=== PATIENT | male | born 1940 | race Caucasian/White ===

== ENCOUNTER → 2016-09-25 | Outpatient (CLI) | payer OTHER ==
[~2016-09-25] MED LIST: ACET-1256 PO; ACET-1325 PO; APR25 PO; ASPEC81 PO; ASPI325T39 PO; ASPI81TA28 PO; BISA1SUP4 PR; CALC-20 PO; CITA20TA4 PO; CLOP1TAB15 PO; DMX250 PO; DOCU100C31 PO; FURO80TA63 PO; GABA-112 PO; IPRASOL4 INH; LIDO2SOL19 PO; LIDOCAINE HCL 2% 2 ML VIAL (20MG/ML) ONE; LISI-461 PO; LISI5TAB3 PO; LRT5 PO; LSN10 PO; LSX80 PO; MCTP EXT; METO25TA56 PO; METO50TA16 PO; METO50TA17 PO; MOME220A INH; MOML PO; MULT-506 PO; NITR0.4D TD; NTRGSL/4 UT; NTRTP TD; OXYB5TAB74 PO; PANT1TAB48 PO; POLY335019 PO; POTA10CA28 PO; PRED10TA PO; PRLSR20 PO; PROPOFOL IV EMULSION 10 MG/ML 20 ML VIAL IV ONE; SENN-65 PO; SIMV40TA2 PO; SIMV80TA2 PO; SODI1ENE PR; TERA5CAP PO; TIOTCAP INH; VENL75CA PO
--- NOTE | 2016-09-25 10:41 | DIAGNOSTIC IMAGING REPORT ---
CHEST 2 VIEWS ROUTINE CLINICAL HISTORY: SHORTNESS OF BREATH dyspnea COMPARISON STUDY: 11/02/2013 FINDINGS: Mild cardia megaly. Multiple old right-sided rib fractures. Chronic pleural reactive change. Chronic left basilar atelectasis. Moderate increase in prominence of pulmonary vasculature. IMPRESSION: Chronic change. Pulmonary vascular congestion. Electronically signed by: Ward Proctor M.D. 09/25/2016 10:40 AM Dictated Date/Time: 09/25/2016 10:36 AM
[2016-09-25 12:09] LABS: BASO % 0.4 %; BASO ABS # 0.03 K/uL (0-0.2); COMPLETE YES; HEMATOCRIT 39.3 % (42-52); IG% 0.3 %; LYMPH % 16.9 %; LYMPH ABS # 1.16 K/uL (1.2-3.4); MEAN CELL VOLUME 102.1 fL (80-100); MEAN CORPUSCULAR HEMOGLOBIN 31.2 pg (25-34); MEAN CORPUSCULAR HGB CONC 30.5 g/dl (32-36); MEAN PLATELET VOLUME 11.6 fL (7.4-10.4); NEUT % 71.4 %; PLATELET COUNT 239 K/uL (130-400); RED BLOOD COUNT 3.85 M/uL (4.7-6.1); WHITE BLOOD COUNT 6.88 K/uL (4.8-10.8)
[2016-09-25 12:43] LABS: ALKALINE PHOSPHATASE 84 U/L (45-117); ALT/SGPT 26 U/L (12-78); AST/SGOT 9 U/L (15-37); BLOOD UREA NITROGEN 23 mg/dl (7-18); BUN/CREATININE RATIO 31.1 (10-20); CALCIUM 8.4 mg/dl (8.5-10.1); CARBON DIOXIDE 36 mmol/L (21-32); CHLORIDE 103 mmol/L (98-107); CREATININE 0.75 mg/dl (0.60-1.40); GLUCOSE 86 mg/dl (70-99); MAGNESIUM 2.4 mg/dl (1.8-2.4); POTASSIUM 3.7 mmol/L (3.5-5.1); SODIUM 146 mmol/L (136-145)
== END | disposition home or self-care (01) ==
LOC: C.RADPV 10:14
PROVIDERS: ATTEND Nurse Practitioner
DX: I10 Essential (primary) hypertension (principal); R60.9 Edema, unspecified; R06.02 Shortness of breath; R29.898 Other symptoms and signs involving the musculoskeletal system; J44.9 Chronic obstructive pulmonary disease, unspecified; R09.89 Other specified symptoms and signs involving the circulatory and respiratory systems

== ENCOUNTER 2016-10-28 10:26 | Inpatient (IN) | payer OTHER ==
[~2016-10-28] VITALS: Ht 172.7 cm; Wt 134.6 kg
[~2016-10-28 10:26] MED LIST changes: -ACET-1256 PO; -ACET-1325 PO; -ASPEC81 PO; -ASPI325T39 PO; -ASPI81TA28 PO; -BISA1SUP4 PR; -DMX250 PO; -LIDO2SOL19 PO; -LIDOCAINE HCL 2% 2 ML VIAL (20MG/ML) ONE; -LISI-461 PO; -LSN10 PO; -LSX80 PO; -MCTP EXT; -METO50TA16 PO; -METO50TA17 PO; -MOML PO; -NTRTP TD; -PANT1TAB48 PO; -POLY335019 PO; -POTA10CA28 PO; -PROPOFOL IV EMULSION 10 MG/ML 20 ML VIAL IV ONE; -SENN-65 PO; -SIMV80TA2 PO; -SODI1ENE PR; -VENL75CA PO
[2016-10-28] MEDS ORDERED: SIMV80TA2 PO (10:43)
[2016-10-28] MEDS ORDERED: ASPI325T39 PO (10:50)
--- NOTE | 2016-10-28 11:12 | EMERGENCY ROOM VISIT NOTE ---
History Report prepared by Jordana: Isaac Walker Under the Supervision of: Dr. Yamileth Olson M.D. First contact with patient: 10:41 Chief Complaint: RESPIRATORY PROBLEMS Stated Complaint: SHORTNESS OF BREATH Nursing Triage Summary: pt has hx copd, chf and mi pt more sob for past week resolved chest pain yesterday pt noticed increased swelling in bilateral lower legs pt on 2 litters oxygen at all the time pt given 2 ntg [facility] pt takes lasix daily did not increase dose this am unproductive cough History of Present Illness The patient is a 76 year old male who presents to the Emergency Room with complaints of intermittent chest pain since yesterday. The patient describes a pressure sensation rated 6/10 in severity. He also complains of a nonproductive cough and worsening shortness of breath over the past several weeks. He has swelling of the legs at baseline but notes that he has gained 74 pounds over the past several months. He denies fevers, vomiting, abdominal pain, or leg pain. The patient has a history of COPD, CHF, OR, DVT, and TIA. He wears 2 L oxygen at home. His stopped Coumadin 2-3 years ago He is a former smoker. The patient takes daily Aspirin. The patient has been compliant with his medications including this morning. Source of History: patient Onset: yesterday Position: chest Symptom Intensity: 6/10 Quality: pressure Timing: intermittent Associated Symptoms: + SOB, + cough, No abdominal pain, No fevers, No vomiting Review of Systems See HPI for pertinent positives & negatives. A total of 10 systems reviewed and were otherwise negative. Past Medical & Surgical Medical Problems: (1) Cancer of prostate (2) CHF (congestive heart failure) (3) COPD (chronic obstructive pulmonary disease) (4) DVT (deep venous thrombosis) (5) Heart disease (6) HTN (hypertension) (7) Hypercholesteremia (8) Myocardial infarct (9) TIA (transient ischemic attack) Surgical Problems: (1) History of appendectomy (2) Hx of tonsillectomy (3) Hx of vasectomy Family History Patient reports no known family medical history. Social History Smoking Status: Former Smoker Alcohol Use: none Drug Use: none Marital Status: Housing Status: lives with family Occupation Status: retired Current/Historical Medications Scheduled Aspirin (Aspirin Ec), 325 MG PO DAILY Calcium Carbonate-Vitamin D (Calcium 600 + D), 1 TABLET PO DAILY Clopidogrel (Plavix), 75 MG PO DAILY Docusate Sodium (Docusate Sodium), 100 MG PO BID Furosemide (Lasix), 80 MG PO BID Hydralazine Hcl (Apresoline), 25 MG PO BID Ipratropium-Albuterol (Duoneb), 1 TREATMENT INH UD Lisinopril (Zestril), 2.5 MG PO DAILY Metoprolol Tartrate (Lopressor) (Lopressor), 12.5 MG PO BID Mometasone Furoate (Asmanex 120 Metered Doses), 1 PUFF INH QPM Multivitamin (Multivitamin), 1 TABLET PO DAILY Nitroglycerin (Nitro-Dur 0.4 Mg/Hr), 1 PATCH TD DAILY Omeprazole (Prilosec), 20 MG PO DAILY Simvastatin (Zocor), 40 MG PO QPM Terazosin (Hytrin), 5 MG PO HS Scheduled PRN Nitroglycerin (Nitrostat), 0.4 MG UT UD PRN for Chest Pain Allergies Coded Allergies: No Known Allergies (Verified , 10/28/16) Physical Exam Vital Signs Date Time Temp Pulse Resp B/P Pulse Ox O2 Delivery O2 Flow Rate FiO2 10/28/16 14:24 70 20 174/68 94 Room Air 10/28/16 13:15 69 162/62 94 Nasal Cannula 3.0 10/28/16 12:01 64 10/28/16 10:51 75 24 215/98 94 Nasal Cannula 2.0 10/28/16 10:51 94 Nasal Cannula 2.0 10/28/16 10:39 37.0 70 16 203/87 93 Nasal Cannula 2.0 10/28/16 10:39 93 Nasal Cannula 2.0 Physical Exam Vital signs reviewed. General: Morbidly obese and chronically ill-appearing female, on nasal cannula oxygen. HEENT: No scleral icterus, PERRLA, neck supple. Atraumatic. Cardiovascular: Regular rate and rhythm, no extra sounds. Pulmonary: Clear to auscultation bilaterally, normal work of breathing. Abdomen: Soft, nontender, nondistended, positive bowel sounds. Musculoskeletal: Atraumatic, no peripheral edema. Neurologic: Patient awake alert and oriented x 3, full strength in all 4 extremities. Cranial nerves 2 through 12 grossly intact. Skin: Warm, dry, no rash Medical Decision & Procedures ER Provider Diagnostic Interpretation: X-ray results as stated below per my interpretation and radiologist interpretation. Other radiology results as stated below per my review and radiologist interpretation: CHEST ONE VIEW PORTABLE CLINICAL HISTORY: CHF dyspnea COMPARISON STUDY: 09/25/2016 FINDINGS: Congestive heart failure. Moderate cardiac enlargement. Mild left basilar atelectatic change. IMPRESSION: Congestive heart failure Electronically signed by: Ward Proctor M.D. 10/28/2016 12:46 PM Dictated Date/Time: 10/28/2016 12:43 PM BILATERAL LOWER EXTREMITY VENOUS DOPPLER HISTORY: Pain. Edema. BLE swelling COMPARISON STUDY: 08/19/2013 FINDINGS: There is normal compressibility, flow, and augmentation within the bilateral lower extremity deep venous systems. IMPRESSION: No DVT within the right or left lower extremity. Electronically signed by: Ward Proctor M.D. 10/28/2016 12:37 PM Dictated Date/Time: 10/28/2016 12:36 PM Laboratory Results Test 10/28/16 11:15 10/28/16 11:32 Immature Granulocyte % (Auto) 0.0 % White Blood Count 6.73 K/uL (4.8-10.8) Red Blood Count 4.17 M/uL (4.7-6.1) Hemoglobin 13.2 g/dL (14.0-18.0) Hematocrit 43.1 % (42-52) Mean Corpuscular Volume 103.4 fL (80-100) Mean Corpuscular Hemoglobin 31.7 pg (25-34) Mean Corpuscular Hemoglobin Concent 30.6 g/dl (32-36) Platelet Count 226 K/uL (130-400) Mean Platelet Volume 11.2 fL (7.4-10.4) Neutrophils (%) (Auto) 68.7 % Lymphocytes (%) (Auto) 19.5 % Monocytes (%) (Auto) 8.8 % Eosinophils (%) (Auto) 2.7 % Basophils (%) (Auto) 0.3 % Neutrophils # (Auto) 4.63 K/uL (1.4-6.5) Lymphocytes # (Auto) 1.31 K/uL (1.2-3.4) Monocytes # (Auto) 0.59 K/uL (0.11-0.59) Eosinophils # (Auto) 0.18 K/uL (0-0.5) Basophils # (Auto) 0.02 K/uL (0-0.2) Immature Granulocyte # (Auto) 0.00 K/uL (0.00-0.02) Prothrombin Time 10.5 SECONDS (9.0-12.0) Prothromb Time International Ratio 1.0 (0.9-1.1) Activated Partial Thromboplast Time 28.2 SECONDS (21.0-31.0) Partial Thromboplastin Ratio 1.1 Direct Bilirubin 0.1 mg/dl (0-0.2) Total Creatine Kinase 34 U/L (39-308) Creatine Kinase MB 0.8 ng/ml (0.5-3.6) Creatine Kinase MB Ratio 2.4 (0-3.0) Bedside Troponin I 0.010 ng/ml (0-0.045) OY-Cxz-U-Type Natriuretic Peptide 412 pg/ml (0-900) Laboratory results per my review. Medications Administered Medications (Trade) Dose Ordered Sig/Abhijeet Route Start Time Stop Time Status Last Admin Dose Admin Furosemide (Lasix Inj) 40 mg NOW STAT IV 10/28/16 13:12 10/28/16 13:13 DC 10/28/16 13:22 40 MG Nitroglycerin (Nitroglycerin 2% Oint) 1 inch NOW ONCE EXT 10/28/16 13:15 10/28/16 13:16 DC 10/28/16 13:22 1 INCH ECG Indication: SOB/dyspnea Rate (beats per minute): 72 Findings: PAC, no acute ischemic change, other (LVH) ED Course 1050: The patient was evaluated by the [facility]. 1110: Past medical records reviewed. The patient was evaluated in room C3. A complete history and physical examination was performed. 1312: Lasix 40 mg IV. 1315: Nitroglycerin 1 inch EXT. 1330: [facility] The patient will be evaluated. Medical Decision Differential diagnosis: Etiologies such as infections, reactive airway disease, pneumonia, pneumothorax , COPD, CHF, cardiac ischemia, pulmonary embolism, musculoskeletal, gastrointestinal, as well as others were entertained. This patient was evaluated and appeared to be in some respiratory discomfort. IV access was obtained and laboratory work was drawn. Chest x-ray was performed and reveals congestive changes. The patient was medicated with 1 inch of nitroglycerin glycerin paste due to the hypertension and congestive.. He was given Lasix 40 mg IV. Patient seems to be doing well with supplemental oxygen. EKG reveals no evidence of acute ischemia. Patient will be evaluated by the hospitalist service for further evaluation and management. Consults Time Called: 1320 Consulting Physician: Dr. [facility] Returned Call: 1330 1330: Case [facility]ke[facility] The patient will be evaluated. Impression Primary Impression: CHF (congestive heart failure) Scribe Attestation The scribe's documentation has been prepared under my direction and personally reviewed by me in its entirety. I confirm that the note above accurately reflects all work, treatment, procedures, and medical decision making performed by me. Departure Information Dispostion Being Evaluated By Hospitalist Referrals Andie Peace C.R.N.P (PCP) Patient Instructions My [facility] Health Problem Qualifiers Primary Impression: CHF (congestive heart failure) Congestive heart failure type: unspecified congestive heart failure type Congestive heart failure chronicity: acute Qualified Codes: I50.9 - Heart failure, unspecified
[2016-10-28 11:41] LABS: BASO % 0.3 %; BASO ABS # 0.02 K/uL (0-0.2); COMPLETE YES; EOS % 2.7 %; HEMATOCRIT 43.1 % (42-52); LYMPH % 19.5 %; LYMPH ABS # 1.31 K/uL (1.2-3.4); MEAN CELL VOLUME 103.4 fL (80-100); MEAN CORPUSCULAR HEMOGLOBIN 31.7 pg (25-34); MEAN CORPUSCULAR HGB CONC 30.6 g/dl (32-36); MEAN PLATELET VOLUME 11.2 fL (7.4-10.4); MONO % 8.8 %; NEUT % 68.7 %; PLATELET COUNT 226 K/uL (130-400); RED BLOOD COUNT 4.17 M/uL (4.7-6.1); WHITE BLOOD COUNT 6.73 K/uL (4.8-10.8)
[2016-10-28 11:50] LABS: PARTIAL THROMBOPLASTIN RATIO 1.1; PROTHROMBIN TIME (PATIENT) 10.5 SECONDS (9.0-12.0)
[2016-10-28 12:07] LABS: BUN/CREATININE RATIO 27.5 (10-20); CALCIUM 8.6 mg/dl (8.5-10.1); CKMB/CK RATIO 2.4 (0-3.0); CREATININE 0.77 mg/dl (0.60-1.40); MAGNESIUM 2.5 mg/dl (1.8-2.4); POTASSIUM 3.7 mmol/L (3.5-5.1)
--- NOTE | 2016-10-28 12:38 | DIAGNOSTIC IMAGING REPORT ---
BILATERAL LOWER EXTREMITY VENOUS DOPPLER HISTORY: Pain. Edema. BLE swelling COMPARISON STUDY: 08/19/2013 FINDINGS: There is normal compressibility, flow, and augmentation within the bilateral lower extremity deep venous systems. IMPRESSION: No DVT within the right or left lower extremity. Electronically signed by: Ward Proctor M.D. 10/28/2016 12:37 PM Dictated Date/Time: 10/28/2016 12:36 PM
--- NOTE | 2016-10-28 12:48 | DIAGNOSTIC IMAGING REPORT ---
CHEST ONE VIEW PORTABLE CLINICAL HISTORY: CHF dyspnea COMPARISON STUDY: 09/25/2016 FINDINGS: Congestive heart failure. Moderate cardiac enlargement. Mild left basilar atelectatic change. IMPRESSION: Congestive heart failure Electronically signed by: Ward Proctor M.D. 10/28/2016 12:46 PM Dictated Date/Time: 10/28/2016 12:43 PM
[2016-10-28] MEDS ORDERED: FUROSEMIDE 40 MG/4 ML VIAL IV STA (13:12)
[2016-10-28] MEDS ORDERED: NITROGLYCERIN OINT 2% 1GM PACKET EXT ONE (13:15)
[2016-10-28] MEDS ORDERED: ACETAMINOPHEN 325 MG TAB PO PRN (14:45)
[2016-10-28] MEDS ORDERED: NITROGLYCERIN 0.4 MG SL PER TAB CHARGE SL PRN (14:45)
[2016-10-28] MEDS ORDERED: ONDANSETRON INJ 2 MG/ML 2 ML VIAL IV PRN (14:45)
[2016-10-28 15:35] VITALS: O2SAT 95; Ht 172.7 cm; Wt 134.6 kg
[2016-10-28 16:15] VITALS: BP 154/65; PULSE 82; TEMP 36.4; O2SAT 94
--- NOTE | 2016-10-28 16:27 | History and Physical ---
History & Physical Date & Time of Service: Oct 28, 2016 at 16:14 Chief Complaint: Chf (Congestive Heart Failure) Primary Care Physician: Andie Peace C.R.N.P History of Present Illness Source: patient Pt is a 76 yo male with hx of COPD, diastolic CHF, HTN, IN, DVT who presents to the ER with complaints of worsening shortness of breath for past few weeks. Pt notes associated chest pain yesterday with sob, but has since resolved. Pt states also 14lb weight gain in past 2 weeks despite compliance with his lasix medication. Pt denies any fevers, chills, productive cough, abd pain, palpitations. He does states worsening bilateral leg pain and swelling as well. He has had hx of DVT in the past in which he was on coumadin for. Pt sees Dr Sawant for his CHF. He chronically wears 2L O2 at home. The patient takes daily Aspirin. The patient has been compliant with his medications including this morning. Past Medical/Surgical History Medical Problems: (1) Cancer of prostate Status: Resolved (2) CHF (congestive heart failure) Status: Chronic (3) COPD (chronic obstructive pulmonary disease) Status: Chronic (4) DVT (deep venous thrombosis) Status: Resolved (5) Heart disease Status: Chronic (6) HTN (hypertension) Status: Chronic (7) Hypercholesteremia Status: Chronic (8) Myocardial infarct Status: Resolved (9) TIA (transient ischemic attack) Status: Resolved Surgical Problems: (1) History of appendectomy Status: Resolved (2) Hx of tonsillectomy Status: Resolved (3) Hx of vasectomy Status: Resolved Family History Patient reports no known family medical history. Social History Smoking Status: Former Smoker Drug Use: none Marital Status: Housing status: lives with family Occupational Status: retired Immunizations History of Influenza Vaccine: Unknown Influenza Vaccine Date: Apr 20, 2013 History of Tetanus Vaccine?: Unknown Tetanus Immunization Date: Aug 22, 2010 History of Pneumococcal: Unknown Pneumococcal Date: Jun 22, 2011 History of Hepatitis B Vaccine: Unknown Multi-Drug Resistant Organisms History of MDRO: No Allergies Coded Allergies: No Known Allergies (Verified , 10/28/16) Home Medications Scheduled Aspirin (Aspirin Ec), 325 MG PO DAILY Calcium Carbonate-Vitamin D (Calcium 600 + D), 1 TABLET PO DAILY Clopidogrel (Plavix), 75 MG PO DAILY Docusate Sodium (Docusate Sodium), 100 MG PO BID Furosemide (Lasix), 80 MG PO BID Hydralazine Hcl (Apresoline), 25 MG PO BID Ipratropium-Albuterol (Duoneb), 1 TREATMENT INH UD Lisinopril (Zestril), 2.5 MG PO DAILY Metoprolol Tartrate (Lopressor) (Lopressor), 12.5 MG PO BID Mometasone Furoate (Asmanex 120 Metered Doses), 1 PUFF INH QPM Multivitamin (Multivitamin), 1 TABLET PO DAILY Nitroglycerin (Nitro-Dur 0.4 Mg/Hr), 1 PATCH TD DAILY Omeprazole (Prilosec), 20 MG PO DAILY Simvastatin (Zocor), 40 MG PO QPM Terazosin (Hytrin), 5 MG PO HS Scheduled PRN Nitroglycerin (Nitrostat), 0.4 MG UT UD PRN for Chest Pain Review of Systems Constitutional: No chills, No fever Respiratory: + dyspnea at rest, + shortness of breath, No cough, No sputum, No wheezing Cardiovascular: + edema, No chest pain, No orthopnea Abdomen: No diarrhea, No nausea, No pain, No vomiting Musculoskeletal: + calf pain, + muscle pain, + swelling, No joint pain Genitourinary - Male: No dysuria, No hematuria Neurologic: No numbness/tingling, No paralysis, No weakness Physical Exam Vital Signs Date Time Temp Pulse Resp B/P Pulse Ox O2 Delivery O2 Flow Rate FiO2 10/28/16 15:36 79 20 169/65 95 Nasal Cannula 10/28/16 15:35 95 Nasal Cannula 3.0 10/28/16 14:24 70 20 174/68 94 Room Air 10/28/16 13:15 69 162/62 94 Nasal Cannula 3.0 10/28/16 12:01 64 10/28/16 10:51 75 24 215/98 94 Nasal Cannula 2.0 10/28/16 10:51 94 Nasal Cannula 2.0 10/28/16 10:39 37.0 70 16 203/87 93 Nasal Cannula 2.0 10/28/16 10:39 93 Nasal Cannula 2.0 General Appearance: WD/WN, no apparent distress, + obese Neck: supple, no adenopathy Respiratory/Chest: chest non-tender, + decreased breath sounds Cardiovascular: no gallop, no JVD Abdomen/GI: non tender, soft Back: normal inspection, no CVA tenderness Neurologic/Psych: alert, normal mood/affect, oriented x 3 Skin: normal color, warm/dry Diagnostics Laboratory Results Results Past 24 Hours Test 10/28/16 11:15 Range/Units White Blood Count 6.73 4.8-10.8 K/uL Red Blood Count 4.17 4.7-6.1 M/uL Hemoglobin 13.2 14.0-18.0 g/dL Hematocrit 43.1 42-52 % Mean Corpuscular Volume 103.4 80-100 fL Mean Corpuscular Hemoglobin 31.7 25-34 pg Mean Corpuscular Hemoglobin Concent 30.6 32-36 g/dl Platelet Count 226 130-400 K/uL Mean Platelet Volume 11.2 7.4-10.4 fL Neutrophils (%) (Auto) 68.7 % Lymphocytes (%) (Auto) 19.5 % Monocytes (%) (Auto) 8.8 % Eosinophils (%) (Auto) 2.7 % Basophils (%) (Auto) 0.3 % Neutrophils # (Auto) 4.63 1.4-6.5 K/uL Lymphocytes # (Auto) 1.31 1.2-3.4 K/uL Monocytes # (Auto) 0.59 0.11-0.59 K/uL Eosinophils # (Auto) 0.18 0-0.5 K/uL Basophils # (Auto) 0.02 0-0.2 K/uL RDW Standard Deviation 53.3 36.4-46.3 fL RDW Coefficient of Variation 14.1 11.5-14.5 % Immature Granulocyte % (Auto) 0.0 % Immature Granulocyte # (Auto) 0.00 0.00-0.02 K/uL Prothrombin Time 10.5 9.0-12.0 SECONDS Prothromb Time International Ratio 1.0 0.9-1.1 Activated Partial Thromboplast Time 28.2 21.0-31.0 SECONDS Partial Thromboplastin Ratio 1.1 Sodium Level 146 136-145 mmol/L Potassium Level 3.7 3.5-5.1 mmol/L Chloride Level 100 98-107 mmol/L Carbon Dioxide Level 41 21-32 mmol/L Anion Gap 5.0 3-11 mmol/L Blood Urea Nitrogen 21 7-18 mg/dl Creatinine 0.77 0.60-1.40 mg/dl Est Creatinine Clear Calc Drug Dose 114.1 ml/min Estimated GFR () 102.9 Estimated GFR (Non- 88.8 BUN/Creatinine Ratio 27.5 10-20 Random Glucose 91 70-99 mg/dl Calcium Level 8.6 8.5-10.1 mg/dl Magnesium Level 2.5 1.8-2.4 mg/dl Total Bilirubin 0.4 0.2-1 mg/dl Direct Bilirubin 0.1 0-0.2 mg/dl Aspartate Amino Transf (AST/SGOT) 15 15-37 U/L Alanine Aminotransferase (ALT/SGPT) 39 12-78 U/L Alkaline Phosphatase 93 45-117 U/L Total Creatine Kinase 34 39-308 U/L Creatine Kinase MB 0.8 0.5-3.6 ng/ml Creatine Kinase MB Ratio 2.4 0-3.0 Total Protein 7.2 6.4-8.2 gm/dl Albumin 3.6 3.4-5.0 gm/dl Impression Assessment and Plan 73 y/o male with hx CAD, diastolic heart failure, HTN, COPD, MAX, h/o TIA and h/ o DVT admitted with worsening SOB Shortness of breath likely secondary to acute diastolic HF exacerbation - CXR notes cardiomegaly with congestive changes - Start on lasix 80 mg IV bid, cardiology consulted, pt reports ECHO completed yesterday at Dr. Gee office, will obtain records - Monitor creatinine, electrolytes - Daily weights, strict I/O - Cont lisinopril, metoprolol, statin COPD - Cont home O2 and inhalers CAD - No acute cardiac complaints, cont plavix, BB, statin, nitrate, no EKG changes on EKG HTN - Cont hydralazine and lisinopril BPH - Cont terazosin DVT ppx with heparin Pt is FULL CODE Advanced Directives Existing Living Will: No Existing Power of Tie Sawyer: No VTE Prophylaxis VTE Risk Assessment Done? Y/N: Yes Risk Level: Moderate
[2016-10-28 16:30] VITALS: O2SAT 94
[2016-10-28] MEDS: FUROSEMIDE INJ 80 MG in SYRINGE 0 ML IV SCH (16:49)
[2016-10-28] MEDS ORDERED: ALBUT/IPRATROP 3MG/0.5MG NEB 3 ML VIAL INH PRN (17:30)
[2016-10-28 19:13] VITALS: BP 172/52; PULSE 85; TEMP 36.6; O2SAT 92
--- NOTE | 2016-10-28 19:21 | CARDIOLOGY CONSULTATION ---
DATE OF CONSULTATION: 10/28/2016 REFERRING PHYSICIAN: Dr. Mckeon. HISTORY OF PRESENT ILLNESS: Mr. Brice Osei is a 76-year-old gentleman with a complex medical history including diastolic heart failure, history of cor pulmonale, severe sleep apnea and obstructive pulmonary disease who has been experiencing worsening dyspnea over several weeks' time. The patient generally is dyspneic but not at rest. He uses oxygen all of the time at home and is able to ambulate around his house without limiting dyspnea. Seems to be limited more by lassitude, weakness, fatigue and an inability to move his oxygen tanks around his house, rather than dyspnea itself. More recently however, he has been experiencing dyspnea even at rest and has been unable to perform his usual activities due to breathing difficulties. The patient also feels that during this period of time, he has gained approximately 14 pounds. He has chronic lower extremity edema which may be worse. He also feels that perhaps his abdomen has been swelling over that period of time. The patient generally sleeps on his right side. He is not compliant with CPAP. He does use oxygen at nighttime. Additional symptoms recently included the development of a sternal pain that appears to be well localized near the xiphoid process. This occurred yesterday, was fairly mild in nature and reproducible on palpation. The patient did take 2 nitroglycerins with some relief. He does not currently have these symptoms and claims to be compliant with his medical regimen and takes 160 mg of Lasix daily. He has not changed his diet recently, although likely eats a fairly high sodium diet as he does use added salt on occasion. He has not been experiencing any sense of palpitations or racing heartbeats recently. He is not able to keep track of his blood pressures at home. PAST MEDICAL HISTORY: Significant for: 1. COPD, currently using oxygen continuously at 2 liters per minute. The patient did suffer hypercapnic respiratory arrest in 2013, requiring intubation. 2. Obstructive sleep apnea, noncompliant with CPAP therapy. 3. Nonobstructive coronary disease. The patient underwent coronary angiography most recently in 2001. 4. Aortic insufficiency, previously characterized as mild or moderate. 5. Diastolic dysfunction, classified as stage I in 2014 with preserved left ventricular systolic function. 6. Prostate cancer. 7. Hypertension. 8. History of deep venous thrombosis. 9. Hyperlipidemia. 10. Gastroesophageal reflux disease. 11. Morbid obesity. 12. Lower leg cellulitis. 13. History of alcohol abuse. PAST SURGICAL HISTORY: Includes an appendectomy and a tonsillectomy. CURRENT OUTPATIENT MEDICATIONS: Include Asmanex, clopidogrel, Colace, furosemide, hydralazine, ipratropium and albuterol nebulizer, lisinopril, metoprolol, nitro patch, omeprazole, oxybutynin, simvastatin, terazosin. MEDICAL ALLERGIES: No known medical allergies. 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 He has an extensive history of tobacco abuse but claims to have quit 5 years ago. He currently drinks approximately 3 beers per week but reportedly has a history of alcohol abuse. Currently lives with his . FAMILY HISTORY: The patient's son in June of unclear causes. He has a brother and sister who appear to be relatively healthy. There does not appear to be premature coronary disease in his family. REVIEW OF SYSTEMS: Complete 10-system review of systems was performed and the pertinent positives are noted in the history of present illness. Does not report any constitutional symptoms such as fevers or chills or upper respiratory infections. He has not had any nausea or vomiting recently. He has had some mild anorexia, possibly due to his breathing difficulty. He has noticed some lower extremity edema which is chronic. He denies any change in his bowel or bladder habits. PHYSICAL EXAMINATION: GENERAL: The patient did not appear to be in acute distress. He is a pleasant individual who is alert and oriented. His mood and affect were normal and he answered all questions appropriately. CURRENT VITAL SIGNS: Include blood pressure 154/65 with pulse of 82. HEENT: His sclerae anicteric. Pupils equal, reactive to light and accommodation. Extraocular movements were intact. NECK: Palpation of submandibular region did not reveal any significant lymphadenopathy. The carotids were palpable bilaterally. I do not appreciate any bruits on auscultation. There was no evidence of thyromegaly. He has difficult to alum operator jugular venous distention due to redundancy of the neck tissues. LUNGS: Auscultation of his lungs revealed overall distant breath sounds with poor excursion and only occasional crackle at the bases bilaterally. There is no expiratory wheezing. CARDIAC: Revealed him to be in a regular rhythm. There was a soft systolic ejection murmur. S1, S2 otherwise appeared normal. The PMI did not appear to be markedly displaced. ABDOMEN: Very obese but nontender and is soft to palpation. EXTREMITIES: Evaluation of both wrists revealed radial pulses that were equal in intensity. There was no evidence of cyanosis or clubbing. Evaluation of lower extremities reveals marked edema in both legs. I do not appreciate any rashes on examination today. LABORATORY STUDIES: Obtained currently include a sodium 146, potassium of 3.7, BUN was 21, creatinine was 0.77. Liver function tests were normal. White cell count was 6.7, hemoglobin was 13.2, platelet count was 226. Single view chest x-ray was obtained at the time of admission which suggested evidence of pulmonary vascular congestion and cardiomegaly. I reviewed the patient's outpatient records including laboratory studies performed on 09/25/2016. At that time, the patient had N-terminal proBNP which was in the normal range. In 2013, the patient underwent dobutamine stress echocardiography at [facility], which did not reveal any evidence of inducible ischemia and preserved left ventricular systolic function at that time. There was mild to moderate aortic regurgitation and stage I diastolic dysfunction. Right ventricle was felt to be normal in size and function on that study. ASSESSMENT AND PLAN: Dyspnea. This is undoubtedly multifactorial, given the patient's underlying pulmonary disease. However, the gradual exacerbation of his breathing symptoms associated with the weight gain suggests an element of pulmonary vascular congestion. This is also suggested by his chest x-ray. Examination is difficult due to his body habitus and underlying lung disease. It would be reasonable to obtain an N-terminal proBNP currently as a baseline. It could be easily compared to the one obtained as an outpatient and may guide therapy. He was administered intravenous diuretic and is currently diuresing nicely, although he has not noticed any subjective improvement in his dyspnea. In the past, the patient has had preserved left ventricular systolic function and only stage I diastolic dysfunction in the setting of marked hypertension which was noted at the time of his presentation and certainly could have had an exacerbation of diastolic heart failure and efforts to control his blood pressure should be made in conjunction with diuresis. The patient also has a history of valvular heart disease which may have worsened. We will order an echocardiogram in order to reevaluate his cardiac parameters and this will also help to guide therapy. There does not appear to be another inciting event which could have caused cardiac decompensation. There is no history of medical noncompliance or change in his diet. He did not develop a documented arrhythmia. Certainly higher blood pressures may have caused some decompensation in his case. He has marked edema which also likely suggests an element of right-sided failure secondary to his primary pulmonary disease and this is simply consistent with cor pulmonale. There is no evidence that he had a recent ischemic event. The chest pain that he described is atypical in nature and reproducible. In the past, he has had nonobstructive coronary artery disease, although an evaluation has not been done in over 2 years. FINAL RECOMMENDATIONS: 1. Continue diuresis with intravenous Lasix, monitoring his response and adjusting doses accordingly. Net loss daily of 1 to 1-1/2 liters would seem reasonable, monitoring his renal function closely. 2. Aggressive blood pressure control with up titration of his oral regimen or in the acute setting, we will consider switch to intravenous nitrates versus topical nitrates, should his blood pressure continue to be high. 3. Echocardiogram. 4. N-terminal proBNP measurement. Additional recommendations pending results of his echocardiogram.
[2016-10-28 19:57] VITALS: PULSE 103; O2SAT 94
[2016-10-28] MEDS: ALBUT/IPRATROP 3MG/0.5MG NEB 3 ML VIAL INH SCH (19:57)
[2016-10-28] MEDS: MOMETASONE FUROATE 14 PUFF/1 INHALER INH SCH (21:00)
[2016-10-28] MEDS: METOPROLOL TARTRATE 25 MG TAB PO SCH (21:03)
[2016-10-28] MEDS: SIMVASTATIN 80 MG TAB PO SCH (21:03)
[2016-10-28] MEDS: HEPARIN SOD 5000 UNIT/0.5 ML CARP SQ SCH (21:04)
[2016-10-28] MEDS: DOCUSATE SODIUM 100 MG CAP PO SCH (21:04)
[2016-10-28 23:49] VITALS: BP 145/54; PULSE 88; TEMP 36.8; O2SAT 95
[2016-10-29] VITALS (13 sets, daily range): BP systolic 118–155; BP diastolic 49–75; PULSE 72–100; TEMP 36.8–36.9; O2SAT 88–96
[2016-10-29] MEDS: HEPARIN SOD 5000 UNIT/0.5 ML CARP SQ SCH ×3 (06:20→22:02)
[2016-10-29] MEDS: ALBUT/IPRATROP 3MG/0.5MG NEB 3 ML VIAL INH SCH ×4 (07:06→19:48)
[2016-10-29] MEDS: FUROSEMIDE INJ 80 MG in SYRINGE 0 ML IV SCH ×2 (07:57→17:18)
[2016-10-29] MEDS: DOCUSATE SODIUM 100 MG CAP PO SCH ×2 (07:58→20:52)
[2016-10-29] MEDS: ASPIRIN 325 MG ECTAB PO SCH (07:58)
[2016-10-29] MEDS: PANTOprazole SOD 40 MG TAB PO SCH (07:59)
[2016-10-29] MEDS: METOPROLOL TARTRATE 25 MG TAB PO SCH ×2 (07:59→20:53)
[2016-10-29] MEDS ORDERED: PANTOprazole SOD 40 MG TAB PO SCH (09:00)
[2016-10-29] MEDS ORDERED: LISINOPRIL 5 MG TAB PO SCH (09:00)
[2016-10-29 09:20] LABS: BUN/CREATININE RATIO 29.5 (10-20); CALCIUM 8.4 mg/dl (8.5-10.1); CREATININE 0.73 mg/dl (0.60-1.40); POTASSIUM 3.6 mmol/L (3.5-5.1)
--- NOTE | 2016-10-29 09:20 | DIAGNOSTIC IMAGING REPORT ---
CHEST ONE VIEW PORTABLE HISTORY: Hypoxia COMPARISON: Chest 10/28/2016. FINDINGS: No pneumothorax. Old, healed right-sided rib fractures. The heart is stable in size. Small bilateral pleural effusions have progressed. There are bibasilar linear densities. Mild central pulmonary vascular congestion without overt edema. IMPRESSION: 1. Progression of the small bilateral pleural effusions. 2. Bibasilar linear densities. This may represent subsegmental atelectasis. 3. Mild pulmonary vascular congestion without overt edema. Electronically signed by: Juno Rivera M.D. 10/29/2016 9:19 AM Dictated Date/Time: 10/29/2016 9:18 AM
--- NOTE | 2016-10-29 09:25 | Clinical Documentation Query ---
Jhony JAYNELEATHA : CLINICAL DOCUMENTATION QUERY Patient is a 76 year old male admitted for the evaluation and treatment of acute diastolic CHF. PMH includes COPD and H&P notes (patient) " chronically wears 2L O2 at home". As appropriate, consider clarification as suggested below as this directly impacts DRG assignment. Thank you. In your clinical opinion is this patient being managed for: ( x ) Chronic hypoxic respiratory failure ( ) Other explanation of clinical findings (Please Explain) ( ) Unable to determine (Please Define) ( ) Need to Discuss ( ) Not Agree The medical record reflects the following clinical findings, treatment, and risk factors. Clinical Indicators: As above Treatment: Ongoing supplemental oxygen Risk Factors: COPD Please clarify and document your clinical opinion in the progress notes and discharge summary. Terms such as "probable", "suspected", "likely", "questionable", "possible", or "still to be ruled out" are acceptable. IF IN AGREEMENT, YOU MUST DOCUMENT ABOVE DIAGNOSTIC STATEMENT IN DAILY PROGRESS NOTES AND DISCHARGE SUMMARY. This document is not part of the patient's record. Thank You, Santino Munson, RN [phone]
[2016-10-29 09:29] LABS: ALLEN TEST POS (POS); ARTERIAL BLOOD GAS BASE EXCESS 17.6 mEq/L (-9-1.8); ARTERIAL BLOOD GAS HCO3 47 mmol/L (19-24); ARTERIAL BLOOD GAS PO2 63 mm/Hg (80-95); ARTERIAL BLOOD GAS pH 7.35 (7.35-7.45); O2 ADMINISTRATION 5L
[2016-10-29] MEDS ORDERED: PERFLUTREN LIPID MICROSPHERE (DEFINITY) IV ONE (09:46)
[2016-10-29 10:41] LABS: POINT OF CARE TROPONIN I 0.01 ng/ml (0-0.045)
--- NOTE | 2016-10-29 11:53 | CARDIOLOGY PROGRESS NOTE ---
DATE: 10/29/2016 SUBJECTIVE: Mr. Osei claims to continue to have significant breathing difficulty. He has not noticed any improvement in his breathing. He has a nonproductive cough on occasion. He is not describing any symptoms of chest discomfort, but does have some mild right leg discomfort. PHYSICAL EXAMINATION: GENERAL: He was alert and oriented. His mood and affect appear normal. He answers all questions appropriately. VITAL SIGNS: Include a blood pressure of 135/59 with a pulse of 89. HEENT: Sclera are anicteric. LUNGS: Auscultation of his lung ponce revealed only occasional crackles on the bases bilaterally with generally poor air movement and some mild expiratory wheezing. CARDIAC EXAMINATION: Revealed him to be in a regular rhythm. I did not appreciate any murmurs on his exam. LOWER EXTREMITIES: Evaluation of his lower extremities revealed improvement in the edema with some trophic changes as well. LABORATORY STUDIES: Creatinine was 0.73. N-terminal proBNP was 507. ASSESSMENT AND PLAN: 1. Dyspnea: The patient has had diastolic heart failure in the past and likely has an element of diastolic dysfunction. Initially, this represented some acute decompensation, probably related to higher blood pressures; however, the patient has diuresed significantly over the course of the evening without notable improvement in his symptoms or oxygenation. N-terminal proBNP is also in the normal range. We are awaiting the results of the echocardiogram, but I suspect that the systolic function will be preserved and in the past he only had stage 1 diastolic dysfunction. Currently, I think pursuing alternative etiologies for his dyspnea would be merritt given both his lack of response, normal BNP, and previously preserved LV systolic function. There is a possibility that he has an element of cor pulmonale based on his lower extremity edema and general edema, this should be more evident on the echocardiogram obtained today. 2. Hypertension: His blood pressure is still not ideally controlled. He definitely is not feeling well and this may contribute. At this point, it would be reasonable to consider increasing his dose of lisinopril for improved blood pressure control as his renal function is normal. SATINDERD
[2016-10-29] MEDS: CLOPIDOGREL BISULFATE 75 MG TAB PO SCH (12:21)
--- NOTE | 2016-10-29 12:54 | Hospitalist Progress Note ---
Hospitalist Progress Note Date of Service Oct 29, 2016. Subjective Pt evaluation today including: conversation w/ patient, physical exam, chart review, lab review, review of studies, review of inpatient medication list Patient is feeling unwell. +SOB. Patient denies any fever, chills, sweats, lightheadedness, dizziness, vision changes, CP, palpitations, edema, wheezing, cough, abdominal pain, nausea, vomiting, diarrhea, urinary symptoms, melena, numbness/tingling, weakness, muscle/joint pain, anxiety/depression, active bleeding, or new skin discoloration/changes. Medications Current Inpatient Medications Medications (Trade) Dose Ordered Sig/Abhijeet Route Start Time Stop Time Status Last Admin Dose Admin Heparin Sodium (Porcine) (Heparin Sq 5000 Unit/0.5ml) 5,000 unit Q8 SQ 10/28/16 22:00 11/27/16 21:59 10/29/16 06:20 5,000 UNIT Acetaminophen (Tylenol Tab) 650 mg Q4H PRN PO 10/28/16 14:45 11/27/16 14:44 10/29/16 04:13 650 MG Ondansetron HCl (Zofran Inj) 4 mg Q6H PRN IV 10/28/16 14:45 11/27/16 14:44 Nitroglycerin 0.4 mg 0.4 mg UD PRN SL 10/28/16 14:45 11/27/16 14:44 Furosemide/Syringe (Lasix Inj/ Syringe) 8 ml @ 4 mls/min BID17 IV 10/28/16 17:00 11/27/16 16:59 10/29/16 07:57 4 MLS/MIN Aspirin (Ecotrin Tab) 325 mg DAILY PO 10/29/16 09:00 11/28/16 08:59 10/29/16 07:58 325 MG Clopidogrel Bisulfate (plAVix TAB) 75 mg DAILY PO 10/29/16 09:00 11/28/16 08:59 10/29/16 12:21 75 MG Docusate Sodium (coLACE CAP) 100 mg BID PO 10/28/16 21:00 11/27/16 20:59 10/29/16 07:58 100 MG Hydralazine HCl (Apresoline Tab) 25 mg BID PO 10/28/16 21:00 11/27/16 20:59 10/29/16 07:58 25 MG Lisinopril (Zestril Tab) 2.5 mg DAILY PO 10/29/16 09:00 11/28/16 08:59 10/29/16 07:59 2.5 MG Metoprolol Tartrate (Lopressor Tab) 12.5 mg BID PO 10/28/16 21:00 11/27/16 20:59 10/29/16 07:59 12.5 MG Mometasone Furoate (Asmanex 220MCG Inh) 1 puff QPM INH 10/28/16 21:00 11/27/16 20:59 Simvastatin (Zocor Tab) 40 mg QPM PO 10/28/16 21:00 11/27/16 20:59 10/28/16 21:03 40 MG Terazosin HCl (Hytrin Cap) 5 mg HS PO 10/28/16 21:00 11/27/16 20:59 10/28/16 21:03 5 MG Pantoprazole Sodium (Protonix Tab) 40 mg DAILY PO 10/29/16 09:00 11/28/16 08:59 10/29/16 07:59 40 MG Albuterol/ Ipratropium (Duoneb) 3 ml QIDR INH 10/28/16 20:00 11/27/16 19:59 10/29/16 07:06 3 ML Albuterol/ Ipratropium (Duoneb) 3 ml Q2R PRN INH 10/28/16 17:30 11/27/16 17:29 Objective Vital Signs Date Time Temp Pulse Resp B/P Pulse Ox O2 Delivery O2 Flow Rate FiO2 10/29/16 08:14 36.9 89 20 155/59 88 Nasal Cannula 4.0 10/29/16 08:00 95 Nasal Cannula 4.0 10/29/16 07:06 100 14 95 Nasal Cannula 3.0 10/29/16 04:00 Nasal Cannula 3.0 10/29/16 03:29 36.9 91 26 145/64 94 Nasal Cannula 3.0 10/29/16 00:02 Nasal Cannula 3.0 10/28/16 23:49 36.8 88 24 145/54 95 Nasal Cannula 3.0 10/28/16 20:00 Nasal Cannula 3.0 10/28/16 19:57 103 14 94 Nasal Cannula 3.0 10/28/16 19:13 36.6 85 18 172/52 92 Nasal Cannula 3.0 10/28/16 16:30 94 Nasal Cannula 3.0 10/28/16 16:15 36.4 82 17 154/65 94 Nasal Cannula 3.0 10/28/16 15:36 79 20 169/65 95 Nasal Cannula 10/28/16 15:35 95 Nasal Cannula 3.0 10/28/16 14:24 70 20 174/68 94 Room Air 10/28/16 13:15 69 162/62 94 Nasal Cannula 3.0 Physical Exam General Appearance: + mild distress (appears anxious secondary to SOB), + obese Eyes: normal inspection, PERRL ENT: hearing grossly normal Neck: supple Respiratory/Chest: + decreased breath sounds (throughout), + crackles ( bilateral lung bases ) Cardiovascular: regular rate, rhythm Abdomen: normal bowel sounds, non tender, soft Extremities: no pedal edema, no calf tenderness Neurologic/Psychiatric: alert, normal mood/affect, oriented x 3 Skin: normal color, warm/dry, no rash Laboratory Results Last 24 Hours Test 10/29/16 08:00 10/29/16 09:18 Sodium Level 142 mmol/L Potassium Level 3.6 mmol/L Chloride Level 95 mmol/L Carbon Dioxide Level 42 mmol/L Anion Gap 4.0 mmol/L Blood Urea Nitrogen 22 mg/dl Creatinine 0.73 mg/dl Est Creatinine Clear Calc Drug Dose 120.3 ml/min Estimated GFR () 105.2 Estimated GFR (Non- 90.7 BUN/Creatinine Ratio 29.5 Random Glucose 119 mg/dl Calcium Level 8.4 mg/dl Pro-B-Type Natriuretic Peptide 507 pg/ml Arterial Blood pH 7.35 Arterial Blood Partial Pressure CO2 88 mmHg Arterial Blood Partial Pressure O2 63 mm/Hg Arterial Blood HCO3 47 mmol/L Arterial Blood Oxygen Saturation 91.0 % Arterial Blood Base Excess 17.6 mEq/L Arterial Blood Gas Delivery 5L Arun Test POS Assessment and Plan 73 y/o male with hx CAD, diastolic heart failure, HTN, COPD, MAX, h/o TIA and h/ o DVT admitted with worsening SOB Shortness of breath likely secondary to acute on chronic diastolic HF exacerbation: - Admit to tele for cardiac monitoring--> reviewed- run of SVT at 0952 - CXR on 10/28- Cardiomegaly with congestive changes -- Repeat CXR on 10/29- Progression of the small bilateral pleural effusions. Bibasilar linear densities. This may represent subsegmental atelectasis. Mild pulmonary vascular congestion without overt edema. - Lasix 80 mg IV BID - Monitor daily weights and I&Os- good UO, -6.5L - ECHO pending - Cardiology consulted, appreciate recommendations Compensated respiratory acidosis, likely chronic secondary to COPD/MAX Weakness: Will consult PT/OT once patient's status improves COPD: - DuoNebs PRN - Continue home inhalers - Continue O2--> Wears 2L O2 24/ at home CAD: Continue Plavix 75 mg PO daily, Metoprolol 12.5 mg PO BID HTN: Continue Hydralazine 25 mg PO BID, Lisinopril 2.5 mg PO daily -- Continue to monitor BPs--> consider increasing Lisinopril HDL: Continue Zocor 40 mg PO QPM BPH: Continue Terazosin 5 mg PO HS MAX: - CPAP--> noncompliant - Pulse ox overnight study DVT prophylaxis: Heparin 5000 units SQ q8 hrs Code Status: LEVEL I, FULL Dispo: From home. PT/OT evaluations
--- NOTE | 2016-10-29 18:35 | ECHOCARDIOGRAM REPORT ---
*NOTICE TO RECEIVING LIBERTARIAN AGENCY This information is strictly Confidential and protected under [place] law. [place] law prohibits you from making any further disclosure of this information unless further disclosure is expressly permitted by the written consent of the person to whom it pertains or is authorized by law. A general authorization for the release of medical or other information is not sufficient for this purpose. Hospital accepts no responsibility if the information is made available to any other person, INCLUDING THE PATIENT. Interpretation Summary * Name: MELANY HERZOG Study Date: 10/29/2016 09:15 AM BP: 155/59 mmHg * Patient Location: .2E\S\E207\S\1 HR: 89 * : 1940 (M/d/yyyy) Gender: Male Height: 68 in * Age: 76 yrs Ethnicity: CA Weight: 310 lb * Ordering Physician: Edilia Rasheed * Performed By: Lucero Quintero RDCS * * Reason For Study: Congestive heart failure * BSA: 2.5 m2 * Normal biventricular systolic function. * Mild left ventricular hypertrophy. * Normal chamber dimensions. * Probable mild aortic stenosis. * Trace aortic regurgitation. * The study was technically difficult. Procedure Details * A complete two-dimensional transthoracic echocardiogram was performed (2D, M-mode, Doppler and color flow Doppler). * A contrast injection of Definity was performed to improve assessment of LV function. * Contrast was injected into an intravenous site in the left arm. * One vial of Definity ultrasound contrast was diluted in normal saline to a total volume of 10 ml. A total of '2' ml of solution was administered during imaging. * Lot # [id number] of Definity utilized for procedure. * Expiration date OCT 27. * The attending nurse who injected the contrast agent was Aiden Rojas RN. Left Ventricle * The left ventricle is normal in size. * There is mild concentric left ventricular hypertrophy. * Ejection Fraction = 65-70%. * Left ventricular systolic function is normal. * The left ventricular wall motion is normal. Right Ventricle * The right ventricular systolic function is normal as assessed by tricuspid annular plane systolic excursion (TAPSE) (normal >1.5 cm). Atria * The left atrial size is normal. * Right atrial size is normal. Mitral Valve * The mitral valve is grossly normal. * There is moderate mitral annular calcification. * There is no mitral valve stenosis. * Significant mitral regurgitation is absent. Tricuspid Valve * The tricuspid valve is not well visualized. * Significant tricuspid regurgitation is absent. * Right ventricular systolic pressure is normal. Aortic Valve * The aortic valve is not well visualized. * Mean gradient across aortic valve is consistent with mild aortic stenosis. * Trace aortic regurgitation. Pulmonic Valve * The pulmonic valve is not well visualized. * There is no significant pulmonary regurgitation. Great Vessels * Aortic root not well visualized. Appear's normal dimension. Pericardium/Pleural * There is no pericardial effusion. Great Vessels * Normal inferior vena cava diameter and respiratory variation suggests normal central venous pressure. MMode 2D Measurements and Calculations IVSd 1.2 cm LVIDd 5.4 cm LVIDs 3.4 cm LVPWd 1.3 cm IVS/LVPW 0.91 FS 37.0 % EDV(Teich) 142.3 ml ESV(Teich) 47.8 ml EF(Teich) 66.4 % EDV(cubed) 159.0 ml ESV(cubed) 39.7 ml EF(cubed) 75.0 % LV mass(C)d 275.3 grams LV mass(C)dI 111.8 grams/m\S\2 SV(Teich) 94.6 ml SI(Teich) 38.4 ml/m\S\2 SV(cubed) 119.3 ml SI(cubed) 48.4 ml/m\S\2 Ao root diam 2.8 cm Ao root area 6.2 cm\S\2 asc Aorta Diam 2.7 cm LVAd ap4 27.2 cm\S\2 LVLd ap4 7.9 cm EDV(MOD-sp4) 77.4 ml EDV(sp4-el) 80.1 ml LVAs ap4 14.6 cm\S\2 LVLs ap4 6.4 cm ESV(MOD-sp4) 27.0 ml ESV(sp4-el) 28.3 ml EF(MOD-sp4) 65.1 % EF(sp4-el) 64.7 % LVAd ap2 27.2 cm\S\2 LVLd ap2 7.5 cm EDV(MOD-sp2) 80.1 ml EDV(sp2-el) 84.0 ml LVAs ap2 14.3 cm\S\2 LVLs ap2 6.6 cm ESV(MOD-sp2) 27.4 ml ESV(sp2-el) 26.2 ml EF(MOD-sp2) 65.8 % EF(sp2-el) 68.8 % LVLd %diff -5.07 % EDV(MOD-bp) 78.3 ml LVLs %diff 3.6 % ESV(MOD-bp) 27.0 ml EF(MOD-bp) 65.5 % SV(MOD-sp4) 50.4 ml SI(MOD-sp4) 20.5 ml/m\S\2 SV(MOD-sp2) 52.6 ml SI(MOD-sp2) 21.4 ml/m\S\2 SV(MOD-bp) 51.3 ml SI(MOD-bp) 20.8 ml/m\S\2 SV(sp4-el) 51.8 ml SI(sp4-el) 21.0 ml/m\S\2 SV(sp2-el) 57.8 ml SI(sp2-el) 23.5 ml/m\S\2 Doppler Measurements and Calculations MV E max bere 83.3 cm/sec MV A max bere 72.8 cm/sec MV E/A 1.1 MV dec time 0.30 sec Ao V2 max 226.7 cm/sec Ao max PG 20.6 mmHg Ao max PG (full) 10.5 mmHg Ao V2 mean 138.3 cm/sec Ao mean PG 9.3 mmHg Ao V2 VTI 36.0 cm AI max bere 333.9 cm/sec AI max PG 44.6 mmHg AI dec slope 207.3 cm/sec\S\2 AI P1/2t 471.7 msec LV V1 max PG 10.1 mmHg LV V1 max 158.6 cm/sec SV(Ao) 223.3 ml SI(Ao) 90.7 ml/m\S\2 PA V2 max 103.2 cm/sec PA max PG 4.3 mmHg PA acc slope 387.6 cm/sec\S\2 PA acc time 0.18 sec TR max bere 148.0 cm/sec PA pr(Accel) -1.81 mmHg
[2016-10-29] MEDS: MOMETASONE FUROATE 14 PUFF/1 INHALER INH SCH (20:51)
[2016-10-29] MEDS: SIMVASTATIN 80 MG TAB PO SCH (20:54)
[2016-10-30] VITALS (16 sets, daily range): BP systolic 130–142; BP diastolic 42–69; PULSE 69–98; TEMP 36.5–36.9; O2SAT 87–96
[2016-10-30 01:36] LABS: HEMATOCRIT 38.6 % (42-52); MEAN CORPUSCULAR HEMOGLOBIN 31.1 pg (25-34); MEAN CORPUSCULAR HGB CONC 31.1 g/dl (32-36); MEAN PLATELET VOLUME 10.5 fL (7.4-10.4); PLATELET COUNT 206 K/uL (130-400); RED BLOOD COUNT 3.86 M/uL (4.7-6.1); WHITE BLOOD COUNT 8.62 K/uL (4.8-10.8)
[2016-10-30 01:56] LABS: BUN/CREATININE RATIO 32.4 (10-20); CALCIUM 7.9 mg/dl (8.5-10.1); CREATININE 0.8 mg/dl (0.60-1.40); MAGNESIUM 2.5 mg/dl (1.8-2.4); POTASSIUM 3.6 mmol/L (3.5-5.1)
[2016-10-30 01:59] LABS: ALB/GLOB RATIO 0.9 (0.9-2); PHOSPHORUS 3.1 mg/dl (2.5-4.9)
[2016-10-30] MEDS: HEPARIN SOD 5000 UNIT/0.5 ML CARP SQ SCH ×3 (05:57→22:16)
[2016-10-30] MEDS: ALBUT/IPRATROP 3MG/0.5MG NEB 3 ML VIAL INH SCH ×4 (07:17→19:24)
[2016-10-30 07:38] LABS: BUN/CREATININE RATIO 42.6 (10-20); CALCIUM 8.1 mg/dl (8.5-10.1); CREATININE 0.62 mg/dl (0.60-1.40); MAGNESIUM 2.6 mg/dl (1.8-2.4); POTASSIUM 3.5 mmol/L (3.5-5.1)
[2016-10-30] MEDS: CLOPIDOGREL BISULFATE 75 MG TAB PO SCH (07:42)
[2016-10-30] MEDS: METOPROLOL TARTRATE 25 MG TAB PO SCH ×2 (07:42→21:12)
[2016-10-30] MEDS: DOCUSATE SODIUM 100 MG CAP PO SCH ×2 (07:42→21:11)
[2016-10-30] MEDS: ASPIRIN 325 MG ECTAB PO SCH (07:42)
[2016-10-30] MEDS: PANTOprazole SOD 40 MG TAB PO SCH (07:43)
[2016-10-30] MEDS: FUROSEMIDE INJ 80 MG in SYRINGE 0 ML IV SCH (07:43)
[2016-10-30] MEDS: LISINOPRIL 10 MG TAB PO SCH (07:44)
--- NOTE | 2016-10-30 08:20 | Hospitalist Progress Note ---
Hospitalist Progress Note Date of Service Oct 30, 2016. Subjective Pt evaluation today including: conversation w/ patient, conversation w/ family , physical exam, chart review, lab review, review of studies Voiding: pearson catheter in place (draining concentrated urine ) Patient states he is feeling improved from yesterday, but still feels lousy. + SOB. +urinary symptoms. Patient denies any fever, chills, sweats, lightheadedness, dizziness, vision changes, CP, palpitations, edema, wheezing, cough, abdominal pain, nausea, vomiting, diarrhea, melena, numbness/tingling, weakness, muscle/joint pain, anxiety/depression, active bleeding, or new skin discoloration/changes. mentioned that patient is having burning with urination. Patient admits this has been ongoing for sometime now. He also is having difficulty w/ urination, stating he only dribbles when he goes to the bathroom- he does not feel he is voiding completely. also mentioned last PSA was 13. Patient does have a hx of prostate cancer. Medications Current Inpatient Medications Medications (Trade) Dose Ordered Sig/Abhijeet Route Start Time Stop Time Status Last Admin Dose Admin Heparin Sodium (Porcine) (Heparin Sq 5000 Unit/0.5ml) 5,000 unit Q8 SQ 10/28/16 22:00 11/27/16 21:59 10/30/16 05:57 5,000 UNIT Acetaminophen (Tylenol Tab) 650 mg Q4H PRN PO 10/28/16 14:45 11/27/16 14:44 10/29/16 04:13 650 MG Ondansetron HCl (Zofran Inj) 4 mg Q6H PRN IV 10/28/16 14:45 11/27/16 14:44 Nitroglycerin (Nitrostat Tab) 0.4 mg UD PRN SL 10/28/16 14:45 11/27/16 14:44 Aspirin (Ecotrin Tab) 325 mg DAILY PO 10/29/16 09:00 11/28/16 08:59 10/30/16 07:42 325 MG Clopidogrel Bisulfate (plAVix TAB) 75 mg DAILY PO 10/29/16 09:00 11/28/16 08:59 10/30/16 07:42 75 MG Docusate Sodium (coLACE CAP) 100 mg BID PO 10/28/16 21:00 11/27/16 20:59 10/30/16 07:42 100 MG Hydralazine HCl (Apresoline Tab) 25 mg BID PO 10/28/16 21:00 11/27/16 20:59 10/30/16 07:45 25 MG Mometasone Furoate (Asmanex 220MCG Inh) 1 puff QPM INH 10/28/16 21:00 11/27/16 20:59 10/29/16 20:51 1 PUFF Simvastatin (Zocor Tab) 40 mg QPM PO 10/28/16 21:00 11/27/16 20:59 10/29/16 20:54 40 MG Terazosin HCl (Hytrin Cap) 5 mg HS PO 10/28/16 21:00 11/27/16 20:59 10/29/16 20:52 5 MG Pantoprazole Sodium (Protonix Tab) 40 mg DAILY PO 10/29/16 09:00 11/28/16 08:59 10/30/16 07:43 40 MG Albuterol/ Ipratropium (Duoneb) 3 ml QIDR INH 10/28/16 20:00 11/27/16 19:59 10/30/16 11:01 3 ML Albuterol/ Ipratropium (Duoneb) 3 ml Q2R PRN INH 10/28/16 17:30 11/27/16 17:29 Lisinopril (Zestril Tab) 10 mg DAILY PO 10/30/16 09:00 11/29/16 08:59 10/30/16 07:44 10 MG Metoprolol Tartrate (Lopressor Tab) 25 mg BID PO 10/29/16 21:00 11/28/16 20:59 10/30/16 07:42 25 MG Furosemide (Lasix Tab) 80 mg BID PO 10/30/16 21:00 11/29/16 20:59 UNV Objective Vital Signs Date Time Temp Pulse Resp B/P Pulse Ox O2 Delivery O2 Flow Rate FiO2 10/30/16 07:26 36.5 73 28 142/54 92 Nasal Cannula 2.0 10/30/16 04:00 93 Nasal Cannula 2.0 10/30/16 02:35 36.5 71 32 130/47 93 Nasal Cannula 2.0 10/30/16 00:01 93 Nasal Cannula 2.0 3/20/17 23:31 36.8 72 22 118/75 93 Nasal Cannula 2.0 10/29/16 20:00 92 Nasal Cannula 2.0 10/29/16 19:52 81 16 92 Nasal Cannula 2.0 10/29/16 19:51 36.8 84 28 148/50 92 Nasal Cannula 2.0 10/29/16 16:00 95 Nasal Cannula 4.0 10/29/16 15:38 36.8 80 20 148/59 94 2.0 10/29/16 14:14 99 14 95 Nasal Cannula 3.0 10/29/16 12:28 36.8 81 20 127/49 95 Nasal Cannula 2.0 10/29/16 12:00 96 Nasal Cannula 4.0 10/29/16 08:14 36.9 89 20 155/59 88 Nasal Cannula 4.0 Physical Exam General Appearance: no apparent distress, + obese Eyes: normal inspection, PERRL ENT: hearing grossly normal Neck: supple Respiratory/Chest: no respiratory distress, no accessory muscle use, + decreased breath sounds (throughout ) Cardiovascular: regular rate, rhythm Abdomen: normal bowel sounds, non tender, soft Extremities: non-tender, no pedal edema Neurologic/Psychiatric: alert, normal mood/affect, oriented x 3 Skin: normal color, warm/dry, no rash Laboratory Results Last 24 Hours Test 10/29/16 09:18 10/30/16 01:29 10/30/16 06:47 Arterial Blood pH 7.35 Arterial Blood Partial Pressure CO2 88 mmHg Arterial Blood Partial Pressure O2 63 mm/Hg Arterial Blood HCO3 47 mmol/L Arterial Blood Oxygen Saturation 91.0 % Arterial Blood Base Excess 17.6 mEq/L Arterial Blood Gas Delivery 5L Arun Test POS White Blood Count 8.62 K/uL Red Blood Count 3.86 M/uL Hemoglobin 12.0 g/dL Hematocrit 38.6 % Mean Corpuscular Volume 100.0 fL Mean Corpuscular Hemoglobin 31.1 pg Mean Corpuscular Hemoglobin Concent 31.1 g/dl RDW Standard Deviation 51.2 fL RDW Coefficient of Variation 14.0 % Platelet Count 206 K/uL Mean Platelet Volume 10.5 fL Sodium Level 144 mmol/L 142 mmol/L Potassium Level 3.6 mmol/L 3.5 mmol/L Chloride Level 95 mmol/L 94 mmol/L Carbon Dioxide Level 50 mmol/L 44 mmol/L Anion Gap -1.0 mmol/L 4.0 mmol/L Blood Urea Nitrogen 26 mg/dl 26 mg/dl Creatinine 0.80 mg/dl 0.62 mg/dl Est Creatinine Clear Calc Drug Dose 109.8 ml/min 139.1 ml/min Estimated GFR () 101.3 112.5 Estimated GFR (Non- 87.4 97.0 BUN/Creatinine Ratio 32.4 42.6 Random Glucose 108 mg/dl 104 mg/dl Calcium Level 7.9 mg/dl 8.1 mg/dl Phosphorus Level 3.1 mg/dl Magnesium Level 2.5 mg/dl 2.6 mg/dl Total Bilirubin 0.4 mg/dl Aspartate Amino Transf (AST/SGOT) 11 U/L Alanine Aminotransferase (ALT/SGPT) 31 U/L Alkaline Phosphatase 80 U/L Total Protein 6.3 gm/dl Albumin 2.9 gm/dl Globulin 3.4 gm/dl Albumin/Globulin Ratio 0.9 Assessment and Plan 73 y/o male with hx CAD, diastolic heart failure, HTN, COPD, MAX, h/o TIA and h/ o DVT admitted with worsening SOB Shortness of breath likely secondary to acute on chronic diastolic HF exacerbation: - Admit to tele for cardiac monitoring--> reviewed- runs of SVT at 0952 and 1846 on 10/29, and at midnight on 10/30, multiple pauses (up to 3.5s) throughout night, rate otherwise 70-90s. - CXR on 10/28- Cardiomegaly with congestive changes -- Repeat CXR on 10/29- Progression of the small bilateral pleural effusions. Bibasilar linear densities. This may represent subsegmental atelectasis. Mild pulmonary vascular congestion without overt edema. - Treated w/ Lasix 80 mg IV BID x4 doses--> Resume Lasix 80 mg PO BID - Monitor daily weights and I&Os- good UO, -7.9L - ECHO- Normal biventricular systolic function. Mild left ventricular hypertrophy. Normal chamber dimensions. Probable mild aortic stenosis. Trace aortic regurgitation. - Cardiology consulted, appreciate recommendations Chronic hypoxic and hypercapnic respiratory failure, secondary to COPD/MAX: Continue O2 supplement Weakness: Consult PT/OT hx of adenocarcinoma of prostate s/p seed treatment: - Per records- PSA of 13.9 in May 2016--> recheck PSA level - Check U/A - d/c Pearson and assess how patient does w/ urination - Patient did follow w/ Dr. Mcleod- refuses to see him again COPD: - DuoNebs PRN - Continue home inhalers - Continue O2--> Wears 2L O2, 24/7 at home CAD: Continue Plavix 75 mg PO daily, Metoprolol 12.5 mg PO BID increased to 25 mg PO BID HTN: Continue Hydralazine 25 mg PO BID, Lisinopril 2.5 mg PO daily increased to 10 mg PO daily HDL: Continue Zocor 40 mg PO QPM BPH: Continue Terazosin 5 mg PO HS MAX: - CPAP--> noncompliant- discussed w/ patient and family about importance of CPAP use, patient/family both agree that patient will NOT being using CPAP as he cannot tolerate it - Pulse ox overnight study DVT prophylaxis: Heparin 5000 units SQ q8 hrs Code Status: LEVEL I, FULL Dispo: From home. PT/OT evaluations
--- NOTE | 2016-10-30 09:39 | CARDIOLOGY PROGRESS NOTE ---
DATE: 10/30/2016 This morning Mr. Osei claims he is feeling slightly better. He continues to have some breathing difficulty and complains primarily of right leg pain that occurs intermittently, sometimes with urination. It is described as a burning sensation and has been fairly chronic in nature and not exclusively related to this hospitalization. On physical examination he was alert and oriented. Mood and affect appeared normal. He answered all questions appropriately. He did not appear to be overtly dyspneic. His current vital signs included a blood pressure of 142/54 with a pulse of 73. Auscultation of his lung ponce revealed overall distant breath sounds, but no expiratory wheezing and only occasional crackles in the bases bilaterally. Cardiac examination revealed him to be in a regular rhythm. I did not appreciate any murmurs on exam. Evaluation of his lower extremities revealed continued peripheral edema. Laboratory studies obtained today included a white cell count of 8.6, hemoglobin of 12, a platelet count of 206. Sodium was 142, potassium was 3.5, BUN was 26, creatinine was 0.6. ASSESSMENT AND PLAN: 1. Acute decompensated diastolic heart failure. I think overall the patient is euvolemic currently. He does have evidence of swelling in his lower extremities which may be related to more chronic venous issues rather than intravascular volume overload. He diuresed quite aggressively at the time of admission and his end terminal proBNP is in the normal range. I think it would be reasonable to reinstitute his outpatient diuretic regimen of 80 mg of Lasix twice daily. He can be continued on his current medical regimen otherwise which includes aspirin, Plavix, metoprolol and Lisinopril. 2. Hypertension. I agree with the increased doses of metoprolol and Lisinopril. Good control of blood pressure likely diminished the chance that he has recurrent diastolic failure. 3. Acute decompensated hypercapnic respiratory failure. The patient had an ABG yesterday which demonstrates marked hypercapnia although well compensated metabolically. At this point efforts are being concentrated on improving his overall pulmonary status as this will likely have some effect on his chronic dyspnea.
[2016-10-30] MEDS: MOMETASONE FUROATE 14 PUFF/1 INHALER INH SCH (21:10)
[2016-10-30] MEDS: SIMVASTATIN 80 MG TAB PO SCH (21:12)
[2016-10-30] MEDS: FUROSEMIDE 80 MG TAB PO SCH (21:12)
[2016-10-31] VITALS (15 sets, daily range): BP systolic 92–159; BP diastolic 50–84; PULSE 69–95; TEMP 36.3–37; O2SAT 90–96
[2016-10-31 05:01] LABS: URINE APPEARANCE CLEAR (CLEAR); URINE BILIRUBIN NEG (NEG); URINE COLOR DK YELLOW; URINE NITRITE NEG (NEG); URINE PH 5.5 (4.5-7.5); URINE SPECIFIC GRAVITY 1.018 (1.000-1.030); UROBILINOGEN NEG (NEG); ZZURINE CULT IF INDIC CATH NO
[2016-10-31 05:03] LABS: MANUAL MICROSCOPIC REQUIRED? NO; REVIEW REQ? NO
[2016-10-31] MEDS: HEPARIN SOD 5000 UNIT/0.5 ML CARP SQ SCH ×3 (06:09→21:34)
[2016-10-31 06:48] LABS: BUN/CREATININE RATIO 38.1 (10-20); CREATININE 0.79 mg/dl (0.60-1.40); MAGNESIUM 2.7 mg/dl (1.8-2.4); POTASSIUM 3.6 mmol/L (3.5-5.1)
[2016-10-31 06:52] LABS: PROSTATE SPECIFIC ANTIGEN 12.3 ng/ml (0.000-4.000)
[2016-10-31] MEDS: ALBUT/IPRATROP 3MG/0.5MG NEB 3 ML VIAL INH SCH ×4 (06:59→19:20)
--- NOTE | 2016-10-31 07:44 | Hospitalist Progress Note ---
Hospitalist Progress Note Date of Service Oct 31, 2016. Subjective Pt evaluation today including: conversation w/ patient, physical exam, chart review, lab review, review of studies, review of inpatient medication list Pain: none PO Intake: good Voiding: no voiding problems The patient was seen and examined this morning. Patient reports feeling extremely tired today. Patient reports he only got 2 hours of sleep overnight, he underwent nocturnal oximetry testing last night and failed. Patient refuses to wear CPAP and understands that this is the main reason why he is feeling so tired. He has not gotten up to ambulate within the room yet today, but was encouraged to do so. He is also complaining of some bilateral lower leg pain today. The patient lives in a mobile home with 5 steps to get up into his house. He denies any chest pain, shortness of breath, palpitation, flutter. Additional Comments: ROS: Constitutional: No fever, chills, sweats, + fatigue Eyes: No diplopia, no changes in vision ENT: No sore throat, tinnitus, or trouble swallowing Respiratory: No shortness of breath, No dyspnea at rest, + SOB on exertion, no cough or sputum, wearing supplemental O2 at 2 L via NC chronically Cardiovascular: No chest pain, palpitations, or flutter Abdomen: No pain, No constipation, No diarrhea, No nausea, No vomiting Musculoskeletal: + Bilateral calf pain, No joint pain, No swelling Genitourinary : No dysuria or urinary frequency, No hematuria Neurologic: No numbness/tingling, no difficulty with ambulation, no sensory or motor deficits Psychiatric: No depression or anxiety symptoms Endocrine: No weight changes Integumentary: No itch, No rash Objective Vital Signs Date Time Temp Pulse Resp B/P Pulse Ox O2 Delivery O2 Flow Rate FiO2 10/31/16 07:02 95 16 91 Nasal Cannula 3.0 10/31/16 04:00 93 Nasal Cannula 3.0 10/31/16 03:41 36.7 78 32 147/62 93 Nasal Cannula 3.0 10/31/16 00:01 90 Nasal Cannula 3.0 10/30/16 23:50 36.9 85 30 134/50 90 Nasal Cannula 3.0 10/30/16 20:00 93 Nasal Cannula 2.0 10/30/16 19:25 36.7 98 20 142/69 93 10/30/16 19:24 86 16 93 Nasal Cannula 3.0 10/30/16 16:00 92 Nasal Cannula 2.0 10/30/16 15:39 36.9 73 18 131/42 95 10/30/16 15:25 75 16 90 Nasal Cannula 3.0 10/30/16 12:03 36.6 69 39 133/48 96 Nasal Cannula 2.0 10/30/16 12:00 92 Nasal Cannula 2.0 10/30/16 11:01 72 16 87 Nasal Cannula 2.0 10/30/16 08:00 92 Nasal Cannula 2.0 Physical Exam Notes: General: awake, alert, no apparent distress + morbidly obese Head: Normocephalic, atraumatic ENT: PERRL, EOMI, no pharyngeal exudate, mucous membranes moist Chest: + Wearing 2 L O2 via NC, breath sounds are difficult to auscultate due to body habitus, + expiratory wheezing, no other adventitious breath sounds Cardiac: Regular rate and rhythm, no murmur, no JVD, normal peripheral pulses, good capillary refill Extremities: Normal inspection, no peripheral edema or erythema, calfs tender to palpation bilaterally Psych: Normal mood and affect Neuro: AAO x 3, strength intact bilaterally and related 5/5, no motor deficits, speech is clear, no peripheral sensory deficits Laboratory Results Last 24 Hours Test 10/31/16 04:10 10/31/16 06:04 Urine Color DK YELLOW Urine Appearance CLEAR Urine pH 5.5 Urine Specific [place] 1.018 Urine Protein NEG Urine Glucose (UA) NEG Urine Ketones NEG Urine Occult Blood 3+ Urine Nitrite NEG Urine Bilirubin NEG Urine Urobilinogen NEG Urine Leukocyte Esterase SMALL Urine WBC (Auto) 5-10 /hpf Urine RBC (Auto) >30 /hpf Urine Hyaline Casts (Auto) 1-5 /lpf Urine Epithelial Cells (Auto) 10-20 /lpf Urine Bacteria (Auto) NEG Sodium Level 143 mmol/L Potassium Level 3.6 mmol/L Chloride Level 96 mmol/L Carbon Dioxide Level 46 mmol/L Anion Gap 1.0 mmol/L Blood Urea Nitrogen 30 mg/dl Creatinine 0.79 mg/dl Est Creatinine Clear Calc Drug Dose 108.4 ml/min Estimated GFR () 101.8 Estimated GFR (Non- 87.8 BUN/Creatinine Ratio 38.1 Random Glucose 112 mg/dl Calcium Level 8.0 mg/dl Magnesium Level 2.7 mg/dl Prostate Specific Antigen 12.300 ng/ml Assessment and Plan 73 y/o male with hx CAD, diastolic heart failure, HTN, COPD, MAX, h/o TIA and h/ o DVT admitted with worsening SOB Shortness of breath likely secondary to acute on chronic diastolic HF exacerbation: - CXR on 10/29- Progression of the small bilateral pleural effusions. Bibasilar linear densities. This may represent subsegmental atelectasis. Mild pulmonary vascular congestion without overt edema. - Diuresed well, appears euvolemic at this time, Resume Lasix 80 mg PO BID - ECHO- Normal biventricular systolic function. Mild left ventricular hypertrophy. Normal chamber dimensions. Probable mild aortic stenosis. Trace aortic regurgitation. - Does not appear to have signs of pulmonary hypertension per echocardiogram. - Cardiology consulted, appreciate recs - BP in the 130s and 140s, cards would like to see this better controlled, continue beta blockade- metoprolol increased to 50 mg BID, to new lisinopril 10 mg daily, continue hydralazine 25 mg daily, - Patient was encouraged to ambulate, PT OT on board, encouraged incentive spirometry. Chronic hypoxic and hypercapnic respiratory failure, secondary to COPD/MAX: COPD MAX on chronic O2 - Continue O2 supplement - Noc ox test completed overnight= failed so he does qualify for CPAP, although pt states he wont wear this, states he has history of claustrophobia and therefor the mask is intolerable - DuoNebs PRN - Continue home inhalers - Continue O2--> Wears 2L O2, / at home Hx of adenocarcinoma of prostate s/p seed treatment: - Per records- PSA of 13.9 in May 2016--> recheck PSA level - Check U/A - d/c Vega - patient denies any issues with urination, dysuria, hematuria, incontinence, increased frequency - Patient did follow w/ Dr. Mcleod- refuses to see him again CAD: - Continue Plavix 75 mg PO daily, Metoprolol 12.5 mg PO BID increased to 25 mg PO BID HTN: - Continue Hydralazine 25 mg PO BID, Lisinopril 2.5 mg PO daily increased to 10 mg PO daily HDL: - Continue Zocor 40 mg PO QPM BPH: - Continue Terazosin 5 mg PO HS DVT ppx: Heparin 5000 units SQ q8 hrs CODE STATUS: FULL CODE Dispo: From home. PT/OT evaluations, move out of telemetry today, likely discharge within 1 day
[2016-10-31] MEDS: METOPROLOL TARTRATE 50 MG TAB PO SCH ×2 (09:01→19:56)
[2016-10-31] MEDS: LISINOPRIL 10 MG TAB PO SCH (09:01)
[2016-10-31] MEDS: PANTOprazole SOD 40 MG TAB PO SCH (09:01)
[2016-10-31] MEDS: FUROSEMIDE 80 MG TAB PO SCH ×2 (09:01→16:30)
[2016-10-31] MEDS: ASPIRIN 325 MG ECTAB PO SCH (09:02)
[2016-10-31] MEDS: CLOPIDOGREL BISULFATE 75 MG TAB PO SCH (09:02)
[2016-10-31] MEDS: DOCUSATE SODIUM 100 MG CAP PO SCH ×2 (09:02→19:56)
--- NOTE | 2016-10-31 09:38 | CARDIOLOGY PROGRESS NOTE ---
DATE: 10/31/2016 DATE: 10/31/2016. SUBJECTIVE: This morning Mr. Osei claims he is feeling slightly tired. Leg pain which bothered him most of yesterday is not so prominent this morning. He cannot report a marked improvement in his breathing at this point. He does report significant dyspnea even after transporting form the bed to the commode and back. PHYSICAL EXAMINATION: GENERAL: On physical examination he was alert and oriented. His mood and affect appeared normal. CURRENT VITAL SIGNS: Included a blood pressure of 142/69 with a pulse of 98. LUNGS: Auscultation of both lung ponce reveal overall poor air movement with distant breath sounds. He has crackles in the right base. The remainder of the lung ponce appear to be clear. CARDIAC EXAMINATION: Revealed him to be in a regular rhythm. I did not appreciate any murmurs on exam. LOWER EXTREMITIES: Evaluation of his lower extremities revealed some improvement in his peripheral edema. The legs actually are soft this morning. LABORATORY STUDIES obtained today included a sodium of 143, potassium was 3.5, BUN was 30, creatinine was 0.79. ASSESSMENT AND PLAN: 1. Diastolic heart failure. The patient has preserved left ventricular systolic function. He diuresed pretty aggressively at the initial portion of his hospitalization. Overall his volume status is probably good at this point. I doubt that most of his breathing trouble is related to pulmonary vascular congestion. He has been returned to his usual outpatient regimen of diuretics and this seems to be effective in his case. 2. Hypertension. The patient's blood pressure is still not ideal. His antihypertensives were increased yesterday and we are likely not seeing the full effect at this time. I think it is reasonable to continue on his current doses and monitor this longitudinally. Good control of his blood pressure will likely reduce the additional risk of decompensated diastolic heart failure. 3. Dyspnea. The patient also has severe lung disease which is being managed by the primary service. At this point cardiology will sign off. Please have Mr. Brice Osei follow up routinely as an outpatient. If there are additional concerns regarding his cardiac condition at the time of this hospitalization please do not hesitate to call or notify our service.
[2016-10-31] MEDS: MOMETASONE FUROATE 14 PUFF/1 INHALER INH SCH (19:56)
[2016-10-31] MEDS: SIMVASTATIN 80 MG TAB PO SCH (19:56)
[2016-11-01] MEDS: HEPARIN SOD 5000 UNIT/0.5 ML CARP SQ SCH ×2 (05:31→13:24)
[2016-11-01 06:47] LABS: BLOOD UREA NITROGEN 36 mg/dl (7-18); BUN/CREATININE RATIO 44.9 (10-20); CALCIUM 8.1 mg/dl (8.5-10.1); CHLORIDE 96 mmol/L (98-107); CREATININE 0.79 mg/dl (0.60-1.40); GLUCOSE 107 mg/dl (70-99); MAGNESIUM 2.6 mg/dl (1.8-2.4); POTASSIUM 3.7 mmol/L (3.5-5.1); SODIUM 143 mmol/L (136-145)
[2016-11-01 06:59] LABS: CARBON DIOXIDE 45 mmol/L (21-32)
[2016-11-01 07:46] VITALS: BP 174/77; PULSE 79; TEMP 36.3; O2SAT 90
[2016-11-01 07:50] VITALS: PULSE 82; O2SAT 93
[2016-11-01] MEDS: ALBUT/IPRATROP 3MG/0.5MG NEB 3 ML VIAL INH SCH ×2 (07:50→11:18)
[2016-11-01] MEDS ORDERED: ASPIRIN 81 MG ECTAB PO SCH (08:00)
[2016-11-01] MEDS: LISINOPRIL 10 MG TAB PO SCH (08:15)
[2016-11-01] MEDS: METOPROLOL TARTRATE 50 MG TAB PO SCH (08:15)
[2016-11-01] MEDS: DOCUSATE SODIUM 100 MG CAP PO SCH (08:15)
[2016-11-01] MEDS: CLOPIDOGREL BISULFATE 75 MG TAB PO SCH (08:15)
[2016-11-01] MEDS: FUROSEMIDE 80 MG TAB PO SCH (08:15)
[2016-11-01] MEDS: PANTOprazole SOD 40 MG TAB PO SCH (08:16)
[2016-11-01 11:18] VITALS: PULSE 64; O2SAT 96
[2016-11-01 11:48] VITALS: BP 101/51; PULSE 65; TEMP 36.3; O2SAT 92
[2016-11-01] MEDS ORDERED: DMX250 PO (12:16)
[2016-11-01] MEDS ORDERED: LSN10 PO (12:16)
[2016-11-01] MEDS ORDERED: METO50TA17 PO (12:16)
[2016-11-01] MEDS ORDERED: ASPEC81 PO (12:16)
--- NOTE | 2016-11-01 12:24 | Discharge Summary ---
Discharge Summary Date of Service Nov 01, 2016. Discharge Summary Admission Date: Oct 28, 2016 at 14:42 Discharge Date: Nov 01, 2016 Discharge Disposition: Home Principal Diagnosis: Acute on chronic CHF exacerbation Immunizations: Have You Had Influenza Vaccine: Unknown Influenza Vaccine Date: Apr 20, 2013 History of Tetanus Vaccine?: Unknown Tetanus Immunization Date: Aug 22, 2010 History of Pneumococcal: Unknown Pneumococcal Date: Jun 22, 2011 History of Hepatitis B Vaccine: Unknown Procedures: Bilateral lower extremity venous Doppler 10/28/16 IMPRESSION: No DVT within the right or left lower extremity. Chest x-ray 10/28/16 IMPRESSION: Congestive heart failure Chest x-ray 10/29/16 IMPRESSION: 1. Progression of the small bilateral pleural effusions. 2. Bibasilar linear densities. This may represent subsegmental atelectasis. 3. Mild pulmonary vascular congestion without overt edema. Consultations: Cardiology Discharge Exam The patient was seen and examined this morning. Patient reports feeling about 80% back to normal, he is still reporting he feels a little weak on his feet. Patient is refusing home health services with physical therapy, his is also refusing although it was recommended by care management and the primary team. The patient has diuresed well, urine outs= 7 L. He is also adamant that he refuses to wear CPAP, despite numerous providers recommending that he wear it for his overall heart health. He wears 2 L oxygen via nasal cannula continuously Review of Systems: Constitutional: No chills, No fatigue, No fever Eyes: No diplopia, No worsening of vision ENT: No hearing loss, No trouble swallowing Respiratory: + dyspnea on exertion (mild, and improved), + problem reported (wears 2 L O2 via nasal cannula continuously), No cough, No dyspnea at rest, No shortness of breath, No sputum, No wheezing Cardiovascular: No chest pain, No orthopnea, No palpitations Abdomen: No constipation, No diarrhea, No nausea, No pain, No vomiting Musculoskeletal: No calf pain, No joint pain Genitourinary - Male: No dysuria, No hematuria Integumentary: No itch, No rash Physical Exam: General Appearance: WD/WN, no apparent distress, + obese, + pertinent finding (wearing 2 L O2 via nasal cannula) Eyes: PERRL, EOMI ENT: hearing grossly normal, pharynx normal Neck: supple, no JVD Respiratory/Chest: chest non-tender, lungs clear, no respiratory distress, no accessory muscle use Cardiovascular: regular rate, rhythm, no murmur, normal peripheral pulses Abdomen / GI: normal bowel sounds, non tender, soft, no organomegaly Extremities: no calf tenderness, no pedal edema Neurologic/Psychiatric: alert, normal mood/affect, oriented x 3 Skin: normal color, warm/dry Hospital Course H&P per Cole Mckeon History of Present Illness Source: patient Pt is a 76 yo male with hx of COPD, diastolic CHF, HTN, TN, DVT who presents to the ER with complaints of worsening shortness of breath for past few weeks. Pt notes associated chest pain yesterday with sob, but has since resolved. Pt states also 14lb weight gain in past 2 weeks despite compliance with his lasix medication. Pt denies any fevers, chills, productive cough, abd pain, palpitations. He does states worsening bilateral leg pain and swelling as well. He has had hx of DVT in the past in which he was on coumadin for. Pt sees Dr Sawant for his CHF. He chronically wears 2L O2 at home. The patient takes daily Aspirin. The patient has been compliant with his medications including this morning. Physical Exam Vital Signs Date Time Temp Pulse Resp B/P Pulse Ox O2 Delivery O2 Flow Rate FiO2 10/28/16 15:36 79 20 169/65 95 Nasal Cannula 10/28/16 15:35 95 Nasal Cannula 3.0 10/28/16 14:24 70 20 174/68 94 Room Air 10/28/16 13:15 69 162/62 94 Nasal Cannula 3.0 10/28/16 12:01 64 10/28/16 10:51 75 24 215/98 94 Nasal Cannula 2.0 10/28/16 10:51 94 Nasal Cannula 2.0 10/28/16 10:39 37.0 70 16 203/87 93 Nasal Cannula 2.0 10/28/16 10:39 93 Nasal Cannula 2.0 General Appearance: WD/WN, no apparent distress, + obese Neck: supple, no adenopathy Respiratory/Chest: chest non-tender, + decreased breath sounds Cardiovascular: no gallop, no JVD Abdomen/GI: non tender, soft Back: normal inspection, no CVA tenderness Neurologic/Psych: alert, normal mood/affect, oriented x 3 Skin: normal color, warm/dry Hospital course 73 y/o male with hx CAD, diastolic heart failure, HTN, COPD, MAX, h/o TIA and h/ o DVT admitted with worsening SOB. The patient was found to have acute on chronic CHF exacerbation. Patient was treated with IV diuresis, and had urine outs=7 L. He had an echocardiogram evaluation during admission, which showed biventricular systolic dysfunction, mild left ventricular hypertrophy, normal chamber dimensions, probable mild aortic stenosis, trace aortic regurg. During admission, the patients metoprolol was increased to 50 mg BID, and he was started on Diamox 250 mg. He was also found to have chronic hypoxemia, hypercapnic respiratory failure and was evaluated with a nocturnal oximetry test. He failed this study, although is adamant about refusing to wear CPAP at night he is agreeable to wearing his normal supplemental oxygen at 2 L chronically. The patient was also evaluated by care management who suggested that he have home health PT OT services at the time of discharge, he and his are refusing these services. The patient was stable for discharge to home today. Follow-up has been requested with his PCP within one week. Shortness of breath likely secondary to acute on chronic diastolic HF exacerbation: - CXR on 10/29- Progression of the small bilateral pleural effusions. Bibasilar linear densities. This may represent subsegmental atelectasis. Mild pulmonary vascular congestion without overt edema. - Diuresed well, appears euvolemic at this time, Resume Lasix 80 mg PO BID - ECHO- Normal biventricular systolic function. Mild left ventricular hypertrophy. Normal chamber dimensions. Probable mild aortic stenosis. Trace aortic regurgitation. - Does not appear to have signs of pulmonary hypertension per echocardiogram. - Cardiology consulted, appreciate recs - BP in the 130s and 140s, cards would like to see this better controlled, continue beta blockade- metoprolol increased to 50 mg BID, to new lisinopril 10 mg daily, continue hydralazine 25 mg daily, - Add Diamox 250mg daily at time of discharge. - Patient was encouraged to ambulate, PT OT on board, encouraged incentive spirometry. Chronic hypoxic and hypercapnic respiratory failure, secondary to COPD/MAX: COPD MAX on chronic O2 - Continue O2 supplement - Noc ox test completed overnight= failed so he does qualify for CPAP, although pt states he wont wear this, states he has history of claustrophobia and therefor the mask is intolerable - DuoNebs PRN - Continue home inhalers - Continue O2--> Wears 2L O2, 04/03 at home Hx of adenocarcinoma of prostate s/p seed treatment: - Per records- PSA of 13.9 in May 2016--> recheck PSA level - Check U/A - d/c Vega - patient denies any issues with urination, dysuria, hematuria, incontinence, increased frequency - Patient did follow w/ Dr. Mcleod- refuses to see him again CAD: - Continue Plavix 75 mg PO daily, Metoprolol 12.5 mg PO BID increased to 25 mg PO BID HTN: - Continue Hydralazine 25 mg PO BID, Lisinopril 2.5 mg PO daily increased to 10 mg PO daily HDL: - Continue Zocor 40 mg PO QPM BPH: - Continue Terazosin 5 mg PO HS DVT ppx: Heparin 5000 units SQ q8 hrs CODE STATUS: FULL CODE Dispo: discharged to home today Total Time Spent: Greater than 30 minutes This includes examination of the patient, discharge planning, medication reconciliation, and communication with other providers. Discharge Instructions Please refer to the electronic Patient Visit Report (Discharge Instructions) for additional information. Follow-Up Follow up with your Primary Care Provider within 1 week.
[2016-11-01 12:25] VITALS: BP 115/66
--- NOTE | 2016-11-01 12:28 | Discharge Instructions ---
Discharge Instructions Date of Service Nov 01, 2016. Admission Reason for Admission: Acute diastolic heart failure Discharge Discharge Diagnosis / Problem: Acute diastolic heart failure, chronic hypoxia and hypercapnia, sleep apnea Discharge Goals Goal(s): Improve function, Improve disease control Activity Recommendations Activity Limitations: resume your previous activity Lifting Limitations: none Exercise/Sports Limitations: as tolerated May Resume Sexual Activity: when tolerated Shower/Bathe: no limitations Driving or Machine Use: no limitations . Instructions / Follow-Up Instructions / Follow-Up Medications: please note new, changed or discontinued medications on your list - LISINOPRIL: increased to 10mg daily from 2.5mg, new script sent to pharmacy - LOPRESSOR: increased from 12.5mg twice a day to 50mg twice a day, new script sent to pharmacy - DIAMOX: new diuretic medication to keep bicarbonate lower, take once a day - OXYGEN: previously using 2L at all times, continue to use 2L at rest, increase to 3L when sleeping and 3L on exertion, script provided for these changes - NITRO PATCH: stopped As we discussed, you had a nocturnal desaturation study that demonstrated that your oxygen drops frequently during the night. It is my recommendation that you reconsider using CPAP at home for sleep apnea. Over time, if left untreated , the sleep apnea will make your lung and heart function worse and will ultimately lead to pulmonary hypertension that is irreversible and difficult to treat Also, you need to weigh yourself tomorrow AM and record this weight, this is your "dry weight." Every morning weigh yourself after you urinate but before you eat breakfast. If at any time you are 2-3 pounds more than your dry weight then you need to contact [facility] for instructions on increasing diuretics. FOLLOW UP - call for appointment with Andie Peace next week for hospital follow up - please get repeat lab work on Monday 11/06 with results to [facility] Call your Primary Care doctor if any of the following symptoms or problems start or get worse: * Shortness of breath or difficulty breathing * Wake up at night short of breath * Chest pain * Cough * Swelling of your hands, feet, or legs * More fatigued or tired with your normal activity * Palpitations - sudden fast heart beats WEIGHT * Weigh yourself every morning after using the bathroom. * Use the same scale. * Wear the same amount of clothing. * Write your weight down on a chart. * Call your Primary Care doctor if you gain more than 2-3 pounds in 1-2 days. MEDICATIONS * Use this discharge instruction sheet for medication instructions. * Take your medications at the time your doctor ordered. * Do not skip a dose of your medicines. * If you miss a dose of medicine, take it as soon as possible, but DO NOT DOUBLE A DOSE. * Read your medicine information when you get home. * Know all of the side effects of your medicine. If in doubt, ask your pharmacist * Call your Primary Care doctor's office if you have any side effects. * Be sure all of your doctors know what medicine and herbs you take (including cold, flu, and herbal medicine). Take the following with you to your follow-up doctor appointments: * Weight Chart * Medication List * List of questions Do not drink excessive alcohol, beer or wine. Current Hospital Diet Patient's current hospital diet: AHA Diet (Heart Healthy) Discharge Diet Recommended Diet: AHA Diet (Heart Healthy) Fluid Restriction: 2000 ml (8 cups) Procedures Procedures Performed: Echocardiogram: normal LV function, + diastolic dysfunction Nocturnal desaturation: over 6 minutes with saturations < 89%, frequent desaturations, suggests you need CPAP Pending Studies Studies pending at discharge: no Laboratory Results Last Resulted CBC 10/30/16 01:29 Last Resulted BMP 11/01/16 05:27 Medical Emergencies . Who to Call and When: Call 911 or go to the Emergency Room if: * If at any time you feel your situation is an emergency * You have tightness or pain in your chest that does not go away with rest or Nitroglycerin * You are very short of breath even with rest . Non-Emergent Contact Non-Emergency issues call your: Primary Care Provider Call Non-Emergent contact if: you have any medication questions . . "Provider Documentation" section prepared by Jeevan Bain. VTE Core Measure Inpt VTE Proph given/why not?: Unfractionated heparin SQ [place] Drug Monitoring Program Search Results: no issues identified
[2016-11-01 12:32] VITALS: BP 115/66; PULSE 65; TEMP 36.3; O2SAT 92
[2017-01-02] MEDS ORDERED: MCTP EXT (13:07)
[2017-01-02] MEDS ORDERED: POTA10CA28 PO (13:07)
[2017-01-02] MEDS ORDERED: IPRASOL4 INH (13:07)
[2017-01-02] MEDS ORDERED: LSX80 PO (13:07)
[2017-01-02] MEDS ORDERED: VENL75CA PO (13:07)
[2017-01-02] MEDS ORDERED: NTRTP TD (13:15)
== END 2016-11-01 13:37 | disposition home or self-care (01) | DRG 292 ==
LOC: ENRESERVDT → ENRESERVTM → EDBD 10:26 → C.EDC 10:27 → C.2E 14:42 → C.4E 10-31 10:25
PROVIDERS: ADMIT Hospitalist; ATTEND Internal Medicine
DX: I50.33 Acute on chronic diastolic (congestive) heart failure (principal); I47.1 Supraventricular tachycardia; J96.12 Chronic respiratory failure with hypercapnia; I10 Essential (primary) hypertension; J44.9 Chronic obstructive pulmonary disease, unspecified; I25.10 Atherosclerotic heart disease of native coronary artery without angina pectoris; G47.33 Obstructive sleep apnea (adult) (pediatric); I25.2 Old myocardial infarction; N40.0 Benign prostatic hyperplasia without lower urinary tract symptoms; Z91.19 Patient's noncompliance with other medical treatment and regimen; Z86.718 Personal history of other venous thrombosis and embolism; Z85.46 Personal history of malignant neoplasm of prostate; K21.9 Gastro-esophageal reflux disease without esophagitis; Z87.891 Personal history of nicotine dependence; Z86.73 Personal history of transient ischemic attack (TIA), and cerebral infarction without residual deficits; E78.00 Pure hypercholesterolemia, unspecified; I35.2 Nonrheumatic aortic (valve) stenosis with insufficiency; Z99.81 Dependence on supplemental oxygen

== ENCOUNTER → 2016-11-05 | Outpatient (CLI) | payer OTHER ==
[~2016-11-05] MED LIST changes: +ACET-1256 PO; +ACET-1325 PO; +ASPEC81 PO; +ASPI81TA28 PO; +BISA1SUP4 PR; -CITA20TA4 PO; +DMX250 PO; -GABA-112 PO; +LIDO2SOL19 PO; +LISI-461 PO; -LISI5TAB3 PO; -LRT5 PO; +LSN10 PO; +LSX80 PO; +MCTP EXT; -METO25TA56 PO; +METO50TA16 PO; +METO50TA17 PO; +MOML PO; -NITR0.4D TD; +NTRTP TD; -OXYB5TAB74 PO; +PANT1TAB48 PO; +POLY335019 PO; +POTA10CA28 PO; -PRED10TA PO; +SENN-65 PO; -SIMV40TA2 PO; +SIMV80TA2 PO; +SODI1ENE PR; -TIOTCAP INH; +VENL75CA PO
[2016-11-05 17:29] LABS: BLOOD UREA NITROGEN 29 mg/dl (7-18); BUN/CREATININE RATIO 29.7 (10-20); CALCIUM 8.5 mg/dl (8.5-10.1); CARBON DIOXIDE 40 mmol/L (21-32); CHLORIDE 101 mmol/L (98-107); CREATININE 0.96 mg/dl (0.60-1.40); GLUCOSE 96 mg/dl (70-99); POTASSIUM 4.1 mmol/L (3.5-5.1); SODIUM 142 mmol/L (136-145)
== END | disposition home or self-care (01) ==
LOC: C.LABPVFM 11:07
PROVIDERS: ATTEND Nurse Practitioner
DX: I10 Essential (primary) hypertension (principal)

== ENCOUNTER 2016-11-07 09:17 | Emergency (ER) | payer OTHER ==
[~2016-11-07] VITALS: Ht 172.7 cm; Wt 134.5 kg
[~2016-11-07 09:17] MED LIST changes: -ACET-1256 PO; -ACET-1325 PO; -ASPI81TA28 PO; -BISA1SUP4 PR; -LIDO2SOL19 PO; -LISI-461 PO; -LSX80 PO; -MCTP EXT; -METO50TA16 PO; -MOML PO; -NTRTP TD; -PANT1TAB48 PO; -POLY335019 PO; -POTA10CA28 PO; -SENN-65 PO; -SODI1ENE PR; -VENL75CA PO
[2016-11-07 09:24] VITALS: TEMP 36.3; O2SAT 95; Ht 172.7 cm; Wt 134.5 kg
--- NOTE | 2016-11-07 09:45 | DIAGNOSTIC IMAGING REPORT ---
SINGLE VIEW CHEST CLINICAL HISTORY: Dyspnea. FINDINGS: An AP, portable, upright chest radiograph is compared to study dated 10/29/2016. Correlation is made with chest CT dated 10/25/2013. The examination is degraded by portable technique and patient rotation. The heart is mildly enlarged and there is atherosclerotic calcification of the thoracic aorta. The pulmonary vasculature is noncongested. There is bibasilar atelectasis. Subpleural fat deposition is noted peripherally at the right lung base. There is no airspace consolidation typical for pneumonia or large pleural effusion. No pneumothorax is seen. The skeletal structures are osteopenic. There are numerous healed bilateral rib fractures. IMPRESSION: Cardiomegaly, bibasilar atelectasis, and chronic changes as above. There is no acute cardiopulmonary abnormality. Electronically signed by: Humberto Lynch M.D. 11/07/2016 9:44 AM Dictated Date/Time: 11/07/2016 9:41 AM
[2016-11-07 09:53] LABS: BASO % 0.3 %; BASO ABS # 0.03 K/uL (0-0.2); COMPLETE YES; EOS % 0.7 %; HEMATOCRIT 43.9 % (42-52); IG% 0.4 %; LYMPH % 9.9 %; LYMPH ABS # 1.05 K/uL (1.2-3.4); MEAN CELL VOLUME 105.5 fL (80-100); MEAN CORPUSCULAR HEMOGLOBIN 31.5 pg (25-34); MEAN CORPUSCULAR HGB CONC 29.8 g/dl (32-36); MEAN PLATELET VOLUME 10.8 fL (7.4-10.4); NEUT % 80.7 %; PLATELET COUNT 252 K/uL (130-400); RED BLOOD COUNT 4.16 M/uL (4.7-6.1); WHITE BLOOD COUNT 10.56 K/uL (4.8-10.8)
[2016-11-07] MEDS ORDERED: METO50TA16 PO (10:01)
[2016-11-07] MEDS ORDERED: ASPI81TA28 PO (10:01)
[2016-11-07] MEDS ORDERED: ACET-1325 PO (10:01)
[2016-11-07] MEDS ORDERED: LISI-461 PO (10:01)
[2016-11-07] MEDS ORDERED: MOME220A INH (10:03)
[2016-11-07 10:10] LABS: ALT/SGPT 36 U/L (12-78); BLOOD UREA NITROGEN 25 mg/dl (7-18); BUN/CREATININE RATIO 31.4 (10-20); CALCIUM 9.2 mg/dl (8.5-10.1); CARBON DIOXIDE 40 mmol/L (21-32); CHLORIDE 101 mmol/L (98-107); CREATININE 0.81 mg/dl (0.60-1.40); GLUCOSE 104 mg/dl (70-99); SODIUM 143 mmol/L (136-145)
[2016-11-07 10:15] LABS: ALB/GLOB RATIO 0.9 (0.9-2); ALKALINE PHOSPHATASE 94 U/L (45-117); AST/SGOT 20 U/L (15-37); CKMB/CK RATIO 2.3 (0-3.0)
[2016-11-07 11:10] LABS: URINE APPEARANCE CLOUDY (CLEAR); URINE BILIRUBIN NEG (NEG); URINE COLOR DK YELLOW; URINE NITRITE NEG (NEG); URINE SPECIFIC GRAVITY 1.021 (1.000-1.030); UROBILINOGEN NEG (NEG)
[2016-11-07 11:16] LABS: MANUAL MICROSCOPIC REQUIRED? NO; REVIEW REQ? NO
--- NOTE | 2016-11-07 12:33 | EMERGENCY ROOM VISIT NOTE ---
History Report prepared by Jordana: Isaac Walker Under the Supervision of: Dr. Petr Crooks M.D. First contact with patient: 09:23 Chief Complaint: BILATERAL LEG WEAKNESS Stated Complaint: GENERALIZED WEAKNESS History of Present Illness The patient is a 76 year old male with a history of CHF who presents to the Emergency Room with complaints of persistent generalized weakness that started this morning. The patient was unable to get up and go to the bathroom this morning secondary to weakness. The weakness is especially pronounced in the patient's legs. His told him that his legs are more swollen than baseline. The patient also complains of problems urinating during the day since being discharged from the hospital. He is short of breath at baseline. The patient was not this weak when he was discharged from the hospital. The patient was discharged on the for CHF. The patient was supposed to stop taking Metoprolol 25 mg and Lisinopril 2.5 mg and start taking Metoprolol 25 mg and Lisinopril 10 mg. The patient unintentionally has been taking his old and new medications. Patient denies LOC, headache, fevers, chills, diaphoresis, visual changes, neck pain, chest pain, nausea, vomiting, abdominal pain, back pain, melena, hematochezia, numbness, lymphadenopathy, rash, or other complaints. Source of History: patient Onset: this morning Position: other (generalized) Quality: other (weakness) Timing: other (persistent) Associated Symptoms: + urinary symptoms Review of Systems See HPI for pertinent positives and negatives. A total of ten systems were reviewed and were otherwise negative. Past Medical & Surgical Medical Problems: (1) Cancer of prostate (2) CHF (congestive heart failure) (3) COPD (chronic obstructive pulmonary disease) (4) DVT (deep venous thrombosis) (5) Heart disease (6) HTN (hypertension) (7) Hypercholesteremia (8) Myocardial infarct (9) TIA (transient ischemic attack) Surgical Problems: (1) History of appendectomy (2) Hx of tonsillectomy (3) Hx of vasectomy Family History Patient reports no known family medical history. Social History Smoking Status: Former Smoker Alcohol Use: none Drug Use: none Marital Status: Housing Status: lives with family Occupation Status: retired Current/Historical Medications Scheduled Acetazolamide (Acetazolamide), 250 MG PO DAILY Aspirin (Aspirin Ec), 81 MG PO DAILY Calcium Carbonate-Vitamin D (Calcium 600 + D), 1 TABLET PO DAILY Clopidogrel (Plavix), 75 MG PO DAILY Docusate Sodium (Docusate Sodium), 100 MG PO BID Furosemide (Lasix), 80 MG PO BID Hydralazine Hcl (Apresoline), 25 MG PO BID Ipratropium-Albuterol (Duoneb), 1 TREATMENT INH UD Lisinopril (Zestril), 10 MG PO DAILY Metoprolol Tartrate (Lopressor) (Lopressor), 50 MG PO BID Mometasone Furoate (Inhalation (Asmanex Twisthaler 120 Me), 1 PUFFS INH QPM Multivitamin (Multivitamin), 1 TABLET PO DAILY Omeprazole (Prilosec), 20 MG PO DAILY Simvastatin (Zocor), 40 MG PO QPM Terazosin (Hytrin), 5 MG PO HS Scheduled PRN Nitroglycerin (Nitrostat), 0.4 MG UT UD PRN for Chest Pain Allergies Coded Allergies: No Known Allergies (Verified , 11/07/16) Physical Exam Vital Signs Date Time Temp Pulse Resp B/P Pulse Ox O2 Delivery O2 Flow Rate FiO2 11/07/16 15:00 78 30 159/53 95 Nasal Cannula 3.0 11/07/16 13:40 85 11/07/16 12:51 82 32 169/64 94 11/07/16 12:27 74 36 194/85 97 Nasal Cannula 2.0 11/07/16 10:36 79 32 184/95 95 Nasal Cannula 2.0 11/07/16 09:54 75 32 170/60 96 11/07/16 09:30 81 11/07/16 09:24 36.3 80 28 161/61 95 2.0 11/07/16 09:24 95 Nasal Cannula 2.0 Physical Exam GENERAL: Awake, alert, tired-appearing, in no distress HENT: Normocephalic, atraumatic. Oropharynx unremarkable. EYES: Normal conjunctiva. Sclera non-icteric. NECK: Supple. No nuchal rigidity. FROM. No JVD. RESPIRATORY: Clear to auscultation. Mildly tachypneic. CARDIAC: Regular rate, normal rhythm. Extremities warm and well perfused. Pulses equal. ABDOMEN: Soft, non-distended. No tenderness to palpation. No rebound or guarding. No masses. RECTAL: Deferred. MUSCULOSKELETAL: Chest examination reveals no tenderness. The back is symmetrical on inspection without obvious abnormality. There is no CVA tenderness to palpation. No joint edema. LOWER EXTREMITIES: Calves are equal size bilaterally and non-tender. 1+ pedal edema bilaterally, chronic venous discoloration. NEURO: Normal sensorium. No sensory or motor deficits noted. SKIN: No rash or jaundice noted. Medical Decision & Procedures ER Provider Diagnostic Interpretation: X-ray: Per my interpretation, radiologist review. SINGLE VIEW CHEST CLINICAL HISTORY: Dyspnea. FINDINGS: An AP, portable, upright chest radiograph is compared to study dated 10/29/2016. Correlation is made with chest CT dated 10/25/2013. The examination is degraded by portable technique and patient rotation. The heart is mildly enlarged and there is atherosclerotic calcification of the thoracic aorta. The pulmonary vasculature is noncongested. There is bibasilar atelectasis. Subpleural fat deposition is noted peripherally at the right lung base. There is no airspace consolidation typical for pneumonia or large pleural effusion. No pneumothorax is seen. The skeletal structures are osteopenic. There are numerous healed bilateral rib fractures. IMPRESSION: Cardiomegaly, bibasilar atelectasis, and chronic changes as above. There is no acute cardiopulmonary abnormality. Electronically signed by: Humberto Lynch M.D. 11/07/2016 9:44 AM Dictated Date/Time: 11/07/2016 9:41 AM Laboratory Results 11/07/16 09:33 Red Blood Count 4.16, Mean Corpuscular Volume 105.5, Mean Corpuscular Hemoglobin 31.5, Mean Corpuscular Hemoglobin Concent 29.8, Mean Platelet Volume 10.8, Neutrophils (%) (Auto) 80.7, Lymphocytes (%) (Auto) 9.9, Monocytes (%) ( Auto) 8.0, Eosinophils (%) (Auto) 0.7, Basophils (%) (Auto) 0.3, Neutrophils # ( Auto) 8.53, Lymphocytes # (Auto) 1.05, Monocytes # (Auto) 0.84, Eosinophils # ( Auto) 0.07, Basophils # (Auto) 0.03 11/07/16 09:33 Test 11/07/16 09:33 11/07/16 09:38 11/07/16 10:50 White Blood Count 10.56 K/uL (4.8-10.8) Red Blood Count 4.16 M/uL (4.7-6.1) Hemoglobin 13.1 g/dL (14.0-18.0) Hematocrit 43.9 % (42-52) Mean Corpuscular Volume 105.5 fL (80-100) Mean Corpuscular Hemoglobin 31.5 pg (25-34) Mean Corpuscular Hemoglobin Concent 29.8 g/dl (32-36) Platelet Count 252 K/uL (130-400) Mean Platelet Volume 10.8 fL (7.4-10.4) Neutrophils (%) (Auto) 80.7 % Lymphocytes (%) (Auto) 9.9 % Monocytes (%) (Auto) 8.0 % Eosinophils (%) (Auto) 0.7 % Basophils (%) (Auto) 0.3 % Neutrophils # (Auto) 8.53 K/uL (1.4-6.5) Lymphocytes # (Auto) 1.05 K/uL (1.2-3.4) Monocytes # (Auto) 0.84 K/uL (0.11-0.59) Eosinophils # (Auto) 0.07 K/uL (0-0.5) Basophils # (Auto) 0.03 K/uL (0-0.2) RDW Standard Deviation 54.7 fL (36.4-46.3) RDW Coefficient of Variation 14.1 % (11.5-14.5) Immature Granulocyte % (Auto) 0.4 % Immature Granulocyte # (Auto) 0.04 K/uL (0.00-0.02) Anion Gap 2.0 mmol/L (3-11) Est Creatinine Clear Calc Drug Dose 105.7 ml/min Estimated GFR () 100.8 Estimated GFR (Non- 86.9 BUN/Creatinine Ratio 31.4 (10-20) Calcium Level 9.2 mg/dl (8.5-10.1) Total Bilirubin 0.5 mg/dl (0.2-1) Aspartate Amino Transf (AST/SGOT) 20 U/L (15-37) Alanine Aminotransferase (ALT/SGPT) 36 U/L (12-78) Alkaline Phosphatase 94 U/L (45-117) Total Creatine Kinase 128 U/L (39-308) Creatine Kinase MB 2.9 ng/ml (0.5-3.6) Creatine Kinase MB Ratio 2.3 (0-3.0) Troponin I < 0.015 ng/ml (0-0.045) Pro-B-Type Natriuretic Peptide 405 pg/ml (0-900) Total Protein 7.3 gm/dl (6.4-8.2) Albumin 3.4 gm/dl (3.4-5.0) Globulin 3.9 gm/dl (2.5-4.0) Albumin/Globulin Ratio 0.9 (0.9-2) Bedside Lactic Acid Venous 1.17 mmol/L (0.90-1.70) Urine Color DK YELLOW Urine Appearance CLOUDY (CLEAR) Urine pH 8.0 (4.5-7.5) Urine Specific [place] 1.021 (1.000-1.030) Urine Protein NEG (NEG) Urine Glucose (UA) NEG (NEG) Urine Ketones TRACE (NEG) Urine Occult Blood NEG (NEG) Urine Nitrite NEG (NEG) Urine Bilirubin NEG (NEG) Urine Urobilinogen NEG (NEG) Urine Leukocyte Esterase TRACE (NEG) Urine WBC (Auto) 1-5 /hpf (0-5) Urine RBC (Auto) 0-4 /hpf (0-4) Urine Hyaline Casts (Auto) 1-5 /lpf (0-5) Urine Epithelial Cells (Auto) 5-10 /lpf (0-5) Urine Bacteria (Auto) NEG (NEG) Laboratory results reviewed by ia ECG Indication: weakness Rate (beats per minute): 77 Rhythm: sinus rhythm Findings: nonspecific-ST abn (Lateral), PVC ED Course 0957: The patient was evaluated in room B2. A complete history and physical exam was performed. 1325: The patient is doing well. A [facility] evaluation is pending. 1445: The patient was accepted by [facility]. Medical Decision Triage Nursing notes reviewed. The patient's presentation and history were concerning for generalized weakness.. Etiologies such as metabolic, infection, hypo/hyperglycemia, electrolyte abnormalities, cardiac sources, intracerebral event, toxicologic, neurologic, as well as others were entertained. The patient was evaluated. He was generally weak. He had no focal weakness. He had no drift. The patient was recently in the hospital for CHF. He does note inadvertently taking extra metoprolol and lisinopril. The patient was not hypotensive. He was not bradycardic. Chest x-ray revealed no acute findings. ECG did not reveal any acute findings. His CBC, chemistry panel, lactate, cardiac markers and BNP were unremarkable except for mild anemia. Urinalysis did not show any signs of infection. The patient states that he was getting weaker by the day since discharge. Because of this inpatient care was felt to be appropriate. A consultation was made to rehabilitation medicine. The patient was reviewed by [facility]. He was accepted. The patient was given his medications that he missed today, Diamox 250 mg, Lasix 80 mg, hydralazine 25 mg, Lopressor 50 mg, and lisinopril 10 mg. The chart was completed utilizing [employer] Speech voice recognition software. Grammatical errors, random word insertions, pronoun errors, and incomplete sentences are an occasional consequence of this system due to software limitations, ambient noise, and hardware issues. Any formal questions or concerns about the content, text, or information contained within the body of this dictation should be directly addressed to the physician for clarification. Impression Primary Impression: Generalized weakness Scribe Attestation The scribe's documentation has been prepared under my direction and personally reviewed by me in its entirety. I confirm that the note above accurately reflects all work, treatment, procedures, and medical decision making performed by me. Departure Information Dispostion Other (Transfer To [facility]) Referrals Andie Peace C.R.N.P (PCP) Patient Instructions My [facility]
[2016-11-07] MEDS ORDERED: AcetaZOLAMIDE 250 MG TAB PO STA (15:24)
[2016-11-07] MEDS ORDERED: METOPROLOL TARTRATE 50 MG TAB PO STA (15:24)
[2016-11-07] MEDS ORDERED: LISINOPRIL 5 MG TAB PO ONE (15:30)
[2016-11-07] MEDS ORDERED: FUROSEMIDE 40 MG TAB PO ONE (15:30)
[2016-11-07 16:29] VITALS: BP 184/84; PULSE 68; O2SAT 94
[2016-11-08] MEDS ORDERED: PANT1TAB48 PO (11:09)
[2016-11-08] MEDS ORDERED: SENN-65 PO (11:09)
[2016-11-08] MEDS ORDERED: BISA1SUP4 PR (11:12)
[2016-11-08] MEDS ORDERED: POLY335019 PO (11:12)
[2016-11-08] MEDS ORDERED: LIDO2SOL19 PO (11:12)
[2016-11-08] MEDS ORDERED: MOML PO (11:12)
[2016-11-08] MEDS ORDERED: ACET-1256 PO (11:12)
[2016-11-08] MEDS ORDERED: SODI1ENE PR (11:12)
[2017-01-02] MEDS ORDERED: VENL75CA PO (13:07)
[2017-01-02] MEDS ORDERED: LSX80 PO (13:07)
[2017-01-02] MEDS ORDERED: POTA10CA28 PO (13:07)
[2017-01-02] MEDS ORDERED: IPRASOL4 INH (13:07)
[2017-01-02] MEDS ORDERED: MCTP EXT (13:07)
[2017-01-02] MEDS ORDERED: NTRTP TD (13:15)
== END 2016-11-07 16:40 ==
LOC: EDBD 09:17 → C.EDB 09:20
DX: R53.1 Weakness (principal); I50.9 Heart failure, unspecified; Z85.46 Personal history of malignant neoplasm of prostate; J44.9 Chronic obstructive pulmonary disease, unspecified; Z86.718 Personal history of other venous thrombosis and embolism; I10 Essential (primary) hypertension; E78.00 Pure hypercholesterolemia, unspecified; I25.2 Old myocardial infarction; Z86.73 Personal history of transient ischemic attack (TIA), and cerebral infarction without residual deficits; Z98.52 Vasectomy status; Z87.891 Personal history of nicotine dependence; Z79.82 Long term (current) use of aspirin; Z79.899 Other long term (current) drug therapy

== ENCOUNTER 2016-11-08 08:27 | Inpatient (IN) | payer OTHER ==
[~2016-11-08] VITALS: Ht 172.7 cm; Wt 133.8 kg
[2016-11-08] VITALS (8 sets, daily range): BP systolic 132–160; BP diastolic 73–83; PULSE 63–85; TEMP 36.4–37.1; O2SAT 92–98; Ht 172.7 cm; Wt 133.8 kg
[~2016-11-08 08:27] MED LIST changes: +ACET-1325 PO; -ASPEC81 PO; +ASPI81TA28 PO; -DMX250 PO; +LISI-461 PO; -LSN10 PO; +METO50TA16 PO; -METO50TA17 PO
[2016-11-08] MEDS ORDERED: METHYLPREDNISOLONE 125 MG VIAL IV STA (08:42)
[2016-11-08] MEDS ORDERED: ALBUT/IPRATROP 3MG/0.5MG NEB 3 ML VIAL INH ONE (08:45)
[2016-11-08 08:51] LABS: BASO % 0.1 %; BASO ABS # 0.01 K/uL (0-0.2); COMPLETE YES; EOS % 0.7 %; HEMATOCRIT 42.5 % (42-52); IG% 0.3 %; LYMPH % 10.9 %; LYMPH ABS # 1.11 K/uL (1.2-3.4); MEAN CORPUSCULAR HEMOGLOBIN 31.2 pg (25-34); MEAN CORPUSCULAR HGB CONC 29.4 g/dl (32-36); MEAN PLATELET VOLUME 10.6 fL (7.4-10.4); MONO % 7.1 %; NEUT % 80.9 %; PLATELET COUNT 258 K/uL (130-400); RED BLOOD COUNT 4.01 M/uL (4.7-6.1); WHITE BLOOD COUNT 10.22 K/uL (4.8-10.8)
--- NOTE | 2016-11-08 09:08 | DIAGNOSTIC IMAGING REPORT ---
CHEST ONE VIEW PORTABLE CLINICAL HISTORY: EVALUATE RESPIRATORY DISTRESS. DYSPNEA dyspnea COMPARISON STUDY: 11/07/2016 FINDINGS: Mild increase in prominence of pulmonary vasculature. Mild increase in cardiac size. Diaphragms are smooth. Costophrenic angles are sharp. IMPRESSION: Developing congestive failure Electronically signed by: Ward Proctor M.D. 11/08/2016 9:07 AM Dictated Date/Time: 11/08/2016 9:06 AM
[2016-11-08 09:13] LABS: ISTAT ARTERIAL BLOOD GAS HCO3 38 meq/L (19-24); ISTAT ARTERIAL BLOOD GAS PCO2 110 mmHg (35-46); ISTAT ARTERIAL BLOOD GAS PO2 72 mmHg (80-95); ISTAT ARTERIAL BLOOD GAS pH 7.15 (7.35-7.45); ISTAT CARBON DIOXIDE > 40 mEq/l (24-31)
[2016-11-08 09:15] LABS: BLOOD UREA NITROGEN 33 mg/dl (7-18); GLUCOSE 116 mg/dl (70-99)
[2016-11-08 09:16] LABS: ALT/SGPT 38 U/L (12-78); BUN/CREATININE RATIO 29.7 (10-20); CALCIUM 8.7 mg/dl (8.5-10.1); CARBON DIOXIDE 40 mmol/L (21-32); CHLORIDE 100 mmol/L (98-107); POTASSIUM 4.1 mmol/L (3.5-5.1); SODIUM 144 mmol/L (136-145)
[2016-11-08 09:20] LABS: ALKALINE PHOSPHATASE 91 U/L (45-117); AST/SGOT 21 U/L (15-37); CKMB/CK RATIO 2.2 (0-3.0)
[2016-11-08 10:30] LABS: ARTERIAL BLD GAS O2 SATURATION 93.9 % (90-95); ARTERIAL BLOOD GAS BASE EXCESS 9.2 mEq/L (-9-1.8); ARTERIAL BLOOD GAS HCO3 39 mmol/L (19-24); ARTERIAL BLOOD GAS PO2 77 mm/Hg (80-95); ARTERIAL BLOOD GAS pH 7.27 (7.35-7.45)
[2016-11-08 10:33] LABS: ALLEN TEST POS (POS); O2 ADMINISTRATION 40%
--- NOTE | 2016-11-08 11:01 | DIAGNOSTIC IMAGING REPORT ---
HEAD CT NONCONTRAST CT DOSE: 884.08 mGy.cm HISTORY: Mental status change Altered mental status TECHNIQUE: Multiaxial CT images of the head were performed without the use of intravenous contrast. Comparison: 08/18/2013 Findings: The paranasal sinuses and mastoid air cells are clear. The calvarium and skull base are intact. There is no mass, hematoma, midline shift, acute infarct. White matter hypodensity is nonspecific but suggestive of microvascular ischemic change. The ventricles and sulci demonstrate mild age-related involutional changes. Small right basal ganglia infarct unchanged from the prior study. No evidence for new or interval process. Impression: Chronic and age-related change. No acute intracranial abnormality. No change from the prior study. Electronically signed by: Ward Proctor M.D. 11/08/2016 11:00 AM Dictated Date/Time: 11/08/2016 10:56 AM
[2016-11-08] MEDS ORDERED: SENN-65 PO (11:09)
[2016-11-08] MEDS ORDERED: PANT1TAB48 PO (11:09)
[2016-11-08] MEDS ORDERED: ACET-1256 PO (11:12)
[2016-11-08] MEDS ORDERED: MOML PO (11:12)
[2016-11-08] MEDS ORDERED: SODI1ENE PR (11:12)
[2016-11-08] MEDS ORDERED: LIDO2SOL19 PO (11:12)
[2016-11-08] MEDS ORDERED: POLY335019 PO (11:12)
[2016-11-08] MEDS ORDERED: BISA1SUP4 PR (11:12)
[2016-11-08 11:41] LABS: ALLEN TEST POS (POS); ARTERIAL BLD GAS O2 SATURATION 91.4 % (90-95); ARTERIAL BLOOD GAS BASE EXCESS 9.5 mEq/L (-9-1.8); ARTERIAL BLOOD GAS HCO3 38 mmol/L (19-24); ARTERIAL BLOOD GAS PO2 60 mm/Hg (80-95); ARTERIAL BLOOD GAS pH 7.34 (7.35-7.45); O2 ADMINISTRATION 40%
[2016-11-08] MEDS ORDERED: ONDANSETRON INJ 2 MG/ML 2 ML VIAL IV PRN (12:00)
[2016-11-08] MEDS ORDERED: ALUMINUM/MAGNESIUM/SIMETH (MAALOX MAX) 30 ML UDC PO PRN (12:00)
[2016-11-08] MEDS ORDERED: ALBUT/IPRATROP 3MG/0.5MG NEB 3 ML VIAL INH PRN (12:00)
[2016-11-08] MEDS ORDERED: MAGNESIUM HYDROXIDE SUSP 30 ML UDC PO PRN (12:00)
[2016-11-08] MEDS ORDERED: ACETAMINOPHEN 325 MG TAB PO PRN (12:00)
--- NOTE | 2016-11-08 12:30 | History and Physical ---
History & Physical Date & Time of Service: Nov 08, 2016 at 12:09 Chief Complaint: AMS Primary Care Physician: Andie Peace C.R.N.P History of Present Illness Source: hospital records, other (ER physician) This patient is a 76-year-old male with a history of obstructive sleep apnea noncompliant with his CPAP machine that presents to the emergency department from [facility] with complaints of altered mental status. No history is obtainable from the patient. He reportedly was difficult to arouse today. The patient was admitted to the hospital and just discharged on 11/01 with acute diastolic heart failure. During that admission, the patient had nocturnal oximetry performed. He failed. It was recommended that he wear a CPAP at night. The patient has refused. The patient returned to the emergency department on 11/07, yesterday. The main complaint was weakness. He had come from home. The ER physician was able to get the patient to [facility] yesterday for rehabilitation. He obviously declined overnight. It is unknown whether he was compliant with his CPAP machine last night. Workup in the emergency department is significant for acidosis with a pH of 7.15. CO2 elevated at 110. Bicarbonates 38. The patient was put on BiPAP. Another ABG was performed and improved. CT the head was negative for acute changes. Chest x-ray was consistent with mild congestive change. Past Medical/Surgical History Medical Problems: (1) Cancer of prostate Status: Resolved (2) CHF (congestive heart failure) Status: Chronic (3) COPD (chronic obstructive pulmonary disease) Status: Chronic (4) DVT (deep venous thrombosis) Status: Resolved (5) Heart disease Status: Chronic (6) HTN (hypertension) Status: Chronic (7) Hypercholesteremia Status: Chronic (8) Myocardial infarct Status: Resolved (9) TIA (transient ischemic attack) Status: Resolved Obstructive sleep apnea Noncompliance Surgical Problems: (1) History of appendectomy Status: Resolved (2) Hx of tonsillectomy Status: Resolved (3) Hx of vasectomy Status: Resolved Family History Patient reports no known family medical history. Unable to obtain due to mental status Social History Smoking Status: Unknown if Ever Smoked Drug Use: none Marital Status: Housing status: other ([facility]) Occupational Status: retired Immunizations History of Influenza Vaccine: Unknown Influenza Vaccine Date: Apr 20, 2013 History of Tetanus Vaccine?: Unknown Tetanus Immunization Date: Aug 22, 2010 History of Pneumococcal: Unknown Pneumococcal Date: Jun 22, 2011 History of Hepatitis B Vaccine: Unknown Multi-Drug Resistant Organisms History of MDRO: No Allergies Coded Allergies: No Known Allergies (Verified , 11/07/16) Home Medications Scheduled Acetazolamide (Acetazolamide), 250 MG PO DAILY Calcium Carbonate-Vitamin D (Calcium 600 + D), 1 TABLET PO DAILY Clopidogrel (Plavix), 75 MG PO DAILY Docusate Sodium (Docusate Sodium), 100 MG PO BID Furosemide (Lasix), 80 MG PO BID Hydralazine Hcl (Apresoline), 25 MG PO BID Lidocaine Hcl (Mouth-Throat) (Lidocaine Viscous), 15 ML PO UD Lisinopril (Zestril), 10 MG PO DAILY Metoprolol Tartrate (Lopressor) (Lopressor), 50 MG PO BID Multivitamin (Multivitamin), 1 TABLET PO DAILY Pantoprazole (Protonix), 40 MG PO DAILY Senna/Docusate Sod (Senokot S), 1 TAB PO DAILY@1200 Simvastatin (Zocor), 40 MG PO QPM Terazosin (Hytrin), 5 MG PO HS Scheduled PRN Acetaminophen (Tylenol), 500 MG PO Q4H PRN for Fever Bisacodyl (Bisacodyl Laxative), 1 EA MI DAILY PRN for Constipation Ipratropium-Albuterol (Duoneb), 1 TREATMENT INH QID PRN for SOB/Wheezing Magnesium Hydroxide (Milk Of Magnesia), 30 ML PO DAILY PRN for Constipation Nitroglycerin (Nitrostat), 0.4 MG UT UD PRN for Chest Pain Polyethylene Glycol 3350 (Miralax), 17 GM PO DAILY PRN for Constipation Sodium Phosphates (Fleet Enema Six Pack), 1 EA MI DAILY PRN for Constipation Review of Systems Unable to obtain review of systems Physical Exam Vital Signs Date Time Temp Pulse Resp B/P Pulse Ox O2 Delivery O2 Flow Rate FiO2 11/08/16 11:45 62 26 130/41 93 BiPAP 11/08/16 11:01 73 24 134/78 94 BiPAP 40 11/08/16 10:27 65 24 110/42 94 BiPAP 40 11/08/16 09:48 85 24 96 BiPAP/CPAP 40 11/08/16 09:48 71 26 101/49 96 BiPAP 21 11/08/16 09:46 85 96 40 11/08/16 09:28 72 28 106/46 95 BiPAP 11/08/16 08:56 73 28 125/61 96 BiPAP 11/08/16 08:40 97 Nasal Cannula 4.0 11/08/16 08:40 11/08/16 08:33 79 11/08/16 08:31 97 Nasal Cannula 4.0 11/08/16 08:30 36.4 82 32 140/51 88 Room Air General Appearance: + mild distress, + pertinent finding (arousable to loud verbal stimuli. Answers some questions.) Head: normocephalic Eyes: PERRL Neck: + pertinent finding (morbid obesity noted. No JVD noted.) Respiratory/Chest: lungs clear, + pertinent finding (on BiPAP settings 18/8 with an FiO2 of 40%) Cardiovascular: regular rate, rhythm Abdomen/GI: normal bowel sounds, non tender, soft Extremities/Musculoskelatal: no calf tenderness, no pedal edema Neurologic/Psych: + pertinent finding (arousable to loud verbal stimuli. Answers some questions appropriately. Does not follow commands.) Skin: warm/dry Diagnostics Laboratory Results Results Past 24 Hours Test 11/08/16 08:00 11/08/16 08:51 11/08/16 08:58 11/08/16 10:10 Range/Units White Blood Count 10.22 4.8-10.8 K/uL Red Blood Count 4.01 4.7-6.1 M/uL Hemoglobin 12.5 14.0-18.0 g/dL Hematocrit 42.5 42-52 % Mean Corpuscular Volume 106.0 80-100 fL Mean Corpuscular Hemoglobin 31.2 25-34 pg Mean Corpuscular Hemoglobin Concent 29.4 32-36 g/dl Platelet Count 258 130-400 K/uL Mean Platelet Volume 10.6 7.4-10.4 fL Neutrophils (%) (Auto) 80.9 % Lymphocytes (%) (Auto) 10.9 % Monocytes (%) (Auto) 7.1 % Eosinophils (%) (Auto) 0.7 % Basophils (%) (Auto) 0.1 % Neutrophils # (Auto) 8.27 1.4-6.5 K/uL Lymphocytes # (Auto) 1.11 1.2-3.4 K/uL Monocytes # (Auto) 0.73 0.11-0.59 K/uL Eosinophils # (Auto) 0.07 0-0.5 K/uL Basophils # (Auto) 0.01 0-0.2 K/uL RDW Standard Deviation 55.8 36.4-46.3 fL RDW Coefficient of Variation 14.3 11.5-14.5 % Immature Granulocyte % (Auto) 0.3 % Immature Granulocyte # (Auto) 0.03 0.00-0.02 K/uL Sodium Level 144 136-145 mmol/L Potassium Level 4.1 3.5-5.1 mmol/L Chloride Level 100 98-107 mmol/L Carbon Dioxide Level 40 21-32 mmol/L Anion Gap 4.0 3-11 mmol/L Blood Urea Nitrogen 33 7-18 mg/dl Creatinine 1.10 0.60-1.40 mg/dl Estimated GFR () 75.7 Estimated GFR (Non- 65.3 BUN/Creatinine Ratio 29.7 10-20 Random Glucose 116 70-99 mg/dl Calcium Level 8.7 8.5-10.1 mg/dl Total Bilirubin 0.3 0.2-1 mg/dl Aspartate Amino Transf (AST/SGOT) 21 15-37 U/L Alanine Aminotransferase (ALT/SGPT) 38 12-78 U/L Alkaline Phosphatase 91 45-117 U/L Total Creatine Kinase 102 39-308 U/L Creatine Kinase MB 2.2 0.5-3.6 ng/ml Creatine Kinase MB Ratio 2.2 0-3.0 Troponin I < 0.015 0-0.045 ng/ml Pro-B-Type Natriuretic Peptide 561 0-900 pg/ml Total Protein 6.7 6.4-8.2 gm/dl Albumin 3.3 3.4-5.0 gm/dl Globulin 3.4 2.5-4.0 gm/dl Albumin/Globulin Ratio 1.0 0.9-2 Bedside Lactic Acid Arterial < 0.30 0.36-1.25 mmol/L Bedside Blood Gas pH (LAB) 7.15 7.35-7.45 Bedside Blood Gas pCO2 (LAB) 110 35-46 mmHg Bedside Blood Gas pO2 (LAB) 72 80-95 mmHg Bedside Blood Gas HCO3 (LAB) 38 19-24 meq/L Bedside Blood Gas Total CO2 > 40 24-31 mEq/l Bedside Blood Gas Base Excess (LAB) 9.0 -9-1.8 meq/L Bedside Blood Gas O2 Saturation 86.0 90-95 % Arterial Blood pH 7.27 7.35-7.45 Arterial Blood Partial Pressure CO2 87 35-46 mmHg Arterial Blood Partial Pressure O2 77 80-95 mm/Hg Arterial Blood HCO3 39 19-24 mmol/L Arterial Blood Oxygen Saturation 93.9 90-95 % Arterial Blood Base Excess 9.2 -9-1.8 mEq/L Arterial Blood Gas Delivery 40% Arun Test POS POS Test 11/08/16 11:20 Range/Units Arterial Blood pH 7.34 7.35-7.45 Arterial Blood Partial Pressure CO2 72 35-46 mmHg Arterial Blood Partial Pressure O2 60 80-95 mm/Hg Arterial Blood HCO3 38 19-24 mmol/L Arterial Blood Oxygen Saturation 91.4 90-95 % Arterial Blood Base Excess 9.5 -9-1.8 mEq/L Arterial Blood Gas Delivery 40% Arun Test POS POS Diagnostic Radiology Patient: MELANY HERZOG Address1: [address] [place] [address] Rec: [id number] [facility]: [id number] [facility] Zip: [place] [address] Date: 1940 Sex: M Room/Bed: Ref Phy: Andie Peace C.RJhonyN.P SC: GRAY Zapata Phy: Report #: [id number] Bee Phy: Andie Peace C.RJhonyN.Kita Test: HWO Admit Phy: General Store Manager: MARCELLUS Interpreting Phy: Ward Proctor M.D. Diagnosis: AMS Ordering Phy: Petr Crooks MD Service Date: 11/08/16 Admit Date: 11/08/16 MNE: [id number] CONF: DICTATED BY: Ward Proctor M.D.]] CC: ePtr Crooks MD Maurer, Candace, C.RJhonyNJames Endcc: [~ rep ct add3]] HEAD CT NONCONTRAST CT DOSE: 884.08 mGy.cm HISTORY: Mental status change Altered mental status TECHNIQUE: Multiaxial CT images of the head were performed without the use of intravenous contrast. Comparison: 08/18/2013 Findings: The paranasal sinuses and mastoid air cells are clear. The calvarium and skull base are intact. There is no mass, hematoma, midline shift, acute infarct. White matter hypodensity is nonspecific but suggestive of microvascular ischemic change. The ventricles and sulci demonstrate mild age-related involutional changes. Small right basal ganglia infarct unchanged from the prior study. No evidence for new or interval process. Impression: Chronic and age-related change. No acute intracranial abnormality. No change from the prior study. Electronically signed by: Ward Proctor M.D. Patient: MELANY HERZOG Address1: [address] [place] [address] Rec: [id number] Address2: Acct ID: [id number] [facility] Zip: [place] [address] Date: 1940 Sex: M Room/Bed: Ref Phy: Andie Peace C.R.N.P SC: GRAY Att Phy: Report #: [id number] Bee Phy: Andie Peace C.R.N.P Test: [id number] Admit Phy: General Store Manager: JAZMYN Interpreting Phy: Ward Proctor M.D. Diagnosis: AMS Ordering Phy: Petr Crooks MD Service Date: 11/08/16 Admit Date: 11/08/16 MNE: [id number] CONF: DICTATED BY: Ward Proctor M.D.]] CC: Petr Crooks MD Maurer, Candace CJhonyR.N.P Endcc: [~ rep ct add3]] CHEST ONE VIEW PORTABLE CLINICAL HISTORY: EVALUATE RESPIRATORY DISTRESS. DYSPNEA dyspnea COMPARISON STUDY: 11/07/2016 FINDINGS: Mild increase in prominence of pulmonary vasculature. Mild increase in cardiac size. Diaphragms are smooth. Costophrenic angles are sharp. IMPRESSION: Developing congestive failure Electronically signed by: Ward Proctor M.D. 11/08/2016 9:07 AM Dictated Date/Time: 11/08/2016 9:06 AM The status of this report is Signed. Draft = Not yet reviewed or approved by Radiologist. Signed = Reviewed and approved by Radiologist. <AttendingPhy></AttendingPhy> <FamilyPhy>Andie Peace C.R.N.P</FamilyPhy> < PrimaryPhy>Andie Peace C.R.N.P</PrimaryPhy> <UnitNumber>[id number]</ UnitNumber> <VisitNumber>[id number]</VisitNumber> <PatientName>MELANY HERZOG</PatientName> <DateOfBirth>1940</DateOfBirth> <Location>[facility]</ Location> <ServiceDate>11/08/16</ServiceDate> <MNE>ESINDI</MNE> <OrderingPhy> Petr Crooks MD</OrderingPhy> <OrderingPhyMNE>f rep ord dr navas</ OrderingPhyMNE> <DictatingPhyMNE>f rep dict dr navas</DictatingPhyMNE> <CCListMNE> f rep ct eunicee</CCListMNE> <AdmittingPhyMNE>f pt admit dr navas</AdmittingPhyMNE> < AttendingPhyMNE>f pt attend dr navas</AttendingPhyMNE> <ConsultingPhyMNE>f pt consult dr navas</ConsultingPhyMNE> <FamilyPhyMNE>f pt fam dr navas</FamilyPhyMNE> <OtherPhyMNE>f pt other dr navas</OtherPhyMNE> < PrimaryPhyMNE>f pt prim care dr navas</PrimaryPhyMNE> <ReferringPhyMNE>f pt referring dr navsa</ReferringPhyMNE> EKG Normal sinus rhythm with PACs T-wave flattening noted in the inferior leads 76 bpm Impression Assessment and Plan 76-year-old male sent emergency department from [facility] with complaints of altered mental status. Found to be acidotic and hypercapnic in the emergency department. History of obstructive sleep apnea with noncompliance to CPAP Metabolic encephalopathy secondary to acute on chronic hypercapnic respiratory failure and likely morbid obesity hypoventilation syndrome. Rule out other causes of metabolic encephalopathy -Admit to telemetry -Continue BiPAP -Repeat ABG at 1800 hrs. -Check ABG at 0500 hrs. in the morning while the patient is on BiPAP -Check vitamin B12, TSH -CT head negative -Urinalysis from yesterday is clean Chronic diastolic heart failure -Continue Diamox 250 mg daily, Lasix 80 mg twice daily Coronary artery disease -Continue Plavix 75 mg daily, lisinopril 10 mg daily, metoprolol 50 mg twice daily (this was increased on last admission), simvastatin 80 mg daily GERD -Continue pantoprazole 40 mg daily History of DVT-not currently on anticoagulation History of prostate cancer-stable Obstructive sleep apnea with noncompliance COPD -Duo nebs every 4 hours as needed for wheezing DVT prophylaxis -Lovenox 30 mg subQ daily -TEDS, SCDs CODE STATUS -LEVEL I FULL CODE Level of Care Telemetry Resuscitation Status FULL RESUSCITATION VTE Prophylaxis VTE Risk Assessment Done? Y/N: Yes Risk Level: Moderate Given or contraindicated: Enoxaparin (Lovenox)SQ, T.E.D. Stockings, SCD's Comments I have personally seen and examined the patient, I discussed and formulated the assessment and plan with Mrs Allan 76 years old man presented with lethargy physical exam: lying in bed and in not acute distress. HEENT--PERRL, EOMI, mucous membranes and oropharynx dry. Neck--supple, no JVD or bruits, thyroid normal, trachea midline, no adenopathy. Heart--normal S1 and S2, no extra beats, no murmurs, rubs or gallops. Lungs--clear bilaterally, no respiratory distress, no accessory muscle use. Abdomen--no tenderness, nondistended, no hernias or masses, no organomegaly. Extremities--no cyanosis, clubbing or edema. There are good distal pulses b/l. Dermatologic--normal skin turgor, normal color, warm and dry, no abnormal lymph nodes, no rash. Neurologic--lethargic, responds only to painful stimuli Rheumatologic--normal range of motion, nontender, muscles and joints. Psychiatric--normal affect. ABG was done in ED and he was found to have severe hypercapnic respiratory failure will R/O other causes of change in mental status; check TSH, LFTs check UDS continue BIPAP keep O2 sat betweein 90-93% follow up labs
--- NOTE | 2016-11-08 15:16 | EMERGENCY ROOM VISIT NOTE ---
History Report prepared by Jordana: Patience Tomlin Under the Supervision of: Dr. Petr Crooks M.D. First contact with patient: 08:32 Stated Complaint: AMS History of Present Illness The patient is a 76 year old male who presents to the Emergency Room with complaints of a sudden altered mental status that occurred prior to arrival. Per nursing staff, the patient was evaluated in the hospital yesterday for leg weakness. EMS reports that the patient was discharged to [facility] for further treatment. EMS states that the patient is noncompliant with his c-pap machine at night. EMS reports that the patient was woken up this morning with a room air saturation of 91%. They state that a change in mental status was also noted. Nursing staff notes that the patient has had multiple recent falls. This history is limited secondary to altered mental status. Source of History: EMS, nursing staff History Limited By: AMS Onset: prior to arrival Position: other (global) Quality: other (change in mental status) Timing: other (sudden) Review of Systems The history and ROS are limited secondary to AMS. Past Medical & Surgical Medical Problems: (1) Acute hypercapnic respiratory failure due to obstructive sleep apnea (2) Cancer of prostate (3) CHF (congestive heart failure) (4) COPD (chronic obstructive pulmonary disease) (5) DVT (deep venous thrombosis) (6) Heart disease (7) HTN (hypertension) (8) Hypercholesteremia (9) Myocardial infarct (10) TIA (transient ischemic attack) Surgical Problems: (1) History of appendectomy (2) Hx of tonsillectomy (3) Hx of vasectomy Family History Patient reports no known family medical history. Social History Smoking Status: Former Smoker Alcohol Use: none Drug Use: none Marital Status: Housing Status: lives with family Occupation Status: retired Current/Historical Medications Scheduled Acetazolamide (Acetazolamide), 250 MG PO DAILY Calcium Carbonate-Vitamin D (Calcium 600 + D), 1 TABLET PO DAILY Clopidogrel (Plavix), 75 MG PO DAILY Docusate Sodium (Docusate Sodium), 100 MG PO BID Furosemide (Lasix), 80 MG PO BID Hydralazine Hcl (Apresoline), 25 MG PO BID Lidocaine Hcl (Mouth-Throat) (Lidocaine Viscous), 15 ML PO UD Lisinopril (Zestril), 10 MG PO DAILY Metoprolol Tartrate (Lopressor) (Lopressor), 50 MG PO BID Multivitamin (Multivitamin), 1 TABLET PO DAILY Pantoprazole (Protonix), 40 MG PO DAILY Senna/Docusate Sod (Senokot S), 1 TAB PO DAILY@1200 Simvastatin (Zocor), 40 MG PO QPM Terazosin (Hytrin), 5 MG PO HS Scheduled PRN Acetaminophen (Tylenol), 500 MG PO Q4H PRN for Fever Bisacodyl (Bisacodyl Laxative), 1 EA [place] DAILY PRN for Constipation Ipratropium-Albuterol (Duoneb), 1 TREATMENT INH QID PRN for SOB/Wheezing Magnesium Hydroxide (Milk Of Magnesia), 30 ML PO DAILY PRN for Constipation Nitroglycerin (Nitrostat), 0.4 MG UT UD PRN for Chest Pain Polyethylene Glycol 3350 (Miralax), 17 GM PO DAILY PRN for Constipation Sodium Phosphates (Fleet Enema Six Pack), 1 EA [place] DAILY PRN for Constipation Allergies Coded Allergies: No Known Allergies (Verified , 11/07/16) Physical Exam Vital Signs Date Time Temp Pulse Resp B/P Pulse Ox O2 Delivery O2 Flow Rate FiO2 11/08/16 11:45 62 26 130/41 93 BiPAP 11/08/16 11:01 73 24 134/78 94 BiPAP 40 11/08/16 10:27 65 24 110/42 94 BiPAP 40 11/08/16 09:48 85 24 96 BiPAP/CPAP 40 11/08/16 09:48 71 26 101/49 96 BiPAP 21 11/08/16 09:46 85 96 40 11/08/16 09:28 72 28 106/46 95 BiPAP 11/08/16 08:56 73 28 125/61 96 BiPAP 11/08/16 08:40 97 Nasal Cannula 4.0 11/08/16 08:40 11/08/16 08:33 79 11/08/16 08:31 97 Nasal Cannula 4.0 11/08/16 08:30 36.4 82 32 140/51 88 Room Air Physical Exam GENERAL: Lethargic, arousable to verbal stimuli. Tachypneic. HENT: Normocephalic, atraumatic. Oropharynx unremarkable. EYES: Normal conjunctiva. Sclera non-icteric. NECK: Supple. No nuchal rigidity. FROM. No JVD. RESPIRATORY: Clear to auscultation. CARDIAC: Regular rate, normal rhythm. Extremities warm and well perfused. Pulses equal. ABDOMEN: Soft, non-distended. No tenderness to palpation. No rebound or guarding. No masses. RECTAL: Deferred. MUSCULOSKELETAL: Chest examination reveals no tenderness. No joint edema. LOWER EXTREMITIES: Calves are equal size bilaterally and non-tender. No edema. No discoloration. NEURO: Altered sensorium. No sensory or motor deficits noted. SKIN: No rash or jaundice noted. Medical Decision & Procedures ER Provider Diagnostic Interpretation: X ray results as stated below per my interpretation and radiologist interpretation. Other radiology results as stated below per my review and radiologist interpretation HEAD CT NONCONTRAST CT DOSE: 884.08 mGy.cm HISTORY: Mental status change Altered mental status TECHNIQUE: Multiaxial CT images of the head were performed without the use of intravenous contrast. Comparison: 08/18/2013 Findings: The paranasal sinuses and mastoid air cells are clear. The calvarium and skull base are intact. There is no mass, hematoma, midline shift, acute infarct. White matter hypodensity is nonspecific but suggestive of microvascular ischemic change. The ventricles and sulci demonstrate mild age-related involutional changes. Small right basal ganglia infarct unchanged from the prior study. No evidence for new or interval process. Impression: Chronic and age-related change. No acute intracranial abnormality. No change from the prior study. Electronically signed by: Ward Proctor M.D. 11/08/2016 11:00 AM Dictated Date/Time: 11/08/2016 10:56 AM CHEST ONE VIEW PORTABLE CLINICAL HISTORY: EVALUATE RESPIRATORY DISTRESS. DYSPNEA dyspnea COMPARISON STUDY: 11/07/2016 FINDINGS: Mild increase in prominence of pulmonary vasculature. Mild increase in cardiac size. Diaphragms are smooth. Costophrenic angles are sharp. IMPRESSION: Developing congestive failure Electronically signed by: Ward Proctor M.D. 11/08/2016 9:07 AM Dictated Date/Time: 11/08/2016 9:06 AM Laboratory Results 11/08/16 08:00 Red Blood Count 4.01, Mean Corpuscular Volume 106.0, Mean Corpuscular Hemoglobin 31.2, Mean Corpuscular Hemoglobin Concent 29.4, Mean Platelet Volume 10.6, Neutrophils (%) (Auto) 80.9, Lymphocytes (%) (Auto) 10.9, Monocytes (%) ( Auto) 7.1, Eosinophils (%) (Auto) 0.7, Basophils (%) (Auto) 0.1, Neutrophils # ( Auto) 8.27, Lymphocytes # (Auto) 1.11, Monocytes # (Auto) 0.73, Eosinophils # ( Auto) 0.07, Basophils # (Auto) 0.01 11/08/16 08:00 Test 11/08/16 08:00 11/08/16 08:51 11/08/16 08:58 11/08/16 11:20 White Blood Count 10.22 K/uL (4.8-10.8) Red Blood Count 4.01 M/uL (4.7-6.1) Hemoglobin 12.5 g/dL (14.0-18.0) Hematocrit 42.5 % (42-52) Mean Corpuscular Volume 106.0 fL (80-100) Mean Corpuscular Hemoglobin 31.2 pg (25-34) Mean Corpuscular Hemoglobin Concent 29.4 g/dl (32-36) Platelet Count 258 K/uL (130-400) Mean Platelet Volume 10.6 fL (7.4-10.4) Neutrophils (%) (Auto) 80.9 % Lymphocytes (%) (Auto) 10.9 % Monocytes (%) (Auto) 7.1 % Eosinophils (%) (Auto) 0.7 % Basophils (%) (Auto) 0.1 % Neutrophils # (Auto) 8.27 K/uL (1.4-6.5) Lymphocytes # (Auto) 1.11 K/uL (1.2-3.4) Monocytes # (Auto) 0.73 K/uL (0.11-0.59) Eosinophils # (Auto) 0.07 K/uL (0-0.5) Basophils # (Auto) 0.01 K/uL (0-0.2) RDW Standard Deviation 55.8 fL (36.4-46.3) RDW Coefficient of Variation 14.3 % (11.5-14.5) Immature Granulocyte % (Auto) 0.3 % Immature Granulocyte # (Auto) 0.03 K/uL (0.00-0.02) Anion Gap 4.0 mmol/L (3-11) Estimated GFR () 75.7 Estimated GFR (Non- 65.3 BUN/Creatinine Ratio 29.7 (10-20) Calcium Level 8.7 mg/dl (8.5-10.1) Total Bilirubin 0.3 mg/dl (0.2-1) Aspartate Amino Transf (AST/SGOT) 21 U/L (15-37) Alanine Aminotransferase (ALT/SGPT) 38 U/L (12-78) Alkaline Phosphatase 91 U/L (45-117) Total Creatine Kinase 102 U/L (39-308) Creatine Kinase MB 2.2 ng/ml (0.5-3.6) Creatine Kinase MB Ratio 2.2 (0-3.0) Troponin I < 0.015 ng/ml (0-0.045) Pro-B-Type Natriuretic Peptide 561 pg/ml (0-900) Total Protein 6.7 gm/dl (6.4-8.2) Albumin 3.3 gm/dl (3.4-5.0) Globulin 3.4 gm/dl (2.5-4.0) Albumin/Globulin Ratio 1.0 (0.9-2) Thyroid Stimulating Hormone (TSH) 0.480 uIu/ml (0.300-4.500) Bedside Lactic Acid Arterial < 0.30 mmol/L (0.36-1.25) Bedside Blood Gas pH (LAB) 7.15 (7.35-7.45) Bedside Blood Gas pCO2 (LAB) 110 mmHg (35-46) Bedside Blood Gas pO2 (LAB) 72 mmHg (80-95) Bedside Blood Gas HCO3 (LAB) 38 meq/L (19-24) Bedside Blood Gas Total CO2 > 40 mEq/l (24-31) Bedside Blood Gas Base Excess (LAB) 9.0 meq/L (-9-1.8) Bedside Blood Gas O2 Saturation 86.0 % (90-95) Arterial Blood pH 7.34 (7.35-7.45) Arterial Blood Partial Pressure CO2 72 mmHg (35-46) Arterial Blood Partial Pressure O2 60 mm/Hg (80-95) Arterial Blood HCO3 38 mmol/L (19-24) Arterial Blood Oxygen Saturation 91.4 % (90-95) Arterial Blood Base Excess 9.5 mEq/L (-9-1.8) Arterial Blood Gas Delivery 40% Arun Test POS (POS) Laboratory results reviewed by me Medications Administered Medications (Trade) Dose Ordered Sig/Abhijeet Route Start Time Stop Time Status Last Admin Dose Admin Albuterol/ Ipratropium (Duoneb) 12 ml ONE ONCE INH 11/08/16 08:45 11/08/16 08:46 DC 11/08/16 08:45 12 ML Methylprednisolone Sodium Succinate (Solu-Medrol IV) 125 mg NOW STAT IV 11/08/16 08:42 11/08/16 08:46 DC 11/08/16 09:13 125 MG ECG Indication: altered mental status Rate (beats per minute): 76 Rhythm: sinus rhythm Findings: nonspecific-ST abn, PAC, no acute ischemic change ED Course 0834: The patient was evaluated in room A11B. A complete history and physical exam was performed. I called for respiratory to place the patient on BiPAP. 0840: Respiratory arrived to place the patient on BiPAP. 0842: Ordered Solu-Medrol IV 125 mg IV. 0845: Ordered DuoNeb 12 ml INH. 0900: The patient's lab work revealed severe hypercarbia. 1000: I reevaluated the patient and he is now more awake. 1036: I reevaluated the patient and he is resting comfortably. 1055: I discussed the patients case with Dr. Ramos, [facility]. He will evaluate the patient for further treatment, but would like ICU consulted as well. 1100: I discussed the patients case with Dr. Mosquera, Intensive Care. He is going to come down to see the patient. 1102: I reevaluated the patient and he denies any pain. He is breathing much better with the mask. I discussed the exam findings with him and I discussed the treatment plan. He verbalized complete understanding and agreement. He will be evaluated for further treatment. 1130: The patient's case with discussed with Aida Allan PA-C from the [facility] and Dr. Mosquera who were both down to evaluate the patient. Everyone is in agreement with the treatment plan. 1206: I reevaluated the patient and his CO2 is decreasing. Medical Decision Prior records/ancillary studies reviewed and summarized above. Nursing notes reviewed and agree them. Additional history obtained from EMS. The patient's history was concerning for altered mental status. Differential diagnosis: Etiologies such as hypercarbia, infection, hypoglycemia, electrolyte abnormalities, cardiac sources, intracerebral event, toxicologic, neurologic, as well as others were entertained. Physical examination: As above. The patient was lethargic but arousable. ER treatment provided: IV Lock DuoNeb 1 hour Solu-Medrol BiPAP On reassessment the patient felt better. Diagnostics interpretation by me: ECG: No ischemia The labs revealed an unremarkable CBC and chemistry panel. The patient had normal cardiac markers. ABG was grossly abnormal for a respiratory acidosis and hypercarbia. Repeat ABG revealed improvement of the hypercarbia and acidosis. A third ABG was performed and it shows improvement. He did have some mild hypoxemia Imaging studies: Head CT and Chest x-ray as above Consultation: A consultation was placed with the hospitalist and combustion analyst. The case was discussed and diagnostics were reviewed. The patient was evaluated in the ER for further treatment by both teams. The chart was completed utilizing [employer] Speech voice recognition software. Grammatical errors, random word insertions, pronoun errors, and incomplete sentences are an occasional consequence of this system due to software limitations, ambient noise, and hardware issues. Any formal questions or concerns about the content, text, or information contained within the body of this dictation should be directly addressed to the physician for clarification. Consults Time Called: 1043 Consulting Physician: SUSIE Reyes Returned Call: 1055 I discussed the patients case with SUSIE Reyes. He will evaluate the patient for further treatment, but would like ICU consulted as well. Additional Consults: Time Called: 1057 Consulted Physician: Dr. Mosquera, Intensive Care Returned Call: 1100 Additional Comments: I discussed the patients case with Dr. Mosquera, Intensive Care. He is going to come down to see the patient. Impression Primary Impression: Hypercarbia Additional Impression: Altered mental status Critical Care I have personally spent greater than 30 minutes of critical care time in the direct management of this patient. This includes bedside care, interpretation of diagnostic studies, and testing, discussion with consultants, patient, and other required patient management activities. This 30 minutes is in excess of all separately billable procedures. Scribe Attestation The scribe's documentation has been prepared under my direction and personally reviewed by me in its entirety. I confirm that the note above accurately reflects all work, treatment, procedures, and medical decision making performed by me. Departure Information Dispostion Being Evaluated By Hospitalist Referrals Andie Peace C.R.N.P (PCP) Problem Qualifiers
[2016-11-08] MEDS: FUROSEMIDE 80 MG TAB PO SCH (16:18)
[2016-11-08 16:23] LABS: URINE APPEARANCE CLEAR (CLEAR); URINE BILIRUBIN NEG (NEG); URINE COLOR YELLOW; URINE NITRITE NEG (NEG); URINE SPECIFIC GRAVITY 1.016 (1.000-1.030); UROBILINOGEN NEG (NEG)
[2016-11-08 16:25] LABS: MANUAL MICROSCOPIC REQUIRED? NO; REVIEW REQ? NO
[2016-11-08 16:48] LABS: BENZODIAZEPINE, URINE NEG (NEG); COCAINE,URINE NEG (NEG); PHENCYCLIDINE, URINE NEG (NEG)
[2016-11-08 18:52] LABS: ARTERIAL BLD GAS O2 SATURATION 92.6 % (90-95); ARTERIAL BLOOD GAS BASE EXCESS 10.4 mEq/L (-9-1.8); ARTERIAL BLOOD GAS HCO3 38 mmol/L (19-24); ARTERIAL BLOOD GAS PO2 63 mm/Hg (80-95); ARTERIAL BLOOD GAS pH 7.39 (7.35-7.45)
[2016-11-08 18:53] LABS: ALLEN TEST POS (POS); O2 ADMINISTRATION 40%
[2016-11-08] MEDS: DOCUSATE SODIUM 100 MG CAP PO SCH (20:19)
[2016-11-08] MEDS: METOPROLOL TARTRATE 50 MG TAB PO SCH (20:20)
[2016-11-08] MEDS: SIMVASTATIN 40 MG TAB PO SCH (20:23)
[2016-11-08] MEDS: ENOXAPARIN 30 MG/0.3 ML SYR SC SCH (20:48)
[2016-11-09] VITALS (8 sets, daily range): BP systolic 133–158; BP diastolic 61–67; PULSE 62–86; TEMP 36.4–37.1; O2SAT 90–98
[2016-11-09 07:31] LABS: BASO % 0.1 %; BASO ABS # 0.01 K/uL (0-0.2); COMPLETE YES; EOS % 0.6 %; HEMATOCRIT 39.7 % (42-52); IG% 0.2 %; LYMPH % 8.9 %; LYMPH ABS # 0.87 K/uL (1.2-3.4); MEAN CELL VOLUME 101.5 fL (80-100); MEAN CORPUSCULAR HEMOGLOBIN 29.9 pg (25-34); MEAN CORPUSCULAR HGB CONC 29.5 g/dl (32-36); MEAN PLATELET VOLUME 10.7 fL (7.4-10.4); MONO % 8.8 %; NEUT % 81.4 %; PLATELET COUNT 233 K/uL (130-400); RED BLOOD COUNT 3.91 M/uL (4.7-6.1); WHITE BLOOD COUNT 9.76 K/uL (4.8-10.8)
[2016-11-09 07:36] LABS: ARTERIAL BLD GAS O2 SATURATION 79.7 % (90-95); ARTERIAL BLOOD GAS BASE EXCESS 12.1 mEq/L (-9-1.8); ARTERIAL BLOOD GAS HCO3 41 mmol/L (19-24); ARTERIAL BLOOD GAS PO2 46 mm/Hg (80-95); ARTERIAL BLOOD GAS pH 7.35 (7.35-7.45)
[2016-11-09 07:39] LABS: ALLEN TEST POS (POS); O2 ADMINISTRATION 40%
[2016-11-09] MEDS: METOPROLOL TARTRATE 50 MG TAB PO SCH ×2 (08:04→21:01)
[2016-11-09] MEDS: DOCUSATE SODIUM 100 MG CAP PO SCH ×2 (08:04→21:00)
[2016-11-09] MEDS: FUROSEMIDE 80 MG TAB PO SCH ×2 (08:04→08:34)
[2016-11-09] MEDS: AcetaZOLAMIDE 250 MG TAB PO SCH ×2 (08:04→08:36)
[2016-11-09] MEDS: PANTOprazole SOD 40 MG TAB PO SCH ×2 (08:05→08:37)
[2016-11-09] MEDS: LISINOPRIL 10 MG TAB PO SCH ×2 (08:05→08:36)
[2016-11-09] MEDS: CLOPIDOGREL BISULFATE 75 MG TAB PO SCH ×2 (08:05→08:37)
[2016-11-09 08:21] LABS: BUN/CREATININE RATIO 46.1 (10-20); CALCIUM 8.3 mg/dl (8.5-10.1); CREATININE 0.75 mg/dl (0.60-1.40); MAGNESIUM 2.7 mg/dl (1.8-2.4)
[2016-11-09] MEDS: SIMVASTATIN 40 MG TAB PO SCH (08:33)
--- NOTE | 2016-11-09 16:00 | Progress Note ---
Subjective Date of Service: Nov 09, 2016. Subjective Pt evaluation today including: conversation w/ patient, physical exam, chart review, lab review, review of inpatient medication list Problem List Medical Problems: (1) Altered mental status Status: Acute (2) Generalized weakness Status: Acute (3) Hypercarbia Status: Acute Review of Systems Constitutional: No chills, No fatigue, No fever, No problem reported, No see HPI, No sweats, No weakness, No weight loss Eyes: No diplopia, No discharge, No eye pain, No problem reported, No redness, No see HPI, No worsening of vision ENT: No dental problems, No hearing loss, No nasal symptoms, No problem reported, No see HPI, No sore throat, No tinnitus, No trouble swallowing, No unusual epistaxis Respiratory: No cough, No dyspnea at rest, No dyspnea on exertion, No hemoptysis, No problem reported, No see HPI, No shortness of breath, No sputum, No wheezing Cardiac: No PND, No chest pain, No claudication, No edema, No orthopnea, No palpitations, No problem reported, No see HPI Abdomen: No GI bleeding, No constipation, No diarrhea, No nausea, No pain, No problem reported, No see HPI, No vomiting Musculoskeletal: No calf pain, No joint pain, No muscle pain, No problem reported, No see HPI, No swelling Male : No dysuria, No hematuria, No incontinence, No nocturia more than once/ night, No problem reported, No see HPI, No sexual dysfunction, No slowing stream , No urinary frequency Neurologic: No balance problems, No memory loss, No numbness/tingling, No paralysis, No problem reported, No see HPI, No vertigo, No weakness Psychiatric: No anhedonism, No anxiety, No depression symptoms, No insomnia, No problem reported, No see HPI, No substance abuse Heme: No abnormal bleeding/bruising, No clotting problems, No night sweats, No problem reported, No see HPI, No swollen lymph nodes Endo: No excessive thirst, No excessive urination, No fatigue, No problem reported, No see HPI Skin: No bleeding, No color change, No itch, No new/changing skin lesions, No problem reported, No rash, No see HPI Medications Current Inpatient Medications Medications (Trade) Dose Ordered Sig/Abhijeet Route Start Time Stop Time Status Last Admin Dose Admin Enoxaparin Sodium (Lovenox Inj) 30 mg Q24H SC 11/08/16 21:00 12/08/16 20:59 11/08/16 20:48 30 MG Acetaminophen (Tylenol Tab) 650 mg Q4H PRN PO 11/08/16 12:00 12/08/16 11:59 Al Hydrox/Mg Hydrox/Simethicone (Maalox Max Susp) 15 ml Q4H PRN PO 11/08/16 12:00 12/08/16 11:59 Ondansetron HCl (Zofran Inj) 4 mg Q6H PRN IV 11/08/16 12:00 12/08/16 11:59 Acetazolamide (Diamox Tab) 250 mg DAILY PO 11/09/16 09:00 12/09/16 08:59 11/09/16 08:36 250 MG Clopidogrel Bisulfate (plAVix TAB) 75 mg DAILY PO 11/09/16 09:00 12/09/16 08:59 11/09/16 08:37 75 MG Docusate Sodium (coLACE CAP) 100 mg BID PO 11/08/16 21:00 12/08/16 20:59 Furosemide (Lasix Tab) 80 mg BID17 PO 11/08/16 17:00 12/08/16 16:59 11/09/16 08:34 80 MG Hydralazine HCl (Apresoline Tab) 25 mg BID PO 11/08/16 21:00 12/08/16 20:59 11/09/16 08:32 25 MG Lisinopril (Zestril Tab) 10 mg DAILY PO 11/09/16 09:00 12/09/16 08:59 11/09/16 08:36 10 MG Magnesium Hydroxide (Milk Of Magnesia Susp) 30 ml DAILY PRN PO 11/08/16 12:00 12/08/16 11:59 Metoprolol Tartrate (Lopressor Tab) 50 mg BID PO 11/08/16 21:00 12/08/16 20:59 Pantoprazole Sodium (Protonix Tab) 40 mg DAILY PO 11/09/16 09:00 12/09/16 08:59 11/09/16 08:37 40 MG Simvastatin (Zocor Tab) 40 mg PM PO 11/08/16 21:00 12/08/16 20:59 11/09/16 08:33 40 MG Terazosin HCl (Hytrin Cap) 5 mg HS PO 11/08/16 21:00 12/08/16 20:59 Albuterol/ Ipratropium (Duoneb) 3 ml Q4 PRN INH 11/08/16 12:00 12/08/16 11:59 Objective Vital Signs Date Time Temp Pulse Resp B/P Pulse Ox O2 Delivery O2 Flow Rate FiO2 11/09/16 15:38 Nasal Cannula 11/09/16 15:34 36.4 77 22 158/62 95 Nasal Cannula 3.0 11/09/16 12:39 Nasal Cannula 11/09/16 12:14 36.7 77 19 143/61 94 Nasal Cannula 3.0 11/09/16 08:00 BiPAP 11/09/16 07:48 36.4 75 22 133/67 98 BiPAP 11/09/16 04:18 36.8 66 18 149/65 98 11/09/16 04:00 BiPAP 11/09/16 02:00 62 94 40 11/09/16 00:05 37.0 63 18 156/65 91 11/09/16 00:01 BiPAP 11/08/16 20:00 94 BiPAP 11/08/16 19:46 79 97 40 11/08/16 19:29 37.1 84 20 132/75 97 BiPAP 11/08/16 16:00 96 BiPAP Physical Exam General Appearance: WD/WN, no apparent distress Eyes: normal inspection, EOMI ENT: normal ENT inspection, hearing grossly normal, pharynx normal Neck: supple Respiratory/Chest: chest non-tender, lungs clear, normal breath sounds, no respiratory distress, no accessory muscle use Cardiovascular: regular rate, rhythm, no edema, no gallop, no JVD, no murmur Abdomen: normal bowel sounds, non tender, soft, no organomegaly Extremities: normal range of motion, non-tender, normal inspection, no pedal edema Neurologic/Psychiatric: telephone services sales representative II-XII nml as tested, no motor/sensory deficits, alert, normal mood/affect, oriented x 3 Skin: normal color, warm/dry, no rash Laboratory Results Last 24 Hours Test 11/08/16 16:10 11/08/16 18:27 11/09/16 07:22 Urine Color YELLOW Urine Appearance CLEAR Urine pH 5.0 Urine Specific [place] 1.016 Urine Protein NEG Urine Glucose (UA) NEG Urine Ketones TRACE Urine Occult Blood NEG Urine Nitrite NEG Urine Bilirubin NEG Urine Urobilinogen NEG Urine Leukocyte Esterase NEG Urine Opiates Screen NEG Urine Methadone, Qualitative NEG Urine Barbiturates NEG Urine Phencyclidine (PCP) Level NEG Ur Amphetamine/Methamphetamine NEG MDMA (Ecstasy) Screen NEG Urine Benzodiazepines Screen NEG Urine Cocaine Metabolite NEG Urine Marijuana (THC) NEG Arterial Blood pH 7.39 7.35 Arterial Blood Partial Pressure CO2 64 mmHg 75 mmHg Arterial Blood Partial Pressure O2 63 mm/Hg 46 mm/Hg Arterial Blood HCO3 38 mmol/L 41 mmol/L Arterial Blood Oxygen Saturation 92.6 % 79.7 % Arterial Blood Base Excess 10.4 mEq/L 12.1 mEq/L Arterial Blood Gas Delivery 40% 40% Arun Test POS POS White Blood Count 9.76 K/uL Red Blood Count 3.91 M/uL Hemoglobin 11.7 g/dL Hematocrit 39.7 % Mean Corpuscular Volume 101.5 fL Mean Corpuscular Hemoglobin 29.9 pg Mean Corpuscular Hemoglobin Concent 29.5 g/dl Platelet Count 233 K/uL Mean Platelet Volume 10.7 fL Neutrophils (%) (Auto) 81.4 % Lymphocytes (%) (Auto) 8.9 % Monocytes (%) (Auto) 8.8 % Eosinophils (%) (Auto) 0.6 % Basophils (%) (Auto) 0.1 % Neutrophils # (Auto) 7.94 K/uL Lymphocytes # (Auto) 0.87 K/uL Monocytes # (Auto) 0.86 K/uL Eosinophils # (Auto) 0.06 K/uL Basophils # (Auto) 0.01 K/uL RDW Standard Deviation 53.3 fL RDW Coefficient of Variation 14.4 % Immature Granulocyte % (Auto) 0.2 % Immature Granulocyte # (Auto) 0.02 K/uL Sodium Level 146 mmol/L Potassium Level 4.0 mmol/L Chloride Level 104 mmol/L Carbon Dioxide Level 39 mmol/L Anion Gap 3.0 mmol/L Blood Urea Nitrogen 35 mg/dl Creatinine 0.75 mg/dl Est Creatinine Clear Calc Drug Dose 115.3 ml/min Estimated GFR () 104.0 Estimated GFR (Non- 89.7 BUN/Creatinine Ratio 46.1 Random Glucose 95 mg/dl Calcium Level 8.3 mg/dl Magnesium Level 2.7 mg/dl Assessment and Plan 76-year-old male sent emergency department from [facility] with complaints of altered mental status. Found to be acidotic and hypercapnic in the emergency department. History of obstructive sleep apnea with noncompliance to CPAP Metabolic encephalopathy secondary to acute on chronic hypercapnic respiratory failure and likely obesity hypoventilation syndrome. patient is a chronic retainer PCO2 on admission is 110 after being on BIPAP over night his PCO2 improved to 75 which appears to be his baseline as PH returned to normal Continue BiPAP mental status improved normal vitamin B12, TSH normal CT head negative Urinalysis from yesterday is clean UDS is negative Chronic diastolic heart failure -Continue Diamox 250 mg daily, Lasix 80 mg twice daily -monitor renal function and electrolytes Coronary artery disease -Continue Plavix 75 mg daily, lisinopril 10 mg daily, metoprolol 50 mg twice daily (this was increased on last admission), simvastatin 80 mg daily GERD -Continue pantoprazole 40 mg daily History of DVT-not currently on anticoagulation History of prostate cancer-stable Obstructive sleep apnea with noncompliance instructed to use his CPAP COPD -Duo nebs every 4 hours as needed for wheezing
[2016-11-09] MEDS: ENOXAPARIN 30 MG/0.3 ML SYR SC SCH (21:01)
[2016-11-10] VITALS (8 sets, daily range): BP systolic 104–137; BP diastolic 57–83; PULSE 64–87; TEMP 36.3–37; O2SAT 91–96
[2016-11-10 06:13] LABS: BASO % 0.4 %; BASO ABS # 0.03 K/uL (0-0.2); COMPLETE YES; EOS % 2.7 %; HEMATOCRIT 39.4 % (42-52); IG% 0.1 %; LYMPH % 16.8 %; LYMPH ABS # 1.25 K/uL (1.2-3.4); MEAN CELL VOLUME 104.8 fL (80-100); MEAN CORPUSCULAR HEMOGLOBIN 31.1 pg (25-34); MEAN CORPUSCULAR HGB CONC 29.7 g/dl (32-36); MEAN PLATELET VOLUME 10.8 fL (7.4-10.4); MONO % 10.2 %; NEUT % 69.8 %; PLATELET COUNT 211 K/uL (130-400); RED BLOOD COUNT 3.76 M/uL (4.7-6.1); WHITE BLOOD COUNT 7.42 K/uL (4.8-10.8)
[2016-11-10 06:44] LABS: BUN/CREATININE RATIO 39.4 (10-20); CALCIUM 8.1 mg/dl (8.5-10.1); CREATININE 0.91 mg/dl (0.60-1.40); MAGNESIUM 2.8 mg/dl (1.8-2.4); POTASSIUM 3.9 mmol/L (3.5-5.1)
[2016-11-10 06:48] LABS: ALB/GLOB RATIO 0.8 (0.9-2); PHOSPHORUS 2.9 mg/dl (2.5-4.9)
[2016-11-10] MEDS: FUROSEMIDE 80 MG TAB PO SCH ×2 (07:57→16:11)
[2016-11-10] MEDS: DOCUSATE SODIUM 100 MG CAP PO SCH (07:57)
[2016-11-10] MEDS: CLOPIDOGREL BISULFATE 75 MG TAB PO SCH (07:57)
[2016-11-10] MEDS: PANTOprazole SOD 40 MG TAB PO SCH (07:58)
[2016-11-10] MEDS: METOPROLOL TARTRATE 50 MG TAB PO SCH ×2 (07:58→20:25)
[2016-11-10] MEDS: LISINOPRIL 10 MG TAB PO SCH (07:58)
[2016-11-10] MEDS: AcetaZOLAMIDE 250 MG TAB PO SCH (07:58)
--- NOTE | 2016-11-10 10:44 | DIAGNOSTIC IMAGING REPORT ---
CHEST ONE VIEW PORTABLE CLINICAL HISTORY: Shortness of breath. COMPARISON STUDY: Chest radiograph November 08, 2016. FINDINGS: This study is compromised by portable technique with suboptimal penetration. Multiple old right rib fractures are present. There is no pneumothorax. There are small bilateral pleural effusions. There is probably vascular congestion. Bibasilar opacities are present. IMPRESSION: 1. Persistent bibasilar opacities which could reflect pneumonia or atelectasis. 2. Pulmonary vascular congestion. 3. Small bilateral pleural effusions. Electronically signed by: Rafy Flowers M.D. 11/10/2016 10:43 AM Dictated Date/Time: 11/10/2016 10:41 AM
[2016-11-10] MEDS: METHYLPREDNISOLONE IV 40 MG in SYRINGE 0 ML IV SCH ×2 (14:02→20:25)
--- NOTE | 2016-11-10 15:30 | Progress Note ---
Subjective Date of Service: Nov 10, 2016. Subjective Pt evaluation today including: conversation w/ patient, physical exam, chart review, lab review, review of inpatient medication list Problem List Medical Problems: (1) Altered mental status Status: Acute (2) Generalized weakness Status: Acute (3) Hypercarbia Status: Acute Review of Systems Constitutional: No chills, No fatigue, No fever, No problem reported, No see HPI, No sweats, No weakness, No weight loss Eyes: + discharge, No diplopia, No eye pain, No problem reported, No redness, No see HPI, No worsening of vision ENT: No dental problems, No hearing loss, No nasal symptoms, No problem reported, No see HPI, No sore throat, No tinnitus, No trouble swallowing, No unusual epistaxis Respiratory: + dyspnea at rest, + shortness of breath, No cough, No dyspnea on exertion, No hemoptysis, No problem reported, No see HPI, No sputum, No wheezing Cardiac: No PND, No chest pain, No claudication, No edema, No orthopnea, No palpitations, No problem reported, No see HPI Abdomen: No GI bleeding, No constipation, No diarrhea, No nausea, No pain, No problem reported, No see HPI, No vomiting Musculoskeletal: No calf pain, No joint pain, No muscle pain, No problem reported, No see HPI, No swelling Male : No dysuria, No hematuria, No incontinence, No nocturia more than once/ night, No problem reported, No see HPI, No sexual dysfunction, No slowing stream , No urinary frequency Neurologic: No balance problems, No memory loss, No numbness/tingling, No paralysis, No problem reported, No see HPI, No vertigo, No weakness Psychiatric: No anhedonism, No anxiety, No depression symptoms, No insomnia, No problem reported, No see HPI, No substance abuse Heme: No abnormal bleeding/bruising, No clotting problems, No night sweats, No problem reported, No see HPI, No swollen lymph nodes Endo: No excessive thirst, No excessive urination, No fatigue, No problem reported, No see HPI Skin: No bleeding, No color change, No itch, No new/changing skin lesions, No problem reported, No rash, No see HPI Medications Current Inpatient Medications Medications (Trade) Dose Ordered Sig/Abhijeet Route Start Time Stop Time Status Last Admin Dose Admin Enoxaparin Sodium (Lovenox Inj) 30 mg Q24H SC 11/08/16 21:00 12/08/16 20:59 11/09/16 21:01 30 MG Acetaminophen (Tylenol Tab) 650 mg Q4H PRN PO 11/08/16 12:00 12/08/16 11:59 Al Hydrox/Mg Hydrox/Simethicone (Maalox Max Susp) 15 ml Q4H PRN PO 11/08/16 12:00 12/08/16 11:59 Ondansetron HCl (Zofran Inj) 4 mg Q6H PRN IV 11/08/16 12:00 12/08/16 11:59 Acetazolamide (Diamox Tab) 250 mg DAILY PO 11/09/16 09:00 12/09/16 08:59 11/10/16 07:58 250 MG Clopidogrel Bisulfate (plAVix TAB) 75 mg DAILY PO 11/09/16 09:00 12/09/16 08:59 11/10/16 07:57 75 MG Docusate Sodium (coLACE CAP) 100 mg BID PO 11/08/16 21:00 12/08/16 20:59 11/10/16 07:57 100 MG Furosemide (Lasix Tab) 80 mg BID17 PO 11/08/16 17:00 12/08/16 16:59 11/10/16 07:57 80 MG Hydralazine HCl (Apresoline Tab) 25 mg BID PO 11/08/16 21:00 12/08/16 20:59 11/10/16 07:57 25 MG Lisinopril (Zestril Tab) 10 mg DAILY PO 11/09/16 09:00 12/09/16 08:59 11/10/16 07:58 10 MG Magnesium Hydroxide (Milk Of Magnesia Susp) 30 ml DAILY PRN PO 11/08/16 12:00 12/08/16 11:59 Metoprolol Tartrate (Lopressor Tab) 50 mg BID PO 11/08/16 21:00 12/08/16 20:59 11/10/16 07:58 50 MG Pantoprazole Sodium (Protonix Tab) 40 mg DAILY PO 11/09/16 09:00 12/09/16 08:59 11/10/16 07:58 40 MG Simvastatin (Zocor Tab) 40 mg PM PO 11/08/16 21:00 12/08/16 20:59 11/09/16 08:33 40 MG Terazosin HCl (Hytrin Cap) 5 mg HS PO 11/08/16 21:00 12/08/16 20:59 11/09/16 21:01 5 MG Albuterol/ Ipratropium 3 ml 3 ml Q4 PRN INH 11/08/16 12:00 12/08/16 11:59 Methylprednisolone Sodium Succinate/ Syringe (Solu-Medrol IV/ Syringe) 0.64 ml @ 1.5 mls/min Q8 IV 11/10/16 14:00 12/10/16 13:59 11/10/16 14:02 1.5 MLS/MIN Objective Vital Signs Date Time Temp Pulse Resp B/P Pulse Ox O2 Delivery O2 Flow Rate FiO2 11/10/16 12:00 Nasal Cannula 3.0 BiPAP 11/10/16 11:57 36.5 64 20 104/57 11/10/16 08:03 36.7 65 16 121/64 96 11/10/16 08:00 Nasal Cannula 3.0 BiPAP 11/10/16 04:20 36.8 67 18 113/65 94 11/10/16 04:00 BiPAP 11/10/16 03:00 85 94 40 11/10/16 00:34 37.0 75 18 134/83 95 6.0 11/10/16 00:01 BiPAP 11/09/16 21:58 83 92 40 11/09/16 20:00 Nasal Cannula 11/09/16 19:28 37.1 86 20 153/65 90 Nasal Cannula 3.0 11/09/16 15:38 Nasal Cannula 11/09/16 15:34 36.4 77 22 158/62 95 Nasal Cannula 3.0 Physical Exam General Appearance: no apparent distress Eyes: normal inspection, EOMI ENT: normal ENT inspection, hearing grossly normal, pharynx normal Neck: supple, no adenopathy, thyroid normal Respiratory/Chest: chest non-tender, lungs clear, normal breath sounds, no respiratory distress Cardiovascular: regular rate, rhythm, no edema, no gallop, no JVD, no murmur Abdomen: normal bowel sounds, non tender, soft, no organomegaly Extremities: normal range of motion, non-tender, normal inspection 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, no motor/sensory deficits, alert, normal mood/affect, oriented x 3 Skin: normal color, warm/dry, no rash Laboratory Results Last 24 Hours Test 11/10/16 05:55 White Blood Count 7.42 K/uL Red Blood Count 3.76 M/uL Hemoglobin 11.7 g/dL Hematocrit 39.4 % Mean Corpuscular Volume 104.8 fL Mean Corpuscular Hemoglobin 31.1 pg Mean Corpuscular Hemoglobin Concent 29.7 g/dl Platelet Count 211 K/uL Mean Platelet Volume 10.8 fL Neutrophils (%) (Auto) 69.8 % Lymphocytes (%) (Auto) 16.8 % Monocytes (%) (Auto) 10.2 % Eosinophils (%) (Auto) 2.7 % Basophils (%) (Auto) 0.4 % Neutrophils # (Auto) 5.17 K/uL Lymphocytes # (Auto) 1.25 K/uL Monocytes # (Auto) 0.76 K/uL Eosinophils # (Auto) 0.20 K/uL Basophils # (Auto) 0.03 K/uL RDW Standard Deviation 55.3 fL RDW Coefficient of Variation 14.5 % Immature Granulocyte % (Auto) 0.1 % Immature Granulocyte # (Auto) 0.01 K/uL Sodium Level 147 mmol/L Potassium Level 3.9 mmol/L Chloride Level 106 mmol/L Carbon Dioxide Level 39 mmol/L Anion Gap 2.0 mmol/L Blood Urea Nitrogen 36 mg/dl Creatinine 0.91 mg/dl Est Creatinine Clear Calc Drug Dose 93.6 ml/min Estimated GFR () 95.2 Estimated GFR (Non- 82.2 BUN/Creatinine Ratio 39.4 Random Glucose 96 mg/dl Calcium Level 8.1 mg/dl Phosphorus Level 2.9 mg/dl Magnesium Level 2.8 mg/dl Total Bilirubin 0.3 mg/dl Aspartate Amino Transf (AST/SGOT) 12 U/L Alanine Aminotransferase (ALT/SGPT) 31 U/L Alkaline Phosphatase 75 U/L Pro-B-Type Natriuretic Peptide 294 pg/ml Total Protein 5.9 gm/dl Albumin 2.7 gm/dl Globulin 3.2 gm/dl Albumin/Globulin Ratio 0.8 Assessment and Plan 76-year-old male sent emergency department from [facility] with complaints of altered mental status. Found to be acidotic and hypercapnic in the emergency department. History of obstructive sleep apnea with noncompliance to CPAP Metabolic encephalopathy secondary to acute on chronic hypercapnic respiratory failure and likely obesity hypoventilation syndrome. patient is a chronic retainer PCO2 on admission is 110 Continue BiPAP, currently at night time stable on 2 LO2 sat of 91% (keep sat between 90-93%) mental status improved normal vitamin B12, TSH normal CT head negative Urinalysis from yesterday is clean UDS is negative Chronic diastolic heart failure -Continue Diamox 250 mg daily, Lasix 80 mg twice daily -monitor renal function and electrolytes Severe depression after his son , possibly contributing to not using the BIPAP consult psychiatrist Coronary artery disease -Continue Plavix 75 mg daily, lisinopril 10 mg daily, metoprolol 50 mg twice daily (this was increased on last admission), simvastatin 80 mg daily GERD -Continue pantoprazole 40 mg daily History of DVT-not currently on anticoagulation History of prostate cancer-stable Obstructive sleep apnea with noncompliance instructed to use his CPAP COPD -Duo nebs every 4 hours as needed for wheezing
[2016-11-10] MEDS: CIPROFLOXACIN HCL 3.5 GM TUBE OP SCH ×2 (16:10→20:25)
[2016-11-10] MEDS: SIMVASTATIN 40 MG TAB PO SCH (20:24)
[2016-11-10] MEDS: ENOXAPARIN 30 MG/0.3 ML SYR SC SCH (20:26)
[2016-11-11] VITALS (7 sets, daily range): BP systolic 103–150; BP diastolic 49–72; PULSE 70–94; TEMP 36.4–37; O2SAT 91–96
[2016-11-11] MEDS: METHYLPREDNISOLONE IV 40 MG in SYRINGE 0 ML IV SCH ×2 (05:20→13:27)
[2016-11-11 06:21] LABS: COMPLETE YES; EOS % 0.1 %; HEMATOCRIT 41.2 % (42-52); IG% 0.2 %; LYMPH % 6.4 %; LYMPH ABS # 0.59 K/uL (1.2-3.4); MEAN CELL VOLUME 104.6 fL (80-100); MEAN CORPUSCULAR HGB CONC 29.6 g/dl (32-36); MEAN PLATELET VOLUME 11.2 fL (7.4-10.4); MONO % 4.2 %; NEUT % 89.1 %; PLATELET COUNT 236 K/uL (130-400); RED BLOOD COUNT 3.94 M/uL (4.7-6.1); WHITE BLOOD COUNT 9.19 K/uL (4.8-10.8)
[2016-11-11 06:54] LABS: BUN/CREATININE RATIO 40.6 (10-20); CALCIUM 8.6 mg/dl (8.5-10.1); CREATININE 0.78 mg/dl (0.60-1.40); MAGNESIUM 2.6 mg/dl (1.8-2.4); POTASSIUM 4.1 mmol/L (3.5-5.1)
[2016-11-11 07:02] LABS: ALB/GLOB RATIO 0.8 (0.9-2); PHOSPHORUS 3.5 mg/dl (2.5-4.9)
[2016-11-11] MEDS: CIPROFLOXACIN HCL 3.5 GM TUBE OP SCH ×4 (09:51→20:55)
[2016-11-11] MEDS: FUROSEMIDE 80 MG TAB PO SCH ×2 (09:51→16:48)
[2016-11-11] MEDS: METOPROLOL TARTRATE 50 MG TAB PO SCH ×2 (09:51→20:54)
[2016-11-11] MEDS: CLOPIDOGREL BISULFATE 75 MG TAB PO SCH (09:51)
[2016-11-11] MEDS: PANTOprazole SOD 40 MG TAB PO SCH (09:51)
[2016-11-11] MEDS: LISINOPRIL 10 MG TAB PO SCH (09:52)
[2016-11-11] MEDS: SENNA 8.6 MG TAB PO SCH (09:52)
[2016-11-11] MEDS: AcetaZOLAMIDE 250 MG TAB PO SCH (10:15)
--- NOTE | 2016-11-11 16:20 | Progress Note ---
Subjective Date of Service: Nov 11, 2016. Subjective Pt evaluation today including: conversation w/ patient, physical exam, chart review, lab review, review of inpatient medication list Problem List Medical Problems: (1) Altered mental status Status: Acute (2) Generalized weakness Status: Acute (3) Hypercarbia Status: Acute Review of Systems Constitutional: No chills, No fatigue, No fever, No problem reported, No see HPI, No sweats, No weakness, No weight loss Eyes: No diplopia, No discharge, No eye pain, No problem reported, No redness, No see HPI, No worsening of vision ENT: No dental problems, No hearing loss, No nasal symptoms, No problem reported, No see HPI, No sore throat, No tinnitus, No trouble swallowing, No unusual epistaxis Respiratory: No cough, No dyspnea at rest, No dyspnea on exertion, No hemoptysis, No problem reported, No see HPI, No shortness of breath, No sputum, No wheezing Cardiac: No PND, No chest pain, No claudication, No edema, No orthopnea, No palpitations, No problem reported, No see HPI Abdomen: No GI bleeding, No constipation, No diarrhea, No nausea, No pain, No problem reported, No see HPI, No vomiting Musculoskeletal: No calf pain, No joint pain, No muscle pain, No problem reported, No see HPI, No swelling Male : No dysuria, No hematuria, No incontinence, No nocturia more than once/ night, No problem reported, No see HPI, No sexual dysfunction, No slowing stream , No urinary frequency Neurologic: No balance problems, No memory loss, No numbness/tingling, No paralysis, No problem reported, No see HPI, No vertigo, No weakness Psychiatric: No anhedonism, No anxiety, No depression symptoms, No insomnia, No problem reported, No see HPI, No substance abuse Heme: No abnormal bleeding/bruising, No clotting problems, No night sweats, No problem reported, No see HPI, No swollen lymph nodes Endo: No excessive thirst, No excessive urination, No fatigue, No problem reported, No see HPI Skin: No bleeding, No color change, No itch, No new/changing skin lesions, No problem reported, No rash, No see HPI Medications Current Inpatient Medications Medications (Trade) Dose Ordered Sig/Abhijeet Route Start Time Stop Time Status Last Admin Dose Admin Enoxaparin Sodium (Lovenox Inj) 30 mg Q24H SC 11/08/16 21:00 12/08/16 20:59 11/10/16 20:26 30 MG Acetaminophen (Tylenol Tab) 650 mg Q4H PRN PO 11/08/16 12:00 12/08/16 11:59 Al Hydrox/Mg Hydrox/Simethicone (Maalox Max Susp) 15 ml Q4H PRN PO 11/08/16 12:00 12/08/16 11:59 Ondansetron HCl (Zofran Inj) 4 mg Q6H PRN IV 11/08/16 12:00 12/08/16 11:59 Acetazolamide (Diamox Tab) 250 mg DAILY PO 11/09/16 09:00 12/09/16 08:59 11/11/16 10:15 250 MG Clopidogrel Bisulfate (plAVix TAB) 75 mg DAILY PO 11/09/16 09:00 12/09/16 08:59 11/11/16 09:51 75 MG Furosemide (Lasix Tab) 80 mg BID17 PO 11/08/16 17:00 12/08/16 16:59 11/11/16 09:51 80 MG Hydralazine HCl (Apresoline Tab) 25 mg BID PO 11/08/16 21:00 12/08/16 20:59 11/11/16 09:51 25 MG Lisinopril (Zestril Tab) 10 mg DAILY PO 11/09/16 09:00 12/09/16 08:59 11/11/16 09:52 10 MG Magnesium Hydroxide (Milk Of Magnesia Susp) 30 ml DAILY PRN PO 11/08/16 12:00 12/08/16 11:59 Metoprolol Tartrate (Lopressor Tab) 50 mg BID PO 11/08/16 21:00 12/08/16 20:59 11/11/16 09:51 50 MG Pantoprazole Sodium (Protonix Tab) 40 mg DAILY PO 11/09/16 09:00 12/09/16 08:59 11/11/16 09:51 40 MG Simvastatin (Zocor Tab) 40 mg PM PO 11/08/16 21:00 12/08/16 20:59 11/10/16 20:24 40 MG Terazosin HCl (Hytrin Cap) 5 mg HS PO 11/08/16 21:00 12/08/16 20:59 11/10/16 20:23 5 MG Albuterol/ Ipratropium 3 ml 3 ml Q4 PRN INH 11/08/16 12:00 12/08/16 11:59 Methylprednisolone Sodium Succinate/ Syringe (Solu-Medrol IV/ Syringe) 0.64 ml @ 1.5 mls/min Q8 IV 11/10/16 14:00 12/10/16 13:59 11/11/16 13:27 1.5 MLS/MIN Ciprofloxacin HCl (Ciloxan 0.3% Op Oint) 1 appln QID OP 11/10/16 17:00 11/20/16 16:59 11/11/16 13:27 1 APPLN Senna (Senokot Tab) 17.2 mg QAM PO 11/11/16 09:00 12/11/16 08:59 11/11/16 09:52 17.2 MG Objective Vital Signs Date Time Temp Pulse Resp B/P Pulse Ox O2 Delivery O2 Flow Rate FiO2 11/11/16 15:20 36.6 81 20 150/72 96 Nasal Cannula 2.0 11/11/16 12:00 Nasal Cannula 2.0 11/11/16 11:37 36.8 79 16 109/62 95 2.0 11/11/16 08:00 Nasal Cannula 2.0 11/11/16 07:41 36.4 73 18 133/65 96 BiPAP 11/11/16 04:35 37.0 70 18 138/67 91 11/11/16 04:00 BiPAP 11/11/16 00:02 36.5 83 18 129/49 91 11/11/16 00:01 BiPAP 11/10/16 22:44 83 93 40 11/10/16 20:13 36.7 87 20 137/65 91 Nasal Cannula 2.0 11/10/16 20:00 BiPAP Physical Exam General Appearance: no apparent distress Eyes: normal inspection, EOMI ENT: normal ENT inspection, hearing grossly normal Neck: supple Respiratory/Chest: chest non-tender, no respiratory distress, no accessory muscle use, + crackles Cardiovascular: regular rate, rhythm, no edema, no gallop, no JVD, no murmur Abdomen: normal bowel sounds, non tender, soft, no organomegaly Extremities: normal range of motion, non-tender, normal inspection, no pedal edema 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, no motor/sensory deficits, alert, normal mood/affect, oriented x 3 Skin: normal color, warm/dry, no rash Laboratory Results Last 24 Hours Test 11/11/16 05:47 White Blood Count 9.19 K/uL Red Blood Count 3.94 M/uL Hemoglobin 12.2 g/dL Hematocrit 41.2 % Mean Corpuscular Volume 104.6 fL Mean Corpuscular Hemoglobin 31.0 pg Mean Corpuscular Hemoglobin Concent 29.6 g/dl Platelet Count 236 K/uL Mean Platelet Volume 11.2 fL Neutrophils (%) (Auto) 89.1 % Lymphocytes (%) (Auto) 6.4 % Monocytes (%) (Auto) 4.2 % Eosinophils (%) (Auto) 0.1 % Basophils (%) (Auto) 0.0 % Neutrophils # (Auto) 8.18 K/uL Lymphocytes # (Auto) 0.59 K/uL Monocytes # (Auto) 0.39 K/uL Eosinophils # (Auto) 0.01 K/uL Basophils # (Auto) 0.00 K/uL RDW Standard Deviation 54.3 fL RDW Coefficient of Variation 14.0 % Immature Granulocyte % (Auto) 0.2 % Immature Granulocyte # (Auto) 0.02 K/uL Sodium Level 145 mmol/L Potassium Level 4.1 mmol/L Chloride Level 103 mmol/L Carbon Dioxide Level 39 mmol/L Anion Gap 3.0 mmol/L Blood Urea Nitrogen 32 mg/dl Creatinine 0.78 mg/dl Est Creatinine Clear Calc Drug Dose 110.0 ml/min Estimated GFR () 102.3 Estimated GFR (Non- 88.3 BUN/Creatinine Ratio 40.6 Random Glucose 115 mg/dl Calcium Level 8.6 mg/dl Phosphorus Level 3.5 mg/dl Magnesium Level 2.6 mg/dl Total Bilirubin 0.3 mg/dl Aspartate Amino Transf (AST/SGOT) 9 U/L Alanine Aminotransferase (ALT/SGPT) 29 U/L Alkaline Phosphatase 82 U/L Total Protein 6.4 gm/dl Albumin 2.8 gm/dl Globulin 3.6 gm/dl Albumin/Globulin Ratio 0.8 Assessment and Plan 76-year-old male sent emergency department from [facility] with complaints of altered mental status. Found to be acidotic and hypercapnic in the emergency department. History of obstructive sleep apnea with noncompliance to CPAP Metabolic encephalopathy secondary to acute on chronic hypercapnic respiratory failure and likely obesity hypoventilation syndrome. patient is a chronic retainer PCO2 on admission is 110 Continue BiPAP, currently at night time stable on 2 LO2 sat of 91% (keep sat between 90-93%) mental status improved normal vitamin B12, TSH normal CT head negative Urinalysis from yesterday is clean UDS is negative agreed to use his CPAP machine unfortunately medicare took it back because he wasn't using it, as per patient, needs CPAP/BIPAP machine prior to discharge other merritt will be re admitted again with hypercapnic respiratory failure Chronic diastolic heart failure -Continue Diamox 250 mg daily, Lasix 80 mg twice daily -monitor renal function and electrolytes Severe depression after his son , possibly contributing to not using the BIPAP consult psychiatrist Coronary artery disease -Continue Plavix 75 mg daily, lisinopril 10 mg daily, metoprolol 50 mg twice daily (this was increased on last admission), simvastatin 80 mg daily GERD -Continue pantoprazole 40 mg daily History of DVT-not currently on anticoagulation History of prostate cancer-stable Obstructive sleep apnea with noncompliance instructed to use his CPAP, needs help to re obtain it HTN restarted metoprolol and lisinopril COPD -Duo nebs every 4 hours as needed for wheezing
--- NOTE | 2016-11-11 16:43 | CONSULTATION REPORT ---
DATE OF CONSULTATION: 11/11/2016 IDENTIFYING DATA: Brice Osei is a 76-year-old gentleman from [place], who is admitted to the medical floor from [facility], where he developed altered mental status. We are consulted to evaluate depression. Information is gathered from the patient, the electronic medical record, and considered to be reliable. CHIEF COMPLAINT: "I had breathing problems." HISTORY OF PRESENT ILLNESS: Brice Osei is a 76-year-old gentleman who was here in our hospital for congestive heart failure from October 28 to November 01. He was evidently discharged to home and represented on November 07 for generalized weakness. He was sent from the Emergency Room to [facility] for ongoing rehab but deteriorated over the night, had altered mental status and represented to the Emergency Room on November 08. The patient has obstructive sleep apnea and is supposed to wear CPAP, however does not because he finds it too claustrophobic, precipitating panic. He also has congestive heart failure, COPD, hypertension, dyslipidemia, history of an SD and TIA. Along with his many medical problems, he has experienced losses in his life. He had a 54-year-old son who on July 08 from heart failure. He also lost his beloved cat 3 months later. He admits that his mood has been depressed since his son in June. He has a history of being on Celexa at some point in the past; however, his family reported that he was more irritable and so he stopped. He says the irritability continued even after being off of the Celexa and he wanted to try another antidepressant but his family did not want him to. He notes that his is adamantly opposed to depression medicines. He reports today that his mood is rated a 5 or 6 on a 0-10 scale with 10 being the best mood ever. He reports poor sleep, with significant difficulty staying asleep, waking every 2 hours and worrying about his problems. He then naps off and on during the day. He reports good appetite. He denies being a chronic worrier however, does worry currently about the financial aspect of being in the hospital, feeling unable to pay the 20% copay with his Medicare. He denies clear auditory or visual hallucinations but did say that several times after his cat , he thought he saw the cat in the room when he woke at night. The patient reports getting panic attacks that are generally triggered by the use of his CPAP. He says he will wake up and if the CPAP is on his face, will immediately feel panicky, which results in him feeling irritable, "like I want to bust something." He denies that he chronically has problems with anger and specifically denies that he is someone who has gotten into fights or whose family says that he yells. In evaluating any bipolar distribution to his moods, he initially says that he has had periods of elevated mood but as it turns out, he misunderstood the question and then denies that he has ever had any euphoric mood, sleeplessness or pleasure seeking behaviors. He denies suicidal thinking. CURRENT MEDICATIONS: 1. Senokot 17.2 mg q.a.m. 2. Ciprofloxacin ophthalmic ointment 1 application 4 times daily. 3. Methylprednisolone IV. 4. Diamox 250 mg daily. 5. Plavix 75 mg daily. 6. Zestril 10 mg daily. 7. Protonix 40 mg daily. 8. Lovenox 30 mg q. 24 hours. 9. Hydralazine 25 mg b.i.d. 10. Lopressor 50 mg b.i.d. 11. Zocor 40 mg q.p.m. 12. Hytrin 5 mg at bedtime. 13. Lasix 80 mg b.i.d. PAST PSYCHIATRIC HISTORY: The patient has never seen a mental health professional. He has never been hospitalized for mental health reasons. He has had suicidal thinking in the past, but has never made a suicide attempt. PRIOR MEDICATION TRIALS: Celexa -- made irritable. ACCESS TO GUNS: Denies. ALLERGIES: NKDA. PAST MEDICAL HISTORY: 1. Congestive heart failure. 2. Prostate cancer. 3. COPD. 4. History of a DVT. 5. Heart disease. 6. Hypertension. 7. Dyslipidemia. 8. History of a TIA. 9. Denies history for head injury or seizure. FAMILY HISTORY: Denies for psychiatric history, substance use or suicide. There is heart disease and COPD in the family. SUBSTANCE USE HISTORY: The patient never had any problems with alcohol and his last drink was years ago. He denies the use of street drugs ever in his life. PERSONAL HISTORY: The patient grew up in [place] and currently resides in [place]. He has been twice, his first marriage ended in divorce and his after that. He has been remarried since around 2002 and describes a good relationship with her. He had 1 son who last fall and has a daughter who currently resides in [place]. He is not a spiritual individual. He denies legal concerns. Psychological trauma history is denied. MENTAL STATUS EXAMINATION: This is an obese gentleman dressed in hospital gowns, wearing oxygen by cannula, seated at the bedside chair. He is alert and cooperative with the interview. Eye contact is minimal, but appropriate. Motor behavior is unremarkable. Speech is of normal rate, volume, and tone. Affect is flat. Mood is depressed. Thought process is organized and goal directed. He denies thought disorder in the form of hallucinations or delusions. He denies thoughts, plans, or intent to harm himself or anybody else. Today, he is oriented to person and place. He did think that the date was 01/10/2017 but was easily reoriented. He was able to spell the word world forward and backward fluently and identify 5 cities in the [place] He is aware of our current president, but that the last president was Pineda. His intelligence is estimated to be average. Insight and judgment are fair. VITAL SIGNS: Temperature 36.4, pulse 73, respirations 18, blood pressure 133/65, pulse ox 96% on BiPAP. LABORATORIES: 1. CBC with diff -- RBC 3.94, hemoglobin and hematocrit low at 12.2 and 41.2, MCV 104.6, MPV elevated at 11.2. 2. Chem profile -- notable for carbon dioxide 39, BUN 32, glucose 115, magnesium high at 2.6, albumin low at 2.8. 3. TSH -- within normal limits at 0.480. 4. Drug screen -- negative. Urinalysis -- trace ketones. REVIEW OF SYSTEMS: Positive for complaints of shortness of breath, wearing O2 by cannula, depression, panic with CPAP. PHYSICAL EXAMINATION: As per Dr. Layne Hardy. IMPRESSION: A 76-year-old gentleman with multiple medical problems, hospitalized from [facility] due to altered mental status. The patient's altered mental status appears to be resolving with only some mild disorientation as to date. He readily admits that he is depressed after the loss of his son and his cat. I do think that his depression would respond to being on antidepressants and would like to see him on a trial of Effexor XR starting at 37.5 mg. We have discussed this but the patient is not ready to say yes, it appears, mostly because his is not in favor of antidepressants. I have told him that I will put my recommendations in writing and that if he changes his mind, he need but ask his attending to have us come back to restart that here in the hospital, as I would like to see if it has any impact to his blood pressure. 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 DIAGNOSES: 1. Major depressive disorder, recurrent, moderate. 2. Medical conditions as above. PLAN: Has been reviewed with Dr. Andie Wright. 1. Depression. -- Recommended trial of Effexor XR 37.5 mg daily, titrating as tolerated, and with caution to elevating his blood pressure. We would recommend starting here in the hospital, so as to observe any effect to his hypertension, although the patient is concerned about going on medicines that his does not want. If he changes his mind, we would be happy to return to get them started. -- We would recommend therapy; however, the patient does not want to talk with anybody outside of his family. -- Does not meet any criteria for inpatient mental health treatment. We thank you for allowing us to participate in this man's care.
[2016-11-11] MEDS: SIMVASTATIN 40 MG TAB PO SCH (20:53)
[2016-11-11] MEDS: METHYLPREDNISOLONE IV 20 MG in SYRINGE 0 ML IV SCH (20:53)
[2016-11-11] MEDS: ENOXAPARIN 30 MG/0.3 ML SYR SC SCH (20:55)
[2016-11-12 03:40] VITALS: BP 108/57; PULSE 72; TEMP 36.5; O2SAT 95
[2016-11-12] MEDS: METHYLPREDNISOLONE IV 20 MG in SYRINGE 0 ML IV SCH ×2 (05:36→13:45)
[2016-11-12 07:33] LABS: BASO % 0.1 %; BASO ABS # 0.01 K/uL (0-0.2); COMPLETE YES; EOS % 0.7 %; HEMATOCRIT 40.8 % (42-52); IG% 0.2 %; LYMPH % 11.3 %; LYMPH ABS # 0.99 K/uL (1.2-3.4); MEAN CORPUSCULAR HEMOGLOBIN 30.3 pg (25-34); MEAN CORPUSCULAR HGB CONC 29.4 g/dl (32-36); MEAN PLATELET VOLUME 10.8 fL (7.4-10.4); MONO % 7.9 %; NEUT % 79.8 %; PLATELET COUNT 228 K/uL (130-400); RED BLOOD COUNT 3.96 M/uL (4.7-6.1); WHITE BLOOD COUNT 8.75 K/uL (4.8-10.8)
[2016-11-12 07:56] VITALS: BP 97/58; PULSE 71; TEMP 36.7; O2SAT 95
[2016-11-12 08:10] LABS: BUN/CREATININE RATIO 42.6 (10-20); CALCIUM 8.3 mg/dl (8.5-10.1); CREATININE 0.86 mg/dl (0.60-1.40); MAGNESIUM 2.7 mg/dl (1.8-2.4); PHOSPHORUS 2.1 mg/dl (2.5-4.9); POTASSIUM 3.9 mmol/L (3.5-5.1)
[2016-11-12] MEDS: AcetaZOLAMIDE 250 MG TAB PO SCH (09:36)
[2016-11-12] MEDS: FUROSEMIDE 80 MG TAB PO SCH (09:36)
[2016-11-12] MEDS: CIPROFLOXACIN HCL 3.5 GM TUBE OP SCH ×2 (09:36→12:51)
[2016-11-12] MEDS: CLOPIDOGREL BISULFATE 75 MG TAB PO SCH (09:37)
[2016-11-12] MEDS: METOPROLOL TARTRATE 50 MG TAB PO SCH (09:37)
[2016-11-12] MEDS: SENNA 8.6 MG TAB PO SCH (09:37)
[2016-11-12] MEDS: LISINOPRIL 10 MG TAB PO SCH (09:37)
[2016-11-12] MEDS: PANTOprazole SOD 40 MG TAB PO SCH ×2 (09:37→11:18)
[2016-11-12 09:38] VITALS: BP 108/57; PULSE 83
[2016-11-12 12:16] VITALS: BP 98/48; PULSE 61; TEMP 36.6; O2SAT 94
--- NOTE | 2016-11-12 12:20 | Discharge Instructions ---
Discharge Instructions Date of Service Nov 12, 2016. Admission Reason for Admission: Acute Hypercapnic Respiratory Failure Due To Discharge Discharge Diagnosis / Problem: Acute Hypercapnic Respiratory Failure due to obesity hypoventilation Discharge Goals Goal(s): Decrease discomfort, Improve function, Increase independence, Improve disease control Activity Recommendations Activity Limitations: per Instructions/Follow-up section Lifting Limitations: gradually increase as tolerated Exercise/Sports Limitations: gradually increase as tolerated Shower/Bathe: no limitations Driving or Machine Use: no limitations . Instructions / Follow-Up Instructions / Follow-Up You were admitted to [facility] with shortness of breath and diagnosed with Acute Hypercapnic Respiratory Failure due to obesity hypoventilation. - During your stay here you were treated with breathing treatments. It is imperative that you wear CPAP at night, or you will develop decreased oxygen in your body, build up of carbon dioxide and can become fatigued and confused. During your stay at [facility] you will have a nocturnal oximetry test to qualify you for home CPAP machine. Please make sure this test is completed while you are there. Continue physical therapy as instructed at [facility] Diet and exercise to help to loose weight, if you loose enough weight, ie. more than 20 lbs, you may not even need to wear cpap anymore. Continue taking all other medications as prescribed. Follow up with your Primary Care Provider within 1 week. Current Hospital Diet Patient's current hospital diet: Regular Diet Discharge Diet Recommended Diet: AHA Diet (Heart Healthy), Diabetes Type 2 Diet Pending Studies Studies pending at discharge: no Medical Emergencies . Who to Call and When: Medical Emergencies: If at any time you feel your situation is an emergency, please call 911 immediately. . Non-Emergent Contact Non-Emergency issues call your: Primary Care Provider . Past History Medical & Surgical History: (1) Acute hypercapnic respiratory failure due to obstructive sleep apnea (2) Hypercarbia (3) SOB (shortness of breath) (4) COPD (chronic obstructive pulmonary disease) (5) CHF (congestive heart failure) (6) Cancer of prostate (7) Hypercholesteremia (8) HTN (hypertension) . "Provider Documentation" section prepared by Naomie Ni. VTE Core Measure Inpt VTE Proph given/why not?: Other Anticoagulation, T.E.D. Stockings, SCD's
--- NOTE | 2016-11-12 12:50 | Discharge Summary ---
Discharge Summary Date of Service Nov 12, 2016. Discharge Summary Admission Date: Nov 08, 2016 at 12:08 Discharge Date: Nov 12, 2016 Discharge Disposition: Rehab Principal Diagnosis: Acute hypercarbic respiratory failure d/t obesity hypoventilation syndrome Immunizations: Have You Had Influenza Vaccine: Unknown Influenza Vaccine Date: Apr 20, 2013 History of Tetanus Vaccine?: Unknown Tetanus Immunization Date: Aug 22, 2010 History of Pneumococcal: Unknown Pneumococcal Date: Jun 22, 2011 History of Hepatitis B Vaccine: Unknown Procedures: HTN, hyperlipidemia, CHF, morbid obesity, COPD, hx stroke, hypercarbia, acute hypercarbic respiratory failure d/t obesity hypoventilation syndrome Consultations: None Discharge Exam The patient was seen and examined this morning. Pt reports feeling at his baseline, he's doing well. He has no complaints of shortness of breath. He is very adamant that he doesn't like CPAP. Cornell discussion was held with him about needing to wear it while he sleeps. I also suggested that if he can't wear it he sleep upright in a recliner. We discussed weight loss and dieting. If he were to loose more than 20 lbs he would significantly benefit from a respiratory and cardiac standpoint. Pt is in agreement with attempt to loose weight. Review of Systems: Constitutional: No chills, No fever, No sweats Eyes: No diplopia, No redness ENT: No sore throat, No trouble swallowing Respiratory: No cough, No dyspnea on exertion, No shortness of breath Cardiovascular: No chest pain, No orthopnea, No palpitations Abdomen: No constipation, No diarrhea, No nausea, No pain, No vomiting Musculoskeletal: + calf pain (bilateral and chronic), No joint pain, No swelling Genitourinary - Male: + problem reported (pearson catheter in place), No dysuria, No hematuria Neurologic: No balance problems, No numbness/tingling Psychiatric: + depression symptoms Endocrine: No fatigue Integumentary: No itch, No rash Physical Exam: General Appearance: WD/WN, no apparent distress, + obese Eyes: PERRL, EOMI ENT: hearing grossly normal, pharynx normal Neck: supple, no JVD Respiratory/Chest: no respiratory distress, no accessory muscle use, + pertinent finding (slightly diminished breath sounds at bases but likely due to body habitus, no adventitious breath sounds, on 2 L O2 via NC) Cardiovascular: regular rate, rhythm, no murmur, normal peripheral pulses Abdomen / GI: normal bowel sounds, non tender, soft, + pertinent finding ( obese) Extremities: normal inspection, no calf tenderness, no pedal edema Neurologic/Psychiatric: no motor/sensory deficits, alert, normal mood/affect , oriented x 3 Skin: normal color, warm/dry Hospital Course H&P per Aida Allan PA-C Source: hospital records, other (ER physician) This patient is a 76-year-old male with a history of obstructive sleep apnea noncompliant with his CPAP machine that presents to the emergency department from [facility] with complaints of altered mental status. No history is obtainable from the patient. He reportedly was difficult to arouse today. The patient was admitted to the hospital and just discharged on 11/01 with acute diastolic heart failure. During that admission, the patient had nocturnal oximetry performed. He failed. It was recommended that he wear a CPAP at night. The patient has refused. The patient returned to the emergency department on 11/07, yesterday. The main complaint was weakness. He had come from home. The ER physician was able to get the patient to [facility] yesterday for rehabilitation. He obviously declined overnight. It is unknown whether he was compliant with his CPAP machine last night. Workup in the emergency department is significant for acidosis with a pH of 7.15. CO2 elevated at 110. Bicarbonates 38. The patient was put on BiPAP. Another ABG was performed and improved. CT the head was negative for acute changes. Chest x-ray was consistent with mild congestive change. Physical Exam Vital Signs Date Time Temp Pulse Resp B/P Pulse Ox O2 Delivery O2 Flow Rate FiO2 11/08/16 11:45 62 26 130/41 93 BiPAP 11/08/16 11:01 73 24 134/78 94 BiPAP 40 11/08/16 10:27 65 24 110/42 94 BiPAP 40 11/08/16 09:48 85 24 96 BiPAP/CPAP 40 11/08/16 09:48 71 26 101/49 96 BiPAP 21 11/08/16 09:46 85 96 40 11/08/16 09:28 72 28 106/46 95 BiPAP 11/08/16 08:56 73 28 125/61 96 BiPAP 11/08/16 08:40 97 Nasal Cannula 4.0 11/08/16 08:40 3/30/17 08:33 79 11/08/16 08:31 97 Nasal Cannula 4.0 11/08/16 08:30 36.4 82 32 140/51 88 Room Air General Appearance: + mild distress, + pertinent finding (arousable to loud verbal stimuli. Answers some questions.) Head: normocephalic Eyes: PERRL Neck: + pertinent finding (morbid obesity noted. No JVD noted.) Respiratory/Chest: lungs clear, + pertinent finding (on BiPAP settings 18/8 with an FiO2 of 40%) Cardiovascular: regular rate, rhythm Abdomen/GI: normal bowel sounds, non tender, soft Extremities/Musculoskelatal: no calf tenderness, no pedal edema Neurologic/Psych: + pertinent finding (arousable to loud verbal stimuli. Answers some questions appropriately. Does not follow commands.) Skin: warm/dry Hospital Course 76-year-old male sent emergency department from [facility] with complaints of altered mental status. Found to be acidotic and hypercapnic in the emergency department. History of obstructive sleep apnea with noncompliance to CPAP. He developed metabolic encephalopathy secondary to acute on chronic hypercapnic respiratory failure and obesity hypoventilation syndrome. Metabolic encephalopathy secondary to acute on chronic hypercapnic respiratory failure and obesity hypoventilation syndrome. - patient is a chronic retainer - PCO2 on admission is 110, repeat and best PCO2 was low 60s. - Continue BiPAP, currently at night time- pt is claustrophobic and reports trying several types of masks in the past. He is agreeable to trying to wear it again at time of discharge. Discussion regarding weight loss was held with the patient, he is agreeable to trying to loose weight and eat healthier as well. - stable on 2 LO2 sat of 91% (keep sat between 90-93%) - normal vitamin B12, TSH - normal CT head - UA is clean so no infectious source from urine - UDS is negative - agreed to use his CPAP machine unfortunately medicare took it back because he wasn't using it, as per patient - Pt will need noctural oximetry testing while at [facility] so that he can qualify for a home CPAP machine. This was discussed with the patient and the CM who provided information to Anabelle from [facility]. He will need CPAP so that he doesn't become hypercapnic again. 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 Consider this in the future. Pt was encouraged to follow up with depression sx with his PCP. Coronary artery disease -Continue Plavix 75 mg daily, lisinopril 10 mg daily, metoprolol 50 mg twice daily (this was increased on last admission), simvastatin 80 mg daily GERD -Continue pantoprazole 40 mg daily History of DVT-not currently on anticoagulation History of prostate cancer-stable Obstructive sleep apnea with noncompliance - instructed to use his CPAP,plans for nocturnal oximetry test at [facility] prior to discharge to home, once he qualifies he can then get home CPAP. - Also instructed to diet, exercise, and ultimately loose weight. HTN restarted metoprolol and lisinopril COPD -Duo nebs every 4 hours as needed for wheezing DVT ppx: teds, scds, oob Disposition: Discharge to [facility] Total Time Spent: Greater than 30 minutes This includes examination of the patient, discharge planning, medication reconciliation, and communication with other providers. Discharge Instructions Please refer to the electronic Patient Visit Report (Discharge Instructions) for additional information. Follow-Up Follow up with your Primary Care Provider within 1 week.
[2016-11-12 13:55] VITALS: BP 98/48; PULSE 61; TEMP 36.6; O2SAT 94
[2016-11-12 15:49] VITALS: BP 110/65; PULSE 73; TEMP 36.3; O2SAT 94
[2017-01-02] MEDS ORDERED: POTA10CA28 PO (13:07)
[2017-01-02] MEDS ORDERED: VENL75CA PO (13:07)
[2017-01-02] MEDS ORDERED: LSX80 PO (13:07)
[2017-01-02] MEDS ORDERED: IPRASOL4 INH (13:07)
[2017-01-02] MEDS ORDERED: MCTP EXT (13:07)
[2017-01-02] MEDS ORDERED: NTRTP TD (13:15)
== END 2016-11-12 16:45 | DRG 189 ==
LOC: ENRESERVDT → ENRESERVTM → EDBD 08:27 → C.EDA 08:28 → C.2T 12:08
PROVIDERS: ADMIT Internal Medicine; ATTEND Internal Medicine
DX: J96.22 Acute and chronic respiratory failure with hypercapnia (principal); G93.41 Metabolic encephalopathy; E66.2 Morbid (severe) obesity with alveolar hypoventilation; E87.2 Acidosis; I50.32 Chronic diastolic (congestive) heart failure; Z68.41 Body mass index [BMI] 40.0-44.9, adult; F33.1 Major depressive disorder, recurrent, moderate; J44.9 Chronic obstructive pulmonary disease, unspecified; Z85.46 Personal history of malignant neoplasm of prostate; I25.10 Atherosclerotic heart disease of native coronary artery without angina pectoris; I25.2 Old myocardial infarction; I10 Essential (primary) hypertension; E78.00 Pure hypercholesterolemia, unspecified; Z86.73 Personal history of transient ischemic attack (TIA), and cerebral infarction without residual deficits; K21.9 Gastro-esophageal reflux disease without esophagitis; Z86.718 Personal history of other venous thrombosis and embolism; R53.1 Weakness; Z98.52 Vasectomy status; Z87.891 Personal history of nicotine dependence; Z79.82 Long term (current) use of aspirin; Z79.899 Other long term (current) drug therapy

== ENCOUNTER 2016-12-26 10:15 | Inpatient (IN) | payer OTHER ==
[2016-12-26] VITALS (14 sets, daily range): BP systolic 130–189; BP diastolic 46–80; PULSE 59–91; TEMP 36.4–37.4; O2SAT 92–99; Ht 170.2 cm; Wt 131.3 kg
[~2016-12-26] VITALS: Ht 170.2 cm; Wt 131.3 kg
[~2016-12-26 10:15] MED LIST changes: +ACET-1256 PO; -ASPI81TA28 PO; +BISA1SUP4 PR; +LIDO2SOL19 PO; -MOME220A INH; +MOML PO; +PANT1TAB48 PO; +POLY335019 PO; -PRLSR20 PO; +SENN-65 PO; +SODI1ENE PR
[2016-12-26] MEDS ORDERED: FUROSEMIDE INJ 80 MG in SYRINGE 0 ML IV STA (11:54)
--- NOTE | 2016-12-26 12:13 | DIAGNOSTIC IMAGING REPORT ---
CHEST ONE VIEW PORTABLE CLINICAL HISTORY: EVALUATE RESPIRATORY DISTRESS. DYSPNEA dyspnea COMPARISON STUDY: 11/10/2016 FINDINGS: Moderate cardiomegaly. Prominent pulmonary vasculature. Atelectatic change left base. Trace pleural fluid both lung bases. Multiple old right-sided rib fractures. IMPRESSION: Congestive failure. Electronically signed by: Ward Proctor M.D. 12/26/2016 12:12 PM Dictated Date/Time: 12/26/2016 12:12 PM
[2016-12-26 12:33] LABS: ISTAT ARTERIAL BLOOD GAS HCO3 39 meq/L (19-24); ISTAT ARTERIAL BLOOD GAS PCO2 96 mmHg (35-46); ISTAT ARTERIAL BLOOD GAS PO2 72 mmHg (80-95); ISTAT ARTERIAL BLOOD GAS pH 7.21 (7.35-7.45); ISTAT CARBON DIOXIDE > 40 mEq/l (24-31)
--- NOTE | 2016-12-26 12:43 | EMERGENCY ROOM VISIT NOTE ---
History First contact with patient: 11:45 Chief Complaint: SHORTNESS OF BREATH Stated Complaint: EDEMA/ RESPIRATORY Nursing Triage Summary: pt has been admitted to hospital then to [facility] and back to hospital then back to [facility]. pt c/o sob and spouse told ems pt is noncomplaint at home drinks plenty of fluid and does not wear cpap as ordered. medic reports pt has not been maintaining sat while on nc drops back to 90-91% on 4l. medic report tachypnenia .pt has bilat lower ext edema +3 ,pt lungs diminished and rales in bases. pt has nonproductive wet cough. pt received 8 nitro sprays prehospital. History of Present Illness The patient is a 76 year old male who presents to the Emergency Room via EMS with complaints of shortness of breath, hypoxia, bilateral lower extremity edema , and cough. Patient has been admitted to this hospital and to [facility] rehabilitation multiple times over the past few months. He most recently was discharged home from [facility], and according to EMS report, patient's spouse states he has not been compliant with his therapies or his fluid restrictions. He has known congestive heart failure, is on 80 mg oral Lasix daily, unclear whether he has been taking this or not. Patient is unable to provide any pertinent history due to clinical condition. Review of Systems Limited due to patient's clinical condition and altered mental status. No family members available at time of evaluation. Past Medical/Surgical History Medical Problems: (1) Acute hypercapnic respiratory failure due to obstructive sleep apnea (2) Cancer of prostate (3) CHF (congestive heart failure) (4) COPD (chronic obstructive pulmonary disease) (5) DVT (deep venous thrombosis) (6) Heart disease (7) HTN (hypertension) (8) Hypercapnic respiratory failure (9) Hypercholesteremia (10) Myocardial infarct (11) TIA (transient ischemic attack) Surgical Problems: (1) History of appendectomy (2) Hx of tonsillectomy (3) Hx of vasectomy Family History Patient reports no known family medical history. Social History Smoking Status: Former Smoker Alcohol Use: none Drug Use: none Marital Status: Housing Status: lives with family Occupation Status: retired Current/Historical Medications Scheduled Calcium Carbonate-Vitamin D (Calcium 600 + D), 1 TABLET PO DAILY Clopidogrel (Plavix), 75 MG PO DAILY Docusate Sodium (Docusate Sodium), 100 MG PO BID Lisinopril (Zestril), 10 MG PO DAILY Metoprolol Tartrate (Lopressor) (Lopressor), 50 MG PO BID Multivitamin (Multivitamin), 1 TABLET PO DAILY Pantoprazole (Protonix), 40 MG PO DAILY Senna/Docusate Sod (Senokot S), 1 TAB PO DAILY@1200 Simvastatin (Zocor), 40 MG PO QPM Terazosin (Hytrin), 5 MG PO HS Scheduled PRN Acetaminophen (Tylenol), 500 MG PO Q4H PRN for Fever Ipratropium-Albuterol (Duoneb), 1 TREATMENT INH QID PRN for SOB/Wheezing Magnesium Hydroxide (Milk Of Magnesia), 30 ML PO DAILY PRN for Constipation Nitroglycerin (Nitrostat), 0.4 MG UT UD PRN for Chest Pain Polyethylene Glycol 3350 (Miralax), 17 GM PO DAILY PRN for Constipation Allergies Coded Allergies: No Known Allergies (Verified , 11/07/16) Physical Exam Vital Signs Date Time Temp Pulse Resp B/P Pulse Ox O2 Delivery O2 Flow Rate FiO2 12/26/16 13:35 69 24 143/59 96 BiPAP 6.0 12/26/16 13:14 78 12/26/16 12:11 75 34 155/65 92 BiPAP 12/26/16 11:18 88 94 12/26/16 11:02 66 24 127/59 90 CPAP 6.0 12/26/16 10:47 89 CPAP 12/26/16 10:35 37.2 88 24 164/68 91 Nasal Cannula 4.0 12/26/16 10:35 91 Room Air 3.0 12/26/16 10:30 91 Physical Exam CONSTITUTIONAL: Somnolent, arousable with tactile stimulation, but quickly falls back to sleep. Denies pain. HEENT: Normocephalic, atraumatic. Pupils equal, round and reactive to light, EOMI. dry mucous membranes. NECK: Supple, full active range of motion without discomfort. RESPIRATORY: Severely diminished lung sounds bilaterally, Rales and rhonchi heard in both lung ponce. Tachypnea With respiratory rate in the mid 40s. Use of suprasternal accessory muscles noted. CARDIOVASCULAR: Regular rate and rhythm with no rubs or gallops. 3/6 systolic murmur heard most at the right sternal border. Normal peripheral perfusion. No edema. Normal sinus rhythm on monitor with frequent PVCs noted. GASTROINTESTINAL: Soft, nontender, nondistended. Obese abdomen. Bowel sounds present but diminished in all quadrants. MUSCULOSKELETAL: Full range of motion of all joints without discomfort. INTEGUMENTARY: No rash or other significant dermatologic conditions noted. NEUROLOGIC: Patient is somnolent, arousable only to tactile stimulation. Follows basic commands. Oriented to person and place. No focal weakness noted. Medical Decision & Procedures ER Provider Diagnostic Interpretation: CHEST ONE VIEW PORTABLE CLINICAL HISTORY: EVALUATE RESPIRATORY DISTRESS. DYSPNEA dyspnea COMPARISON STUDY: 11/10/2016 FINDINGS: Moderate cardiomegaly. Prominent pulmonary vasculature. Atelectatic change left base. Trace pleural fluid both lung bases. Multiple old right-sided rib fractures. IMPRESSION: Congestive failure. Laboratory Results 12/26/16 12:25 Red Blood Count 3.78, Mean Corpuscular Volume 104.2, Mean Corpuscular Hemoglobin 31.0, Mean Corpuscular Hemoglobin Concent 29.7, Mean Platelet Volume 11.2, Neutrophils (%) (Auto) 76.2, Lymphocytes (%) (Auto) 14.2, Monocytes (%) ( Auto) 8.1, Eosinophils (%) (Auto) 1.2, Basophils (%) (Auto) 0.2, Neutrophils # ( Auto) 6.18, Lymphocytes # (Auto) 1.15, Monocytes # (Auto) 0.66, Eosinophils # ( Auto) 0.10, Basophils # (Auto) 0.02 12/26/16 12:25 Test 12/26/16 12:25 12/26/16 12:29 12/26/16 12:40 White Blood Count 8.12 K/uL (4.8-10.8) Red Blood Count 3.78 M/uL (4.7-6.1) Hemoglobin 11.7 g/dL (14.0-18.0) Hematocrit 39.4 % (42-52) Mean Corpuscular Volume 104.2 fL (80-100) Mean Corpuscular Hemoglobin 31.0 pg (25-34) Mean Corpuscular Hemoglobin Concent 29.7 g/dl (32-36) Platelet Count 269 K/uL (130-400) Mean Platelet Volume 11.2 fL (7.4-10.4) Neutrophils (%) (Auto) 76.2 % Lymphocytes (%) (Auto) 14.2 % Monocytes (%) (Auto) 8.1 % Eosinophils (%) (Auto) 1.2 % Basophils (%) (Auto) 0.2 % Neutrophils # (Auto) 6.18 K/uL (1.4-6.5) Lymphocytes # (Auto) 1.15 K/uL (1.2-3.4) Monocytes # (Auto) 0.66 K/uL (0.11-0.59) Eosinophils # (Auto) 0.10 K/uL (0-0.5) Basophils # (Auto) 0.02 K/uL (0-0.2) RDW Standard Deviation 55.9 fL (36.4-46.3) RDW Coefficient of Variation 14.6 % (11.5-14.5) Immature Granulocyte % (Auto) 0.1 % Immature Granulocyte # (Auto) 0.01 K/uL (0.00-0.02) Prothrombin Time 10.5 SECONDS (9.0-12.0) Prothromb Time International Ratio 1.0 (0.9-1.1) Activated Partial Thromboplast Time 25.4 SECONDS (21.0-31.0) Partial Thromboplastin Ratio 1.0 Est Creatinine Clear Calc Drug Dose 133.3 ml/min Estimated GFR () 109.6 Estimated GFR (Non- 94.6 BUN/Creatinine Ratio 29.9 (10-20) Calcium Level 8.1 mg/dl (8.5-10.1) Phosphorus Level 4.1 mg/dl (2.5-4.9) Total Bilirubin 0.3 mg/dl (0.2-1) Aspartate Amino Transf (AST/SGOT) 18 U/L (15-37) Alanine Aminotransferase (ALT/SGPT) 27 U/L (12-78) Alkaline Phosphatase 91 U/L (45-117) Troponin I 0.020 ng/ml (0-0.045) Pro-B-Type Natriuretic Peptide 1318 pg/ml (0-900) Total Protein 6.5 gm/dl (6.4-8.2) Albumin 3.0 gm/dl (3.4-5.0) Globulin 3.5 gm/dl (2.5-4.0) Albumin/Globulin Ratio 0.9 (0.9-2) Bedside Hemoglobin 12.6 g/dl (14.0-18.0) Bedside Hematocrit 37 % (42-52) Bedside Sodium 144 mEq/L (135-144) Bedside Potassium 4.0 mEq/L (3.3-5.0) Bedside Chloride 98 mEq/L (101-112) Bedside Total CO2 35 mEq/l (24-31) Anion Gap 16.0 mmol/L (16-25) Bedside Blood Urea Nitrogen 21 mg/dl (7-18) Bedside Creatinine 0.8 mg/dl (0.6-1.3) Bedside Glucose (other) 109 mg/dl (70-99) Bedside Lactic Acid Venous 0.64 mmol/L (0.90-1.70) Bedside Ionized Calcium (Gladys) 1.08 mmol/l (1.12-1.32) Urine Color DK YELLOW Urine Appearance CLEAR (CLEAR) Urine pH 5.0 (4.5-7.5) Urine Specific Taylor 1.025 (1.000-1.030) Urine Protein NEG (NEG) Urine Glucose (UA) NEG (NEG) Urine Ketones NEG (NEG) Urine Occult Blood NEG (NEG) Urine Nitrite NEG (NEG) Urine Bilirubin NEG (NEG) Urine Urobilinogen NEG (NEG) Urine Leukocyte Esterase NEG (NEG) Date/Time Source Procedure Growth Status 12/26/16 00:00 Nasal MRSA DNA Surveillance Screen - Final Specimen Negative for MRSA by DNA Probe Complete Medications Administered Medications (Trade) Dose Ordered Sig/Abhijeet Route Start Time Stop Time Status Last Admin Dose Admin Furosemide/Syringe (Lasix Inj/ Syringe) 8 ml @ 4 mls/min NOW STAT IV 12/26/16 11:54 12/26/16 11:57 DC 12/26/16 12:25 4 MLS/MIN ECG Indication: SOB/dyspnea Rhythm: normal sinus Findings: nonspecific-ST abn (Anterior), no acute ischemic change, no ectopy Change: no significant change Medical Decision CC: Patient presenting with complaint of shortness of breath Interpretation of Labs: Mild anemia. I-STAT ABG concerning for acidosis, hypercapnia, hypoxemia. Elevated pro--BNP consistent with congestive heart failure Differential Diagnosis: Includes, but not limited to congestive heart failure exacerbation, COPD exacerbation, acute PA, pulmonary edema, pneumonia, pleural effusion, PE. Summary: Patient was evaluated at bedside, limited history due to patient's decreased mental status. Physical exam findings concerning for altered mental status, tachypnea, hypoxia , diminished lung sounds with rales, 3+ pitting edema in the bilateral lower extremities. Patient had been placed on BiPAP by respiratory therapy prior to my evaluation of the patient. Orders were placed and care was directed at bedside for labs, ABG, BiPAP changes to evaluate and treat for respiratory distress and possible impending failure. IV Lasix ordered for diuresis. 1215 - Point of care ABG done at bedside, concerning for hypercapnia with acidosis. BiPAP adjustments made by respiratory therapy with plan for repeat ABG in 1 hour. EKG evaluated and shows normal sinus rhythm with nonspecific T-wave abnormalities, no ischemic changes are noted and no changes from previous. Chest x-ray noted at bedside, moderate bilateral pulmonary congestion consistent with CHF exacerbation Repeat ABG shows improvement, however patient continues to be somnolent. Patient also appears clinically improved with sats 95-96%, tachypnea improving with respiratory rate in the mid 20s and no longer using accessory muscles. Patient appears to be diuresing nicely with the IV Lasix. Patient discussed with Dr. Olson, who agrees with my assessment and plan. Patient reassessed multiple times throughout ED stay, appears to be improving but remains critically ill. Patient discussed with Dr. Banegas, hospitalist service, who agrees with plan for admission to ICU. Impression Primary Impression: CHF (congestive heart failure) Additional Impression: Respiratory failure Critical Care I have personally spent greater than 30 minutes of critical care time in the direct management of this patient. This includes bedside care, interpretation of diagnostic studies, and testing, discussion with consultants, patient, and family members, and other required patient management activities. This 30 minutes is in excess of all separately billable procedures. Departure Information Dispostion Admitted as an inpatient (ICU) Condition POOR Referrals Miquel Banegas MD Patient Instructions [facility] Problem Qualifiers Primary Impression: CHF (congestive heart failure) Congestive heart failure type: unspecified congestive heart failure type Congestive heart failure chronicity: acute Qualified Codes: I50.9 - Heart failure, unspecified Additional Impression: Respiratory failure Chronicity: acute Respiratory failure complication: hypoxia and hypercapnia Qualified Codes: J96.01 - Acute respiratory failure with hypoxia; J96.02 - Acute respiratory failure with hypercapnia
[2016-12-26 12:49] LABS: ISTAT CREATININE 0.8 mg/dl (0.6-1.3); ISTAT HEMOGLOBIN 12.6 g/dl (14.0-18.0); ISTAT IONIZED CALCIUM 1.08 mmol/l (1.12-1.32)
[2016-12-26 12:57] LABS: URINE APPEARANCE CLEAR (CLEAR); URINE COLOR DK YELLOW; URINE NITRITE NEG (NEG); URINE SPECIFIC GRAVITY 1.025 (1.000-1.030); UROBILINOGEN NEG (NEG)
[2016-12-26 13:12] LABS: MANUAL MICROSCOPIC REQUIRED? NO; REVIEW REQ? NO; URINE BILIRUBIN NEG (NEG)
[2016-12-26 13:12] LABS: BASO % 0.2 %; BASO ABS # 0.02 K/uL (0-0.2); COMPLETE YES; EOS % 1.2 %; HEMATOCRIT 39.4 % (42-52); IG% 0.1 %; LYMPH % 14.2 %; LYMPH ABS # 1.15 K/uL (1.2-3.4); MEAN CELL VOLUME 104.2 fL (80-100); MEAN CORPUSCULAR HGB CONC 29.7 g/dl (32-36); MEAN PLATELET VOLUME 11.2 fL (7.4-10.4); MONO % 8.1 %; NEUT % 76.2 %; PLATELET COUNT 269 K/uL (130-400); RED BLOOD COUNT 3.78 M/uL (4.7-6.1); WHITE BLOOD COUNT 8.12 K/uL (4.8-10.8)
[2016-12-26 13:20] LABS: BUN/CREATININE RATIO 29.9 (10-20); CALCIUM 8.1 mg/dl (8.5-10.1); CREATININE 0.66 mg/dl (0.60-1.40); POTASSIUM 4.2 mmol/L (3.5-5.1)
[2016-12-26 13:26] LABS: ALB/GLOB RATIO 0.9 (0.9-2)
[2016-12-26 13:51] LABS: PROTHROMBIN TIME (PATIENT) 10.5 SECONDS (9.0-12.0)
[2016-12-26] MEDS ORDERED: ONDANSETRON INJ 2 MG/ML 2 ML VIAL IV PRN (14:00)
[2016-12-26] MEDS ORDERED: ALBUT/IPRATROP 3MG/0.5MG NEB 3 ML VIAL INH PRN (14:00)
[2016-12-26] MEDS ORDERED: ACETAMINOPHEN 325 MG TAB PO PRN (14:00)
[2016-12-26] MEDS ORDERED: MoRPHine SULFATE 2 MG/ML CARP IV PRN (14:00)
[2016-12-26 14:04] LABS: ISTAT ARTERIAL BLOOD GAS HCO3 39 meq/L (19-24); ISTAT ARTERIAL BLOOD GAS PCO2 79 mmHg (35-46); ISTAT ARTERIAL BLOOD GAS PO2 59 mmHg (80-95); ISTAT CARBON DIOXIDE > 40 mEq/l (24-31)
--- NOTE | 2016-12-26 14:38 | EMERGENCY ROOM VISIT NOTE ---
ED Visit Note First contact with patient: 12:16 I have personally seen and evaluated the patient with the PA. I agree with the diagnosis and management decisions and have been personally involved in the case. Please see JONATHAN Cordoba's notes for further details of the history, physical and visit.
[2016-12-26] MEDS ORDERED: NITROGLYCERIN 0.4 MG SL PER TAB CHARGE UT PRN (14:45)
[2016-12-26] MEDS ORDERED: MAGNESIUM HYDROXIDE SUSP 30 ML UDC PO PRN (14:45)
--- NOTE | 2016-12-26 15:47 | History and Physical ---
History & Physical Date & Time of Service: December 26, 2016 at 15:18 Chief Complaint: Edema/ Respiratory Primary Care Physician: Andie Pecae C.R.N.P History of Present Illness Source: hospital records, other 76 y/o M Hx COPD, diastolic CHF, Obesity hypoventilation, MAX - noncompliant w/ CPAP. Pt presents poorly responsive - reportedly since waking this AM - via EMS. He was hypoxic on route and required Bipap to maintain oxygenation. Initial workup in the ER is consistent with both acute on chronic CHF and hypercarbic respiratory failure. The pt was admitted with a near-identical presentation 10/26. An initial ABG revealed a PH of 7.15 and a CO2 of 95. Following administration of Lasix and Bipap use, he is able to maintain an adequate oxygenation, however , his mentation remains poor and he will be transferred to the ICU for further management. He is unable to provide any information at the time of admission. Attempts were made to contact his spouse, thus far without success. Past Medical/Surgical History Medical Problems: (1) Cancer of prostate Status: Resolved (2) CHF (congestive heart failure) Status: Chronic (3) COPD (chronic obstructive pulmonary disease) Status: Chronic (4) DVT (deep venous thrombosis) Status: Resolved (5) Heart disease Status: Chronic (6) HTN (hypertension) Status: Chronic (7) Hypercholesteremia Status: Chronic (8) Myocardial infarct Status: Resolved (9) TIA (transient ischemic attack) Status: Resolved 10) MAX - noncompliant with Bipap 11) Morbid Obesity 12) Hypercapnic respiratory failure Surgical Problems: (1) History of appendectomy Status: Resolved (2) Hx of tonsillectomy Status: Resolved (3) Hx of vasectomy Status: Resolved Family History Patient reports no known family medical history. could not obtain Social History Smoking Status: Former Smoker Drug Use: none Marital Status: Housing status: other Occupational Status: retired Immunizations History of Influenza Vaccine: Unknown Influenza Vaccine Date: Apr 20, 2013 History of Tetanus Vaccine?: Unknown Tetanus Immunization Date: Aug 22, 2010 History of Pneumococcal: Unknown Pneumococcal Date: Jun 22, 2011 History of Hepatitis B Vaccine: Unknown Multi-Drug Resistant Organisms History of MDRO: No Allergies Coded Allergies: No Known Allergies (Verified , 11/07/16) Home Medications Scheduled Calcium Carbonate-Vitamin D (Calcium 600 + D), 1 TABLET PO DAILY Clopidogrel (Plavix), 75 MG PO DAILY Docusate Sodium (Docusate Sodium), 100 MG PO BID Lisinopril (Zestril), 10 MG PO DAILY Metoprolol Tartrate (Lopressor) (Lopressor), 50 MG PO BID Multivitamin (Multivitamin), 1 TABLET PO DAILY Pantoprazole (Protonix), 40 MG PO DAILY Senna/Docusate Sod (Senokot S), 1 TAB PO DAILY@1200 Simvastatin (Zocor), 40 MG PO QPM Terazosin (Hytrin), 5 MG PO HS Scheduled PRN Acetaminophen (Tylenol), 500 MG PO Q4H PRN for Fever Ipratropium-Albuterol (Duoneb), 1 TREATMENT INH QID PRN for SOB/Wheezing Magnesium Hydroxide (Milk Of Magnesia), 30 ML PO DAILY PRN for Constipation Nitroglycerin (Nitrostat), 0.4 MG UT UD PRN for Chest Pain Polyethylene Glycol 3350 (Miralax), 17 GM PO DAILY PRN for Constipation Review of Systems Cannot obtain from pt who was brought in poorly responsive Physical Exam Vital Signs Date Time Temp Pulse Resp B/P Pulse Ox O2 Delivery O2 Flow Rate FiO2 12/26/16 14:41 67 28 141/56 97 12/26/16 13:35 69 24 143/59 96 BiPAP 6.0 12/26/16 13:14 78 12/26/16 12:11 75 34 155/65 92 BiPAP 12/26/16 11:18 88 94 12/26/16 11:02 66 24 127/59 90 CPAP 6.0 12/26/16 10:47 89 CPAP 12/26/16 10:35 37.2 88 24 164/68 91 Nasal Cannula 4.0 12/26/16 10:35 91 Room Air 3.0 12/26/16 10:30 91 General Appearance: + pertinent finding (Somnolent, obese, elderly male - waks up to tactile stimulus - does not exhibit distress) Head: normocephalic, atraumatic Eyes: normal inspection, PERRL, EOMI ENT: normal ENT inspection, pharynx normal Neck: supple Respiratory/Chest: + pertinent finding (poor b/l air entry - limited exam - no clear crackles or wheezing) Cardiovascular: regular rate, rhythm, + pertinent finding (Pedal edema is present - exam is limited by habitus - heart sounds are faint) Back: normal inspection Extremities/Musculoskelatal: normal capillary refill, + pedal edema Neurologic/Psych: + pertinent finding (Cannot comply with neuro exam - - does not exhibit any overy motor defecits) Skin: normal color, + pertinent finding (Stasis changes in LEs ) Diagnostics Laboratory Results Results Past 24 Hours Test 12/26/16 12:15 12/26/16 12:25 12/26/16 12:29 12/26/16 12:40 Range/Units Bedside Blood Gas pH (LAB) 7.21 7.35-7.45 Bedside Blood Gas pCO2 (LAB) 96 35-46 mmHg Bedside Blood Gas pO2 (LAB) 72 80-95 mmHg Bedside Blood Gas HCO3 (LAB) 39 19-24 meq/L Bedside Blood Gas Total CO2 > 40 24-31 mEq/l Bedside Blood Gas Base Excess (LAB) 11.0 -9-1.8 meq/L Bedside Blood Gas O2 Saturation 89.0 90-95 % White Blood Count 8.12 4.8-10.8 K/uL Red Blood Count 3.78 4.7-6.1 M/uL Hemoglobin 11.7 14.0-18.0 g/dL Hematocrit 39.4 42-52 % Mean Corpuscular Volume 104.2 80-100 fL Mean Corpuscular Hemoglobin 31.0 25-34 pg Mean Corpuscular Hemoglobin Concent 29.7 32-36 g/dl Platelet Count 269 130-400 K/uL Mean Platelet Volume 11.2 7.4-10.4 fL Neutrophils (%) (Auto) 76.2 % Lymphocytes (%) (Auto) 14.2 % Monocytes (%) (Auto) 8.1 % Eosinophils (%) (Auto) 1.2 % Basophils (%) (Auto) 0.2 % Neutrophils # (Auto) 6.18 1.4-6.5 K/uL Lymphocytes # (Auto) 1.15 1.2-3.4 K/uL Monocytes # (Auto) 0.66 0.11-0.59 K/uL Eosinophils # (Auto) 0.10 0-0.5 K/uL Basophils # (Auto) 0.02 0-0.2 K/uL RDW Standard Deviation 55.9 36.4-46.3 fL RDW Coefficient of Variation 14.6 11.5-14.5 % Immature Granulocyte % (Auto) 0.1 % Immature Granulocyte # (Auto) 0.01 0.00-0.02 K/uL Prothrombin Time 10.5 9.0-12.0 SECONDS Prothromb Time International Ratio 1.0 0.9-1.1 Activated Partial Thromboplast Time 25.4 21.0-31.0 SECONDS Partial Thromboplastin Ratio 1.0 Sodium Level 145 136-145 mmol/L Potassium Level 4.2 3.5-5.1 mmol/L Chloride Level 105 98-107 mmol/L Carbon Dioxide Level 39 21-32 mmol/L Anion Gap 1.0 16.0 16-25 mmol/L Blood Urea Nitrogen 20 7-18 mg/dl Creatinine 0.66 0.60-1.40 mg/dl Est Creatinine Clear Calc Drug Dose 133.3 ml/min Estimated GFR () 109.6 Estimated GFR (Non- 94.6 BUN/Creatinine Ratio 29.9 10-20 Random Glucose 106 70-99 mg/dl Calcium Level 8.1 8.5-10.1 mg/dl Total Bilirubin 0.3 0.2-1 mg/dl Aspartate Amino Transf (AST/SGOT) 18 15-37 U/L Alanine Aminotransferase (ALT/SGPT) 27 12-78 U/L Alkaline Phosphatase 91 45-117 U/L Troponin I 0.020 0-0.045 ng/ml Pro-B-Type Natriuretic Peptide 1318 0-900 pg/ml Total Protein 6.5 6.4-8.2 gm/dl Albumin 3.0 3.4-5.0 gm/dl Globulin 3.5 2.5-4.0 gm/dl Albumin/Globulin Ratio 0.9 0.9-2 Bedside Hemoglobin 12.6 14.0-18.0 g/dl Bedside Hematocrit 37 42-52 % Bedside Sodium 144 135-144 mEq/L Bedside Potassium 4.0 3.3-5.0 mEq/L Bedside Chloride 98 101-112 mEq/L Bedside Total CO2 35 24-31 mEq/l Bedside Blood Urea Nitrogen 21 7-18 mg/dl Bedside Creatinine 0.8 0.6-1.3 mg/dl Bedside Glucose (other) 109 70-99 mg/dl Bedside Lactic Acid Venous 0.64 0.90-1.70 mmol/L Bedside Ionized Calcium (Gladys) 1.08 1.12-1.32 mmol/l Urine Color DK YELLOW Urine Appearance CLEAR CLEAR Urine pH 5.0 4.5-7.5 Urine Specific [place] 1.025 1.000-1.030 Urine Protein NEG NEG Urine Glucose (UA) NEG NEG Urine Ketones NEG NEG Urine Occult Blood NEG NEG Urine Nitrite NEG NEG Urine Bilirubin NEG NEG Urine Urobilinogen NEG NEG Urine Leukocyte Esterase NEG NEG Test 12/26/16 13:50 Range/Units Bedside Blood Gas pH (LAB) 7.30 7.35-7.45 Bedside Blood Gas pCO2 (LAB) 79 35-46 mmHg Bedside Blood Gas pO2 (LAB) 59 80-95 mmHg Bedside Blood Gas HCO3 (LAB) 39 19-24 meq/L Bedside Blood Gas Total CO2 > 40 24-31 mEq/l Bedside Blood Gas Base Excess (LAB) 12.0 -9-1.8 meq/L Bedside Blood Gas O2 Saturation 86.0 90-95 % Diagnostic Radiology CT: Moderate cardiomegaly. Prominent pulmonary vasculature. Atelectatic change left base. Trace pleural fluid both lung bases. Multiple old right-sided rib fractures. Normal EKG Impression Assessment and Plan 76 y/o M Hx COPD, diastolic CHF, Obesity hypoventilation, MAX - noncompliant w/ CPAP. Pt presents poorly responsive via EMS. He was hypoxic on route and required Bipap to maintain oxygenation. Initial workup in the ER is consistent with both acute on chronic CHF and hypercarbic respiratory failure. The pt was admitted with a near-identical presentation 10/26. An initial ABG revealed a PH of 7.15 and a CO2 of 95. Following administration of Lasix and Bipap use, he is able to maintain an adequate oxygenation, however , his mentation remains poor and he will be transferred to the ICU for further management. 1) Hypercapnic respiratory failure - Pt placed on Bipap - 02 sat and TV appear adequate however mentation has not recovered - discussed with operating room specialist and pt may require intubation. Remains on Bipap pending repeat EKG eval. Going forward he will need to comply with CPAP to deter future hospitalizations 2) CHF - acute on chronic diastolic - received 80mg Lasix in ER - started on 40mg IV TID - Is/Os, daily weight - clinical volume assessment is difficult due to habitus so that we may need to rely on imaging and oxygenation. Cont ESCOBAR, Bblocker. 3) COPD - Duonebs provided - O2 sat is maintained and no wheezing is audible so that steroids are not merited at present. 4) CAD - no EKG changes or evidence of ACS - cont Statin, Plavix, Bblocker. Full code - Heparin prophylaxis Total time for this admit including critical care time, review of meds, labs, EKG, imaging, records - discussion with operating room specialist and ER attending - 48 min Level of Care Critical Care Resuscitation Status FULL RESUSCITATION VTE Prophylaxis VTE Risk Assessment Done? Y/N: Yes Risk Level: High Given or contraindicated: Unfractionated heparin SQ
[2016-12-26 16:28] LABS: IPAP 18; ISTAT ALLEN TEST Pass; ISTAT ARTERIAL BLOOD GAS HCO3 38 meq/L (19-24); ISTAT ARTERIAL BLOOD GAS PCO2 74 mmHg (35-46); ISTAT ARTERIAL BLOOD GAS PO2 66 mmHg (80-95); ISTAT ARTERIAL BLOOD GAS pH 7.32 (7.35-7.45); ISTAT CARBON DIOXIDE > 40 mEq/l (24-31); ISTAT DELIVERY SYSTEM BIPAP; ISTAT FIO2 0 %; ISTAT RATE 12; ISTAT SITE R Radial
--- NOTE | 2016-12-26 17:13 | Critical Care Consultation ---
Critical Care Consultation Date of Consultation: December 26, 2016. Attending Physician: Miquel Banegas MD Reason for Consultation: lethargy, decreased resp effort History of Present Illness 76-year-old male with past medical history of obstructive sleep apnea noncompliant with CPAP, CHF, CAD ,GERD, history of DVT, history of prostate cancer, hypertension, COPD presented to ER from home via EMS due to poor respiratory effort and lethargy. He was hypoxic on route and required BiPAP to maintain oxygenation His initial ABG revealed a pH of 7.15 and CO2 of 95. Chest x-ray in the ER revealed vascular congestion and he was found to be in hypercarbic respiratory failure. He was placed on BiPAP and received Lasix. He is in an in He was recently admitted to [facility] for a similar presentation and discharged to [facility] and has been refusing to use his CPAP . Per his , he we have been refusing to use his CPAP and canceling his doctor's appointments. She denied any coughing, fevers with chills . Past Medical/Surgical History Obstructive sleep apnea noncompliant with CPAP, congestive heart failure, coronary artery disease, GERD, DVT, history of prostate cancer, hypertension, COPD Family History Patient reports no known family medical history. Social History Smoking Status: Former Smoker Drug Use: none Marital Status: Housing Status: lives with family Occupation Status: retired Allergies Coded Allergies: No Known Allergies (Verified , 11/07/16) Home Medications Scheduled Calcium Carbonate-Vitamin D (Calcium 600 + D), 1 TABLET PO DAILY Clopidogrel (Plavix), 75 MG PO DAILY Docusate Sodium (Docusate Sodium), 100 MG PO BID Lisinopril (Zestril), 10 MG PO DAILY Metoprolol Tartrate (Lopressor) (Lopressor), 50 MG PO BID Multivitamin (Multivitamin), 1 TABLET PO DAILY Pantoprazole (Protonix), 40 MG PO DAILY Senna/Docusate Sod (Senokot S), 1 TAB PO DAILY@1200 Simvastatin (Zocor), 40 MG PO QPM Terazosin (Hytrin), 5 MG PO HS Scheduled PRN Acetaminophen (Tylenol), 500 MG PO Q4H PRN for Fever Ipratropium-Albuterol (Duoneb), 1 TREATMENT INH QID PRN for SOB/Wheezing Magnesium Hydroxide (Milk Of Magnesia), 30 ML PO DAILY PRN for Constipation Nitroglycerin (Nitrostat), 0.4 MG UT UD PRN for Chest Pain Polyethylene Glycol 3350 (Miralax), 17 GM PO DAILY PRN for Constipation Current Inpatient Medications Current Inpatient Medications Medications (Trade) Dose Ordered Sig/Abhijeet Route Start Time Stop Time Status Last Admin Dose Admin Heparin Sodium (Porcine) (Heparin Sq 5000 Unit/0.5ml) 5,000 unit Q8 SQ 12/26/16 22:00 01/25/17 21:59 Acetaminophen (Tylenol Tab) 650 mg Q4H PRN PO 12/26/16 14:00 01/25/17 13:59 Nitroglycerin (Nitroglycerin 2% Oint) 1 inch Q6 EXT 12/26/16 18:00 01/25/17 17:59 Ondansetron HCl (Zofran Inj) 4 mg Q6H PRN IV 12/26/16 14:00 01/25/17 13:59 Morphine Sulfate (MoRPHine SULFATE INJ) 2 mg Q2H PRN IV 12/26/16 14:00 01/09/17 13:59 Albuterol/ Ipratropium (Duoneb) 3 ml Q6R PRN INH 12/26/16 14:00 01/25/17 13:59 Clopidogrel Bisulfate (plAVix TAB) 75 mg DAILY PO 12/27/16 09:00 01/26/17 08:59 Docusate Sodium (coLACE CAP) 100 mg BID PO 12/26/16 21:00 01/25/17 20:59 Lisinopril (Zestril Tab) 10 mg DAILY PO 12/27/16 09:00 01/26/17 08:59 Magnesium Hydroxide (Milk Of Magnesia Susp) 30 ml DAILY PRN PO 12/26/16 14:45 01/25/17 14:44 Metoprolol Tartrate (Lopressor Tab) 50 mg BID PO 12/26/16 21:00 01/25/17 20:59 Nitroglycerin (Nitrostat Tab) 0.4 mg UD PRN UT 12/26/16 14:45 01/25/17 14:44 Pantoprazole Sodium (Protonix Tab) 40 mg DAILY PO 12/27/16 09:00 01/26/17 08:59 Senna/Docusate Sodium (Senokot S Tab) 1 tab DAILY@1200 PO 12/27/16 12:00 01/26/17 11:59 Simvastatin (Zocor Tab) 40 mg QPM PO 12/26/16 21:00 01/25/17 20:59 Terazosin HCl 5 mg 5 mg HS PO 12/26/16 21:00 01/25/17 20:59 Furosemide/Syringe (Lasix Inj/ Syringe) 4 ml @ 4 mls/min BID17 IV 12/26/16 21:00 01/25/17 20:59 Potassium Chloride (Klor-Con M10) 20 meq BID PO 12/26/16 21:00 01/25/17 20:59 Review of Systems Unable to obtain as patient is very lethargic. Physical Exam Date Time Temp Pulse Resp B/P Pulse Ox O2 Delivery O2 Flow Rate FiO2 12/26/16 14:41 67 28 141/56 97 12/26/16 13:35 69 24 143/59 96 BiPAP 6.0 12/26/16 13:14 78 12/26/16 12:11 75 34 155/65 92 BiPAP 12/26/16 11:18 88 94 12/26/16 11:02 66 24 127/59 90 CPAP 6.0 12/26/16 10:47 89 CPAP 12/26/16 10:35 37.2 88 24 164/68 91 Nasal Cannula 4.0 12/26/16 10:35 91 Room Air 3.0 12/26/16 10:30 91 General Appearance: mild distress, obese Head: normocephalic Eyes: EOMI Respiratory: clear to auscultation, other (diminished breath sounds) Cardiovasular: regular rate/rhythm, normal S1S2, no murmur, normal peripheral pulses Abdomen: non tender, normal bowel sounds Lower Extremities: edema Neuro: lethargic Laboratory Results Last 24 Hours Test 12/26/16 12:15 12/26/16 12:25 12/26/16 12:29 12/26/16 12:40 Bedside Blood Gas pH (LAB) 7.21 Bedside Blood Gas pCO2 (LAB) 96 mmHg Bedside Blood Gas pO2 (LAB) 72 mmHg Bedside Blood Gas HCO3 (LAB) 39 meq/L Bedside Blood Gas Total CO2 > 40 mEq/l Bedside Blood Gas Base Excess (LAB) 11.0 meq/L Bedside Blood Gas O2 Saturation 89.0 % White Blood Count 8.12 K/uL Red Blood Count 3.78 M/uL Hemoglobin 11.7 g/dL Hematocrit 39.4 % Mean Corpuscular Volume 104.2 fL Mean Corpuscular Hemoglobin 31.0 pg Mean Corpuscular Hemoglobin Concent 29.7 g/dl Platelet Count 269 K/uL Mean Platelet Volume 11.2 fL Neutrophils (%) (Auto) 76.2 % Lymphocytes (%) (Auto) 14.2 % Monocytes (%) (Auto) 8.1 % Eosinophils (%) (Auto) 1.2 % Basophils (%) (Auto) 0.2 % Neutrophils # (Auto) 6.18 K/uL Lymphocytes # (Auto) 1.15 K/uL Monocytes # (Auto) 0.66 K/uL Eosinophils # (Auto) 0.10 K/uL Basophils # (Auto) 0.02 K/uL RDW Standard Deviation 55.9 fL RDW Coefficient of Variation 14.6 % Immature Granulocyte % (Auto) 0.1 % Immature Granulocyte # (Auto) 0.01 K/uL Prothrombin Time 10.5 SECONDS Prothromb Time International Ratio 1.0 Activated Partial Thromboplast Time 25.4 SECONDS Partial Thromboplastin Ratio 1.0 Sodium Level 145 mmol/L Potassium Level 4.2 mmol/L Chloride Level 105 mmol/L Carbon Dioxide Level 39 mmol/L Anion Gap 1.0 mmol/L 16.0 mmol/L Blood Urea Nitrogen 20 mg/dl Creatinine 0.66 mg/dl Est Creatinine Clear Calc Drug Dose 133.3 ml/min Estimated GFR () 109.6 Estimated GFR (Non- 94.6 BUN/Creatinine Ratio 29.9 Random Glucose 106 mg/dl Calcium Level 8.1 mg/dl Total Bilirubin 0.3 mg/dl Aspartate Amino Transf (AST/SGOT) 18 U/L Alanine Aminotransferase (ALT/SGPT) 27 U/L Alkaline Phosphatase 91 U/L Troponin I 0.020 ng/ml Pro-B-Type Natriuretic Peptide 1318 pg/ml Total Protein 6.5 gm/dl Albumin 3.0 gm/dl Globulin 3.5 gm/dl Albumin/Globulin Ratio 0.9 Bedside Hemoglobin 12.6 g/dl Bedside Hematocrit 37 % Bedside Sodium 144 mEq/L Bedside Potassium 4.0 mEq/L Bedside Chloride 98 mEq/L Bedside Total CO2 35 mEq/l Bedside Blood Urea Nitrogen 21 mg/dl Bedside Creatinine 0.8 mg/dl Bedside Glucose (other) 109 mg/dl Bedside Lactic Acid Venous 0.64 mmol/L Bedside Ionized Calcium (Gladys) 1.08 mmol/l Urine Color DK YELLOW Urine Appearance CLEAR Urine pH 5.0 Urine Specific [place] 1.025 Urine Protein NEG Urine Glucose (UA) NEG Urine Ketones NEG Urine Occult Blood NEG Urine Nitrite NEG Urine Bilirubin NEG Urine Urobilinogen NEG Urine Leukocyte Esterase NEG Test 12/26/16 13:50 12/26/16 16:16 Bedside Blood Gas pH (LAB) 7.30 7.32 Bedside Blood Gas pCO2 (LAB) 79 mmHg 74 mmHg Bedside Blood Gas pO2 (LAB) 59 mmHg 66 mmHg Bedside Blood Gas HCO3 (LAB) 39 meq/L 38 meq/L Bedside Blood Gas Total CO2 > 40 mEq/l > 40 mEq/l Bedside Blood Gas Base Excess (LAB) 12.0 meq/L 11.0 meq/L Bedside Blood Gas O2 Saturation 86.0 % 90.0 % Blood Gas Sample Site R Radial Arun Test Pass Oxygen Delivery Device BIPAP Bedside Oxygen Rate (breaths/min) 12 Bedside FiO2 0 % Blood Gas IPAP 18 Diagnostic Results CHEST ONE VIEW PORTABLE CLINICAL HISTORY: EVALUATE RESPIRATORY DISTRESS. DYSPNEA dyspnea COMPARISON STUDY: 11/10/2016 FINDINGS: Moderate cardiomegaly. Prominent pulmonary vasculature. Atelectatic change left base. Trace pleural fluid both lung bases. Multiple old right-sided rib fractures. IMPRESSION: Congestive failure. Assessment & Plan 76-year-old male with past medical history of obstructive sleep apnea noncompliant with CPAP, CHF, CAD ,GERD, history of DVT, history of prostate cancer, hypertension, COPD presented to ER from home via EMS due to poor respiratory effort and lethargy. He had received 80 mg of Lasix in the ER and placed on BiPAP. He was transferred to the ICU for further management Neuro: - Lethargic but is oriented 3 - sedation:none - pain control with morphine as needed Resp: Acute hypoxic hypercapnic respiratory failure: Likely secondary to noncompliance with CPAP/obesity hypoventilation CXR: Congestive failure. Initial ABG pH of 7.25 and CO2 95 - Placed on BiPAP 18/5 - Repeat ABG: PH 7.315 ,PCO2 73.6, PO2 66 - Duonebs as needed - Repeat ABG COPD: - DuoNeb's as needed CVS: Acute on chronic heart failure: - CXR: Congestive failure. - Echo 10/29: * Normal biventricular systolic function. EF 65-70% * Mild left ventricular hypertrophy. * Normal chamber dimensions. * Probable mild aortic stenosis. * Trace aortic regurgitation. - Continue Lasix - Strict I's and O's with daily weights Coronary artery disease: - EKG: Normal sinus rhythm Nonspecific T wave abnormality - Initial troponin negative, troponins trended - Continue Plavix, metoprolol, lisinopril, simvastatin Hypertension: - Continue metoprolol and lisinopril GI/FEN: GERD: Continue Protonix Renal/: -UA unremarkable - Monitor I's and O's - History of prostate cancer- stable Heme: - History of DVT DVT prophylaxis: Heparin subcutaneous Full code Disposition: Admitted to ICU, monitor mental status and respiration Resident Physician Supervision Note/Calender Wind Up Tender Attending I interviewed and examined the patient. Discussed with Dr. Pizarro and agree with findings and plan as documented in the note. ABG is improving with bipap and lasix but he is still unable to stay awake for long. He has a gag reflex presently. He may require NGT for meds. Agree with lasix and bipap - inspiratory pressures increased to 18 - will exchange bipap devices in order to better evaluate TV's - discussed with RT regarding this. Would repeat ABG if clinical status changes. Per Dr. Pizarro, did not think he would want intubation or CPR but seemed reluctant to make him DNR. If he looks like he needs to be intubated, I will call his to discuss again if time allows. Otherwise, I will discuss with her tomorrow. Documented By: Charlotte Griggs Resident Tracking Resident Involvement: Resident Care Provided Care Provided: Adult Hospital Medicine
[2016-12-26] MEDS: NITROGLYCERIN 2% OINTMENT 30GM TUBE EXT SCH ×2 (18:15→23:47)
[2016-12-26] MEDS ORDERED: METOPROLOL TARTRATE 1 MG/ML VIAL IV PRN (19:45)
--- NOTE | 2016-12-26 20:49 | DIAGNOSTIC IMAGING REPORT ---
CT SCAN OF THE BRAIN WITHOUT IV CONTRAST CLINICAL HISTORY: Change in mental status. COMPARISON STUDY: CT of the brain dated 11/08/2016. TECHNIQUE: Unenhanced axial CT scan of the brain is performed from the vertex to the skull base. CT DOSE: 751.47 mGy.cm FINDINGS: Brain parenchyma: There are age-related involutional changes noting mild to moderate patchy subcortical and periventricular microangiopathic change. A small focus of right frontal encephalomalacia is unchanged and consistent with a remote infarct. There is no hemorrhage, mass effect, or evidence of acute territorial ischemia by CT criteria. Noonan-white matter is preserved. No extra-axial fluid collection is seen. Ventricles, sulci, cisterns: Prominent secondary to involutional change. Intracranial vasculature: There is atherosclerotic calcification of the cavernous carotid and vertebral arteries. Calvarium: Unremarkable. Sinuses and mastoids: The visualized paranasal sinuses are clear. The mastoid air cells are well pneumatized. Orbits: The bony orbits are grossly intact. IMPRESSION: There is no hemorrhage, mass effect, or evidence of acute territorial ischemia by CT criteria. Electronically signed by: Humberto Lynch M.D. 12/26/2016 8:48 PM Dictated Date/Time: 12/26/2016 8:45 PM
[2016-12-26] MEDS: METOPROLOL TARTRATE 50 MG TAB PO SCH (21:00)
[2016-12-26] MEDS: POTASSIUM CHLORIDE 10 MEQ TABCR PO SCH (21:00)
[2016-12-26] MEDS: SIMVASTATIN 40 MG TAB PO SCH (21:00)
[2016-12-26] MEDS: DOCUSATE SODIUM 100 MG CAP PO SCH (21:00)
[2016-12-26] MEDS: FUROSEMIDE INJ 40 MG in SYRINGE 0 ML IV SCH (21:56)
[2016-12-26] MEDS: HEPARIN SOD 5000 UNIT/0.5 ML CARP SQ SCH (21:58)
[2016-12-26 23:37] LABS: IPAP 18; ISTAT ALLEN TEST Pass; ISTAT ARTERIAL BLOOD GAS HCO3 43 meq/L (19-24); ISTAT ARTERIAL BLOOD GAS PCO2 66 mmHg (35-46); ISTAT ARTERIAL BLOOD GAS PO2 66 mmHg (80-95); ISTAT ARTERIAL BLOOD GAS pH 7.42 (7.35-7.45); ISTAT CARBON DIOXIDE > 40 mEq/l (24-31); ISTAT DELIVERY SYSTEM BIPAP; ISTAT FIO2 35 %; ISTAT RATE 20; ISTAT SITE R Radial
[2016-12-27] VITALS (17 sets, daily range): BP systolic 125–164; BP diastolic 48–71; PULSE 58–86; TEMP 36.7–37.6; O2SAT 91–96
[2016-12-27] MEDS: NITROGLYCERIN 2% OINTMENT 30GM TUBE EXT SCH ×4 (05:44→23:51)
[2016-12-27] MEDS: HEPARIN SOD 5000 UNIT/0.5 ML CARP SQ SCH ×3 (05:48→22:31)
[2016-12-27 06:31] LABS: BASO % 0.2 %; BASO ABS # 0.02 K/uL (0-0.2); COMPLETE YES; EOS % 1.4 %; HEMATOCRIT 39.7 % (42-52); IG% 0.1 %; LYMPH % 14.3 %; MEAN CELL VOLUME 104.5 fL (80-100); MEAN CORPUSCULAR HEMOGLOBIN 31.3 pg (25-34); MONO % 10.4 %; NEUT % 73.6 %; PLATELET COUNT 241 K/uL (130-400)
--- NOTE | 2016-12-27 07:14 | DIAGNOSTIC IMAGING REPORT ---
CHEST ONE VIEW PORTABLE CLINICAL HISTORY: Pulmonary edema COMPARISON STUDY: 12/26/2016 FINDINGS: The heart remains enlarged. There is mild central pulmonary vascular congestion. There is slight improvement of aeration the lung bases. There are old right-sided rib fractures. No significant pleural effusions are evident on this AP portable study.[ IMPRESSION: Cardiomegaly with mild central pulmonary vascular congestion. Slight interval improvement in the aeration of the lung bases Electronically signed by: Marcelino Kim M.D. 12/27/2016 7:13 AM Dictated Date/Time: 12/27/2016 7:12 AM
[2016-12-27 07:25] LABS: BUN/CREATININE RATIO 27.5 (10-20); CALCIUM 8.1 mg/dl (8.5-10.1); CREATININE 0.76 mg/dl (0.60-1.40); MAGNESIUM 2.5 mg/dl (1.8-2.4); PHOSPHORUS 3.3 mg/dl (2.5-4.9); POTASSIUM 3.6 mmol/L (3.5-5.1)
--- NOTE | 2016-12-27 07:45 | Hospitalist Progress Note ---
Hospitalist Progress Note Date of Service December 27, 2016. Subjective Pt evaluation today including: conversation w/ patient, physical exam, chart review, lab review, review of studies Pain: none PO Intake: NPO Voiding: pearson catheter in place The patient was seen and examined this morning. Pt reports he feels much better today than yesterday, he feels he slept well with the mask overnight. His legs seem less swollen today. He has no other acute complaints. He denies dizziness , lightheadedness, chest pain, palpitations, shortness of breath, cough, abd pain, n/v/d/c. Reports he hasn't eaten since yesterday morning and that he hasn' t had a bm since admission. He notes some pain in his right ankle, lower calf, but this is chronic. ROS: 10 point ROS was reviewed and otherwise negative. Objective Vital Signs Date Time Temp Pulse Resp B/P Pulse Ox O2 Delivery O2 Flow Rate FiO2 12/27/16 06:10 74 94 35 12/27/16 06:00 86 16 137/67 92 BiPAP 35 12/27/16 04:00 92 BiPAP 35 12/27/16 04:00 37.3 71 20 136/57 92 BiPAP 35 12/27/16 02:35 67 93 35 12/27/16 02:00 58 22 125/51 94 BiPAP 12/27/16 00:01 37.6 72 31 141/48 94 BiPAP 12/26/16 23:59 94 BiPAP 35 12/26/16 23:43 74 98 35 12/26/16 22:00 67 20 138/55 92 BiPAP 12/26/16 20:00 93 BiPAP 35 12/26/16 20:00 37.4 60 24 149/73 92 BiPAP 12/26/16 19:36 36.7 80 33 152/73 95 BiPAP 4.0 12/26/16 19:30 72 98 35 12/26/16 18:02 59 13 145/55 95 BiPAP 12/26/16 17:31 60 15 153/59 94 BiPAP 12/26/16 17:01 64 11 130/46 94 BiPAP 12/26/16 16:44 64 18 155/57 93 BiPAP 12/26/16 16:30 65 94 4.0 12/26/16 15:52 81 25 158/68 95 BiPAP 12/26/16 15:36 36.4 91 33 189/80 99 BiPAP 12/26/16 14:41 67 28 141/56 97 12/26/16 13:35 69 24 143/59 96 BiPAP 6.0 12/26/16 13:14 78 12/26/16 12:11 75 34 155/65 92 BiPAP 12/26/16 11:18 88 94 12/26/16 11:02 66 24 127/59 90 CPAP 6.0 12/26/16 10:47 89 CPAP 12/26/16 10:35 37.2 88 24 164/68 91 Nasal Cannula 4.0 12/26/16 10:35 91 Room Air 3.0 12/26/16 10:30 91 Physical Exam General Appearance: WD/WN, no apparent distress, + obese Eyes: PERRL, EOMI ENT: hearing grossly normal, pharynx normal Neck: supple, no JVD Respiratory/Chest: chest non-tender, no respiratory distress, no accessory muscle use, + pertinent finding (On 2 L via NC, faint crackles bibasilarly, otherwise clear breath sounds.) Cardiovascular: regular rate, rhythm, no murmur Abdomen: normal bowel sounds, non tender, soft, + pertinent finding (+tympanic but nondistended) Extremities: non-tender, + pertinent finding (+ chronic venous stasis changes on LLE, + pain with palpation of R posterior ankle ) Neurologic/Psychiatric: alert, normal mood/affect, oriented x 3 Skin: normal color, warm/dry Laboratory Results Last 24 Hours Test 12/26/16 12:15 12/26/16 12:25 12/26/16 12:29 12/26/16 12:40 Bedside Blood Gas pH (LAB) 7.21 Bedside Blood Gas pCO2 (LAB) 96 mmHg Bedside Blood Gas pO2 (LAB) 72 mmHg Bedside Blood Gas HCO3 (LAB) 39 meq/L Bedside Blood Gas Total CO2 > 40 mEq/l Bedside Blood Gas Base Excess (LAB) 11.0 meq/L Bedside Blood Gas O2 Saturation 89.0 % White Blood Count 8.12 K/uL Red Blood Count 3.78 M/uL Hemoglobin 11.7 g/dL Hematocrit 39.4 % Mean Corpuscular Volume 104.2 fL Mean Corpuscular Hemoglobin 31.0 pg Mean Corpuscular Hemoglobin Concent 29.7 g/dl Platelet Count 269 K/uL Mean Platelet Volume 11.2 fL Neutrophils (%) (Auto) 76.2 % Lymphocytes (%) (Auto) 14.2 % Monocytes (%) (Auto) 8.1 % Eosinophils (%) (Auto) 1.2 % Basophils (%) (Auto) 0.2 % Neutrophils # (Auto) 6.18 K/uL Lymphocytes # (Auto) 1.15 K/uL Monocytes # (Auto) 0.66 K/uL Eosinophils # (Auto) 0.10 K/uL Basophils # (Auto) 0.02 K/uL RDW Standard Deviation 55.9 fL RDW Coefficient of Variation 14.6 % Immature Granulocyte % (Auto) 0.1 % Immature Granulocyte # (Auto) 0.01 K/uL Prothrombin Time 10.5 SECONDS Prothromb Time International Ratio 1.0 Activated Partial Thromboplast Time 25.4 SECONDS Partial Thromboplastin Ratio 1.0 Sodium Level 145 mmol/L Potassium Level 4.2 mmol/L Chloride Level 105 mmol/L Carbon Dioxide Level 39 mmol/L Anion Gap 1.0 mmol/L 16.0 mmol/L Blood Urea Nitrogen 20 mg/dl Creatinine 0.66 mg/dl Est Creatinine Clear Calc Drug Dose 133.3 ml/min Estimated GFR () 109.6 Estimated GFR (Non- 94.6 BUN/Creatinine Ratio 29.9 Random Glucose 106 mg/dl Calcium Level 8.1 mg/dl Phosphorus Level 4.1 mg/dl Total Bilirubin 0.3 mg/dl Aspartate Amino Transf (AST/SGOT) 18 U/L Alanine Aminotransferase (ALT/SGPT) 27 U/L Alkaline Phosphatase 91 U/L Troponin I 0.020 ng/ml Pro-B-Type Natriuretic Peptide 1318 pg/ml Total Protein 6.5 gm/dl Albumin 3.0 gm/dl Globulin 3.5 gm/dl Albumin/Globulin Ratio 0.9 Bedside Hemoglobin 12.6 g/dl Bedside Hematocrit 37 % Bedside Sodium 144 mEq/L Bedside Potassium 4.0 mEq/L Bedside Chloride 98 mEq/L Bedside Total CO2 35 mEq/l Bedside Blood Urea Nitrogen 21 mg/dl Bedside Creatinine 0.8 mg/dl Bedside Glucose (other) 109 mg/dl Bedside Lactic Acid Venous 0.64 mmol/L Bedside Ionized Calcium (Gladys) 1.08 mmol/l Urine Color DK YELLOW Urine Appearance CLEAR Urine pH 5.0 Urine Specific [place] 1.025 Urine Protein NEG Urine Glucose (UA) NEG Urine Ketones NEG Urine Occult Blood NEG Urine Nitrite NEG Urine Bilirubin NEG Urine Urobilinogen NEG Urine Leukocyte Esterase NEG Test 12/26/16 13:50 12/26/16 16:16 12/26/16 22:23 12/26/16 22:28 Bedside Blood Gas pH (LAB) 7.30 7.32 7.42 Bedside Blood Gas pCO2 (LAB) 79 mmHg 74 mmHg 66 mmHg Bedside Blood Gas pO2 (LAB) 59 mmHg 66 mmHg 66 mmHg Bedside Blood Gas HCO3 (LAB) 39 meq/L 38 meq/L 43 meq/L Bedside Blood Gas Total CO2 > 40 mEq/l > 40 mEq/l > 40 mEq/l Bedside Blood Gas Base Excess (LAB) 12.0 meq/L 11.0 meq/L 19.0 meq/L Bedside Blood Gas O2 Saturation 86.0 % 90.0 % 92.0 % Blood Gas Sample Site R Radial R Radial Arun Test Pass Pass Oxygen Delivery Device BIPAP BIPAP Bedside Oxygen Rate (breaths/min) 12 20 Bedside FiO2 0 % 35 % Blood Gas IPAP 18 18 Troponin I 0.028 ng/ml Test 12/27/16 06:13 12/27/16 06:17 White Blood Count 8.40 K/uL Red Blood Count 3.80 M/uL Hemoglobin 11.9 g/dL Hematocrit 39.7 % Mean Corpuscular Volume 104.5 fL Mean Corpuscular Hemoglobin 31.3 pg Mean Corpuscular Hemoglobin Concent 30.0 g/dl Platelet Count 241 K/uL Mean Platelet Volume 11.0 fL Neutrophils (%) (Auto) 73.6 % Lymphocytes (%) (Auto) 14.3 % Monocytes (%) (Auto) 10.4 % Eosinophils (%) (Auto) 1.4 % Basophils (%) (Auto) 0.2 % Neutrophils # (Auto) 6.18 K/uL Lymphocytes # (Auto) 1.20 K/uL Monocytes # (Auto) 0.87 K/uL Eosinophils # (Auto) 0.12 K/uL Basophils # (Auto) 0.02 K/uL RDW Standard Deviation 56.8 fL RDW Coefficient of Variation 14.8 % Immature Granulocyte % (Auto) 0.1 % Immature Granulocyte # (Auto) 0.01 K/uL Sodium Level 147 mmol/L Potassium Level 3.6 mmol/L Chloride Level 103 mmol/L Carbon Dioxide Level 41 mmol/L Anion Gap 3.0 mmol/L Blood Urea Nitrogen 21 mg/dl Creatinine 0.76 mg/dl Est Creatinine Clear Calc Drug Dose 109.0 ml/min Estimated GFR () 103.4 Estimated GFR (Non- 89.2 BUN/Creatinine Ratio 27.5 Random Glucose 76 mg/dl Calcium Level 8.1 mg/dl Phosphorus Level 3.3 mg/dl Magnesium Level 2.5 mg/dl Troponin I 0.019 ng/ml Bedside Glucose 73 mg/dl Assessment and Plan 76 yo M with PMHX of COPD, Acute on chronic diastolic heart failure, MAX noncompliance with Bipap, CAD, HTN, hx of DVT, GERD and prostate cancer Metabolic encephalopathy secondary to acute on chronic hypercapnic respiratory failure and obesity hypoventilation syndrome. MAX with CPAP noncompliance - Transfer out of ICU to med/surg - patient is a chronic retainer: Initial ABG pH of 7.25 and CO2 95 - Recently discharged by myself and Dr. Bain in early November for very similar presentation , and was discharged to [facility] for noc ox and CPAP. Pt is not aware of having noc ox there, so will order for tonight. - Repeat ABG: pH has improved to 7.42, CO2 >40 - pt is claustrophobic and reports trying several types of masks in the past. ? If the patient needs medicated with something to help him sleep at night and for calming effect w hx of claustrophobia. Benzos are certainly not an option, could try herbal supplement with melatonin. - Discussion regarding weight loss was held with the patient COPD- -Duo nebs every 4 hours as needed for wheezing Acute on Chronic diastolic heart failure - Continue Diamox 250 mg daily - Lasix 40 mg IV BID, continue, per pt report legs are less swollen - monitor renal function and electrolytes Severe depressive episode - occured after his son - He was evaluated by Psychiatry during last admission; suggested a trial of effexor 37.5 mg, not started at present Coronary artery disease -Continue Plavix 75 mg daily, lisinopril 10 mg daily, metoprolol 50 mg twice daily, simvastatin 80 mg daily GERD -Continue pantoprazole 40 mg daily History of DVT-cont Plavix History of prostate cancer-stable HTN - Continue metoprolol 50 mg PO daily and lisinopril 10 mg daily DVT ppx: teds, scds, plavix CODE STATUS: FULL CODE Disposition: From home, will ask CM to assist with discharge planning
[2016-12-27] MEDS: DOCUSATE SODIUM 100 MG CAP PO SCH ×2 (10:21→22:12)
[2016-12-27] MEDS: CLOPIDOGREL BISULFATE 75 MG TAB PO SCH (10:21)
[2016-12-27] MEDS: PANTOprazole SOD 40 MG TAB PO SCH (10:21)
[2016-12-27] MEDS: FUROSEMIDE INJ 40 MG in SYRINGE 0 ML IV SCH ×2 (10:21→17:41)
[2016-12-27] MEDS: METOPROLOL TARTRATE 50 MG TAB PO SCH ×2 (10:22→22:13)
[2016-12-27] MEDS: POTASSIUM CHLORIDE 10 MEQ TABCR PO SCH ×2 (10:22→22:11)
[2016-12-27] MEDS: DOCUSATE SODIUM/SENNA 50/8.6MG TAB PO SCH (10:22)
[2016-12-27] MEDS: LISINOPRIL 10 MG TAB PO SCH (10:22)
--- NOTE | 2016-12-27 11:26 | Critical Care Progress Note ---
Critical Care Progress Note Date of Service December 27, 2016. ICU Day ICU Day Number: [address] Anson Dougherty 76-year-old male with past medical history of obstructive sleep apnea noncompliant with CPAP, CHF, CAD ,GERD, history of DVT, history of prostate cancer, hypertension, COPD presented to ER from home via EMS due to poor respiratory effort and lethargy. He was hypoxic on route and required BiPAP to maintain oxygenation . He was transferred to ICU as he seemed to be lethargic and had minimal resp effort. He was mainatined on BIPAP overnight and he tolerated it well . alert , oriented today. feels lot better and states that he understands that his hospitalization is mainly due to non compliance. States that he would try to use CPAP when discharged but zambrano shad difficulty with the masks Objective General Appearance: Obese, no distress, BIPAP Head: normocephalic, non traumatic Eyes: EOMI, Respiratory: BIPAP in place . clear to auscultation, other (diminished breath sounds) Cardiovasular: regular rate/rhythm, normal S1S2, no murmur, normal peripheral pulses Abdomen: non tender, normal bowel sounds Lower Extremities: bilateral lower extremity edema Neuro: awake, alert and oriented X3 Assessment & Plan 76-year-old male with past medical history of obstructive sleep apnea noncompliant with CPAP, CHF, CAD ,GERD, history of DVT, history of prostate cancer, hypertension, COPD presented to ER from home via EMS due to poor respiratory effort and lethargy. He had received 80 mg of Lasix in the ER and placed on BiPAP. He was transferred to the ICU for further management Neuro: - alert and oriented X3 - sedation:none - Head CT yesterday negative Resp: Acute hypoxic hypercapnic respiratory failure: Likely secondary to noncompliance with CPAP/obesity hypoventilation CXR: Congestive failure. Initial ABG pH of 7.25 and CO2 95 - Duonebs as needed - Continue BIPAP several admissions in the past with similar presentation due to noncompliance to CPAP. Reiterated about CPAP use. Verbalizes understanding. COPD: - DuoNeb's as needed CVS: Acute on chronic heart failure: - CXR: Congestive failure. - Echo 10/29: * Normal biventricular systolic function. EF 65-70% * Mild left ventricular hypertrophy. * Normal chamber dimensions. * Probable mild aortic stenosis. * Trace aortic regurgitation. - Continue Lasix - Strict I's and O's with daily weights Coronary artery disease: - EKG: Normal sinus rhythm Nonspecific T wave abnormality - Initial troponin negative, troponins trended - Continue Plavix, metoprolol, lisinopril, simvastatin Hypertension: - Continue metoprolol and lisinopril GI/FEN: GERD: Continue Protonix Renal/: -UA unremarkable - Monitor I's and O's - History of prostate cancer- stable Heme: - History of DVT - stable DVT prophylaxis: Heparin subcutaneous DNR Disposition: transfer to tele Resident Physician Supervision Note/Human Performance Technologist I interviewed and examined the patient. Discussed with Dr. Pizarro and agree with findings and plan as documented in the note. Any exceptions or clarifications are listed here: The patient's care was discussed in detail on multidisciplinary rounds today. I have reviewed the VS, I/O, notes, meds, labs, micro, imaging and other reports. He was awake reading the newspaper while wearing the bipap when I saw him this morning and was not able to tell me what let up to the events of yesterday. His mental status is definitely improved. Lungs with decreased BS throughout. Still with significant bilateral LE edema. ABG improved and he has been diuresing well. He may benefit from acetazolamide but should compensate for his metabolic alkalosis with time. CT brain without acute process. He has already been transferred to PCU - discussed with Dr. Bain. Terazosin resumed. DNR confirmed. Documented By: Charlotte Griggs Consults & Procedures Consultants: Human Performance Technologist Procedures: None Data Medications: Current Inpatient Medications Medications (Trade) Dose Ordered Sig/Abhijeet Route Start Time Stop Time Status Last Admin Dose Admin Heparin Sodium (Porcine) (Heparin Sq 5000 Unit/0.5ml) 5,000 unit Q8 SQ 12/26/16 22:00 01/25/17 21:59 12/27/16 05:48 5,000 UNIT Acetaminophen (Tylenol Tab) 650 mg Q4H PRN PO 12/26/16 14:00 01/25/17 13:59 Nitroglycerin (Nitroglycerin 2% Oint) 1 inch Q6 EXT 12/26/16 18:00 01/25/17 17:59 12/27/16 10:53 1 INCH Ondansetron HCl (Zofran Inj) 4 mg Q6H PRN IV 5/17/17 14:00 01/25/17 13:59 Albuterol/ Ipratropium (Duoneb) 3 ml Q6R PRN INH 12/26/16 14:00 01/25/17 13:59 Clopidogrel Bisulfate (plAVix TAB) 75 mg DAILY PO 12/27/16 09:00 01/26/17 08:59 12/27/16 10:21 75 MG Docusate Sodium (coLACE CAP) 100 mg BID PO 12/26/16 21:00 01/25/17 20:59 12/27/16 10:21 100 MG Lisinopril (Zestril Tab) 10 mg DAILY PO 12/27/16 09:00 01/26/17 08:59 12/27/16 10:22 10 MG Magnesium Hydroxide (Milk Of Magnesia Susp) 30 ml DAILY PRN PO 12/26/16 14:45 01/25/17 14:44 Metoprolol Tartrate (Lopressor Tab) 50 mg BID PO 12/26/16 21:00 01/25/17 20:59 12/27/16 10:22 50 MG Nitroglycerin (Nitrostat Tab) 0.4 mg UD PRN UT 12/26/16 14:45 01/25/17 14:44 Pantoprazole Sodium (Protonix Tab) 40 mg DAILY PO 12/27/16 09:00 01/26/17 08:59 12/27/16 10:21 40 MG Senna/Docusate Sodium (Senokot S Tab) 1 tab DAILY@1200 PO 12/27/16 12:00 01/26/17 11:59 12/27/16 10:22 1 TAB Simvastatin 40 mg 40 mg QPM PO 12/26/16 21:00 01/25/17 20:59 Furosemide/Syringe (Lasix Inj/ Syringe) 4 ml @ 4 mls/min BID17 IV 12/26/16 21:00 01/25/17 20:59 12/27/16 10:21 4 MLS/MIN Potassium Chloride (Klor-Con M10) 20 meq BID PO 12/26/16 21:00 01/25/17 20:59 12/27/16 10:22 20 MEQ Metoprolol Tartrate (Lopressor Iv) 5 mg Q6 PRN IV 12/26/16 19:45 01/25/17 19:44 I & O: 24-Hour Column 12/27/16 07:59 Output Total 2400 ml Balance -2400 ml Vital Signs: Date Time Temp Pulse Resp B/P Pulse Ox O2 Delivery O2 Flow Rate FiO2 12/27/16 10:56 36.9 12/27/16 10:01 72 22 164/63 93 BiPAP 35 12/27/16 09:01 75 20 145/63 95 BiPAP 35 12/27/16 08:01 37.6 75 16 158/63 91 BiPAP 35 12/27/16 08:00 BiPAP 35 12/27/16 07:56 64 93 35 12/27/16 07:01 73 18 154/61 92 BiPAP 35 12/27/16 06:10 74 94 35 12/27/16 06:00 86 16 137/67 92 BiPAP 35 12/27/16 04:00 92 BiPAP 35 12/27/16 04:00 37.3 71 20 136/57 92 BiPAP 35 12/27/16 02:35 67 93 35 12/27/16 02:00 58 22 125/51 94 BiPAP 12/27/16 00:01 37.6 72 31 141/48 94 BiPAP 12/26/16 23:59 94 BiPAP 35 12/26/16 23:43 74 98 35 12/26/16 22:00 67 20 138/55 92 BiPAP 12/26/16 20:00 93 BiPAP 35 12/26/16 20:00 37.4 60 24 149/73 92 BiPAP 12/26/16 19:36 36.7 80 33 152/73 95 BiPAP 4.0 12/26/16 19:30 72 98 35 12/26/16 18:02 59 13 145/55 95 BiPAP 12/26/16 17:31 60 15 153/59 94 BiPAP 12/26/16 17:01 64 11 130/46 94 BiPAP 12/26/16 16:44 64 18 155/57 93 BiPAP 12/26/16 16:30 65 94 4.0 12/26/16 15:52 81 25 158/68 95 BiPAP 12/26/16 15:36 36.4 91 33 189/80 99 BiPAP 12/26/16 14:41 67 28 141/56 97 12/26/16 13:35 69 24 143/59 96 BiPAP 6.0 12/26/16 13:14 78 12/26/16 12:11 75 34 155/65 92 BiPAP 12/26/16 11:18 88 94 Laboratory Results: Last 24 Hours Test 12/26/16 12:15 12/26/16 12:25 12/26/16 12:29 12/26/16 12:40 Bedside Blood Gas pH (LAB) 7.21 Bedside Blood Gas pCO2 (LAB) 96 mmHg Bedside Blood Gas pO2 (LAB) 72 mmHg Bedside Blood Gas HCO3 (LAB) 39 meq/L Bedside Blood Gas Total CO2 > 40 mEq/l Bedside Blood Gas Base Excess (LAB) 11.0 meq/L Bedside Blood Gas O2 Saturation 89.0 % White Blood Count 8.12 K/uL Red Blood Count 3.78 M/uL Hemoglobin 11.7 g/dL Hematocrit 39.4 % Mean Corpuscular Volume 104.2 fL Mean Corpuscular Hemoglobin 31.0 pg Mean Corpuscular Hemoglobin Concent 29.7 g/dl Platelet Count 269 K/uL Mean Platelet Volume 11.2 fL Neutrophils (%) (Auto) 76.2 % Lymphocytes (%) (Auto) 14.2 % Monocytes (%) (Auto) 8.1 % Eosinophils (%) (Auto) 1.2 % Basophils (%) (Auto) 0.2 % Neutrophils # (Auto) 6.18 K/uL Lymphocytes # (Auto) 1.15 K/uL Monocytes # (Auto) 0.66 K/uL Eosinophils # (Auto) 0.10 K/uL Basophils # (Auto) 0.02 K/uL RDW Standard Deviation 55.9 fL RDW Coefficient of Variation 14.6 % Immature Granulocyte % (Auto) 0.1 % Immature Granulocyte # (Auto) 0.01 K/uL Prothrombin Time 10.5 SECONDS Prothromb Time International Ratio 1.0 Activated Partial Thromboplast Time 25.4 SECONDS Partial Thromboplastin Ratio 1.0 Sodium Level 145 mmol/L Potassium Level 4.2 mmol/L Chloride Level 105 mmol/L Carbon Dioxide Level 39 mmol/L Anion Gap 1.0 mmol/L 16.0 mmol/L Blood Urea Nitrogen 20 mg/dl Creatinine 0.66 mg/dl Est Creatinine Clear Calc Drug Dose 133.3 ml/min Estimated GFR () 109.6 Estimated GFR (Non- 94.6 BUN/Creatinine Ratio 29.9 Random Glucose 106 mg/dl Calcium Level 8.1 mg/dl Phosphorus Level 4.1 mg/dl Total Bilirubin 0.3 mg/dl Aspartate Amino Transf (AST/SGOT) 18 U/L Alanine Aminotransferase (ALT/SGPT) 27 U/L Alkaline Phosphatase 91 U/L Troponin I 0.020 ng/ml Pro-B-Type Natriuretic Peptide 1318 pg/ml Total Protein 6.5 gm/dl Albumin 3.0 gm/dl Globulin 3.5 gm/dl Albumin/Globulin Ratio 0.9 Bedside Hemoglobin 12.6 g/dl Bedside Hematocrit 37 % Bedside Sodium 144 mEq/L Bedside Potassium 4.0 mEq/L Bedside Chloride 98 mEq/L Bedside Total CO2 35 mEq/l Bedside Blood Urea Nitrogen 21 mg/dl Bedside Creatinine 0.8 mg/dl Bedside Glucose (other) 109 mg/dl Bedside Lactic Acid Venous 0.64 mmol/L Bedside Ionized Calcium (Gladys) 1.08 mmol/l Urine Color DK YELLOW Urine Appearance CLEAR Urine pH 5.0 Urine Specific [place] 1.025 Urine Protein NEG Urine Glucose (UA) NEG Urine Ketones NEG Urine Occult Blood NEG Urine Nitrite NEG Urine Bilirubin NEG Urine Urobilinogen NEG Urine Leukocyte Esterase NEG Test 12/26/16 13:50 12/26/16 16:16 12/26/16 22:23 12/26/16 22:28 Bedside Blood Gas pH (LAB) 7.30 7.32 7.42 Bedside Blood Gas pCO2 (LAB) 79 mmHg 74 mmHg 66 mmHg Bedside Blood Gas pO2 (LAB) 59 mmHg 66 mmHg 66 mmHg Bedside Blood Gas HCO3 (LAB) 39 meq/L 38 meq/L 43 meq/L Bedside Blood Gas Total CO2 > 40 mEq/l > 40 mEq/l > 40 mEq/l Bedside Blood Gas Base Excess (LAB) 12.0 meq/L 11.0 meq/L 19.0 meq/L Bedside Blood Gas O2 Saturation 86.0 % 90.0 % 92.0 % Blood Gas Sample Site R Radial R Radial Arun Test Pass Pass Oxygen Delivery Device BIPAP BIPAP Bedside Oxygen Rate (breaths/min) 12 20 Bedside FiO2 0 % 35 % Blood Gas IPAP 18 18 Troponin I 0.028 ng/ml Test 12/27/16 06:13 12/27/16 06:17 White Blood Count 8.40 K/uL Red Blood Count 3.80 M/uL Hemoglobin 11.9 g/dL Hematocrit 39.7 % Mean Corpuscular Volume 104.5 fL Mean Corpuscular Hemoglobin 31.3 pg Mean Corpuscular Hemoglobin Concent 30.0 g/dl Platelet Count 241 K/uL Mean Platelet Volume 11.0 fL Neutrophils (%) (Auto) 73.6 % Lymphocytes (%) (Auto) 14.3 % Monocytes (%) (Auto) 10.4 % Eosinophils (%) (Auto) 1.4 % Basophils (%) (Auto) 0.2 % Neutrophils # (Auto) 6.18 K/uL Lymphocytes # (Auto) 1.20 K/uL Monocytes # (Auto) 0.87 K/uL Eosinophils # (Auto) 0.12 K/uL Basophils # (Auto) 0.02 K/uL RDW Standard Deviation 56.8 fL RDW Coefficient of Variation 14.8 % Immature Granulocyte % (Auto) 0.1 % Immature Granulocyte # (Auto) 0.01 K/uL Sodium Level 147 mmol/L Potassium Level 3.6 mmol/L Chloride Level 103 mmol/L Carbon Dioxide Level 41 mmol/L Anion Gap 3.0 mmol/L Blood Urea Nitrogen 21 mg/dl Creatinine 0.76 mg/dl Est Creatinine Clear Calc Drug Dose 109.0 ml/min Estimated GFR () 103.4 Estimated GFR (Non- 89.2 BUN/Creatinine Ratio 27.5 Random Glucose 76 mg/dl Calcium Level 8.1 mg/dl Phosphorus Level 3.3 mg/dl Magnesium Level 2.5 mg/dl Troponin I 0.019 ng/ml Bedside Glucose 73 mg/dl Resident Tracking Resident Involvement: Resident Care Provided Care Provided: Adult Hospital Medicine
[2016-12-27] MEDS: SIMVASTATIN 40 MG TAB PO SCH (22:13)
[2016-12-28] VITALS (11 sets, daily range): BP systolic 109–137; BP diastolic 46–72; PULSE 65–89; TEMP 36.5–37; O2SAT 91–97
[2016-12-28] MEDS: NITROGLYCERIN 2% OINTMENT 30GM TUBE EXT SCH ×3 (05:36→18:00)
[2016-12-28] MEDS: HEPARIN SOD 5000 UNIT/0.5 ML CARP SQ SCH ×3 (05:42→21:15)
[2016-12-28 06:59] LABS: BASO % 0.1 %; BASO ABS # 0.01 K/uL (0-0.2); COMPLETE YES; EOS % 2.4 %; HEMATOCRIT 37.5 % (42-52); IG% 0.1 %; LYMPH % 14.6 %; LYMPH ABS # 1.08 K/uL (1.2-3.4); MEAN CELL VOLUME 102.7 fL (80-100); MEAN CORPUSCULAR HEMOGLOBIN 30.7 pg (25-34); MEAN CORPUSCULAR HGB CONC 29.9 g/dl (32-36); MEAN PLATELET VOLUME 11.1 fL (7.4-10.4); MONO % 10.4 %; NEUT % 72.4 %; PLATELET COUNT 246 K/uL (130-400); RED BLOOD COUNT 3.65 M/uL (4.7-6.1)
[2016-12-28 07:36] LABS: BUN/CREATININE RATIO 32.7 (10-20); CALCIUM 7.9 mg/dl (8.5-10.1); CREATININE 0.82 mg/dl (0.60-1.40); MAGNESIUM 2.3 mg/dl (1.8-2.4); POTASSIUM 3.7 mmol/L (3.5-5.1)
[2016-12-28] MEDS: POTASSIUM CHLORIDE 10 MEQ TABCR PO SCH ×2 (08:14→21:12)
[2016-12-28] MEDS: PANTOprazole SOD 40 MG TAB PO SCH (08:15)
[2016-12-28] MEDS: CLOPIDOGREL BISULFATE 75 MG TAB PO SCH (08:15)
[2016-12-28] MEDS: LISINOPRIL 10 MG TAB PO SCH (08:15)
[2016-12-28] MEDS: DOCUSATE SODIUM 100 MG CAP PO SCH ×2 (08:15→21:10)
[2016-12-28] MEDS: FUROSEMIDE INJ 40 MG in SYRINGE 0 ML IV SCH ×2 (08:16→17:11)
[2016-12-28] MEDS: METOPROLOL TARTRATE 50 MG TAB PO SCH ×2 (08:17→21:11)
--- NOTE | 2016-12-28 11:07 | Hospitalist Progress Note ---
Hospitalist Progress Note Date of Service December 28, 2016. Subjective Pt evaluation today including: conversation w/ patient, physical exam, chart review, lab review, review of studies, review of inpatient medication list Pain: None PO Intake: Good Voiding: pearsno catheter in place The patient was seen and examined this morning. Pt reports doing well this morning. He feels his breathing is improved slightly, he has actually tolerated wearing CPAP without difficulty the past two nights. He's tolerating this because his attention has been more focused on urinary incontinence which is new in the past few days prior to admission. He has been wetting the bed even at night. Today his urine in pearson catheter bag has a red tint, and there is a clot in the line. Pt reports last time he had blood in urine was with prostate cancer. He admits to dysuria when he urinates prior to this admission. ROS: 10 point ROS was reviewed and is otherwise negative. Objective Vital Signs Date Time Temp Pulse Resp B/P Pulse Ox O2 Delivery O2 Flow Rate FiO2 12/28/16 08:12 37.0 72 18 126/56 91 Room Air 2.0 12/28/16 08:00 95 Nasal Cannula 2.0 30 BiPAP 12/28/16 04:58 74 95 30 12/28/16 02:34 67 97 35 12/28/16 00:00 94 BiPAP 12/28/16 00:00 36.7 66 20 109/52 94 BiPAP 12/27/16 22:43 69 94 35 12/27/16 16:25 36.8 67 22 131/67 96 Nasal Cannula 2.0 12/27/16 16:10 93 Nasal Cannula 2.0 12/27/16 12:25 36.7 72 18 138/71 93 Nasal Cannula 2.0 12/27/16 11:55 36.9 72 22 93 2.0 Physical Exam Notes: General Appearance: WD/WN, no apparent distress, + obese Eyes: PERRL, EOMI ENT: hearing grossly normal, pharynx normal Neck: supple, no JVD Respiratory/Chest: chest non-tender, no respiratory distress, no accessory muscle use, + pertinent finding (On 2 L via NC, clear breath sounds, no wheezing , rales or rhonchi.) Cardiovascular: regular rate, rhythm, no murmur Abdomen: normal bowel sounds, non tender, soft, nondistended Extremities: non-tender, + pertinent finding (+ chronic venous stasis changes on LLE, + pain with palpation of R posterior ankle ) Neurologic/Psychiatric: alert, normal mood/affect, oriented x 3 Skin: normal color, warm/dry Laboratory Results Last 24 Hours Test 12/27/16 17:01 12/27/16 21:24 12/28/16 06:21 12/28/16 07:41 Bedside Glucose 92 mg/dl 148 mg/dl 92 mg/dl White Blood Count 7.40 K/uL Red Blood Count 3.65 M/uL Hemoglobin 11.2 g/dL Hematocrit 37.5 % Mean Corpuscular Volume 102.7 fL Mean Corpuscular Hemoglobin 30.7 pg Mean Corpuscular Hemoglobin Concent 29.9 g/dl Platelet Count 246 K/uL Mean Platelet Volume 11.1 fL Neutrophils (%) (Auto) 72.4 % Lymphocytes (%) (Auto) 14.6 % Monocytes (%) (Auto) 10.4 % Eosinophils (%) (Auto) 2.4 % Basophils (%) (Auto) 0.1 % Neutrophils # (Auto) 5.35 K/uL Lymphocytes # (Auto) 1.08 K/uL Monocytes # (Auto) 0.77 K/uL Eosinophils # (Auto) 0.18 K/uL Basophils # (Auto) 0.01 K/uL RDW Standard Deviation 55.4 fL RDW Coefficient of Variation 14.5 % Immature Granulocyte % (Auto) 0.1 % Immature Granulocyte # (Auto) 0.01 K/uL Sodium Level 146 mmol/L Potassium Level 3.7 mmol/L Chloride Level 100 mmol/L Carbon Dioxide Level 44 mmol/L Anion Gap 3.0 mmol/L Blood Urea Nitrogen 27 mg/dl Creatinine 0.82 mg/dl Est Creatinine Clear Calc Drug Dose 101.5 ml/min Estimated GFR () 100.3 Estimated GFR (Non- 86.5 BUN/Creatinine Ratio 32.7 Random Glucose 94 mg/dl Calcium Level 7.9 mg/dl Magnesium Level 2.3 mg/dl Assessment and Plan 76 yo M with PMHX of COPD, Acute on chronic diastolic heart failure, MAX noncompliance with Bipap, CAD, HTN, hx of DVT, GERD and prostate cancer Metabolic encephalopathy secondary to acute on chronic hypercapnic respiratory failure and obesity hypoventilation syndrome. MAX with CPAP noncompliance - Transfer out of ICU to med/surg - patient is a chronic retainer: Initial ABG pH of 7.25 and CO2 95 - Recently discharged by myself and Dr. Bain in early November for very similar presentation , and was discharged to [facility] for noc ox and CPAP. - Pt is agreeable at this time to following up with pulmonology as an outpatient , in the past he has refused all of this. I spoke with jaquelin Dominguez, who would be willing to see him in the next available appointment, I have already requested this. - Discussion was held with the patient regarding respiratory support called Trilogy, would help to remove CO2 during the day if in fact he does not wear CPAP at night (due to claustrophobia) Will ask James Castillo to discuss this with the pt - Pt may also benefit from a sleep study? - Encourage weight loss COPD- -Duo nebs every 4 hours as needed for wheezing Acute on Chronic diastolic heart failure - Continue Diamox 250 mg daily - Lasix 40 mg IV BID, continue as pt with good outs so far, no elevation of Cr. - monitor renal function and electrolytes Severe depressive episode - occurred after his son - He was evaluated by Psychiatry during last admission; suggested a trial of effexor 37.5 mg, not started at present Coronary artery disease -Continue Plavix 75 mg daily, lisinopril 10 mg daily, metoprolol 50 mg twice daily, simvastatin 80 mg daily GERD -Continue pantoprazole 40 mg daily History of DVT-cont Plavix History of prostate cancer-stable HTN - Continue metoprolol 50 mg PO daily and lisinopril 10 mg daily DVT ppx: teds, scds, plavix CODE STATUS: FULL CODE Disposition: From home, likely tomorrow after further diuresis
[2016-12-28] MEDS: DOCUSATE SODIUM/SENNA 50/8.6MG TAB PO SCH (12:24)
[2016-12-28 14:38] LABS: MANUAL MICROSCOPIC REQUIRED? YES; URINE APPEARANCE CLOUDY (CLEAR); URINE BILIRUBIN NEG (NEG); URINE COLOR RED; URINE NITRITE NEG (NEG); UROBILINOGEN NEG (NEG)
[2016-12-28 14:41] LABS: REVIEW REQ? NO
[2016-12-28 14:43] LABS: URINE MUCUS PRESENT (NONE PRSENT)
[2016-12-28 14:44] LABS: URINE BACTERIA NEG (NEG); URINE RBC >30 /hpf (0-4)
[2016-12-28] MEDS: SIMVASTATIN 40 MG TAB PO SCH (21:10)
[2016-12-29] VITALS (9 sets, daily range): BP systolic 112–137; BP diastolic 52–73; PULSE 67–93; TEMP 36.3–36.5; O2SAT 92–96
[2016-12-29] MEDS: NITROGLYCERIN 2% OINTMENT 30GM TUBE EXT SCH ×5 (05:29→23:31)
[2016-12-29] MEDS: HEPARIN SOD 5000 UNIT/0.5 ML CARP SQ SCH ×3 (05:34→20:57)
[2016-12-29 07:37] LABS: BASO % 0.3 %; BASO ABS # 0.02 K/uL (0-0.2); COMPLETE YES; EOS % 4.2 %; HEMATOCRIT 39.1 % (42-52); IG% 0.1 %; LYMPH % 16.3 %; LYMPH ABS # 1.13 K/uL (1.2-3.4); MEAN CELL VOLUME 103.7 fL (80-100); MEAN CORPUSCULAR HEMOGLOBIN 31.6 pg (25-34); MEAN CORPUSCULAR HGB CONC 30.4 g/dl (32-36); MEAN PLATELET VOLUME 11.4 fL (7.4-10.4); MONO % 9.1 %; PLATELET COUNT 256 K/uL (130-400); RED BLOOD COUNT 3.77 M/uL (4.7-6.1); WHITE BLOOD COUNT 6.92 K/uL (4.8-10.8)
[2016-12-29] MEDS: LISINOPRIL 10 MG TAB PO SCH (08:27)
[2016-12-29] MEDS: METOPROLOL TARTRATE 50 MG TAB PO SCH ×2 (08:27→20:59)
[2016-12-29] MEDS: CLOPIDOGREL BISULFATE 75 MG TAB PO SCH (08:27)
[2016-12-29] MEDS: PANTOprazole SOD 40 MG TAB PO SCH (08:27)
[2016-12-29] MEDS: DOCUSATE SODIUM 100 MG CAP PO SCH ×2 (08:27→20:58)
[2016-12-29] MEDS: POTASSIUM CHLORIDE 10 MEQ TABCR PO SCH ×2 (08:27→20:58)
[2016-12-29] MEDS: FUROSEMIDE INJ 40 MG in SYRINGE 0 ML IV SCH ×2 (08:29→17:39)
[2016-12-29 08:47] LABS: BUN/CREATININE RATIO 37.4 (10-20); CALCIUM 8.5 mg/dl (8.5-10.1); CREATININE 0.81 mg/dl (0.60-1.40); MAGNESIUM 2.3 mg/dl (1.8-2.4); POTASSIUM 3.7 mmol/L (3.5-5.1)
[2016-12-29] MEDS: DOCUSATE SODIUM/SENNA 50/8.6MG TAB PO SCH (11:23)
--- NOTE | 2016-12-29 14:45 | Progress Note ---
Subjective Date of Service: December 29, 2016. Subjective Pt evaluation today including: conversation w/ patient, physical exam, lab review, review of inpatient medication list Pain: denies pain PO Intake: adequate Voiding: no voiding problems patient feeling well this AM, sitting in chair, no distress, just finished eating breakfast breathing stable, still with edema in legs slept well with CPAP, 3 nights in a row, says he will use at home discussed that his had called and said that she did not want him back home discussed that PT/OT thought he was strong enough to go home once medically clear he knows that he and his not getting along, feels she is frustrated with his poor health and deconditioning he is not interested in going to a SNF for rehab told him that he was not medically ready for going home, still with edema Problem List Medical Problems: (1) Altered mental status Status: Acute (2) CHF (congestive heart failure) Status: Acute (3) Generalized weakness Status: Acute (4) Hypercarbia Status: Acute (5) Respiratory failure Status: Acute Review of Systems Constitutional: + fatigue, + weakness Respiratory: + dyspnea on exertion Cardiac: + edema All Other Systems: Reviewed and Negative Medications Current Inpatient Medications Medications (Trade) Dose Ordered Sig/Abhijeet Route Start Time Stop Time Status Last Admin Dose Admin Heparin Sodium (Porcine) (Heparin Sq 5000 Unit/0.5ml) 5,000 unit Q8 SQ 12/26/16 22:00 01/25/17 21:59 12/29/16 13:48 5,000 UNIT Acetaminophen (Tylenol Tab) 650 mg Q4H PRN PO 12/26/16 14:00 01/25/17 13:59 Nitroglycerin (Nitroglycerin 2% Oint) 1 inch Q6 EXT 12/26/16 18:00 01/25/17 17:59 12/29/16 11:22 1 INCH Ondansetron HCl (Zofran Inj) 4 mg Q6H PRN IV 12/26/16 14:00 01/25/17 13:59 Albuterol/ Ipratropium (Duoneb) 3 ml Q6R PRN INH 12/26/16 14:00 01/25/17 13:59 Clopidogrel Bisulfate (plAVix TAB) 75 mg DAILY PO 12/27/16 09:00 01/26/17 08:59 12/29/16 08:27 75 MG Docusate Sodium (coLACE CAP) 100 mg BID PO 12/26/16 21:00 01/25/17 20:59 12/29/16 08:27 100 MG Lisinopril (Zestril Tab) 10 mg DAILY PO 12/27/16 09:00 01/26/17 08:59 12/29/16 08:27 10 MG Magnesium Hydroxide (Milk Of Magnesia Susp) 30 ml DAILY PRN PO 12/26/16 14:45 01/25/17 14:44 Metoprolol Tartrate (Lopressor Tab) 50 mg BID PO 12/26/16 21:00 01/25/17 20:59 12/29/16 08:27 50 MG Nitroglycerin (Nitrostat Tab) 0.4 mg UD PRN UT 12/26/16 14:45 01/25/17 14:44 Pantoprazole Sodium (Protonix Tab) 40 mg DAILY PO 12/27/16 09:00 01/26/17 08:59 12/29/16 08:27 40 MG Senna/Docusate Sodium (Senokot S Tab) 1 tab DAILY@1200 PO 12/27/16 12:00 01/26/17 11:59 12/29/16 11:23 1 TAB Simvastatin 40 mg 40 mg QPM PO 12/26/16 21:00 01/25/17 20:59 12/28/16 21:10 40 MG Furosemide/Syringe (Lasix Inj/ Syringe) 4 ml @ 4 mls/min BID17 IV 12/26/16 21:00 01/25/17 20:59 12/29/16 08:29 4 MLS/MIN Potassium Chloride (Klor-Con M10) 20 meq BID PO 12/26/16 21:00 01/25/17 20:59 12/29/16 08:27 20 MEQ Metoprolol Tartrate (Lopressor Iv) 5 mg Q6 PRN IV 12/26/16 19:45 01/25/17 19:44 Terazosin HCl (Hytrin Cap) 5 mg HS PO 12/27/16 22:00 01/26/17 21:59 12/28/16 21:12 5 MG Objective Vital Signs Date Time Temp Pulse Resp B/P Pulse Ox O2 Delivery O2 Flow Rate FiO2 5/20/17 11:21 71 129/73 5/20/17 08:00 Nasal Cannula 2.0 12/29/16 07:54 36.3 73 20 124/59 94 Nasal Cannula 3.0 12/29/16 05:22 68 93 30 12/29/16 02:19 67 92 30 12/29/16 01:20 95 Nasal Cannula 2.0 BiPAP 12/28/16 23:49 36.5 89 18 137/61 93 Nasal Cannula 2.0 12/28/16 22:10 82 96 30 12/28/16 19:44 95 Nasal Cannula 2.0 BiPAP 12/28/16 17:24 65 125/72 12/28/16 16:00 95 Nasal Cannula 2.0 BiPAP 12/28/16 15:55 36.5 76 18 119/46 96 2.0 Physical Exam General Appearance: no apparent distress, + obese Eyes: normal inspection, EOMI, sclerae normal Neck: supple, no adenopathy, no JVD, trachea midline Respiratory/Chest: chest non-tender, lungs clear, normal breath sounds, no respiratory distress, no accessory muscle use Cardiovascular: regular rate, rhythm, no gallop, no JVD, no murmur Abdomen: normal bowel sounds, non tender, soft, no organomegaly Extremities: normal range of motion, non-tender, normal inspection, no calf tenderness, + pedal edema (bilaterally, pitting, to the mid reyes) Neurologic/Psychiatric: 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 II-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 nml as tested, alert, normal mood/affect, oriented x 3, + motor weakness (generalized) Skin: normal color, warm/dry, no rash Laboratory Results Last 24 Hours Test 12/28/16 16:28 12/28/16 19:50 12/29/16 06:50 12/29/16 07:49 Bedside Glucose 127 mg/dl 134 mg/dl 103 mg/dl White Blood Count 6.92 K/uL Red Blood Count 3.77 M/uL Hemoglobin 11.9 g/dL Hematocrit 39.1 % Mean Corpuscular Volume 103.7 fL Mean Corpuscular Hemoglobin 31.6 pg Mean Corpuscular Hemoglobin Concent 30.4 g/dl Platelet Count 256 K/uL Mean Platelet Volume 11.4 fL Neutrophils (%) (Auto) 70.0 % Lymphocytes (%) (Auto) 16.3 % Monocytes (%) (Auto) 9.1 % Eosinophils (%) (Auto) 4.2 % Basophils (%) (Auto) 0.3 % Neutrophils # (Auto) 4.84 K/uL Lymphocytes # (Auto) 1.13 K/uL Monocytes # (Auto) 0.63 K/uL Eosinophils # (Auto) 0.29 K/uL Basophils # (Auto) 0.02 K/uL RDW Standard Deviation 55.5 fL RDW Coefficient of Variation 14.5 % Immature Granulocyte % (Auto) 0.1 % Immature Granulocyte # (Auto) 0.01 K/uL Sodium Level 143 mmol/L Potassium Level 3.7 mmol/L Chloride Level 98 mmol/L Carbon Dioxide Level 43 mmol/L Anion Gap 2.0 mmol/L Blood Urea Nitrogen 30 mg/dl Creatinine 0.81 mg/dl Est Creatinine Clear Calc Drug Dose 102.7 ml/min Estimated GFR () 100.8 Estimated GFR (Non- 86.9 BUN/Creatinine Ratio 37.4 Random Glucose 103 mg/dl Calcium Level 8.5 mg/dl Magnesium Level 2.3 mg/dl Assessment and Plan 76 yo M with PMHX of COPD, Acute on chronic diastolic heart failure, MAX noncompliance with Bipap, CAD, HTN, hx of DVT, GERD and prostate cancer Metabolic encephalopathy secondary to acute on chronic hypercapnic respiratory failure and obesity hypoventilation syndrome. MAX with CPAP noncompliance - encephalopathy resolved completely - will follow up with James TELLEZ to evaluate MAX and hypercapnia, possible Trilogy use outpatient? COPD- -Duo nebs every 4 hours as needed for wheezing, no signs of acute exacerbation Acute on Chronic diastolic heart failure - continues to diurese but slowing down, lungs are clear but still with edema in legs - once more day of Lasix 40mg IV BID, will add metolazone tomorrow Severe depressive episode - occurred after his son - He was evaluated by Psychiatry during last admission; suggested a trial of effexor 37.5 mg, not started at present Coronary artery disease -Continue Plavix 75 mg daily, lisinopril 10 mg daily, metoprolol 50 mg twice daily, simvastatin 80 mg daily GERD -Continue pantoprazole 40 mg daily History of DVT-cont Plavix History of prostate cancer-stable, follows with Urology HTN - Continue metoprolol 50 mg PO daily and lisinopril 10 mg daily DVT ppx: teds, scds, plavix CODE STATUS: FULL CODE Disposition: plan to d/c home with home health once stable
[2016-12-29] MEDS: SIMVASTATIN 40 MG TAB PO SCH (20:59)
[2016-12-30] VITALS (7 sets, daily range): BP systolic 113–134; BP diastolic 53–72; PULSE 69–84; TEMP 36.5–36.8; O2SAT 92–96
[2016-12-30] MEDS: NITROGLYCERIN 2% OINTMENT 30GM TUBE EXT SCH ×3 (05:55→17:17)
[2016-12-30] MEDS: HEPARIN SOD 5000 UNIT/0.5 ML CARP SQ SCH ×3 (05:56→22:26)
[2016-12-30 06:14] LABS: BASO % 0.2 %; BASO ABS # 0.01 K/uL (0-0.2); COMPLETE YES; EOS % 4.2 %; HEMATOCRIT 37.7 % (42-52); IG% 0.2 %; LYMPH % 22.4 %; LYMPH ABS # 1.43 K/uL (1.2-3.4); MEAN CELL VOLUME 102.7 fL (80-100); MEAN CORPUSCULAR HEMOGLOBIN 31.1 pg (25-34); MEAN CORPUSCULAR HGB CONC 30.2 g/dl (32-36); MEAN PLATELET VOLUME 11.1 fL (7.4-10.4); MONO % 8.8 %; NEUT % 64.2 %; PLATELET COUNT 230 K/uL (130-400); RED BLOOD COUNT 3.67 M/uL (4.7-6.1); WHITE BLOOD COUNT 6.37 K/uL (4.8-10.8)
[2016-12-30 07:08] LABS: BUN/CREATININE RATIO 36.5 (10-20); CALCIUM 8.5 mg/dl (8.5-10.1); CREATININE 0.72 mg/dl (0.60-1.40); MAGNESIUM 2.6 mg/dl (1.8-2.4); POTASSIUM 4.1 mmol/L (3.5-5.1)
[2016-12-30] MEDS: POTASSIUM CHLORIDE 10 MEQ TABCR PO SCH ×2 (07:40→22:28)
[2016-12-30] MEDS: DOCUSATE SODIUM 100 MG CAP PO SCH ×2 (07:40→22:27)
[2016-12-30] MEDS: CLOPIDOGREL BISULFATE 75 MG TAB PO SCH (07:40)
[2016-12-30] MEDS: METOPROLOL TARTRATE 50 MG TAB PO SCH ×2 (07:40→22:28)
[2016-12-30] MEDS: PANTOprazole SOD 40 MG TAB PO SCH (07:40)
[2016-12-30] MEDS: LISINOPRIL 10 MG TAB PO SCH (07:41)
[2016-12-30] MEDS: FUROSEMIDE INJ 40 MG in SYRINGE 0 ML IV SCH (08:20)
[2016-12-30] MEDS ORDERED: METOLAZONE 5 MG TAB PO SCH (08:30)
[2016-12-30] MEDS: DOCUSATE SODIUM/SENNA 50/8.6MG TAB PO SCH (11:21)
--- NOTE | 2016-12-30 12:50 | Progress Note ---
Subjective Date of Service: December 30, 2016. Subjective Pt evaluation today including: conversation w/ patient, physical exam, lab review, review of inpatient medication list Pain: denies pain PO Intake: adequate Voiding: no voiding problems sitting up in chair this AM, no distress, breathing well feels like he is urinating more with the Zaroxolyn this AM discussed discharge plans, still not talking much with his and she doesn't want him home discussed going to [facility], he would like to try to go there again but would not consider a SNF if [facility] not an option discussed using BIPAP, he has used EVERY night, no issues, wants to set up as outpatient ordered nocturnal desaturation on room air and morning ABG to try to qualify him for home BIPAP this would do wonders for both COPD and heart failure, would prevent future readmissions Problem List Medical Problems: (1) Altered mental status Status: Acute (2) CHF (congestive heart failure) Status: Acute (3) Generalized weakness Status: Acute (4) Hypercarbia Status: Acute (5) Respiratory failure Status: Acute Review of Systems Constitutional: + fatigue, + weakness, No chills, No fever, No problem reported , No see HPI, No sweats, No weight loss Respiratory: + dyspnea on exertion, No cough, No dyspnea at rest, No hemoptysis , No problem reported, No see HPI, No shortness of breath, No sputum, No wheezing Cardiac: + edema, No PND, No chest pain, No claudication, No orthopnea, No palpitations, No problem reported, No see HPI Psychiatric: + depression symptoms (very depressed since sonleisa suddenly in June) All Other Systems: Reviewed and Negative Medications Current Inpatient Medications Medications (Trade) Dose Ordered Sig/Abhijeet Route Start Time Stop Time Status Last Admin Dose Admin Heparin Sodium (Porcine) (Heparin Sq 5000 Unit/0.5ml) 5,000 unit Q8 SQ 12/26/16 22:00 01/25/17 21:59 12/30/16 05:56 5,000 UNIT Acetaminophen (Tylenol Tab) 650 mg Q4H PRN PO 12/26/16 14:00 01/25/17 13:59 Nitroglycerin (Nitroglycerin 2% Oint) 1 inch Q6 EXT 12/26/16 18:00 01/25/17 17:59 5/21/17 11:21 1 INCH Ondansetron HCl (Zofran Inj) 4 mg Q6H PRN IV 12/26/16 14:00 01/25/17 13:59 Albuterol/ Ipratropium (Duoneb) 3 ml Q6R PRN INH 12/26/16 14:00 01/25/17 13:59 Clopidogrel Bisulfate (plAVix TAB) 75 mg DAILY PO 12/27/16 09:00 01/26/17 08:59 12/30/16 07:40 75 MG Docusate Sodium (coLACE CAP) 100 mg BID PO 12/26/16 21:00 01/25/17 20:59 12/30/16 07:40 100 MG Lisinopril (Zestril Tab) 10 mg DAILY PO 12/27/16 09:00 01/26/17 08:59 12/30/16 07:41 10 MG Magnesium Hydroxide (Milk Of Magnesia Susp) 30 ml DAILY PRN PO 12/26/16 14:45 01/25/17 14:44 Metoprolol Tartrate (Lopressor Tab) 50 mg BID PO 12/26/16 21:00 01/25/17 20:59 12/30/16 07:40 50 MG Nitroglycerin (Nitrostat Tab) 0.4 mg UD PRN UT 12/26/16 14:45 01/25/17 14:44 Pantoprazole Sodium (Protonix Tab) 40 mg DAILY PO 12/27/16 09:00 01/26/17 08:59 12/30/16 07:40 40 MG Senna/Docusate Sodium (Senokot S Tab) 1 tab DAILY@1200 PO 12/27/16 12:00 01/26/17 11:59 12/30/16 11:21 1 TAB Simvastatin 40 mg 40 mg QPM PO 12/26/16 21:00 01/25/17 20:59 12/29/16 20:59 40 MG Furosemide/Syringe (Lasix Inj/ Syringe) 4 ml @ 4 mls/min BID17 IV 12/26/16 21:00 01/25/17 20:59 12/30/16 08:20 4 MLS/MIN Potassium Chloride (Klor-Con M10) 20 meq BID PO 12/26/16 21:00 01/25/17 20:59 12/30/16 07:40 20 MEQ Metoprolol Tartrate (Lopressor Iv) 5 mg Q6 PRN IV 12/26/16 19:45 01/25/17 19:44 Terazosin HCl (Hytrin Cap) 5 mg HS PO 12/27/16 22:00 01/26/17 21:59 12/29/16 20:59 5 MG Metolazone (Zaroxolyn Tab) 5 mg DAILY@0830 PO 12/30/16 08:30 01/29/17 08:29 12/30/16 07:41 5 MG Objective Vital Signs Date Time Temp Pulse Resp B/P Pulse Ox O2 Delivery O2 Flow Rate FiO2 12/30/16 11:20 73 116/66 12/30/16 08:00 Nasal Cannula 2.0 12/30/16 07:22 36.5 69 18 125/72 94 Nasal Cannula 2.0 12/30/16 05:41 73 20 113/53 95 BiPAP 12/30/16 00:00 94 BiPAP 2.0 30 12/29/16 23:38 71 20 112/52 94 BiPAP 12/29/16 20:35 93 96 30 12/29/16 20:35 93 19 96 BiPAP 30 12/29/16 17:43 137/61 12/29/16 16:00 Nasal Cannula 2.0 12/29/16 14:56 36.5 71 20 128/71 94 Nasal Cannula 2.0 Physical Exam General Appearance: no apparent distress, + obese Eyes: normal inspection, EOMI, sclerae normal ENT: normal ENT inspection, hearing grossly normal, pharynx normal Neck: supple, no adenopathy, no JVD, trachea midline Respiratory/Chest: chest non-tender, lungs clear, normal breath sounds, no respiratory distress, no accessory muscle use Cardiovascular: regular rate, rhythm, no gallop, no JVD, no murmur Abdomen: normal bowel sounds, non tender, soft, no organomegaly Extremities: normal range of motion, non-tender, normal inspection, no calf tenderness, pelvis stable, + pedal edema (non-pitting, nearly back to baseline) Neurologic/Psychiatric: municipal [employer] II-XII nml as tested, no motor/sensory deficits, alert, normal mood/affect, oriented x 3 Skin: normal color, warm/dry, no rash Lymphatic: no adenopathy Laboratory Results Last 24 Hours Test 12/30/16 05:51 12/30/16 07:58 White Blood Count 6.37 K/uL Red Blood Count 3.67 M/uL Hemoglobin 11.4 g/dL Hematocrit 37.7 % Mean Corpuscular Volume 102.7 fL Mean Corpuscular Hemoglobin 31.1 pg Mean Corpuscular Hemoglobin Concent 30.2 g/dl Platelet Count 230 K/uL Mean Platelet Volume 11.1 fL Neutrophils (%) (Auto) 64.2 % Lymphocytes (%) (Auto) 22.4 % Monocytes (%) (Auto) 8.8 % Eosinophils (%) (Auto) 4.2 % Basophils (%) (Auto) 0.2 % Neutrophils # (Auto) 4.09 K/uL Lymphocytes # (Auto) 1.43 K/uL Monocytes # (Auto) 0.56 K/uL Eosinophils # (Auto) 0.27 K/uL Basophils # (Auto) 0.01 K/uL RDW Standard Deviation 54.9 fL RDW Coefficient of Variation 14.4 % Immature Granulocyte % (Auto) 0.2 % Immature Granulocyte # (Auto) 0.01 K/uL Sodium Level 145 mmol/L Potassium Level 4.1 mmol/L Chloride Level 101 mmol/L Carbon Dioxide Level 44 mmol/L Anion Gap 0.0 mmol/L Blood Urea Nitrogen 26 mg/dl Creatinine 0.72 mg/dl Est Creatinine Clear Calc Drug Dose 115.6 ml/min Estimated GFR () 105.8 Estimated GFR (Non- 91.3 BUN/Creatinine Ratio 36.5 Random Glucose 103 mg/dl Calcium Level 8.5 mg/dl Magnesium Level 2.6 mg/dl Bedside Glucose 103 mg/dl Assessment and Plan 76 yo M with PMHX of COPD, Acute on chronic diastolic heart failure, MAX noncompliance with Bipap, CAD, HTN, hx of DVT, GERD and prostate cancer Metabolic encephalopathy secondary to acute on chronic hypercapnic respiratory failure and obesity hypoventilation syndrome. MAX with CPAP noncompliance - encephalopathy resolved completely - will follow up with James TELLEZ, hopefully this week - trying to set up BIPAP at home with nocturnal desaturation tonight and morning ABG COPD- -Duo nebs every 4 hours as needed for wheezing, no signs of acute exacerbation Acute on Chronic diastolic heart failure - continues to diurese but slowing down, lungs are clear but still with edema in legs - gave Zaroxolyn this AM prior to Lasix, already urinating more will resume Lasix 80mg BID at tonight's dose Severe depressive episode - occurred after his son - He was evaluated by Psychiatry during last admission; suggested a trial of effexor 37.5 mg, not started at present - will start Effexor 37.5mg today and continue on discharge Coronary artery disease -Continue Plavix 75 mg daily, lisinopril 10 mg daily, metoprolol 50 mg twice daily, simvastatin 80 mg daily GERD -Continue pantoprazole 40 mg daily History of DVT-cont Plavix History of prostate cancer-stable, follows with Urology HTN - Continue metoprolol 50 mg PO daily and lisinopril 10 mg daily DVT ppx: teds, scds, plavix CODE STATUS: FULL CODE Disposition: referral to [facility] placed by CM today, try to qualify for home BIPAP with nocturnal desaturation on room air and morning ABG if patient cannot get into [facility] he will not consider a SNF for rehab, he will want to go home he refuses to consider home services as well
[2016-12-30] MEDS: FUROSEMIDE 80 MG TAB PO SCH (17:12)
[2016-12-30] MEDS: VENLAFAXINE HCL 37.5 MG TAB PO SCH (22:27)
[2016-12-30] MEDS: SIMVASTATIN 40 MG TAB PO SCH (22:28)
[2016-12-31] VITALS (7 sets, daily range): BP systolic 95–134; BP diastolic 47–68; PULSE 60–84; TEMP 36.3–36.7; O2SAT 90–97
[2016-12-31] MEDS: NITROGLYCERIN 2% OINTMENT 30GM TUBE EXT SCH ×5 (01:18→23:51)
[2016-12-31] MEDS: HEPARIN SOD 5000 UNIT/0.5 ML CARP SQ SCH ×3 (06:32→21:26)
[2016-12-31 07:22] LABS: ARTERIAL BLOOD GAS BASE EXCESS 20.5 mEq/L (-9-1.8); ARTERIAL BLOOD GAS HCO3 49 mmol/L (19-24); ARTERIAL BLOOD GAS PO2 88 mm/Hg (80-95); ARTERIAL BLOOD GAS pH 7.43 (7.35-7.45)
[2016-12-31 07:23] LABS: ALLEN TEST POS (POS); O2 ADMINISTRATION 2 LITERS
[2016-12-31 07:25] LABS: BASO % 0.3 %; BASO ABS # 0.02 K/uL (0-0.2); COMPLETE YES; HEMATOCRIT 39.8 % (42-52); IG% 0.2 %; LYMPH ABS # 1.18 K/uL (1.2-3.4); MEAN CELL VOLUME 101.5 fL (80-100); MEAN CORPUSCULAR HEMOGLOBIN 29.8 pg (25-34); MEAN CORPUSCULAR HGB CONC 29.4 g/dl (32-36); MEAN PLATELET VOLUME 10.9 fL (7.4-10.4); MONO % 10.1 %; NEUT % 68.4 %; PLATELET COUNT 258 K/uL (130-400); RED BLOOD COUNT 3.92 M/uL (4.7-6.1); WHITE BLOOD COUNT 6.56 K/uL (4.8-10.8)
[2016-12-31] MEDS: DOCUSATE SODIUM 100 MG CAP PO SCH ×2 (07:55→21:20)
[2016-12-31] MEDS: VENLAFAXINE HCL 37.5 MG TAB PO SCH ×2 (07:55→21:20)
[2016-12-31] MEDS: CLOPIDOGREL BISULFATE 75 MG TAB PO SCH (07:56)
[2016-12-31] MEDS: PANTOprazole SOD 40 MG TAB PO SCH (07:56)
[2016-12-31] MEDS: METOPROLOL TARTRATE 50 MG TAB PO SCH ×2 (07:56→21:21)
[2016-12-31] MEDS: LISINOPRIL 10 MG TAB PO SCH (07:56)
[2016-12-31] MEDS: POTASSIUM CHLORIDE 10 MEQ TABCR PO SCH ×2 (07:56→21:20)
[2016-12-31] MEDS: FUROSEMIDE 80 MG TAB PO SCH ×2 (07:56→17:21)
[2016-12-31 08:05] LABS: BUN/CREATININE RATIO 31.8 (10-20); CALCIUM 8.5 mg/dl (8.5-10.1); CREATININE 0.63 mg/dl (0.60-1.40); MAGNESIUM 2.5 mg/dl (1.8-2.4)
[2016-12-31] MEDS: DOCUSATE SODIUM/SENNA 50/8.6MG TAB PO SCH (11:49)
[2016-12-31] MEDS ORDERED: AcetaZOLAMIDE 500 MG CAPCR PO ONE (16:15)
[2016-12-31] MEDS: SIMVASTATIN 40 MG TAB PO SCH (21:21)
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
[2017-01-01] VITALS (7 sets, daily range): BP systolic 115–132; BP diastolic 48–72; PULSE 64–88; TEMP 36.3–36.8; O2SAT 91–96
[2017-01-01] MEDS: NITROGLYCERIN 2% OINTMENT 30GM TUBE EXT SCH ×2 (05:57→12:00)
[2017-01-01] MEDS: HEPARIN SOD 5000 UNIT/0.5 ML CARP SQ SCH ×3 (05:58→20:52)
[2017-01-01] MEDS: DOCUSATE SODIUM 100 MG CAP PO SCH ×2 (07:48→20:44)
[2017-01-01] MEDS: POTASSIUM CHLORIDE 10 MEQ TABCR PO SCH ×2 (07:48→20:45)
[2017-01-01] MEDS: CLOPIDOGREL BISULFATE 75 MG TAB PO SCH (07:48)
[2017-01-01] MEDS: METOPROLOL TARTRATE 50 MG TAB PO SCH ×2 (07:49→20:46)
[2017-01-01] MEDS: PANTOprazole SOD 40 MG TAB PO SCH (07:49)
[2017-01-01] MEDS: LISINOPRIL 10 MG TAB PO SCH (07:49)
[2017-01-01] MEDS: FUROSEMIDE 80 MG TAB PO SCH ×2 (07:49→16:58)
[2017-01-01] MEDS: VENLAFAXINE HCL 37.5 MG TAB PO SCH ×2 (07:49→20:46)
[2017-01-01] MEDS ORDERED: AcetaZOLAMIDE 500 MG CAPCR PO SCH (08:00)
[2017-01-01 09:48] LABS: BUN/CREATININE RATIO 26.6 (10-20); CREATININE 0.91 mg/dl (0.60-1.40); POTASSIUM 3.9 mmol/L (3.5-5.1)
[2017-01-01 10:09] LABS: CALCIUM 8.9 mg/dl (8.5-10.1)
[2017-01-01] MEDS: DOCUSATE SODIUM/SENNA 50/8.6MG TAB PO SCH (12:22)
[2017-01-01] MEDS ORDERED: NURSING VERBAL MED ORDER ONE (13:45)
[2017-01-01] MEDS: SIMVASTATIN 40 MG TAB PO SCH (20:44)
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
[2017-01-02] MEDS: HEPARIN SOD 5000 UNIT/0.5 ML CARP SQ SCH ×2 (06:40→13:27)
[2017-01-02 07:14] VITALS: BP 100/54; PULSE 66; TEMP 36.5; O2SAT 92
[2017-01-02] MEDS: PANTOprazole SOD 40 MG TAB PO SCH (07:37)
[2017-01-02] MEDS: METOPROLOL TARTRATE 50 MG TAB PO SCH (07:38)
[2017-01-02] MEDS: FUROSEMIDE 80 MG TAB PO SCH (07:38)
[2017-01-02] MEDS: DOCUSATE SODIUM 100 MG CAP PO SCH (07:38)
[2017-01-02] MEDS: VENLAFAXINE HCL 37.5 MG TAB PO SCH (07:38)
[2017-01-02] MEDS: LISINOPRIL 10 MG TAB PO SCH (07:38)
[2017-01-02] MEDS: POTASSIUM CHLORIDE 10 MEQ TABCR PO SCH (07:38)
[2017-01-02] MEDS: CLOPIDOGREL BISULFATE 75 MG TAB PO SCH (07:38)
[2017-01-02] MEDS: DOCUSATE SODIUM/SENNA 50/8.6MG TAB PO SCH (11:26)
[2017-01-02] MEDS ORDERED: MICONAZOLE NITRATE POWDER 43 GM EXT PRN (11:45)
[2017-01-02 13:07] VITALS: PULSE 88; O2SAT 93
[2017-01-02] MEDS ORDERED: MCTP EXT (13:07)
[2017-01-02] MEDS ORDERED: VENL75CA PO (13:07)
[2017-01-02] MEDS ORDERED: POTA10CA28 PO (13:07)
[2017-01-02] MEDS ORDERED: IPRASOL4 INH (13:07)
[2017-01-02] MEDS ORDERED: LSX80 PO (13:07)
[2017-01-02] MEDS ORDERED: NTRTP TD (13:15)
[2017-01-02] MEDS ORDERED: NITROGLYCERIN 0.3 MG/HR PATCH TD ONE (13:30)
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
[2017-01-02 13:58] VITALS: BP 100/54; PULSE 66; TEMP 36.5; O2SAT 92
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
[2017-01-03] MEDS ORDERED: NITROGLYCERIN 0.3 MG/HR PATCH TD SCH (08:00)
--- NOTE | 2017-01-24 14:28 | Discharge Summary ---
Discharge Summary Date of Service January 02, 2017. Discharge Summary Admission Date: December 26, 2016 at 14:08 Discharge Date: January 02, 2017 Discharge Disposition: Rehab Principal Diagnosis: Metabolic encephalopathy,acute on chronic hypercapnic respiratory failure Problems/Secondary Diagnoses: COPD Acute on chronic diastolic heart failure, right sided MAX noncompliance with CPAP at home CAD HTN History of DVT GERD History of prostate cancer Obesity hypoventilation syndrome Abnormal chest xray Severe major depressive disorder Coronary artery disease Macrocytic anemia Immunizations: Have You Had Influenza Vaccine: Unknown Influenza Vaccine Date: Apr 20, 2013 History of Tetanus Vaccine?: Unknown Tetanus Immunization Date: Aug 22, 2010 History of Pneumococcal: Unknown Pneumococcal Date: Jun 22, 2011 History of Hepatitis B Vaccine: Unknown Procedures: Chest xray Head CT Overnight oximetry test Consultations: Pulmonology Critical Care Medication Reconciliation New Medications: Nitroglycerin (Nitro-Dur) 1 Ea Tdsy 0.3 MG TD DAILY for 30 Days Venlafaxine Hcl (Effexor Xr) 75 Mg Cap 1 CAP PO DAILY for 30 Days, #30 CAP Furosemide (Furosemide) 80 Mg Tab 80 MG PO BID17 for 30 Days, TAB Miconazole Nitrate (Desenex Shake Powder) 43 Appln/43 Gm Powd 1 APPLN EXT PRN PRN for Affected Skin Folds for 30 Days Potassium Chloride (Micro-K Ext Rel) 10 Meq Capcr 20 MEQ PO BID for 30 Days Continued Medications: Acetaminophen (Tylenol) 500 Mg Tab 500 MG PO Q4H PRN for Fever, TAB Calcium Carbonate-Vitamin D (Calcium 600 + D) 1 Tab Tab 1 TABLET PO DAILY Clopidogrel (Plavix) 75 Mg Tab 75 MG PO DAILY, TAB Docusate Sodium (Docusate Sodium) 100 Mg Cap 100 MG PO BID Ipratropium-Albuterol (Duoneb) 3 Ml Nebu 1 TREATMENT INH QID for 30 Days, INHA (This prescription has been renewed) Lisinopril (Zestril) 10 Mg Tab 10 MG PO DAILY, TAB Magnesium Hydroxide (Milk Of Magnesia) 30 Ml Susp 30 ML PO DAILY PRN for Constipation, ML Metoprolol Tartrate (Lopressor) (Lopressor) 50 Mg Tab 50 MG PO BID, TAB Multivitamin (Multivitamin) Tab 1 TABLET PO DAILY, 0 Refills Nitroglycerin (Nitrostat) 0.4 Mg Tab 0.4 MG UT UD PRN for Chest Pain, [address] ONE TABLET UNDER THE TONGUE EVERY 5 MINUTES FOR UP TO 3 DOSES NEEDED FOR CHEST PAIN. IF PAIN PERSIST CALL 911. Pantoprazole (Protonix) 40 Mg Tab 40 MG PO DAILY, #30 TAB Polyethylene Glycol 3350 (Miralax) 1 Pow Pow 17 GM PO DAILY PRN for Constipation, #527 GM Senna/Docusate Sod (Senokot S) 1 Tab Tab 1 TAB PO DAILY@1200, TAB Simvastatin (Zocor) 80 Mg Tab 40 MG PO QPM, TAB Terazosin (Hytrin) 5 Mg Cap 5 MG PO HS, 0 Refills Discharge Exam Physical Exam General Appearance: WD/WN, no apparent distress, + obese Eyes: normal inspection, sclerae normal ENT: hearing grossly normal Neck: trachea midline Respiratory/Chest: no respiratory distress, no accessory muscle use, + decreased breath sounds (throughout) Cardiovascular: regular rate, rhythm, no murmur, + pertinent finding (trace pitting edema to the knees bilaterally) Abdomen: normal bowel sounds, non tender, soft (morbidly obese) Extremities: no calf tenderness Neurologic/Psychiatric: alert Skin: no rash Review of Systems: Constitutional: No fever Eyes: No problem reported ENT: No problem reported Respiratory: No shortness of breath Cardiovascular: No chest pain Abdomen: No pain Musculoskeletal: No problem reported Genitourinary - Male: No problem reported Neurologic: No problem reported Psychiatric: + depression symptoms Endocrine: No problem reported Hematologic / Lymphatic: No problem reported Integumentary: No problem reported Hospital Course 76 yo M with PMHX of COPD, Acute on chronic diastolic heart failure, MAX noncompliance with CPAP at home, CAD, HTN, hx of DVT, GERD and prostate cancer, here with acute on chronic hypercapnic respiratory failure. This is his 3rd admission for the same diagnosis in 2 months. Metabolic encephalopathy secondary to acute on chronic hypercapnic respiratory failure and obesity hypoventilation syndrome. ABG on admission 7.96/72, required ICU stay as was obtunded and requiring NIPPV. MAX with CPAP noncompliance in the past, had BiPAP arranged upon dc from [facility] previously and then declined delivery of BiPAP to his home. Overnight oximetry completed which shows 10 min desaturation < 89%, repeat ABG the AM after overnight oximetry 7.43//88 Abnormal appearing CXR with volume loss on right side with tracheal shift, seems improved on repeat CXR--> mucus plugging? Pt reports h/o chest tube placement after traumatic accident on that side years ago, no previous surgeries - encephalopathy resolved completely - Needs to get established with Pulmonology-consult appreciated--> will need f/u with Dr. Artuor Reece 31-90 days after discharge from [facility] for f/u on BiPAP/ MAX -Pt reports possible adverse rxn to Diamox so will not use in the future for elevated HCO3 COPD- -Duo nebs Pulm recommends around the clock qid, no signs of acute exacerbation Acute on Chronic diastolic heart failure, Cor pulmonale. ECHO 10/2016 with preserved EF - continues to diurese but slowing down, lungs are clear but still with edema in legs much improved, has diuresed 5.7 L net negative this admission - received one dose Zaroxolyn -continue Lasix 80mg BID, KCl replacement -Watch creatinine Severe depressive episode - occurred after his son 06/2016 - He was evaluated by Psychiatry during last admission; suggested a trial of effexor 37.5 mg - started Effexor 37.5mg this admission and continue on discharge and increase dose to 75 mg XR once daily Coronary artery disease-no current issues but after removed Nitropaste, he started having low level tightness at Xiphoid process which he has had in the past relieved with nitro-seen by Cardiology for this in 10/2016 and no further testing deemed necessary as cardiac markers were negative. This is the same pain as he usually gets. -restart NitroDur now and continue on discharge -Continue Plavix 75 mg daily, lisinopril 10 mg daily, metoprolol 50 mg twice daily, simvastatin 40 mg daily GERD-no current issues -Continue pantoprazole 40 mg daily History of DVT-no evidence of current DVT Macrocytic anemia-mild and stable for years at 11.7 hgb, B12 and TSH recently normal, folate not checked, does have h/o drinking EtOH several times weekly. -follow CBC as outpatient -abstain from EtOH History of prostate cancer-stable, follows with Urology HTN - Continue metoprolol 50 mg PO bid and lisinopril 10 mg daily DVT ppx: teds, scds, heparin SQ CODE STATUS: DNR Disposition: to [facility] today Total Time Spent: Greater than 30 minutes This includes examination of the patient, discharge planning, medication reconciliation, and communication with other providers. Discharge Instructions Please refer to the electronic Patient Visit Report (Discharge Instructions) for additional information. Follow-Up PCP within 1 week after dc from [facility] Pulmonology with in 4-6 weeks Additional Copies To Arturo Reece DO; Andie Peace C.R.N.P
== END 2017-01-02 14:21 | DRG 291 ==
LOC: ENRESERVTM → ENRESERVDT → EDBD 10:15 → C.EDB 10:16 → C.MSICU 14:08 → C.MS4W 12-27 12:25
PROVIDERS: ADMIT Internal Medicine; ATTEND Family Medicine
DX: I11.0 Hypertensive heart disease with heart failure (principal); J96.21 Acute and chronic respiratory failure with hypoxia; J96.22 Acute and chronic respiratory failure with hypercapnia; Z68.42 Body mass index [BMI] 45.0-49.9, adult; E66.2 Morbid (severe) obesity with alveolar hypoventilation; I50.33 Acute on chronic diastolic (congestive) heart failure; Z99.89 Dependence on other enabling machines and devices; R91.8 Other nonspecific abnormal finding of lung field; I27.81 Cor pulmonale (chronic); F32.9 Major depressive disorder, single episode, unspecified; D53.9 Nutritional anemia, unspecified; J44.9 Chronic obstructive pulmonary disease, unspecified; I25.10 Atherosclerotic heart disease of native coronary artery without angina pectoris; K21.9 Gastro-esophageal reflux disease without esophagitis; I25.2 Old myocardial infarction; Z86.718 Personal history of other venous thrombosis and embolism; Z85.46 Personal history of malignant neoplasm of prostate; Z79.02 Long term (current) use of antithrombotics/antiplatelets; Z66 Do not resuscitate; Z79.899 Other long term (current) drug therapy; Z87.891 Personal history of nicotine dependence; Z91.19 Patient's noncompliance with other medical treatment and regimen

== ENCOUNTER → 2017-02-04 | Outpatient (CLI) | payer OTHER ==
[~2017-02-04] MED LIST changes: -ACET-1325 PO; -APR25 PO; -BISA1SUP4 PR; -FURO80TA63 PO; -LIDO2SOL19 PO; +LSX80 PO; +MCTP EXT; +NTRTP TD; +POTA10CA28 PO; -SODI1ENE PR; +VENL75CA PO
--- NOTE | 2017-02-04 10:35 | DIAGNOSTIC IMAGING REPORT ---
TWO VIEW CHEST CLINICAL HISTORY: COPD. Dyspnea. FINDINGS: PA and lateral chest radiographs are compared to study dated 12/27/2016. Correlation is made with chest CT dated 10/25/2013. The PA view is degraded by patient rotation. The heart is enlarged and there is atherosclerotic calcification of the thoracic aorta. The pulmonary vasculature is noncongested. There is bibasilar scarring/atelectasis. Subpleural fat deposition is again seen peripherally at the right lung base. There is evidence of superimposed airspace consolidation to indicate pneumonia. No pleural effusion or pneumothorax is seen. The skeletal structures are osteopenic. There are numerous healed bilateral rib fractures. IMPRESSION: Cardiomegaly and chronic parenchymal changes as above. No acute cardiopulmonary abnormality is identified. Electronically signed by: Humberto Lynch M.D. 02/04/2017 10:34 AM Dictated Date/Time: 02/04/2017 10:32 AM
== END | disposition home or self-care (01) ==
LOC: C.RAD1850 10:16
PROVIDERS: ATTEND Physician Assistant Medical
DX: J44.9 Chronic obstructive pulmonary disease, unspecified (principal); J96.10 Chronic respiratory failure, unspecified whether with hypoxia or hypercapnia; I51.7 Cardiomegaly

== ENCOUNTER → 2017-03-21 | Outpatient (CLI) | payer OTHER ==
[2017-03-21 12:32] LABS: BASO % 0.3 %; BASO ABS # 0.02 K/uL (0-0.2); COMPLETE YES; EOS % 2.5 %; HEMATOCRIT 39.4 % (42-52); IG% 0.1 %; LYMPH % 25.7 %; LYMPH ABS # 1.75 K/uL (1.2-3.4); MEAN CELL VOLUME 100.5 fL (80-100); MEAN CORPUSCULAR HEMOGLOBIN 31.6 pg (25-34); MEAN CORPUSCULAR HGB CONC 31.5 g/dl (32-36); MEAN PLATELET VOLUME 11.5 fL (7.4-10.4); MONO % 8.8 %; NEUT % 62.6 %; PLATELET COUNT 273 K/uL (130-400); RED BLOOD COUNT 3.92 M/uL (4.7-6.1)
[2017-03-21 13:13] LABS: BLOOD UREA NITROGEN 18 mg/dl (7-18); BUN/CREATININE RATIO 19.8 (10-20); CALCIUM 9.2 mg/dl (8.5-10.1); CARBON DIOXIDE 36 mmol/L (21-32); CHLORIDE 102 mmol/L (98-107); CREATININE 0.91 mg/dl (0.60-1.40); GLUCOSE 96 mg/dl (70-99); POTASSIUM 4.6 mmol/L (3.5-5.1); SODIUM 140 mmol/L (136-145)
== END | disposition home or self-care (01) ==
LOC: C.LABPVFM 10:26
PROVIDERS: ATTEND Nurse Practitioner
DX: I10 Essential (primary) hypertension (principal); I50.32 Chronic diastolic (congestive) heart failure

== ENCOUNTER → 2017-12-03 | Outpatient (CLI) | payer OTHER ==
[~2017-12-03] MED LIST changes: +PANT1TAB3 PO; -PANT1TAB48 PO
[2017-12-03 13:56] LABS: ALBUMIN 3.5 gm/dl (3.4-5.0); ALT/SGPT 24 U/L (12-78); AST/SGOT 14 U/L (15-37); BLOOD UREA NITROGEN 22 mg/dl (7-18); CALCIUM 9.4 mg/dl (8.5-10.1); CARBON DIOXIDE 31 mmol/L (21-32); CHOLESTEROL 143 mg/dl (0-200); CREATININE 1.08 mg/dl (0.60-1.40); GLUCOSE 95 mg/dl (70-99); POTASSIUM 4.8 mmol/L (3.5-5.1); SODIUM 138 mmol/L (136-145)
[2017-12-03 14:00] LABS: ALKALINE PHOSPHATASE 90 U/L (45-117); LDL CHOLESTEROL CALCULATED 49 mg/dl; TOTAL PROTEIN 7.1 gm/dl (6.4-8.2)
== END | disposition home or self-care (01) ==
LOC: C.LABPVFM 09:21
PROVIDERS: ATTEND Nurse Practitioner
DX: E78.5 Hyperlipidemia, unspecified (principal); I10 Essential (primary) hypertension; R10.9 Unspecified abdominal pain; R11.0 Nausea

== ENCOUNTER → 2017-12-10 | Outpatient (CLI) | payer OTHER ==
--- NOTE | 2017-12-10 09:29 | DIAGNOSTIC IMAGING REPORT ---
ULTRASOUND ABDOMEN COMPLETE CLINICAL HISTORY: Upper abdominal pain. Nausea and bloating. COMPARISON STUDY: Abdominal CT dated 08/17/2013. TECHNIQUE: Real-time, grayscale, and color flow sonography of the abdomen was performed. Images are reviewed in the transverse and longitudinal planes. The examination is degraded by large body habitus. FINDINGS: Liver: The liver is normal in size and heterogeneous in echotexture. There is no intrahepatic biliary ductal dilatation. A 1.5 cm cyst is incidentally noted in the right lobe. The main portal vein is patent. Gallbladder: The gallbladder is normal in appearance. No gallstones are identified. There is no gallbladder wall thickening or pericholecystic fluid. A sonographic Salinas's sign is reportedly absent. The common bile duct measures up to 0.3 cm in diameter. Pancreas: Not well visualized due to overlying bowel gas. Spleen: The spleen is normal in size and echotexture, measuring 10.3 cm in length. Kidneys: The kidneys demonstrate cortical atrophy. There is no hydronephrosis. The right kidney measures 11.9 cm in length and the left kidney measures 11.3 cm in length. No shadowing calculi are identified. Abdominal vasculature: The abdominal aorta is not well visualized due to overlying bowel gas. The IVC is normal as imaged. Ascites: None. IMPRESSION: 1. No acute sonographic abnormality is identified. 2. No gallstones are seen. 3. The kidneys demonstrate cortical atrophy and are without hydronephrosis. 4. The pancreas and abdominal aorta were not well visualized due to overlying bowel gas. Electronically signed by: Humberto Lynch M.D. 12/10/2017 9:28 AM Dictated Date/Time: 12/10/2017 9:24 AM
== END | disposition home or self-care (01) ==
LOC: C.ULTR 08:13
PROVIDERS: ATTEND Nurse Practitioner
DX: R10.9 Unspecified abdominal pain (principal); R11.0 Nausea

== ENCOUNTER 2018-08-28 14:33 | Inpatient (IN) ==
[2018-08-28] MEDS ORDERED: FUROSEMIDE 40 MG/4 ML VIAL IV STA (15:04)
--- NOTE | 2018-08-28 15:23 | XRay Report ---
XR chest 1V portable HISTORY: Dyspnea COMPARISON: Chest 12/27/2016. FINDINGS: There are low lung volumes. No pneumothorax. No pleural effusions. The heart remains mildly enlarged. There is mild central pulmonary vascular congestion without overt edema. Mild elevation of the left hemidiaphragm. Left basilar linear densities favor subsegmental atelectasis. Old, healed ri ght-sided rib fractures. IMPRESSION: No significant change in the cardiomegaly and mild pulmonary congestion congestion. Electronically signed by: Juno Rivera M.D. 08/28/2018 3:21 PM
[2018-08-28 15:27] LABS: Basophils # (auto) 0.02 K/uL (0-0.2); Basophils % (auto) 0.2 %; Eosinophils # (auto) 0.21 K/uL (0-0.5); Eosinophils % (auto) 2.5 %; Hematocrit (blood only) 38.1 % (42-52); Immature Granulocytes # (auto) 0.02 K/uL (0.00-0.02); Immature Granulocytes % (auto) 0.2 %; Lymphocytes # (auto) 1.99 K/uL (1.2-3.4); Lymphocytes % (auto) 23.3 %; Mean Corpuscular Hgb Conc 31.5 g/dL (32-36); Mean Platelet Volume 10.9 fL (7.4-10.4); Monocytes # (auto) 0.62 K/uL (0.11-0.59); Monocytes % (auto) 7.3 %; Neutrophils # (auto) 5.67 K/uL (1.4-6.5); Neutrophils % (auto) 66.5 %; Platelet Count 231 K/uL (130-400); RDW Coefficient of Variation 13.2 % (11.5-14.5); RDW Standard Deviation 49.3 fL (36.4-46.3); White Blood Count 8.53 K/uL (4.8-10.8)
[2018-08-28 15:34] LABS: Alanine Aminotransferase 22 U/L (12-78); Albumin Level 3.4 gm/dl (3.4-5.0); Aspartate Aminotransferase 11 U/L (15-37); BUN Creatinine Ratio 18.5 (10-20); Blood Urea Nitrogen 18 mg/dl (7-18); Calcium 8.5 mg/dl (8.5-10.1); Carbon Dioxide 33 mmol/L (21-32); Chloride 102 mmol/L (98-107); Creatinine Clr Calc Pharmacy 85.8 ml/min; Est GFR (African American) 84.8; Est GFR (Non-African American) 73.2; Glucose 115 mg/dl (70-99); Magnesium 2.4 mg/dl (1.8-2.4); Potassium 3.9 mmol/L (3.5-5.1); Sodium 138 mmol/L (136-145)
[2018-08-28 15:35] LABS: Partial Thromboplastin Time 24.8 Seconds (21.0-31.0); Prothrombin Time 9.7 Seconds (9.0-12.0)
[2018-08-28 15:39] LABS: Albumin Globulin Ratio 0.9 (0.9-2); Alkaline Phosphatase 89 U/L (45-117); Bilirubin,Total 0.3 mg/dl (0.2-1); Globulin 3.6 gm/dl (2.5-4.0); Troponin I < 0.015 ng/ml (0-0.045)
--- NOTE | 2018-08-28 20:03 | Emergency Department Note ---
Entered by Joni Hewitt acting as a scribe for Yamileth Olson MD History of Present Illness General Chief complaint: Shortness of Breath/Dyspnea Source: patient History of Present Illness Onset (ago): day(s) (past couple) Location: chest (lungs) Pain Consistency: + other (persistent) Quality: + other (shortness of breath) Exacerbated By: + other (lying down) Associated symptoms: + chest pain (yesterday and this morning), + cough and + other (swelling) The patient is a 78 year old male who presents to the Emergency Room with complaints of persistent shortness of breath for the past couple of days. He states that his symptoms are exacerbated by lying down. The patient reports that he also feels generally swollen. He states that his ankles are more swollen than baseline and are currently sore. He reports that the last time his weight was checked one month ago, he was 285 pounds but is now around 300 pounds. He reports a history of CHF and COPD. He states that he chronically wears two liters of supplemental oxygen at home. He reports a cough. He denies current chest pain but states that he had some this morning and yesterday. He notes that he has recently been urinating �quite a bit.� He reports that he regularly takes 80 mg Lasix twice daily and has not missed any doses. He states that he does not use blood thinners. His PCP is JONATHAN [facility] Home Medications Home Medications Medication Instructions Recorded Confirmed Type calcium carbonate-vitamin D3 1 tab PO QAM 08/28/18 08/28/18 History [Caltrate 600 + D] clopidogrel 75 mg PO QAM 08/28/18 08/28/18 History docusate sodium [Colace] 100 mg PO BIDM 08/28/18 08/28/18 History furosemide 80 mg PO QAM 08/28/18 08/28/18 History ipratropium-albuterol 3 ml INHALATION QID 08/28/18 08/28/18 History lisinopril 10 mg PO QAM 08/28/18 08/28/18 History metoprolol tartrate 50 mg PO BID 08/28/18 08/28/18 History multivitamin 1 tab PO QAM 08/28/18 08/28/18 History nitroglycerin 1 patch TRANSDERMAL QAM 08/28/18 08/28/18 History nitroglycerin [Nitrostat] 0.4 mg SUBLINGUAL UD 08/28/18 08/28/18 History omeprazole 20 mg PO PM 08/28/18 08/28/18 History potassium chloride 20 meq PO BIDM 08/28/18 08/28/18 History simvastatin 40 mg PO PM 08/28/18 08/28/18 History terazosin 5 mg PO HS 08/28/18 08/28/18 History aspirin [Ecotrin Low Strength] 81 mg PO QAM #30 tab 08/29/18 Rx Allergies Allergy/AdvReac Type Severity Reaction Status Date / Time No Known Allergies Allergy Unknown Verified 08/28/18 17:05 Past Med/Surg History Medical History Myocardial infarct (Resolved) TIA (transient ischemic attack) (Resolved) Heart disease (Chronic) Cancer of prostate (Resolved) CHF (congestive heart failure) (Chronic) COPD (chronic obstructive pulmonary disease) (Chronic) DVT (deep venous thrombosis) (Resolved) Hypercholesteremia (Chronic) HTN (hypertension) (Chronic) Social History Current Living Situation: Spouse Other Information That Helps Us Care for You: No Feels Safe at Home: Yes Safety Concerns: Feels Safe At This Time Smoking Status: Former smoker Do You Dip or Chew Tobacco: No Smoking End Date: 1998 Hx Alcohol Use: Yes Alcohol type: beer Alcohol Intake Frequency: holidays/ special occasions only Hx Substance Use: No Beliefs That Will Affect Care: None Preferred Language: Tamazight Review of Systems See HPI for pertinent positives & negatives. and A total of 10 systems reviewed and were otherwise negative Physical Exam Vital Signs Vital Signs - 24 hr 08/28/18 14:45 08/28/18 15:19 08/28/18 15:24 Temperature 36.6 C Temperature Source Oral Sepsis Recent Fever Within 48 Hours No Sepsis New/Unexplained Change in Mental Status No Sepsis Action Taken by Nursing No Action Required Pulse Rate 67 Pulse Rate [Apical] 67 Respiratory Rate 36 H 20 Respiratory Effort / Characteristics Labored Respiratory Pattern Tachypnea Blood Pressure 136/88 Blood Pressure [Right Arm] 151/50 H Blood Pressure Mean 104 Blood Pressure Mean [Right Arm] 83 Pulse Oximetry 94 95 95 Oxygen Delivery Method Nasal Cannula Nasal Cannula Nasal Cannula Oxygen Flow Rate 2 2 2 08/28/18 18:48 Temperature Temperature Source Sepsis Recent Fever Within 48 Hours Sepsis New/Unexplained Change in Mental Status Sepsis Action Taken by Nursing Pulse Rate Pulse Rate [Apical] 70 Respiratory Rate 20 Respiratory Effort / Characteristics Respiratory Pattern Blood Pressure Blood Pressure [Right Arm] 137/63 Blood Pressure Mean Blood Pressure Mean [Right Arm] 87 Pulse Oximetry 94 Oxygen Delivery Method Nasal Cannula Oxygen Flow Rate 2 Vital signs reviewed. General: Morbidly obese male on nasal cannula, in no significant distress. HEENT: No scleral icterus, PERRLA, neck supple. Atraumatic. Cardiovascular: Regular rate and rhythm, no extra sounds. Pulmonary: Diminished breath sounds bilaterally, slightly increased work of breathing. Abdomen: Soft, nontender, nondistended, positive bowel sounds. Musculoskeletal: Atraumatic. 3+ lower extremity pitting edema bilaterally. Venous stasis changes distally. Neurologic: Patient awake alert and oriented x 3 Skin: Warm, dry, no rash. Changes to BLE as above. Course 1502: Past medical records reviewed. The patient was evaluated in room C6, and a complete history and physical examination were performed. 1655: I consulted Dr. Banegas [facility] Hospitalist. He will reevaluate the patient for hospitalization. 1735: I updated the patient on his results and the plan. Consultations Consultation #1: I consulted Dr. Banegas [facility] Hospitalist. He will reevaluate the patient for hospitalization. Time: 16:55 Administered Medications Discontinued Medications Albuterol (Duoneb) 3 ml INH QIDR [facility] Stop: 09/28/18 00:00 Last Admin: 08/29/18 19:02 Dose: Not Given Admin: 08/29/18 15:39 Dose: 3 ml Admin: 08/29/18 11:15 Dose: 3 ml Admin: 08/29/18 07:06 Dose: 3 ml Admin: 08/29/18 03:36 Dose: Not Given Aspir[facility] ([facility]rin [facility]) [facility] Stop: 09/28/18 08:59 Last Admin: 08/29/18 07:50 Dose: 81 mg Clopidogrel Bisulfate (Plavix) 75 mg PO QAM [facility] Stop: 09/28/18 08:59 Last Admin: 08/29/18 07:46 Dose: 75 mg Docusate Sodium (Colace) 100 mg PO BIDM [facility] Stop: 09/28/18 07:59 Last Admin: 08/29/18 17:31 Dose: 100 mg Admin: 08/29/18 07:45 Dose: 100 mg Furosemide (Lasix) 80 mg IV NOW STA Stop: 08/28/18 15:05 Last Admin: 08/28/18 15:20 Dose: 80 mg Heparin Sodium (Porcine) (Heparin Sodium (Porcine)) 5,000 units SQ Q8 [facility] Stop: 09/28/18 00:00 Last Admin: 08/29/18 14:24 Dose: Not Given Admin: 08/29/18 07:47 Dose: 5,000 units Admin: 08/29/18 00:34 Dose: 5,000 units Furosemide 80 mg/ Syringe 8 mls @ 4 mls/min IV BID [facility] AL[facility]ERTO Stop: 09/28/18 08:59 Last Admin: 08/29/18 07:46 Dose: 4 mls/min Lisinopril (Zestril) 10 mg PO QAM [facility] Stop: 09/28/18 08:59 Last Admin: 08/29/18 07:46 Dose: 10 mg Metoprolol Tartrate (Lopressor) 50 mg PO BID [facility] AL[facility] Stop: 09/27/18 23:32 Last Admin: 08/29/18 07:45 Dose: 50 mg Admin: 08/29/18 00:34 Dose: 50 mg Miscellaneous (Remove Nitro-Dur Patch) 1 ea N/A DAILY@2100 [facility] Stop: 09/28/18 00:00 Last Admin: 08/29/18 00:35 Dose: 1 ea Nitroglycerin (Nitro-Dur 0.4mg/Hr) 1 patch TD QAM [facility] Stop: 09/28/18 08:59 Last Admin: 08/29/18 07:46 Dose: 1 patch Pantoprazole Sodium (Protonix) 40 mg PO HS [facility] Stop: 09/28/18 00:00 Last Admin: 08/29/18 00:34 Dose: 40 mg Simvastatin (Zocor) 40 mg PO PM [facility] Stop: 09/27/18 23:32 Last Admin: 08/29/18 01:10 Dose: 40 mg Terazosin HCl (Hytrin) 5 mg PO HS [facility] Stop: 09/27/18 23:32 Last Admin: 08/29/18 00:34 Dose: 5 mg Medical Decision Making Differential Diagnosis Differential diagnosis: Etiologies such as infections, reactive airway disease, pneumonia, pneumothorax , COPD, CHF, cardiac ischemia, pulmonary embolism, musculoskeletal, gastrointestinal, as well as others were entertained. Medical Records Attestation: I reviewed the patient's medical records. Home Medications Current Medication List: was personally reviewed by me Laboratory Data Attestation: I reviewed the patient's lab results. Result diagrams: 08/29/18 06:12 08/29/18 06:12 Lab Results 08/28/18 08/28/18 08/28/18 Range/Units 14:23 14:23 14:23 WBC 8.53 (4.8-10.8) K/uL RBC 3.70 L (4.7-6.1) M/uL Hgb 12.0 L (14.0-18.0) g/dL Hct 38.1 L (42-52) % MCV 103.0 H (80-100) fL MCH 32.4 (25-34) pg MCHC 31.5 L (32-36) g/dL RDW Std Deviation 49.3 H (36.4-46.3) fL RDW Coeff of Luciano 13.2 (11.5-14.5) % Plt Count 231 (130-400) K/uL MPV 10.9 H (7.4-10.4) fL Immature Gran % (Auto) 0.2 % Neut % (Auto) 66.5 % Lymph % (Auto) 23.3 % [place] % (Auto) 7.3 % Eos % (Auto) 2.5 % Baso % (Auto) 0.2 % Immature Gran # (Auto) 0.02 (0.00-0.02) K/uL Neut # (Auto) 5.67 (1.4-6.5) K/uL Lymph # (Auto) 1.99 (1.2-3.4) K/uL [place] # (Auto) 0.62 H (0.11-0.59) K/uL Eos # (Auto) 0.21 (0-0.5) K/uL Baso # (Auto) 0.02 (0-0.2) K/uL PT 9.7 (9.0-12.0) Seconds INR 1.0 (0.9-1.1) APTT 24.8 (21.0-31.0) Seconds PTT Ratio 1.0 Sodium 138 (136-145) mmol/L Potassium 3.9 (3.5-5.1) mmol/L Chloride 102 (98-107) mmol/L Carbon Dioxide 33 H (21-32) mmol/L Anion Gap 3.0 (3-11) BUN 18 (7-18) mg/dl Creatinine 0.99 (0.6-1.4) mg/dl Est Cr Clr Drug Dosing 85.8 ml/min Est GFR ( Amer) 84.8 Est GFR (Non-Af Amer) 73.2 BUN/Creatinine Ratio 18.5 (10-20) Glucose 115 H (70-99) mg/dl Calcium 8.5 (8.5-10.1) mg/dl Phosphorus Magnesium 2.4 (1.8-2.4) mg/dl Total Bilirubin 0.3 (0.2-1) mg/dl AST 11 L (15-37) U/L ALT 22 (12-78) U/L Alkaline Phosphatase 89 (45-117) U/L Troponin I < 0.015 (0-0.045) ng/ml Total Protein 7.0 (6.4-8.2) gm/dl Albumin 3.4 (3.4-5.0) gm/dl Globulin 3.6 (2.5-4.0) gm/dl Albumin/Globulin Ratio 0.9 (0.9-2) Urine Color Urine Appearance (Clear) Urine pH (4.5-7.5) Ur Specific [place] (1.000-1.030) Urine Protein (Negative) Urine Glucose (UA) (Negative) Urine Ketones (Negative) Urine Blood (Negative) Urine Nitrite (Negative) Urine Bilirubin (Negative) Urine Urobilinogen (Negative) Ur Leukocyte Esterase (Negative) 08/28/18 08/29/18 08/29/18 Range/Units 23:43 01:35 06:12 WBC (4.8-10.8) K/uL RBC (4.7-6.1) M/uL Hgb (14.0-18.0) g/dL Hct (42-52) % MCV (80-100) fL MCH (25-34) pg MCHC (32-36) g/dL RDW Std Deviation (36.4-46.3) fL RDW Coeff of Luciano (11.5-14.5) % Plt Count (130-400) K/uL MPV (7.4-10.4) fL Immature Gran % (Auto) % Neut % (Auto) % Lymph % (Auto) % [place] % (Auto) % Eos % (Auto) % Baso % (Auto) % Immature Gran # (Auto) (0.00-0.02) K/uL Neut # (Auto) (1.4-6.5) K/uL Lymph # (Auto) (1.2-3.4) K/uL [place] # (Auto) (0.11-0.59) K/uL Eos # (Auto) (0-0.5) K/uL Baso # (Auto) (0-0.2) K/uL PT (9.0-12.0) Seconds INR (0.9-1.1) APTT (21.0-31.0) Seconds PTT Ratio Sodium 140 (136-145) mmol/L Potassium 3.7 (3.5-5.1) mmol/L Chloride 102 (98-107) mmol/L Carbon Dioxide 35 H (21-32) mmol/L Anion Gap 3.0 (3-11) BUN 20 H (7-18) mg/dl Creatinine 1.11 (0.6-1.4) mg/dl Est Cr Clr Drug Dosing 76.5 ml/min Est GFR ( Amer) 73.8 Est GFR (Non-Af Amer) 63.7 BUN/Creatinine Ratio 17.7 (10-20) Glucose 98 (70-99) mg/dl Calcium 8.5 (8.5-10.1) mg/dl Phosphorus Cancelled Magnesium Cancelled (1.8-2.4) mg/dl Total Bilirubin (0.2-1) mg/dl AST (15-37) U/L ALT (12-78) U/L Alkaline Phosphatase (45-117) U/L Troponin I < 0.015 (0-0.045) ng/ml Total Protein (6.4-8.2) gm/dl Albumin (3.4-5.0) gm/dl Globulin (2.5-4.0) gm/dl Albumin/Globulin Ratio (0.9-2) Urine Color Dark Yellow Urine Appearance Clear (Clear) Urine pH 7.0 (4.5-7.5) Ur Specific [place] 1.017 (1.000-1.030) Urine Protein Negative (Negative) Urine Glucose (UA) Negative (Negative) Urine Ketones Negative (Negative) Urine Blood Negative (Negative) Urine Nitrite Negative (Negative) Urine Bilirubin Negative (Negative) Urine Urobilinogen Negative (Negative) Ur Leukocyte Esterase Negative (Negative) 08/29/18 08/29/18 08/29/18 Range/Units 06:12 06:12 06:12 WBC 6.13 (4.8-10.8) K/uL RBC 3.49 L (4.7-6.1) M/uL Hgb 11.2 L (14.0-18.0) g/dL Hct 35.6 L (42-52) % MCV 102.0 H (80-100) fL MCH 32.1 (25-34) pg MCHC 31.5 L (32-36) g/dL RDW Std Deviation 50.4 H (36.4-46.3) fL RDW Coeff of Luciano 13.5 (11.5-14.5) % Plt Count 208 (130-400) K/uL MPV 10.6 H (7.4-10.4) fL Immature Gran % (Auto) 0.0 % Neut % (Auto) 67.8 % Lymph % (Auto) 19.9 % [place] % (Auto) 9.6 % Eos % (Auto) 2.4 % Baso % (Auto) 0.3 % Immature Gran # (Auto) 0.00 (0.00-0.02) K/uL Neut # (Auto) 4.15 (1.4-6.5) K/uL Lymph # (Auto) 1.22 (1.2-3.4) K/uL [place] # (Auto) 0.59 (0.11-0.59) K/uL Eos # (Auto) 0.15 (0-0.5) K/uL Baso # (Auto) 0.02 (0-0.2) K/uL PT (9.0-12.0) Seconds INR (0.9-1.1) APTT (21.0-31.0) Seconds PTT Ratio Sodium 140 (136-145) mmol/L Potassium 3.7 (3.5-5.1) mmol/L Chloride 103 (98-107) mmol/L Carbon Dioxide 36 H (21-32) mmol/L Anion Gap 1.0 L (3-11) BUN 20 H (7-18) mg/dl Creatinine 0.97 (0.6-1.4) mg/dl Est Cr Clr Drug Dosing 84.7 ml/min Est GFR ( Amer) 86.9 Est GFR (Non-Af Amer) 75.0 BUN/Creatinine Ratio 20.6 H (10-20) Glucose 93 (70-99) mg/dl Calcium 8.3 L (8.5-10.1) mg/dl Phosphorus 3.3 Magnesium 2.5 H (1.8-2.4) mg/dl Total Bilirubin (0.2-1) mg/dl AST (15-37) U/L ALT (12-78) U/L Alkaline Phosphatase (45-117) U/L Troponin I Cancelled < 0.015 (0-0.045) ng/ml Total Protein (6.4-8.2) gm/dl Albumin (3.4-5.0) gm/dl Globulin (2.5-4.0) gm/dl Albumin/Globulin Ratio (0.9-2) Urine Color Urine Appearance (Clear) Urine pH (4.5-7.5) Ur Specific [place] (1.000-1.030) Urine Protein (Negative) Urine Glucose (UA) (Negative) Urine Ketones (Negative) Urine Blood (Negative) Urine Nitrite (Negative) Urine Bilirubin (Negative) Urine Urobilinogen (Negative) Ur Leukocyte Esterase (Negative) Imaging Data Radiologist's Impression: Radiology results as stated below per my review and the radiologist's interpretation: XR chest 1V portable HISTORY: Dyspnea COMPARISON: Chest 12/27/2016. FINDINGS: There are low lung volumes. No pneumothorax. No pleural effusions. The heart remains mildly enlarged. There is mild central pulmonary vascular congestion without overt edema. Mild elevation of the left hemidiaphragm. Left basilar linear densities favor subsegmental atelectasis. Old, healed right- sided rib fractures. IMPRESSION: No significant change in the cardiomegaly and mild pulmonary congestion. Electronically signed by: Juno Rivera M.D. 08/28/2018 3:21 PM ECG Data Attestation: I personally reviewed and interpreted this ECG as follows: Indication: SOB/dyspnea Rate (beats per minute): 70 Rhythm: normal sinus Findings: + other (nonspecific T-wave abnormalities; QTc 434); no PAC, no PVC, no ST depression and no ST elevation Additional Comments: Repeat ECG shows a normal sinus rhythm of 72. There are no acute ischemic changes and no ectopy. There is T-wave flattening noted diffusely. Blood Pressure Blood Pressure Findings: Elevated blood pressure Blood Pressure Disposition: further management by hospitalist MDM Narrative This pt was evaluated and appeared to be in no distress. IV access was obtained and lab work was drawn. CXR confirms cardiomegaly and vascular congestion. Pt has significant BLE edema. Pt was given Lasix 80 mg IV. Pt did begin to diurese. He was on his home O2 at 2 L maintaining at rest. Pt c/ o intermittent CP. Trop is negative but given history CHF, CAD and WI, he will be evaluted for further management by the hospitalist service for further management. Pt is aware of the plan and agrees. Impression & Plan Substernal chest pain, Fluid overload, Mild congestive heart failure Discharge Plan Visit Data *Final* Discharge Date/Time: 08/28/18 22:44 Chief Complaint: Shortness of Breath/Dyspnea ED Provider: Yamileth Olson Discharge Problem: Substernal chest pain, Fluid overload, Mild congestive heart failure Patient Disposition: Admitted As Inpatient Condition: Fair Discharge Instructions Interventions: ED Discharge Assessment Last Done: 08/28/18 22:44 The scribe's documentation has been prepared under my direction and personally reviewed by me in its entirety. I confirm that the note above accurately reflects all work, treatment, procedures, and medical decision making performed by me.
--- NOTE | 2018-08-28 21:30 | History & Physical Report ---
Date of Service August 28, 2018 Assessment & Plan (1) Substernal chest pain: Brice Osei is a 78 y.o male with history of heart failure, COPD, CAD, HTN, HLD, TIA, admitted with acute onset sob/chest pain found to have acute heart failure exacerbation. 1. Heart failure Exacerbation - May be secondary to non-compliance of medications, pt is taking Lasix 80mg Daily and per records he should be taking 80mg PO BID -Is currently requiring 3L O2 per NC when baseline is 2L O2 per NC -EKG findings: normal sinus rhythm with HR in 70s, repeat EKG in AM -Troponin negative x 2 (< 0.015) -CXR portable: no effusion, low lung volume, mild cardiomegaly -CXR A/P ordered for AM -Unclear of when last EcHO was completed, ECHO pending -Has improved after lasix 80mg IV x 1 given in ED -Monitor I/O with fluid restriction of 1500cc/day -Will plan to admit to tele and continue Lasix 80mg IV BID until has reached euvolemic state. 2. Chest Pain -Resolved since admission -Trops negative -Will continue to monitor on tele -Nitro per home regimen 3. COPD -No current exacerbation -Continue home regimen (duoneb QID) -Goal to return to baseline O2 requirement of 2L 4. HTN -Continue Lisinopril and Metoprolol 5. CAD -Continue Plavix per home regimen, ASA added 6. BPH -Continue home Terazosin 7. MAX -Bipap ordered FEN/GI Fluids: None Electrolytes: Monitor and Replace Nutrition: Heart Healthy Activity: up with assist GI PPx: Protonix DVT PPx: Heparin Code: Full Code Dispo: Inpt admission for heart failure exacerbation. Dispo to home when at baseline. (2) Fluid overload: (3) Mild congestive heart failure: (4) CHF (congestive heart failure): (5) COPD (chronic obstructive pulmonary disease): (6) HTN (hypertension): History of Present Illness Chief Complaint: shortness of breath Primary Care Provider: JONATHAN Russo Brice Osei is a 78 y.o male with history of heart failure and COPD seen in ED for shortness of breath that is acute in onset and started 2 days ago. History per patient. Has been having to sit upright to sleep and has dyspnea at rest and on exertion. Came to ED because he started to have chest pain during the morning and evening. Reports that he has been compliant with medications and is taking 80mg Lasix daily. Has not noticed weight gain and is voiding frequently. Is on home O2 2L continuously. He is currently feeling much better after lasix given in the ED. SOB has improved. Was admitted one year ago with similar complaint. Weight has increased by 15 pounds in one month but states that he doesn't feel like he's gained that much weight. Denies current chest pain. Denies zambrano, n/v/diarrhea. Denies lightheadedness. ED Course: Given Lasix 80 per IV PMHx: 1. Heart Failure 2. COPD 3. HTN 4. CAD 5. BPH 6. DVT 7. HLD Social: Lives with in [place]. Remote hx of tobacco use 3-4 yrs with cessation in 1998. Beer on occassion. Denies history of drug use. Allergies Allergy/AdvReac Type Severity Reaction Status Date / Time No Known Allergies Allergy Unknown Verified 08/28/18 17:05 Home Medications Home Medications Medication Instructions Recorded Confirmed Type calcium carbonate-vitamin D3 1 tab PO QAM 08/28/18 08/28/18 History [Caltrate 600 + D] clopidogrel 75 mg PO QAM 08/28/18 08/28/18 History docusate sodium [Colace] 100 mg PO BIDM 08/28/18 08/28/18 History furosemide 80 mg PO QAM 08/28/18 08/28/18 History ipratropium-albuterol 3 ml INHALATION QID 08/28/18 08/28/18 History lisinopril 10 mg PO QAM 08/28/18 08/28/18 History metoprolol tartrate 50 mg PO BID 08/28/18 08/28/18 History multivitamin 1 tab PO QAM 08/28/18 08/28/18 History nitroglycerin 1 patch TRANSDERMAL QA 08/28/18 08/28/18 History nitroglycerin [Nitrostat] 0.4 mg SUBLINGUAL UD 08/28/18 08/28/18 History omeprazole 20 mg PO PM 08/28/18 08/28/18 History potassium chloride 20 meq PO BIDM 08/28/18 08/28/18 History simvastatin 40 mg PO PM 08/28/18 08/28/18 History terazosin 5 mg PO HS 08/28/18 08/28/18 History Past Med/Surg History Medical History Myocardial infarct (Resolved) TIA (transient ischemic attack) (Resolved) Heart disease (Chronic) Cancer of prostate (Resolved) CHF (congestive heart failure) (Chronic) COPD (chronic obstructive pulmonary disease) (Chronic) DVT (deep venous thrombosis) (Resolved) Hypercholesteremia (Chronic) HTN (hypertension) (Chronic) Social History Current Living Situation: Spouse Other Information That Helps Us Care for You: No Feels Safe at Home: Yes Safety Concerns: Feels Safe At This Time Smoking Status: Former smoker Do You Dip or Chew Tobacco: No Smoking End Date: 1998 Hx Alcohol Use: Yes Alcohol type: beer Alcohol Intake Frequency: holidays/ special occasions only Hx Substance Use: No Beliefs That Will Affect Care: None Preferred Language: Pashto Communication Ability: Effective Hospital Superintendent Required: No Review of Systems Constitutional: no fever, no chills and no sweats Eyes: no worsening vision Ear, Nose, Mouth, Throat: no ear pain and no nasal congestion Respiratory: + cough and + sputum production (at baseline); no wheezing Cardiovascular: + chest pain and + dyspnea; no radiating jaw, neck or arm pain Gastrointestinal: no abdominal pain, no nausea and no vomiting Genitourinary (Male): no dysuria and no urinary hesitancy Musculoskeletal: no back pain, no neck pain and no joint pain Integumentary: no rash and no lesions Neurologic: no falls, no tingling and no paresthesia Psychiatric: no depression Physical Exam 2 Vital Signs (Past 24 Hours): Last Vital Signs Temp 36.6 C 08/28/18 14:45 Pulse 70 08/28/18 18:48 Resp 20 08/28/18 18:48 BP 137/63 08/28/18 18:48 Pulse Ox 94 08/28/18 18:48 Constitutional: well developed, + morbidly obese and cooperative; not ill appearing and not in distress Eyes: PERRL, conjunctivae normal, anicteric sclerae ENMT: external ear and nose normal, oropharynx normal Neck: supple, negative LAD Respiratory: normal respiratory effort; no respiratory distress Auscultation: + diminished lung sounds (bilateral lower lung ponce); no crackles, no rales and no wheezes increased respiratory effort mild pursing of lips Cardiovascular: RRR, no murmur, no edema Heart Sounds: normal S1 and normal S2 Extremities: + edema (bilateral non-pitting edema) Gastrointestinal (Abdomen): obese, distended, nttp, bowel sounds present Skin: moderate hemosiderin changes on bilateral lower extremity anterior and dorsal surface Neurologic: PERRL, EOMI, accommodation nl, no face palsy, no dysarthria CN' s II-XI intact bilaterally Psychiatric: A+Ox3, euthymic affect Eye Contact: good eye contact Lymphatic: no lymphadenopathy Results & Data Laboratory Results K+ 3.7 CO2 35 Troponin < 0.015 x 2 Diagnostic Findings CXR No significant change in the cardiomegaly and mild pulmonary congestion congestion. ECG Additional Comments: EKG Normal sinus rhythm with HR of 72 Code Status & VTE Plan Code Status Full code VTE Prophylaxis Plan VTE Prophylaxis will be ordered: Yes Supervising Physician Co-Signing Physician Notes Patient seen and examined, chart reviewed, case discussed with Dr. Jackson and I agree with her assessment and plan as documented above. Briefly, patient is a 78yo male with CHF, COPD, CAD, HTN and HLP presenting with 2-3 days of progressive dyspnea as well as orthopnea and weight gain. Had two episodes of CP yesterday that resolved spontaneously. GIven Lasix in ER with mild improvement in symptoms. On physical exam he is afebrile, hemodynamically stable, sitting at edge of bed due to SOB Obese Heart - +S1/S2, regular, no m/r/g Lungs - CTA Abd - +BS, soft, NT/ND Ext = warm,. 2+ pulses, no edema Labs and images reviewed Assessment/Plan: suspect acute exacerbation of CHF. WIll admit to medical floor with telemetry - Diuresis with Lasix 80mg IV BID, monitor BMP BID, daily weights and fluid restriction. Repeat echocardiogram. Remainder of plan as above. _ (1) Fluid overload Hypervolemia type: unspecified Qualified Code(s): E87.70 - Fluid overload, unspecified
[2018-08-28] MEDS ORDERED: ACETAMINOPHEN 325 MG TAB PO PRN (23:33)
[2018-08-28] MEDS ORDERED: ONDANSETRON INJ 2 MG/ML 2 ML VIAL IV PRN (23:33)
[2018-08-28] MEDS ORDERED: MAGNESIUM HYDROXIDE SUSP 30 ML UDC PO PRN (23:33)
[2018-08-28] MEDS ORDERED: TERAZOSIN HCL 5 MG CAP PO SCH (23:33)
[2018-08-28] MEDS ORDERED: SIMVASTATIN 40 MG TAB PO SCH (23:33)
[2018-08-28] MEDS ORDERED: ALUMINUM/MAGNESIUM SUSP 30 ML UDC PO PRN (23:33)
[2018-08-29] MEDS ORDERED: PANTOprazole 40 MG TAB PO STA (00:01)
[2018-08-29 00:05] LABS: BUN Creatinine Ratio 17.7 (10-20); Blood Urea Nitrogen 20 mg/dl (7-18); Calcium 8.5 mg/dl (8.5-10.1); Carbon Dioxide 35 mmol/L (21-32); Chloride 102 mmol/L (98-107); Creatinine Clr Calc Pharmacy 76.5 ml/min; Est GFR (African American) 73.8; Est GFR (Non-African American) 63.7; Glucose 98 mg/dl (70-99); Potassium 3.7 mmol/L (3.5-5.1); Sodium 140 mmol/L (136-145)
[2018-08-29 00:10] LABS: Troponin I < 0.015 ng/ml (0-0.045)
[2018-08-29] MEDS: HEPARIN SOD 5,000 UNIT/0.5 ML VIAL SQ SCH ×3 (00:34→14:24)
[2018-08-29] MEDS: METOPROLOL TARTRATE 50 MG TAB PO SCH ×2 (00:34→07:45)
[2018-08-29 01:49] LABS: Appearance Urine Clear (Clear); Bilirubin Urine Negative (Negative); Color Urine Dark Yellow; Glucose Urine UA Negative (Negative); Ketones Urine Negative (Negative); Leukocyte Esterase Urine Negative (Negative); Nitrite Urine Negative (Negative); Protein Urine Negative (Negative); Specific Gravity Urine 1.017 (1.000-1.030); Urobilinogen Urine Negative (Negative)
[2018-08-29] MEDS: ALBUT/IPRATROP 3MG/0.5MG NEB 3 ML VIAL INH SCH ×5 (03:36→19:02)
[2018-08-29 06:32] LABS: Basophils # (auto) 0.02 K/uL (0-0.2); Basophils % (auto) 0.3 %; Eosinophils # (auto) 0.15 K/uL (0-0.5); Eosinophils % (auto) 2.4 %; Hematocrit (blood only) 35.6 % (42-52); Hemoglobin 11.2 g/dL (14.0-18.0); Lymphocytes # (auto) 1.22 K/uL (1.2-3.4); Lymphocytes % (auto) 19.9 %; Mean Corpuscular Hgb Conc 31.5 g/dL (32-36); Mean Platelet Volume 10.6 fL (7.4-10.4); Monocytes # (auto) 0.59 K/uL (0.11-0.59); Monocytes % (auto) 9.6 %; Neutrophils # (auto) 4.15 K/uL (1.4-6.5); Neutrophils % (auto) 67.8 %; Platelet Count 208 K/uL (130-400); RDW Coefficient of Variation 13.5 % (11.5-14.5); RDW Standard Deviation 50.4 fL (36.4-46.3); Red Blood Count 3.49 M/uL (4.7-6.1); White Blood Count 6.13 K/uL (4.8-10.8)
[2018-08-29 07:15] LABS: BUN Creatinine Ratio 20.6 (10-20); Blood Urea Nitrogen 20 mg/dl (7-18); Calcium 8.3 mg/dl (8.5-10.1); Carbon Dioxide 36 mmol/L (21-32); Chloride 103 mmol/L (98-107); Creatinine Clr Calc Pharmacy 84.7 ml/min; Est GFR (African American) 86.9; Glucose 93 mg/dl (70-99); Magnesium 2.5 mg/dl (1.8-2.4); Potassium 3.7 mmol/L (3.5-5.1); Sodium 140 mmol/L (136-145)
[2018-08-29 07:20] LABS: Phosphorus 3.3 mg/dl (2.5-4.9); Troponin I < 0.015 ng/ml (0-0.045)
[2018-08-29] MEDS: DOCUSATE SODIUM 100 MG CAP PO SCH ×2 (07:45→17:31)
[2018-08-29] MEDS ORDERED: FUROSEMIDE 80 MG in SYRINGE 0 ML IV SCH (09:00)
[2018-08-29] MEDS ORDERED: ASPIRIN 81 MG ECTAB PO SCH (09:00)
[2018-08-29] MEDS ORDERED: CLOPIDOGREL BISULFATE 75 MG TAB PO SCH (09:00)
[2018-08-29] MEDS ORDERED: FUROSEMIDE 40 MG/4 ML VIAL IV SCH (09:00)
[2018-08-29] MEDS ORDERED: LISINOPRIL 10 MG TAB PO SCH (09:00)
[2018-08-29] MEDS ORDERED: NITROGLYCERIN 0.4 MG/HR PATCH TD SCH (09:00)
[2018-08-29] MEDS ORDERED: PANTOprazole 40 MG TAB PO SCH ×2 (09:00)
--- NOTE | 2018-08-29 09:05 | XRay Report ---
XR chest 2V routine CLINICAL HISTORY: heart failure exacerbation COMPARISON STUDY: 08/28/2018 FINDINGS: The cardiac and mediastinal contours remain stable. There are multiple old right-sided rib fractures. There is no current evidence of failure. There are no significant pleural effusions. There is mild basilar atelectasis.[ IMPRESSION: 1. Stable mild cardiomegaly 2. No evidence of failure 3. Mild basilar atelectasis 4. Old right chest wall deformity Electronically signed by: Marcelino Kim M.D. 08/29/2018 9:03 AM
--- NOTE | 2018-08-29 17:36 | Discharge Summary ---
Date of Service August 29, 2018 Admission HPI Per Admitting Provider Brice Osei is a 78 y.o male with history of heart failure and COPD seen in ED for shortness of breath that is acute in onset and started 2 days ago. History per patient. Has been having to sit upright to sleep and has dyspnea at rest and on exertion. Came to ED because he started to have chest pain during the morning and evening. Reports that he has been compliant with medications and is taking 80mg Lasix daily. Has not noticed weight gain and is voiding frequently. Is on home O2 2L continuously. He is currently feeling much better after lasix given in the ED. SOB has improved. Was admitted one year ago with similar complaint. Weight has increased by 15 pounds in one month but states that he doesn't feel like he's gained that much weight. Denies current chest pain. Denies zambrano, n/v/diarrhea. Denies lightheadedness. ED Course: Given Lasix 80 per IV PMHx: 1. Heart Failure 2. COPD 3. HTN 4. CAD 5. BPH 6. DVT 7. HLD Social: Lives with in [place]. Remote hx of tobacco use 3-4 yrs with cessation in 1998. Beer on occassion. Denies history of drug use. Principal Diagnosis acute exacerbation of chronic diastolic CHF Discharge Exam Constitutional: well developed, + morbidly obese and cooperative; not ill appearing and not in distress Eyes: conjunctivae normal, anicteric sclerae ENMT: external ear and nose normal, oropharynx normal Neck: supple, negative LAD Respiratory: normal respiratory effort; no respiratory distress Auscultation: + diminished lung sounds (bilateral lower lung ponce); no crackles, no rales, no wheezes Cardiovascular: RRR, normal S1 and normal S2; Extremities: + edema (bilateral non-pitting edema) Gastrointestinal (Abdomen): obese, distended, nttp, bowel sounds present Skin: moderate hemosiderin changes on bilateral lower extremity anterior and dorsal surface Neurologic: no face palsy, no dysarthria, moves extremities spontaneously Psychiatric: A+Ox3, euthymic affect Eye Contact: good eye contact Lymphatic: no lymphadenopathy Discharge Data Allergies Allergy/AdvReac Type Severity Reaction Status Date / Time No Known Allergies Allergy Unknown Verified 08/28/18 17:05 Consultations 08/28/18 16:58 ED Decision to Admit Stat 08/29/18 17:27 Consult [facility] electroless plater Routine Hospital Course (1) Fluid overload: Brice Osei is a 78 y.o male with history of heart failure, COPD, CAD, HTN, HLD, TIA, admitted with acute onset sob/chest pain found to have acute heart failure exacerbation. Acute Diastolic Heart failure Exacerbation EKG findings: normal sinus rhythm with HR in 70s, repeat EKG in AM. Troponin negative x 2 (< 0.015). CXR: no effusion, low lung volume, mild cardiomegaly. ECHO with EF 55%, mild AR and , unable to visualize atria. Sx improved after lasix 80mg IV x 1 given in ED. Euvolemic at discharge, at baseline O2 needs - Continue furosemide 80mg daily. - Encourage low salt diet Chest Pain Resolved since admission. Trops negative. No sx recurrence during PT session. -Nitro per home regimen COPD No current exacerbation -Continue home regimen (duoneb QID) -Continue baseline O2 use of 2L HTN -Continue Lisinopril, metoprolol, furosemide CAD -Continue Plavix per home regimen, ASA added BPH -Continue home Terazosin MAX -Continue use of Bipap nightly GERD - Continue omeprazole DVT PPx: Heparin Code: Full Code (2) Substernal chest pain: (3) Mild congestive heart failure: (4) COPD (chronic obstructive pulmonary disease): (5) HTN (hypertension): (6) Hypercholesteremia: (7) Heart disease: (8) Chronic hypoxemic respiratory failure: (9) Sleep apnea: (10) DVT (deep venous thrombosis): Total Time Total Time Spent Total Time Spent (In Minutes): 20 Discharge Plan Discharge Items Patient Disposition: Home - Self-Care Reason For Visit: SOB,HEART FAILURE Discharge Diagnosis: acute exacerbation of diastolic CHF Condition: Fair Discharge Goals: Decrease discomfort, Improve disease control, Increase independence and Therapeutic intervention Activity: Resume your previous activity Non-emergency contact: Primary Care Provider and Machine Puller Over Call non-emergency contact if: your symptoms worsen Diet: Heart Healthy and Low Sodium (2gm) Addtl Provider Instructions: You were admitted to the hospital with shortness of breath, worse than your usual and some chest discomfort. Your symptoms improved and you were back at baseline with some IV medication that helped remove excess water from you. There was no evidence of heart damage on lab work or echo. On discharge, no change has been made to your water pill medication, you should continue to take it daily as prescribed. You should weight your self daily and if you note a 2-3lb weight loss, call your PCP or cardiology and see if they suggest a second dose on that day. We encourage you to maintain a low salt diet. 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 They may recommend other medication changes. Aspirin was added to your medication in addition to clopidogrel, but talk to your doctors about whether or not you are a good candidate to remain on it. Prescriptions: New aspirin [Ecotrin Low Strength] 81 mg Tablet,Delayed Release (Dr/Ec) 81 mg PO QAM Qty: 30 RF: 0 Continue multivitamin Tablet 1 tab PO QAM RF: 0 terazosin 5 mg capsule 5 mg PO HS RF: 0 ipratropium-albuterol 0.5 mg-3 mg(2.5 mg base)/3 mL Solution For Nebulization 3 ml INHALATION QID RF: 0 clopidogrel 75 mg tablet 75 mg PO QAM RF: 0 simvastatin 40 mg tablet 40 mg PO PM RF: 0 potassium chloride 20 mEq tablet,ER particles/crystals 20 meq PO BIDM RF: 0 nitroglycerin 0.4 mg/hr patch 24 hour 1 patch Transdermal QAM RF: 0 furosemide 80 mg tablet 80 mg PO QAM RF: 0 lisinopril 10 mg tablet 10 mg PO QAM RF: 0 metoprolol tartrate 50 mg tablet 50 mg PO BID RF: 0 nitroglycerin [Nitrostat] 0.4 mg Tablet, Sublingual 0.4 mg Sublingual UD RF: 0 docusate sodium [Colace] 100 mg Capsule 100 mg PO BIDM RF: 0 omeprazole 20 mg capsule,delayed release(DR/EC) 20 mg PO PM RF: 0 calcium carbonate-vitamin D3 [Caltrate 600 + D] 600 mg (1,500 mg)-800 unit Tablet,Chewable 1 tab PO QAM RF: 0 Visit Report Forms: My [facility] Portal Stand-Alone Forms: My [facility] Discharge Orders: Discharge Order (Routine); Ordered 08/29/18 Ordered By: Dahiana Hamm Admission Data Admit Date/Time: 08/28/18 21:24 Attending Provider: Carolyn Brock Admit Provider: Rocky Jackson Primary Care Provider: Andie Peace Other Providers: Miquel Banegas ; Patience Acuña Service: Telemetry Other Interventions: Discharge Summary Assessment (RN) Last Done: 08/29/18 18:40 DC Date/Time DO NOT enter until pt leaves facility: 08/29/18 19:03 Supervising Physician Co-Signing Physician Notes Resident Physician Supervision Note: I independently interviewed and examined the patient and verified the pérez history and physical, reviewed labs and image studies, discussed the case with the resident Dr. Hamm and agree with the findings and care plan. Time spent in discharge 35 min Resident Activity Tracking Resident Involvement: Resident Care Provided Care Provided: Adult Hospital Medicine
== END 2018-08-29 19:03 | disposition home or self-care (01) | DRG 292 ==
LOC: ED 14:33 → SUATTDRO 21:24 → 2N 21:24

== ENCOUNTER 2021-04-11 10:16 | Inpatient (IN) ==
[2021-04-11 10:54] LABS: Basophils # (auto) 0.02 K/uL (0-0.2); Basophils % (auto) 0.2 %; Eosinophils # (auto) 0.05 K/uL (0-0.5); Eosinophils % (auto) 0.6 %; Hematocrit (blood only) 35.8 % (42-52); Hemoglobin 11.3 g/dL (14.0-18.0); Immature Granulocytes # (auto) 0.03 K/uL (0.00-0.02); Immature Granulocytes % (auto) 0.4 %; Lymphocytes # (auto) 1.21 K/uL (1.2-3.4); Lymphocytes % (auto) 14.3 %; Mean Corpuscular Hemoglobin 33.3 pg (25-34); Mean Corpuscular Hgb Conc 31.6 g/dL (32-36); Mean Corpuscular Volume 105.6 fL (80-100); Mean Platelet Volume 11.2 fL (7.4-10.4); Monocytes # (auto) 0.67 K/uL (0.11-0.59); Monocytes % (auto) 7.9 %; Neutrophils # (auto) 6.47 K/uL (1.4-6.5); Neutrophils % (auto) 76.6 %; Platelet Count 229 K/uL (130-400); RDW Coefficient of Variation 14.7 % (11.5-14.5); RDW Standard Deviation 56.7 fL (36.4-46.3); Red Blood Count 3.39 M/uL (4.7-6.1); White Blood Count 8.45 K/uL (4.8-10.8)
--- NOTE | 2021-04-11 11:06 | XRay Report ---
XR chest 1V portable CLINICAL HISTORY: Chest Pain COMPARISON STUDY: August 29, 2018 FINDINGS: No pneumothorax. No pleural effusion. Redemonstration of the deformity of the right rib cage associated with pleural thickening is again se en. Small atelectasis/scarring is seen at the left lower lung. Redemonstration of the elevated left hemid iaphragm with superimposed gastric bubble. Evaluation is slightly limited due to rotation. Cardiomediastinal silhouette is within upper limits of normal. No significant pulmonary vascular congestion.. Osseous structures: Osteopenia. Degenerative changes of the spine. IMPRESSION: 1. Mild atelectasis/scarring at the left base. Stable elevation of the left hemidiaphragm. 2. The rest of findings as above. ACT 112: Negative or not required by law. The above report was generated using voice recognition software. It may contain grammatical, syntax o r spelling errors. Electronically signed by: Tami Villagran DO 04/11/2021 11:05 AM
[2021-04-11 11:12] LABS: Partial Thromboplastin Ratio 0.9; Partial Thromboplastin Time 22.7 Seconds (21.0-31.0); Prothrombin Time 9.8 Seconds (9.0-12.0)
[2021-04-11] MEDS ORDERED: STAT IV Infusion **Titration per Protocol STA ×2 (11:14→23:33)
[2021-04-11] MEDS ORDERED: dilTIAZem HCl 5 MG/ML 5 ML VIAL IV STA (11:14)
[2021-04-11 11:17] LABS: BUN Creatinine Ratio 23.8 (10-20); Bilirubin Direct 0.3 mg/dl (0-0.2); Calcium 8.8 mg/dl (8.5-10.1); Est GFR (African American) 78.8 ml/min; Magnesium 1.7 mg/dl (1.8-2.4); Potassium 4.4 mmol/L (3.5-5.1)
--- NOTE | 2021-04-11 11:20 | Emergency Department Note ---
Impression & Plan Atrial fibrillation with rapid ventricular response, Elevated troponin, Hypervolemia ED Provider Note NAME: MELANY HERZOG AGE: 80 SEX: M ARRIVES VIA: Ambulance INFORMANT: Patient, ED PROVIDER(S): Shaun Whitley MD CHIEF COMPLAINT: Chest pain, sob PLAN: Disposition: Admit MEDICAL DECISION MAKING: The patient is a pleasant 80 gentleman with a past medical history of hypertension, hyperlipidemia, MAX, COPD with chronic hypoxic respiratory failu re, CHF who presents to the emergency department with worsening chest pressure and shortness of breath over the past several days. He reports he feels that he has been retaining fluid with increased swelling in his legs. EMS was called to the home and was found to be in A. fib with RVR in the 150s. I did review the case with the EMS crew on medical command and he was given 20 mg of IV diltiazem per my direction with improvement in his rate to the 110s. Otherwise he denies fevers, chills, vomiting. He reports he has been having diarrhea for the past several weeks and he is unsure why. He denies any recent antibiotics. On arrival the patient is uncomfortable but no acute distress, afebrile with heart in the 110s and vital signs otherwise stable. He does appear hypervolemic. He has scant intermittent wheezes and is diminished at the bases. EKG with afib, nonspecific ST and TWA, without overt ST elevation. CXR negative for acute cardiopulmonary process. WBC and platelets wnl. H/H similar to prior. Chemistry without acidosis. Magnesium 1.7. LFTs with AST 59 and ALT 83 increased from 2020, nonspecific. Troponin 0.166 without prior elevation likely 2/2 RVR. BNP 97746 without prior for comparison. Lipase wnl. Covid-19 PCR. RVR did recur and so pateint was given repeat Diltiazem 20mg bolus with gtt initiated. Patient agrees with plan for admission. Case was [place]iet[place], [facility] [place], who will evaluate the patient for admission. Triage Nursing notes reviewed and agree them. Additional history obtained from EMS Prior medical records reviewed Vital Signs: reviewed and remarkable for tachycardia. Differential diagnosis: Cardiac ischemia, aortic dissection, pulmonary embolism, pneumothorax, pneumonia, pericarditis, myocarditis, esophageal rupture, GERD, cholecystitis, pancreatitis, musculoskeletal, as well as other pathologies. ER treatment provided: See below. Diagnostics interpreted by me: ECG: Atrial fibrillation, 99 bpm, PSVC, ST and TWA, no overt ST elevation. Cardiac Monitoring: An order for continuous cardiac monitoring was placed and demonstrated Atrial fibrillation, 99 bpm, PSVCs. Laboratory studies: See below Imaging studies: See below Consultation(s): Case was discussed with [place]. Nieto, [facility] [place], who will evaluate the patient for admission. HPI: The patient is a pleasant 80 gentleman with a past medical history of hypertension, hyperlipidemia, MAX, COPD with chronic hypoxic respiratory failure, CHF who presents to the emergency department with worsening chest pressure and shortness of breath over the past several days. He reports he feels that he has been retaining fluid with increased swelling in his legs. EMS was called to the home and was found to be in A. fib with RVR in the 150s. I did review the case with the EMS crew on medical command and he was given 20 mg of IV diltiazem per my direction with improvement in his rate to the 110s. Otherwise he denies fevers, chills, vomiting. He reports he has been having diarrhea for the past several weeks and he is unsure why. He denies any recent antibiotics. ROS: See above HPI for pertinent positives & negatives. A total of 10 systems reviewed and were otherwise negative. PAST MEDICAL HISTORY:See Below PAST SURGICAL HISTORY:See Below FAMILY HISTORY:See Below SOCIAL HISTORY:See Below HOME MEDICATIONS:See Below ALLERGIES:See Below VITALS:See Below PHYSICAL EXAMINATION: GENERAL: Awake, alert, acute on chronically ill-appearing, in no distress HENT: Normocephalic, atraumatic. Oropharynx unremarkable. EYES: Normal conjunctiva. Sclera non-icteric. NECK: Supple. No nuchal rigidity. FROM. No JVD. RESPIRATORY: Scant intermittent wheezes and is diminished at the bases. CARDIAC: Tachycardic rate, irregular rhythm. Extremities warm and well perfused. Pulses equal. ABDOMEN: Soft, non-distended. No tenderness to palpation. No rebound or g uarding. No masses. RECTAL: Deferred. MUSCULOSKELETAL: Chest examination reveals no tenderness. The back is symmetrical on inspection without obvious abnormality. There is no CVA tenderness to palpation. No joint edema. LOWER EXTREMITIES: Calves are equal size bilaterally and non-tender. 2+ BLE fabby a. No discoloration. NEURO: Normal sensorium. No sensory or motor deficits noted. SKIN: No rash or jaundice noted. ED COURSE: Critical Care: I have personally spent greater than 45 minutes of critical care time in the direct management of this patient. This includes bedside care, interpretation of diagnostic studies, and testing, discussion with consultants, patient, and family members, and other required patient management activities. This 45 minutes is in excess of all separately billable procedures. Shaun Whitley MD Past Med/Surg History Medical History Aortic stenosis, mild Cancer of prostate Depression DVT (deep venous thrombosis) Heart disease HTN (hypertension) Myocardial infarct TIA (transient ischemic attack) Surgical History History of appendectomy Hx of tonsillectomy Hx of vasectomy Family History Family/Other Prostate cancer Myocardial infarction Denies family history of Ovarian cancer Breast cancer Colorectal cancer Social History Smoking Status: Former smoker Tobacco Type: Cigarettes Smoking End Date: 2014; Second Hand Exposure: No; Do You Dip or Chew Tobacco: No; Tobacco Cessation Education Requested by Patient: No Hx Alcohol Use: Yes Alcohol type: beer Alcohol Intake Frequency: 2-4 x/Month Hx Substance Use: No Preferred Language: Divehi Communication Ability: Effective Crayon Sorting Machine Feeder Required: No Beliefs That Will Affect Care: None marital status: Current Living Situation: Spouse current occupational status: retired Other Information That Helps Us Care for You: No Feels Safe at Home: Yes caffeine: Yes Dental Care, Regularly: No Physical Activity Frequency: Does not Exercise Seatbelt Use: always Sunscreen Use: No Assistive Devices: Cane, Denture - Upper, Denture - Lower, Glasses, Oxygen - Continuous and Walker Allergies Allergies Allergy/AdvReac Type Severity Reaction Status Date / Time acetazolamide Allergy Intermediate swelling Verified 04/11/21 14:47 [From Diamox Sequels] Home Meds Home Medications Medication Instructions Recorded Confirmed calcium carbonate 500 mg (1,250 500 tab PO BID 04/11/21 04/11/21 mg)-vitamin D3 400 unit tablet (Calcium 500 + D) clopidogrel 75 mg tablet (Plavix) 75 mg PO QAM 04/11/21 04/11/21 furosemide 80 mg tablet (Lasix) 80 mg PO QAM 04/11/21 04/11/21 lisinopril 10 mg tablet (Zestril) 10 mg PO QAM 04/11/21 04/11/21 metoprolol tartrate 50 mg tablet 50 mg PO BID 04/11/21 04/11/21 (Lopressor) multivitamin (Daily Multi-Vitamin) 1 tab PO QAM 04/11/21 04/11/21 omeprazole 20 mg capsule,delayed 20 mg PO QAM 04/11/21 04/11/21 release potassium chloride 20 mEq 20 meq PO BID 04/11/21 04/11/21 tablet,extended release(part/cryst) (Klor-Con M) simvastatin 40 mg tablet (Zocor) 40 mg PO HS 04/11/21 04/11/21 terazosin 5 mg capsule 5 mg PO HS 04/11/21 04/11/21 Previous Rx's Medication Instructions Recorded aspirin 81 mg tablet,delayed 81 mg PO QAM #30 tab 01/12/19 release (Ecotrin Low Strength) docusate sodium 100 mg capsule 100 mg PO BIDM #30 cap 01/12/19 (Colace) ipratropium 0.5 mg-albuterol 3 mg 3 ml INHALATION .COMPLEX PRN #90 ml 09/24/19 (2.5 mg base)/3 mL nebulization soln nebulizer accessories (A.I.R.S #1 ea 09/24/19 Nebulizer Replacement) nebulizers (Aeroneb Go Nebulizer) #1 ea 09/24/19 Results & Data (ED) Vital Signs Vital Signs - 24 hr 04/11/21 10:16 04/11/21 10:26 04/11/21 10:30 Temperature 36.8 C Temperature Source Oral Pulse Rate 112 H 113 H 120 H Pulse Rate from SpO2 Sensor 86 89 Pulse Rhythm Irregular Pulse Strength Normal Respiratory Rate 24 24 25 H Respiratory Effort / Characteristics Short of Breath Blood Pressure 133/79 128/76 134/76 Blood Pressure Mean 97 93 95 Blood Pressure Position Sitting Pulse Oximetry 98 100 100 Oxygen Delivery Method Nasal Cannula Oxygen Flow Rate 2.5 Sepsis Recent Fever Within 48 Hours No Sepsis New/Unexplained Change in Mental Status N/A Sepsis Action Taken by Nursing No Action Required 04/11/21 10:38 04/11/21 11:00 04/11/21 11:30 Temperature Temperature Source Pulse Rate 112 H 133 H 95 H Pulse Rate from SpO2 Sensor 89 83 Pulse Rhythm Irregular Pulse Strength Respiratory Rate 24 24 23 Respiratory Effort / Characteristics Blood Pressure 127/89 137/62 Blood Pressure Mean 101 87 Blood Pressure Position Pulse Oximetry 98 92 96 Oxygen Delivery Method Nasal Cannula Oxygen Flow Rate 2.5 2.5 Sepsis Recent Fever Within 48 Hours Sepsis New/Unexplained Change in Mental Status Sepsis Action Taken by Nursing 04/11/21 12:00 04/11/21 12:32 04/11/21 13:01 Temperature Temperature Source Pulse Rate 115 H 128 H 144 H Pulse Rate from SpO2 Sensor 82 95 H 125 H Pulse Rhythm Pulse Strength Respiratory Rate 23 21 16 Respiratory Effort / Characteristics Blood Pressure 140/71 128/78 Blood Pressure Mean 94 94 Blood Pressure Position Pulse Oximetry 99 93 88 L Oxygen Delivery Method Oxygen Flow Rate Sepsis Recent Fever Within 48 Hours Sepsis New/Unexplained Change in Mental Status Sepsis Action Taken by Nursing Laboratory Data Attestation: I reviewed the patient's lab results. Result diagrams: 04/11/21 10:43 04/11/21 10:43 Lab Results 04/11/21 04/11/21 04/11/21 Range/Units 10:39 10:39 10:43 WBC 8.45 (4.8-10.8) K/uL RBC 3.39 L (4.7-6.1) M/uL Hgb 11.3 L (14.0-18.0) g/dL Hct 35.8 L (42-52) % MCV 105.6 H (80-100) fL MCH 33.3 (25-34) pg MCHC 31.6 L (32-36) g/dL RDW Std Deviation 56.7 H (36.4-46.3) fL RDW Coeff of Luciano 14.7 H (11.5-14.5) % Plt Count 229 (130-400) K/uL MPV 11.2 H (7.4-10.4) fL Immature Gran % (Auto) 0.4 % Neut % (Auto) 76.6 % Lymph % (Auto) 14.3 % Cannon % (Auto) 7.9 % Eos % (Auto) 0.6 % Baso % (Auto) 0.2 % Neut # (Auto) 6.47 (1.4-6.5) K/uL Lymph # (Auto) 1.21 (1.2-3.4) K/uL Cannon # (Auto) 0.67 H (0.11-0.59) K/uL Eos # (Auto) 0.05 (0-0.5) K/uL Baso # (Auto) 0.02 (0-0.2) K/uL Immature Gran # (Auto) 0.03 H (0.00-0.02) K/uL PT (9.0-12.0) Seconds INR (0.9-1.1) APTT (21.0-31.0) Seconds PTT Ratio Sodium (136-145) mmol/L Potassium (3.5-5.1) mmol/L Chloride (98-107) mmol/L Carbon Dioxide (21-32) mmol/L Anion Gap (3-11) BUN (7-18) mg/dl Creatinine (0.6-1.4) mg/dl Est Cr Clr Drug Dosing ml/min Est GFR ( Amer) ml/min Est GFR (Non-Af Amer) ml/min BUN/Creatinine Ratio (10-20) Glucose (70-99) mg/dl Calcium (8.5-10.1) mg/dl Phosphorus (2.5-4.9) mg/dl Magnesium (1.8-2.4) mg/dl Total Bilirubin (0.2-1) mg/dl Direct Bilirubin (0-0.2) mg/dl AST (15-37) U/L ALT (12-78) U/L Alkaline Phosphatase (45-117) U/L Troponin I (0-0.045) ng/ml NT-Pro-B Natriuret Pep (0-1800) pg/ml Total Protein (6.4-8.2) gm/dl Albumin (3.4-5.0) gm/dl Globulin (2.5-4.0) gm/dl Albumin/Globulin Ratio (0.9-2) Lipase (73-393) U/L TSH (0.300-4.500) uIu/ml COVID-19 Eval Order Covid19 at [facility] SARS-CoV-2 (PCR) NEGATIVE (Negative) 04/11/21 04/11/21 Range/Units 10:43 10:43 WBC (4.8-10.8) K/uL RBC (4.7-6.1) M/uL Hgb (14.0-18.0) g/dL Hct (42-52) % MCV (80-100) fL MCH (25-34) pg MCHC (32-36) g/dL RDW Std Deviation (36.4-46.3) fL RDW Coeff of Luciano (11.5-14.5) % Plt Count (130-400) K/uL MPV (7.4-10.4) fL Immature Gran % (Auto) % Neut % (Auto) % Lymph % (Auto) % Cannon % (Auto) % Eos % (Auto) % Baso % (Auto) % Neut # (Auto) (1.4-6.5) K/uL Lymph # (Auto) (1.2-3.4) K/uL Cannon # (Auto) (0.11-0.59) K/uL Eos # (Auto) (0-0.5) K/uL Baso # (Auto) (0-0.2) K/uL Immature Gran # (Auto) (0.00-0.02) K/uL PT 9.8 (9.0-12.0) Seconds INR 1.0 (0.9-1.1) APTT 22.7 (21.0-31.0) Seconds PTT Ratio 0.9 Sodium 142 (136-145) mmol/L Potassium 4.4 (3.5-5.1) mmol/L Chloride 101 (98-107) mmol/L Carbon Dioxide 33 H (21-32) mmol/L Anion Gap 8.0 (3-11) BUN 25 H (7-18) mg/dl Creatinine 1.04 (0.6-1.4) mg/dl Est Cr Clr Drug Dosing 71.0 ml/min Est GFR ( Amer) 78.8 ml/min Est GFR (Non-Af Amer) 68.0 ml/min BUN/Creatinine Ratio 23.8 H (10-20) Glucose 103 H (70-99) mg/dl Calcium 8.8 (8.5-10.1) mg/dl Phosphorus 3.1 (2.5-4.9) mg/dl Magnesium 1.7 L (1.8-2.4) mg/dl Total Bilirubin 0.7 (0.2-1) mg/dl Direct Bilirubin 0.3 H (0-0.2) mg/dl AST 59 H (15-37) U/L ALT 83 H (12-78) U/L Alkaline Phosphatase 68 (45-117) U/L Troponin I 0.166 H* (0-0.045) ng/ml NT-Pro-B Natriuret Pep 79892 H (0-1800) pg/ml Total Protein 6.4 (6.4-8.2) gm/dl Albumin 3.0 L (3.4-5.0) gm/dl Globulin 3.4 (2.5-4.0) gm/dl Albumin/Globulin Ratio 0.9 (0.9-2) Lipase 157 (73-393) U/L TSH 1.310 (0.300-4.500) uIu/ml COVID-19 Eval Order SARS-CoV-2 (PCR) (Negative) Administered Medications Calcium Carbonate (Calcium Carbonate 1250mg Tab) 1,250 mg PO BID [facility] Stop: 05/11/21 20:59 Last Admin: 04/11/21 20:30 Dose: 1,250 mg Documented by: [id number] Docusate Sodium (Docusate Sodium 100 Mg Cap) 100 mg PO BIDM [facility] Stop: 05/11/21 16:59 Last Admin: 04/11/21 15:50 Dose: 100 mg Documented by: [id number] Enoxaparin Sodium (Enoxaparin 100 Mg/1ml Syr) 110 mg SQ Q12H [facility] Stop: 05/11/21 13:14 Last Admin: 04/11/21 13:35 Dose: 110 mg Documented by: [id number] Diltiazem HCl 125 mg/ Dextrose 125 mls @ 15 mls/hr IV .Q8H20M [facility]; Protocol Stop: 05/11/21 11:14 Last Admin: 04/11/21 19:54 Dose: 15 mg/hr, 15 mls/hr Documented by: [id number] Cosigned by: [id number] Titration: 04/11/21 19:54 Dose: 15 mg/hr, 15 mls/hr Documented by: [id number] Cosigned by: [id number] Titration: 04/11/21 18:48 Dose: 15 mg/hr, 15 mls/hr Documented by: [id number] Cosigned by: [id number] Titration: 04/11/21 14:32 Dose: 15 mg/hr, 15 mls/hr Documented by: [id number] Cosigned by: [id number] Titration: 04/11/21 13:14 Dose: 15 mg/hr, 15 mls/hr Documented by: [id number] Cosigned by: [id number] Titration: 04/11/21 12:13 Dose: 10 mg/hr, 10 mls/hr Documented by: [id number] Cosigned by: [id number] Admin: 04/11/21 11:25 Dose: 5 mg/hr, 5 mls/hr Documented by: [id number] Cosigned by: [id number] Metoprolol Tartrate (Metoprolol Tartrate 50 Mg Tab) 50 mg PO BID JOSE ALBERTO Stop: 05/11/21 20:59 Last Admin: 04/11/21 19:43 Dose: 50 mg Documented by: [id number] Potassium Chloride (Potassium Chloride Crtab 20 Meq Tabcr) 20 meq PO BID JOSE ALBERTO Stop: 05/11/21 20:59 Last Admin: 04/11/21 20:30 Dose: 20 meq Documented by: [id number] Simvastatin (Simvastatin 40 Mg Tab) 40 mg PO HS JOSE ALBERTO Stop: 05/11/21 20:59 Last Admin: 04/11/21 20:30 Dose: 40 mg Documented by: [id number] Terazosin HCl (Terazosin Hcl 5 Mg Cap) 5 mg PO HS JOSE ALBERTO Stop: 05/11/21 20:59 Last Admin: 04/11/21 20:30 Dose: 5 mg Documented by: [id number] Discontinued Medications Diltiazem HCl (Diltiazem Hcl 5 Mg/Ml 5 Ml Vial) 20 mg IV NOW STA Stop: 04/11/21 11:15 Last Admin: 04/11/21 11:24 Dose: 20 mg Documented by: [id number] Cosigned by: [id number] Furosemide (Furosemide 40 Mg/4 Ml Vial) 60 mg IV NOW STA Stop: 04/11/21 12:10 Last Admin: 04/11/21 12:18 Dose: 60 mg Documented by: [id number] Digoxin 500 mcg/ Syringe 10 mls @ 2 mls/min IV ONCE ONE Stop: 04/11/21 18:34 Last Admin: 04/11/21 18:39 Dose: 2 mls/min Documented by: [id number] Metoprolol Tartrate (Metoprolol Tartrate 1 Mg/Ml Vial) 5 mg IV NOW STA Stop: 04/11/21 13:14 Last Admin: 04/11/21 13:27 Dose: 5 mg Documented by: [id number] Metoprolol Tartrate (Metoprolol Tartrate 1 Mg/Ml Vial) 5 mg IV NOW STA Stop: 04/11/21 15:29 Last Admin: 04/11/21 15:46 Dose: Not Given Documented by: [id number] Metoprolol Tartrate (Metoprolol Tartrate 1 Mg/Ml Vial) Confirm Administered Dose 5 mg IV .STK-MED ONE Stop: 04/11/21 15:31 Last Admin: 04/11/21 15:34 Dose: 5 mg Documented by: [id number] Miscellaneous (Stat Iv Infusion Titration Per Protocol) 1 ea N/A NOW STA; Protocol Stop: 04/11/21 11:15 Last Admin: 04/11/21 12:14 Dose: Not Given Documented by: [id number] Imaging Data Radiologist's Impression: Chest X-Ray 04/11/21 10:23 XR chest 1V portable CLINICAL HISTORY: Chest Pain COMPARISON STUDY: August 29, 2018 FINDINGS: No pneumothorax. No pleural effusion. Redemonstration of the deformity of the right rib cage associated with pleural thickening is again seen. Small atelectasis/scarring is seen at the left lower lung. Redemonstration of the elevated left hemidiaphragm with superimposed gastric bubble. Evaluation is slightly limited due to rotation. Cardiomediastinal silhouette is within upper limits of normal. No significant pulmonary vascular congestion.. Osseous structures: Osteopenia. Degenerative changes of the spine. IMPRESSION: 1. Mild atelectasis/scarring at the left base. Stable elevation of the left hemidiaphragm. 2. The rest of findings as above. ACT 112: Negative or not required by law. The above report was generated using voice recognition software. It may contain grammatical, syntax or spelling errors. Electronically signed by: Tami Villagran DO 04/11/2021 11:05 AM Discharge Plan Visit Data Chief Complaint: Cardiac Assessment Stated Complaint: CHEST PAIN ED Provider: Shaun Whitley Discharge Problem: Atrial fibrillation with rapid ventricular response, Elevated troponin, Hypervolemia Patient Disposition: Admitted As Inpatient Discharge Instructions Interventions: ED Discharge Assessment Last Done: 04/11/21 13:53
[2021-04-11] MEDS: dilTIAZem HCL 125 MG in DEXTROSE 5% 100 ML IV SCH ×2 (11:25→19:54)
[2021-04-11 11:38] LABS: Albumin Globulin Ratio 0.9 (0.9-2); Bilirubin,Total 0.7 mg/dl (0.2-1); Globulin 3.4 gm/dl (2.5-4.0); Phosphorus 3.1 mg/dl (2.5-4.9); Thyroid Stimulating Hormone 1.31 uIu/ml (0.300-4.500); Total Protein 6.4 gm/dl (6.4-8.2); Troponin I 0.166 ng/ml (0-0.045)
[2021-04-11] MEDS ORDERED: FUROSEMIDE 40 MG/4 ML VIAL IV STA (12:09)
--- NOTE | 2021-04-11 13:03 | History & Physical Report ---
Date of Service April 11, 2021 Assessment & Plan (1) Rapid atrial fibrillation: Plan: Symptomatology likely secondary to new onset rapid atrial fibrillation Will admit to a PCU bed Patient is currently on a Cardizem drip at 10 mg an hour, can titrate to rate control as able Will order metoprolol 5 mg IV x1 now Check 2D echo Trend cardiac enzymes Start treatment dose Lovenox, patient has [id number] score of 5 from available information, will likely need long-term anticoagulation I will ask cardiology to evaluate for further recommendations (2) HTN (hypertension): Plan: Cardizem and metoprolol as noted above Patient typically takes lisinopril 10 daily, metoprolol tartrate 50 mg twice daily, will continue (3) Dyslipidemia: Plan: Patient is on Zocor 40 mg nightly per records, check fasting lipids and consider regional climate change analyst to Lipitor equivalent (4) Chronic hypoxemic respiratory failure: Plan: Patient is on 2.5 L nasal cannula at home He also tells me he has sleep apnea, will order CPAP (5) Mild congestive heart failure: Plan: 2D echo as noted above Typically on Lasix 80 mg p.o. daily, will regional climate change analyst to IV for now Follow daily weights and I's and O's Suspect much of his acute CHF is rate dependent History of Present Illness Chief Complaint: Shortness of breath Primary Care Provider: JONATHAN Russo This is a 80-year-old male with past my history of hypertension, hyperlipidemia, MAX, chronic hypoxic respiratory failure on 2.5 L nasal cannula chronically that presents today complaining worsening shortness of breath. Patient is a decent historian. Patient tells me he started to have symptoms on Saturday morning, 04/08. Patient woke up and was feeling worsening shortness of breath along with palpitations. He was extremely weak at that time. Unfortunately, patient did not seek medical attention at that time as he is caring for his sick which is recently came out of the hospital herself. He tells me that the feeling was persistent after Saturday and Saturday but earlier this morning he was unable to tolerate any longer. At that point, he presented to the emergency room for further evaluation. In the emergency room, patient was found to be in rapid atrial fibrillation with a rate around 150. He was given bolus Cardizem dosing that started on a drip. At the time my evaluation, he remained in atrial fibrillation with a rate around 120. Patient tells me he has no previous history of this. He does appear to be mildly uncomfortable but does tell me he feels improved from his presentation. On further questioning. He does note that he has been having some worsening lower extremity edema although he tends to always be swollen. Allergies Allergy/AdvReac Type Severity Reaction Status Date / Time acetazolamide Allergy Unknown swelling Verified 04/11/21 12:59 [From [employer]] Home Medications Medication Instructions Recorded Confirmed Type aspirin 81 mg tablet,delayed 81 mg PO QAM #30 tab 01/12/19 12/08/20 Rx release (Ecotrin Low Strength) docusate sodium 100 mg capsule 100 mg PO BIDM #30 cap 01/12/19 12/08/20 Rx (Colace) ipratropium 0.5 mg-albuterol 3 mg 3 ml INHALATION .COMPLEX PRN #90 ml 09/24/19 12/08/20 Rx (2.5 mg base)/3 mL nebulization soln nebulizer accessories (A.I.R.S #1 ea 09/24/19 12/08/20 Rx Nebulizer Replacement) nebulizers (Aeroneb Go Nebulizer) #1 ea 09/24/19 12/08/20 Rx calcium carbonate 500 mg (1,250 500 tab PO BID 04/11/21 04/11/21 History mg)-vitamin D3 400 unit tablet (Calcium 500 + D) clopidogrel 75 mg tablet (Plavix) 75 mg PO QAM 04/11/21 04/11/21 History furosemide 80 mg tablet (Lasix) 80 mg PO QAM 04/11/21 04/11/21 History lisinopril 10 mg tablet (Zestril) 10 mg PO QAM 04/11/21 04/11/21 History metoprolol tartrate 50 mg tablet 50 mg PO BID 04/11/21 04/11/21 History (Lopressor) multivitamin (Daily Multi-Vitamin) 1 tab PO QAM 04/11/21 04/11/21 History omeprazole 20 mg capsule,delayed 20 mg PO QAM 04/11/21 04/11/21 History release potassium chloride 20 mEq 20 meq PO BID 04/11/21 04/11/21 History tablet,extended release(part/cryst) (Klor-Con M) simvastatin 40 mg tablet (Zocor) 40 mg PO HS 04/11/21 04/11/21 History terazosin 5 mg capsule 5 mg PO HS 04/11/21 04/11/21 History Past Med/Surg History Medical History Aortic stenosis, mild Cancer of prostate Depression DVT (deep venous thrombosis) Heart disease HTN (hypertension) Myocardial infarct TIA (transient ischemic attack) Surgical History History of appendectomy Hx of tonsillectomy Hx of vasectomy Family History Family/Other Prostate cancer Myocardial infarction Denies family history of Ovarian cancer Breast cancer Colorectal cancer Social History Smoking Status: Former smoker Tobacco Type: Cigarettes Hx Alcohol Use: Yes Alcohol type: beer Alcohol Intake Frequency: 2-4 x/Month Hx Substance Use: No Preferred Language: Yakut Communication Ability: Effective 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 Beliefs That Will Affect Care: None marital status: Current Living Situation: Spouse current occupational status: retired Feels Safe at Home: Yes caffeine: Yes Dental Care, Regularly: No Physical Activity Frequency: Does not Exercise Seatbelt Use: always Sunscreen Use: No Assistive Devices: BiPap, Cane, Denture - Upper, Denture - Lower, Glasses and Oxygen - Continuous Review of Systems Constitutional: + weakness and + weight gain; no fever, no chills and no weight loss Eyes: as per Subjective / HPI Respiratory: + dyspnea and + dyspnea on exertion; no cough, no chest congestion and no sputum production Cardiovascular: + chest pain and + dyspnea on exertion; no radiating jaw, neck or arm pain, no orthopnea, no palpitations, no lightheadedness and no edema Gastrointestinal: no abdominal pain, no nausea, no vomiting, no constipation and no diarrhea/loose stools Musculoskeletal: no back pain, no neck pain, no joint pain, no stiffness and no myalgia Positive for edema Integumentary: no rash Neurologic: no gait abnormality, no unsteadiness, no falls and no generalized weakness Physical Exam Constitutional: cooperative; no acute distress Neck: trachea midline, no thyromegaly Respiratory: normal respiratory effort Auscultation: lungs clear to auscultation bilaterally; no crackles, no rales, no rhonchi and no wheezes Cardiovascular: Rate/Rhythm: + tachycardic and + irregularly irregular Extremities: + pedal edema Gastrointestinal (Abdomen): Inspection/Auscultation: abdomen normal to inspection Percussion/Palpation: abdomen soft; abdomen nontender, no guarding, abdomen not rigid and no hepatosplenomegaly Skin: no rashes, warm and dry Results & Data Results & Data ([facility]) Vital Signs (Past 12 Hours) Vital Signs Temp Pulse Resp BP Pulse Ox 04/11/21 12:32 128 H 21 93 04/11/21 12:00 115 H 23 140/71 99 04/11/21 11:30 95 H 23 137/62 96 04/11/21 11:00 133 H 24 127/89 92 04/11/21 10:38 112 H 24 98 04/11/21 10:30 120 H 25 H 134/76 100 04/11/21 10:26 113 H 24 128/76 100 04/11/21 10:16 36.8 C 112 H 24 133/79 98 Laboratory Results Laboratory Results WBC 8.45 K/uL (4.8-10.8) 04/11/21 10:43 RBC 3.39 M/uL (4.7-6.1) L 04/11/21 10:43 Hgb 11.3 g/dL (14.0-18.0) L 04/11/21 10:43 Hct 35.8 % (42-52) L 04/11/21 10:43 MCV 105.6 fL (80-100) H 04/11/21 10:43 MCH 33.3 pg (25-34) 04/11/21 10:43 MCHC 31.6 g/dL (32-36) L 04/11/21 10:43 RDW Std Deviation 56.7 fL (36.4-46.3) H 04/11/21 10:43 RDW Coeff of Luciano 14.7 % (11.5-14.5) H 04/11/21 10:43 Plt Count 229 K/uL (130-400) 04/11/21 10:43 MPV 11.2 fL (7.4-10.4) H 04/11/21 10:43 Immature Gran % (Auto) 0.4 % 04/11/21 10:43 Neut % (Auto) 76.6 % 04/11/21 10:43 Lymph % (Auto) 14.3 % 04/11/21 10:43 [place] % (Auto) 7.9 % 04/11/21 10:43 Eos % (Auto) 0.6 % 04/11/21 10:43 Baso % (Auto) 0.2 % 04/11/21 10:43 Neut # (Auto) 6.47 K/uL (1.4-6.5) 04/11/21 10:43 Lymph # (Auto) 1.21 K/uL (1.2-3.4) 04/11/21 10:43 [place] # (Auto) 0.67 K/uL (0.11-0.59) H 04/11/21 10:43 Eos # (Auto) 0.05 K/uL (0-0.5) 04/11/21 10:43 Baso # (Auto) 0.02 K/uL (0-0.2) 04/11/21 10:43 Immature Gran # (Auto) 0.03 K/uL (0.00-0.02) H 04/11/21 10:43 PT 9.8 Seconds (9.0-12.0) 04/11/21 10:43 INR 1.0 (0.9-1.1) 04/11/21 10:43 APTT 22.7 Seconds (21.0-31.0) 04/11/21 10:43 PTT Ratio 0.9 04/11/21 10:43 Sodium 142 mmol/L (136-145) 04/11/21 10:43 Potassium 4.4 mmol/L (3.5-5.1) 04/11/21 10:43 Chloride 101 mmol/L (98-107) 04/11/21 10:43 Carbon Dioxide 33 mmol/L (21-32) H 04/11/21 10:43 Anion Gap 8.0 (3-11) 04/11/21 10:43 BUN 25 mg/dl (7-18) H 04/11/21 10:43 Creatinine 1.04 mg/dl (0.6-1.4) 04/11/21 10:43 Est Cr Clr Drug Dosing 71.0 ml/min 04/11/21 10:43 Est GFR ( Amer) 78.8 ml/min 04/11/21 10:43 Est GFR (Non-Af Amer) 68.0 ml/min 04/11/21 10:43 BUN/Creatinine Ratio 23.8 (10-20) H 04/11/21 10:43 Glucose 103 mg/dl (70-99) H 04/11/21 10:43 Calcium 8.8 mg/dl (8.5-10.1) 04/11/21 10:43 Phosphorus 3.1 mg/dl (2.5-4.9) 04/11/21 10:43 Magnesium 1.7 mg/dl (1.8-2.4) L 04/11/21 10:43 Total Bilirubin 0.7 mg/dl (0.2-1) 04/11/21 10:43 Direct Bilirubin 0.3 mg/dl (0-0.2) H 04/11/21 10:43 AST 59 U/L (15-37) H 04/11/21 10:43 ALT 83 U/L (12-78) H 04/11/21 10:43 Alkaline Phosphatase 68 U/L (45-117) 04/11/21 10:43 Troponin I 0.166 ng/ml (0-0.045) H* 04/11/21 10:43 NT-Pro-B Natriuret Pep 86203 pg/ml (0-1800) H 04/11/21 10:43 Total Protein 6.4 gm/dl (6.4-8.2) 04/11/21 10:43 Albumin 3.0 gm/dl (3.4-5.0) L 04/11/21 10:43 Globulin 3.4 gm/dl (2.5-4.0) 04/11/21 10:43 Albumin/Globulin Ratio 0.9 (0.9-2) 04/11/21 10:43 Lipase 157 U/L (73-393) 04/11/21 10:43 TSH 1.310 uIu/ml (0.300-4.500) 04/11/21 10:43 COVID-19 Eval Order Covid19 at [facility] 04/11/21 10:39 SARS-CoV-2 (PCR) NEGATIVE (Negative) 04/11/21 10:39 Impressions Chest X-Ray 04/11/21 10:23 XR chest 1V portable CLINICAL HISTORY: Chest Pain COMPARISON STUDY: August 29, 2018 FINDINGS: No pneumothorax. No pleural effusion. Redemonstration of the deformity of the right rib cage associated with pleural thickening is again seen. Small atelectasis/scarring is seen at the left lower lung. Redemonstration of the elevated left hemidiaphragm with superimposed gastric bubble. Evaluation is slightly limited due to rotation. Cardiomediastinal silhouette is within upper limits of normal. No significant pulmonary vascular congestion.. Osseous structures: Osteopenia. Degenerative changes of the spine. IMPRESSION: 1. Mild atelectasis/scarring at the left base. Stable elevation of the left hemidiaphragm. 2. The rest of findings as above. ACT 112: Negative or not required by law. The above report was generated using voice recognition software. It may contain grammatical, syntax or spelling errors. Electronically signed by: Tami Villagran DO 04/11/2021 11:05 AM PG Care Time/CCT Total # of Minutes Spent Total Time Spent with Patient: Total time spent is greater than 50% in coordination of care (as documented) at patient's floor/unit and/or counseling patient: Coding Level of Care Code 16344 Initial Inpt Care Lvl 3 Diagnoses HTN (hypertension) I10 Dyslipidemia E78.5 Chronic hypoxemic respiratory failure J96.11 Mild congestive heart failure I50.9 Rapid atrial fibrillation I48.91
[2021-04-11] MEDS ORDERED: METOPROLOL TARTRATE 1 MG/ML VIAL IV STA ×4 (13:13→23:00)
[2021-04-11] MEDS: ENOXAPARIN 100 MG/1ML SYR SQ SCH (13:35)
[2021-04-11] MEDS ORDERED: ALBUT/IPRATROP 3MG/0.5MG NEB 3 ML VIAL INH PRN (14:30)
[2021-04-11] MEDS ORDERED: METOPROLOL TARTRATE 1 MG/ML VIAL IV ONE (15:30)
[2021-04-11] MEDS: DOCUSATE SODIUM 100 MG CAP PO SCH (15:50)
[2021-04-11] MEDS ORDERED: DIGOXIN 500 MCG/2 ML AMP IV ONE (18:15)
[2021-04-11] MEDS ORDERED: DIGOXIN 500 MCG in SYRINGE 8 ML IV ONE (18:30)
[2021-04-11] MEDS: METOPROLOL TARTRATE 50 MG TAB PO SCH (19:43)
[2021-04-11] MEDS: POTASSIUM CHLORIDE CRTAB 20 MEQ TABCR PO SCH (20:30)
[2021-04-11] MEDS: CALCIUM CARBONATE 1250MG TAB PO SCH (20:30)
[2021-04-11] MEDS: TERAZOSIN HCL 5 MG CAP PO SCH (20:30)
[2021-04-11] MEDS ORDERED: SIMVASTATIN 40 MG TAB PO SCH (21:00)
--- NOTE | 2021-04-11 21:53 | XCELERA ---
[id number]
[2021-04-11] MEDS ORDERED: AMIODARONE IV BOLUS & DRIP IV STA (23:33)
[2021-04-11] MEDS ORDERED: AMIODARONE / D5W 150 MG/100 ML BAG IV STA (23:38)
[2021-04-11] MEDS ORDERED: 0.2 MICRON FILTER SET 1 EA IV ONE (23:45)
[2021-04-11] MEDS ORDERED: AMIODARONE / D5W 360 MG/200 ML BAG IV ONE (23:50)
[2021-04-12] MEDS: ENOXAPARIN 100 MG/1ML SYR SQ SCH (02:00)
[2021-04-12] MEDS: dilTIAZem HCL 125 MG in DEXTROSE 5% 100 ML IV SCH ×3 (05:49→16:56)
--- NOTE | 2021-04-12 05:49 | Electrocardiogram Report ---
Test Reason : Blood Pressure : / mmHG Vent. Rate : 099 BPM Atrial Rate : 088 BPM P-R Int : 000 ms QRS Dur : 098 ms QT Int : 338 ms P-R-T Axes : 000 -10 -35 degrees QTc Int : 433 ms Atrial fibrillation Minimal voltage criteria for LVH, may be normal variant Abnormal ECG When compared with ECG of 29-AUG-2018 07:32, Atrial fibrillation has replaced Sinus rhythm T wave inversion now evident in Lateral leads Confirmed by Lionel De La Cruz ([id number]) on 04/12/2021 5:49:06 AM Referred By: REFERRED SELF Confirmed By:Lionel De La Cruz
[2021-04-12] MEDS ORDERED: AMIODARONE / D5W 360 MG/200 ML BAG IV SCH (05:50)
[2021-04-12 07:06] LABS: Basophils # (auto) 0.02 K/uL (0-0.2); Basophils % (auto) 0.3 %; Eosinophils # (auto) 0.16 K/uL (0-0.5); Eosinophils % (auto) 2.1 %; Immature Granulocytes # (auto) 0.02 K/uL (0.00-0.02); Immature Granulocytes % (auto) 0.3 %; Lymphocytes # (auto) 1.71 K/uL (1.2-3.4); Lymphocytes % (auto) 22.6 %; Mean Corpuscular Hgb Conc 31.4 g/dL (32-36); Mean Corpuscular Volume 105.1 fL (80-100); Mean Platelet Volume 11.3 fL (7.4-10.4); Monocytes # (auto) 0.64 K/uL (0.11-0.59); Monocytes % (auto) 8.5 %; Neutrophils # (auto) 5.01 K/uL (1.4-6.5); Neutrophils % (auto) 66.2 %; Platelet Count 215 K/uL (130-400); RDW Coefficient of Variation 14.6 % (11.5-14.5); RDW Standard Deviation 55.9 fL (36.4-46.3); Red Blood Count 3.33 M/uL (4.7-6.1); White Blood Count 7.56 K/uL (4.8-10.8)
[2021-04-12 07:43] LABS: Estimated Average Glucose 100 mg/dl; Hemoglobin A1C 5.1 % (4.5-5.6)
[2021-04-12 07:46] LABS: Calcium 8.8 mg/dl (8.5-10.1); Creatinine Clr Calc Pharmacy 73.9 ml/min; Est GFR (African American) 83.6 ml/min; Est GFR (Non-African American) 72.1 ml/min; Potassium 3.8 mmol/L (3.5-5.1)
[2021-04-12] MEDS: CALCIUM CARBONATE 1250MG TAB PO SCH ×2 (07:46→19:36)
[2021-04-12] MEDS: MULTIVITAMIN TAB PO SCH (07:47)
[2021-04-12] MEDS: PANTOprazole 40 MG TAB PO SCH (07:47)
[2021-04-12] MEDS: ASPIRIN 81 MG ECTAB PO SCH (07:47)
[2021-04-12] MEDS: lisinopril 10 MG TAB PO SCH (07:47)
[2021-04-12] MEDS: DOCUSATE SODIUM 100 MG CAP PO SCH ×2 (07:48→16:57)
[2021-04-12] MEDS: POTASSIUM CHLORIDE CRTAB 20 MEQ TABCR PO SCH ×2 (07:48→19:36)
[2021-04-12] MEDS: METOPROLOL TARTRATE 50 MG TAB PO SCH ×2 (07:48→19:36)
[2021-04-12] MEDS ORDERED: FUROSEMIDE 40 MG/4 ML VIAL IV SCH (09:00)
[2021-04-12] MEDS ORDERED: CLOPIDOGREL BISULFATE 75 MG TAB PO SCH (09:00)
[2021-04-12] MEDS ORDERED: FUROSEMIDE 80 MG in SYRINGE 0 ML IV SCH (09:30)
--- NOTE | 2021-04-12 14:00 | Hospitalist Progress Note ---
Date of Service April 12, 2021 Assessment & Plan (1) Rapid atrial fibrillation: Plan: Rate controlled on Cardizem plus amiodarone; likely will need switch to p.o. amiodaronecardiology input Switch to Eliquis (2) HTN (hypertension): Plan: Change (3) Dyslipidemia: Plan: LDL 40; home dose acceptable (4) Chronic hypoxemic respiratory failure: Plan: Patient is on 2.5 L nasal cannula at home He also tells me he has sleep apnea, will order CPAP (5) Acute diastolic HF (heart failure): Plan: decomp likely by A fib - ct current (6) Elevated troponin: Plan: likely type II, demandhowever, may need ischemic work-up at some point; as noted, cardiology input sought Admission and Anticipated Discharge Date Admission Date: April 11, 2021 Subjective Follow-up of presentation with shortness of breath, chest painstates short of breath Physical Exam Physical Exam: Constitutional and general: No acute distress, looks biologic age Head and face: No puffiness, atraumatic Eyes: No scleral icterus, extraocular movements normal Neck: Supple, JVD Musculoskeletal: No acute joint swelling, no bony abnormalities Skin/dermatologic/integument: No rash, no purpura Hematologic and lymphatic: pallor +, no petechia Gastrointestinal/abdomen: Nondistended, soft, nonacute Neurologic: Cranial nerves intact, nonfocal Psychiatry: Awake, alert, pleasant, communicative Cardiovascular: Heart rhythm irregular, no rub, ESM 2 x 6, no gallop Respiratory: Chest movements equal, no use of accessory muscles, no adventitious sounds Decreased breath sounds Extremities: edema +(+), no cyanosis Results & Data Results & Data ([facility]) Vital Signs (Past 12 Hours) Vital Signs Temp Pulse Resp BP BP Pulse Ox 04/12/21 10:56 36.4 C L 72 20 128/57 L 92 04/12/21 07:33 36.4 C L 94 H 18 144/55 H 97 04/12/21 04:41 125 H 135/66 04/12/21 03:40 36.3 C L 90 16 112/53 L 98 PG Care Time/CCT Total # of Minutes Spent Total Time Spent with Patient: Total time spent is greater than 50% in coordination of care (as documented) at patient's floor/unit and/or counseling patient: Coding Level of Care Code 29368 Subseq Hosp Care Lvl 3 Diagnoses Rapid atrial fibrillation I48.91 HTN (hypertension) I10 Dyslipidemia E78.5 Chronic hypoxemic respiratory failure J96.11 Acute diastolic HF (heart failure) I50.31 Elevated troponin R77.8
[2021-04-12] MEDS: ENOXAPARIN INJ 120 MG/0.8 ML SYR SQ SCH (14:17)
[2021-04-12] MEDS: dilTIAZem HCl 60 MG TAB PO SCH ×2 (16:57→22:12)
[2021-04-12] MEDS ORDERED: bisacodyL 10 MG SUPP PR PRN (18:07)
[2021-04-12] MEDS: POLYETHYLENE (MIRALAX) 17 GM PACK PO PRN (18:19)
--- NOTE | 2021-04-12 18:58 | Cardiology Consultation ---
Date of Consultation April 12, 2021 Assessment & Plan (1) Atrial fibrillation with rapid ventricular response: (2) Chronic heart failure with preserved ejection fraction: (3) Elevated troponin: (4) HTN (hypertension): (5) CAD (coronary artery disease): (6) Dyslipidemia: (7) Atypical chest pain: ASSESSMENT/PLAN: 1. Atrial fibrillation with rapid ventricular response: New diagnosis for him. Onset likely days prior to presentation. Diagnosis discussed with him in detail. Treatment strategies discussed as well. Given severe left atrial dilation, and the fact that he would require transesophageal echo prior to cardioversion currently, will attempt a rate control strategy. He would like to avoid transesophageal echo if possible. Amiodarone was discontinued at the time of today's visit to avoid conversion given elevated stroke risk. Discussed with nursing staff to increase diltiazem drip as necessary but in the meantime start diltiazem 60 mg p.o. q.6 hours and wean diltiazem drip as able. Continue beta- lalito at current dose but could increase if necessary. Could also re-dose with digoxin as he did not receive a full digoxin load. Continue anticoagulation therapy for stroke risk reduction given elevated chads Vasc score. Would recommend novel agent. Please check with care coordination to determine affordable options. 2. Elevated troponin: Likely due to rapid heart rate in the setting of atrial fibrillation. His chest pain is atypical and reproducible on exam. Ischemic evaluation not necessary at this time. 3. Atypical chest pain: Reproducible on exam. Likely musculoskeletal component but also may have had chest discomfort from rapid heart rate. Symptoms have resolved with rate control. 4. Chronic heart failure with preserved EF: Difficult to know his volume status based on exam. He reports stable lower extremity swelling. Chest x-ray not highly suggestive of CHF. His dyspnea with exertion was likely related to his AFib. Would try to maintain net negative fluid balance. Takes Lasix 80 mg p.o. daily at home, currently on 80 mg IV here. Monitor electrolytes and renal function closely. Low-sodium diet. Strict I&Os. Daily weights. 5. CAD: Described as mild nonobstructive CAD in the past. No definite angina. On anticoagulation therapy. While fully anticoagulated, would not continue dual anti-platelet therapy. Presumably, he is on dual anti-platelet therapy given prior TIA. Would at least discontinue Plavix. Continue beta-lalito. Continue statin therapy. 6. Hypertension: Blood pressure has been normotensive to mildly hypertensive. Adjusting rate-controlling medications as above. 7. Dyslipidemia: Can continue statin therapy. LDL is well controlled. 8. Disposition: Cardiology will continue to follow. Patient care communicated with primary hospitalist. Thank you for allowing me to participate in the care of your patient. Please call for any other questions or concerns. Sincerely, Simeon De La Cruz M.D. History of Present Illness Reason for Consultation: Atrial fibrillation with rapid ventricular response Requesting Physician: Vimal Nieto Attending Physician: Rickey Sanches MD History of Present Illness Mr. Osei is a pleasant 80-year-old gentleman with a history significant for nonobstructive CAD, COPD on supplemental oxygen (2.5 L via nasal cannula at home) chronic hypoxemic respiratory failure, diastolic CHF, history of cor pulmonale, sleep apnea, dyslipidemia, hypertension, bilateral lower extremity DVT, and TIA x2. He has sporadically been seen in the outpatient cardiology office by Braeden James and Jessie Palma. He was admitted on 04/11/2021 with atrial fibrillation with rapid ventricular response. He has had the following studies/procedures: 1. Cardiac catheterization 2001: Mild nonobstructive CAD per report. 2. Echo 04/11/2021: Moderately dilated LV with normal systolic function. EF 55-60%. Normal wall motion. Moderate concentric LVH. Severe left atrial dilation. Mild aortic stenosis. RVSP 40. He apparently began having symptoms a few days prior to presentation. He had been busy taking care of his and did not come to the hospital for evaluation immediately. He describes central chest discomfort which was cons tant starting 04/09/2021 at approximately 7:00 a.m. and persisted throughout the entire day. There was no change in the chest discomfort with exertion. Chest discomfort occurred at rest. He also has been experiencing dyspnea with exertion throughout this time as well. He describes exertional lightheadedness but no syncope. He has chronic lower extremity swelling for many years which he describes as stable. While here, he was noted to be in atrial fibrillation with rapid ventricular response. He has been given multiple doses of intravenous metoprolol without reported improvement. He was placed on a diltiazem drip on 04/11/2021 which improved his heart rate, however it remained tachycardic on 10 milligrams/hour. He was given digoxin 500 mcg IV x1 on 04/11/2021 and then late 04/11/2021 into 04/12/2021, amiodarone was given by primary hospitalist service. When he was seen this afternoon, he remained on amiodarone drip and diltiazem drip, as well as oral metoprolol, which he also had taken at home. His breathing has improved but is not yet back to baseline. He has not had any further chest discomfort. He denies syncope, palpitations, melena, hematochezia, hematuria, fevers, nausea, vomiting. Review of systems: As above. Review of systems otherwise negative/unremarkable. Family history: He is uncertain if there is a history of premature CAD. Social history: Quit smoking in approximately 2014 after smoking for several years. Occasional alcohol. No drugs. Lives at home with his . Had 2 children, a son who at the age of 53 and a daughter who lives in [place]. He was alone in his hospital room. Allergies Allergy/AdvReac Type Severity Reaction Status Date / Time acetazolamide Allergy Intermediate swelling Verified 04/11/21 14:47 [From Diamox Sequels] Home Medications Medication Instructions Recorded Confirmed Type aspirin 81 mg tablet,delayed 81 mg PO QAM #30 tab 01/12/19 04/11/21 Rx release (Ecotrin Low Strength) docusate sodium 100 mg capsule 100 mg PO BIDM #30 cap 01/12/19 04/11/21 Rx (Colace) ipratropium 0.5 mg-albuterol 3 mg 3 ml INHALATION .COMPLEX PRN #90 ml 09/24/19 04/11/21 Rx (2.5 mg base)/3 mL nebulization soln nebulizer accessories (A.I.R.S #1 ea 09/24/19 12/08/20 Rx Nebulizer Replacement) nebulizers (Aeroneb Go Nebulizer) #1 ea 09/24/19 12/08/20 Rx calcium carbonate 500 mg (1,250 500 tab PO BID 04/11/21 04/11/21 History mg)-vitamin D3 400 unit tablet (Calcium 500 + D) clopidogrel 75 mg tablet (Plavix) 75 mg PO QAM 04/11/21 04/11/21 History furosemide 80 mg tablet (Lasix) 80 mg PO QAM 04/11/21 04/11/21 History lisinopril 10 mg tablet (Zestril) 10 mg PO QAM 04/11/21 04/11/21 History metoprolol tartrate 50 mg tablet 50 mg PO BID 04/11/21 04/11/21 History (Lopressor) multivitamin (Daily Multi-Vitamin) 1 tab PO QAM 04/11/21 04/11/21 History omeprazole 20 mg capsule,delayed 20 mg PO QAM 04/11/21 04/11/21 History release potassium chloride 20 mEq 20 meq PO BID 04/11/21 04/11/21 History tablet,extended release(part/cryst) (Klor-Con M) simvastatin 40 mg tablet (Zocor) 40 mg PO HS 04/11/21 04/11/21 History terazosin 5 mg capsule 5 mg PO HS 04/11/21 04/11/21 History Patient History Medical History (HFpEF) heart failure with preserved ejection fraction Aortic stenosis, mild CAD (coronary artery disease) Cancer of prostate Chronic hypoxemic respiratory failure COPD (chronic obstructive pulmonary disease) Depression DVT (deep venous thrombosis) Dyslipidemia Heart disease HTN (hypertension) Myocardial infarct Sleep apnea TIA (transient ischemic attack) Surgical History History of appendectomy Hx of tonsillectomy Hx of vasectomy Family History Family/Other Prostate cancer Myocardial infarction Denies family history of Ovarian cancer Breast cancer Colorectal cancer Social History Smoking Status: Former smoker Tobacco Type: Cigarettes Smoking End Date: 2014; Second Hand Exposure: No; Do You Dip or Chew Tobacco: No; Tobacco Cessation Education Requested by Patient: No Hx Alcohol Use: Yes Alcohol type: beer Alcohol Intake Frequency: 2-4 x/Month Hx Substance Use: No Preferred Language: Montenegrin Communication Ability: Effective Route Agent Required: No Beliefs That Will Affect Care: None marital status: Current Living Situation: Spouse current occupational status: retired Other Information That Helps Us Care for You: No Feels Safe at Home: Yes caffeine: Yes Dental Care, Regularly: No Physical Activity Frequency: Does not Exercise Seatbelt Use: always Sunscreen Use: No Assistive Devices: Cane, Oxygen - Continuous and Walker Physical Exam Physical Exam: Gen.: No acute distress. Alert and oriented. HEENT: Anicteric sclera. Neck: Thick neck. No bruits. Normal carotid upstrokes bilaterally. Cardiac: PMI was non palpable. No ventricular heave. Irregularly irregular and tachycardic. Normal S1-S2. 1/6 systolic ejection murmur. No rubs or gallops. Pulmonary: Decreased breath sounds, especially left base, otherwise clear to auscultation bilaterally without wheezes, rales, or rhonchi. Abdomen: Soft, nontender, nondistended, with normoactive bowel sounds. No bruits noted. Extremities: 2+ radial pulses bilaterally. 2+ posterior tibialis pulses bilaterally. 1+ bilateral lower extremity edema. No cyanosis. Psychiatric: Affect appears appropriate. Chest: Very tender to palpation, reproducing chest pain as noted above in HPI. Results & Data ([facility]) Vital Signs (Past 12 Hours) Vital Signs Temp Pulse Resp BP Pulse Ox 04/12/21 15:15 36.5 C 77 18 105/70 98 04/12/21 10:56 36.4 C L 72 20 128/57 L 92 04/12/21 07:33 36.4 C L 94 H 18 144/55 H 97 Intake & Output 04/10/21 04/11/21 04/12/21 04/13/21 06:59 06:59 06:59 06:59 Intake Total 794.068 / 794.068 513.690 / 513.690 Output Total 1075 / 1075 650 / 650 Balance -280.932 / -280.932 -136.310 / -136.310 Weight 241 lb 13.553 oz Laboratory Results Laboratory Results - last 24 hr 04/11/21 04/12/21 04/12/21 20:41 02:17 06:39 WBC 7.56 RBC 3.33 L Hgb 11.0 L Hct 35.0 L MCV 105.1 H MCH 33.0 MCHC 31.4 L RDW Std Deviation 55.9 H RDW Coeff of Luciano 14.6 H Plt Count 215 MPV 11.3 H Immature Gran % (Auto) 0.3 Neut % (Auto) 66.2 Lymph % (Auto) 22.6 Ector % (Auto) 8.5 Eos % (Auto) 2.1 Baso % (Auto) 0.3 Neut # (Auto) 5.01 Lymph # (Auto) 1.71 Ector # (Auto) 0.64 H Eos # (Auto) 0.16 Baso # (Auto) 0.02 Immature Gran # (Auto) 0.02 Sodium Potassium Chloride Carbon Dioxide Anion Gap BUN Creatinine Est Cr Clr Drug Dosing Est GFR ( Amer) Est GFR (Non-Af Amer) BUN/Creatinine Ratio Glucose Estimat Average Glucose Hemoglobin A1c Calcium Troponin I 0.162 H* 0.177 H* Triglycerides Cholesterol LDL Cholesterol, Calc VLDL Cholesterol, Calc HDL Cholesterol Cholesterol/HDL Ratio 04/12/21 04/12/21 06:39 06:39 WBC RBC Hgb Hct MCV MCH MCHC RDW Std Deviation RDW Coeff of Luciano Plt Count MPV Immature Gran % (Auto) Neut % (Auto) Lymph % (Auto) Ector % (Auto) Eos % (Auto) Baso % (Auto) Neut # (Auto) Lymph # (Auto) Ector # (Auto) Eos # (Auto) Baso # (Auto) Immature Gran # (Auto) Sodium 140 Potassium 3.8 Chloride 102 Carbon Dioxide 34 H Anion Gap 4.0 BUN 26 H Creatinine 0.99 Est Cr Clr Drug Dosing 73.9 Est GFR ( Amer) 83.6 Est GFR (Non-Af Amer) 72.1 BUN/Creatinine Ratio 26.0 H Glucose 108 H Estimat Average Glucose 100 Hemoglobin A1c 5.1 Calcium 8.8 Troponin I Triglycerides 71 Cholesterol 128 LDL Cholesterol, Calc 40 VLDL Cholesterol, Calc 14 HDL Cholesterol 74 Cholesterol/HDL Ratio 2 Diagnostic Findings Echo report reviewed as noted above in HPI. Telemetry personally reviewed: Atrial fibrillation with rapid ventricular response. ECG personally reviewed: ECG 04/11/2021 at 10:21 a.m.: AFib 99 beats per minute. LVH. Lateral ST/T- wave abnormality. ECG 04/12/2021 at 6:17 a.m.: AFib 89 beats per minute. Anterior ST/T-wave abnormality. Chest x-ray 04/11/2021: Stable elevation left hemidiaphragm as per Radiology. No significant pulmonary vascular congestion. Medications Administered Current Inpatient Medications Acetaminophen (Acetaminophen 325 Mg Tab) 650 mg PO Q4H PRN PRN Reason: Pain or Fever Stop: 05/11/21 14:29 Albuterol (Albut/Ipratrop 3mg/0.5mg Neb 3 Ml Vial) 3 ml INH Q4R PRN PRN Reason: shortness of breath Stop: 05/11/21 14:29 Aspirin (Aspirin 81 Mg Ectab) 81 mg PO QAM [facility] Stop: 05/12/21 08:59 Last Admin: 04/12/21 07:47 Dose: 81 mg Documented by: Bisacodyl (Bisacodyl 10 Mg Supp) 10 mg SD DAILY PRN PRN Reason: Constipation Stop: 05/12/21 18:06 Calcium Carbonate (Calcium Carbonate 1250mg Tab) 1,250 mg PO BID [facility] Stop: 05/11/21 20:59 Last Admin: 04/12/21 07:46 Dose: 1,250 mg Documented by: Clopidogrel Bisulfate (Clopidogrel Bisulfate 75 Mg Tab) 75 mg PO QAM [facility] Stop: 05/12/21 08:59 Last Admin: 04/12/21 07:47 Dose: 75 mg Documented by: Diltiazem HCl (Diltiazem Hcl 60 Mg Tab) 60 mg PO Q6H [facility] Stop: 05/12/21 16:44 Last Admin: 04/12/21 16:57 Dose: Not Given Documented by: Docusate Sodium (Docusate Sodium 100 Mg Cap) 100 mg PO BIDM [facility] Stop: 05/11/21 16:59 Last Admin: 04/12/21 16:57 Dose: 100 mg Documented by: Enoxaparin Sodium (Enoxaparin Inj 120 Mg/0.8 Ml Syr) 111 mg SQ Q12H [facility] Stop: 05/12/21 13:59 Last Admin: 04/12/21 14:17 Dose: 120 mg Documented by: Diltiazem HCl 125 mg/ Dextrose 125 mls @ 15 mls/hr IV .Q8H20M [facility]; Protocol Stop: 05/11/21 11:14 Last Titration: 04/12/21 18:42 Dose: 15 mg/hr, 15 mls/hr Documented by: Furosemide 80 mg/ Syringe 8 mls @ 4 mls/min IV DAILY [facility] Stop: 05/12/21 09:29 Last Admin: 04/12/21 10:01 Dose: 4 mls/min Documented by: Lisinopril (Lisinopril 10 Mg Tab) [address] [facility] Stop: 05/12/21 08:59 Last Admin: 04/12/21 07:47 Dose: 10 mg Documented by: Metoprolol Tartrate (Metoprolol Tartrate 50 Mg Tab) 50 mg PO BID [facility] Stop: 05/11/21 20:59 Last Admin: 04/12/21 07:48 Dose: 50 mg Documented by: Multivitamins (Multivitamin Tab) [address] [facility] Stop: 05/12/21 08:59 Last Admin: 04/12/21 07:47 Dose: 1 tab Documented by: Ondansetron HCl (Ondansetron Inj 2 Mg/Ml 2 Ml Vial) 4 mg IV Q6H PRN PRN Reason: Nausea Stop: 05/11/21 14:29 Pantoprazole Sodium (Pantoprazole 40 Mg Tab) [address] [facility]; Protocol Stop: 05/12/21 08:59 Last Admin: 04/12/21 07:47 Dose: 40 mg Documented by: Polyethylene Glycol (Polyethylene (Miralax) 17 Gm Pack) 17 gm PO DAILY PRN PRN Reason: Constipation Stop: 05/12/21 18:06 Last Admin: 04/12/21 18:19 Dose: 17 gm Documented by: Potassium Chloride (Potassium Chloride Crtab 20 Meq Tabcr) 20 meq PO BID [facility] Stop: 05/11/21 20:59 Last Admin: 04/12/21 07:48 Dose: 20 meq Documented by: Simvastatin (Simvastatin 40 Mg Tab) 40 mg PO [facility] Stop: 05/11/21 20:59 Last Admin: 04/11/21 20:30 Dose: 40 mg Documented by: Terazosin HCl (Terazosin Hcl 5 Mg Cap) 5 mg PO [facility] Stop: 05/11/21 20:59 Last Admin: 04/11/21 20:30 Dose: 5 mg Documented by: PG Care Time/CCT Total # of Minutes Spent Total Time Spent with Patient: Total time spent is greater than 50% in coordination of care (as documented) at patient's floor/unit and/or counseling patient: Coding Level of Care Code 25866 Initial Inpt Care Lvl 3 Diagnoses Atrial fibrillation with rapid ventricular response I48.91 Chronic heart failure with preserved ejection fraction I50.32 Elevated troponin R77.8 HTN (hypertension) I10 CAD (coronary artery disease) I25.10 Dyslipidemia E78.5 Atypical chest pain R07.89
[2021-04-12] MEDS: TERAZOSIN HCL 5 MG CAP PO SCH (19:36)
[2021-04-13] MEDS: dilTIAZem HCL 125 MG in DEXTROSE 5% 100 ML IV SCH ×4 (01:40→12:49)
[2021-04-13] MEDS: ENOXAPARIN INJ 120 MG/0.8 ML SYR SQ SCH ×2 (01:41→15:19)
[2021-04-13] MEDS: dilTIAZem HCl 60 MG TAB PO SCH ×4 (05:02→22:46)
--- NOTE | 2021-04-13 05:48 | Electrocardiogram Report ---
Test Reason : Blood Pressure : / mmHG Vent. Rate : 089 BPM Atrial Rate : 087 BPM P-R Int : 000 ms QRS Dur : 112 ms QT Int : 334 ms P-R-T Axes : 000 009 193 degrees QTc Int : 406 ms Atrial fibrillation Abnormal ECG When compared with ECG of 11-APR-2021 10:21, ST now depressed in Anterior leads T wave inversion now evident in Anterior leads Confirmed by Lionel De La Cruz ([id number]) on 04/13/2021 5:47:53 AM Referred By: REFERRED SELF Confirmed By:Lionel De La Cruz
[2021-04-13 07:19] LABS: Basophils # (auto) 0.02 K/uL (0-0.2); Basophils % (auto) 0.3 %; Eosinophils # (auto) 0.22 K/uL (0-0.5); Hematocrit (blood only) 33.9 % (42-52); Hemoglobin 10.6 g/dL (14.0-18.0); Immature Granulocytes # (auto) 0.01 K/uL (0.00-0.02); Immature Granulocytes % (auto) 0.1 %; Lymphocytes # (auto) 1.69 K/uL (1.2-3.4); Lymphocytes % (auto) 23.1 %; Mean Corpuscular Hemoglobin 33.3 pg (25-34); Mean Corpuscular Hgb Conc 31.3 g/dL (32-36); Mean Corpuscular Volume 106.6 fL (80-100); Mean Platelet Volume 11.4 fL (7.4-10.4); Monocytes # (auto) 0.47 K/uL (0.11-0.59); Monocytes % (auto) 6.4 %; Neutrophils # (auto) 4.92 K/uL (1.4-6.5); Neutrophils % (auto) 67.1 %; Platelet Count 208 K/uL (130-400); RDW Coefficient of Variation 14.4 % (11.5-14.5); RDW Standard Deviation 56.7 fL (36.4-46.3); Red Blood Count 3.18 M/uL (4.7-6.1); White Blood Count 7.33 K/uL (4.8-10.8)
[2021-04-13 07:48] LABS: Albumin Level 2.7 gm/dl (3.4-5.0); BUN Creatinine Ratio 22.4 (10-20); Calcium 8.7 mg/dl (8.5-10.1); Creatinine Clr Calc Pharmacy 68.3 ml/min; Est GFR (African American) 76.1 ml/min; Est GFR (Non-African American) 65.7 ml/min; Magnesium 1.7 mg/dl (1.8-2.4); Potassium 3.7 mmol/L (3.5-5.1)
[2021-04-13 07:51] LABS: Albumin Globulin Ratio 0.8 (0.9-2); Bilirubin,Total 0.4 mg/dl (0.2-1); Globulin 3.3 gm/dl (2.5-4.0)
[2021-04-13] MEDS: METOPROLOL TARTRATE 100 MG TAB PO SCH ×2 (08:31→20:50)
[2021-04-13] MEDS: PANTOprazole 40 MG TAB PO SCH (08:32)
[2021-04-13] MEDS: ASPIRIN 81 MG ECTAB PO SCH (08:32)
[2021-04-13] MEDS: POTASSIUM CHLORIDE CRTAB 20 MEQ TABCR PO SCH ×2 (08:32→20:49)
[2021-04-13] MEDS: MULTIVITAMIN TAB PO SCH (08:32)
[2021-04-13] MEDS: lisinopril 10 MG TAB PO SCH (08:32)
[2021-04-13] MEDS: CALCIUM CARBONATE 1250MG TAB PO SCH ×2 (08:32→20:50)
[2021-04-13] MEDS: DOCUSATE SODIUM 100 MG CAP PO SCH ×2 (08:33→17:11)
--- NOTE | 2021-04-13 08:40 | Hospitalist Progress Note ---
Date of Service April 13, 2021 Assessment & Plan (1) Rapid atrial fibrillation: Plan: Off drips; meds being titrated; cardiology input greatly appreciated; cardioversion contemplated if not better (2) HTN (hypertension): Plan: Acceptablechange (3) Dyslipidemia: Plan: LDL 40; home dose acceptable (4) Chronic hypoxemic respiratory failure: Plan: Patient is on 2.5 L nasal cannula at home; stable (5) Acute diastolic HF (heart failure): Plan: Much better compensatedswitch to p.o. Lasix (6) Elevated troponin: Plan: likely type II, demand; cardiology following; could need ischemic work-up at some point (7) Hypomagnesemia: Plan: Replace Admission and Anticipated Discharge Date Admission Date: April 11, 2021 Subjective Follow-up of presentation with shortness of breath, chest paindoing much better and feeling better Physical Exam Physical Exam: Constitutional and general: No acute distress, looks biologic age Head and face: No puffiness, atraumatic Eyes: No scleral icterus, extraocular movements normal Neck: Supple, no JVD Musculoskeletal: No acute joint swelling, no bony abnormalities Skin/dermatologic/integument: No rash, no purpura Hematologic and lymphatic: pallor +, no petechia Gastrointestinal/abdomen: Nondistended, soft, nonacute Neurologic: Cranial nerves intact, nonfocal Psychiatry: Awake, alert, pleasant, communicative Cardiovascular: Heart rhythm irregular, no rub, ESM 2 x 6, no gallop Respiratory: Chest movements equal, no use of accessory muscles, no adventitious sounds Decreased breath sounds Extremities: edema +), no cyanosis Results & Data Results & Data ([facility]) Vital Signs (Past 12 Hours) Vital Signs Temp Pulse Resp BP Pulse Ox 04/13/21 07:53 36.3 C L 80 20 111/55 L 98 04/13/21 05:01 105/63 04/13/21 03:51 36.9 C 81 19 98/49 L 97 04/12/21 23:45 36.8 C 131 H 19 114/61 96 Laboratory Results Laboratory Results - last 24 hr 04/13/21 04/13/21 06:54 06:54 WBC 7.33 RBC 3.18 L Hgb 10.6 L Hct 33.9 L MCV 106.6 H MCH 33.3 MCHC 31.3 L RDW Std Deviation 56.7 H RDW Coeff of Luciano 14.4 Plt Count 208 MPV 11.4 H Immature Gran % (Auto) 0.1 Neut % (Auto) 67.1 Lymph % (Auto) 23.1 Falls % (Auto) 6.4 Eos % (Auto) 3.0 Baso % (Auto) 0.3 Neut # (Auto) 4.92 Lymph # (Auto) 1.69 Falls # (Auto) 0.47 Eos # (Auto) 0.22 Baso # (Auto) 0.02 Immature Gran # (Auto) 0.01 Sodium 139 Potassium 3.7 Chloride 99 Carbon Dioxide 36 H Anion Gap 4.0 BUN 24 H Creatinine 1.07 Est Cr Clr Drug Dosing 68.3 Est GFR ( Amer) 76.1 Est GFR (Non-Af Amer) 65.7 BUN/Creatinine Ratio 22.4 H Glucose 109 H Calcium 8.7 Magnesium 1.7 L Total Bilirubin 0.4 AST 29 ALT 58 Alkaline Phosphatase 64 Total Protein 6.0 L Albumin 2.7 L Globulin 3.3 Albumin/Globulin Ratio 0.8 L PG Care Time/CCT Total # of Minutes Spent Total Time Spent with Patient: Total time spent is greater than 50% in coordination of care (as documented) at patient's floor/unit and/or counseling patient: Coding Level of Care Code 28163 Subseq Hosp Care Lvl 2 Diagnoses Rapid atrial fibrillation I48.91 HTN (hypertension) I10 Dyslipidemia E78.5 Chronic hypoxemic respiratory failure J96.11 Acute diastolic HF (heart failure) I50.31 Elevated troponin R77.8 Hypomagnesemia E83.42
[2021-04-13] MEDS: FUROSEMIDE 80 MG TAB PO SCH (09:09)
[2021-04-13] MEDS: MAGNESIUM SULFATE / D5W 1 GM/100 ML BAG IV SCH ×2 (09:09→11:46)
--- NOTE | 2021-04-13 09:57 | Cardiology Progress Note ---
Date of Service April 13, 2021 Assessment & Plan (1) Atrial fibrillation with rapid ventricular response: (2) Chronic heart failure with preserved ejection fraction: (3) Elevated troponin: (4) HTN (hypertension): (5) CAD (coronary artery disease): (6) Dyslipidemia: (7) Atypical chest pain: Plan: ASSESSMENT/PLAN: 1. Atrial fibrillation with rapid ventricular response: New diagnosis for him. Onset likely days prior to presentation. Heart rate not yet adequately controlled. Increased metoprolol to 100 mg twice daily this morning. Heart rate continues to be elevated. Will finish digoxin loading. On oral diltiazem with goal of weaning off of diltiazem drip. May need to further increase oral diltiazem as well. Discussed with him that if heart rate does not sufficiently improve, would once again consider transesophageal echo followed by cardi oversion. He would like to avoid transesophageal echo but acknowledges that if his heart rate proved more difficult to control, he would be agreeable to undergo the procedure tomorrow. Continue anticoagulation therapy for stroke risk reduction given elevated chads Vasc score. Would recommend novel agent. Primary hospitalist is evaluating possibility of Eliquis. 2. Elevated troponin: Likely due to rapid heart rate in the setting of atrial fibrillation. His chest pain is atypical and reproducible on exam. Ischemic evaluation not necessary at this time. 3. Atypical chest pain: Reproducible on exam. Likely musculoskeletal component but also may have had chest discomfort from rapid heart rate. Symptoms have resolved with rate control. 4. Chronic heart failure with preserved EF: Difficult to know his volume status based on exam. He reports stable lower extremity swelling. Chest x-ray not highly suggestive of CHF. His dyspnea with exertion was likely related to his AFib. Would try to maintain net negative fluid balance. Takes Lasix 80 mg p.o. daily at home and was receiving 80 mg IV here until today when he was switched to p.o.. Monitor electrolytes and renal function closely. Low-sodium diet. Strict I&Os. Daily weights. 5. CAD: Described as mild nonobstructive CAD in the past. No definite angina. On anticoagulation therapy. While fully anticoagulated, would not continue dual anti-platelet therapy which he has been on as an outpatient. Presumably, he is on dual anti-platelet therapy given prior TIA. Plavix discontinued. Continue beta-lalito. Continue statin therapy. 6. Hypertension: Blood pressure well controlled. Rate-controlling medications as above. 7. Dyslipidemia: Can continue statin therapy. LDL is well controlled. 8. Disposition: Cardiology will continue to follow. Patient care communicated with primary hospitalist. Admission and Anticipated Discharge Date Admission Date: April 11, 2021 Subjective Chest pain. Shortness of breath is still improved from admission but not yet back to baseline. He denies orthopnea. He denies syncope, near-syncope, palpitations, or bleeding. Review of systems: As above. Physical Exam Physical Exam: Gen.: No acute distress. Alert and oriented. HEENT: Anicteric sclera. Neck: Thick neck. Cardiac: Irregularly irregular and tachycardic. Normal S1-S2. 1/6 systolic e jection murmur. No rubs or gallops. Pulmonary: Decreased breath sounds, but otherwise clear to auscultation bilaterally without wheezes, rales, or rhonchi. Abdomen: Soft, nontender, nondistended, with normoactive bowel sounds. No bruits noted. Extremities: 2+ radial pulses bilaterally. 2+ posterior tibialis pulses bilaterally. 1+ bilateral lower extremity edema. No cyanosis. Psychiatric: Affect appears appropriate. Results & Data ([facility]) Vital Signs (Past 12 Hours) Vital Signs Temp Pulse Resp BP Pulse Ox 04/13/21 07:53 36.3 C L 80 20 111/55 L 98 04/13/21 05:01 105/63 04/13/21 03:51 36.9 C 81 19 98/49 L 97 04/12/21 23:45 36.8 C 131 H 19 114/61 96 Intake & Output 04/11/21 04/12/21 04/13/21 04/14/21 06:59 06:59 06:59 06:59 Intake Total 794.068 / 794.068 932.190 / 932.190 103.25 / 103.25 Output Total 1075 / 1075 1050 / 1050 50 / 50 Balance -280.932 / -280.932 -117.810 / -117.810 53.25 / 53.25 Weight 241 lb 13.553 oz 241 lb 10.026 oz Laboratory Results Laboratory Results - last 24 hr 04/13/21 04/13/21 06:54 06:54 WBC 7.33 RBC 3.18 L Hgb 10.6 L Hct 33.9 L MCV 106.6 H MCH 33.3 MCHC 31.3 L RDW Std Deviation 56.7 H RDW Coeff of Luciano 14.4 Plt Count 208 MPV 11.4 H Immature Gran % (Auto) 0.1 Neut % (Auto) 67.1 Lymph % (Auto) 23.1 [place] % (Auto) 6.4 Eos % (Auto) 3.0 Baso % (Auto) 0.3 Neut # (Auto) 4.92 Lymph # (Auto) 1.69 [place] # (Auto) 0.47 Eos # (Auto) 0.22 Baso # (Auto) 0.02 Immature Gran # (Auto) 0.01 Sodium 139 Potassium 3.7 Chloride 99 Carbon Dioxide 36 H Anion Gap 4.0 BUN 24 H Creatinine 1.07 Est Cr Clr Drug Dosing 68.3 Est GFR ( Amer) 76.1 Est GFR (Non-Af Amer) 65.7 BUN/Creatinine Ratio 22.4 H Glucose 109 H Calcium 8.7 Magnesium 1.7 L Total Bilirubin 0.4 AST 29 ALT 58 Alkaline Phosphatase 64 Total Protein 6.0 L Albumin 2.7 L Globulin 3.3 Albumin/Globulin Ratio 0.8 L Diagnostic Findings Telemetry personally reviewed: Remains atrial fibrillation with rapid ventricular response. Medications Administered Current Inpatient Medications Acetaminophen (Acetaminophen 325 Mg Tab) 650 mg PO Q4H PRN PRN Reason: Pain or Fever Stop: 05/11/21 14:29 Albuterol (Albut/Ipratrop 3mg/0.5mg Neb 3 Ml Vial) 3 ml INH Q4R PRN PRN Reason: shortness of breath Stop: 05/11/21 14:29 Aspirin (Aspirin 81 Mg Ectab) 81 mg PO QAM [facility] Stop: 05/12/21 08:59 Last Admin: 04/13/21 08:32 Dose: 81 mg Documented by: Bisacodyl (Bisacodyl 10 Mg Supp) 10 mg AR DAILY PRN PRN Reason: Constipation Stop: 05/12/21 18:06 Calcium Carbonate (Calcium Carbonate 1250mg Tab) 1,250 mg PO BID [facility] Stop: 05/11/21 20:59 Last Admin: 04/13/21 08:32 Dose: 1,250 mg Documented by: Diltiazem HCl (Diltiazem Hcl 60 Mg Tab) 60 mg PO Q6H [facility] Stop: 05/12/21 16:44 Last Admin: 04/13/21 05:02 Dose: 60 mg Documented by: Docusate Sodium (Docusate Sodium 100 Mg Cap) 100 mg PO BIDM [facility] Stop: 05/11/21 16:59 Last Admin: 04/13/21 08:33 Dose: 100 mg Documented by: Enoxaparin Sodium (Enoxaparin Inj 120 Mg/0.8 Ml Syr) 111 mg SQ Q12H [facility] Stop: 05/12/21 13:59 Last Admin: 04/13/21 01:41 Dose: 111 mg Documented by: Furosemide (Furosemide 80 Mg Tab) 80 mg PO [facility] Stop: 05/13/21 08:59 Last Admin: 04/13/21 09:09 Dose: 80 mg Documented by: Diltiazem HCl 125 mg/ Dextrose 125 mls @ 15 mls/hr IV .Q8H20M [facility]; Protocol Stop: 05/11/21 11:14 Last Admin: 04/13/21 08:33 Dose: 15 mg/hr, 15 mls/hr Documented by: Magnesium Sulfate/Dextrose (Magnesium Sulfate / D5w) 1 gm in 100 mls @ 50 mls/hr IV Q2H [facility] Stop: 04/13/21 12:59 Last Admin: 04/13/21 09:09 Dose: 50 mls/hr Documented by: Lisinopril (Lisinopril 10 Mg Tab) 10 mg PO [facility] Stop: 05/12/21 08:59 Last Admin: 04/13/21 08:32 Dose: 10 mg Documented by: Metoprolol Tartrate (Metoprolol Tartrate 100 Mg Tab) 100 mg PO BID [facility] Stop: 05/13/21 08:59 Last Admin: 04/13/21 08:31 Dose: 100 mg Documented by: Multivitamins (Multivitamin Tab) 1 tab PO [facility] Stop: 05/12/21 08:59 Last Admin: 04/13/21 08:32 Dose: 1 tab Documented by: Ondansetron HCl (Ondansetron Inj 2 Mg/Ml 2 Ml Vial) 4 mg IV Q6H PRN PRN Reason: Nausea Stop: 05/11/21 14:29 Pantoprazole Sodium (Pantoprazole 40 Mg Tab) 40 mg PO [facility]; Protocol Stop: 05/12/21 08:59 Last Admin: 04/13/21 08:32 Dose: 40 mg Documented by: Polyethylene Glycol (Polyethylene (Miralax) 17 Gm Pack) 17 gm PO DAILY PRN PRN Reason: Constipation Stop: 05/12/21 18:06 Last Admin: 04/12/21 18:19 Dose: 17 gm Documented by: Potassium Chloride (Potassium Chloride Crtab 20 Meq Tabcr) 20 meq PO BID [facility] Stop: 05/11/21 20:59 Last Admin: 04/13/21 08:32 Dose: 20 meq Documented by: Simvastatin (Simvastatin 40 Mg Tab) 40 mg PO HS [facility] Stop: 05/11/21 20:59 Last Admin: 04/11/21 20:30 Dose: 40 mg Documented by: Terazosin HCl (Terazosin Hcl 5 Mg Cap) 5 mg PO HS [facility] Stop: 05/11/21 20:59 Last Admin: 04/12/21 19:36 Dose: 5 mg Documented by: PG Care Time/CCT Total # of Minutes Spent Total Time Spent with Patient: Total time spent is greater than 50% in coordination of care (as documented) at patient's floor/unit and/or counseling patient: Coding Level of Care Code 12585 Subseq Hosp Care Lvl 3 Diagnoses Atrial fibrillation with rapid ventricular response I48.91 Chronic heart failure with preserved ejection fraction I50.32 Elevated troponin R77.8 HTN (hypertension) I10 CAD (coronary artery disease) I25.10 Dyslipidemia E78.5 Atypical chest pain R07.89
[2021-04-13] MEDS ORDERED: DIGOXIN 500 MCG/2 ML AMP IV ONE (11:47)
[2021-04-13] MEDS ORDERED: DIGOXIN 250 MCG in SYRINGE 9 ML IV ONE (12:15)
[2021-04-13] MEDS: ONDANSETRON INJ 2 MG/ML 2 ML VIAL IV PRN (12:17)
[2021-04-13] MEDS: THIAMINE HCL 100 MG TAB PO SCH (15:43)
[2021-04-13] MEDS: ATORVASTATIN 40 MG TAB PO SCH (20:48)
[2021-04-13] MEDS: TERAZOSIN HCL 5 MG CAP PO SCH (20:49)
[2021-04-14] MEDS: ENOXAPARIN INJ 120 MG/0.8 ML SYR SQ SCH ×2 (01:28→13:37)
[2021-04-14] MEDS: dilTIAZem HCL 125 MG in DEXTROSE 5% 100 ML IV SCH ×2 (04:25→05:39)
[2021-04-14] MEDS: dilTIAZem HCl 60 MG TAB PO SCH ×4 (04:26→21:52)
--- NOTE | 2021-04-14 06:09 | Electrocardiogram Report ---
Test Reason : Blood Pressure : / mmHG Vent. Rate : 110 BPM Atrial Rate : 170 BPM P-R Int : 000 ms QRS Dur : 106 ms QT Int : 336 ms P-R-T Axes : 000 -06 193 degrees QTc Int : 455 ms Atrial fibrillation with rapid ventricular response Minimal voltage criteria for LVH, may be normal variant Abnormal ECG When compared with ECG of 12-APR-2021 06:17, No significant change Confirmed by Lionel De La Cruz ([id number]) on 04/14/2021 6:09:05 AM Referred By: REFERRED SELF Confirmed By:Lionel De La Cruz
[2021-04-14 07:09] LABS: Basophils # (auto) 0.01 K/uL (0-0.2); Basophils % (auto) 0.2 %; Eosinophils # (auto) 0.25 K/uL (0-0.5); Hematocrit (blood only) 33.9 % (42-52); Hemoglobin 10.4 g/dL (14.0-18.0); Immature Granulocytes # (auto) 0.02 K/uL (0.00-0.02); Immature Granulocytes % (auto) 0.3 %; Lymphocytes # (auto) 1.36 K/uL (1.2-3.4); Lymphocytes % (auto) 21.6 %; Mean Corpuscular Hemoglobin 33.5 pg (25-34); Mean Corpuscular Hgb Conc 30.7 g/dL (32-36); Mean Corpuscular Volume 109.4 fL (80-100); Mean Platelet Volume 11.5 fL (7.4-10.4); Monocytes # (auto) 0.48 K/uL (0.11-0.59); Monocytes % (auto) 7.6 %; Neutrophils # (auto) 4.17 K/uL (1.4-6.5); Neutrophils % (auto) 66.3 %; Platelet Count 210 K/uL (130-400); RDW Coefficient of Variation 14.8 % (11.5-14.5); RDW Standard Deviation 58.9 fL (36.4-46.3); White Blood Count 6.29 K/uL (4.8-10.8)
[2021-04-14 07:56] LABS: Albumin Globulin Ratio 0.9 (0.9-2); Albumin Level 2.5 gm/dl (3.4-5.0); BUN Creatinine Ratio 19.2 (10-20); Bilirubin,Total 0.4 mg/dl (0.2-1); Calcium 8.4 mg/dl (8.5-10.1); Creatinine Clr Calc Pharmacy 58.8 ml/min; Est GFR (African American) 63.1 ml/min; Est GFR (Non-African American) 54.4 ml/min; Globulin 2.9 gm/dl (2.5-4.0); Magnesium 2.4 mg/dl (1.8-2.4); Potassium 5.1 mmol/L (3.5-5.1); Total Protein 5.4 gm/dl (6.4-8.2)
[2021-04-14] MEDS: METOPROLOL TARTRATE 100 MG TAB PO SCH ×2 (08:11→20:46)
[2021-04-14] MEDS: POTASSIUM CHLORIDE CRTAB 20 MEQ TABCR PO SCH (08:11)
[2021-04-14] MEDS: MULTIVITAMIN TAB PO SCH (08:11)
[2021-04-14] MEDS: FUROSEMIDE 80 MG TAB PO SCH (08:11)
[2021-04-14] MEDS: ASPIRIN 81 MG ECTAB PO SCH (08:11)
[2021-04-14] MEDS: CALCIUM CARBONATE 1250MG TAB PO SCH ×2 (08:11→20:45)
[2021-04-14] MEDS: DOCUSATE SODIUM 100 MG CAP PO SCH ×2 (08:11→17:43)
[2021-04-14] MEDS: PANTOprazole 40 MG TAB PO SCH (08:11)
[2021-04-14] MEDS: THIAMINE HCL 100 MG TAB PO SCH (08:12)
--- NOTE | 2021-04-14 10:07 | Hospitalist Progress Note ---
Date of Service April 14, 2021 Assessment & Plan (1) Rapid atrial fibrillation: Plan: Still in A. fib but heart rate controlled; cardiology following; still awake confirmation of Eliquis cost; family reports 1/5 of liquor daily to he deniesif true likely contributes; no clinical withdrawal-thiamine provided but otherwise clinically observe (2) HTN (hypertension): Plan: tending low; given orthostasis stop Terazosin (3) Dyslipidemia: Plan: LDL 40; home dose acceptable (4) Chronic hypoxemic respiratory failure: Plan: Patient is on 2.5 L nasal cannula at home; stable (5) Acute diastolic HF (heart failure): Plan: Well compensatedfollow (6) Elevated troponin: Plan: likely type II, demand; cardiology followingno plans for ischemic work-up at present Plan: Anemia likely chronic; follow Cut back potassium Admission and Anticipated Discharge Date Admission Date: April 11, 2021 Subjective Follow-up of presentation with shortness of breath; doing better; was orthostatic with therapy however Physical Exam Physical Exam: Constitutional and general: No acute distress, looks biologic age Head and face: No puffiness, atraumatic Eyes: No scleral icterus, extraocular movements normal Neck: Supple, no JVD Musculoskeletal: No acute joint swelling, no bony abnormalities Skin/dermatologic/integument: No rash, no purpura Hematologic and lymphatic: pallor +, no petechia Gastrointestinal/abdomen: Nondistended, soft, nonacute Neurologic: Cranial nerves intact, nonfocal Psychiatry: Awake, alert, pleasant, communicative Cardiovascular: Heart rhythm irregular, no rub, ESM 2 x 6, no gallop Respiratory: Chest movements equal, no use of accessory muscles, no adventitious sounds Decreased breath sounds Extremities: edema (+), no cyanosis Results & Data Results & Data ([facility]) Vital Signs (Past 12 Hours) Vital Signs Temp Pulse Pulse Resp BP BP Pulse Ox 04/14/21 07:34 36.6 C 88 20 103/66 96 04/14/21 03:54 36.4 C L 82 18 89/52 L 99 04/14/21 01:20 72 04/13/21 22:31 36.4 C L 71 16 84/52 L 97 Laboratory Results Laboratory Results - last 24 hr 04/14/21 04/14/21 06:46 06:46 WBC 6.29 RBC 3.10 L Hgb 10.4 L Hct 33.9 L MCV 109.4 H MCH 33.5 MCHC 30.7 L RDW Std Deviation 58.9 H RDW Coeff of Luciano 14.8 H Plt Count 210 MPV 11.5 H Immature Gran % (Auto) 0.3 Neut % (Auto) 66.3 Lymph % (Auto) 21.6 [place] % (Auto) 7.6 Eos % (Auto) 4.0 Baso % (Auto) 0.2 Neut # (Auto) 4.17 Lymph # (Auto) 1.36 [place] # (Auto) 0.48 Eos # (Auto) 0.25 Baso # (Auto) 0.01 Immature Gran # (Auto) 0.02 Sodium 139 Potassium 5.1 D Chloride 102 Carbon Dioxide 38 H Anion Gap -1.0 L BUN 24 H Creatinine 1.25 Est Cr Clr Drug Dosing 58.8 Est GFR ( Amer) 63.1 Est GFR (Non-Af Amer) 54.4 BUN/Creatinine Ratio 19.2 Glucose 99 Calcium 8.4 L Magnesium 2.4 Total Bilirubin 0.4 AST 28 ALT 54 Alkaline Phosphatase 59 Total Protein 5.4 L Albumin 2.5 L Globulin 2.9 Albumin/Globulin Ratio 0.9 PG Care Time/CCT Total # of Minutes Spent Total Time Spent with Patient: Total time spent is greater than 50% in coordination of care (as documented) at patient's floor/unit and/or counseling patient: Coding Level of Care Code 04066 Subseq Hosp Care Lvl 2 Diagnoses Rapid atrial fibrillation I48.91 HTN (hypertension) I10 Dyslipidemia E78.5 Chronic hypoxemic respiratory failure J96.11 Acute diastolic HF (heart failure) I50.31 Elevated troponin R77.8
[2021-04-14] MEDS ORDERED: SODIUM CHLORIDE 0.9% 1000ML 250 ML IV ONE (10:49)
--- NOTE | 2021-04-14 12:07 | Cardiology Progress Note ---
Date of Service April 14, 2021 Assessment & Plan (1) Atrial fibrillation with rapid ventricular response: (2) Chronic heart failure with preserved ejection fraction: (3) Elevated troponin: (4) HTN (hypertension): (5) CAD (coronary artery disease): (6) Dyslipidemia: (7) Atypical chest pain: Plan: ASSESSMENT/PLAN: 1. Atrial fibrillation with rapid ventricular response: Newly diagnosed this admission. Heart rate was difficult to control at first but now adequately controlled. Unfortunately, blood pressure has been mildly hypotensive with orthostatic symptoms. Diltiazem 60 mg p.o. q.6 hours has been held for the past 3 consecutive doses. Heart rate seem to improved significantly with after digoxin. Continue metoprolol. Recommend digoxin 125 mcg p.o. once daily. If heart rate becomes more elevated and blood pressure improves, could resume some dose of diltiazem p.o.. He does not wish to undergo cardioversion unless necessary. Continue rate control strategy. Continue anticoagulation therapy for stroke risk reduction given elevated chads Vasc score. Would recommend novel agent. Primary hospitalist is investigating cost of several different agents. 2. Elevated troponin: Likely due to rapid heart rate in the setting of atrial fibrillation. His chest pain was atypical and reproducible on exam. Ischemic evaluation not necessary at this time. 3. Atypical chest pain: Reproducible on exam. Likely musculoskeletal component but also may have had chest discomfort from rapid heart rate. Symptoms have resolved with rate control. 4. Chronic heart failure with preserved EF: Difficult to know his volume status based on exam. He reports stable lower extremity swelling. Chest x-ray not highly suggestive of CHF. His dyspnea with exertion was likely related to his AFib. He had been receiving intravenous Lasix 80 mg daily and is now on his home dose 80 mg p.o. daily. Given hypotension, asked nursing staff to give normal saline 250 mL IV x1 today. He does not appear to be significantly hypervolemic and labs suggest mild azotemia as creatinine has been increasing and BUN remains mildly elevated. Consider reducing Lasix or holding for 1 day or so. Monitor electrolytes and renal function closely. Low-sodium diet. S trict I&Os. Daily weights. 5. CAD: Described as mild nonobstructive CAD in the past. No definite angina. On anticoagulation therapy. While fully anticoagulated, would not continue dual anti-platelet therapy which he has been on as an outpatient. Presumably, he is on dual anti-platelet therapy given prior TIA. Plavix discontinued. Continue beta-lalito. Continue statin therapy. 6. Hypertension history with hypotension: He has been intermittently hypotensive with orthostatic symptoms the past 24 hours. Lisinopril discontinued after rate-controlling medications have been titrated. Small normal saline bolus today. Terazosin held by primary hospitalist service. Diltiazem has been held for the past 3 doses. 7. Dyslipidemia: Can continue statin therapy. LDL is well controlled. 8. Disposition: Patient care communicated with primary hospitalist. I will be away from the hospital for the next several days. Please call Dr. Sawant with any questions or concerns. He will be updated on patient's hospital course and plan of care. Admission and Anticipated Discharge Date Admission Date: April 11, 2021 Subjective Patient was seen earlier this morning. He denies chest pain, syncope, palpitations, or bleeding. He has had some positional lightheadedness when getting up from a seated position and blood pressure has been charted as mildly hypotensive at times. Diltiazem drip has been discontinued. The last 3 consecutive doses of diltiazem p.o. have been held due to hypotension. He believes that his breathing is back to baseline. Review of systems: As above. Physical Exam Physical Exam: Gen.: No acute distress. Alert and oriented. HEENT: Anicteric sclera. Neck: Thick neck. Cardiac: Irregularly irregular with normal rate. Normal S1-S2. 1/6 systolic ejection murmur. No rubs or gallops. Pulmonary: Decreased breath sounds, but otherwise clear to auscultation bilaterally without wheezes, rales, or rhonchi. Abdomen: Soft, nontender, nondistended, with normoactive bowel sounds. No bruits noted. Extremities: 2+ radial pulses bilaterally. 2+ posterior tibialis pulses bilaterally. Trace bilateral lower extremity edema. No cyanosis. Psychiatric: Affect appears appropriate. Results & Data ([facility]) Vital Signs (Past 12 Hours) Vital Signs Temp Pulse Pulse Resp BP BP Pulse Ox 04/14/21 11:03 36.5 C 75 17 92/51 L 92 04/14/21 10:17 76 89/55 L 04/14/21 08:00 99 H 04/14/21 07:34 36.6 C 88 20 103/66 96 04/14/21 03:54 36.4 C L 82 18 89/52 L 99 04/14/21 01:20 72 Laboratory Results Laboratory Results - last 48 hr 04/13/21 04/13/21 04/14/21 06:54 06:54 06:46 WBC 7.33 6.29 RBC 3.18 L 3.10 L Hgb 10.6 L 10.4 L Hct 33.9 L 33.9 L MCV 106.6 H 109.4 H MCH 33.3 33.5 MCHC 31.3 L 30.7 L RDW Std Deviation 56.7 H 58.9 H RDW Coeff of Luciano 14.4 14.8 H Plt Count 208 210 MPV 11.4 H 11.5 H Immature Gran % (Auto) 0.1 0.3 Neut % (Auto) 67.1 66.3 Lymph % (Auto) 23.1 21.6 [place] % (Auto) 6.4 7.6 Eos % (Auto) 3.0 4.0 Baso % (Auto) 0.3 0.2 Neut # (Auto) 4.92 4.17 Lymph # (Auto) 1.69 1.36 [place] # (Auto) 0.47 0.48 Eos # (Auto) 0.22 0.25 Baso # (Auto) 0.02 0.01 Immature Gran # (Auto) 0.01 0.02 Sodium 139 Potassium 3.7 Chloride 99 Carbon Dioxide 36 H Anion Gap 4.0 BUN 24 H Creatinine 1.07 Est Cr Clr Drug Dosing 68.3 Est GFR ( Amer) 76.1 Est GFR (Non-Af Amer) 65.7 BUN/Creatinine Ratio 22.4 H Glucose 109 H Calcium 8.7 Magnesium 1.7 L Total Bilirubin 0.4 AST 29 ALT 58 Alkaline Phosphatase 64 Total Protein 6.0 L Albumin 2.7 L Globulin 3.3 Albumin/Globulin Ratio 0.8 L 04/14/21 06:46 WBC RBC Hgb Hct MCV MCH MCHC RDW Std Deviation RDW Coeff of Luciano Plt Count MPV Immature Gran % (Auto) Neut % (Auto) Lymph % (Auto) [place] % (Auto) Eos % (Auto) Baso % (Auto) Neut # (Auto) Lymph # (Auto) [place] # (Auto) Eos # (Auto) Baso # (Auto) Immature Gran # (Auto) Sodium 139 Potassium 5.1 D Chloride 102 Carbon Dioxide 38 H Anion Gap -1.0 L BUN 24 H Creatinine 1.25 Est Cr Clr Drug Dosing 58.8 Est GFR ( Amer) 63.1 Est GFR (Non-Af Amer) 54.4 BUN/Creatinine Ratio 19.2 Glucose 99 Calcium 8.4 L Magnesium 2.4 Total Bilirubin 0.4 AST 28 ALT 54 Alkaline Phosphatase 59 Total Protein 5.4 L Albumin 2.5 L Globulin 2.9 Albumin/Globulin Ratio 0.9 Diagnostic Findings Telemetry personally reviewed: Atrial fibrillation is now with adequate rate control. No significant pauses. Heart rate mostly 70s to 90s. Medications Administered Current Inpatient Medications Acetaminophen (Acetaminophen 325 Mg Tab) 650 mg PO Q4H PRN PRN Reason: Pain or Fever Stop: 05/11/21 14:29 Albuterol (Albut/Ipratrop 3mg/0.5mg Neb 3 Ml Vial) 3 ml INH Q4R PRN PRN Reason: shortness of breath Stop: 05/11/21 14:29 Aspirin (Aspirin 81 Mg Ectab) 81 mg PO QAM [facility] Stop: 05/12/21 08:59 Last Admin: 04/14/21 08:11 Dose: 81 mg Documented by: Atorvastatin Calcium (Atorvastatin 40 Mg Tab) 40 mg PO HS [facility] Stop: 05/13/21 20:59 Last Admin: 04/13/21 20:48 Dose: 40 mg Documented by: Bisacodyl (Bisacodyl 10 Mg Supp) 10 mg MD DAILY PRN PRN Reason: Constipation Stop: 05/12/21 18:06 Calcium Carbonate (Calcium Carbonate 1250mg Tab) 1,250 mg PO BID [facility] Stop: 05/11/21 20:59 Last Admin: 04/14/21 08:11 Dose: 1,250 mg Documented by: Diltiazem HCl (Diltiazem Hcl 60 Mg Tab) 60 mg PO Q6H [facility] Stop: 05/12/21 16:44 Last Admin: 04/14/21 10:17 Dose: Not Given Documented by: Docusate Sodium (Docusate Sodium 100 Mg Cap) 100 mg PO BIDM [facility] Stop: 05/11/21 16:59 Last Admin: 04/14/21 08:11 Dose: 100 mg Documented by: Enoxaparin Sodium (Enoxaparin Inj 120 Mg/0.8 Ml Syr) 111 mg SQ Q12H [facility] Stop: 05/12/21 13:59 Last Admin: 04/14/21 01:28 Dose: 111 mg Documented by: Furosemide (Furosemide 80 Mg Tab) 80 mg PO [facility] Stop: 05/13/21 08:59 Last Admin: 04/14/21 08:11 Dose: 80 mg Documented by: Diltiazem HCl 125 mg/ Dextrose 125 mls @ 0 mls/hr IV .Q0M [facility]; Protocol Stop: 05/11/21 11:14 Last Admin: 04/14/21 05:39 Dose: Not Given Documented by: Metoprolol Tartrate (Metoprolol Tartrate 100 Mg Tab) 100 mg PO BID [facility] Stop: 05/13/21 08:59 Last Admin: 04/14/21 08:11 Dose: 100 mg Documented by: Multivitamins (Multivitamin Tab) 1 tab PO [facility] Stop: 05/12/21 08:59 Last Admin: 04/14/21 08:11 Dose: 1 tab Documented by: Ondansetron HCl (Ondansetron Inj 2 Mg/Ml 2 Ml Vial) 4 mg IV Q6H PRN PRN Reason: Nausea Stop: 05/11/21 14:29 Last Admin: 04/13/21 12:17 Dose: 4 mg Documented by: Pantoprazole Sodium (Pantoprazole 40 Mg Tab) 40 mg PO [facility]; Protocol Stop: 05/12/21 08:59 Last Admin: 04/14/21 08:11 Dose: 40 mg Documented by: Polyethylene Glycol (Polyethylene (Miralax) 17 Gm Pack) 17 gm PO DAILY PRN PRN Reason: Constipation Stop: 05/12/21 18:06 Last Admin: 04/12/21 18:19 Dose: 17 gm Documented by: Potassium Chloride (Potassium Chloride Crtab 20 Meq Tabcr) 20 meq PO [facility] Stop: 05/15/21 08:59 Thiamine HCl (Thiamine Hcl 100 Mg Tab) 100 mg PO [facility] Stop: 05/13/21 14:29 Last Admin: 04/14/21 08:12 Dose: 100 mg Documented by: PG Care Time/CCT Total # of Minutes Spent Total Time Spent with Patient: Total time spent is greater than 50% in coordination of care (as documented) at patient's floor/unit and/or counseling patient: Coding Level of Care Code 48435 Subseq Hosp Care Lvl 3 Diagnoses Atrial fibrillation with rapid ventricular response I48.91 Chronic heart failure with preserved ejection fraction I50.32 Elevated troponin R77.8 HTN (hypertension) I10 CAD (coronary artery disease) I25.10 Dyslipidemia E78.5 Atypical chest pain R07.89
[2021-04-14] MEDS: WARFARIN SOD 5 MG TAB PO SCH (18:05)
[2021-04-14] MEDS: ATORVASTATIN 40 MG TAB PO SCH (20:45)
[2021-04-14] MEDS: MELATONIN 3 MG TAB PO PRN (23:47)
[2021-04-14] MEDS: POLYETHYLENE (MIRALAX) 17 GM PACK PO PRN (23:47)
[2021-04-15 06:47] LABS: Basophils # (auto) 0.01 K/uL (0-0.2); Basophils % (auto) 0.1 %; Eosinophils # (auto) 0.15 K/uL (0-0.5); Eosinophils % (auto) 2.1 %; Hemoglobin 10.3 g/dL (14.0-18.0); Immature Granulocytes # (auto) 0.03 K/uL (0.00-0.02); Immature Granulocytes % (auto) 0.4 %; Lymphocytes % (auto) 16.8 %; Mean Corpuscular Hgb Conc 30.3 g/dL (32-36); Mean Platelet Volume 11.4 fL (7.4-10.4); Monocytes % (auto) 8.4 %; Neutrophils # (auto) 5.14 K/uL (1.4-6.5); Neutrophils % (auto) 72.2 %; Platelet Count 215 K/uL (130-400); RDW Coefficient of Variation 14.4 % (11.5-14.5); RDW Standard Deviation 56.5 fL (36.4-46.3); Red Blood Count 3.12 M/uL (4.7-6.1); White Blood Count 7.13 K/uL (4.8-10.8)
[2021-04-15 06:55] LABS: Prothrombin Time 9.8 Seconds (9.0-12.0)
[2021-04-15 07:21] LABS: Albumin Level 2.6 gm/dl (3.4-5.0); BUN Creatinine Ratio 20.2 (10-20); Calcium 8.7 mg/dl (8.5-10.1); Creatinine Clr Calc Pharmacy 47.9 ml/min; Est GFR (Non-African American) 42.3 ml/min; Magnesium 2.1 mg/dl (1.8-2.4); Potassium 5.2 mmol/L (3.5-5.1)
[2021-04-15 07:24] LABS: Albumin Globulin Ratio 0.9 (0.9-2); Bilirubin,Total 0.4 mg/dl (0.2-1); Total Protein 5.6 gm/dl (6.4-8.2)
[2021-04-15] MEDS ORDERED: SODIUM CHLORIDE 0.9% 1000ML 250 ML IV ONE (07:51)
--- NOTE | 2021-04-15 08:09 | Hospitalist Progress Note ---
Date of Service April 15, 2021 Assessment & Plan (1) Rapid atrial fibrillation: Plan: Generally rate controlled; on metoprolol and digoxin; none of the DOACs affordableCoumadin may not be the best option but at present limited choicesmay fail but start; stop enoxaparin; no need to bridge for A. fibanticoagulation discussed with cardiology and they agree (2) HTN (hypertension): Plan: Trending low, renal parameters suggest overdiuresisgentle fluid bolus; Lasix on hold (3) Dyslipidemia: Plan: LDL 40; home dose acceptable (4) Chronic hypoxemic respiratory failure: Plan: Patient is on 2.5 L nasal cannula at home; stable (5) Acute diastolic HF (heart failure): Plan: If at all overdiuresisas above (6) Elevated troponin: Plan: likely type II, demand; cardiology followingno plans for ischemic work-up at present (7) Acute renal insufficiency: Plan: Likely overdiuresisas above Plan: Anemia likely chronic; follow Stop potassium Admission and Anticipated Discharge Date Admission Date: April 11, 2021 Subjective Follow-up of presentation with shortness of breath; doing better; lower blood pressures persist but asymptomatic overnight Results & Data Results & Data ([facility]) Vital Signs (Past 12 Hours) Vital Signs Temp Pulse Pulse Resp BP Pulse Ox 04/15/21 03:58 36.4 C L 78 20 87/53 L 93 04/15/21 00:00 114 H 04/14/21 23:24 36.4 C L 88 20 89/52 L 90 Laboratory Results Laboratory Results - last 24 hr 04/15/21 04/15/21 04/15/21 06:19 06:19 06:19 WBC 7.13 RBC 3.12 L Hgb 10.3 L Hct 34.0 L MCV 109.0 H MCH 33.0 MCHC 30.3 L RDW Std Deviation 56.5 H RDW Coeff of Luciano 14.4 Plt Count 215 MPV 11.4 H Immature Gran % (Auto) 0.4 Neut % (Auto) 72.2 Lymph % (Auto) 16.8 [place] % (Auto) 8.4 Eos % (Auto) 2.1 Baso % (Auto) 0.1 Neut # (Auto) 5.14 Lymph # (Auto) 1.20 [place] # (Auto) 0.60 H Eos # (Auto) 0.15 Baso # (Auto) 0.01 Immature Gran # (Auto) 0.03 H PT 9.8 INR 1.0 Sodium 136 Potassium 5.2 H Chloride 98 Carbon Dioxide 39 H Anion Gap -1.0 L BUN 31 H Creatinine 1.54 H Est Cr Clr Drug Dosing 47.9 Est GFR ( Amer) 49.0 Est GFR (Non-Af Amer) 42.3 BUN/Creatinine Ratio 20.2 H Glucose 104 H Calcium 8.7 Magnesium 2.1 Total Bilirubin 0.4 AST 43 H ALT 73 Alkaline Phosphatase 67 Total Protein 5.6 L Albumin 2.6 L Globulin 3.0 Albumin/Globulin Ratio 0.9 PG Care Time/CCT Total # of Minutes Spent Total Time Spent with Patient: Total time spent is greater than 50% in coordination of care (as documented) at patient's floor/unit and/or counseling patient: Coding Level of Care Code 80677 Subseq Hosp Care Lvl 2 Diagnoses Rapid atrial fibrillation I48.91 HTN (hypertension) I10 Dyslipidemia E78.5 Chronic hypoxemic respiratory failure J96.11 Acute diastolic HF (heart failure) I50.31 Elevated troponin R77.8 Acute renal insufficiency N28.9
[2021-04-15] MEDS: THIAMINE HCL 100 MG TAB PO SCH (08:12)
[2021-04-15] MEDS: MULTIVITAMIN TAB PO SCH (08:12)
[2021-04-15] MEDS: CALCIUM CARBONATE 1250MG TAB PO SCH ×2 (08:12→21:06)
[2021-04-15] MEDS: PANTOprazole 40 MG TAB PO SCH (08:12)
[2021-04-15] MEDS: ASPIRIN 81 MG ECTAB PO SCH (08:13)
[2021-04-15] MEDS: DOCUSATE SODIUM 100 MG CAP PO SCH ×2 (08:13→16:02)
[2021-04-15] MEDS ORDERED: POTASSIUM CHLORIDE CRTAB 20 MEQ TABCR PO SCH (09:00)
[2021-04-15] MEDS: METOPROLOL TARTRATE 100 MG TAB PO SCH ×2 (09:34→21:07)
--- NOTE | 2021-04-15 15:35 | Cardiology Progress Note ---
Date of Service April 15, 2021 Assessment & Plan (1) Atrial fibrillation with rapid ventricular response: (2) Chronic heart failure with preserved ejection fraction: (3) Elevated troponin: (4) HTN (hypertension): (5) CAD (coronary artery disease): (6) Dyslipidemia: (7) Atypical chest pain: Plan: ASSESSMENT/PLAN: 1. Atrial fibrillation with rapid ventricular response: Overall rates improved. I would agree that his hypotension is likely related to hypovolemia. Lasix currently on hold with some improvement in blood pressure this afternoon. It would seem reasonable to continue the digoxin and the metoprolol. We can liberalize his activity later this admission. It seems he is a fairly sedentary individual at baseline. Warfarin initiated. 2. Elevated troponin: No current symptoms of chest pain. 3. Atypical chest pain: No complaints of chest pain. 4. Chronic heart failure with preserved EF: His N terminal proBNP was markedly elevated at the time of admission. However, I would agree that he seems intravascularly depleted at this time. Would agree with holding his furosemide. He is known to have preserved LV systolic function. He was lying flat in bed without worsening dyspnea. This would suggest the absence of significant pulm onary edema 5. CAD: Continue beta-blockade, warfarin and statin therapy. 6. Dyslipidemia: Can continue statin therapy. LDL is well controlled. Admission and Anticipated Discharge Date Admission Date: April 11, 2021 Subjective This afternoon the patient claims to be comfortable in bed. He states that with ambulation to the bathroom a has some dizziness. He states when he has been up in a chair for a while is back begins to her. With ambulation he has some [place] ent of dyspnea. Lying flat in bed he did not describe shortness of breath. No palpitations. Physical Exam Physical Exam: Gen.: No acute distress. Alert and oriented. HEENT: Anicteric sclera. Neck: Thick neck. Cardiac: Irregularly irregular with normal rate. Normal S1-S2. 1/6 systolic ejection murmur. No rubs or gallops. Pulmonary: Decreased breath sounds, but otherwise clear to auscultation bilaterally without wheezes, rales, or rhonchi. Abdomen: Obese Extremities: No edema Psychiatric: Affect appears appropriate. Results & Data ([facility]) Vital Signs (Past 12 Hours) Vital Signs Temp Pulse Pulse Resp BP BP Pulse Ox 04/15/21 15:15 36.6 C 81 16 119/72 99 04/15/21 14:57 106 H 04/15/21 11:48 36.5 C 83 16 109/73 98 04/15/21 10:55 90 04/15/21 09:00 37.0 C 63 18 118/54 L 95 04/15/21 03:58 36.4 C L 78 20 87/53 L 93 Laboratory Results Abnormal Lab Results 04/15/21 04/15/21 04/15/21 06:19 06:19 06:19 WBC 7.13 RBC 3.12 L Hgb 10.3 L Hct 34.0 L MCV 109.0 H MCH 33.0 MCHC 30.3 L RDW Std Deviation 56.5 H RDW Coeff of Luciano 14.4 Plt Count 215 MPV 11.4 H Immature Gran % (Auto) 0.4 Neut % (Auto) 72.2 Lymph % (Auto) 16.8 [place] % (Auto) 8.4 Eos % (Auto) 2.1 Baso % (Auto) 0.1 Neut # (Auto) 5.14 Lymph # (Auto) 1.20 [place] # (Auto) 0.60 H Eos # (Auto) 0.15 Baso # (Auto) 0.01 Immature Gran # (Auto) 0.03 H PT 9.8 INR 1.0 Sodium 136 Potassium 5.2 H Chloride 98 Carbon Dioxide 39 H Anion Gap -1.0 L BUN 31 H Creatinine 1.54 H Est Cr Clr Drug Dosing 47.9 Est GFR ( Amer) 49.0 Est GFR (Non-Af Amer) 42.3 BUN/Creatinine Ratio 20.2 H Glucose 104 H Calcium 8.7 Magnesium 2.1 Total Bilirubin 0.4 AST 43 H ALT 73 Alkaline Phosphatase 67 Total Protein 5.6 L Albumin 2.6 L Globulin 3.0 Albumin/Globulin Ratio 0.9 PG Care Time/CCT Total # of Minutes Spent Total Time Spent with Patient: Total time spent is greater than 50% in coordination of care (as documented) at patient's floor/unit and/or counseling patient: Coding Level of Care Code 79933 Subseq Hosp Care Lvl 2 Diagnoses Atrial fibrillation with rapid ventricular response I48.91 Chronic heart failure with preserved ejection fraction I50.32 Elevated troponin R77.8 HTN (hypertension) I10 CAD (coronary artery disease) I25.10 Dyslipidemia E78.5 Atypical chest pain R07.89
[2021-04-15] MEDS: DIGOXIN 0.125 MG TAB PO SCH (16:01)
[2021-04-15] MEDS: WARFARIN SOD 5 MG TAB PO SCH (16:02)
[2021-04-15] MEDS: ATORVASTATIN 40 MG TAB PO SCH (21:07)
[2021-04-15] MEDS: MICONAZOLE NITRATE POWDER 43 GM EXT SCH (21:07)
--- NOTE | 2021-04-15 21:07 | Communication Note ---
Date of Service: April 15, 2021 Asked to evaluate patient for chest pain. Pain located around the 3-4 rib at the costochondral angle. Significant tenderness to palpation, describes the pain as sharp and does not worsen with activity. Initially started after laying back into bed after using the restroom. PE: Heart tachycardic, irregular, no murmurs Lungs relatively CTA b/l MSK significant TTP at the rib 3-4 costochondral angle -EKG with some slight worsening of T wave depressions in leads V3 -Pain improved to a 5/10 at this time -Suspect more costochondritis at this time -Will order for diclofenac gel topical Resident Activity Tracking Resident Involvement: Resident Care Provided and Card Doffer Coverage Note Care Provided: Adult Hospital Medicine
[2021-04-15] MEDS: DICLOFENAC SOD 1% GEL 100 GM TUBE EXT PRN (22:46)
[2021-04-16 05:54] LABS: Basophils # (auto) 0.01 K/uL (0-0.2); Basophils % (auto) 0.1 %; Eosinophils % (auto) 2.9 %; Hematocrit (blood only) 33.9 % (42-52); Hemoglobin 10.5 g/dL (14.0-18.0); Immature Granulocytes # (auto) 0.02 K/uL (0.00-0.02); Immature Granulocytes % (auto) 0.3 %; Lymphocytes # (auto) 1.35 K/uL (1.2-3.4); Lymphocytes % (auto) 19.6 %; Mean Corpuscular Hemoglobin 33.9 pg (25-34); Mean Corpuscular Volume 109.4 fL (80-100); Mean Platelet Volume 11.4 fL (7.4-10.4); Monocytes # (auto) 0.77 K/uL (0.11-0.59); Monocytes % (auto) 11.2 %; Neutrophils # (auto) 4.55 K/uL (1.4-6.5); Neutrophils % (auto) 65.9 %; Platelet Count 209 K/uL (130-400); RDW Coefficient of Variation 14.4 % (11.5-14.5)
[2021-04-16 06:02] LABS: Prothrombin Time 10.1 Seconds (9.0-12.0)
[2021-04-16 06:24] LABS: Albumin Level 2.6 gm/dl (3.4-5.0); BUN Creatinine Ratio 22.8 (10-20); Calcium 8.7 mg/dl (8.5-10.1); Est GFR (Non-African American) 62.1 ml/min; Magnesium 2.2 mg/dl (1.8-2.4); Potassium 4.8 mmol/L (3.5-5.1)
[2021-04-16 06:28] LABS: Albumin Globulin Ratio 0.9 (0.9-2); Bilirubin,Total 0.4 mg/dl (0.2-1); Globulin 2.9 gm/dl (2.5-4.0); Total Protein 5.5 gm/dl (6.4-8.2)
--- NOTE | 2021-04-16 07:32 | Electrocardiogram Report ---
Test Reason : Blood Pressure : / mmHG Vent. Rate : 130 BPM Atrial Rate : 133 BPM P-R Int : 000 ms QRS Dur : 090 ms QT Int : 290 ms P-R-T Axes : 000 -08 238 degrees QTc Int : 426 ms Atrial fibrillation with rapid ventricular response Marked ST abnormality, possible inferior subendocardial injury Abnormal ECG Confirmed by Rodriguez Sawant ([id number]) on 04/16/2021 7:32:07 AM Referred By: REFERRED SELF Confirmed By:Kumar Sawant
[2021-04-16] MEDS: MULTIVITAMIN TAB PO SCH (08:28)
[2021-04-16] MEDS: PANTOprazole 40 MG TAB PO SCH (08:28)
[2021-04-16] MEDS: METOPROLOL TARTRATE 100 MG TAB PO SCH ×3 (08:29→20:14)
[2021-04-16] MEDS: ASPIRIN 81 MG ECTAB PO SCH (08:29)
[2021-04-16] MEDS: DOCUSATE SODIUM 100 MG CAP PO SCH ×2 (08:29→16:43)
[2021-04-16] MEDS: CALCIUM CARBONATE 1250MG TAB PO SCH ×2 (08:29→20:15)
[2021-04-16] MEDS: MICONAZOLE NITRATE POWDER 43 GM EXT SCH ×2 (08:30→20:19)
[2021-04-16] MEDS: DICLOFENAC SOD 1% GEL 100 GM TUBE EXT PRN ×2 (08:30→21:50)
[2021-04-16] MEDS: THIAMINE HCL 100 MG TAB PO SCH (08:34)
[2021-04-16] MEDS: HEPARIN SOD 5,000 UNIT/0.5 ML VIAL SQ SCH ×3 (09:31→21:50)
--- NOTE | 2021-04-16 10:19 | Cardiology Progress Note ---
Date of Service April 16, 2021 Assessment & Plan (1) Atrial fibrillation with rapid ventricular response: (2) Chronic heart failure with preserved ejection fraction: (3) Elevated troponin: (4) HTN (hypertension): (5) CAD (coronary artery disease): (6) Dyslipidemia: (7) Atypical chest pain: Plan: ASSESSMENT/PLAN: 1. Atrial fibrillation with rapid ventricular response: His rates are fairly stable. No pauses or significant episodes of bradycardia. Still in atrial fibrillation. I think we given extra dose of digoxin today and check the level tomorrow. Continue Eliquis. Blood pressures are improved today. Overall volume status appears improved. He likely does not require the full dose of Lasix daily. Perhaps 40 mg daily would be a more appropriate dose. No evidence of pulmonary vascular congestion. 2. Elevated troponin: Not related to an acute coronary syndrome 3. Atypical chest pain: He had some recurrent symptoms last night which were reproducible on examination. Diclofenac gel was applied. Do not believe this represents coronary disease. Possibly related to elevated heart rates with activity. 4. Chronic heart failure with preserved EF: Renal function and overall volume status appears improved with holding a dose of Lasix yesterday. He likely benefits from reduced dose of Lasix. 5. CAD: Continue beta-blockade, warfarin and statin therapy. 6. Dyslipidemia: Can continue statin therapy. LDL is well controlled. He has significant limitations at home with walking. Some of this is related to breathing difficulty and other simply musculoskeletal in nature. I do not believe his overall rate control needs to be perfect. Think he has responded to digoxin and will need to monitor level to get the dosing correct. Hopefully with more digoxin in better volume status rate control and blood pressure will be adequate. I think the only other viable intervention if we are not achieving adequate rate control with her current medications would be the addition of amiodarone. Admission and Anticipated Discharge Date Admission Date: April 11, 2021 Subjective The patient reported 1 episode of chest pain last evening. He states this is the same symptom that prompted him to come to the hospital. It seems to be a combination between tenderness along the ribs and a sense of palpitation. Occurred after going to the bathroom. Is not recurred. He states that his breathing is not good, but appears to be at baseline. Not currently aware of palpitations. Dizziness is improved. Review of Systems Review of Systems: Per HPI Physical Exam Physical Exam: Gen.: No acute distress. Alert and oriented. HEENT: Anicteric sclera. Neck: Thick neck. Cardiac: Irregularly irregular with normal rate. Normal S1-S2. 1/6 systolic ejection murmur. No rubs or gallops. Pulmonary: Decreased breath sounds, but otherwise clear to auscultation bilaterally without wheezes, rales, or rhonchi. Normal respiratory effort. Abdomen: Obese Extremities: No edema Psychiatric: Affect appears appropriate. Results & Data ([facility]) Vital Signs (Past 12 Hours) Vital Signs Temp Pulse Pulse Resp BP BP Pulse Ox 04/16/21 07:43 36.4 C L 57 L 16 98/58 L 93 04/16/21 04:18 36.7 C 85 16 102/71 97 04/16/21 00:00 113 H 04/15/21 23:13 36.8 C 78 16 95/57 L 100 Laboratory Results Abnormal Lab Results 04/16/21 04/16/21 04/16/21 05:30 05:30 05:30 WBC 6.90 RBC 3.10 L Hgb 10.5 L Hct 33.9 L MCV 109.4 H MCH 33.9 MCHC 31.0 L RDW Std Deviation 57.0 H RDW Coeff of Luciano 14.4 Plt Count 209 MPV 11.4 H Immature Gran % (Auto) 0.3 Neut % (Auto) 65.9 Lymph % (Auto) 19.6 [place] % (Auto) 11.2 Eos % (Auto) 2.9 Baso % (Auto) 0.1 Neut # (Auto) 4.55 Lymph # (Auto) 1.35 [place] # (Auto) 0.77 H Eos # (Auto) 0.20 Baso # (Auto) 0.01 Immature Gran # (Auto) 0.02 PT 10.1 INR 1.0 Sodium 137 Potassium 4.8 Chloride 100 Carbon Dioxide 37 H Anion Gap 0 L BUN 26 H Creatinine 1.12 D Est Cr Clr Drug Dosing 66.0 Est GFR ( Amer) 72.0 Est GFR (Non-Af Amer) 62.1 BUN/Creatinine Ratio 22.8 H Glucose 92 Calcium 8.7 Magnesium 2.2 Total Bilirubin 0.4 AST 37 ALT 74 Alkaline Phosphatase 67 Total Protein 5.5 L Albumin 2.6 L Globulin 2.9 Albumin/Globulin Ratio 0.9 PG Care Time/CCT Total # of Minutes Spent Total Time Spent with Patient: Total time spent is greater than 50% in coordination of care (as documented) at patient's floor/unit and/or counseling patient: Coding Level of Care Code 05607 Subseq Hosp Care Lvl 2 Diagnoses Atrial fibrillation with rapid ventricular response I48.91 Chronic heart failure with preserved ejection fraction I50.32 Elevated troponin R77.8 HTN (hypertension) I10 CAD (coronary artery disease) I25.10 Dyslipidemia E78.5 Atypical chest pain R07.89
[2021-04-16] MEDS ORDERED: DIGOXIN 0.125 MG TAB PO ONE (10:20)
--- NOTE | 2021-04-16 11:52 | Hospitalist Progress Note ---
Date of Service April 16, 2021 Assessment & Plan (1) Rapid atrial fibrillation: Plan: Slowly improving but not optimal. Remains on metoprolol 100mg BID and digoxin. DOACs too expensive thus coumadin initiated 04/14/21. Additional dose of digoxin given today (0.125mg) by Dr Sawant. Dig level am. INR in am. Cont tele. (2) HTN (hypertension): Plan: BPs labile, mostly controlled. (3) Dyslipidemia: Plan: Cont lipitor (4) Chronic hypoxemic respiratory failure: Plan: Patient is on 2.5 L NC continuously. 2nd to OHS / MAX?? Sats stable. Cont O2 as previous. (5) Acute diastolic HF (heart failure): Plan: Resolved. Now mildly volume contracted. Hold lasix. (6) Elevated troponin: Plan: Likely myocardial demand ischemia in setting of #1. No ACS. I repeated a troponin today given his chest pain last pm - troponin was actually better than previous. Pain last pm likely non-ischemic. (7) Macrocytosis: Plan: Checked B12/folate - wnl. TSH wnl. Deserves outpatient f/u with heme/onc -- early MDS? other nutritional deficiency? other? (8) Fatigue: Plan: sed rate, crp - largely wnl. b12/folate/tsh wnl. checked ua - suggestive of UTI - start rocephin 2gm IV daily. send culture. (9) History of DVT (deep vein thrombosis): Plan: start heparin 7500 units TID (10) CAD (coronary artery disease): Plan: known CAD cont asa cont statin cont BB see above re: troponins Plan: will update family cont PT/ OT Admission and Anticipated Discharge Date Admission Date: April 11, 2021 Subjective tele overnight - elevated HRs (a.fib), >100 much of the time including at rest. he had a brief episode of chest discomfort last evening - night resident was called - thought to be musculoskeletal as it was reproducible. voltaren gel applied - this helped. pain improved today. scant pleuritic component to it. dyspnea is at baseline - mainly occurs with exertion. lives in trailer at home - walks room to room with baseline dyspnea. lives sedentary lifestyle at home. patient also complains of fatigue, weakness for several weeks. just doesn't have energy. no fevers or chills. denies myalgias. Review of Systems Review of Systems: gen - denies fevers, chills; c/o poor appetite for a few weeks CV - positive for chest pain - see HPI; no orthopnea pulm - mild wheeze/cough GI - no abdominal pain or vomiting Physical Exam Physical Exam: gen - NAD, sitting in chair, obese mouth - MMM, no lesions neck - no obvious JVD heart - tachy, irregularly irregular, s1 s2, no murmur lungs - decreased BS bases, no rales or wheeze abd - soft NT ND BS+ chest - tender to palpation right sternal border ext - 1+ edema b/l, pulses 2+ b/l Results & Data Results & Data ([facility]) Vital Signs (Past 12 Hours) Vital Signs Temp Pulse Pulse Resp BP BP Pulse Ox 04/16/21 11:02 115 H 04/16/21 07:43 36.4 C L 115 H 16 98/58 L 93 04/16/21 04:18 36.7 C 85 16 102/71 97 04/16/21 00:00 113 H Laboratory Results Laboratory Results - last 24 hr 04/16/21 04/16/21 04/16/21 05:30 05:30 05:30 WBC 6.90 RBC 3.10 L Hgb 10.5 L Hct 33.9 L MCV 109.4 H MCH 33.9 MCHC 31.0 L RDW Std Deviation 57.0 H RDW Coeff of Luciano 14.4 Plt Count 209 MPV 11.4 H Immature Gran % (Auto) 0.3 Neut % (Auto) 65.9 Lymph % (Auto) 19.6 [place] % (Auto) 11.2 Eos % (Auto) 2.9 Baso % (Auto) 0.1 Neut # (Auto) 4.55 Lymph # (Auto) 1.35 [place] # (Auto) 0.77 H Eos # (Auto) 0.20 Baso # (Auto) 0.01 Immature Gran # (Auto) 0.02 ESR PT 10.1 INR 1.0 Sodium 137 Potassium 4.8 Chloride 100 Carbon Dioxide 37 H Anion Gap 0 L BUN 26 H Creatinine 1.12 D Est Cr Clr Drug Dosing 66.0 Est GFR ( Amer) 72.0 Est GFR (Non-Af Amer) 62.1 BUN/Creatinine Ratio 22.8 H Glucose 92 Calcium 8.7 Magnesium 2.2 Total Bilirubin 0.4 AST 37 ALT 74 Alkaline Phosphatase 67 Troponin I C-Reactive Protein Total Protein 5.5 L Albumin 2.6 L Globulin 2.9 Albumin/Globulin Ratio 0.9 Vitamin B12 Folate Urine Color Urine Appearance Urine pH Ur Specific [place] Urine Protein Urine Glucose (UA) Urine Ketones Urine Blood Urine Nitrite Urine Bilirubin Urine Urobilinogen Ur Leukocyte Esterase Urine WBC (Auto) Urine RBC (Auto) U Hyaline Cast (Auto) U Epithel Cells (Auto) Urine Bacteria (Auto) 04/16/21 04/16/21 04/16/21 12:08 12:08 12:08 WBC RBC Hgb Hct MCV MCH MCHC RDW Std Deviation RDW Coeff of Luciano Plt Count MPV Immature Gran % (Auto) Neut % (Auto) Lymph % (Auto) [place] % (Auto) Eos % (Auto) Baso % (Auto) Neut # (Auto) Lymph # (Auto) [place] # (Auto) Eos # (Auto) Baso # (Auto) Immature Gran # (Auto) ESR 35 H PT INR Sodium Potassium Chloride Carbon Dioxide Anion Gap BUN Creatinine Est Cr Clr Drug Dosing Est GFR ( Amer) Est GFR (Non-Af Amer) BUN/Creatinine Ratio Glucose Calcium Magnesium Total Bilirubin AST ALT Alkaline Phosphatase Troponin I 0.019 C-Reactive Protein 0.75 H Total Protein Albumin Globulin Albumin/Globulin Ratio Vitamin B12 516 Folate > 20.00 Urine Color Urine Appearance Urine pH Ur Specific [place] Urine Protein Urine Glucose (UA) Urine Ketones Urine Blood Urine Nitrite Urine Bilirubin Urine Urobilinogen Ur Leukocyte Esterase Urine WBC (Auto) Urine RBC (Auto) U Hyaline Cast (Auto) U Epithel Cells (Auto) Urine Bacteria (Auto) 04/16/21 17:20 WBC RBC Hgb Hct MCV MCH MCHC RDW Std Deviation RDW Coeff of Luciano Plt Count MPV Immature Gran % (Auto) Neut % (Auto) Lymph % (Auto) [place] % (Auto) Eos % (Auto) Baso % (Auto) Neut # (Auto) Lymph # (Auto) [place] # (Auto) Eos # (Auto) Baso # (Auto) Immature Gran # (Auto) ESR PT INR Sodium Potassium Chloride Carbon Dioxide Anion Gap BUN Creatinine Est Cr Clr Drug Dosing Est GFR ( Amer) Est GFR (Non-Af Amer) BUN/Creatinine Ratio Glucose Calcium Magnesium Total Bilirubin AST ALT Alkaline Phosphatase Troponin I C-Reactive Protein Total Protein Albumin Globulin Albumin/Globulin Ratio Vitamin B12 Folate Urine Color Yellow Urine Appearance Clear Urine pH 5.5 Ur Specific [place] 1.017 Urine Protein Negative Urine Glucose (UA) Negative Urine Ketones Negative Urine Blood Negative Urine Nitrite Positive A Urine Bilirubin Negative Urine Urobilinogen Negative Ur Leukocyte Esterase Trace H Urine WBC (Auto) 1-5 Urine RBC (Auto) 0-4 U Hyaline Cast (Auto) 1-5 U Epithel Cells (Auto) 10-20 H Urine Bacteria (Auto) 4+ H PG Care Time/CCT Total # of Minutes Spent Total Time Spent with Patient: Total time spent is greater than 50% in coordin ation of care (as documented) at patient's floor/unit and/or counseling patient: Coding Level of Care Code 13513 Subseq Hosp Care Lvl 3 Diagnoses Rapid atrial fibrillation I48.91 HTN (hypertension) I10 Dyslipidemia E78.5 Chronic hypoxemic respiratory failure J96.11 Acute diastolic HF (heart failure) I50.31 Elevated troponin R77.8 Macrocytosis D75.89 Fatigue R53.83 History of DVT (deep vein thrombosis) Z86.718 CAD (coronary artery disease) I25.10
[2021-04-16 12:43] LABS: C Reactive Protein 0.75 mg/dl (0-0.29); Troponin I 0.019 ng/ml (0-0.045)
[2021-04-16 13:18] LABS: Folate (Folic Acid) > 20.00 ng/ml (>5.38); Vitamin B12 516 pg/ml (193-986)
[2021-04-16] MEDS: DIGOXIN 0.125 MG TAB PO SCH (16:42)
[2021-04-16] MEDS: WARFARIN SOD 5 MG TAB PO SCH (16:43)
[2021-04-16 17:32] LABS: Appearance Urine Clear (Clear); Bacteria Urine Automated 4+ (Negative); Bilirubin Urine Negative (Negative); Blood Urine Negative (Negative); Color Urine Yellow; Glucose Urine UA Negative (Negative); Ketones Urine Negative (Negative); Leukocyte Esterase Urine Trace (Negative); Nitrite Urine Positive (Negative); Protein Urine Negative (Negative); RBC Urine Automated 0-4 /hpf (0-4); Specific Gravity Urine 1.017 (1.000-1.030); Urobilinogen Urine Negative (Negative); pH Urine 5.5 (4.5-7.5)
[2021-04-16] MEDS: cefTRIAXone SODIUM 2,000 MG in DEXTROSE 5% 50 ML IV SCH (19:36)
[2021-04-16] MEDS: ATORVASTATIN 40 MG TAB PO SCH (20:15)
[2021-04-17] MEDS ORDERED: KETOROLAC TROMETHAMINE 15 MG/ML VIAL IV ONE (00:13)
[2021-04-17] MEDS: MELATONIN 3 MG TAB PO PRN ×2 (01:08→21:31)
[2021-04-17] MEDS: ACETAMINOPHEN 325 MG TAB PO PRN ×2 (01:08→21:30)
[2021-04-17 06:01] LABS: INR 1.1 (0.9-1.1); Prothrombin Time 10.9 Seconds (9.0-12.0)
[2021-04-17] MEDS: HEPARIN SOD 5,000 UNIT/0.5 ML VIAL SQ SCH ×3 (06:06→21:31)
[2021-04-17 06:28] LABS: BUN Creatinine Ratio 20.9 (10-20); Calcium 8.8 mg/dl (8.5-10.1); Creatinine Clr Calc Pharmacy 65.4 ml/min; Est GFR (African American) 71.3 ml/min; Est GFR (Non-African American) 61.5 ml/min; Magnesium 2.3 mg/dl (1.8-2.4); Potassium 4.5 mmol/L (3.5-5.1)
[2021-04-17] MEDS: ADVANCED PROBIOTIC 1250 MG CAPSULE PO SCH (09:09)
[2021-04-17] MEDS: ASPIRIN 81 MG ECTAB PO SCH (09:10)
[2021-04-17] MEDS: METOPROLOL TARTRATE 100 MG TAB PO SCH ×2 (09:10→19:29)
[2021-04-17] MEDS: CALCIUM CARBONATE 1250MG TAB PO SCH ×2 (09:10→20:20)
[2021-04-17] MEDS: PANTOprazole 40 MG TAB PO SCH (09:10)
[2021-04-17] MEDS: MULTIVITAMIN TAB PO SCH (09:10)
[2021-04-17] MEDS: DOCUSATE SODIUM 100 MG CAP PO SCH ×2 (09:10→17:22)
[2021-04-17] MEDS: THIAMINE HCL 100 MG TAB PO SCH (09:11)
[2021-04-17] MEDS: MICONAZOLE NITRATE POWDER 43 GM EXT SCH ×2 (09:11→20:22)
--- NOTE | 2021-04-17 11:42 | Hospitalist Progress Note ---
Date of Service April 17, 2021 Assessment & Plan (1) Rapid atrial fibrillation: Plan: Rates still not optimal despite metoprolol 100mg BID and digoxin. DOACs too expensive thus coumadin initiated 04/14/21. INR remains 1.1 after several doses of coumadin. Dig level acceptable. Plan - for anticoagulation - give extra dose of coumadin 5mg x 1 today (total 10mg); repeat INR am increase evening metoprolol to 150mg and assess response re-eval in am if still unable to achieve rate control Dr Sawant said we could consider amiodarone for rate control (2) HTN (hypertension): Plan: BPs controlled ESCOBAR was d/c to allow more room for beta lalito titration (3) Dyslipidemia: Plan: Cont lipitor (4) Chronic hypoxemic respiratory failure: Plan: Patient is on 2.5 L NC continuously. 2nd to OHS / MAX?? Sats stable. Cont O2 as previous. (5) Acute diastolic HF (heart failure): Plan: Resolved. Hold lasix. CXR obtained today - no pulm edema. (6) Elevated troponin: Plan: Likely myocardial demand ischemia in setting of #1. No ACS. Pain last pm again likely non-ischemic - responds to voltaren gel. troponins have been wnl. (7) Macrocytosis: Plan: Checked B12/folate - wnl. TSH wnl. Deserves outpatient f/u with heme/onc -- early MDS? other nutritional def iciency? other? (8) Fatigue: Plan: sed rate, crp - largely wnl. b12/folate/tsh wnl. checked ua - suggestive of UTI - started rocephin 2gm IV daily. day #2 of such. (9) History of DVT (deep vein thrombosis): Plan: heparin 7500 units TID (10) CAD (coronary artery disease): Plan: known CAD cont asa cont statin cont BB see above re: troponins (11) UTI (urinary tract infection): Plan: 2nd GNR cont rocephin follow cx ultimately needs MELLY to r/o prostatitis may be contributing to fatigue (12) Constipation: Plan: x-rays today, my reading, with copious stool in rectum was about to give dulcolax suppos and patient had large BM will need bowel regimen Plan: cont PT/ OT Admission and Anticipated Discharge Date Admission Date: April 11, 2021 Subjective tele - a.fib, rates still fairly consistent >100 had sustained rates 130+ late in the afternoon today pt mentions appetite is poor but nursing flowsheets show 75% breakfast consumed he has not had a good BM in 7+ days c/o dyspnea but it is near baseline had another episode of chest wall pain last pm - again relieved w/ the voltaren gel Review of Systems Review of Systems: gen - fatigue, poor appetite CV - chest wall pain, sternal region; no orthopnea pulm - no cough, occasional wheeze; WILSON - but at baseline GI - no vomiting, but constipated Physical Exam Physical Exam: gen - NAD, obese mouth - MMM, no lesions neck - no obvious JVD heart - tachy, irregularly irregular, s1 s2, no murmur lungs - decreased BS bases, no rales or wheeze abd - soft NT ND BS+ chest - nontender to palpation today over sternum ext - <1+ edema b/l, pulses 2+ b/l Results & Data Results & Data ([facility]) Vital Signs (Past 12 Hours) Vital Signs Temp Pulse Pulse Resp BP BP Pulse Ox 04/17/21 11:15 36.8 C 77 20 126/60 97 04/17/21 10:09 99 H 04/17/21 07:29 36.4 C L 78 18 127/68 99 04/17/21 04:01 36.8 C 91 H 18 130/64 98 04/17/21 03:15 117 H 04/17/21 00:01 36.7 C 73 18 135/81 100 Laboratory Results Laboratory Results - last 24 hr 04/17/21 04/17/21 04/17/21 05:23 05:23 05:23 PT 10.9 INR 1.1 Sodium 138 Potassium 4.5 Chloride 101 Carbon Dioxide 39 H Anion Gap -2.0 L BUN 24 H Creatinine 1.13 Est Cr Clr Drug Dosing 65.4 Est GFR ( Amer) 71.3 Est GFR (Non-Af Amer) 61.5 BUN/Creatinine Ratio 20.9 H Glucose 95 Calcium 8.8 Magnesium 2.3 Digoxin Digitoxin Cancelled 04/17/21 05:23 PT INR Sodium Potassium Chloride Carbon Dioxide Anion Gap BUN Creatinine Est Cr Clr Drug Dosing Est GFR ( Amer) Est GFR (Non-Af Amer) BUN/Creatinine Ratio Glucose Calcium Magnesium Digoxin 1.5 Digitoxin Diagnostic Findings urine cx - >100,000 CFU gram neg danielle PG Care Time/CCT Total # of Minutes Spent Total Time Spent with Patient: Total time spent is greater than 50% in coordination of care (as documented) at patient's floor/unit and/or counseling patient: Coding Level of Care Code 60393 Subseq Hosp Care Lvl 3 Diagnoses Rapid atrial fibrillation I48.91 HTN (hypertension) I10 Dyslipidemia E78.5 Chronic hypoxemic respiratory failure J96.11 Acute diastolic HF (heart failure) I50.31 Elevated troponin R77.8 Macrocytosis D75.89 Fatigue R53.83 History of DVT (deep vein thrombosis) Z86.718 CAD (coronary artery disease) I25.10 UTI (urinary tract infection) N39.0 Constipation K59.00
[2021-04-17] MEDS ORDERED: bisacodyL 10 MG SUPP PR STA (14:42)
--- NOTE | 2021-04-17 14:58 | XRay Report ---
TWO VIEW CHEST CLINICAL HISTORY: Congestive heart failure. FINDINGS: AP and lateral chest radiographs are compared to study dated 04/11/2021. The AP view is degr aded by patient rotation. Correlation is made with chest CT dated 10/25/2013. The heart is enlarged no ting atherosclerotic calcification of the thoracic aorta. The pulmonary vasculature is noncongested. Chronic interstitial thickening is similar to previous. Volume loss in the right lung is unchanged. S carring/atelectasis is noted at the lung bases. No pleural effusion or pneumothorax is seen. The skel etal structures are osteopenic. There are numerous healed right-sided rib fractures. IMPRESSION: Cardiomegaly with no acute cardiopulmonary abnormality. ACT 112: Negative or not required by law. Electronically signed by: Humberto Lynch M.D. 04/17/2021 2:57 PM
--- NOTE | 2021-04-17 15:56 | XRay Report ---
KUB CLINICAL HISTORY: Constipation. FINDINGS: 4 AP supine abdominal radiographs are correlated with abdominal CT dated 08/17/2013. There is rectosigmoid fecal retention and mild to moderate constipation. There is mild gaseous distention of the colon with no radiographic evidence of high-grade bowel obstruction. No evidence of intraperitone al free air is seen on these supine views. There are no abnormal abdominal calcifications. Brachyther apy implants are noted in the prostate. The skeletal structures are osteopenic and appear intact. Lum bosacral spondylosis is noted and there is arthritic change seen in the hips. IMPRESSION: 1. Rectosigmoid fecal retention and mild to moderate constipation. 2. There is no radiographic evidence of high-grade bowel obstruction. Electronically signed by: Humberto Lynch M.D. 04/17/2021 3:54 PM
[2021-04-17] MEDS ORDERED: WARFARIN SOD 5 MG TAB PO ONE (16:00)
[2021-04-17] MEDS: DIGOXIN 0.125 MG TAB PO SCH (17:22)
[2021-04-17] MEDS: WARFARIN SOD 5 MG TAB PO SCH (17:22)
[2021-04-17] MEDS: cefTRIAXone SODIUM 2,000 MG in DEXTROSE 5% 50 ML IV SCH (17:23)
[2021-04-17] MEDS ORDERED: METOPROLOL TARTRATE 50 MG TAB PO STA (19:19)
[2021-04-17] MEDS: ATORVASTATIN 40 MG TAB PO SCH (20:20)
[2021-04-17] MEDS: DICLOFENAC SOD 1% GEL 100 GM TUBE EXT PRN (20:20)
[2021-04-18] MEDS: HEPARIN SOD 5,000 UNIT/0.5 ML VIAL SQ SCH ×3 (05:30→21:17)
[2021-04-18 07:06] LABS: INR 1.2 (0.9-1.1); Prothrombin Time 12.4 Seconds (9.0-12.0)
[2021-04-18 07:28] LABS: BUN Creatinine Ratio 22.1 (10-20); Calcium 8.8 mg/dl (8.5-10.1); Creatinine Clr Calc Pharmacy 65.5 ml/min; Est GFR (Non-African American) 62.1 ml/min; Potassium 4.4 mmol/L (3.5-5.1)
[2021-04-18] MEDS: PANTOprazole 40 MG TAB PO SCH (08:17)
[2021-04-18] MEDS: ADVANCED PROBIOTIC 1250 MG CAPSULE PO SCH (08:17)
[2021-04-18] MEDS: METOPROLOL TARTRATE 100 MG TAB PO SCH (08:17)
[2021-04-18] MEDS: MULTIVITAMIN TAB PO SCH (08:17)
[2021-04-18] MEDS: CALCIUM CARBONATE 1250MG TAB PO SCH ×2 (08:17→21:16)
[2021-04-18] MEDS: DOCUSATE SODIUM 100 MG CAP PO SCH ×2 (08:17→16:44)
[2021-04-18] MEDS: ASPIRIN 81 MG ECTAB PO SCH (08:17)
[2021-04-18] MEDS: POLYETHYLENE (MIRALAX) 17 GM PACK PO SCH (08:18)
[2021-04-18] MEDS: SENNA 8.6 MG TAB PO SCH (08:18)
[2021-04-18] MEDS: MICONAZOLE NITRATE POWDER 43 GM EXT SCH (08:18)
[2021-04-18] MEDS: THIAMINE HCL 100 MG TAB PO SCH (08:19)
[2021-04-18] MEDS: DICLOFENAC SOD 1% GEL 100 GM TUBE EXT PRN (08:20)
[2021-04-18] MEDS ORDERED: METOPROLOL TARTRATE 50 MG TAB PO STA (10:02)
[2021-04-18] MEDS: ONDANSETRON INJ 2 MG/ML 2 ML VIAL IV PRN (11:55)
[2021-04-18] MEDS: WARFARIN SOD 7.5 MG TAB PO SCH (16:42)
[2021-04-18] MEDS: cephALEXin 500 MG CAP PO SCH (16:42)
[2021-04-18] MEDS: DIGOXIN 0.125 MG TAB PO SCH (16:44)
[2021-04-18] MEDS: SUCRALFATE 1 GM/10 ML UDC PO SCH ×2 (18:13→21:14)
[2021-04-18] MEDS: NYSTATIN POWDER 15GM BTL EXT SCH ×2 (18:13→21:14)
--- NOTE | 2021-04-18 21:06 | Hospitalist Progress Note ---
Date of Service April 18, 2021 Assessment & Plan (1) Epigastric abdominal pain: Plan: resolution of constipation did not help abdominal complaints. Rx of UTI has not resolved his pain. will add carafate to his PPI in the event this is gastritis, etc. due to RUQ/high epigastric pain will check RUQ u/s in am to r/o biliary causes of pain. at his request check PSA given prior h/o prostate ca. needs MELLY to rule out prostatitis in light of UTI. (2) Rapid atrial fibrillation: Plan: Rates still not optimal despite metoprolol 100mg BID and digoxin. I increased his metoprolol to 150mg BID. DOACs too expensive thus coumadin initiated 04/14/21. INR remains 1.2 after several doses of coumadin. Received 10mg of coumadin yesterday; will give 7.5mg today. Dig level acceptable. Spoke with Dr Sawant from [facility] [place] cardiology. Plan - cont BB 150mg BID. cont dig. if rates still poorly tomorrow then he may add cardizem. (3) HTN (hypertension): Plan: BPs controlled ESCOBAR was d/c to allow more room for beta lalito titration (4) Dyslipidemia: Plan: Cont lipitor (5) Chronic hypoxemic respiratory failure: Plan: Patient is on 2.5 L NC continuously. 2nd to OHS / MAX?? Sats stable. Cont O2 as previous. (6) Acute diastolic HF (heart failure): Plan: Resolved. Hold lasix. CXR yesterday -- no pulm edema. (7) Elevated troponin: Plan: Likely myocardial demand ischemia in setting of #1. No ACS. Has had intermittent chest pains while here felt to be non-ischemic - responds to voltaren gel. troponins have been wnl. (8) Macrocytosis: Plan: Checked B12/folate - wnl. TSH wnl. Deserves outpatient f/u with heme/onc -- early MDS? other nutritional deficiency? other? (9) Fatigue: Plan: sed rate, crp - largely wnl. b12/folate/tsh wnl. has UTI - treating this. see #1 above - additional w/u in progress. (10) History of DVT (deep vein thrombosis): Plan: heparin 7500 units TID (11) CAD (coronary artery disease): Plan: known CAD cont asa cont statin cont BB see above re: troponins (12) UTI (urinary tract infection): Plan: 2nd klebsiella d/c rocephin change to keflex 500mg BID ultimately needs MELLY to r/o prostatitis may be contributing to fatigue (13) Constipation: Plan: resolved cont a bowel regimen (14) History of prostate cancer: Plan: at his request check PSA in am I do not have a baseline to compare with Plan: cont PT/ OT suspect he may need rehab left message for his on voicemail this evening Admission and Anticipated Discharge Date Admission Date: April 11, 2021 Subjective rates still very uncontrolled even at rest rates will climb >150 with minimal activity he also has uncontrolled tachycardia and has significant fatigue/wilson he c/o stomach upset/nausea present for "a few weeks" associated upper abdominal discomfort - pointed to upper abdomen as site of pain pain is typically following meals, sometimes a few minutes after eating no vomiting but did need zofran earlier today for the nausea ate decent breakfast, but poorly at lunch continues to have fatigue sleeping a lot Review of Systems Review of Systems: gen - fatigue, weak, poor appetite CV - intermittent chest discomforts, some w/ activity, some w/ rest pulm - WILSON, but no cough CV - see HPI - no dysuria; asks for PSA to be checked; had prostate ca Rx with xrt seeds 20 yrs ago Physical Exam Physical Exam: gen - NAD, obese, looks tired mouth - MMM, no lesions neck - no obvious JVD heart - tachy, irregularly irregular, s1 s2, no murmur lungs - decreased BS bases, no rales or wheeze abd - soft; Tender RUQ/epigastric region to deep palpation; ND BS+ ext - <1+ edema b/l, pulses 2+ b/l Results & Data Results & Data ([facility]) Vital Signs (Past 12 Hours) Vital Signs Temp Pulse Pulse Pulse Resp BP BP 04/18/21 19:40 36.6 C 84 18 134/65 04/18/21 16:44 102 H 04/18/21 15:24 114 H 04/18/21 15:07 36.5 C 81 19 145/79 H 04/18/21 10:56 36.4 C L 93 H 20 139/63 Pulse Ox 04/18/21 19:40 98 04/18/21 16:44 04/18/21 15:24 04/18/21 15:07 97 04/18/21 10:56 96 Laboratory Results Laboratory Results - last 24 hr 04/18/21 04/18/21 06:29 06:29 PT 12.4 H INR 1.2 H Sodium 140 Potassium 4.4 Chloride 102 Carbon Dioxide 38 H Anion Gap -1.0 L BUN 25 H Creatinine 1.12 Est Cr Clr Drug Dosing 65.5 Est GFR ( Amer) 72.0 Est GFR (Non-Af Amer) 62.1 BUN/Creatinine Ratio 22.1 H Glucose 91 Calcium 8.8 PG Care Time/CCT Total # of Minutes Spent Total Time Spent with Patient: Total time spent is greater than 50% in coordination of care (as documented) at patient's floor/unit and/or counseling patient: Coding Level of Care Code 42263 Subseq Hosp Care Lvl 3 Diagnoses Rapid atrial fibrillation I48.91 HTN (hypertension) I10 Dyslipidemia E78.5 Chronic hypoxemic respiratory failure J96.11 Acute diastolic HF (heart failure) I50.31 Elevated troponin R77.8 Macrocytosis D75.89 Fatigue R53.83 History of DVT (deep vein thrombosis) Z86.718 CAD (coronary artery disease) I25.10 UTI (urinary tract infection) N39.0 Constipation K59.00 Epigastric abdominal pain R10.13 History of prostate cancer Z85.46
[2021-04-18] MEDS: METOPROLOL TARTRATE 50 MG TAB PO SCH (21:15)
[2021-04-18] MEDS: ATORVASTATIN 40 MG TAB PO SCH (21:16)
[2021-04-19] MEDS: HEPARIN SOD 5,000 UNIT/0.5 ML VIAL SQ SCH ×3 (05:35→21:16)
[2021-04-19 08:11] LABS: INR 1.5 (0.9-1.1); Prothrombin Time 14.9 Seconds (9.0-12.0)
[2021-04-19 08:25] LABS: Creatinine Clr Calc Pharmacy 76.1 ml/min; Est GFR (African American) 85.7 ml/min; Est GFR (Non-African American) 73.9 ml/min
[2021-04-19 08:29] LABS: Prostate Specific Antigen 20.1 ng/ml (0-4)
[2021-04-19] MEDS: SUCRALFATE 1 GM/10 ML UDC PO SCH ×4 (09:16→21:14)
[2021-04-19] MEDS: THIAMINE HCL 100 MG TAB PO SCH (09:17)
[2021-04-19] MEDS: ADVANCED PROBIOTIC 1250 MG CAPSULE PO SCH (09:17)
[2021-04-19] MEDS: ASPIRIN 81 MG ECTAB PO SCH (09:17)
[2021-04-19] MEDS: CALCIUM CARBONATE 1250MG TAB PO SCH ×2 (09:17→21:14)
[2021-04-19] MEDS: PANTOprazole 40 MG TAB PO SCH (09:17)
[2021-04-19] MEDS: cephALEXin 500 MG CAP PO SCH ×2 (09:17→21:13)
[2021-04-19] MEDS: METOPROLOL TARTRATE 50 MG TAB PO SCH ×2 (09:17→21:15)
[2021-04-19] MEDS: SENNA 8.6 MG TAB PO SCH (09:18)
[2021-04-19] MEDS: MULTIVITAMIN TAB PO SCH (09:18)
[2021-04-19] MEDS: DOCUSATE SODIUM 100 MG CAP PO SCH ×2 (09:18→17:54)
[2021-04-19] MEDS: POLYETHYLENE (MIRALAX) 17 GM PACK PO SCH (09:18)
[2021-04-19] MEDS: NYSTATIN POWDER 15GM BTL EXT SCH ×3 (09:18→21:15)
--- NOTE | 2021-04-19 15:51 | Ultrasound Report ---
US gallbladder CLINICAL HISTORY: abd discomfort/RUQ; dyspepsia/nausea; r/o stones COMPARISON STUDY: Abdominal ultrasound December 10, 2017. CT of the abdomen and pelvis August 17, 2013. FINDINGS: This exam is compromised by suboptimal penetration. Hepatic echogenicity is mildly increase d. There is no biliary ductal dilatation. The common bile duct measures 6 mm in caliber. There is a 1 .4 cm hepatic cyst. The pancreas is obscured. No gallstones are identified. There is moderate gallbla dder wall thickening. Gallbladder wall is edematous. No sonographic Salinas sign was elicited. There i s no right hydronephrosis. IMPRESSION: 1. Moderately thickened, edematous gallbladder wall. However, no gallstones and no sonographic Salinas sign. Although within the differential, acute cholecystitis is considered less likely. Gallbladder w all thickening is nonspecific and could also be seen in the setting of right heart dysfunction or norma er disease. 2. No biliary ductal dilatation. 3. Exam compromised by suboptimal penetration. Obscured pancreas. ACT 112: Negative or not required by law. Electronically signed by: Rafy Flowers M.D. 04/19/2021 3:50 PM
--- NOTE | 2021-04-19 17:26 | Cardiology Progress Note ---
Date of Service April 19, 2021 Assessment & Plan (1) Atrial fibrillation with rapid ventricular response: (2) Chronic heart failure with preserved ejection fraction: (3) Elevated troponin: (4) HTN (hypertension): (5) CAD (coronary artery disease): (6) Dyslipidemia: (7) Atypical chest pain: Plan: ASSESSMENT/PLAN: 1. Atrial fibrillation with rapid ventricular response: We have not made much of an improvement recently, but his blood pressures have certainly improved. With higher blood pressures we have more leeway with respect to rate control. Diltiazem was started earlier today and I think this will make a significant difference. He has few symptoms associated with the arrhythmia. Continue apixaban 2. Elevated troponin: Not related to an acute coronary syndrome 3. Atypical chest pain: None recently. 4. Chronic heart failure with preserved EF: Admission. This resulted in an element of hypotension. Not gotten his scheduled Lasix in a couple of days. Overall doing better. Some crackles on exam. We will need to watch his exam closely and decide if additional diuretic is warranted. 5. CAD: Continue beta-blockade, warfarin and statin therapy. 6. Dyslipidemia: Can continue statin therapy. LDL is well controlled. Admission and Anticipated Discharge Date Admission Date: April 11, 2021 Subjective The patient had no specific complaints this afternoon. He does report some dyspnea at times. He appears have undergone some mild ambulation that the bathroom back. No dizziness. Some mild dyspnea. No chest pain. No sense of palpitation. Review of Systems Review of Systems: Per HPI Physical Exam Physical Exam: Gen.: No acute distress. Alert and oriented. HEENT: Anicteric sclera. Neck: Thick neck. Cardiac: Irregularly irregular with normal rate. Normal S1-S2. 1/6 systolic ejection murmur. No rubs or gallops. Pulmonary: Some crackles on the right side when he is lying on the right side. Mostly in the base. Prolonged expiratory time. Normal respiratory effort. or rhonchi. Normal respiratory effort. Abdomen: Obese Extremities: No edema Psychiatric: Affect appears appropriate. Results & Data ([facility]) Vital Signs (Past 12 Hours) Vital Signs Temp Pulse Pulse Resp BP Pulse Ox 04/19/21 15:39 36.6 C 83 18 153/69 H 96 04/19/21 11:52 36.4 C L 86 19 125/67 98 04/19/21 08:00 104 H 04/19/21 07:34 36.5 C 93 H 21 129/68 98 Laboratory Results Abnormal Lab Results 04/19/21 04/19/21 07:47 07:47 PT 14.9 H INR 1.5 H Creatinine 0.97 Est Cr Clr Drug Dosing 76.1 Est GFR ( Amer) 85.7 Est GFR (Non-Af Amer) 73.9 Prostate Specific Ag 20.100 H PG Care Time/CCT Total # of Minutes Spent Total Time Spent with Patient: Total time spent is greater than 50% in coordination of care (as documented) at patient's floor/unit and/or counseling patient: Coding Level of Care Code 79868 Subseq Hosp Care Lvl 2 Diagnoses Atrial fibrillation with rapid ventricular response I48.91 Chronic heart failure with preserved ejection fraction I50.32 Elevated troponin R77.8 HTN (hypertension) I10 CAD (coronary artery disease) I25.10 Dyslipidemia E78.5 Atypical chest pain R07.89
[2021-04-19] MEDS: WARFARIN SOD 7.5 MG TAB PO SCH (17:53)
[2021-04-19] MEDS: DIGOXIN 0.125 MG TAB PO SCH (17:53)
[2021-04-19] MEDS: dilTIAZem HCL 30 MG TAB PO SCH ×3 (17:53→21:12)
[2021-04-19] MEDS: ATORVASTATIN 40 MG TAB PO SCH (21:13)
--- NOTE | 2021-04-19 23:00 | Hospitalist Progress Note ---
Date of Service April 19, 2021 Assessment & Plan (1) Epigastric abdominal pain: Plan: resolution of constipation did not help abdominal complaints. Rx of UTI has not resolved his pain. adding carafate to his PPI has not helped nausea/discomfort. due to RUQ/high epigastric pain checked RUQ u/s - no gallstones, but GB wall is quite thickened. given his symptoms & location of pain I think we should pursue HIDA. will order for tomorrow. (2) Rapid atrial fibrillation: Plan: Rates still not optimal despite metoprolol 150mg BID and digoxin. DOACs too expensive thus coumadin initiated 04/14/21. INR 1.5 on coumadin. Continue coumadin 7.5mg today. INR in am. Dig level acceptable. [place] [facility] [place]. Will add cardizem 30mg qid. re-eval in am. (3) HTN (hypertension): Plan: BPs controlled ESCOBAR was d/c to allow more room for beta lalito titration and other meds (4) Dyslipidemia: Plan: Cont lipitor (5) Chronic hypoxemic respiratory failure: Plan: Patient is on 2.5 L NC continuously. 2nd to OHS / MAX?? Sats stable. Cont O2. (6) Acute diastolic HF (heart failure): Plan: Resolved. Compensated. Hold lasix. most recent CXR -- no pulm edema. (7) Elevated troponin: Plan: Likely myocardial demand ischemia in setting of #1. No ACS. Has had intermittent chest pains while here felt to be non-ischemic - responds to voltaren gel. troponins have been wnl. (8) Macrocytosis: Plan: Checked B12/folate - wnl. TSH wnl. Deserves outpatient f/u with heme/onc -- early MDS? other nutritional deficiency? other? (9) Fatigue: Plan: sed rate, crp - largely wnl. b12/folate/tsh wnl. has UTI - treating this. elevated psa - see below. biliary disease? other? see above discussion. (10) History of DVT (deep vein thrombosis): Plan: heparin 7500 units TID (11) CAD (coronary artery disease): Plan: known CAD cont asa cont statin cont BB see above re: troponins (12) UTI (urinary tract infection): Plan: 2nd klebsiella cont keflex 500mg BID day #4 of IV/PO abx ultimately needs MELLY to r/o prostatitis may be contributing to fatigue (13) Constipation: Plan: resolved cont a bowel regimen (14) History of prostate cancer: Plan: at his request checked PSA elevated at 21 I do not have a prior level this could be from prostatitis but can't rule out prostate ca recurrence will perform MELLY tomorrow (15) Elevated PSA: Plan: as above Plan: cont PT/ OT suspect he may need rehab left message for his on voicemail yesterday pm will try to call again tomorrow Admission and Anticipated Discharge Date Admission Date: April 11, 2021 Subjective tele - a.fib rates unchanged, still >100 most times, despite increase in metoprolol yesterday pt still with post-prandial nausea/dyspepsia/stomach discomfort eating fair at best breathing comfortable fatigue continues we discussed his elevated PSA and possibilities for this Review of Systems Review of Systems: gen - no fevers; fatigue, anorexia cv - denied chest pain today pulm - no cough; no orthopnea gi - see HPI gu - frequency of urination Physical Exam Physical Exam: gen - NAD, obese, looks tired / weak mouth - MMM, no lesions neck - no obvious JVD heart - tachy, irregularly irregular, s1 s2, no murmur lungs - decreased BS bases, no rales or wheeze abd - soft; scant tenderness epigastric region to deep palpation; ND BS+ ext - <1+ edema b/l, pulses 2+ b/l Results & Data Results & Data ([facility]) Vital Signs (Past 12 Hours) Vital Signs Temp Pulse Pulse Resp BP BP Pulse Ox 04/19/21 19:46 36.6 C 80 18 132/69 99 04/19/21 15:39 36.6 C 83 18 153/69 H 96 04/19/21 11:52 36.4 C L 86 19 125/67 98 Laboratory Results Laboratory Results - last 24 hr 04/19/21 04/19/21 07:47 07:47 PT 14.9 H INR 1.5 H Creatinine 0.97 Est Cr Clr Drug Dosing 76.1 Est GFR ( Amer) 85.7 Est GFR (Non-Af Amer) 73.9 Prostate Specific Ag 20.100 H PG Care Time/CCT Total # of Minutes Spent Total Time Spent with Patient: Total time spent is greater than 50% in coordination of care (as documented) at patient's floor/unit and/or counseling patient: Coding Level of Care Code 52670 Subseq Hosp Care Lvl 3 Diagnoses Epigastric abdominal pain R10.13 Rapid atrial fibrillation I48.91 HTN (hypertension) I10 Dyslipidemia E78.5 Chronic hypoxemic respiratory failure J96.11 Acute diastolic HF (heart failure) I50.31 Elevated troponin R77.8 Macrocytosis D75.89 Fatigue R53.83 History of DVT (deep vein thrombosis) Z86.718 CAD (coronary artery disease) I25.10 UTI (urinary tract infection) N39.0 Constipation K59.00 History of prostate cancer Z85.46 Elevated PSA R97.20
[2021-04-20] MEDS: HEPARIN SOD 5,000 UNIT/0.5 ML VIAL SQ SCH ×3 (06:07→21:54)
[2021-04-20 06:53] LABS: INR 1.5 (0.9-1.1); Prothrombin Time 14.6 Seconds (9.0-12.0)
[2021-04-20] MEDS: SENNA 8.6 MG TAB PO SCH (08:52)
[2021-04-20] MEDS: MULTIVITAMIN TAB PO SCH (08:52)
[2021-04-20] MEDS: CALCIUM CARBONATE 1250MG TAB PO SCH ×2 (08:52→21:52)
[2021-04-20] MEDS: DOCUSATE SODIUM 100 MG CAP PO SCH ×2 (08:52→17:02)
[2021-04-20] MEDS: cephALEXin 500 MG CAP PO SCH ×2 (08:52→21:54)
[2021-04-20] MEDS: THIAMINE HCL 100 MG TAB PO SCH (08:53)
[2021-04-20] MEDS: dilTIAZem HCL 30 MG TAB PO SCH ×4 (08:53→21:54)
[2021-04-20] MEDS: ADVANCED PROBIOTIC 1250 MG CAPSULE PO SCH (08:53)
[2021-04-20] MEDS: POLYETHYLENE (MIRALAX) 17 GM PACK PO SCH (08:53)
[2021-04-20] MEDS: ASPIRIN 81 MG ECTAB PO SCH (08:53)
[2021-04-20] MEDS: SUCRALFATE 1 GM/10 ML UDC PO SCH ×4 (08:53→21:53)
[2021-04-20] MEDS: PANTOprazole 40 MG TAB PO SCH (08:53)
[2021-04-20] MEDS: METOPROLOL TARTRATE 50 MG TAB PO SCH ×2 (08:53→21:53)
[2021-04-20] MEDS: NYSTATIN POWDER 15GM BTL EXT SCH ×3 (08:54→21:54)
--- NOTE | 2021-04-20 13:52 | Nuclear Medicine Report ---
NUCLEAR MEDICINE HEPATOBILIARY SCAN HISTORY: abnormal GB u/s, right upper quadrant abd pain/nausea COMPARISON: Abdominal ultrasound 04/19/2021. TECHNIQUE: Immediately following the intravenous administration of 5.2 mCi Tc-99m Choletec, dynamic a nterior abdominal imaging was performed. FINDINGS: Uniform hepatic tracer accumulation is shown. Prompt intrahepatic biliary excretion is seen. The gall bladder, common bile duct, and small bowel are all visualized by 35 minutes. This appearance represen ts the normal sequence of biliary excretion. IMPRESSION: 1. No evidence for cystic duct obstruction. ACT 112: Negative or not required by law. Electronically signed by: Juno Rivera M.D. 04/20/2021 1:51 PM
[2021-04-20] MEDS: DIGOXIN 0.125 MG TAB PO SCH (17:01)
[2021-04-20] MEDS: WARFARIN SOD 10 MG TAB PO SCH (17:01)
--- NOTE | 2021-04-20 21:34 | Hospitalist Progress Note ---
Date of Service April 20, 2021 Assessment & Plan (1) Epigastric abdominal pain: Plan: resolution of constipation did not help abdominal complaints. Rx of UTI has not resolved his pain. adding carafate to his PPI has not helped nausea/discomfort. due to RUQ/high epigastric pain checked RUQ u/s - no gallstones, but GB wall wasquite thickened. HIDA scan today normal; no cystic duct obstruction. his symptoms are improved today. will monitor again overnight. (2) Rapid atrial fibrillation: Plan: Rates finally improved with addition of cardizem 30mg qid to his metoprolol 150mg BID and digoxin. DOACs too expensive thus coumadin initiated 04/14/21. INR still 1.5 on coumadin. Increase coumadin to 10mg today. INR in am. Dig level acceptable. Spoke with Dr Sawant from [facility] cardiology. Keep on tele; follow rates overnight. (3) HTN (hypertension): Plan: BPs controlled ESCOBAR was d/c to allow more room for beta lalito titration and other meds cont to keep the ESCOBAR off (4) Dyslipidemia: Plan: Cont lipitor (5) Chronic hypoxemic respiratory failure: Plan: Patient is on 2.5 L NC continuously. 2nd to OHS / MAX?? Sats stable. Cont O2. (6) Acute diastolic HF (heart failure): Plan: Resolved. remains compensated. Most recent CXR -- no pulm edema. decompensation was likely 2nd to rapid a.fib. (7) Elevated troponin: Plan: Likely myocardial demand ischemia in setting of #1. No ACS. Has had intermittent chest pains while here felt to be non-ischemic - troponins have been wnl. NO chest pain today. (8) Macrocytosis: Plan: Checked B12/folate - wnl. TSH wnl. Deserves outpatient f/u with heme/onc -- early MDS? other nutritional deficiency? other? (9) Fatigue: Plan: sed rate, crp - largely wnl. b12/folate/tsh wnl. has UTI - treating this. elevated psa - see below. MAX, anemia, other factors could be contributing. (10) History of DVT (deep vein thrombosis): Plan: heparin 7500 units TID (11) CAD (coronary artery disease): Plan: known CAD cont asa cont statin cont BB see above re: troponins (12) UTI (urinary tract infection): Plan: 2nd klebsiella cont keflex 500mg BID day #5 of IV/PO abx needs MELLY to r/o prostatitis (13) Constipation: Plan: resolved cont bowel regimen (14) History of prostate cancer: Plan: at his request checked PSA elevated at 21 I do not have a prior level this could be from prostatitis but can't rule out prostate ca recurrence will perform MELLY before discharge (15) Elevated PSA: Plan: as above Plan: cont PT/ OT needs rehab left message for his on voicemail again this evening progressing albeit slowly Admission and Anticipated Discharge Date Admission Date: April 11, 2021 Subjective tele overnight - improved rates with addition of cardizem IR yesterday he has had a good day eating well without nausea/emesis/bloating/abd pain moving bowels had negative HIDA scan this am we discussed those test results his breathing is comfortable no orthopnea (although he felt anxious during the HIDA and this made him dyspneic briefly) no chest pains Review of Systems Review of Systems: gen - fatigue CV - no chest pain or PND or palpitations pulm - no cough or dyspnea at rest GI - see HPI - frequency/nocturia Physical Exam Physical Exam: gen - NAD, obese mouth - MMM, no lesions neck - no obvious JVD heart - regular rate, irregularly irregular, s1 s2, no murmur lungs - CTA b/l, no rales or wheeze abd - soft, NT, ND, BS+, no HSM ext - <1+ edema b/l, pulses 2+ b/l psych - a/o x3, a little irritated today Results & Data Results & Data ([facility]) Vital Signs (Past 12 Hours) Vital Signs Temp Pulse Pulse Resp BP BP Pulse Ox 04/20/21 19:52 36.9 C 100 H 19 127/62 98 04/20/21 17:19 87 04/20/21 17:01 87 04/20/21 15:33 36.5 C 22 125/85 100 04/20/21 11:53 36.4 C L 87 20 161/77 H 100 Laboratory Results Laboratory Results - last 24 hr 04/20/21 04/20/21 05:59 07:17 PT 14.6 H INR 1.5 H POC Glucose 95 PG Care Time/CCT Total # of Minutes Spent Total Time Spent with Patient: Total time spent is greater than 50% in coordination of care (as documented) at patient's floor/unit and/or counseling patient: Coding Level of Care Code 92886 Subseq Hosp Care Lvl 3 Diagnoses Epigastric abdominal pain R10.13 Rapid atrial fibrillation I48.91 HTN (hypertension) I10 Dyslipidemia E78.5 Chronic hypoxemic respiratory failure J96.11 Acute diastolic HF (heart failure) I50.31 Elevated troponin R77.8 Macrocytosis D75.89 Fatigue R53.83 History of DVT (deep vein thrombosis) Z86.718 CAD (coronary artery disease) I25.10 UTI (urinary tract infection) N39.0 Constipation K59.00 History of prostate cancer Z85.46 Elevated PSA R97.20
[2021-04-20] MEDS: ATORVASTATIN 40 MG TAB PO SCH (21:52)
[2021-04-20] MEDS: MELATONIN 3 MG TAB PO PRN (23:44)
[2021-04-21] MEDS: HEPARIN SOD 5,000 UNIT/0.5 ML VIAL SQ SCH ×3 (06:35→21:10)
[2021-04-21 08:37] LABS: INR 1.8 (0.9-1.1); Prothrombin Time 17.3 Seconds (9.0-12.0)
[2021-04-21 09:03] LABS: BUN Creatinine Ratio 26.2 (10-20); Calcium 9.5 mg/dl (8.5-10.1); Creatinine Clr Calc Pharmacy 81.5 ml/min; Est GFR (African American) 93.8 ml/min; Est GFR (Non-African American) 80.9 ml/min; Potassium 4.4 mmol/L (3.5-5.1)
[2021-04-21] MEDS: METOPROLOL TARTRATE 50 MG TAB PO SCH ×2 (09:06→21:10)
[2021-04-21] MEDS: SENNA 8.6 MG TAB PO SCH (09:06)
[2021-04-21] MEDS: CALCIUM CARBONATE 1250MG TAB PO SCH ×2 (09:07→21:13)
[2021-04-21] MEDS: cephALEXin 500 MG CAP PO SCH ×2 (09:07→21:13)
[2021-04-21] MEDS: ADVANCED PROBIOTIC 1250 MG CAPSULE PO SCH (09:07)
[2021-04-21] MEDS: ASPIRIN 81 MG ECTAB PO SCH (09:08)
[2021-04-21] MEDS: DOCUSATE SODIUM 100 MG CAP PO SCH ×2 (09:08→16:11)
[2021-04-21] MEDS: MULTIVITAMIN TAB PO SCH (09:08)
[2021-04-21] MEDS: THIAMINE HCL 100 MG TAB PO SCH (09:08)
[2021-04-21] MEDS: PANTOprazole 40 MG TAB PO SCH (09:08)
[2021-04-21] MEDS: dilTIAZem HCL 30 MG TAB PO SCH ×2 (09:09→12:30)
[2021-04-21] MEDS: NYSTATIN POWDER 15GM BTL EXT SCH ×3 (09:09→21:09)
[2021-04-21] MEDS: SUCRALFATE 1 GM/10 ML UDC PO SCH ×4 (09:10→21:13)
[2021-04-21] MEDS: POLYETHYLENE (MIRALAX) 17 GM PACK PO SCH (09:11)
[2021-04-21] MEDS: DIGOXIN 0.125 MG TAB PO SCH (16:12)
[2021-04-21] MEDS: WARFARIN SOD 10 MG TAB PO SCH (16:13)
[2021-04-21] MEDS: dilTIAZem HCL 120 MG CAPCR PO SCH (16:29)
--- NOTE | 2021-04-21 17:53 | Cardiology Progress Note ---
Date of Service April 21, 2021 Assessment & Plan (1) Atrial fibrillation with rapid ventricular response: (2) Chronic heart failure with preserved ejection fraction: (3) Elevated troponin: (4) HTN (hypertension): (5) CAD (coronary artery disease): (6) Dyslipidemia: (7) Atypical chest pain: Plan: ASSESSMENT/PLAN: 1. Atrial fibrillation with rapid ventricular response: I think he has made significant progress with institution of diltiazem in addition to other rate control agents. His blood pressure is now normal and has allowed for increased medical therapy. I think he would be state to discharge home on his current medical regimen. We can continue monitoring his heart rates in adjusting his medicines on the outpatient basis. Continue apixaban. 2. Elevated troponin: Not related to an acute coronary syndrome 3. Atypical chest pain: None recently. 4. Chronic heart failure with preserved EF: He appears to be euvolemic currently. Diuresis earlier in his admission seem to result in hypotension. 5. CAD: Continue beta-blockade, warfarin and statin therapy. 6. Dyslipidemia: Can continue statin therapy. LDL is well controlled. Admission and Anticipated Discharge Date Admission Date: April 11, 2021 Subjective This evening the patient claims to be feeling better overall. He has performed limited ambulation because of poor vision. He has not ambulated independently. He states that he has some stomach discomfort after eating which is been a recurrent problem since admission. He states his breathing is currently good. He is not aware of palpitations. Physical Exam Physical Exam: Gen.: No acute distress. Alert and oriented. HEENT: Anicteric sclera. Neck: Thick neck. Cardiac: Irregularly irregular with normal rate. Normal S1-S2. 1/6 systolic ejection murmur. No rubs or gallops. Pulmonary: Normal respiratory effort. Lung ponce clear. Abdomen: Obese Extremities: No edema Psychiatric: Affect appears appropriate. Results & Data ([facility]) Vital Signs (Past 12 Hours) Vital Signs Temp Pulse Pulse Resp BP BP Pulse Ox 04/21/21 16:12 101 H 04/21/21 15:32 36.5 C 94 H 20 159/61 H 96 04/21/21 11:27 36.6 C 97 H 20 137/76 94 04/21/21 07:50 36.3 C L 90 20 115/54 L 91 Laboratory Results Abnormal Lab Results 04/21/21 04/21/21 08:06 08:06 PT 17.3 H INR 1.8 H Sodium 140 Potassium 4.4 Chloride 100 Carbon Dioxide 37 H Anion Gap 2.0 L BUN 24 H Creatinine 0.90 Est Cr Clr Drug Dosing 81.5 Est GFR ( Amer) 93.8 Est GFR (Non-Af Amer) 80.9 BUN/Creatinine Ratio 26.2 H Glucose 90 Calcium 9.5 PG Care Time/CCT Total # of Minutes Spent Total Time Spent with Patient: Total time spent is greater than 50% in coordin ation of care (as documented) at patient's floor/unit and/or counseling patient: Coding Level of Care Code 45738 Subseq Hosp Care Lvl 2 Diagnoses Atrial fibrillation with rapid ventricular response I48.91 Chronic heart failure with preserved ejection fraction I50.32 Elevated troponin R77.8 HTN (hypertension) I10 CAD (coronary artery disease) I25.10 Dyslipidemia E78.5 Atypical chest pain R07.89
[2021-04-21] MEDS ORDERED: FAMOTIDINE 20 MG TAB PO SCH (21:00)
[2021-04-21] MEDS: ATORVASTATIN 40 MG TAB PO SCH (21:13)
--- NOTE | 2021-04-21 22:45 | Hospitalist Progress Note ---
Date of Service April 21, 2021 Assessment & Plan (1) Epigastric abdominal pain: Plan: with post-prandial nausea. records from 2018 state he has had this in the past. resolution of constipation did not help abdominal complaints. Rx of UTI has not resolved his pain. adding carafate to his PPI has not helped nausea/discomfort. due to RUQ/high epigastric pain checked RUQ u/s - no gallstones, but GB wall wasquite thickened. HIDA scan today normal; no cystic duct obstruction. will add pepcid HS this may be severe GERD could have gastroparesis although he is not diabetic will send to [facility] post-d/c for consideration of EGD and other w/u (2) Rapid atrial fibrillation: Plan: Rates acceptable with cardizem 30mg qid and metoprolol 150mg BID and digoxin. d/c IR cardizem change to cardizem CD 120mg daily. DOACs too expensive thus coumadin initiated 04/14/21. INR 1.8. Cont coumadin 10mg. INR in am. Dig level acceptable. (3) HTN (hypertension): Plan: BPs controlled ESCOBAR was d/c to allow more room for beta lalito titration and other meds cont to keep the ESCOBAR off (4) Dyslipidemia: Plan: Cont lipitor (5) Chronic hypoxemic respiratory failure: Plan: Patient is on 2.5 L NC continuously. 2nd to OHS / MAX?? Sats stable. Cont O2. (6) Acute diastolic HF (heart failure): Plan: Resolved. remains compensated. Most recent CXR -- no pulm edema. decompensation was likely 2nd to rapid a.fib. resume lasix at d/c. (7) Elevated troponin: Plan: Likely myocardial demand ischemia in setting of #1. No ACS. Has had intermittent chest pains while here felt to be non-ischemic - troponins have been wnl. NO chest pain in several days. (8) Macrocytosis: Plan: Checked B12/folate - wnl. TSH wnl. Deserves outpatient f/u with heme/onc -- r/o early MDS, etc. (9) Fatigue: Plan: sed rate, crp - largely wnl. b12/folate/tsh wnl. has UTI - treating this. elevated psa - see below. MAX, anemia, other factors could be contributing. (10) History of DVT (deep vein thrombosis): Plan: heparin 7500 units TID until INR is >2 (11) CAD (coronary artery disease): Plan: known CAD cont asa cont statin cont BB see above re: troponins (12) UTI (urinary tract infection): Plan: 2nd klebsiella cont keflex 500mg BID day #6 of IV/PO abx needs MELLY to r/o prostatitis (13) Constipation: Plan: resolved cont bowel regimen (14) History of prostate cancer: Plan: at his request checked PSA elevated at 21 I do not have a prior level this could be from prostatitis but can't rule out prostate ca recurrence will perform MELLY before discharge likely needs urology f/u post-d/c (15) Elevated PSA: Plan: as above Plan: cont PT/ OT [facility] auth pending left message for his on [employer] multiple times this week including this evening Admission and Anticipated Discharge Date Admission Date: April 11, 2021 Subjective overnight - tele again with improved rates vs earlier this week; many rates are 90s at rest only complaint is mild nausea post-prandially of note - a review of records shows he had these complaints in 2018 underwent u/s, etc at that time has never had EGD despite the nausea he has been eating - 75% of meals consumed per the nursing flowsheets Review of Systems Review of Systems: gen - mild fatigue only CV - no chest pain today; no orthopnea pulm - no cough GI - while I was in his room he had belching while trying to eat Physical Exam Physical Exam: gen - NAD, obese mouth - MMM, no lesions neck - no JVD heart - regular rate, irregularly irregular, s1 s2, no murmur lungs - CTA b/l, no rales or wheeze abd - soft, NT, ND, BS+, no HSM ext - <1+ edema b/l, pulses 2+ b/l psych - a/o x3 Results & Data Results & Data ([facility]) Vital Signs (Past 12 Hours) Vital Signs Temp Pulse Pulse Pulse Resp BP Pulse Ox 04/21/21 20:04 36.3 C L 102 H 18 131/84 96 04/21/21 16:12 101 H 04/21/21 15:32 36.5 C 94 H 20 159/61 H 96 04/21/21 11:27 36.6 C 97 H 20 137/76 94 Laboratory Results Laboratory Results - last 24 hr 04/21/21 04/21/21 08:06 08:06 PT 17.3 H INR 1.8 H Sodium 140 Potassium 4.4 Chloride 100 Carbon Dioxide 37 H Anion Gap 2.0 L BUN 24 H Creatinine 0.90 Est Cr Clr Drug Dosing 81.5 Est GFR ( Amer) 93.8 Est GFR (Non-Af Amer) 80.9 BUN/Creatinine Ratio 26.2 H Glucose 90 Calcium 9.5 PG Care Time/CCT Total # of Minutes Spent Total Time Spent with Patient: Total time spent is greater than 50% in coordination of care (as documented) at patient's floor/unit and/or counseling patient: Coding Level of Care Code 50235 Subseq Hosp Care Lvl 3 Diagnoses Epigastric abdominal pain R10.13 Rapid atrial fibrillation I48.91 HTN (hypertension) I10 Dyslipidemia E78.5 Chronic hypoxemic respiratory failure J96.11 Acute diastolic HF (heart failure) I50.31 Elevated troponin R77.8 Macrocytosis D75.89 Fatigue R53.83 History of DVT (deep vein thrombosis) Z86.718 CAD (coronary artery disease) I25.10 UTI (urinary tract infection) N39.0 Constipation K59.00 History of prostate cancer Z85.46 Elevated PSA R97.20
[2021-04-22] MEDS: HEPARIN SOD 5,000 UNIT/0.5 ML VIAL SQ SCH (06:07)
[2021-04-22 06:37] LABS: Hematocrit (blood only) 33.7 % (42-52); Hemoglobin 10.2 g/dL (14.0-18.0); Mean Corpuscular Hemoglobin 33.9 pg (25-34); Mean Corpuscular Hgb Conc 30.3 g/dL (32-36); Mean Platelet Volume 10.3 fL (7.4-10.4); Platelet Count 239 K/uL (130-400); RDW Coefficient of Variation 14.4 % (11.5-14.5); RDW Standard Deviation 58.3 fL (36.4-46.3); Red Blood Count 3.01 M/uL (4.7-6.1); White Blood Count 5.87 K/uL (4.8-10.8)
[2021-04-22 06:47] LABS: INR 2.1 (0.9-1.1); Prothrombin Time 19.8 Seconds (9.0-12.0)
[2021-04-22 07:12] LABS: Albumin Level 2.6 gm/dl (3.4-5.0); Bilirubin Direct 0.1 mg/dl (0-0.2); Creatinine Clr Calc Pharmacy 88.3 ml/min; Est GFR (Non-African American) 83.7 ml/min
[2021-04-22 07:15] LABS: Bilirubin,Total 0.3 mg/dl (0.2-1); Total Protein 5.6 gm/dl (6.4-8.2)
[2021-04-22] MEDS: PANTOprazole 40 MG TAB PO SCH (08:56)
[2021-04-22] MEDS: DOCUSATE SODIUM 100 MG CAP PO SCH (08:56)
[2021-04-22] MEDS: cephALEXin 500 MG CAP PO SCH (08:56)
[2021-04-22] MEDS: SENNA 8.6 MG TAB PO SCH (08:56)
[2021-04-22] MEDS: METOPROLOL TARTRATE 50 MG TAB PO SCH (08:57)
[2021-04-22] MEDS: THIAMINE HCL 100 MG TAB PO SCH (08:58)
[2021-04-22] MEDS: ASPIRIN 81 MG ECTAB PO SCH (08:58)
[2021-04-22] MEDS: dilTIAZem HCL 120 MG CAPCR PO SCH (08:58)
[2021-04-22] MEDS: ADVANCED PROBIOTIC 1250 MG CAPSULE PO SCH (08:58)
[2021-04-22] MEDS: MULTIVITAMIN TAB PO SCH (08:58)
[2021-04-22] MEDS: SUCRALFATE 1 GM/10 ML UDC PO SCH ×2 (08:59→12:23)
[2021-04-22] MEDS: NYSTATIN POWDER 15GM BTL EXT SCH ×2 (08:59→12:24)
[2021-04-22] MEDS: POLYETHYLENE (MIRALAX) 17 GM PACK PO SCH (09:00)
[2021-04-22] MEDS: CALCIUM CARBONATE 1250MG TAB PO SCH (12:23)
--- NOTE | 2021-04-22 14:15 | Discharge Summary ---
Date of Service April 22, 2021 Admission HPI Per Admitting Provider This is a 80-year-old male with past my history of hypertension, hyperlipidemia, MAX, chronic hypoxic respiratory failure on 2.5 L nasal cannula chronically that presents today complaining worsening shortness of breath. Patient is a decent historian. Patient tells me he started to have symptoms on Saturday morning, 04/08. Patient woke up and was feeling worsening shortness of breath along with palpitations. He was extremely weak at that time. Unfortunately, patient did not seek medical attention at that time as he is caring for his sick which is recently came out of the hospital herself. He tells me that the feeling was persistent after Saturday and Saturday but earlier this morning he was unable to tolerate any longer. At that point, he presented to the emergency room for further evaluation. In the emergency room, patient was found to be in rapid atrial fibrillation with a rate around 150. He was given bolus Cardizem dosing that started on a drip. At the time my evaluation, he remained in atrial fibrillation with a rate around 120. Patient tells me he has no previous history of this. He does appear to be mildly uncomfortable but does tell me he feels improved from his presentation. On further questioning. He does note that he has been having some worsening lower extremity edema although he tends to always be swollen. Discharge Data Allergies Allergy/AdvReac Type Severity Reaction Status Date / Time acetazolamide Allergy Intermediate swelling Verified 04/11/21 14:47 [From Diamox Sequels] Consultations 04/11/21 12:06 ED Decision to Admit Stat 04/11/21 14:30 Consult Cardiology Routine Ordered Studies 04/19/21 13:30 US gallbladder Routine Hospital Course (1) Epigastric abdominal pain: with post-prandial nausea. records from 2018 state he has had this in the past. resolution of constipation did not help abdominal complaints. Rx of UTI has not resolved his pain. adding carafate to his PPI has not helped nausea/discomfort. due to RUQ/high epigastric pain checked RUQ u/s - no gallstones, but GB wall wasquite thickened. HIDA scan today normal; no cystic duct obstruction. will add pepcid HS this may be severe GERD could have gastroparesis although he is not diabetic will send to [facility] GI post-d/c for consideration of EGD and other w/u (2) Rapid atrial fibrillation: Rates acceptable with cardizem 30mg qid and metoprolol 150mg BID and digoxin. d/c IR cardizem change to cardizem CD 120mg daily. DOACs too expensive thus coumadin initiated 04/14/21. INR 1.8. Cont coumadin 10mg. INR in am. Dig level acceptable. (3) HTN (hypertension): BPs controlled ESCOBAR was d/c to allow more room for beta lalito titration and other meds cont to keep the ESCOBAR off (4) Dyslipidemia: Cont lipitor (5) Chronic hypoxemic respiratory failure: Patient is on 2.5 L NC continuously. 2nd to OHS / MAX?? Sats stable. Cont O2. (6) Acute diastolic HF (heart failure): Resolved. remains compensated. Most recent CXR -- no pulm edema. decompensation was likely 2nd to rapid a.fib. resume lasix at d/c. (7) Elevated troponin: Likely myocardial demand ischemia in setting of #1. No ACS. Has had intermittent chest pains while here felt to be non-ischemic - troponins have been wnl. NO chest pain in several days. (8) Macrocytosis: Checked B12/folate - wnl. TSH wnl. Deserves outpatient f/u with heme/onc -- r/o early MDS, etc. (9) Fatigue: sed rate, crp - largely wnl. b12/folate/tsh wnl. has UTI - treating this. elevated psa - see below. MAX, anemia, other factors could be contributing. (10) History of DVT (deep vein thrombosis): heparin 7500 units TID until INR is >2 (11) CAD (coronary artery disease): known CAD cont asa cont statin cont BB see above re: troponins (12) UTI (urinary tract infection): 2nd klebsiella cont keflex 500mg BID day #6 of IV/PO abx needs MELLY to r/o prostatitis (13) Constipation: resolved cont bowel regimen (14) History of prostate cancer: at his request checked PSA elevated at 21 I do not have a prior level this could be from prostatitis but can't rule out prostate ca recurrence will perform MELLY before discharge likely needs urology f/u post-d/c (15) Elevated PSA: as above cont PT/ OT [facility] auth pending left message for his on voicemail multiple times this week including this evening Discharge Plan Discharge Items Patient Disposition: Transfer Inpatient Rehab Fac Reason For Visit: RAPID A. FIB Discharge Diagnosis: 1. rapid a.fib - marked improvement with use of metoprolol, digoxin, and cardizem CD 2. institution of coumadin during this stay for #1 above; discharge INR 2.1 3. UTI with probable prostatitis 4. elevated PSA - 20; could be from prostatitis but has history of prostate cancer years ago; [facility] urology follow-up needed 5. GERD 6. chronic post-prandial nausea and dyspepsia - cause uncertain; [facility] GI follow-up advised 7. chronic hypoxic respiratory failure on home oxygen 2.5 L Activity: Resume your previous activity Non-emergency contact: Primary Care Provider, Sales Floor Associate and Ball Thread Machine Tender Call non-emergency contact if: you have any medication questions, your symptoms worsen, your pain is unusual for you, your pain is concerning for you and you have a fever Follow-up/Referrals: Andie Peace CRNP [Primary Care Provider] - (see Ms Nata within 1 week of discharge from [facility] ) Laron Engel MD [Physician] - (3-4 weeks; f/u of elevated PSA, probable prostatitis, prostate nodule; prior h/o prostate cancer. ) Danielito Li MD [Physician] - (first available appointment - diagnosis - worsening post-prandial nausea) Hannah Ackerman PA-C [Physician Returned Goods Inspector] - (1 week for a.fib and CHF ) Diet: Heart Healthy Fluids: 2000ml (8 cups) Addtl Attending Provider Instructions: Mr Osei was hospitalized for the problems listed above in #1. A fib was managed by [facility] Cardiology. A fib now controlled with digoxin, metoprolol, and cardizem CD. Now on coumadin for the a.fib with discharge INR of 2.1. Cardiology f/u needed. Course complicated by UTI with probable prostatitis. Urology f/u needed. Also with chronic nausea following meals (present for months-years). GI f/u needed. Recommendations - 1. DAILY INR starting 04/23/21 as patient is new to coumadin and need to ensure current dosing regimen is appropriate. INR Goal 2-3. 2. BMP, Mag in 3-4 days for stability. 3. Follow-up appointments as above. 4. Daily weights on standing scale; notify provider if any weight gain of more than 2-3 pounds over 1-2 days. 5. NC O2 -- 2.5 liters continuously. Addtl Rechecker Provider Instructions: Call 911 and go to the Emergency Room if: * You have tightness or pain in your chest that does not go away with rest or Nitroglycerin * You are very short of breath even with rest Call your doctor if any of the following symptoms or problems start or get worse: * Shortness of breath or difficulty breathing * Wake up at night short of breath * Chest pain * Cough * Swelling of your hands, fee, or legs * More fatigued or tired with your normal activity * Palpitations - sudden fast heart beats WEIGHT * Weigh yourself every morning after using the bathroom. * Use the same scale. * Wear the same amount of clothing. * Write your weight down on your chart. * Call your doctor if you gain more than 2-3 pounds in 1-2 days. MEDICATIONS * Use this discharge instruction sheet for instructions. * Take your medications at the time your doctor ordered. * Do not skip a dose of your medicines. * If you miss a dose of medicine, take as soon as possible, but DO NOT DOUBLE A DOSE. * Read your medicine information when you get home. * Know all of the side effects of your medicine. * Call your doctor's office if you have any side effects. * Be sure all of your doctors know what medicine and herbs you take (including cold, flu, and herbal medicine). * Pain Medicine: If you do not get relief from your pain, please call your doctor for help. Take the following with you to your follow-up doctor appointments: * Weight Chart * Medication List * List of questions Do not drink excessive alcohol, beer or wine. Pending Studies at Discharge: No Stand-Alone Forms: My [facility] I-lighting Skilled Items Patient informed of condition?: Yes DNR: No Discharge Level of Care: Acute rehab Communicable Disease: No Discharge Prognosis: Stable Lines: None Urinary Catheter: No Medications and DC Order Prescriptions: New cephalexin 500 mg Capsule 500 mg PO BID 21 Days Qty: 42 RF: 0 atorvastatin 40 mg Tablet 40 mg PO HS Qty: 30 RF: 5 digoxin [Digitek] 125 mcg (0.125 mg) Tablet 125 mcg PO DAILY@1600 Qty: 30 RF: 5 diltiazem HCl 120 mg Capsule,Extended Release 24hr 120 mg PO QAM Qty: 30 RF: 5 acetaminophen 325 mg Tablet 650 mg PO Q4H PRN (Reason: pain) Qty: 30 RF: 0 pantoprazole 40 mg Tablet,Delayed Release (Dr/Ec) 40 mg PO BID Qty: 60 RF: 2 Advanced Probiotic 625 mg (10 billion cell) Capsule 2 cap PO DAILY 21 Days Qty: 42 RF: 0 polyethylene glycol 3350 [Miralax] 17 gram Powder In Packet 17 g PO DAILY Qty: 30 RF: 0 sennosides [Senokot] 8.6 mg Tablet 17.2 mg PO QAM Qty: 60 RF: 0 nystatin [Nystop] 100,000 unit/gram Powder 1 applic EXT TID Qty: 30 RF: 1 warfarin 7.5 mg tablet 7.5 mg PO .Mon,Wed,Fri,Sat,Sun Qty: 30 RF: 0 warfarin 10 mg tablet 10 mg PO ./ Qty: 30 RF: 0 tamsulosin [Flomax] 0.4 mg capsule 0.4 mg PO DAILY Qty: 30 RF: 2 ondansetron 4 mg tablet,disintegrating 4 mg PO Q6H PRN (Reason: nausea and vomiting) Qty: 10 RF: 0 Continued aspirin [Ecotrin Low Strength] 81 mg tablet,delayed release (DR/EC) 81 mg PO QAM Qty: 30 RF: 0 (DME) A.I.R.S Nebulizer Replacement Kit See Rx Instructions .ROUTE .MEDSUPPLY Qty: 1 RF: 0 (DME) Aeroneb Go Nebulizer Misc See Rx Instructions .ROUTE .MEDSUPPLY Qty: 1 RF: 0 multivitamin [Daily Multi-Vitamin] tablet 1 tab PO QAM RF: 0 potassium chloride [Klor-Con M20] 20 mEq tablet,ER particles/crystals 20 meq PO BID RF: 0 furosemide [Lasix] 80 mg tablet 80 mg PO QAM RF: 0 calcium carbonate-vitamin D3 [Calcium 500 + D] 500 mg(1,250mg) -400 unit tablet 500 tab PO BID RF: 0 Changed ipratropium-albuterol 0.5 mg-3 mg(2.5 mg base)/3 mL solution for nebulization 3 ml INHALATION Q4H PRN (Reason: shortness of breath) Qty: 90 RF: 4 metoprolol tartrate [Lopressor] 50 mg tablet 150 mg PO BID Qty: 0 RF: 0 Discontinued docusate sodium [Colace] 100 mg capsule 100 mg PO BIDM Qty: 30 RF: 0 terazosin 5 mg capsule 5 mg PO HS RF: 0 clopidogrel [Plavix] 75 mg tablet 75 mg PO QAM RF: 0 simvastatin [Zocor] 40 mg tablet 40 mg PO HS RF: 0 lisinopril [Zestril] 10 mg tablet 10 mg PO QAM RF: 0 omeprazole 20 mg capsule,delayed release(DR/EC) 20 mg PO QAM RF: 0 Discharge Orders: Discharge Order (Routine); Ordered 04/22/21 Ordered By: Nick Mar Admission Data Admit Date/Time: 04/11/21 13:13 Attending Provider: Nick Mar Admit Provider: Vimal Nieto Primary Care Provider: Andie Peace Other Providers: Vimal Nieto ; Lionel De La Cruz ; [facility] Coding Diagnoses Epigastric abdominal pain R10.13 Rapid atrial fibrillation I48.91 HTN (hypertension) I10 Dyslipidemia E78.5 Chronic hypoxemic respiratory failure J96.11 Acute diastolic HF (heart failure) I50.31 Elevated troponin R77.8 Macrocytosis D75.89 Fatigue R53.83 History of DVT (deep vein thrombosis) Z86.718 CAD (coronary artery disease) I25.10 UTI (urinary tract infection) N39.0 Constipation K59.00 History of prostate cancer Z85.46 Elevated PSA R97.20
== END 2021-04-22 15:25 | DRG 308 ==
LOC: ED 10:16 → 2S 13:13 → SUATTDRO 13:13 → 2S 13:53

== ENCOUNTER 2021-05-18 15:02 | Inpatient (IN) ==
[2021-05-18] MEDS ORDERED: LORazepam 1 MG/2 ML VIAL IV STA (15:24)
[2021-05-18 15:43] LABS: Basophils # (auto) 0.01 K/uL (0-0.2); Basophils % (auto) 0.1 %; Eosinophils # (auto) 0.11 K/uL (0-0.5); Eosinophils % (auto) 1.3 %; Hematocrit (blood only) 36.9 % (42-52); Hemoglobin 11.5 g/dL (14.0-18.0); Immature Granulocytes # (auto) 0.02 K/uL (0.00-0.02); Immature Granulocytes % (auto) 0.2 %; Lymphocytes # (auto) 1.63 K/uL (1.2-3.4); Mean Corpuscular Hemoglobin 32.4 pg (25-34); Mean Corpuscular Hgb Conc 31.2 g/dL (32-36); Mean Corpuscular Volume 103.9 fL (80-100); Mean Platelet Volume 11.1 fL (7.4-10.4); Neutrophils # (auto) 6.21 K/uL (1.4-6.5); Neutrophils % (auto) 72.4 %; Platelet Count 322 K/uL (130-400); RDW Coefficient of Variation 14.1 % (11.5-14.5); Red Blood Count 3.55 M/uL (4.7-6.1); White Blood Count 8.58 K/uL (4.8-10.8)
--- NOTE | 2021-05-18 15:51 | Emergency Department Note ---
History of Present Illness General Chief complaint: Chest Pain Stated complaint: CHEST PAIN Time Seen by Provider: 05/18/21 15:06 Source: patient Mode of arrival: ambulatory Limitations: no limitations History of Present Illness Provider complaint: chest pain, sob Onset (ago): week(s) 2 Location: chest Radiation: non-radiation Exacerbated By: + movement Associated symptoms: + chest pain, + cough, + malaise and + shortness of breath; no fever/chills, no headaches, no nausea/vomiting or no syncope This is a 80-year-old male presents emergency department due to concern for chest pain and shortness of breath. Patient states he has had increased chest discomfort and shortness of breath over the last several weeks now since he was last admitted to the hospital. Patient states he does wear oxygen daily, 2 L/min due to underlying history of COPD due to prior tobacco abuse. Patient states that he had been in contact with his family doctor, due to his worsening symptoms, his family doctor instructed his to contact 911. On arrival here patient was hypoxic on his usual 2 L/min so he was increased to 4. Patient states he was given aspirin and nitro prehospital and pain resolved. Patient states his medications were changed during his last admission as he was also started on Coumadin. Patient denies any fevers although does admit to a worsening cough recently including intermittent thick yellow sputum. Pt seen during a time of high acuity and national emergency pandemic while wearing PPE. Home Medications Medication Instructions Recorded Confirmed Type aspirin 81 mg tablet,delayed 81 mg PO QAM #30 tab 01/12/19 05/18/21 Rx release (Ecotrin Low Strength) calcium carbonate 500 mg (1,250 500 tab PO BID 04/11/21 05/18/21 History mg)-vitamin D3 400 unit tablet (Calcium 500 + D) multivitamin (Daily Multi-Vitamin) 1 tab PO QAM 04/11/21 05/18/21 History acetaminophen 325 mg tablet 650 mg PO Q4H PRN #30 tab 04/22/21 05/18/21 Rx atorvastatin 40 mg tablet 40 mg PO HS #30 tab 04/22/21 05/18/21 Rx digoxin 125 mcg (0.125 mg) tablet 125 mcg PO DAILY@1600 #30 tab 04/22/21 1 Rx (Digitek) diltiazem HCl 120 mg 120 mg PO QAM #30 cap 04/22/21 05/18/21 Rx capsule,extended release 24 hr ipratropium 0.5 mg-albuterol 3 mg 3 ml INHALATION Q4H PRN #90 ml 04/22/21 Rx (2.5 mg base)/3 mL nebulization soln metoprolol tartrate 50 mg tablet 150 mg PO BID #0 tab 04/22/21 05/18/21 Rx (Lopressor) nystatin 100,000 unit/gram topical 1 applic EXT TID #30 g 04/22/21 05/18/21 Rx powder (Nystop) pantoprazole 40 mg tablet,delayed 40 mg PO BID #60 tab 04/22/21 05/18/21 Rx release sennosides 8.6 mg tablet (Senokot) 17.2 mg PO QAM #60 tab 04/22/21 05/18/21 Rx tamsulosin 0.4 mg capsule (Flomax) 0.4 mg PO DAILY #30 cap 04/22/21 05/18/21 Rx furosemide 80 mg tablet (Lasix) 80 mg PO QAM #30 tab 05/10/21 05/18/21 Rx potassium chloride 20 mEq 20 meq PO BID #60 tab 05/10/21 05/18/21 Rx tablet,extended release(part/cryst) (Klor-Con M) cephalexin 500 mg capsule 500 mg PO BID 05/18/21 05/18/21 History warfarin 10 mg tablet 7.5 - 10 mg PO UD 05/18/21 05/18/21 History Allergies Allergy/AdvReac Type Severity Reaction Status Date / Time acetazolamide Allergy Intermediate swelling Verified 05/18/21 19:15 [From Diamox Sequels] Past Med/Surg History Medical History (HFpEF) heart failure with preserved ejection fraction Aortic stenosis, mild CAD (coronary artery disease) Cancer of prostate Chronic hypoxemic respiratory failure COPD (chronic obstructive pulmonary disease) Depression DVT (deep venous thrombosis) Dyslipidemia Heart disease HTN (hypertension) Myocardial infarct Sleep apnea TIA (transient ischemic attack) Surgical History History of appendectomy Hx of tonsillectomy Hx of vasectomy Family History Family/Other Prostate cancer Myocardial infarction Denies family history of Ovarian cancer Breast cancer Colorectal cancer Social History Smoking Status: Never smoker Tobacco Type: Cigarettes Second Hand Exposure: No; Hx Alcohol Use: Yes Alcohol type: beer Alcohol Intake Frequency: 2-4 x/Month Hx Substance Use: No Preferred Language: Greenlandic Communication Ability: Effective Crack Off Person Required: No Beliefs That Will Affect Care: None marital status: Current Living Situation: Spouse current occupational status: retired Feels Safe at Home: Yes caffeine: Yes Dental Care, Regularly: No Physical Activity Frequency: Does not Exercise Seatbelt Use: always Sunscreen Use: No Assistive Devices: Oxygen - Continuous and Walker Review of Systems A total of 10 systems reviewed and were otherwise negative All systems reviewed & are unremarkable except as noted in HPI & below Physical Exam Vital Signs Vital Signs - 24 hr 05/18/21 15:04 05/18/21 15:16 05/18/21 15:52 Temperature 36.5 C Temperature Source Oral Pulse Rate 112 H 111 H Pulse Rate from SpO2 Sensor 81 Respiratory Rate 24 20 Blood Pressure 132/56 L Blood Pressure Mean 81 Pulse Oximetry 88 L 100 99 Oxygen Delivery Method Nasal Cannula Nasal Cannula Oxygen Flow Rate 2 4 Sepsis Recent Fever Within 48 Hours No Sepsis New/Unexplained Change in Mental Status No Sepsis Action Taken by Nursing No Action Required 05/18/21 16:00 05/18/21 16:30 05/18/21 17:00 Temperature Temperature Source Pulse Rate 105 H Pulse Rate from SpO2 Sensor 86 82 73 Respiratory Rate 22 Blood Pressure Blood Pressure Mean Pulse Oximetry 100 95 100 Oxygen Delivery Method Oxygen Flow Rate Sepsis Recent Fever Within 48 Hours Sepsis New/Unexplained Change in Mental Status Sepsis Action Taken by Nursing 05/18/21 17:30 05/18/21 18:00 05/18/21 18:30 Temperature Temperature Source Pulse Rate 88 106 H Pulse Rate from SpO2 Sensor 85 83 Respiratory Rate 24 24 Blood Pressure 143/85 H Blood Pressure Mean 104 Pulse Oximetry 96 100 Oxygen Delivery Method Oxygen Flow Rate Sepsis Recent Fever Within 48 Hours Sepsis New/Unexplained Change in Mental Status Sepsis Action Taken by Nursing GENERAL: alert, unwell appearing, well nourished, no distress, non-toxic EYE EXAM: normal conjunctiva, PERRL and EOM's grossly intact OROPHARYNX: no exudate, no erythema, lips, buccal mucosa, and tongue normal and mucous membranes are moist NECK: supple, no nuchal rigidity, no adenopathy, non-tender LUNGS: Clear to auscultation. Normal chest wall mechanics, no w/r/r HEART: no murmurs, S1 normal and S2 normal ABDOMEN: abdomen soft, non-tender, normo-active bowel sounds, no masses, no rebound or guarding. BACK: Back is symmetrical on inspection and there is no deformity, no midline tenderness, no CVA tenderness. SKIN: no rashes and no bruising UPPER EXTREMITIES: upper extremities are grossly normal. FROM, nml pulses b/l. LOWER EXTREMITIES: 2+ b/l pitting edema. FROM, nml pulses b/l. NEURO EXAM: Normal sensorium, cranial nerves II-XII grossly intact, normal speech, no gross weakness of arms, no gross weakness of legs. Gross sensation intact. Course Administered Medications Albuterol (Albut/Ipratrop 3mg/0.5mg Neb 3 Ml Vial) 3 ml INH Q4H PRN PRN Reason: shortness of breath Stop: 06/17/21 23:35 Last Admin: 05/19/21 04:57 Dose: 3 ml Documented by: [id number] Aspirin (Aspirin 81 Mg Ectab) 81 mg PO QAM [facility] Stop: 06/18/21 08:59 Last Admin: 05/19/21 08:25 Dose: 81 mg Documented by: [id number] Atorvastatin Calcium (Atorvastatin 40 Mg Tab) 40 mg PO HS [facility] Stop: 06/17/21 23:35 Last Admin: 05/19/21 00:14 Dose: 40 mg Documented by: [id number] Digoxin (Digoxin 0.125 Mg Tab) 0.125 mg PO DAILY@1600 [facility] Stop: 06/18/21 15:59 Last Admin: 05/19/21 16:36 Dose: 0.125 mg Documented by: [id number] Diltiazem HCl (Diltiazem Hcl 120 Mg Capcr) 120 mg PO QAM [facility] Stop: 06/18/21 08:59 Last Admin: 05/19/21 08:25 Dose: 120 mg Documented by: [id number] Enoxaparin Sodium (Enoxaparin Inj 120 Mg/0.8 Ml Syr) 111 mg SQ Q12H [facility]ERT[facility] Stop: 06/18/21 07:59 Last Admin: 05/19/21 08:26 Dose: 111 mg Documented by: [id number] Guaifenesin (Guaifenesin 600 Mg Tabcr) 1,200 mg PO Q12 [facility] AL[facility]ERTO Stop: 06/17/21 23:35 Last Admin: 05/19/21 08:25 Dose: 1,200 mg Documented by: [id number] Admin: 05/19/21 00:13 Dose: 1,200 mg Documented by: [id number] Azithromycin 500 mg/ Dextrose 255 mls @ 125 mls/hr IV Q24H [facility] Stop: 05/26/21 00:59 Last Infusion: 05/19/21 03:23 Dose: 0 mls/hr Documented by: [id number] Admin: 05/19/21 01:16 Dose: 125 mls/hr Documented by: [id number] Ceftriaxone Sodium 2,000 mg/ (Dextrose) 70 mls @ 100 mls/hr IV Q24H [facility]; Protocol Stop: 05/26/21 00:00 Last Infusion: 05/19/21 01:20 Dose: 0 mls/hr Documented by: [id number] Admin: 05/19/21 00:14 Dose: 100 mls/hr Documented by: [id number] Metoprolol Tartrate (Metoprolol Tartrate 50 Mg Tab) 150 mg PO BID [facility] Stop: 06/17/21 23:35 Last Admin: 05/19/21 08:25 Dose: 150 mg Documented by: [id number] Admin: 05/19/21 00:12 Dose: 150 mg Documented by: [id number] Multivitamins (Multivitamin Tab) 1 tab PO QAM [facility] ALBERTO Stop: 06/18/21 08:59 Last Admin: 05/19/21 08:24 Dose: 1 tab Documented by: [id number] Multivitamins/Minerals (Calcium 600mg + Vit D 400 Iu Tab) 1 tab PO BID [facility] Stop: 06/17/21 23:44 Last Admin: 05/19/21 08:25 Dose: 1 tab Documented by: [id number] Admin: 05/19/21 00:11 Dose: 1 tab Documented by: [id number] Pantoprazole Sodium (Pantoprazole 40 Mg Tab) 40 mg PO BID [facility] Stop: 06/17/21 23:35 Last Admin: 05/19/21 08:25 Dose: 40 mg Documented by: [id number] Admin: 05/19/21 00:12 Dose: 40 mg Documented by: [id number] Polyethylene Glycol (Polyethylene (Miralax) 17 Gm Pack) 17 gm PO DAILY [facility] Stop: 06/18/21 08:59 Last Admin: 05/19/21 08:26 Dose: Not Given Documented by: [id number] Sennosides (Senna 8.6 Mg Tab) 17.2 mg PO QAM [facility] Stop: 06/18/21 08:59 Last Admin: 05/19/21 08:26 Dose: Not Given Documented by: [id number] Tamsulosin HCl (Tamsulosin Hcl 0.4 Mg Cap) 0.4 mg PO DAILY [facility] Stop: 06/18/21 08:59 Last Admin: 05/19/21 08:24 Dose: 0.4 mg Documented by: [id number] Warfarin Sodium (Warfarin Sod 10 Mg Tab) 10 mg PO TuTh@1600 [facility] Stop: 06/17/21 23:44 Last Admin: 05/19/21 00:10 Dose: 10 mg Documented by: [id number] Warfarin Sodium (Warfarin Sod 2.5 Mg Tab) 7.5 mg PO SuFrSa@1600 [facility] Stop: 05/21/21 16:01 Last Admin: 05/19/21 16:56 Dose: 7.5 mg Documented by: [id number] Discontinued Medications Doxycycline Hyclate (Doxycycline Hyclate 100 Mg Cap) 100 mg PO NOW STA Stop: 05/18/21 17:25 Last Admin: 05/18/21 17:43 Dose: 100 mg Documented by: [id number] Enoxaparin Sodium (Enoxaparin 1.5 Mg/Kg) 1 mg SQ NOW STA Stop: 05/18/21 18:47 Last Admin: 05/18/21 19:50 Dose: Not Given Documented by: [id number] Enoxaparin Sodium (Enoxaparin Inj 120 Mg/0.8 Ml Syr) 111 mg SQ NOW ONE Stop: 05/18/21 19:16 Last Admin: 05/18/21 19:48 Dose: 111 mg Documented by: [id number] Lorazepam (Ativan) 1 mg in 2 mls @ 2 mls/min IV NOW STA Stop: 05/18/21 15:25 Last Admin: 05/18/21 15:59 Dose: Not Given Documented by: [id number] Methylprednisolone 40 mg/ (Syringe) 0.64 mls @ 1.5 mls/min IV Q8H [facility] AL[facility]ERTO Stop: 06/18/21 03:59 Last Admin: 05/19/21 14:13 Dose: 1.5 mls/min Documented by: [id number] Admin: 05/19/21 03:25 Dose: 1.5 mls/min Documented by: [id number] Ioversol (Optiray 320 125ml) 117 ml IV ONCE ONE Stop: 05/18/21 18:17 Last Admin: 05/18/21 18:17 Dose: 117 ml Documented by: [id number] Methylprednisolone (Methylprednisolone 125 Mg/2 Ml Vial) 60 mg IV NOW STA Stop: 05/18/21 18:47 Last Admin: 05/18/21 19:47 Dose: 60 mg Documented by: [id number] Potassium Chloride (Potassium Chloride Crtab 20 Meq Tabcr) 20 meq PO BID17 [facility] AL[facility]ERTO Stop: 06/17/21 23:35 Last Admin: 05/19/21 16:56 Dose: 20 meq Documented by: [id number] Admin: 05/19/21 08:26 Dose: Not Given Documented by: [id number] Admin: 05/19/21 00:11 Dose: 20 meq Documented by: [id number] Medical Decision Making Differential Diagnosis Differential diagnoses includes but is not limited to acute coronary syndrome, myocardial infarction, pericarditis, pulmonary embolus, aortic dissection, pneumonia, pneumothorax, musculoskeletal, shingles, esophageal. Medical Records Attestation: I reviewed the patient's medical records. Home Medications Current Medication List: was personally reviewed by me Laboratory Data Attestation: I reviewed the patient's lab results. Result diagrams: 05/19/21 07:21 05/19/21 07:21 Lab Results 05/18/21 05/18/21 05/18/21 Range/Units 15:18 15:18 15:18 WBC 8.58 (4.8-10.8) K/uL RBC 3.55 L (4.7-6.1) M/uL Hgb 11.5 L (14.0-18.0) g/dL Hct 36.9 L (42-52) % MCV 103.9 H (80-100) fL MCH 32.4 (25-34) pg MCHC 31.2 L (32-36) g/dL RDW Std Deviation 54.0 H (36.4-46.3) fL RDW Coeff of Luciano 14.1 (11.5-14.5) % Plt Count 322 (130-400) K/uL MPV 11.1 H (7.4-10.4) fL Immature Gran % (Auto) 0.2 % Neut % (Auto) 72.4 % Lymph % (Auto) 19.0 % [place] % (Auto) 7.0 % Eos % (Auto) 1.3 % Baso % (Auto) 0.1 % Neut # (Auto) 6.21 (1.4-6.5) K/uL Lymph # (Auto) 1.63 (1.2-3.4) K/uL [place] # (Auto) 0.60 H (0.11-0.59) K/uL Eos # (Auto) 0.11 (0-0.5) K/uL Baso # (Auto) 0.01 (0-0.2) K/uL Immature Gran # (Auto) 0.02 (0.00-0.02) K/uL PT 13.2 H (9.0-12.0) Seconds INR 1.3 H (0.9-1.1) Sodium 137 (136-145) mmol/L Potassium 4.9 (3.5-5.1) mmol/L Chloride 98 (98-107) mmol/L Carbon Dioxide 35 H (21-32) mmol/L Anion Gap 4.0 (3-11) BUN 13 (7-18) mg/dl Creatinine 0.86 (0.6-1.4) mg/dl Est Cr Clr Drug Dosing 97.0 ml/min Est GFR ( Amer) 95.6 ml/min Est GFR (Non-Af Amer) 82.5 ml/min BUN/Creatinine Ratio 14.6 (10-20) Glucose 87 (70-99) mg/dl Calcium 9.3 (8.5-10.1) mg/dl Magnesium 2.5 H (1.8-2.4) mg/dl Total Bilirubin 0.4 (0.2-1) mg/dl AST 19 (15-37) U/L ALT 28 (12-78) U/L Alkaline Phosphatase 81 (45-117) U/L Troponin I 0.015 (0-0.045) ng/ml NT-Pro-B Natriuret Pep 5933 H (0-1800) pg/ml Total Protein 6.1 L (6.4-8.2) gm/dl Albumin 2.9 L (3.4-5.0) gm/dl Globulin 3.2 (2.5-4.0) gm/dl Albumin/Globulin Ratio 0.9 (0.9-2) Digoxin (0.8-2.0) ng/ml COVID-19 Eval Order SARS-CoV-2 (PCR) (Negative) 05/18/21 05/18/21 05/18/21 Range/Units 15:18 15:18 15:18 WBC (4.8-10.8) K/uL RBC (4.7-6.1) M/uL Hgb (14.0-18.0) g/dL Hct (42-52) % MCV (80-100) fL MCH (25-34) pg MCHC (32-36) g/dL RDW Std Deviation (36.4-46.3) fL RDW Coeff of Luciano (11.5-14.5) % Plt Count (130-400) K/uL MPV (7.4-10.4) fL Immature Gran % (Auto) % Neut % (Auto) % Lymph % (Auto) % [place] % (Auto) % Eos % (Auto) % Baso % (Auto) % Neut # (Auto) (1.4-6.5) K/uL Lymph # (Auto) (1.2-3.4) K/uL [place] # (Auto) (0.11-0.59) K/uL Eos # (Auto) (0-0.5) K/uL Baso # (Auto) (0-0.2) K/uL Immature Gran # (Auto) (0.00-0.02) K/uL PT (9.0-12.0) Seconds INR (0.9-1.1) Sodium (136-145) mmol/L Potassium (3.5-5.1) mmol/L Chloride (98-107) mmol/L Carbon Dioxide (21-32) mmol/L Anion Gap (3-11) BUN (7-18) mg/dl Creatinine (0.6-1.4) mg/dl Est Cr Clr Drug Dosing ml/min Est GFR ( Amer) ml/min Est GFR (Non-Af Amer) ml/min BUN/Creatinine Ratio (10-20) Glucose (70-99) mg/dl Calcium (8.5-10.1) mg/dl Magnesium (1.8-2.4) mg/dl Total Bilirubin (0.2-1) mg/dl AST (15-37) U/L ALT (12-78) U/L Alkaline Phosphatase (45-117) U/L Troponin I (0-0.045) ng/ml NT-Pro-B Natriuret Pep (0-1800) pg/ml Total Protein (6.4-8.2) gm/dl Albumin (3.4-5.0) gm/dl Globulin (2.5-4.0) gm/dl Albumin/Globulin Ratio (0.9-2) Digoxin 1.0 (0.8-2.0) ng/ml COVID-19 Eval Order Covid19 at [facility] SARS-CoV-2 (PCR) NEGATIVE (Negative) Imaging Data Radiologist's Impression: Chest X-Ray 05/18/21 15:27 XR chest 1V portable HISTORY: 80 years-old Male chest pain acute atypical chest pain COMPARISON: Chest radiographs 04/17/2021 TECHNIQUE: Portable AP view of the chest FINDINGS: Cardiac silhouette is enlarged. Chronic left hemidiaphragmatic elevation. Chronic interstitial coarsening of the lung bases. No pneumothorax, large pleural effusion or overt pulmonary edema. Degenerative changes of the shoulders and spine. Chronic right-sided rib fractures. IMPRESSION: Chronic findings as above without acute process. ACT 112: Negative or not required by law. The above report was generated using voice recognition software. It may contain grammatical, syntax or spelling errors. Electronically signed by: Mendoza Melton M.D. 05/18/2021 4:37 PM Chest CTA 05/18/21 17:27 CT angio chest PE protocol CT DOSE: 743.60 mGy.cm HISTORY: 80 years-old Male with PE. Acute shortness of breath TECHNIQUE: Multiple CTA images of the chest were obtained after the intravenous administration of 117 ml Optiray. Coronal and sagittal MIPS were obtained from the axial data set and were submitted for review. All measurements were obtained according to NASCET criteria. A dose lowering technique was utilized adhering to the principles of ALARA. COMPARISON: Chest radiograph of same day, CTA chest 10/25/2013 FINDINGS: CTA: Marked cardiomegaly with moderate to extensive coronary artery calcifications. Mild ectasia of the ascending thoracic aorta measures 3.6 cm. No aneurysm. Moderate associated atherosclerosis. Dilated pulmonary artery measures up to 2.2 cm suggestive of pulmonary artery hypertension. No filling defects to suggest thromboembolic disease. CT CHEST: No thyroid nodule. Prominent paratracheal and subcarinal lymph nodes measuring up to 9 mm are likely reactive. Trace left and small right pleural effusion. No pneumothorax. Moderate bronchial wall thickening with multifocal mucus plugging. Right greater left bibasilar groundglass densities with linear areas of subsegmental consolidation. No suspicious pulmonary nodules or masses. Mild nonspecific distal esophageal wall thickening. Colonic diverticulosis. Unremarkable soft tissues. Chronic bilateral rib fractures. IMPRESSION: 1. Cardiomegaly with suggested pulmonary artery hypertension. No pulmonary emboli. 2. Moderate bronchial wall thickening suggestive of bronchitis or reactive airway disease with multifocal mucus plugging. 3. Trace left and small right pleural effusions with bibasilar opacities suggestive of atelectasis. 4. Additional findings as above. ACT 112: Negative or not required by law. The above report was generated using voice recognition software. It may contain grammatical, syntax or spelling errors. Electronically signed by: Mendoza Melton M.D. 05/18/2021 6:40 PM ECG Data Attestation: I personally reviewed and interpreted this ECG as follows: Indication: + chest pain and + SOB/dyspnea Rate (beats per minute): 88 Rhythm: + atrial fibrillation ECG Intervals/blocks: + Normal QRS and + Normal QT ECG [place]: + Normal ECG ST segments: + Nonspecific ST abnormalities MDM Narrative This is a 80-year-old male presents the emergency department with complaints of shortness of breath and chest pain. Patient with recent evaluation here and found to have new onset atrial fibrillation and was anticoagulated. Patient states he has been taking his medications as prescribed. Patient found to be in a rate controlled atrial fibrillation here, no other acute EKG changes. Patient's INR subtherapeutic. Patient did feel improved after he was given aspirin nitro prehospital. Elevated BNP was noted, although no fulminant evidence of acute volume overload on physical exam. Due to recent history, risk factors for ACS, abnormal BNP, and subtherapeutic INR, case discussed with hospitalist for additional evaluation and treatment. CT angiography of the chest was performed and was negative for acute PE. Given patient's history of C OPD, patient also covered for possible COPD exacerbation. Patient was given a dose of Lovenox here to help bridge until he is therapeutic again on his Coumadin. An order was placed for continuous cardiac monitoring. The monitor shows a rate of _76_ with _atrial fibrillation_ rhythm. Impression & Plan Dyspnea, Chest pain, Subtherapeutic international normalized ratio (INR), Atrial fibrillation Discharge Plan Visit Data Chief Complaint: Chest Pain Stated Complaint: CHEST PAIN ED Provider: Charlotte Lyons Discharge Problem: Dyspnea, Chest pain, Subtherapeutic international normalized ratio (INR), Atrial fibrillation Patient Disposition: Admitted As Inpatient Discharge Instructions Interventions: ED Discharge Assessment Last Done: 05/18/21 22:10 Discharge Problem: Dyspnea Qualifiers: Dyspnea type: dyspnea on exertion Qualified Code(s): R06.00 - Dyspnea, unspecified Chest pain Qualifiers: Chest pain type: unspecified Qualified Code(s): R07.9 - Chest pain, unspecified Atrial fibrillation Qualifiers: Atrial fibrillation type: unspecified Qualified Code(s): I48.91 - Unspecified atrial fibrillation
[2021-05-18 16:08] LABS: Albumin Level 2.9 gm/dl (3.4-5.0); BUN Creatinine Ratio 14.6 (10-20); Calcium 9.3 mg/dl (8.5-10.1); Est GFR (African American) 95.6 ml/min; Est GFR (Non-African American) 82.5 ml/min; Magnesium 2.5 mg/dl (1.8-2.4); Potassium 4.9 mmol/L (3.5-5.1)
[2021-05-18 16:13] LABS: Albumin Globulin Ratio 0.9 (0.9-2); Bilirubin,Total 0.4 mg/dl (0.2-1); Globulin 3.2 gm/dl (2.5-4.0); Total Protein 6.1 gm/dl (6.4-8.2); Troponin I 0.015 ng/ml (0-0.045)
--- NOTE | 2021-05-18 16:38 | XRay Report ---
XR chest 1V portable HISTORY: 80 years-old Male chest pain acute atypical chest pain COMPARISON: Chest radiographs 04/17/2021 TECHNIQUE: Portable AP view of the chest FINDINGS: Cardiac silhouette is enlarged. Chronic left hemidiaphragmatic elevation. Chronic interstitial coarse michaela of the lung bases. No pneumothorax, large pleural effusion or overt pulmonary edema. Degenerativ e changes of the shoulders and spine. Chronic right-sided rib fractures. IMPRESSION: Chronic findings as above without acute process. ACT 112: Negative or not required by law. The above report was generated using voice recognition software. It may contain grammatical, syntax o r spelling errors. Electronically signed by: Mendoza Melton M.D. 05/18/2021 4:37 PM
[2021-05-18 16:56] LABS: INR 1.3 (0.9-1.1); Prothrombin Time 13.2 Seconds (9.0-12.0)
[2021-05-18] MEDS ORDERED: DOXYCYCLINE HYCLATE 100 MG CAP PO STA (17:24)
[2021-05-18] MEDS ORDERED: OPTIRAY 320 125ml IV ONE (18:16)
--- NOTE | 2021-05-18 18:41 | CT Scan Report ---
CT angio chest PE protocol CT DOSE: 743.60 mGy.cm HISTORY: 80 years-old Male with PE. Acute shortness of breath TECHNIQUE: Multiple CTA images of the chest were obtained after the intravenous administration of 117 ml Optiray. Coronal and sagittal MIPS were obtained from the axial data set and were submitted for review. All measurements were obtained according to NASCET criteria. A dose lowering technique was u tilized adhering to the principles of ALARA. COMPARISON: Chest radiograph of same day, CTA chest 10/25/2013 FINDINGS: CTA: Marked cardiomegaly with moderate to extensive coronary artery calcifications. Mild ectasia of the as cending thoracic aorta measures 3.6 cm. No aneurysm. Moderate associated atherosclerosis. Dilated pul monary artery measures up to 2.2 cm suggestive of pulmonary artery hypertension. No filling defects t o suggest thromboembolic disease. CT CHEST: No thyroid nodule. Prominent paratracheal and subcarinal lymph nodes measuring up to 9 mm are likely reactive. Trace left and small right pleural effusion. No pneumothorax. Moderate bronchial wall thick ening with multifocal mucus plugging. Right greater left bibasilar groundglass densities with linear areas of subsegmental consolidation. No suspicious pulmonary nodules or masses. Mild nonspecific distal esophageal wall thickening. Colonic diverticulosis. Unremarkable soft tissues . Chronic bilateral rib fractures. IMPRESSION: 1. Cardiomegaly with suggested pulmonary artery hypertension. No pulmonary emboli. 2. Moderate bronchial wall thickening suggestive of bronchitis or reactive airway disease with multif ocal mucus plugging. 3. Trace left and small right pleural effusions with bibasilar opacities suggestive of atelectasis. 4. Additional findings as above. ACT 112: Negative or not required by law. The above report was generated using voice recognition software. It may contain grammatical, syntax o r spelling errors. Electronically signed by: Mendoza Melton M.D. 05/18/2021 6:40 PM
[2021-05-18] MEDS ORDERED: methylPREDNISolone 125 MG/2 ML VIAL IV STA (18:46)
[2021-05-18] MEDS ORDERED: ENOXAPARIN 1.5 MG/KG SQ STA (18:46)
--- NOTE | 2021-05-18 18:57 | History & Physical Report ---
Date of Service May 18, 2021 Assessment & Plan (1) Bronchitis: Plan: Bronchitis/COPD- Methylprednisolone 40 mg IV every 8 hours Ceftriaxone 2 g IV daily Azithromycin 5 mg IV daily Duonebs every 4 hours while awake and every 2 hours when necessary. Guaifenesin extended release 1200 mg p.o. twice daily Nasal cannula oxygen, titrate to keep pulse ox around 95% (2) History of DVT (deep vein thrombosis): Plan: Continue warfarin. INR subtherapeutic at 1.3 Bridged with Lovenox 1 mg/kg subcu every 12 hours (3) Dyslipidemia: Plan: Continue atorvastatin (4) Sleep apnea: Plan: CPAP at at bedtime (5) COPD (chronic obstructive pulmonary disease): Plan: See above (6) CAD (coronary artery disease): Plan: CAD/hypertension/PAF- Continue aspirin, digoxin, diltiazem, metoprolol tartrate and warfarin (7) Atrial fibrillation with rapid ventricular response: Plan: See above History of Present Illness Chief Complaint: The patient presents to the emergency department with complaint of chest pain for the past 2 weeks, and the development of shortness of breath over the past few days. Primary Care Provider: JONATHAN Russo The patient is a 80-year-old male with a past medical history including prostate cancer, urinary tract infection, history of DVT, fatigue, renal insufficiency, dyslipidemia, sleep apnea, chronic hypoxemic respiratory failure, hypercholesterolemia, COPD, CAD, chronic heart failure, atrial fib with RVR, hypertension, depression and mild CHF. The patient presents to the emergency department with symptoms as noted above. Allergies Allergy/AdvReac Type Severity Reaction Status Date / Time acetazolamide Allergy Intermediate swelling Verified 05/18/21 19:15 [From [employer]] Home Medications Medication Instructions Recorded Confirmed Type aspirin 81 mg tablet,delayed 81 mg PO QAM #30 tab 01/12/19 05/18/21 Rx release (Ecotrin Low Strength) calcium carbonate 500 mg (1,250 500 tab PO BID 04/11/21 05/18/21 History mg)-vitamin D3 400 unit tablet (Calcium 500 + D) multivitamin (Daily Multi-Vitamin) 1 tab PO QAM 04/11/21 05/18/21 History acetaminophen 325 mg tablet 650 mg PO Q4H PRN #30 tab 09/11/21 10/07/21 Rx atorvastatin 40 mg tablet 40 mg PO HS #30 tab 04/22/21 05/18/21 Rx digoxin 125 mcg (0.125 mg) tablet 125 mcg PO DAILY@1600 #30 tab 04/22/21 05/18/21 Rx (Digitek) diltiazem HCl 120 mg 120 mg PO QAM #30 cap 04/22/21 05/18/21 Rx capsule,extended release 24 hr ipratropium 0.5 mg-albuterol 3 mg 3 ml INHALATION Q4H PRN #90 ml 04/22/21 05/18/21 Rx (2.5 mg base)/3 mL nebulization soln metoprolol tartrate 50 mg tablet 150 mg PO BID #0 tab 04/22/21 05/18/21 Rx (Lopressor) nystatin 100,000 unit/gram topical 1 applic EXT TID #30 g 04/22/21 05/18/21 Rx powder (Nystop) pantoprazole 40 mg tablet,delayed 40 mg PO BID #60 tab 04/22/21 05/18/21 Rx release sennosides 8.6 mg tablet (Senokot) 17.2 mg PO QAM #60 tab 04/22/21 05/18/21 Rx tamsulosin 0.4 mg capsule (Flomax) 0.4 mg PO DAILY #30 cap 04/22/21 05/18/21 Rx furosemide 80 mg tablet (Lasix) 80 mg PO QAM #30 tab 05/10/21 05/18/21 Rx potassium chloride 20 mEq 20 meq PO BID #60 tab 05/10/21 05/18/21 Rx tablet,extended release(part/cryst) (Klor-Con M) cephalexin 500 mg capsule 500 mg PO BID 05/18/21 05/18/21 History warfarin 10 mg tablet 7.5 - 10 mg PO UD 05/18/21 05/18/21 History Past Med/Surg History Medical History (HFpEF) heart failure with preserved ejection fraction Aortic stenosis, mild CAD (coronary artery disease) Cancer of prostate Chronic hypoxemic respiratory failure COPD (chronic obstructive pulmonary disease) Depression DVT (deep venous thrombosis) Dyslipidemia Heart disease HTN (hypertension) Myocardial infarct Sleep apnea TIA (transient ischemic attack) Surgical History History of appendectomy Hx of tonsillectomy Hx of vasectomy Family History Family/Other Prostate cancer Myocardial infarction Denies family history of Ovarian cancer Breast cancer Colorectal cancer Social History Smoking Status: Never smoker Tobacco Type: Cigarettes Second Hand Exposure: No; Hx Alcohol Use: Yes Alcohol type: beer Alcohol Intake Frequency: 2-4 x/Month Hx Substance Use: No Preferred Language: Tanzanian Communication Ability: Effective 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 Beliefs That Will Affect Care: None marital status: Current Living Situation: Spouse current occupational status: retired Feels Safe at Home: Yes caffeine: Yes Dental Care, Regularly: No Physical Activity Frequency: Does not Exercise Seatbelt Use: always Sunscreen Use: No Assistive Devices: Oxygen - Continuous and Walker Review of Systems Review of Systems: The patient denies palpitations, cough, lower extremity swelling, sore throat, fevers, chills, sweats, vomiting, diarrhea , constipati on, abdominal pain, pelvic pain, blood in urine or stool, dysuria, urinary frequency or urgency, lightheadedness, dizziness, headache, memory loss, loss of consciousness, rash, abnormal bruising or bleeding, imbalance, focal weakness, numbness or tingling in arms or legs, generalized arthralgias or myalgias, back or neck pain, or night sweats. The review of systems is otherwise negative other than for that already noted above, and at least 10 systems have been reviewed. Physical Exam Physical Exam: The patient is awake, alert and oriented 3, well developed and well nourished, normocephalic and atraumatic, lying in bed and in no acute distress. HEENT--PERRL, EOMI, mucous membranes and oropharynx normal Neck--supple. No JVD. No bruits. Thyroid normal, trachea midline, no adenopathy. Heart--normal S1 and S2. No murmurs, rubs or gallops. Lungs--few crackles at the bases bilaterally. No respiratory distress, no accessory muscle use. Abdomen--normal bowel sounds and soft. Nontender. Nondistended. Morbid obesity Extremities--no cyanosis or clubbing. No edema. Dermatologic--normal skin turgor, normal color, no abnormal lymph nodes, no rash. Neurologic--cranial nerves II through XII grossly intact. Rheumatologic--normal range of motion. Psychiatric--normal affect. Results & Data Results & Data ([facility]) Vital Signs (Past 12 Hours) Vital Signs Temp Pulse Resp BP Pulse Ox 05/18/21 17:30 143/85 H 96 05/18/21 17:00 100 05/18/21 16:30 95 05/18/21 16:00 105 H 22 100 05/18/21 15:52 111 H 20 99 05/18/21 15:16 100 05/18/21 15:04 97.7 F 112 H 24 132/56 L 88 L Laboratory Results Laboratory Results WBC 8.58 K/uL (4.8-10.8) 05/18/21 15:18 RBC 3.55 M/uL (4.7-6.1) L 05/18/21 15:18 Hgb 11.5 g/dL (14.0-18.0) L 05/18/21 15:18 Hct 36.9 % (42-52) L 05/18/21 15:18 MCV 103.9 fL (80-100) H 05/18/21 15:18 MCH 32.4 pg (25-34) 05/18/21 15:18 MCHC 31.2 g/dL (32-36) L 05/18/21 15:18 RDW Std Deviation 54.0 fL (36.4-46.3) H 05/18/21 15:18 RDW Coeff of Luciano 14.1 % (11.5-14.5) 05/18/21 15:18 Plt Count 322 K/uL (130-400) 05/18/21 15:18 MPV 11.1 fL (7.4-10.4) H 05/18/21 15:18 Immature Gran % (Auto) 0.2 % 05/18/21 15:18 Neut % (Auto) 72.4 % 05/18/21 15:18 Lymph % (Auto) 19.0 % 05/18/21 15:18 [place] % (Auto) 7.0 % 05/18/21 15:18 Eos % (Auto) 1.3 % 05/18/21 15:18 Baso % (Auto) 0.1 % 05/18/21 15:18 Neut # (Auto) 6.21 K/uL (1.4-6.5) 05/18/21 15:18 Lymph # (Auto) 1.63 K/uL (1.2-3.4) 05/18/21 15:18 [place] # (Auto) 0.60 K/uL (0.11-0.59) H 05/18/21 15:18 Eos # (Auto) 0.11 K/uL (0-0.5) 05/18/21 15:18 Baso # (Auto) 0.01 K/uL (0-0.2) 05/18/21 15:18 Immature Gran # (Auto) 0.02 K/uL (0.00-0.02) 05/18/21 15:18 PT 13.2 Seconds (9.0-12.0) H 05/18/21 15:18 INR 1.3 (0.9-1.1) H 05/18/21 15:18 Sodium 137 mmol/L (136-145) 05/18/21 15:18 Potassium 4.9 mmol/L (3.5-5.1) 05/18/21 15:18 Chloride 98 mmol/L (98-107) 05/18/21 15:18 Carbon Dioxide 35 mmol/L (21-32) H 05/18/21 15:18 Anion Gap 4.0 (3-11) 05/18/21 15:18 BUN 13 mg/dl (7-18) 05/18/21 15:18 Creatinine 0.86 mg/dl (0.6-1.4) 05/18/21 15:18 Est Cr Clr Drug Dosing 97.0 ml/min 05/18/21 15:18 Est GFR ( Amer) 95.6 ml/min 05/18/21 15:18 Est GFR (Non-Af Amer) 82.5 ml/min 05/18/21 15:18 BUN/Creatinine Ratio 14.6 (10-20) 05/18/21 15:18 Glucose 87 mg/dl (70-99) 05/18/21 15:18 Calcium 9.3 mg/dl (8.5-10.1) 05/18/21 15:18 Magnesium 2.5 mg/dl (1.8-2.4) H 05/18/21 15:18 Total Bilirubin 0.4 mg/dl (0.2-1) 05/18/21 15:18 AST 19 U/L (15-37) 05/18/21 15:18 ALT 28 U/L (12-78) 05/18/21 15:18 Alkaline Phosphatase 81 U/L (45-117) 05/18/21 15:18 Troponin I 0.015 ng/ml (0-0.045) 05/18/21 15:18 NT-Pro-B Natriuret Pep 5933 pg/ml (0-1800) H 05/18/21 15:18 Total Protein 6.1 gm/dl (6.4-8.2) L 05/18/21 15:18 Albumin 2.9 gm/dl (3.4-5.0) L 05/18/21 15:18 Globulin 3.2 gm/dl (2.5-4.0) 05/18/21 15:18 Albumin/Globulin Ratio 0.9 (0.9-2) 05/18/21 15:18 Digoxin 1.0 ng/ml (0.8-2.0) 05/18/21 15:18 COVID-19 Eval Order Covid19 at [facility] 05/18/21 15:18 SARS-CoV-2 (PCR) NEGATIVE (Negative) 05/18/21 15:18 Impressions Chest X-Ray 05/18/21 15:27 XR chest 1V portable HISTORY: 80 years-old Male chest pain acute atypical chest pain COMPARISON: Chest radiographs 04/17/2021 TECHNIQUE: Portable AP view of the chest FINDINGS: Cardiac silhouette is enlarged. Chronic left hemidiaphragmatic elevation. Chronic interstitial coarsening of the lung bases. No pneumothorax, large pleural effusion or overt pulmonary edema. Degenerative changes of the shoulders and spine. Chronic right-sided rib fractures. IMPRESSION: Chronic findings as above without acute process. ACT 112: Negative or not required by law. The above report was generated using voice recognition software. It may contain grammatical, syntax or spelling errors. Electronically signed by: Mendoza Melton M.D. 05/18/2021 4:37 PM Chest CTA 10/07/21 17:27 CT angio chest PE protocol CT DOSE: 743.60 mGy.cm HISTORY: 80 years-old Male with PE. Acute shortness of breath TECHNIQUE: Multiple CTA images of the chest were obtained after the intravenous administration of 117 ml Optiray. Coronal and sagittal MIPS were obtained from the axial data set and were submitted for review. All measurements were obtained according to NASCET criteria. A dose lowering technique was utilized adhering to the principles of ALARA. COMPARISON: Chest radiograph of same day, CTA chest 10/25/2013 FINDINGS: CTA: Marked cardiomegaly with moderate to extensive coronary artery calcifications. Mild ectasia of the ascending thoracic aorta measures 3.6 cm. No aneurysm. Moderate associated atherosclerosis. Dilated pulmonary artery measures up to 2.2 cm suggestive of pulmonary artery hypertension. No filling defects to suggest thromboembolic disease. CT CHEST: No thyroid nodule. Prominent paratracheal and subcarinal lymph nodes measuring up to 9 mm are likely reactive. Trace left and small right pleural effusion. No pneumothorax. Moderate bronchial wall thickening with multifocal mucus plugging. Right greater left bibasilar groundglass densities with linear areas of subsegmental consolidation. No suspicious pulmonary nodules or masses. Mild nonspecific distal esophageal wall thickening. Colonic diverticulosis. Unremarkable soft tissues. Chronic bilateral rib fractures. IMPRESSION: 1. Cardiomegaly with suggested pulmonary artery hypertension. No pulmonary emboli. 2. Moderate bronchial wall thickening suggestive of bronchitis or reactive airway disease with multifocal mucus plugging. 3. Trace left and small right pleural effusions with bibasilar opacities suggestive of atelectasis. 4. Additional findings as above. ACT 112: Negative or not required by law. The above report was generated using voice recognition software. It may contain grammatical, syntax or spelling errors. Electronically signed by: Mendoza Melton M.D. 05/18/2021 6:40 PM Code Status & VTE Plan Code Status Full code VTE Prophylaxis Plan VTE Prophylaxis will be ordered: Yes PG Care Time/CCT Total # of Minutes Spent Total Time Spent with Patient: Total time spent is greater than 50% in coordination of care (as documented) at patient's floor/unit and/or counseling patient: Coding Level of Care Code INT OBSERVATION CARE 70M LVL 3 Diagnoses Bronchitis J40 History of DVT (deep vein thrombosis) Z86.718 Dyslipidemia E78.5 Sleep apnea G47.30 COPD (chronic obstructive pulmonary disease) J44.9 CAD (coronary artery disease) I25.10 Atrial fibrillation with rapid ventricular response I48.91
[2021-05-18] MEDS ORDERED: ENOXAPARIN INJ 120 MG/0.8 ML SYR SQ ONE (19:15)
[2021-05-18] MEDS ORDERED: ALBUT/IPRATROP 3MG/0.5MG NEB 3 ML VIAL INH PRN (23:36)
[2021-05-18] MEDS ORDERED: WARFARIN SOD 10 MG TAB PO SCH (23:45)
[2021-05-19] MEDS: CALCIUM 600MG + VIT D 400 IU TAB PO SCH ×3 (00:11→20:24)
[2021-05-19] MEDS: POTASSIUM CHLORIDE CRTAB 20 MEQ TABCR PO SCH ×3 (00:11→16:56)
[2021-05-19] MEDS: PANTOprazole 40 MG TAB PO SCH ×3 (00:12→20:23)
[2021-05-19] MEDS: METOPROLOL TARTRATE 50 MG TAB PO SCH ×3 (00:12→20:23)
[2021-05-19] MEDS: guaiFENesin 600 MG TABCR PO SCH ×3 (00:13→20:23)
[2021-05-19] MEDS: cefTRIAXone SODIUM 2,000 MG in DEXTROSE 5% 50 ML IV SCH ×2 (00:14→23:55)
[2021-05-19] MEDS: ATORVASTATIN 40 MG TAB PO SCH ×2 (00:14→20:24)
[2021-05-19] MEDS: AZITHROMYCIN 500 MG in DEXTROSE 5% 250 ML IV SCH (01:16)
[2021-05-19] MEDS: methylPREDNISolone 40 MG in SYRINGE 0 ML IV SCH ×3 (03:25→20:28)
[2021-05-19 07:37] LABS: Basophils # (auto) 0.01 K/uL (0-0.2); Basophils % (auto) 0.1 %; Hematocrit (blood only) 39.7 % (42-52); Hemoglobin 12.4 g/dL (14.0-18.0); Immature Granulocytes # (auto) 0.02 K/uL (0.00-0.02); Immature Granulocytes % (auto) 0.3 %; Lymphocytes # (auto) 0.74 K/uL (1.2-3.4); Lymphocytes % (auto) 9.4 %; Mean Corpuscular Hemoglobin 32.9 pg (25-34); Mean Corpuscular Hgb Conc 31.2 g/dL (32-36); Mean Corpuscular Volume 105.3 fL (80-100); Mean Platelet Volume 10.9 fL (7.4-10.4); Monocytes # (auto) 0.01 K/uL (0.11-0.59); Monocytes % (auto) 0.1 %; Neutrophils # (auto) 7.12 K/uL (1.4-6.5); Neutrophils % (auto) 90.1 %; Platelet Count 322 K/uL (130-400); RDW Coefficient of Variation 14.3 % (11.5-14.5); RDW Standard Deviation 54.6 fL (36.4-46.3); Red Blood Count 3.77 M/uL (4.7-6.1)
[2021-05-19] MEDS ORDERED: Influenza Vaccine-High Dose (Fluzone-HD) PF 65+ 0.7 ML SYR IM ONE (08:00)
[2021-05-19 08:03] LABS: Albumin Level 2.7 gm/dl (3.4-5.0); BUN Creatinine Ratio 18.5 (10-20); Blood Urea Nitrogen 16 mg/dl (7-18); Calcium 9.1 mg/dl (8.5-10.1); Carbon Dioxide 32 mmol/L (21-32); Chloride 98 mmol/L (98-107); Creatinine Clr Calc Pharmacy 83.5 ml/min; Est GFR (African American) 95.1 ml/min; Est GFR (Non-African American) 82.1 ml/min; Glucose 124 mg/dl (70-99); Magnesium 2.7 mg/dl (1.8-2.4); Potassium 5.3 mmol/L (3.5-5.1); Sodium 136 mmol/L (136-145)
[2021-05-19 08:06] LABS: Alanine Aminotransferase 23 U/L (12-78); Albumin Globulin Ratio 0.7 (0.9-2); Alkaline Phosphatase 84 U/L (45-117); Aspartate Aminotransferase 15 U/L (15-37); Bilirubin,Total 0.5 mg/dl (0.2-1); Globulin 3.6 gm/dl (2.5-4.0); Total Protein 6.4 gm/dl (6.4-8.2); Troponin I < 0.015 ng/ml (0-0.045)
[2021-05-19] MEDS: MULTIVITAMIN TAB PO SCH (08:24)
[2021-05-19] MEDS: TAMSULOSIN HCL 0.4 MG CAP PO SCH (08:24)
[2021-05-19] MEDS: dilTIAZem HCL 120 MG CAPCR PO SCH (08:25)
[2021-05-19] MEDS: ASPIRIN 81 MG ECTAB PO SCH (08:25)
[2021-05-19] MEDS: ENOXAPARIN INJ 120 MG/0.8 ML SYR SQ SCH ×2 (08:26→20:24)
[2021-05-19] MEDS: SENNA 8.6 MG TAB PO SCH (08:26)
[2021-05-19] MEDS: POLYETHYLENE (MIRALAX) 17 GM PACK PO SCH (08:26)
--- NOTE | 2021-05-19 09:47 | Hospitalist Progress Note ---
Date of Service May 19, 2021 Assessment & Plan (1) Chest pain: Plan: Pt had 3 negative troponin, chest pain secondary to possible pulmonary process (2) Bronchitis: Plan: Bronchitis/COPD- Methylprednisolone 40 mg IV every 12 hours Ceftriaxone 2 g IV daily Azithromycin 5 mg IV daily Duonebs every 4 hours while awake and every 2 hours when necessary. Guaifenesin extended release 1200 mg p.o. twice daily Nasal cannula oxygen, titrate to keep pulse ox around 95% (3) History of DVT (deep vein thrombosis): Plan: Continue warfarin. INR subtherapeutic at 1.3 Bridged with Lovenox 1 mg/kg subcu every 12 hours (4) Dyslipidemia: Plan: Continue atorvastatin (5) Permanent atrial fibrillation: Plan: rate controlled on metoprolol , diltiazem and digoxin (6) Sleep apnea: Plan: CPAP at at bedtime (7) COPD (chronic obstructive pulmonary disease): Plan: pt has chronic hypoxic respiratory failure chronically on 2.5 l nc (8) CAD (coronary artery disease): Plan: CAD/hypertension/PAF- Continue aspirin, digoxin, diltiazem, metoprolol tartrate and warfarin Admission and Anticipated Discharge Date Admission Date: May 18, 2021 Subjective This patient was seen in the ER where he is lying in semifowler position sleeping. I woken him. He said he still feeling not much better he still having coughing. While he was sleeping he did not have significant shortness of breath. He says his cough is productive of wells sputum. He denies having any recurrence of his chest pain or other discomfort. Review of Systems Review of Systems: Mild to moderate respiratory distress and fatigue no headache, no visual changes no speech or swallowing issues no recurrence of chest pain, pressure or palpitations Worsening baseline shortness of breath cough productive of wells sputum no audible wheezes no abdominal pain, nausea or vomiting, diarrhea or constipation no dysuria, hematuria or frequency no focal joint pain or swelling no back pain, CVA tenderness or radicular pain no bruising, bleeding or rashes no focal signs of weakness or numbness or altered sensation no complaints of anxiety or depression.. Physical Exam Physical Exam: The patient appeared well nourished and normally developed. Vital signs as documented. Head exam is normocephalic atraumatic Neck is without JVD, thyromegaly, or carotid bruits. Lungs are air movement in all lung ponce diminished throughout no focal loss egophony or wheezes Cardiac exam, Rhythm is regular.. Systolic ejection murmur is heard Abdominal exam reveals normal bowel sounds, soft non tender, no masses Extremities are trace edema bilaterally and both pedal pulses are present Neurologic exam is alert and oriented, no focal loss of strength or sensation Skin is without bruises or rashes Psychologically is without concerns for anxiety or depression Results & Data Results & Data ([facility]) Vital Signs (Past 12 Hours) Vital Signs Pulse Pulse Resp BP Pulse Ox 05/19/21 04:58 80 18 97 05/19/21 03:15 76 21 125/73 100 05/19/21 01:13 110 H 24 136/84 95 05/19/21 00:30 117 H 18 112/69 97 05/18/21 22:30 88 22 05/18/21 22:00 89 16 PG Care Time/CCT Total # of Minutes Spent Total Time Spent with Patient: Total time spent is greater than 50% in coordination of care (as documented) at patient's floor/unit and/or counseling patient: Coding Level of Care Code 88907 Subseq Hosp Care Lvl 3 Diagnoses Bronchitis J40 History of DVT (deep vein thrombosis) Z86.718 Dyslipidemia E78.5 Sleep apnea G47.30 COPD (chronic obstructive pulmonary disease) J44.9 CAD (coronary artery disease) I25.10 Permanent atrial fibrillation I48.21 Chest pain R07.9
[2021-05-19] MEDS ORDERED: WARFARIN SOD 2.5 MG TAB PO SCH (16:00)
[2021-05-19] MEDS ORDERED: WARFARIN SOD 7.5 MG TAB PO SCH (16:00)
[2021-05-19] MEDS: DIGOXIN 0.125 MG TAB PO SCH (16:36)
--- NOTE | 2021-05-19 17:32 | Electrocardiogram Report ---
Test Reason : Blood Pressure : / mmHG Vent. Rate : 088 BPM Atrial Rate : 141 BPM P-R Int : 000 ms QRS Dur : 106 ms QT Int : 356 ms P-R-T Axes : 000 -09 187 degrees QTc Int : 430 ms Atrial fibrillation Incomplete right bundle branch block Nonspecific ST and T wave abnormality Abnormal ECG When compared with ECG of 15-APR-2021 20:44, ST no longer depressed in Anterior leads T wave inversion no longer evident in Anterior leads Confirmed by Rodriguez Sawant ([id number]) on 05/19/2021 5:31:50 PM Referred By: REFERRED SELF Confirmed By:Kumar Sawant
[2021-05-20] MEDS: AZITHROMYCIN 500 MG in DEXTROSE 5% 250 ML IV SCH (00:49)
[2021-05-20 06:46] LABS: Hematocrit (blood only) 37.7 % (42-52); Hemoglobin 11.4 g/dL (14.0-18.0); Immature Granulocytes # (auto) 0.03 K/uL (0.00-0.02); Immature Granulocytes % (auto) 0.3 %; Lymphocytes # (auto) 0.75 K/uL (1.2-3.4); Lymphocytes % (auto) 7.1 %; Mean Corpuscular Hemoglobin 31.8 pg (25-34); Mean Corpuscular Hgb Conc 30.2 g/dL (32-36); Mean Corpuscular Volume 105.3 fL (80-100); Mean Platelet Volume 11.2 fL (7.4-10.4); Monocytes # (auto) 0.33 K/uL (0.11-0.59); Monocytes % (auto) 3.1 %; Neutrophils # (auto) 9.39 K/uL (1.4-6.5); Neutrophils % (auto) 89.5 %; Platelet Count 326 K/uL (130-400); RDW Coefficient of Variation 14.3 % (11.5-14.5); Red Blood Count 3.58 M/uL (4.7-6.1)
--- NOTE | 2021-05-20 06:54 | Electrocardiogram Report ---
Test Reason : Blood Pressure : / mmHG Vent. Rate : 073 BPM Atrial Rate : 096 BPM P-R Int : 000 ms QRS Dur : 098 ms QT Int : 360 ms P-R-T Axes : 000 004 231 degrees QTc Int : 396 ms Atrial fibrillation Abnormal ECG Confirmed by Rodriguez Sawant ([id number]) on 05/20/2021 6:53:52 AM Referred By: REFERRED SELF Confirmed By:Kumar Sawant
[2021-05-20 07:06] LABS: Albumin Level 2.7 gm/dl (3.4-5.0); BUN Creatinine Ratio 21.1 (10-20); Calcium 8.9 mg/dl (8.5-10.1); Creatinine Clr Calc Pharmacy 56.3 ml/min; Est GFR (African American) 60.7 ml/min; Est GFR (Non-African American) 52.4 ml/min; Magnesium 2.6 mg/dl (1.8-2.4)
[2021-05-20 07:09] LABS: Albumin Globulin Ratio 0.8 (0.9-2); Bilirubin,Total 0.3 mg/dl (0.2-1); Globulin 3.3 gm/dl (2.5-4.0)
[2021-05-20 07:17] LABS: Prothrombin Time 36.3 Seconds (9.0-12.0)
--- NOTE | 2021-05-20 09:08 | Hospitalist Progress Note ---
Date of Service May 20, 2021 Assessment & Plan (1) Chest pain: Plan: Pt had 3 negative troponin, chest pain secondary to possible pulmonary process (2) Bronchitis: Plan: Bronchitis/COPD- Methylprednisolone 40 mg IV every 12 hours Ceftriaxone 2 g IV daily Azithromycin 5 mg IV daily Duonebs every 4 hours while awake and every 2 hours when necessary. Guaifenesin extended release 1200 mg p.o. twice daily Nasal cannula oxygen, titrate to keep pulse ox around 95% (3) History of DVT (deep vein thrombosis): Plan: Continue warfarin. INR supratherapeutic now stop coumadin at this time, follow daily inr restart likley in 48 hours (4) Dyslipidemia: Plan: Continue atorvastatin (5) Permanent atrial fibrillation: Plan: rate controlled on metoprolol , diltiazem and digoxin (6) Sleep apnea: Plan: CPAP at at bedtime (7) COPD (chronic obstructive pulmonary disease): Plan: pt has chronic hypoxic respiratory failure chronically on 2.5 l nc (8) CAD (coronary artery disease): Plan: CAD/hypertension/PAF- Continue aspirin, digoxin, diltiazem, metoprolol tartrate and warfarin Admission and Anticipated Discharge Date Admission Date: May 18, 2021 Subjective Patient is much better today still short of breath has a raspy loose cough no further complaints of chest pain overall feels a slightly better than the day before Review of Systems Review of Systems: Mild to moderate respiratory distress and fatigue no headache, no visual changes no speech or swallowing issues no recurrence of chest pain, pressure or palpitations Worsening baseline shortness of breath cough productive of wells sputum no audible wheezes no abdominal pain, nausea or vomiting, diarrhea or constipation no dysuria, hematuria or frequency no focal joint pain or swelling no back pain, CVA tenderness or radicular pain no bruising, bleeding or rashes no focal signs of weakness or numbness or altered sensation no complaints of anxiety or depression.. Physical Exam Physical Exam: The patient appeared well nourished and normally developed. Vital signs as documented. Head exam is normocephalic atraumatic Neck is without JVD, thyromegaly, or carotid bruits. Lungs are air movement in all lung ponce diminished throughout no focal loss egophony or wheezes Cardiac exam, Rhythm is regular.. Systolic ejection murmur is heard Abdominal exam reveals normal bowel sounds, soft non tender, no masses Extremities are trace edema bilaterally and both pedal pulses are present Neurologic exam is alert and oriented, no focal loss of strength or sensation Skin is without bruises or rashes Psychologically is without concerns for anxiety or depression Results & Data Results & Data ([facility]) Vital Signs (Past 12 Hours) Vital Signs Temp Pulse Resp BP Pulse Ox 05/20/21 07:49 97.9 F 89 19 118/61 98 05/20/21 04:00 97.5 F L 98 H 16 114/68 100 05/19/21 23:09 98.6 F 100 H 21 104/69 99 PG Care Time/CCT Total # of Minutes Spent Total Time Spent with Patient: Total time spent is greater than 50% in coordination of care (as documented) at patient's floor/unit and/or counseling patient: Coding Level of Care Code 28468 Subseq Hosp Care Lvl 2 Diagnoses Chest pain R07.9 Bronchitis J40 History of DVT (deep vein thrombosis) Z86.718 Dyslipidemia E78.5 Permanent atrial fibrillation I48.21 Sleep apnea G47.30 COPD (chronic obstructive pulmonary disease) J44.9 CAD (coronary artery disease) I25.10
[2021-05-20] MEDS: ENOXAPARIN INJ 120 MG/0.8 ML SYR SQ SCH (09:13)
[2021-05-20] MEDS: SENNA 8.6 MG TAB PO SCH (09:17)
[2021-05-20] MEDS: PANTOprazole 40 MG TAB PO SCH ×2 (09:17→20:52)
[2021-05-20] MEDS: METOPROLOL TARTRATE 50 MG TAB PO SCH ×2 (09:17→20:51)
[2021-05-20] MEDS: MULTIVITAMIN TAB PO SCH (09:17)
[2021-05-20] MEDS: TAMSULOSIN HCL 0.4 MG CAP PO SCH (09:17)
[2021-05-20] MEDS: dilTIAZem HCL 120 MG CAPCR PO SCH (09:18)
[2021-05-20] MEDS: ASPIRIN 81 MG ECTAB PO SCH (09:18)
[2021-05-20] MEDS: guaiFENesin 600 MG TABCR PO SCH ×2 (09:18→20:50)
[2021-05-20] MEDS: CALCIUM 600MG + VIT D 400 IU TAB PO SCH ×2 (09:18→20:50)
[2021-05-20] MEDS: POLYETHYLENE (MIRALAX) 17 GM PACK PO SCH (09:19)
[2021-05-20] MEDS: methylPREDNISolone 40 MG in SYRINGE 0 ML IV SCH ×2 (09:19→20:51)
[2021-05-20] MEDS: ONDANSETRON INJ 2 MG/ML 2 ML VIAL IV PRN (11:31)
[2021-05-20] MEDS: DIGOXIN 0.125 MG TAB PO SCH (15:45)
[2021-05-20] MEDS: FORMOTEROL 20 MCG/2 ML VIAL NEB SCH (19:25)
[2021-05-20] MEDS ORDERED: ALBUT/IPRATROP 3MG/0.5MG NEB 3 ML VIAL NEB PRN (20:47)
[2021-05-20] MEDS: ATORVASTATIN 40 MG TAB PO SCH (20:50)
[2021-05-20] MEDS: ALBUT/IPRATROP 3MG/0.5MG NEB 3 ML VIAL NEB SCH (21:11)
[2021-05-20] MEDS: cefTRIAXone SODIUM 2,000 MG in DEXTROSE 5% 50 ML IV SCH (23:59)
[2021-05-21] MEDS: AZITHROMYCIN 500 MG in DEXTROSE 5% 250 ML IV SCH (01:02)
[2021-05-21] MEDS: FORMOTEROL 20 MCG/2 ML VIAL NEB SCH ×2 (07:12→19:55)
[2021-05-21] MEDS: ALBUT/IPRATROP 3MG/0.5MG NEB 3 ML VIAL NEB SCH ×4 (07:12→19:55)
[2021-05-21 08:49] LABS: Hematocrit (blood only) 36.8 % (42-52); Hemoglobin 11.4 g/dL (14.0-18.0); Immature Granulocytes # (auto) 0.03 K/uL (0.00-0.02); Immature Granulocytes % (auto) 0.4 %; Lymphocytes # (auto) 0.52 K/uL (1.2-3.4); Lymphocytes % (auto) 6.1 %; Mean Corpuscular Hemoglobin 33.2 pg (25-34); Mean Corpuscular Volume 107.3 fL (80-100); Mean Platelet Volume 10.9 fL (7.4-10.4); Monocytes % (auto) 4.7 %; Neutrophils # (auto) 7.55 K/uL (1.4-6.5); Neutrophils % (auto) 88.8 %; Platelet Count 303 K/uL (130-400); RDW Coefficient of Variation 14.4 % (11.5-14.5); RDW Standard Deviation 56.2 fL (36.4-46.3); Red Blood Count 3.43 M/uL (4.7-6.1)
[2021-05-21 09:05] LABS: INR 4.2 (0.9-1.1); Prothrombin Time 37.7 Seconds (9.0-12.0)
[2021-05-21 09:16] LABS: Albumin Level 2.7 gm/dl (3.4-5.0); BUN Creatinine Ratio 36.4 (10-20); Calcium 9.3 mg/dl (8.5-10.1); Creatinine Clr Calc Pharmacy 67.9 ml/min; Est GFR (African American) 76.1 ml/min; Est GFR (Non-African American) 65.7 ml/min; Magnesium 2.7 mg/dl (1.8-2.4); Potassium 4.8 mmol/L (3.5-5.1)
[2021-05-21 09:19] LABS: Albumin Globulin Ratio 0.9 (0.9-2); Bilirubin,Total 0.2 mg/dl (0.2-1); Globulin 3.1 gm/dl (2.5-4.0); Total Protein 5.9 gm/dl (6.4-8.2)
[2021-05-21] MEDS: METOPROLOL TARTRATE 50 MG TAB PO SCH ×2 (09:21→20:22)
[2021-05-21] MEDS: CALCIUM 600MG + VIT D 400 IU TAB PO SCH ×2 (09:21→20:24)
[2021-05-21] MEDS: methylPREDNISolone 40 MG in SYRINGE 0 ML IV SCH ×2 (09:21→20:24)
[2021-05-21] MEDS: MULTIVITAMIN TAB PO SCH (09:22)
[2021-05-21] MEDS: dilTIAZem HCL 120 MG CAPCR PO SCH (09:22)
[2021-05-21] MEDS: PANTOprazole 40 MG TAB PO SCH ×2 (09:22→20:25)
[2021-05-21] MEDS: ASPIRIN 81 MG ECTAB PO SCH (09:22)
[2021-05-21] MEDS: POLYETHYLENE (MIRALAX) 17 GM PACK PO SCH (09:23)
[2021-05-21] MEDS: SENNA 8.6 MG TAB PO SCH (09:23)
[2021-05-21] MEDS: TAMSULOSIN HCL 0.4 MG CAP PO SCH (09:23)
[2021-05-21] MEDS: guaiFENesin 600 MG TABCR PO SCH ×2 (09:24→20:23)
[2021-05-21] MEDS: DIGOXIN 0.125 MG TAB PO SCH (16:02)
--- NOTE | 2021-05-21 18:43 | Hospitalist Progress Note ---
Date of Service May 21, 2021 Assessment & Plan (1) Chest pain: Plan: Pt had 3 negative troponin, chest pain secondary to possible pulmonary process (2) Bronchitis: Plan: Bronchitis/COPD-acute on chronic respiratory failure with hypoxia Methylprednisolone transtion to prednisone 05/22/21 Ceftriaxone 2 g IV daily Azithromycin 5 mg IV daily Duonebs every 4 hours while awake and every 2 hours when necessary. Guaifenesin extended release 1200 mg p.o. twice daily Nasal cannula oxygen, titrate to keep pulse ox around 95% (3) History of DVT (deep vein thrombosis): Plan: chronically anticoagulated , Continue warfarin. iniitally low and bridged with enoxaparin, then INR supratherapeutic held inr still high (4) Dyslipidemia: Plan: Continue atorvastatin (5) Permanent atrial fibrillation: Plan: rate controlled on metoprolol , diltiazem and digoxin (6) Sleep apnea: Plan: CPAP at at bedtime (7) COPD (chronic obstructive pulmonary disease): Plan: pt has chronic hypoxic respiratory failure chronically on 2.5 l nc (8) CAD (coronary artery disease): Plan: CAD/hypertension/PAF- Continue aspirin, digoxin, diltiazem, metoprolol tartrate and warfarin Admission and Anticipated Discharge Date Admission Date: May 20, 2021 Subjective pt seems to be improving but still with cough, otherwise no further chest pain Review of Systems Review of Systems: Mild to moderate respiratory distress and fatigue no headache, no visual changes no speech or swallowing issues no recurrence of chest pain, pressure or palpitations Worsening baseline shortness of breath cough productive of wells sputum no audible wheezes no abdominal pain, nausea or vomiting, diarrhea or constipation no dysuria, hematuria or frequency no focal joint pain or swelling no back pain, CVA tenderness or radicular pain no bruising, bleeding or rashes no focal signs of weakness or numbness or altered sensation no complaints of anxiety or depression.. Physical Exam Physical Exam: The patient appeared well nourished and normally developed. Vital signs as documented. Head exam is normocephalic atraumatic Neck is without JVD, thyromegaly, or carotid bruits. Lungs are air movement in all lung ponce diminished throughout no focal loss egophony or wheezes Cardiac exam, Rhythm is regular.. Systolic ejection murmur is heard Abdominal exam reveals normal bowel sounds, soft non tender, no masses Extremities are trace edema bilaterally and both pedal pulses are present Neurologic exam is alert and oriented, no focal loss of strength or sensation Skin is without bruises or rashes Psychologically is without concerns for anxiety or depression Results & Data Results & Data ([facility]) Vital Signs (Past 12 Hours) Vital Signs Temp Pulse Pulse Pulse Resp BP Pulse Ox 05/21/21 16:02 66 05/21/21 16:00 66 05/21/21 15:17 97.9 F 86 18 141/82 H 94 05/21/21 15:05 79 17 94 05/21/21 11:04 82 19 92 05/21/21 07:33 97.9 F 84 18 120/66 95 05/21/21 07:13 74 18 95 PG Care Time/CCT Total # of Minutes Spent Total Time Spent with Patient: Total time spent is greater than 50% in coordination of care (as documented) at patient's floor/unit and/or counseling patient: Coding Level of Care Code 62980 Subseq Hosp Care Lvl 2 Diagnoses Chest pain R07.9 Bronchitis J40 History of DVT (deep vein thrombosis) Z86.718 Dyslipidemia E78.5 Permanent atrial fibrillation I48.21 Sleep apnea G47.30 COPD (chronic obstructive pulmonary disease) J44.9 CAD (coronary artery disease) I25.10
[2021-05-21] MEDS: ATORVASTATIN 40 MG TAB PO SCH (20:22)
[2021-05-22] MEDS: cefTRIAXone SODIUM 2,000 MG in DEXTROSE 5% 50 ML IV SCH (00:10)
[2021-05-22] MEDS: AZITHROMYCIN 500 MG in DEXTROSE 5% 250 ML IV SCH (00:55)
[2021-05-22] MEDS: ALBUT/IPRATROP 3MG/0.5MG NEB 3 ML VIAL NEB SCH ×4 (07:16→19:03)
[2021-05-22] MEDS: FORMOTEROL 20 MCG/2 ML VIAL NEB SCH (07:33)
[2021-05-22] MEDS: POLYETHYLENE (MIRALAX) 17 GM PACK PO SCH (08:49)
[2021-05-22] MEDS: dilTIAZem HCL 120 MG CAPCR PO SCH (08:50)
[2021-05-22] MEDS: ASPIRIN 81 MG ECTAB PO SCH (08:50)
[2021-05-22] MEDS: CALCIUM 600MG + VIT D 400 IU TAB PO SCH ×2 (08:50→20:34)
[2021-05-22] MEDS: METOPROLOL TARTRATE 50 MG TAB PO SCH ×2 (08:51→20:34)
[2021-05-22] MEDS: guaiFENesin 600 MG TABCR PO SCH ×2 (08:51→20:33)
[2021-05-22] MEDS: MULTIVITAMIN TAB PO SCH (08:52)
[2021-05-22] MEDS: predniSONE 20 MG TAB PO SCH (08:52)
[2021-05-22] MEDS: SENNA 8.6 MG TAB PO SCH (08:52)
[2021-05-22] MEDS: PANTOprazole 40 MG TAB PO SCH ×2 (08:52→20:34)
[2021-05-22] MEDS: TAMSULOSIN HCL 0.4 MG CAP PO SCH (08:53)
[2021-05-22 08:58] LABS: Prothrombin Time 27.8 Seconds (9.0-12.0)
--- NOTE | 2021-05-22 10:28 | XRay Report ---
XR chest 1V portable HISTORY: hypoxia COMPARISON: Chest CTA 05/18/2021. FINDINGS: Progressive hazy airspace opacity within the right mid to lower lung zone with volume loss within the right hemithorax and a small right pleural effusion. There is a trace left pleural effusio n. Old, healed right-sided rib fractures. The heart remains enlarged. No pneumothorax. IMPRESSION: Progressive hazy airspace opacity within the right mid to lower lung zone with volume loss within the right hemithorax and a small right pleural effusion. This could represent atelectasis or pneumonia. ACT 112: Negative or not required by law. Electronically signed by: Juno Rivera M.D. 05/22/2021 10:27 AM
--- NOTE | 2021-05-22 11:54 | Hospitalist Progress Note ---
Date of Service May 22, 2021 Assessment & Plan (1) Chest pain: Plan: Resolved Pt had 3 negative troponin, chest pain secondary to bronchitis (2) Bronchitis: Plan: Bronchitis/COPD-acute on chronic respiratory failure with hypoxia Methylprednisolone transition to prednisone 05/22/21 Ceftriaxone 2 g IV daily Azithromycin - switch to PO 250mg (last day tomorrow) Duonebs every 4 hours while awake and every 2 hours when necessary. Guaifenesin extended release 1200 mg p.o. twice daily Nasal cannula oxygen, titrate to keep pulse ox around 90% Incentive spirometer + flutter valve - main ongoing problem is likely mucus plugging (3) History of DVT (deep vein thrombosis): Plan: chronically anticoagulated Continue warfarin. iniitally low and bridged with enoxaparin, then INR supratherapeutic due to azithromycin use. See below. (4) Dyslipidemia: Plan: Continue atorvastatin (5) Permanent atrial fibrillation: Plan: rate controlled on metoprolol , diltiazem and digoxin Anticoagulated on warfarin (6) Sleep apnea: Plan: BiPAP at at bedtime (7) COPD (chronic obstructive pulmonary disease): Plan: pt has chronic hypoxic respiratory failure chronically on 2.5 l nc Start Breo and Incruse Ellipta - follow up with pulmonology as outpatient (8) CAD (coronary artery disease): Plan: CAD/hypertension/PAF- Continue aspirin, metoprolol tartrate and warfarin Plan: VTE Prophylaxis - warfarin on hold due to INR elevated with recent azithromycin use. Will give 5mg PO today. Diet - heart healthy Disposition Admission and Anticipated Discharge Date Admission Date: May 20, 2021 Subjective Patient reports continued significant shortness of breath and coughing. He is short of breath all the time however. Previously on Spiriva 5-6 years ago. Stopped because he couldn't afford it. No current maintenance inhalers for his COPD. BiPAP machine at home fills up with water so he has not been using this. 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 Review of Systems Review of Systems: All systems reviewed & are unremarkable except as noted in HPI & below Respiratory: + cough and + dyspnea Cardiovascular: no chest pain Physical Exam Constitutional: well developed; + not well nourished and no acute distress Respiratory: + labored breathing, + uses accessory muscles and + prolonged expiratory phase; + abnormal respiratory effort Cardiovascular: Rate/Rhythm: regular rate and + irregularly irregular Extremities: normal capillary refill and + pedal edema (trace ankles b/l equal); no calf tenderness Gastrointestinal (Abdomen): normal bowel sounds, soft, nontender, no hepatosplenomegaly Skin: no rashes, warm and dry Neurologic: moves all extremities and awake; not confused Psychiatric: A+Ox3, euthymic affect Results & Data Results & Data ([facility]) Vital Signs (Past 12 Hours) Vital Signs Temp Pulse Resp BP Pulse Ox 05/22/21 11:03 88 18 95 05/22/21 07:33 36.8 C 98 H 18 104/56 L 98 05/22/21 07:17 104 H 18 95 PG Care Time/CCT Total # of Minutes Spent Total Time Spent with Patient: Total time spent is greater than 50% in coordination of care (as documented) at patient's floor/unit and/or counseling patient: Coding Level of Care Code 12496 Subseq Hosp Care Lvl 2 Diagnoses Chest pain R07.9 Bronchitis J40 History of DVT (deep vein thrombosis) Z86.718 Dyslipidemia E78.5 Permanent atrial fibrillation I48.21 Sleep apnea G47.30 COPD (chronic obstructive pulmonary disease) J44.9 CAD (coronary artery disease) I25.10
[2021-05-22] MEDS: UMECLIDINIUM BROMIDE 62.5MCG/BLISTER 7 PUFFS/INHALER INH SCH (14:28)
[2021-05-22] MEDS: FLUTICASONE/VILANTEROL 200/25MCG 14 PUFFS/INHALER INH SCH (14:29)
[2021-05-22] MEDS: DIGOXIN 0.125 MG TAB PO SCH (16:48)
[2021-05-22] MEDS: WARFARIN SOD 5 MG TAB PO SCH (18:21)
[2021-05-22] MEDS: ACETAMINOPHEN 325 MG TAB PO PRN (19:18)
[2021-05-22] MEDS: ONDANSETRON INJ 2 MG/ML 2 ML VIAL IV PRN (19:18)
[2021-05-22] MEDS: ATORVASTATIN 40 MG TAB PO SCH (20:34)
[2021-05-22] MEDS ORDERED: METOPROLOL TARTRATE 1 MG/ML VIAL IV STA (20:56)
[2021-05-22] MEDS ORDERED: SODIUM CHLORIDE 0.9% 1000ML 500 ML IV ONE (21:07)
[2021-05-22 21:08] LABS: Hematocrit (blood only) 35.7 % (42-52); Hemoglobin 11.2 g/dL (14.0-18.0); Mean Corpuscular Hemoglobin 32.7 pg (25-34); Mean Corpuscular Hgb Conc 31.4 g/dL (32-36); Mean Corpuscular Volume 104.4 fL (80-100); Mean Platelet Volume 11.3 fL (7.4-10.4); Platelet Count 297 K/uL (130-400); RDW Coefficient of Variation 14.4 % (11.5-14.5); RDW Standard Deviation 55.1 fL (36.4-46.3); Red Blood Count 3.42 M/uL (4.7-6.1); White Blood Count 7.79 K/uL (4.8-10.8)
[2021-05-22 21:35] LABS: BUN Creatinine Ratio 29.1 (10-20); Blood Urea Nitrogen 43 mg/dl (7-18); Calcium 9.6 mg/dl (8.5-10.1); Carbon Dioxide 33 mmol/L (21-32); Chloride 99 mmol/L (98-107); Creatinine Clr Calc Pharmacy 49.8 ml/min; Est GFR (African American) 52.3 ml/min; Est GFR (Non-African American) 45.1 ml/min; Glucose 152 mg/dl (70-99); Magnesium 2.5 mg/dl (1.8-2.4); Sodium 136 mmol/L (136-145)
[2021-05-22 21:40] LABS: Phosphorus 2.7 mg/dl (2.5-4.9); Troponin I < 0.015 ng/ml (0-0.045)
[2021-05-23] MEDS: cefTRIAXone SODIUM 2,000 MG in DEXTROSE 5% 50 ML IV SCH (00:26)
[2021-05-23] MEDS ORDERED: METOPROLOL TARTRATE 1 MG/ML VIAL IV STA (00:36)
[2021-05-23] MEDS: ALBUT/IPRATROP 3MG/0.5MG NEB 3 ML VIAL NEB SCH ×4 (07:23→18:56)
[2021-05-23 07:26] LABS: Eosinophils # (auto) 0.01 K/uL (0-0.5); Eosinophils % (auto) 0.1 %; Hematocrit (blood only) 36.5 % (42-52); Hemoglobin 11.3 g/dL (14.0-18.0); Immature Granulocytes # (auto) 0.02 K/uL (0.00-0.02); Immature Granulocytes % (auto) 0.3 %; Lymphocytes % (auto) 13.9 %; Mean Corpuscular Hemoglobin 32.5 pg (25-34); Mean Corpuscular Volume 104.9 fL (80-100); Mean Platelet Volume 11.1 fL (7.4-10.4); Monocytes # (auto) 0.76 K/uL (0.11-0.59); Monocytes % (auto) 10.6 %; Neutrophils # (auto) 5.41 K/uL (1.4-6.5); Neutrophils % (auto) 75.1 %; Platelet Count 279 K/uL (130-400); RDW Coefficient of Variation 14.5 % (11.5-14.5); Red Blood Count 3.48 M/uL (4.7-6.1)
[2021-05-23 07:35] LABS: INR 2.2 (0.9-1.1); Prothrombin Time 21.2 Seconds (9.0-12.0)
[2021-05-23 07:42] LABS: BUN Creatinine Ratio 33.8 (10-20); Calcium 9.4 mg/dl (8.5-10.1); Est GFR (African American) 69.8 ml/min; Est GFR (Non-African American) 60.2 ml/min
[2021-05-23] MEDS: TAMSULOSIN HCL 0.4 MG CAP PO SCH (08:04)
[2021-05-23] MEDS: CALCIUM 600MG + VIT D 400 IU TAB PO SCH ×2 (08:04→20:54)
[2021-05-23] MEDS: METOPROLOL TARTRATE 50 MG TAB PO SCH ×2 (08:05→20:52)
[2021-05-23] MEDS: PANTOprazole 40 MG TAB PO SCH ×2 (08:05→20:52)
[2021-05-23] MEDS: guaiFENesin 600 MG TABCR PO SCH ×2 (08:05→20:53)
[2021-05-23] MEDS: dilTIAZem HCL 120 MG CAPCR PO SCH (08:06)
[2021-05-23] MEDS: ASPIRIN 81 MG ECTAB PO SCH (08:06)
[2021-05-23] MEDS: MULTIVITAMIN TAB PO SCH (08:06)
[2021-05-23] MEDS: predniSONE 20 MG TAB PO SCH (08:06)
[2021-05-23] MEDS: FLUTICASONE/VILANTEROL 200/25MCG 14 PUFFS/INHALER INH SCH (08:07)
[2021-05-23] MEDS: SENNA 8.6 MG TAB PO SCH (08:07)
[2021-05-23] MEDS: UMECLIDINIUM BROMIDE 62.5MCG/BLISTER 7 PUFFS/INHALER INH SCH (08:08)
[2021-05-23] MEDS ORDERED: AZITHROMYCIN 250 MG TAB PO SCH (09:00)
[2021-05-23] MEDS ORDERED: DICLOFENAC SOD 1% GEL 100 GM TUBE EXT PRN (13:14)
--- NOTE | 2021-05-23 14:04 | XRay Report ---
RIGHT SHOULDER 3 VIEWS CLINICAL HISTORY: Fall several weeks ago. Increasing right shoulder pain. FINDINGS: 3 views of the right shoulder are obtained. No prior studies are available for comparison a t the time of dictation. The skeletal structures are osteopenic. There is no radiographic evidence of fracture or dislocation. The glenohumeral articulation is preserved. Productive degenerative change is noted at the acromioclavicular joint. Mild degenerative change is seen in the greater tuberosity o f the humeral head. There are chronic/healed right-sided rib fractures. The overlying soft tissues ar e within normal limits. The imaged right lung parenchyma appears clear. IMPRESSION: Osteopenia and mild degenerative change as above with no acute bony abnormality identifie d. Electronically signed by: Humberto Lynch M.D. 05/23/2021 2:03 PM
[2021-05-23] MEDS: LIDOCAINE 5% 1 PATCH TD SCH (15:11)
[2021-05-23] MEDS: POLYETHYLENE (MIRALAX) 17 GM PACK PO SCH (15:11)
[2021-05-23] MEDS: WARFARIN SOD 5 MG TAB PO SCH (15:12)
--- NOTE | 2021-05-23 15:18 | Electrocardiogram Report ---
Test Reason : Blood Pressure : / mmHG Vent. Rate : 131 BPM Atrial Rate : 129 BPM P-R Int : 000 ms QRS Dur : 100 ms QT Int : 254 ms P-R-T Axes : 000 049 198 degrees QTc Int : 375 ms Atrial fibrillation with rapid ventricular response Abnormal ECG When compared with ECG of 19-MAY-2021 03:02, Vent. rate has increased BY 58 BPM Criteria for Septal infarct are no longer Present ST no longer depressed in Inferior leads ST now depressed in Lateral leads Confirmed by Clayton Willis ([id number]) on 05/23/2021 3:18:05 PM Referred By: REFERRED SELF Confirmed By:Clayton Willis
[2021-05-23] MEDS: DIGOXIN 0.125 MG TAB PO SCH (15:40)
[2021-05-23] MEDS ORDERED: dilTIAZem HCL 120 MG CAPCR PO STA (17:47)
--- NOTE | 2021-05-23 17:52 | Hospitalist Progress Note ---
Date of Service May 23, 2021 Assessment & Plan (1) Chest pain: Plan: Resolved Pt had 3 negative troponin, chest pain secondary to bronchitis/costochondritis (2) Bronchitis: Plan: Bronchitis/COPD-acute on chronic respiratory failure with hypoxia Methylprednisolone transitioned to prednisone 05/22/21 Ceftriaxone 2 g IV daily Azithromycin - switch to PO 250mg (last day today) Duonebs every 4 hours while awake and every 2 hours when necessary. Guaifenesin extended release 1200 mg p.o. twice daily Nasal cannula oxygen, titrate to keep pulse ox around 90% Incentive spirometer + flutter valve - main ongoing problem is likely mucus plugging (3) History of DVT (deep vein thrombosis): Plan: chronically anticoagulated Continue warfarin. iniitally low and bridged with enoxaparin, then INR supratherapeutic due to azithromycin use. See below. (4) Dyslipidemia: Plan: Continue atorvastatin (5) Permanent atrial fibrillation: Plan: Metoprolol, diltiazem and digoxin. Rate 100-140. Moved to telemetry overnight. Will increase diltiazem CD to 240mg PO daily (additional 120mg give today) Anticoagulated on warfarin (6) Sleep apnea: Plan: BiPAP at at bedtime (7) COPD (chronic obstructive pulmonary disease): Plan: pt has chronic hypoxic respiratory failure chronically on 2.5 l nc Start Breo and Incruse Ellipta - follow up with pulmonology as outpatient (8) CAD (coronary artery disease): Plan: CAD/hypertension/PAF- Continue aspirin, metoprolol tartrate and warfarin (9) Shoulder pain, left: Plan: Shoulder XR. PT. Not a surgical candidate for any rotator cuff injury but would follow up with orthopedics for possible joint injection. Lidocaine patch, diclofenac gel, acetaminophen Most of his pain on exam appears to be trapezius muscle spasm Plan: VTE Prophylaxis - Continue reduced dose of 5mg PO while on azithrmycin, can resume usual dosing tomorrow. Diet - heart healthy Disposition - continue on med/tele due to RVR Admission and Anticipated Discharge Date Admission Date: May 20, 2021 Subjective Patient moved to telemetry overnight due to rapid atrial fibrillation Multiple ongoing problems noted by patient: Shoulder and chest pain - reports started at [facility] when he was doing physical rehabilitation. "feels like I have dislocated my shoulder". Difficulty raising his right arm above his head. Previously refused my offer of PT yesterday but accepting of this today. Pain is worse on palpation. shoots down from neck to elbow but no worse on lateral rotation of his neck. Also continues to complain of shortness of breath. I am unclear on the chronicity of this. He has chronically used oxygen for years and reports getting short of breath just moving around his trailer but is also concerned he is worse than his baseline. Ongoing nausea after eating - this was evaluated in some detail last admission, he continues to eat well however. Discussed with insurance case manager Kandy Garay - reportedly fluid in his CPAP/BiPAP is saliva, this is confirmed with his . Review of Systems Review of Systems: All systems reviewed & are unremarkable except as noted in HPI & below Physical Exam Constitutional: well developed; + not well nourished and no acute distress Respiratory: + uses accessory muscles and + prolonged expiratory phase; + abnormal respiratory effort and no labored breathing Auscultation: + diminished lung sounds (reduced throughout); no crackles and no wheezes Cardiovascular: Rate/Rhythm: + tachycardic and + irregularly irregular Extremities: normal capillary refill and + pedal edema (trace ankles b/l equal); no calf tenderness Gastrointestinal (Abdomen): normal bowel sounds, soft, nontender, no hepatosplenomegaly Skin: no rashes, warm and dry Neurologic: moves all extremities and awake; not confused Psychiatric: A+Ox3, euthymic affect Results & Data Results & Data ([facility]) Vital Signs (Past 12 Hours) Vital Signs Temp Pulse Pulse Resp BP BP Pulse Ox 05/23/21 15:40 113 H 05/23/21 15:22 76 18 97 05/23/21 15:10 36.3 C L 113 H 24 146/78 H 98 05/23/21 12:34 36.3 C L 101 H 20 124/75 99 05/23/21 11:07 89 18 95 05/23/21 08:01 36.5 C 92 H 18 111/76 97 05/23/21 07:24 50 L 16 98 PG Care Time/CCT Total # of Minutes Spent Total Time Spent with Patient: Total time spent is greater than 50% in coordin ation of care (as documented) at patient's floor/unit and/or counseling patient: Coding Level of Care Code 63461 Subseq Hosp Care Lvl 2 Diagnoses Chest pain R07.9 Bronchitis J40 History of DVT (deep vein thrombosis) Z86.718 Dyslipidemia E78.5 Permanent atrial fibrillation I48.21 Sleep apnea G47.30 COPD (chronic obstructive pulmonary disease) J44.9 CAD (coronary artery disease) I25.10 Shoulder pain, left M25.512
[2021-05-23] MEDS: ACETAMINOPHEN 325 MG TAB PO PRN (18:35)
[2021-05-23] MEDS: ATORVASTATIN 40 MG TAB PO SCH (20:54)
[2021-05-24] MEDS: cefTRIAXone SODIUM 2,000 MG in DEXTROSE 5% 50 ML IV SCH ×2 (00:21→23:19)
[2021-05-24] MEDS: ALBUT/IPRATROP 3MG/0.5MG NEB 3 ML VIAL NEB SCH ×2 (07:13→10:45)
[2021-05-24 07:20] LABS: INR 2.2 (0.9-1.1); Prothrombin Time 20.8 Seconds (9.0-12.0)
[2021-05-24 07:38] LABS: BUN Creatinine Ratio 35.2 (10-20); Calcium 9.3 mg/dl (8.5-10.1); Creatinine Clr Calc Pharmacy 68.5 ml/min; Est GFR (African American) 75.3 ml/min; Est GFR (Non-African American) 64.9 ml/min; Potassium 4.9 mmol/L (3.5-5.1)
[2021-05-24] MEDS: LIDOCAINE 5% 1 PATCH TD SCH (08:13)
[2021-05-24] MEDS: SENNA 8.6 MG TAB PO SCH (08:13)
[2021-05-24] MEDS: ASPIRIN 81 MG ECTAB PO SCH (08:14)
[2021-05-24] MEDS: FUROSEMIDE 80 MG TAB PO SCH (08:14)
[2021-05-24] MEDS: guaiFENesin 600 MG TABCR PO SCH ×2 (08:16→21:02)
[2021-05-24] MEDS: predniSONE 20 MG TAB PO SCH (08:16)
[2021-05-24] MEDS: CALCIUM 600MG + VIT D 400 IU TAB PO SCH ×2 (08:16→21:03)
[2021-05-24] MEDS: TAMSULOSIN HCL 0.4 MG CAP PO SCH (08:17)
[2021-05-24] MEDS: PANTOprazole 40 MG TAB PO SCH ×2 (08:17→21:01)
[2021-05-24] MEDS: UMECLIDINIUM BROMIDE 62.5MCG/BLISTER 7 PUFFS/INHALER INH SCH (08:18)
[2021-05-24] MEDS: FLUTICASONE/VILANTEROL 200/25MCG 14 PUFFS/INHALER INH SCH (08:18)
[2021-05-24] MEDS: MULTIVITAMIN TAB PO SCH (08:19)
[2021-05-24] MEDS: METOPROLOL TARTRATE 50 MG TAB PO SCH ×2 (08:41→21:01)
[2021-05-24] MEDS ORDERED: dilTIAZem HCL 240 MG CAPCR PO SCH (09:00)
[2021-05-24] MEDS ORDERED: dilTIAZem ER 120 MG CAPCR PO SCH (09:00)
--- NOTE | 2021-05-24 12:32 | Electrocardiogram Report ---
Test Reason : Blood Pressure : / mmHG Vent. Rate : 052 BPM Atrial Rate : 074 BPM P-R Int : 000 ms QRS Dur : 114 ms QT Int : 340 ms P-R-T Axes : 000 023 215 degrees QTc Int : 316 ms Atrial fibrillation with slow ventricular response Abnormal ECG When compared with ECG of 22-MAY-2021 20:44, Ventricular response has slowed Confirmed by Clayton Willis ([id number]) on 05/24/2021 12:31:28 PM Referred By: REFERRED SELF Confirmed By:Clayton Willis
--- NOTE | 2021-05-24 14:10 | Hospitalist Progress Note ---
Date of Service May 24, 2021 Assessment & Plan (1) Chest pain: Plan: Resolved Pt had 3 negative troponin, chest pain secondary to bronchitis/costochondritis (2) Bronchitis: Plan: Bronchitis/COPD-acute on chronic respiratory failure with hypoxia Methylprednisolone transitioned to prednisone 05/22/21, will start to taper this Ceftriaxone 2 g IV daily (finish 05/25) Azithromycin - switch to PO 250mg, now finished Duonebs every 4 hours while awake and every 2 hours when necessary. Guaifenesin extended release 1200 mg p.o. twice daily Nasal cannula oxygen, titrate to keep pulse ox around 90% Incentive spirometer + flutter valve - main ongoing problem is likely mucus plugging (3) Chronic heart failure with preserved ejection fraction: Plan: Furosemide not continued since admission. Possible reason he is so short of breath given worsening CXR. Will restart on his usual dose today. Weights and I&Os have not been accurately recorded. (4) History of DVT (deep vein thrombosis): Plan: chronically anticoagulated Continue warfarin. iniitally low and bridged with enoxaparin, then INR supratherapeutic due to azithromycin use. See below. (5) Dyslipidemia: Plan: Continue atorvastatin (6) Permanent atrial fibrillation: Plan: Metoprolol, diltiazem and digoxin. Pauses overnight on increased dose of diltiazem however his rate was better controlled. Discussed with Dr Willis and given pause < 3.5 seconds will continue on increased dose. Start diltiazem CD 240mg PO daily tomorrow Anticoagulated on warfarin (7) Sleep apnea: Plan: BiPAP at at bedtime - patient is not compliant with this here or at home (8) COPD (chronic obstructive pulmonary disease): Plan: pt has chronic hypoxic respiratory failure chronically on 2.5 l nc Start Breo and Incruse Ellipta - follow up with pulmonology as outpatient (9) CAD (coronary artery disease): Plan: CAD/hypertension/PAF- Continue aspirin, metoprolol tartrate and warfarin (10) Shoulder pain, left: Plan: Shoulder XR. PT. Not a surgical candidate for any rotator cuff injury but would follow up with orthopedics for possible joint injection. Lidocaine patch, diclofenac gel, acetaminophen Most of his pain on exam appears to be trapezius muscle spasm Plan: VTE Prophylaxis - Continue reduced dose of 5mg PO while on azithromycin, can resume usual dosing tomorrow. Diet - heart healthy Disposition - continue on med/tele due to RVR Admission and Anticipated Discharge Date Admission Date: May 20, 2021 Subjective Pause of 3 seconds overnight after extra 120mg diltiazem CD given yesterday due to a. fib RVR. Trapezius pain similar to yesterday. Shoulder XR without acute pathology. Not much relief from lidocaine patch or diclofenac gel. Continued shortness of breath - maintenance inhalers and steroids have improved this from admission but he reports not back to his baseline. No chest pain today. Review of Systems Review of Systems: All systems reviewed & are unremarkable except as noted in HPI & below Physical Exam Constitutional: well developed; + not well nourished and no acute distress Respiratory: + uses accessory muscles and + prolonged expiratory phase; + abnormal respiratory effort and no labored breathing Auscultation: + diminished lung sounds (reduced throughout); no crackles and no wheezes Cardiovascular: Rate/Rhythm: + tachycardic and + irregularly irregular Extremities: normal capillary refill and + pedal edema (trace ankles b/l equal); no calf tenderness Gastrointestinal (Abdomen): normal bowel sounds, soft, nontender, no hepatosplenomegaly Skin: no rashes, warm and dry Neurologic: moves all extremities and awake; not confused Psychiatric: A+Ox3, euthymic affect Results & Data Results & Data ([facility]) Vital Signs (Past 12 Hours) Vital Signs Temp Pulse Pulse Resp BP Pulse Ox 05/24/21 12:00 36.4 C L 82 20 124/65 92 05/24/21 10:46 91 H 18 96 05/24/21 08:00 35.9 C L 91 H 20 134/74 100 05/24/21 07:14 76 18 94 05/24/21 06:56 72 05/24/21 02:48 36.4 C L 85 18 149/73 H 96 PG Care Time/CCT Total # of Minutes Spent Total Time Spent with Patient: Total time spent is greater than 50% in coordination of care (as documented) at patient's floor/unit and/or counseling patient: Coding Level of Care Code 39185 Subseq Hosp Care Lvl 2 Diagnoses Chest pain R07.9 Bronchitis J40 History of DVT (deep vein thrombosis) Z86.718 Dyslipidemia E78.5 Permanent atrial fibrillation I48.21 Sleep apnea G47.30 COPD (chronic obstructive pulmonary disease) J44.9 CAD (coronary artery disease) I25.10 Shoulder pain, left M25.512 Chronic heart failure with preserved ejection fraction I50.32
[2021-05-24] MEDS: POLYETHYLENE (MIRALAX) 17 GM PACK PO SCH (16:46)
[2021-05-24] MEDS: DIGOXIN 0.125 MG TAB PO SCH (16:47)
[2021-05-24] MEDS: WARFARIN SOD 5 MG TAB PO SCH (16:48)
[2021-05-24] MEDS: ATORVASTATIN 40 MG TAB PO SCH (21:03)
[2021-05-25 07:03] LABS: BUN Creatinine Ratio 45.8 (10-20); Calcium 8.9 mg/dl (8.5-10.1); Creatinine Clr Calc Pharmacy 78.4 ml/min; Est GFR (Non-African American) 76.8 ml/min; Potassium 4.2 mmol/L (3.5-5.1)
--- NOTE | 2021-05-25 07:10 | XRay Report ---
XR chest 1V portable CLINICAL HISTORY: SOB COMPARISON STUDY: Chest CT May 18, 2021. Chest radiograph May 22, 2021. FINDINGS: Cardiomegaly is unchanged. There are multiple old right rib fractures. Small right pleural effusion is unchanged. Right mid and lower lung airspace opacity persists. Mild left basilar opacity is unchanged. Right lung volume loss is unchanged. IMPRESSION: 1. No change in right mid and lower lung airspace opacity which may reflect pneumonia or atelectasis. 2. Small right pleural effusion. 3. Cardiomegaly. No evidence for pulmonary edema. ACT 112: Negative or not required by law. Electronically signed by: Rafy Flowers M.D. 05/25/2021 7:08 AM
[2021-05-25 07:13] LABS: INR 2.3 (0.9-1.1); Prothrombin Time 21.5 Seconds (9.0-12.0)
[2021-05-25] MEDS: LIDOCAINE 5% 1 PATCH TD SCH (08:14)
[2021-05-25] MEDS: FUROSEMIDE 80 MG TAB PO SCH (08:15)
[2021-05-25] MEDS: MULTIVITAMIN TAB PO SCH (08:15)
[2021-05-25] MEDS: CALCIUM 600MG + VIT D 400 IU TAB PO SCH (08:15)
[2021-05-25] MEDS: METOPROLOL TARTRATE 50 MG TAB PO SCH (08:15)
[2021-05-25] MEDS: PANTOprazole 40 MG TAB PO SCH (08:15)
[2021-05-25] MEDS: guaiFENesin 600 MG TABCR PO SCH (08:15)
[2021-05-25] MEDS: TAMSULOSIN HCL 0.4 MG CAP PO SCH (08:16)
[2021-05-25] MEDS: SENNA 8.6 MG TAB PO SCH (08:16)
[2021-05-25] MEDS: ASPIRIN 81 MG ECTAB PO SCH (08:16)
[2021-05-25] MEDS: FLUTICASONE/VILANTEROL 200/25MCG 14 PUFFS/INHALER INH SCH (08:16)
[2021-05-25] MEDS: UMECLIDINIUM BROMIDE 62.5MCG/BLISTER 7 PUFFS/INHALER INH SCH (08:17)
[2021-05-25] MEDS ORDERED: predniSONE 10 MG TABLET PO SCH (09:00)
[2021-05-25] MEDS ORDERED: dilTIAZem HCL 240 MG CAPCR PO SCH (09:00)
--- NOTE | 2021-05-25 09:09 | Hospitalist Progress Note ---
Date of Service May 25, 2021 Assessment & Plan (1) Chest pain: Plan: Resolved Pt had 3 negative troponin, chest pain secondary to bronchitis/costochondritis (2) Bronchitis: Plan: Bronchitis/COPD-acute on chronic respiratory failure with hypoxia Methylprednisolone transitioned to prednisone 05/22/21, will start to taper this Ceftriaxone 2 g IV daily (finish 05/25) Azithromycin - switch to PO 250mg, now finished Duonebs every 4 hours while awake and every 2 hours when necessary. Guaifenesin extended release 1200 mg p.o. twice daily Nasal cannula oxygen, titrate to keep pulse ox around 90% Incentive spirometer + flutter valve - main ongoing problem is likely mucus plugging (3) Chronic heart failure with preserved ejection fraction: Plan: Furosemide not continued since admission. Possible reason he is so short of paige th given worsening CXR. Will restart on his usual dose today. Weights and I&Os have not been accurately recorded. (4) History of DVT (deep vein thrombosis): Plan: chronically anticoagulated Continue warfarin. iniitally low and bridged with enoxaparin, then INR supratherapeutic due to azithromycin use. See below. (5) Dyslipidemia: Plan: Continue atorvastatin (6) Permanent atrial fibrillation: Plan: Metoprolol, diltiazem and digoxin. Pauses overnight on increased dose of diltiazem however his rate was better controlled. Discussed with Dr Willis and given pause < 3.5 seconds will continue on increased dose. Start diltiazem CD 240mg PO daily tomorrow Anticoagulated on warfarin (7) Sleep apnea: Plan: BiPAP at at bedtime - patient is not compliant with this here or at home (8) COPD (chronic obstructive pulmonary disease): Plan: pt has chronic hypoxic respiratory failure chronically on 2.5 l nc Start Breo and Incruse Ellipta - follow up with pulmonology as outpatient (9) CAD (coronary artery disease): Plan: CAD/hypertension/PAF- Continue aspirin, metoprolol tartrate and warfarin (10) Shoulder pain, left: Plan: Shoulder XR. PT. Not a surgical candidate for any rotator cuff injury but would follow up with orthopedics for possible joint injection. Lidocaine patch, diclofenac gel, acetaminophen Most of his pain on exam appears to be trapezius muscle spasm Plan: VTE Prophylaxis - Continue reduced dose of 5mg PO while on azithromycin, can r esume usual dosing tomorrow. Diet - heart healthy Disposition - continue on med/tele due to RVR Admission and Anticipated Discharge Date Admission Date: May 20, 2021 Subjective Pause of 3 seconds overnight after extra 120mg diltiazem CD given yesterday due to a. fib RVR. Trapezius pain similar to yesterday. Shoulder XR without acute pathology. Not much relief from lidocaine patch or diclofenac gel. Continued shortness of breath - maintenance inhalers and steroids have improved this from admission but he reports not back to his baseline. No chest pain today. Results & Data Results & Data ([facility]) Vital Signs (Past 12 Hours) Vital Signs Temp Pulse Pulse Resp BP BP Pulse Ox 05/25/21 08:00 36.4 C L 88 20 142/66 H 95 05/25/21 02:02 78 18 145/97 H 96 05/24/21 22:45 89 05/24/21 22:42 36.4 C L 71 18 144/80 H 93 Laboratory Results 05/23/21 07:11 05/25/21 05:58 INR 2.3 (0.9-1.1) H 05/25/21 05:58 Diagnostic Findings Chest X-Ray 05/25/21 02:15 XR chest 1V portable CLINICAL HISTORY: SOB COMPARISON STUDY: Chest CT May 18, 2021. Chest radiograph May 22, 2021. FINDINGS: Cardiomegaly is unchanged. There are multiple old right rib fractures. Small right pleural effusion is unchanged. Right mid and lower lung airspace opacity persists. Mild left basilar opacity is unchanged. Right lung volume loss is unchanged. IMPRESSION: 1. No change in right mid and lower lung airspace opacity which may reflect pneumonia or atelectasis. 2. Small right pleural effusion. 3. Cardiomegaly. No evidence for pulmonary edema. ACT 112: Negative or not required by law. Electronically signed by: Rafy Flowers M.D. 05/25/2021 7:08 AM PG Care Time/CCT Total # of Minutes Spent Total Time Spent with Patient: Total time spent is greater than 50% in coordination of care (as documented) at patient's floor/unit and/or counseling patient: Coding Diagnoses Chest pain R07.9 Bronchitis J40 Chronic heart failure with preserved ejection fraction I50.32 History of DVT (deep vein thrombosis) Z86.718 Dyslipidemia E78.5 Permanent atrial fibrillation I48.21 Sleep apnea G47.30 COPD (chronic obstructive pulmonary disease) J44.9 CAD (coronary artery disease) I25.10 Shoulder pain, left M25.512
[2021-05-25] MEDS: POLYETHYLENE (MIRALAX) 17 GM PACK PO SCH (10:33)
--- NOTE | 2021-05-25 15:16 | Discharge Summary ---
Date of Service May 25, 2021 Admission HPI Per Admitting Provider The patient is a 80-year-old male with a past medical history including prostate cancer, urinary tract infection, history of DVT, fatigue, renal insufficiency, dyslipidemia, sleep apnea, chronic hypoxemic respiratory failure, hypercholesterolemia, COPD, CAD, chronic heart failure, atrial fib with RVR, hypertension, depression and mild CHF. The patient presents to the emergency department with symptoms as noted above. Admission Exam Per Admitting Provider The patient is awake, alert and oriented 3, well developed and well nourished, normocephalic and atraumatic, lying in bed and in no acute distress. HEENT--PERRL, EOMI, mucous membranes and oropharynx normal Neck--supple. No JVD. No bruits. Thyroid normal, trachea midline, no kavita opathy. Heart--normal S1 and S2. No murmurs, rubs or gallops. Lungs--few crackles at the bases bilaterally. No respiratory distress, no accessory muscle use. Abdomen--normal bowel sounds and soft. Nontender. Nondistended. Morbid obesity Extremities--no cyanosis or clubbing. No edema. Dermatologic--normal skin turgor, normal color, no abnormal lymph nodes, no rash. Neurologic--cranial nerves II through XII grossly intact. Rheumatologic--normal range of motion. Psychiatric--normal affect. Principal Diagnosis Chest pain and shortness of breath Discharge Exam GENERAL : No acute distress. Patient is slightly cantankerous EYES: No icterus, gaze conjugate NOSE: No evidence of epistaxis MOUTH: No lesions or candidiasis. Mucosa moist NECK: Supple LUNGS: Bibasilar fine crackles. No appreciation of wheezes or rhonchi HEART: Irregular, irregular, rate controlled at 61 bpm ABDOMEN: Soft, NT, ND, BS Present EXTREMITIES: No LE edema, pedal pulses intact and equal bilaterally NEURO: A&OX3 Discharge Data Allergies Allergy/AdvReac Type Severity Reaction Status Date / Time acetazolamide Allergy Intermediate swelling Verified 05/18/21 19:15 [From Diamox Sequels] Consultations 05/18/21 18:47 ED Decision to Admit Stat Ordered Studies 05/18/21 17:27 CT angio chest PE protocol Stat CT angio chest PE protocol CT DOSE: 743.60 mGy.cm HISTORY: 80 years-old Male with PE. Acute shortness of breath TECHNIQUE: Multiple CTA images of the chest were obtained after the intravenous administration of 117 ml Optiray. Coronal and sagittal MIPS were obtained from the axial data set and were submitted for review. All measurements were obtained according to NASCET criteria. A dose lowering technique was utilized adhering to the principles of ALARA. COMPARISON: Chest radiograph of same day, CTA chest 10/25/2013 FINDINGS: CTA: Marked cardiomegaly with moderate to extensive coronary artery calcifications. Mild ectasia of the ascending thoracic aorta measures 3.6 cm. No aneurysm. Moderate associated atherosclerosis. Dilated pulmonary artery measures up to 2.2 cm suggestive of pulmonary artery hypertension. No filling defects to suggest thromboembolic disease. CT CHEST: No thyroid nodule. Prominent paratracheal and subcarinal lymph nodes measuring up to 9 mm are likely reactive. Trace left and small right pleural effusion. No pneumothorax. Moderate bronchial wall thickening with multifocal mucus plugging. Right greater left bibasilar groundglass densities with linear areas of subsegmental consolidation. No suspicious pulmonary nodules or masses. Mild nonspecific distal esophageal wall thickening. Colonic diverticulosis. Unremarkable soft tissues. Chronic bilateral rib fractures. IMPRESSION: 1. Cardiomegaly with suggested pulmonary artery hypertension. No pulmonary emboli. 2. Moderate bronchial wall thickening suggestive of bronchitis or reactive airwa y disease with multifocal mucus plugging. 3. Trace left and small right pleural effusions with bibasilar opacities suggestive of atelectasis. 4. Additional findings as above. ACT 112: Negative or not required by law. The above report was generated using voice recognition software. It may contain grammatical, syntax or spelling errors. Electronically signed by: Mendoza Melton M.D. 05/18/2021 6:40 PM XR chest 1V portable CLINICAL HISTORY: SOB COMPARISON STUDY: Chest CT May 18, 2021. Chest radiograph May 22, 2021. FINDINGS: Cardiomegaly is unchanged. There are multiple old right rib fractures. Small right pleural effusion is unchanged. Right mid and lower lung airspace opacity persists. Mild left basilar opacity is unchanged. Right lung volume loss is unchanged. IMPRESSION: 1. No change in right mid and lower lung airspace opacity which may reflect pneumonia or atelectasis. 2. Small right pleural effusion. 3. Cardiomegaly. No evidence for pulmonary edema. ACT 112: Negative or not required by law. Electronically signed by: Rafy Flowers M.D. 05/25/2021 7:08 AM Hospital Course (1) Chest pain: Resolved Pt had 3 negative troponin, chest pain secondary to bronchitis/costochondritis Will discharge with lidocaine patch and diclofenac gel (2) Bronchitis: Bronchitis/COPD-acute on chronic respiratory failure with hypoxia Methylprednisolone transitioned to prednisone 05/22/21, will start to taper this Ceftriaxone 2 g IV daily (finish 05/25) Azithromycin - switch to PO 250mg, now finished Duonebs every 4 hours while awake and every 2 hours when necessary. Guaifenesin extended release 1200 mg p.o. twice daily Nasal cannula oxygen, titrate to keep pulse ox around 90% Incentive spirometer + flutter valve - main ongoing problem is likely mucus plugging Encouraged patient to use flutter valve and incentive spirometer on discharge (3) Chronic heart failure with preserved ejection fraction: Furosemide held on admission. This was resumed the day prior to discharge. Sent home on usual dose of 80 mg p.o. daily Weights and I&Os have not been accurately recorded. Encourage patient to follow with the congestive heart failure clinic with Hannah Ackerman PA-C. Patient indicated that he has no interest in following with cardiology or any other specialty service. Follow-up with JONATHAN Hinton at [facility] (4) History of DVT (deep vein thrombosis): chronically anticoagulated Continue warfarin. INR therapeutic on day of discharge (5) Dyslipidemia: Continue atorvastatin (6) Permanent atrial fibrillation: Metoprolol, diltiazem and digoxin. Pauses overnight on increased dose of diltiazem however his rate was better controlled. Discussed with Dr Willis and given pause < 3.5 seconds will continue on increased dose. Started diltiazem CD 240mg. Patient with positives as listed above as well some bradycardia. Discharged home on home dose of 120 mg daily Continue anticoagulation with warfarin (7) Sleep apnea: BiPAP at at bedtime is prescribed Patient refuses to use CPAP, BiPAP or any other assistive device Discussed risk of sudden cardiac . Patient stated understanding (8) COPD (chronic obstructive pulmonary disease): pt has chronic hypoxic respiratory failure chronically on 2.5 l nc Start Breo and Incruse Ellipta - follow up with pulmonology as outpatient Will send prescription to [facility] patient for conserving device as an outpatient (9) CAD (coronary artery disease): CAD/hypertension/PAF- Continue aspirin, metoprolol tartrate and warfarin on discharge (10) Shoulder pain, left: Shoulder XR. PT. Not a surgical candidate for any rotator cuff injury but would follow up with orthopedics for possible joint injection. Discharged with Rx for lidocaine patch, diclofenac gel. Advised patient that he can continue to use Tylenol Most of his pain on exam appears to be trapezius muscle spasm Further outpatient management with PCP DVT prophylaxis -patient therapeutic on warfarin. Encourage ambulation Diet - heart healthy Disposition -patient refusing cardiology consult or cardiology recommendations. Discharge home with outpatient follow-up with primary care physician. Patient refusing referral to CHF clinic or cardiology office. Total Time Total Time Spent Total Time Spent (In Minutes): 50 minutes Discharge Plan Discharge Items Patient Disposition: Home - Home Health Services Reason For Visit: CHEST TIGHTNESS, SOB Discharge Diagnosis: Chest tightness, shortness of breath Activity: Resume your previous activity Lifting: Gradually increase as tolerated Bathing: No limitations Exercise/Sports: Gradually increase as tolerated Weightbearing: Full weightbearing Non-emergency contact: Primary Care Provider Call non-emergency contact if: you have any medication questions and your symptoms worsen Follow-up/Referrals: Andie Peace CRNP [Primary Care Provider] - 06/01/21 10:30 am Keon Ponce MD [Physician] - 06/26/21 11:00 am Diet: Heart Healthy Addtl Attending Provider Instructions: Your admitted with shortness of breath and chest pain. Your troponin which is an enzyme that measures at this heart damage was negative this admission with a count less than 0.015. All of your electrolytes were balanced. You were found to have evidence of congestive heart failure with [place]BNP [place] 7775. This value should be below 1800. You should continue your Lasix as ordered at home. It is recommended that you follow-up with cardiology and specifically with the congestive heart failure clinic with Hannah Illig, PA-C. During the hospital stay it was advised that you be seen by cardiology due to 3- second pauses under telemetry. He also had 1 run of fast heartbeat called ventricular tachycardia. You should follow-up with cardiology as an outpatient to have these issues followed on a regular basis. Continue with all your prescribed medications as ordered. Feel free to follow- up with cardiology as needed. You should also follow-up with JONATHAN Hinton as scheduled. Pending Studies at Discharge: No Stand-Alone Forms: My [facility] Medications and DC Order Prescriptions: New diclofenac sodium 1 % gel 2 g topical Q12H MDD 4 g PRN (Reason: Shoulder pain) Qty: 100 RF: 0 ZTlido 1.8 % adhesive patch,medicated 1 patch topical DAILY Qty: 30 RF: 0 Trelegy Ellipta 100-62.5-25 mcg blister with device 1 inh inhalation DAILY Qty: 60 RF: 0 Continued aspirin [Ecotrin Low Strength] 81 mg tablet,delayed release (DR/EC) 81 mg PO QAM Qty: 30 RF: 0 furosemide [Lasix] 80 mg tablet 80 mg PO QAM Qty: 30 RF: 3 potassium chloride [Klor-Con M20] 20 mEq tablet,ER particles/crystals 20 meq PO BID Qty: 60 RF: 1 multivitamin [Daily Multi-Vitamin] tablet 1 tab PO QAM RF: 0 calcium carbonate-vitamin D3 [Calcium 500 + D] 500 mg(1,250mg) -400 unit tablet 500 tab PO BID RF: 0 atorvastatin 40 mg Tablet 40 mg PO HS Qty: 30 RF: 5 digoxin [Digitek] 125 mcg (0.125 mg) Tablet 125 mcg PO DAILY@1600 Qty: 30 RF: 5 diltiazem HCl 120 mg Capsule,Extended Release 24hr 120 mg PO QAM Qty: 30 RF: 5 acetaminophen 325 mg Tablet 650 mg PO Q4H PRN (Reason: pain) Qty: 30 RF: 0 pantoprazole 40 mg Tablet,Delayed Release (Dr/Ec) 40 mg PO BID Qty: 60 RF: 2 sennosides [Senokot] 8.6 mg Tablet 17.2 mg PO QAM Qty: 60 RF: 0 nystatin [Nystop] 100,000 unit/gram Powder 1 applic EXT TID Qty: 30 RF: 1 ipratropium-albuterol 0.5 mg-3 mg(2.5 mg base)/3 mL solution for nebulization 3 ml INHALATION Q4H PRN (Reason: shortness of breath) Qty: 90 RF: 4 metoprolol tartrate [Lopressor] 50 mg tablet 150 mg PO BID Qty: 0 RF: 0 tamsulosin [Flomax] 0.4 mg capsule 0.4 mg PO DAILY Qty: 30 RF: 2 warfarin 10 mg tablet 7.5 - 10 mg PO UD RF: 0 Discontinued cephalexin 500 mg capsule 500 mg PO BID RF: 0 Discharge Orders: Discharge Order (Routine); Ordered 05/25/21 Ordered By: Humberto Ford/Other Patient Handouts: Understanding Atrial Fibrillation Admission Data Admit Date/Time: 05/20/21 18:10 Attending Provider: Mansoor Aden Admit Provider: Reji Brooke Primary Care Provider: Andie Peace Other Providers: Thompson,Home Care ; Reji Brooke Other Interventions: Discharge Summary Assessment (RN) Last Done: 05/25/21 18:05 Supervising Physician Co-Signing Physician Notes Patient seen and examined, chart reviewed, case discussed with Humberto Leiva PA-C and I agree with the assessment and plan as above. On discussion prior to d/c pt refuses bipap, cardiology followup. General: A&Ox3. NAD. HEENT: Atraumatic, normocephalic. Visual acuity and hearing grossly intact. Pulm: CTAB A&P. -wheezes, -rales, -rhonchi. Symmetrical chest rise. No increase work of breathing. No respiratory distress. Cardiac: irregularly irregular, -mrg. Radial pulses intact and symmetrical. Abdominal: Nontender, nondistended, soft. BS present. Ext: Moving all extremities equally All labs and images reviewed Coding Level of Care Code D/C DAY MANAGEMENT >30 MINS Diagnoses Chest pain R07.9 Bronchitis J40 Chronic heart failure with preserved ejection fraction I50.32 History of DVT (deep vein thrombosis) Z86.718 Dyslipidemia E78.5 Permanent atrial fibrillation I48.21 Sleep apnea G47.30 COPD (chronic obstructive pulmonary disease) J44.9 CAD (coronary artery disease) I25.10 Shoulder pain, left M25.512 Time Spent (min) 50 Home Health Attestation I certify that this patient is under my care and that I, or a physicians bankruptcy legal assistant working with me, had a face to-face encounter that meets the home health [id number] encounter requirements with this patient. The encounter with the patient was in whole, or in part, for the following medical condition, which is the primary reason for home health care (list medical condition): I certify that, based on my findings, the following services are medically necessary home health services: My clinical findings support the need for the above services because: PT Assessment for Endurance / Balance / Strength Skilled Nsg Assessment Further, I certify that my clinical findings support that this patient is homebound (i.e. absences from home require considerable and taxing effort and are for medical reasons or buddhism services or infrequently or of short duration when for other reasons) because: Certification for Home Health Services: Based on the above findings, I certify that this patient is confined to the home and needs intermittent usp care, physical therapy and/or speech therapy or continues to need occupational therapy. The patient is under my care, and I have initiated the establishment of the plan of care. This patient will be followed by a physician who will periodically review the plan of care.
[2021-05-25] MEDS ORDERED: WARFARIN SOD 10 MG TAB PO SCH (16:00)
[2021-05-25] MEDS: DIGOXIN 0.125 MG TAB PO SCH (16:49)
[2021-05-26] MEDS ORDERED: WARFARIN SOD 7.5 MG TAB PO SCH (16:00)
== END 2021-05-25 19:51 | disposition home health service (06) | DRG 190 ==
LOC: ED 15:02 → EDINP 15:02 → SUATTDRO 18:55 → 2S 22:10 → SUATTDRO 05-20 18:10 → 3N 05-20 20:40 → 2W 05-22 20:36

== ENCOUNTER 2021-06-21 09:27 | Inpatient (IN) ==
--- NOTE | 2021-06-21 09:43 | Emergency Department Note ---
Impression & Plan Acute on chronic respiratory failure with hypoxia and hypercapnia, COPD exacerbation, Supratherapeutic INR, Atrial fibrillation ED Provider Note NAME: MELANY HERZOG AGE: 80 SEX: M ARRIVES VIA: Ambulance INFORMANT: Patient, ED PROVIDER(S): Shaun Whitley MD CHIEF COMPLAINT: SOB PLAN: Disposition: Admit MEDICAL DECISION MAKING: The patient is a pleasant 80-year-old gentleman with past medical history of atrial fibrillation, COPD, diastolic heart failure, sleep apnea on home CPAP though noncompliant per his report history of DVT who presents to the emergency department with worsening shortness of breath over the past several weeks particularly more severe this morning. The patient presents from home. He denies any fevers, cough, nausea, vomiting, diarrhea or urinary symptoms. He does admit that he may have had some increased fluid retention. He reports his nebulizer machine is broken at home. He admits that he is supposed to be on CPAP nightly but frequently will not use it. On arrival the patient was in severe respiratory distress with labor breathing with accessory muscle use, tachypneic in mid to upper 30s, O2 saturation in mid 80s on home 2L NC placed on oxymask then Bipap with improvement. He appears euvo lemic to mildly hypervolemic. Lungs with diminished breaths sounds bilaterally and prolonged expiratory phase. EKG shows afib without overt acute ischemia. CXR shows small right pleural effusion with right greater than left bibasilar consolidation. This could represent scarring/atelectasis versus pneumonia/aspiration pneumonitis. WBC and platelets wnl. H/H similar to prior. VBG with pH 7.32 and pCO2 69. Chemistry without acidosis. Electrolytes unremarkable. LFTs without significant abnormality. Troponin 0.02, wnl. BNP 6K approximate to recent values. Procalcitonin is not elevated. INR is supratherapeutic > 10.7. No symptoms of bleeding at this time. Given 5mg IV Vit. K. Upon re-evaluation the patient was significantly improved on Bipap and with treatment with solumedrol and hour long duoneb. BS improved. WOB resolved. Patient agrees with plan for admission. Given afebrile, without leukocytosis and Procalcitonin that is not elevated will defer ABX at this time. Case was d/w Dr. Cline, [facility] [place] [facility] hospitalist who will evaluate the patient for admission. Triage Nursing notes reviewed and agree them. Prior medical records reviewed Vital Signs: reviewed and remarkable for tachypnea, hypoxia. Differential diagnosis: Reactive airway disease, pneumonia, pneumothorax, COPD, CHF, infections, cardiac ischemia, pulmonary embolism, musculoskeletal, gastrointestinal, as well as other pathologies. ER treatment provided: See below. Diagnostics interpreted by me: ECG: Atrial fibrillation, 74 bpm, no ectopy, nonspecific ST and TWA, no overt ST elevation. Cardiac Monitoring: An order for continuous cardiac monitoring was placed and demonstrated Atrial fibrillation, 74 bpm, no ectopy Laboratory studies: See below Imaging studies: See below Consultation(s): Case was d/w Dr. Cline, [facility] [place] hospitalist who will evaluate the patient for a dmission. HPI: The patient is a pleasant 80-year-old gentleman with past medical history of atrial fibrillation, COPD, diastolic heart failure, sleep apnea on home CPAP though noncompliant per his report history of DVT who presents to the emergency department with worsening shortness of breath over the past several weeks particularly more severe this morning. The patient presents from home. He denies any fevers, cough, nausea, vomiting, diarrhea or urinary symptoms. He does admit that he may have had some increased fluid retention. He reports his nebulizer machine is broken at home. He admits that he is supposed to be on CPAP nightly but frequently will not use it. ROS: See above HPI for pertinent positives & negatives. A total of 10 systems reviewed and were otherwise negative. PAST MEDICAL HISTORY:See Below PAST SURGICAL HISTORY:See Below FAMILY HISTORY:See Below SOCIAL HISTORY:See Below HOME MEDICATIONS:See Below ALLERGIES:See Below VITALS:See Below PHYSICAL EXAMINATION: GENERAL: Awake, alert, ill-appearing, severe respiratory distress, BMI 33.3. HENT: Normocephalic, atraumatic. Oropharynx with dry mucous membranes and otherwise unremarkable. EYES: Normal conjunctiva. Sclera non-icteric. NECK: Supple. No nuchal rigidity. FROM. No JVD. RESPIRATORY: Increased WOB with accessory muscle use. Diminished breaths sounds bilaterally and prolonged expiratory phase. CARDIAC: Regular rate, irregular rhythm. Extremities warm and well perfused. Pulses equal. ABDOMEN: Soft, non-distended. No tenderness to palpation. No rebound or guarding. No masses. RECTAL: Deferred. MUSCULOSKELETAL: Chest examination reveals no tenderness. The back is symmetrical on inspection without obvious abnormality. There is no CVA tend erness to palpation. No joint edema. LOWER EXTREMITIES: Calves are equal size bilaterally and non-tender. 1+ BLE edema. No discoloration. NEURO: Normal sensorium. No sensory or motor deficits noted. SKIN: No rash or jaundice noted. ED COURSE: Critical Care: I have personally spent greater than 45 minutes of critical care time in the direct management of this patient. This includes bedside care, interpretation of diagnostic studies, and testing, discussion with consultants, patient, and family members, and other required patient management activities. This 45 guzman sharona is in excess of all separately billable procedures. Shaun Whitley MD Past Med/Surg History Medical History (HFpEF) heart failure with preserved ejection fraction Aortic stenosis, mild CAD (coronary artery disease) Cancer of prostate Chronic hypoxemic respiratory failure COPD (chronic obstructive pulmonary disease) Depression DVT (deep venous thrombosis) Dyslipidemia Heart disease HTN (hypertension) Myocardial infarct Sleep apnea TIA (transient ischemic attack) Surgical History History of appendectomy Hx of tonsillectomy Hx of vasectomy Family History Family/Other Prostate cancer Myocardial infarction Denies family history of Ovarian cancer Breast cancer Colorectal cancer Social History Smoking Status: Never smoker Tobacco Type: Cigarettes Second Hand Exposure: No; Hx Alcohol Use: Yes Alcohol type: beer Alcohol Intake Frequency: 2-4 x/Month Hx Substance Use: No Preferred Language: Tajik Communication Ability: Effective Gun Examiner Required: No Beliefs That Will Affect Care: None marital status: Current Living Situation: Spouse current occupational status: retired Other Information That Helps Us Care for You: No Feels Safe at Home: Yes Safety Concerns: Feels Safe At This Time caffeine: Yes Dental Care, Regularly: No Physical Activity Frequency: Does not Exercise Seatbelt Use: always Sunscreen Use: No Assistive Devices: Glasses and Oxygen - Continuous Allergies Allergies Allergy/AdvReac Type Severity Reaction Status Date / Time acetazolamide Allergy Intermediate swelling Verified 05/27/21 13:09 [From Diamox Sequels] Home Meds Home Medications Medication Instructions Recorded Confirmed calcium carbonate 500 mg (1,250 500 tab PO BID 04/11/21 06/21/21 mg)-vitamin D3 400 unit tablet (Calcium 500 + D) multivitamin (Daily Multi-Vitamin) 1 tab PO QAM 04/11/21 06/21/21 warfarin 10 mg tablet 7.5 - 10 mg PO UD 05/18/21 06/21/21 Previous Rx's Medication Instructions Recorded aspirin 81 mg tablet,delayed 81 mg PO QAM #30 tab 01/12/19 release (Ecotrin Low Strength) acetaminophen 325 mg tablet 650 mg PO Q4H PRN #30 tab 04/22/21 metoprolol tartrate 50 mg tablet 150 mg PO BID #0 tab 04/22/21 (Lopressor) nystatin 100,000 unit/gram topical 1 applic EXT TID #30 g 04/22/21 powder (Nystop) pantoprazole 40 mg tablet,delayed 40 mg PO BID #60 tab 04/22/21 release sennosides 8.6 mg tablet (Senokot) 17.2 mg PO QAM #60 tab 04/22/21 furosemide 80 mg tablet (Lasix) 80 mg PO QAM #30 tab 05/10/21 potassium chloride 20 mEq 20 meq PO BID #60 tab 05/10/21 tablet,extended release(part/cryst) (Klor-Con M) fluticasone fur. 100 mcg-umeclid 1 inh INHALATION DAILY #60 ea 05/25/21 62.5 mcg-vilant 25 mcg inhalat.powder (Trelegy Ellipta) lidocaine 1.8 % topical patch 1 patch TOPICAL DAILY #30 ea 05/25/21 (ZTlido) atorvastatin 40 mg tablet 40 mg PO HS #30 tab 06/05/21 digoxin 125 mcg (0.125 mg) tablet 125 mcg PO DAILY@1600 #30 tab 06/05/21 (Digitek) diltiazem HCl 120 mg 120 mg PO QAM #30 cap 06/05/21 capsule,extended release 24 hr tamsulosin 0.4 mg capsule (Flomax) 0.4 mg PO DAILY #30 cap 06/05/21 Results & Data (ED) Vital Signs Vital Signs - 24 hr 06/21/21 09:15 06/21/21 09:38 06/21/21 09:50 Temperature 36.8 C Temperature Source Oral Pulse Rate 94 H Pulse Rate [Right Finger] Respiratory Rate 36 H Respiratory Effort / Characteristics Accessory Muscle Use Labored Short of Breath Accessory Muscle Use Respiratory Depth Shallow Respiratory Pattern Rapid/Shallow Blood Pressure 168/117 H Blood Pressure [Right Arm] Blood Pressure Mean 134 Blood Pressure Mean [Right Arm] Pulse Oximetry 93 Oxygen Delivery Method Nasal Cannula Nasal Cannula BiPAP Oxygen Flow Rate 4 Fraction of Inspired Oxygen Sepsis Recent Fever Within 48 Hours No Sepsis New/Unexplained Change in Mental Status No Sepsis Action Taken by Nursing No Action Required 06/21/21 10:07 06/21/21 10:09 06/21/21 10:39 Temperature Temperature Source Pulse Rate 88 Pulse Rate [Right Finger] 89 Respiratory Rate 29 H 29 H Respiratory Effort / Characteristics Spontaneous Spontaneous Respiratory Depth Normal Respiratory Pattern Tachypnea Blood Pressure Blood Pressure [Right Arm] Blood Pressure Mean Blood Pressure Mean [Right Arm] Pulse Oximetry 97 97 Oxygen Delivery Method BiPAP BiPAP Oxygen Flow Rate Fraction of Inspired Oxygen 40 40 Sepsis Recent Fever Within 48 Hours Sepsis New/Unexplained Change in Mental Status Sepsis Action Taken by Nursing 06/21/21 11:38 Temperature Temperature Source Pulse Rate Pulse Rate [Right Finger] 79 Respiratory Rate 22 Respiratory Effort / Characteristics Respiratory Depth Respiratory Pattern Regular Blood Pressure Blood Pressure [Right Arm] 153/88 H Blood Pressure Mean Blood Pressure Mean [Right Arm] 109 Pulse Oximetry Oxygen Delivery Method BiPAP Oxygen Flow Rate Fraction of Inspired Oxygen Sepsis Recent Fever Within 48 Hours Sepsis New/Unexplained Change in Mental Status Sepsis Action Taken by Nursing Laboratory Data Attestation: I reviewed the patient's lab results. Result diagrams: 06/21/21 10:10 06/21/21 10:10 Lab Results 06/21/21 06/21/21 06/21/21 Range/Units 09:51 09:51 10:10 WBC 8.84 (4.8-10.8) K/uL RBC 3.88 L (4.7-6.1) M/uL Hgb 12.5 L (14.0-18.0) g/dL Hct 40.3 L (42-52) % MCV 103.9 H (80-100) fL MCH 32.2 (25-34) pg MCHC 31.0 L (32-36) g/dL RDW Std Deviation 56.8 H (36.4-46.3) fL RDW Coeff of Luciano 14.8 H (11.5-14.5) % Plt Count 388 (130-400) K/uL MPV 10.7 H (7.4-10.4) fL Immature Gran % (Auto) 0.3 % Neut % (Auto) 77.8 % Lymph % (Auto) 13.6 % [place] % (Auto) 7.9 % Eos % (Auto) 0.2 % Baso % (Auto) 0.2 % Neut # (Auto) 6.87 H (1.4-6.5) K/uL Lymph # (Auto) 1.20 (1.2-3.4) K/uL [place] # (Auto) 0.70 H (0.11-0.59) K/uL Eos # (Auto) 0.02 (0-0.5) K/uL Baso # (Auto) 0.02 (0-0.2) K/uL Immature Gran # (Auto) 0.03 H (0.00-0.02) K/uL PT (9.0-12.0) Seconds INR (0.9-1.1) APTT (21.0-31.0) Seconds PTT Ratio VBG pH (7.36-7.41) VBG pCO2 (38-50) mmHg VBG pO2 mmHg VBG HCO3 mmol/L VBG O2 Saturation % VBG Base Excess mEq/L Barometric Pressure mm/Hg Sodium (136-145) mmol/L Potassium (3.5-5.1) mmol/L Chloride (98-107) mmol/L Carbon Dioxide (21-32) mmol/L Anion Gap (3-11) BUN (7-18) mg/dl Creatinine (0.6-1.4) mg/dl Est Cr Clr Drug Dosing ml/min Est GFR ( Amer) ml/min Est GFR (Non-Af Amer) ml/min BUN/Creatinine Ratio (10-20) Glucose (70-99) mg/dl Lactate (0.4-2.0) mmol/L Calcium (8.5-10.1) mg/dl Phosphorus (2.5-4.9) mg/dl Magnesium (1.8-2.4) mg/dl Total Bilirubin (0.2-1) mg/dl Direct Bilirubin (0-0.2) mg/dl AST (15-37) U/L ALT (12-78) U/L Alkaline Phosphatase (45-117) U/L Troponin I (0-0.045) ng/ml NT-Pro-B Natriuret Pep (0-1800) pg/ml Total Protein (6.4-8.2) gm/dl Albumin (3.4-5.0) gm/dl Globulin (2.5-4.0) gm/dl Albumin/Globulin Ratio (0.9-2) Procalcitonin (0-0.5) ng/ml TSH (0.300-4.500) uIu/ml Urine Color Urine Appearance (Clear) Urine pH (4.5-7.5) Ur Specific [place] (1.000-1.030) Urine Protein (Negative) Urine Glucose (UA) (Negative) Urine Ketones (Negative) Urine Blood (Negative) Urine Nitrite (Negative) Urine Bilirubin (Negative) Urine Urobilinogen (Negative) Ur Leukocyte Esterase (Negative) COVID-19 Eval Order Covid19 at [facility] SARS-CoV-2 (PCR) NEGATIVE (Negative) 06/21/21 06/21/21 06/21/21 Range/Units 10:10 10:10 10:10 WBC (4.8-10.8) K/uL RBC (4.7-6.1) M/uL Hgb (14.0-18.0) g/dL Hct (42-52) % MCV (80-100) fL MCH (25-34) pg MCHC (32-36) g/dL RDW Std Deviation (36.4-46.3) fL RDW Coeff of Luciano (11.5-14.5) % Plt Count (130-400) K/uL MPV (7.4-10.4) fL Immature Gran % (Auto) % Neut % (Auto) % Lymph % (Auto) % [place] % (Auto) % Eos % (Auto) % Baso % (Auto) % Neut # (Auto) (1.4-6.5) K/uL Lymph # (Auto) (1.2-3.4) K/uL [place] # (Auto) (0.11-0.59) K/uL Eos # (Auto) (0-0.5) K/uL Baso # (Auto) (0-0.2) K/uL Immature Gran # (Auto) (0.00-0.02) K/uL PT > 90.0 H (9.0-12.0) Seconds INR > 10.7 H* (0.9-1.1) APTT 57.9 H* (21.0-31.0) Seconds PTT Ratio 2.2 VBG pH (7.36-7.41) VBG pCO2 (38-50) mmHg VBG pO2 mmHg VBG HCO3 mmol/L VBG O2 Saturation % VBG Base Excess mEq/L Barometric Pressure mm/Hg Sodium 141 (136-145) mmol/L Potassium 4.3 (3.5-5.1) mmol/L Chloride 103 (98-107) mmol/L Carbon Dioxide 31 (21-32) mmol/L Anion Gap 7.0 (3-11) BUN 11 (7-18) mg/dl Creatinine 0.78 (0.6-1.4) mg/dl Est Cr Clr Drug Dosing 90.5 ml/min Est GFR ( Amer) 99.5 ml/min Est GFR (Non-Af Amer) 85.9 ml/min BUN/Creatinine Ratio 14.3 (10-20) Glucose 115 H (70-99) mg/dl Lactate (0.4-2.0) mmol/L Calcium 9.1 (8.5-10.1) mg/dl Phosphorus 3.6 (2.5-4.9) mg/dl Magnesium 2.2 (1.8-2.4) mg/dl Total Bilirubin 0.5 (0.2-1) mg/dl Direct Bilirubin 0.2 (0-0.2) mg/dl AST 17 (15-37) U/L ALT 25 (12-78) U/L Alkaline Phosphatase 92 (45-117) U/L Troponin I 0.020 (0-0.045) ng/ml NT-Pro-B Natriuret Pep 6033 H (0-1800) pg/ml Total Protein 6.3 L (6.4-8.2) gm/dl Albumin 2.9 L (3.4-5.0) gm/dl Globulin 3.4 (2.5-4.0) gm/dl Albumin/Globulin Ratio 0.8 L (0.9-2) Procalcitonin < 0.05 (0-0.5) ng/ml TSH 1.110 (0.300-4.500) uIu/ml Urine Color Urine Appearance (Clear) Urine pH (4.5-7.5) Ur Specific [place] (1.000-1.030) Urine Protein (Negative) Urine Glucose (UA) (Negative) Urine Ketones (Negative) Urine Blood (Negative) Urine Nitrite (Negative) Urine Bilirubin (Negative) Urine Urobilinogen (Negative) Ur Leukocyte Esterase (Negative) COVID-19 Eval Order SARS-CoV-2 (PCR) (Negative) 06/21/21 06/21/21 06/21/21 Range/Units 10:28 10:28 10:40 WBC (4.8-10.8) K/uL RBC (4.7-6.1) M/uL Hgb (14.0-18.0) g/dL Hct (42-52) % MCV (80-100) fL MCH (25-34) pg MCHC (32-36) g/dL RDW Std Deviation (36.4-46.3) fL RDW Coeff of Luciano (11.5-14.5) % Plt Count (130-400) K/uL MPV (7.4-10.4) fL Immature Gran % (Auto) % Neut % (Auto) % Lymph % (Auto) % [place] % (Auto) % Eos % (Auto) % Baso % (Auto) % Neut # (Auto) (1.4-6.5) K/uL Lymph # (Auto) (1.2-3.4) K/uL [place] # (Auto) (0.11-0.59) K/uL Eos # (Auto) (0-0.5) K/uL Baso # (Auto) (0-0.2) K/uL Immature Gran # (Auto) (0.00-0.02) K/uL PT (9.0-12.0) Seconds INR (0.9-1.1) APTT (21.0-31.0) Seconds PTT Ratio VBG pH 7.32 L (7.36-7.41) VBG pCO2 69 H (38-50) mmHg VBG pO2 32 mmHg VBG HCO3 34 mmol/L VBG O2 Saturation < 60.0 % VBG Base Excess 6.0 mEq/L Barometric Pressure 736.2 mm/Hg Sodium (136-145) mmol/L Potassium (3.5-5.1) mmol/L Chloride (98-107) mmol/L Carbon Dioxide (21-32) mmol/L Anion Gap (3-11) BUN (7-18) mg/dl Creatinine (0.6-1.4) mg/dl Est Cr Clr Drug Dosing ml/min Est GFR ( Amer) ml/min Est GFR (Non-Af Amer) ml/min BUN/Creatinine Ratio (10-20) Glucose (70-99) mg/dl Lactate 1.4 (0.4-2.0) mmol/L Calcium (8.5-10.1) mg/dl Phosphorus (2.5-4.9) mg/dl Magnesium (1.8-2.4) mg/dl Total Bilirubin (0.2-1) mg/dl Direct Bilirubin (0-0.2) mg/dl AST (15-37) U/L ALT (12-78) U/L Alkaline Phosphatase (45-117) U/L Troponin I (0-0.045) ng/ml NT-Pro-B Natriuret Pep (0-1800) pg/ml Total Protein (6.4-8.2) gm/dl Albumin (3.4-5.0) gm/dl Globulin (2.5-4.0) gm/dl Albumin/Globulin Ratio (0.9-2) Procalcitonin (0-0.5) ng/ml TSH (0.300-4.500) uIu/ml Urine Color Yellow Urine Appearance Clear (Clear) Urine pH 6.5 (4.5-7.5) Ur Specific [place] 1.007 (1.000-1.030) Urine Protein Negative (Negative) Urine Glucose (UA) Negative (Negative) Urine Ketones Negative (Negative) Urine Blood Negative (Negative) Urine Nitrite Negative (Negative) Urine Bilirubin Negative (Negative) Urine Urobilinogen Negative (Negative) Ur Leukocyte Esterase Negative (Negative) COVID-19 Eval Order SARS-CoV-2 (PCR) (Negative) Administered Medications Albuterol (Albut/Ipratrop 3mg/0.5mg Neb 3 Ml Vial) 3 ml NEB QIDR JOSE ALBERTO Stop: 07/21/21 14:59 Last Admin: 06/21/21 19:31 Dose: 3 ml Documented by: [id number] Admin: 06/21/21 15:25 Dose: 3 ml Documented by: [id number] Atorvastatin Calcium (Atorvastatin 40 Mg Tab) 40 mg PO HS [facility] Stop: 07/21/21 20:59 Last Admin: 06/21/21 20:00 Dose: 40 mg Documented by: [id number] Calcium Carbonate (Calcium Carbonate 1250mg Tab) 1,250 mg PO BID JOSE ALBERTO Stop: 07/21/21 20:59 Last Admin: 06/21/21 20:02 Dose: 1,250 mg Documented by: [id number] Digoxin (Digoxin 0.125 Mg Tab) 0.125 mg PO DAILY@1600 [facility] Stop: 07/21/21 15:59 Last Admin: 06/21/21 16:06 Dose: 0.125 mg Documented by: [id number] Methylprednisolone 40 mg/ (Syringe) 0.64 mls @ 1.5 mls/min IV BID [facility] Stop: 07/21/21 20:59 Last Admin: 06/21/21 20:16 Dose: 1.5 mls/min Documented by: [id number] Lidocaine (Lidocaine 5% 1 Patch) 1 patch TD QAM [facility] Stop: 07/21/21 15:14 Last Admin: 06/21/21 20:12 Dose: 1 patch Documented by: [id number] Admin: 06/21/21 17:10 Dose: Not Given Documented by: [id number] Metoprolol Tartrate (Metoprolol Tartrate 50 Mg Tab) 150 mg PO BID [facility] Stop: 07/21/21 20:59 Last Admin: 06/21/21 20:04 Dose: 150 mg Documented by: [id number] Miscellaneous (Remove Lidoderm Patch) 1 ea N/A DAILY@2100 [facility] Stop: 07/21/21 20:59 Last Admin: 06/21/21 20:15 Dose: Not Given Documented by: [id number] Nystatin (Nystatin Powder 15gm Btl) 1 appln EXT TID [facility] Stop: 07/01/21 14:44 Last Admin: 06/21/21 20:09 Dose: 1 appln Documented by: [id number] Admin: 06/21/21 16:06 Dose: 1 appln Documented by: [id number] Ondansetron HCl (Ondansetron Inj 2 Mg/Ml 2 Ml Vial) 4 mg IV Q6H PRN PRN Reason: Nausea Stop: 07/21/21 14:43 Last Admin: 06/21/21 20:22 Dose: 4 mg Documented by: [id number] Pantoprazole Sodium (Pantoprazole 40 Mg Tab) 40 mg PO BID JOSE ALBERTO Stop: 07/21/21 20:59 Last Admin: 06/21/21 20:06 Dose: 40 mg Documented by: [id number] Potassium Chloride (Potassium Chloride Crtab 20 Meq Tabcr) 20 meq PO BID JOSE ALBERTO Stop: 07/21/21 20:59 Last Admin: 06/21/21 20:07 Dose: 20 meq Documented by: [id number] Discontinued Medications Albuterol (Albut/Ipratrop 3mg/0.5mg Neb 3 Ml Vial) 12 ml NEB ONE ONE Stop: 06/21/21 09:50 Last Admin: 06/21/21 10:01 Dose: 12 ml Documented by: [id number] Phytonadione 5 mg/ Sodium (Chloride) 50.5 mls @ 101 mls/hr IV ONE ONE Stop: 06/21/21 11:56 Last Infusion: 06/21/21 15:04 Dose: 0 mls/hr Documented by: [id number] Admin: 06/21/21 11:52 Dose: 101 mls/hr Documented by: [id number] Azithromycin 500 mg/ Dextrose 255 mls @ 127.5 mls/hr IV NOW STA Stop: 06/21/21 14:18 Last Infusion: 06/21/21 16:01 Dose: 0 mls/hr Documented by: [id number] Admin: 06/21/21 13:05 Dose: 127.5 mls/hr Documented by: [id number] Methylprednisolone (Methylprednisolone 125 Mg/2 Ml Vial) 125 mg IV NOW STA Stop: 06/21/21 09:51 Last Admin: 06/21/21 10:23 Dose: 125 mg Documented by: [id number] Methylprednisolone (Methylprednisolone 40 Mg/Ml Vial) 40 mg IV BID STA Stop: 06/21/21 12:19 Last Admin: 06/21/21 15:04 Dose: Not Given Documented by: [id number] Imaging Data Radiologist's Impression: Chest X-Ray 06/21/21 09:50 SINGLE VIEW CHEST CLINICAL HISTORY: Sepsis. FINDINGS: An AP, portable, upright chest radiograph is compared to study dated 05/27/2021 and correlated with chest CT dated 05/18/2021. The examination is degraded by portable technique and patient rotation. The heart is enlarged noting atherosclerotic calcification of the thoracic aorta. The pulmonary vasculature is noncongested. 1 loss in the right lung is unchanged. There is a small right pleural effusion with bibasilar consolidation, right greater than left. No pneumothorax is seen. The skeletal structures are osteopenic. There are numerous healed bilateral rib fractures. IMPRESSION: 1. Cardiomegaly without radiographic evidence of congestive failure. 2. Chronic volume loss in the right lung is similar to previous. 3. There is a small right pleural effusion with right greater than left bibasilar consolidation. This could represent scarring/atelectasis versus pneumonia/aspiration pneumonitis. Clinical correlation will be required and radiographic follow-up to resolution is recommended. ACT 112: Negative or not required by law. Electronically signed by: Humberto Lynch M.D. 06/21/2021 10:32 AM Discharge Plan Visit Data Chief Complaint: Shortness of Breath/Dyspnea Stated Complaint: SOB, CHEST PAIN ED Provider: Shaun Whitley Discharge Problem: Acute on chronic respiratory failure with hypoxia and hypercapnia, COPD exacerbation, Supratherapeutic INR, Atrial fibrillation Patient Disposition: Admitted As Inpatient Discharge Instructions Interventions: ED Discharge Assessment Last Done: 06/21/21 13:59 Discharge Problem: Atrial fibrillation Qualifiers: Atrial fibrillation type: persistent (not longstanding) Qualified Code(s): I48.19 - Other persistent atrial fibrillation
[2021-06-21] MEDS ORDERED: ALBUT/IPRATROP 3MG/0.5MG NEB 3 ML VIAL NEB ONE (09:49)
[2021-06-21] MEDS ORDERED: methylPREDNISolone 125 MG/2 ML VIAL IV STA (09:50)
[2021-06-21 10:21] LABS: Basophils # (auto) 0.02 K/uL (0-0.2); Basophils % (auto) 0.2 %; Eosinophils # (auto) 0.02 K/uL (0-0.5); Eosinophils % (auto) 0.2 %; Hematocrit (blood only) 40.3 % (42-52); Hemoglobin 12.5 g/dL (14.0-18.0); Immature Granulocytes # (auto) 0.03 K/uL (0.00-0.02); Immature Granulocytes % (auto) 0.3 %; Lymphocytes % (auto) 13.6 %; Mean Corpuscular Hemoglobin 32.2 pg (25-34); Mean Corpuscular Volume 103.9 fL (80-100); Mean Platelet Volume 10.7 fL (7.4-10.4); Monocytes % (auto) 7.9 %; Neutrophils # (auto) 6.87 K/uL (1.4-6.5); Neutrophils % (auto) 77.8 %; Platelet Count 388 K/uL (130-400); RDW Coefficient of Variation 14.8 % (11.5-14.5); RDW Standard Deviation 56.8 fL (36.4-46.3); Red Blood Count 3.88 M/uL (4.7-6.1); White Blood Count 8.84 K/uL (4.8-10.8)
--- NOTE | 2021-06-21 10:34 | XRay Report ---
SINGLE VIEW CHEST CLINICAL HISTORY: Sepsis. FINDINGS: An AP, portable, upright chest radiograph is compared to study dated 05/27/2021 and correla princess with chest CT dated 05/18/2021. The examination is degraded by portable technique and patient rota tion. The heart is enlarged noting atherosclerotic calcification of the thoracic aorta. The pulmona ry vasculature is noncongested. 1 loss in the right lung is unchanged. There is a small right pleural effusion with bibasilar consolidation, right greater than left. No pneumothorax is seen. The skeleta l structures are osteopenic. There are numerous healed bilateral rib fractures. IMPRESSION: 1. Cardiomegaly without radiographic evidence of congestive failure. 2. Chronic volume loss in the right lung is similar to previous. 3. There is a small right pleural effusion with right greater than left bibasilar consolidation. This could represent scarring/atelectasis versus pneumonia/aspiration pneumonitis. Clinical correlation w ill be required and radiographic follow-up to resolution is recommended. ACT 112: Negative or not required by law. Electronically signed by: Humberto Lynch M.D. 06/21/2021 10:32 AM
[2021-06-21 10:40] LABS: HCO3 VBG 34 mmol/L; PCO2 VBG 69 mmHg (38-50); PO2 VBG 32 mmHg; pH VBG 7.32 (7.36-7.41)
[2021-06-21 10:41] LABS: Albumin Level 2.9 gm/dl (3.4-5.0); BUN Creatinine Ratio 14.3 (10-20); Bilirubin Direct 0.2 mg/dl (0-0.2); Calcium 9.1 mg/dl (8.5-10.1); Creatinine Clr Calc Pharmacy 90.5 ml/min; Est GFR (African American) 99.5 ml/min; Est GFR (Non-African American) 85.9 ml/min; Magnesium 2.2 mg/dl (1.8-2.4); Potassium 4.3 mmol/L (3.5-5.1)
[2021-06-21 10:42] LABS: Oxygen Saturation VBG < 60.0 %
[2021-06-21 10:49] LABS: Appearance Urine Clear (Clear); Bilirubin Urine Negative (Negative); Blood Urine Negative (Negative); Color Urine Yellow; Glucose Urine UA Negative (Negative); Ketones Urine Negative (Negative); Leukocyte Esterase Urine Negative (Negative); Nitrite Urine Negative (Negative); Protein Urine Negative (Negative); Specific Gravity Urine 1.007 (1.000-1.030); Urobilinogen Urine Negative (Negative); pH Urine 6.5 (4.5-7.5)
[2021-06-21 10:49] LABS: Partial Thromboplastin Ratio 2.2; Prothrombin Time > 90.0 Seconds (9.0-12.0)
[2021-06-21 10:52] LABS: Albumin Globulin Ratio 0.8 (0.9-2); Bilirubin,Total 0.5 mg/dl (0.2-1); Globulin 3.4 gm/dl (2.5-4.0); Phosphorus 3.6 mg/dl (2.5-4.9); Thyroid Stimulating Hormone 1.11 uIu/ml (0.300-4.500); Total Protein 6.3 gm/dl (6.4-8.2); Troponin I 0.02 ng/ml (0-0.045)
[2021-06-21 10:54] LABS: INR > 10.7 (0.9-1.1); Partial Thromboplastin Time 57.9 Seconds (21.0-31.0)
[2021-06-21] MEDS ORDERED: PHYTONADIONE 5 MG in SODIUM CHLORIDE 0.9% 50 ML IV ONE (11:27)
[2021-06-21] MEDS ORDERED: AZITHROMYCIN 500 MG in DEXTROSE 5% 250 ML IV STA (12:19)
--- NOTE | 2021-06-21 12:24 | History & Physical Report ---
Date of Service June 21, 2021 Assessment & Plan (1) COPD exacerbation: Plan: Solu-medrol 125mg IV given in ER. Continue 40mg IV BID Duonebs QID Continue regular maintenance inhalers or hospital formulary equivalent (2) Acute on chronic respiratory failure with hypoxia and hypercapnia: Plan: On BiPAP in the ER Can switch to nasal cannula on the saleh and wean to 88% as able Continue BiPAP @ night or when napping (3) Permanent atrial fibrillation: Plan: Rate controlled on diltiazem, metoprolol and digoxin (level in AM) Monitor on telemetry Anticoagulation on warfarin - see below. (4) Sleep apnea: Plan: Patient generally refuses CPAP/BiPAP however currently tolerating BiPAP in the ER. Will trial BiPAP HS if patient tolerates (5) Supratherapeutic INR: Plan: Vitamin K 5mg IV given in ER. Monitor PTINR daily (6) HTN (hypertension): Plan: Continue furosemide, diltiazem and metoprolol (7) (HFpEF) heart failure with preserved ejection fraction: Plan: No acute exacerbation suspected Continue furosemide (8) Right shoulder pain: Plan: Suspected rotator cuff injury Not surgical candidate Again recommended PT with rehab and orthopedic follow up and more willing currently to do this Plan: VTE Prophylaxis - supratherapeutic INR currently Diet - per prior SLT recommendations, regular moist diet, aspiration precautions Disposition - observation status to med/tele Admission and Anticipated Discharge Date Admission Date: June 21, 2021 History of Present Illness Chief Complaint: Shortness of breath Primary Care Provider: JONATHAN Russo Brice Osei is a 80 year old male who presents to the ER via EMS with three days of chest pain and shortness of breath. He reports feeling similar to when he was here last in May with shortness of breath and was diagnosed with bronchitis. He is coughing up redman sputum with left sided chest pain on coughing. He is chronically short of breath with COPD on 2.5 LPM O2. Continues to have right shoulder pain but has not done physical therapy or followed up with orthopedics as recommended previously. On discussion with his over the phone she reports his nebulizer is broken and they are waiting for the equipment company to replace it but it has been weeks. The patient is unable to tolerate the BiPAP due to secretions. They are generally not coping well. Office of aging are involved but it sound like just with finances and the patient has refused to hand over bank statements. She wishes he would go to rehabilitation as he cannot do much around the house and she is unable to take care of him as she has her own problems and falls repeatedly. In the ER he is already feeling improved after nebulizer, IV steroids and BiPAP started. He was referred to medicine for admission and ongoing management of acute respiratory failure and COPD exacerbation. Allergies Allergy/AdvReac Type Severity Reaction Status Date / Time acetazolamide Allergy Intermediate swelling Verified 05/27/21 13:09 [From Di[employer]els] Home Medications Medication Instructions Recorded Confirmed Type aspirin 81 mg tablet,delayed 81 mg PO QAM #30 tab 01/12/19 06/21/21 Rx release (Ecotrin Low Strength) calcium carbonate 500 mg (1,250 500 tab PO BID 04/11/21 06/21/21 History mg)-vitamin D3 400 unit tablet (Calcium 500 + D) multivitamin (Daily Multi-Vitamin) 1 tab PO QAM 04/11/21 06/21/21 History acetaminophen 325 mg tablet 650 mg PO Q4H PRN #30 tab 04/22/21 06/21/21 Rx metoprolol tartrate 50 mg tablet 150 mg PO BID #0 tab 04/22/21 06/21/21 Rx (Lopressor) nystatin 100,000 unit/gram topical 1 applic EXT TID #30 g 04/22/21 06/21/21 Rx powder (Nystop) pantoprazole 40 mg tablet,delayed 40 mg PO BID #60 tab 04/22/21 06/21/21 Rx release sennosides 8.6 mg tablet (Senokot) 17.2 mg PO QAM #60 tab 04/22/21 06/21/21 Rx furosemide 80 mg tablet (Lasix) 80 mg PO QAM #30 tab 05/10/21 06/21/21 Rx potassium chloride 20 mEq 20 meq PO BID #60 tab 05/10/21 06/21/21 Rx tablet,extended release(part/cryst) (Klor-Con M) warfarin 10 mg tablet 7.5 - 10 mg PO UD 05/18/21 06/21/21 History fluticasone fur. 100 mcg-umeclid 1 inh INHALATION DAILY #60 ea 05/25/21 06/21/21 Rx 62.5 mcg-vilant 25 mcg inhalat.powder (Trelegy Ellipta) lidocaine 1.8 % topical patch 1 patch TOPICAL DAILY #30 ea 05/25/21 06/21/21 Rx (ZTlido) atorvastatin 40 mg tablet 40 mg PO HS #30 tab 06/05/21 06/21/21 Rx digoxin 125 mcg (0.125 mg) tablet 125 mcg PO DAILY@1600 #30 tab 06/05/21 06/21/21 Rx (Digitek) diltiazem HCl 120 mg 120 mg PO QAM #30 cap 06/05/21 06/21/21 Rx capsule,extended release 24 hr tamsulosin 0.4 mg capsule (Flomax) 0.4 mg PO DAILY #30 cap 06/05/21 06/21/21 Rx Past Med/Surg History Medical History (Updated 06/22/21 @ 06:25 by Nick Cline MD) (HFpEF) heart failure with preserved ejection fraction Aortic stenosis, mild CAD (coronary artery disease) Cancer of prostate Chronic hypoxemic respiratory failure COPD (chronic obstructive pulmonary disease) Depression DVT (deep venous thrombosis) Dyslipidemia Heart disease HTN (hypertension) Myocardial infarct Sleep apnea TIA (transient ischemic attack) Surgical History History of appendectomy Hx of tonsillectomy Hx of vasectomy Family History Family/Other Prostate cancer Myocardial infarction Denies family history of Ovarian cancer Breast cancer Colorectal cancer Social History Smoking Status: Never smoker Tobacco Type: Cigarettes Second Hand Exposure: No; Hx Alcohol Use: Yes Alcohol type: beer Alcohol Intake Frequency: 2-4 x/Month Hx Substance Use: No Preferred Language: Kazakh Communication Ability: Effective In Store Demonstrator Required: No Beliefs That Will Affect Care: None marital status: Current Living Situation: Spouse current occupational status: retired Other Information That Helps Us Care for You: No Feels Safe at Home: Yes Safety Concerns: Feels Safe At This Time caffeine: Yes Dental Care, Regularly: No Physical Activity Frequency: Does not Exercise Seatbelt Use: always Sunscreen Use: No Assistive Devices: Glasses and Oxygen - Continuous Physical Exam Constitutional: well developed and + acute distress (respiratory); + not well nourished Eyes: + anicteric sclerae; normal pupil size ENMT: Mouth: oral mucous membranes not dry Neck: trachea midline, no thyromegaly Respiratory: + respiratory distress, + labored breathing, + retractions, + uses accessory muscles and + prolonged expiratory phase; + not able to speak in complete sentence Auscultation: + diminished lung sounds (throughout); no crackles, no rales, no rhonchi and no wheezes Cardiovascular: Rate/Rhythm: regular rate and + irregularly irregular Heart Sounds: no murmur Vessels: no JVD Extremities: normal capillary refill and + pedal edema (trace ankles); no calf tenderness Gastrointestinal (Abdomen): normal bowel sounds, soft, nontender, no hepatosplenomegaly Musculoskeletal: no cyanosis or clubbing, extremities motor strength 5/5 Skin: no rashes, warm and dry Neurologic: moves all extremities and awake; not confused Psychiatric: A+Ox3, euthymic affect Results & Data Results & Data ([facility]) Vital Signs (Past 12 Hours) Vital Signs Temp Pulse Pulse Resp BP BP Pulse Ox 06/21/21 11:38 79 22 153/88 H 06/21/21 10:09 89 29 H 97 06/21/21 10:07 88 29 H 97 06/21/21 09:15 36.8 C 94 H 36 H 168/117 H 93 Laboratory Results Abnormal lab results 06/21/21 06/21/21 06/21/21 Range/Units 10:10 10:10 10:10 RBC 3.88 L (4.7-6.1) M/uL Hgb 12.5 L (14.0-18.0) g/dL Hct 40.3 L (42-52) % MCV 103.9 H (80-100) fL MCHC 31.0 L (32-36) g/dL RDW Std Deviation 56.8 H (36.4-46.3) fL RDW Coeff of Luciano 14.8 H (11.5-14.5) % MPV 10.7 H (7.4-10.4) fL Neut # (Auto) 6.87 H (1.4-6.5) K/uL Payne # (Auto) 0.70 H (0.11-0.59) K/uL Immature Gran # (Auto) 0.03 H (0.00-0.02) K/uL PT > 90.0 H (9.0-12.0) Seconds INR > 10.7 H* (0.9-1.1) APTT 57.9 H* (21.0-31.0) Seconds VBG pH (7.36-7.41) VBG pCO2 (38-50) mmHg Glucose 115 H (70-99) mg/dl POC Glucose (70-99) mg/dl NT-Pro-B Natriuret Pep 6033 H (0-1800) pg/ml Total Protein 6.3 L (6.4-8.2) gm/dl Albumin 2.9 L (3.4-5.0) gm/dl Albumin/Globulin Ratio 0.8 L (0.9-2) 06/21/21 06/21/21 Range/Units 10:28 20:11 RBC (4.7-6.1) M/uL Hgb (14.0-18.0) g/dL Hct (42-52) % MCV (80-100) fL MCHC (32-36) g/dL RDW Std Deviation (36.4-46.3) fL RDW Coeff of Luciano (11.5-14.5) % MPV (7.4-10.4) fL Neut # (Auto) (1.4-6.5) K/uL Payne # (Auto) (0.11-0.59) K/uL Immature Gran # (Auto) (0.00-0.02) K/uL PT (9.0-12.0) Seconds INR (0.9-1.1) APTT (21.0-31.0) Seconds VBG pH 7.32 L (7.36-7.41) VBG pCO2 69 H (38-50) mmHg Glucose (70-99) mg/dl POC Glucose 165 H (70-99) mg/dl NT-Pro-B Natriuret Pep (0-1800) pg/ml Total Protein (6.4-8.2) gm/dl Albumin (3.4-5.0) gm/dl Albumin/Globulin Ratio (0.9-2) Diagnostic Findings SINGLE VIEW CHEST CLINICAL HISTORY: Sepsis. FINDINGS: An AP, portable, upright chest radiograph is compared to study dated 05/27/2021 and correlated with chest CT dated 05/18/2021. The examination is degraded by portable technique and patient rotation. The heart is enlarged noting atherosclerotic calcification of the thoracic aorta. The pulmonary vasculature is noncongested. 1 loss in the right lung is unchanged. There is a small right pleural effusion with bibasilar consolidation, right greater than left. No pneumothorax is seen. The skeletal structures are osteopenic. There are numerous healed bilateral rib fractures. IMPRESSION: 1. Cardiomegaly without radiographic evidence of congestive failure. 2. Chronic volume loss in the right lung is similar to previous. 3. There is a small right pleural effusion with right greater than left bibasilar consolidation. This could represent scarring/atelectasis versus pneumonia/aspiration pneumonitis. Clinical correlation will be required and radiographic follow-up to resolution is recommended. Medications Administered ER Medications given: Duoneb 12ml Solu-medrol 125mg IV Vitamin K 5mg IV ECG Indication: SOB/dyspnea Rate (beats per minute): 74 Rhythm: atrial fibrillation Comparison ECG Date: from (May 27, 2021) Change: no significant change PG Care Time/CCT Total # of Minutes Spent Total Time Spent with Patient: Total time spent is greater than 50% in coordination of care (as documented) at patient's floor/unit and/or counseling patient: Coding Level of Care Code INT OBSERVATION CARE 70M LVL 3 Diagnoses COPD exacerbation J44.1 Permanent atrial fibrillation I48.21 Sleep apnea G47.30 Supratherapeutic INR R79.1 Acute on chronic respiratory failure with hypoxia and hypercapnia J96.21; J96.22 HTN (hypertension) I10 (HFpEF) heart failure with preserved ejection fraction I50.30 Right shoulder pain M25.511
--- NOTE | 2021-06-21 13:52 | Electrocardiogram Report ---
Test Reason : Blood Pressure : / mmHG Vent. Rate : 074 BPM Atrial Rate : 084 BPM P-R Int : 000 ms QRS Dur : 096 ms QT Int : 318 ms P-R-T Axes : 000 005 245 degrees QTc Int : 352 ms Atrial fibrillation Nonspecific ST and T wave abnormality Abnormal ECG When compared with ECG of 27-MAY-2021 11:26, No significant change was found Confirmed by Clayton Willis ([id number]) on 06/21/2021 1:52:26 PM Referred By: Confirmed By:Clayton Willis
[2021-06-21] MEDS ORDERED: ACETAMINOPHEN 325 MG TAB PO PRN (14:44)
[2021-06-21] MEDS: ALBUT/IPRATROP 3MG/0.5MG NEB 3 ML VIAL NEB SCH ×2 (15:25→19:31)
[2021-06-21] MEDS ORDERED: DIGOXIN 0.125 MG TAB PO SCH (16:00)
[2021-06-21] MEDS: NYSTATIN POWDER 15GM BTL EXT SCH ×2 (16:06→20:09)
[2021-06-21] MEDS: LIDOCAINE 5% 1 PATCH TD SCH ×2 (17:10→20:12)
[2021-06-21] MEDS: ATORVASTATIN 40 MG TAB PO SCH (20:00)
[2021-06-21] MEDS: CALCIUM CARBONATE 1250MG TAB PO SCH (20:02)
[2021-06-21] MEDS: METOPROLOL TARTRATE 50 MG TAB PO SCH (20:04)
[2021-06-21] MEDS: PANTOprazole 40 MG TAB PO SCH (20:06)
[2021-06-21] MEDS: POTASSIUM CHLORIDE CRTAB 20 MEQ TABCR PO SCH (20:07)
[2021-06-21] MEDS: methylPREDNISolone 40 MG in SYRINGE 0 ML IV SCH (20:16)
[2021-06-21] MEDS: ONDANSETRON INJ 2 MG/ML 2 ML VIAL IV PRN (20:22)
[2021-06-22] MEDS: ALBUT/IPRATROP 3MG/0.5MG NEB 3 ML VIAL NEB SCH ×2 (07:46→11:11)
[2021-06-22 08:02] LABS: INR 1.2 (0.9-1.1); Prothrombin Time 11.7 Seconds (9.0-12.0)
[2021-06-22 08:06] LABS: BUN Creatinine Ratio 21.9 (10-20); Creatinine Clr Calc Pharmacy 76.6 ml/min; Est GFR (Non-African American) 76.8 ml/min; Potassium 5.3 mmol/L (3.5-5.1)
[2021-06-22] MEDS: MULTIVITAMIN TAB PO SCH (08:13)
[2021-06-22] MEDS: methylPREDNISolone 40 MG in SYRINGE 0 ML IV SCH ×2 (08:13→20:56)
[2021-06-22] MEDS: dilTIAZem HCL 120 MG CAPCR PO SCH (08:14)
[2021-06-22] MEDS: POTASSIUM CHLORIDE CRTAB 20 MEQ TABCR PO SCH (08:14)
[2021-06-22] MEDS: FUROSEMIDE 80 MG TAB PO SCH (08:14)
[2021-06-22] MEDS: SENNA 8.6 MG TAB PO SCH (08:15)
[2021-06-22] MEDS: TAMSULOSIN HCL 0.4 MG CAP PO SCH (08:15)
[2021-06-22] MEDS: PANTOprazole 40 MG TAB PO SCH ×2 (08:15→20:57)
[2021-06-22] MEDS: CALCIUM CARBONATE 1250MG TAB PO SCH ×2 (08:15→20:56)
[2021-06-22] MEDS: METOPROLOL TARTRATE 50 MG TAB PO SCH ×2 (08:15→20:56)
[2021-06-22] MEDS: AZITHROMYCIN 250 MG TAB PO SCH (08:15)
[2021-06-22] MEDS: UMECLIDINIUM/VILANTEROL 62.5/25MCG 7 PUFFS/INHALER INH SCH (08:16)
[2021-06-22] MEDS: NYSTATIN POWDER 15GM BTL EXT SCH ×3 (08:16→20:56)
[2021-06-22] MEDS: FLUTICASONE FUROATE 100MCG 14 PUFFS/INHALER INH SCH (08:17)
[2021-06-22] MEDS: ASPIRIN 81 MG ECTAB PO SCH (09:46)
[2021-06-22] MEDS ORDERED: WARFARIN SOD 10 MG TAB PO STA (10:59)
[2021-06-22] MEDS ORDERED: WARFARIN SOD 2.5 MG TAB PO STA (11:00)
--- NOTE | 2021-06-22 11:05 | Hospitalist Progress Note ---
Date of Service June 22, 2021 Assessment & Plan (1) COPD exacerbation: Plan: Acute on chronic COPD exacerbation Received Solu-Medrol 125 mg IV in ER Continue 40 mg IV twice daily today Convert to prednisone 40 mg daily if doing well tomorrow BiPAP nightly/with napping Titrate nasal cannula during day 2 SPO2 goal greater than 88 % Discussed with case management, patient will require set up with working BiPAP at home prior to discharge or is highly likely to be readmitted Continue azithromycin total 5-day course Continue fluticasone inhaled 1 puff daily Continue Umeclidinium/Vilanterol 1 puff daily (2) Acute on chronic respiratory failure with hypoxia and hypercapnia: Plan: See COPD exacerbation above Procalcitonin negative, no leukocytosis (3) Permanent atrial fibrillation: Plan: Continue diltiazem 120 mg p.o. every morning Continue metoprolol tartrate 150 mg p.o. twice daily Digoxin level 2.2, slightly supratherapeutic. Dose changed to digoxin 0.125 mg 6 times weekly, single dose held. Discussed with pharmacy (4) Sleep apnea: Plan: -Tolerating BiPAP overnight in hospital Patient reports he is noncompliant with CPAP/BiPAP at home, but this is because his mask is not working properly Continue NIV qHS/when napping (5) Supratherapeutic INR: Plan: Patient previously stable on Coumadin 7.5 mg 5 times per week, 10 mg twice per week On admission patient with elevated INR greater than 10, given 5 mg of vitamin K IV, repeat INR this morning 1.2 ? Whether first measurement was an error given rapid decrease over a large absolute value Discussed with pharmacy, warfarin resumed, 12.5 mg dose given today with normal schedule resume tomorrow INR check in the morning, adjust as needed (6) HTN (hypertension): Plan: Continue diltiazem Continue metoprolol (7) (HFpEF) heart failure with preserved ejection fraction: Plan: No acute exacerbation suspected Continue furosemide CXR: Cardiomegaly without evidence of congestive failure, chronic lung volume loss, small right pleural effusion with right greater than left bibasilar consolidation which could represent scarring/atelectasis versus pneumonia/pneumonitis aspiration. (8) Right shoulder pain: Plan: Suspected rotator cuff injury Not surgical candidate Again recommended PT with rehab and orthopedic follow up and more willing currently to do this (9) Hyperkalemia: Plan: Potassium 5.3 from 4.3 Creatinine normal Continue Lasix Patient appears relatively euvolemic Encourage oral free water, repeat BMP Plan: VTE Prophylaxis -on Coumadin, see above Diet - per prior SLT recommendations, regular moist diet, aspiration precautions Disposition - observation status to med/tele Admission and Anticipated Discharge Date Admission Date: June 21, 2021 Subjective Colt reports he feels a little bit better today, but still has shortness of breath more than normal. He reports he has been a little bit wheezy, and feels a little bit more short of breath after eating breakfast. Denies aspiration, coughing, choking, food regurgitation. He reports he has previously felt better at home when using his BiPAP, but this no longer works and has a problem where the mask fills with water so he has not been using it. He denies fever, chills, sweats, chest pain, palpitations overnight and this morning. Reports he is supposed to use BiPAP at night and when napping, has not been using this as noted. Review of Systems Review of Systems: Constitutional: Denies fever, chills, malaise Eyes: Denies vision change ENT: Denies ear pain, sore throat, sinus pain Cardiovascular: Denies Chest pain, chest pressure, palpitations, extremity swelling Respiratory: See HPI Gastrointestinal: Denies abdominal pain, nausea, vomiting, constipation, diarrhea Genitourinary: Denies dysuria, urinary frequency Musculoskeletal: Denies acute focal weakness, muscle aches/pain, joint aches/pain. Endorses fatigue. Integumentary:Denies acute rash, lesions, bruising Neurological: Denies headache, numbness, tingling, focal weakness Physical Exam Physical Exam: General: A&Ox3. NAD. Cooperative. HEENT: Atraumatic, normocephalic. Pulm: Prolonged expiration, poor air movement globally without overt rales/rhonchi/wheezes. No acute distress, clavicular retractions are present. Cardiac: Irregularly irregular, -mrg. Radial pulses intact and symmetrical. Abdominal: Softly distended, nontender. Bowel sounds intact. No rebound tenderness. Extremities: Warm, dry. 5/5 professor of biology strength, ankle dorsiflexion/plantarflexion. Trace pedal edema. PT pulse intact bilaterally. Results & Data Results & Data ([facility]) Vital Signs (Past 12 Hours) Vital Signs Temp Pulse Pulse Pulse Resp BP Pulse Ox 06/22/21 07:46 76 19 96 06/22/21 07:16 36.5 C 59 L 20 149/56 H 97 06/22/21 03:52 110 H 20 148/69 H 97 06/22/21 03:35 80 27 H 96 06/22/21 00:06 71 20 153/74 H 94 PG Care Time/CCT Total # of Minutes Spent Total Time Spent with Patient: Total time spent is greater than 50% in coordination of care (as documented) at patient's floor/unit and/or counseling patient: Coding Level of Care Code 86030 Subseq Hosp Care Lvl 3 Diagnoses COPD exacerbation J44.1 Acute on chronic respiratory failure with hypoxia and hypercapnia J96.21; J96.22 Permanent atrial fibrillation I48.21 Sleep apnea G47.30 Supratherapeutic INR R79.1 HTN (hypertension) I10 (HFpEF) heart failure with preserved ejection fraction I50.30 Right shoulder pain M25.511 Hyperkalemia E87.5
[2021-06-22] MEDS ORDERED: ALBUT/IPRATROP 3MG/0.5MG NEB 3 ML VIAL NEB PRN (13:28)
[2021-06-22] MEDS: ATORVASTATIN 40 MG TAB PO SCH (20:56)
[2021-06-23 06:19] LABS: Hematocrit (blood only) 41.4 % (42-52); Hemoglobin 12.6 g/dL (14.0-18.0); Immature Granulocytes # (auto) 0.03 K/uL (0.00-0.02); Immature Granulocytes % (auto) 0.3 %; Lymphocytes # (auto) 0.74 K/uL (1.2-3.4); Lymphocytes % (auto) 6.5 %; Mean Corpuscular Hemoglobin 32.6 pg (25-34); Mean Corpuscular Hgb Conc 30.4 g/dL (32-36); Mean Platelet Volume 10.9 fL (7.4-10.4); Monocytes % (auto) 4.4 %; Neutrophils # (auto) 10.14 K/uL (1.4-6.5); Neutrophils % (auto) 88.8 %; Platelet Count 352 K/uL (130-400); RDW Coefficient of Variation 14.6 % (11.5-14.5); RDW Standard Deviation 57.5 fL (36.4-46.3); Red Blood Count 3.87 M/uL (4.7-6.1); White Blood Count 11.41 K/uL (4.8-10.8)
[2021-06-23 06:31] LABS: INR 1.4 (0.9-1.1); Prothrombin Time 13.5 Seconds (9.0-12.0)
[2021-06-23 07:03] LABS: BUN Creatinine Ratio 30.2 (10-20); Calcium 9.3 mg/dl (8.5-10.1); Creatinine Clr Calc Pharmacy 71.4 ml/min; Est GFR (African American) 81.6 ml/min; Est GFR (Non-African American) 70.4 ml/min; Potassium 4.8 mmol/L (3.5-5.1)
[2021-06-23] MEDS: CALCIUM CARBONATE 1250MG TAB PO SCH ×2 (08:15→20:39)
[2021-06-23] MEDS: methylPREDNISolone 40 MG in SYRINGE 0 ML IV SCH ×2 (08:15→20:39)
[2021-06-23] MEDS: PANTOprazole 40 MG TAB PO SCH ×2 (08:15→20:40)
[2021-06-23] MEDS: METOPROLOL TARTRATE 50 MG TAB PO SCH ×2 (08:15→20:39)
[2021-06-23] MEDS: dilTIAZem HCL 120 MG CAPCR PO SCH (08:16)
[2021-06-23] MEDS: SENNA 8.6 MG TAB PO SCH (08:16)
[2021-06-23] MEDS: AZITHROMYCIN 250 MG TAB PO SCH (08:16)
[2021-06-23] MEDS: TAMSULOSIN HCL 0.4 MG CAP PO SCH (08:16)
[2021-06-23] MEDS: FUROSEMIDE 80 MG TAB PO SCH (08:16)
[2021-06-23] MEDS: ASPIRIN 81 MG ECTAB PO SCH (08:16)
[2021-06-23] MEDS: MULTIVITAMIN TAB PO SCH (08:17)
[2021-06-23] MEDS: UMECLIDINIUM/VILANTEROL 62.5/25MCG 7 PUFFS/INHALER INH SCH (08:17)
[2021-06-23] MEDS: LIDOCAINE 5% 1 PATCH TD SCH (08:17)
[2021-06-23] MEDS: FLUTICASONE FUROATE 100MCG 14 PUFFS/INHALER INH SCH (08:18)
[2021-06-23] MEDS: NYSTATIN POWDER 15GM BTL EXT SCH ×3 (08:18→20:40)
--- NOTE | 2021-06-23 09:56 | Hospitalist Progress Note ---
Date of Service June 23, 2021 Assessment & Plan (1) COPD exacerbation: Plan: Acute on chronic COPD exacerbation Received Solu-Medrol 125 mg IV in ER Steroids converted to prednisone 40 mg daily BiPAP nightly/with napping Titrate nasal cannula during day 2 SPO2 goal greater than 88 % Discussed with case management, patient will require set up with working BiPAP at home prior to discharge or is highly likely to be readmitted Continue azithromycin total 5-day course Continue fluticasone inhaled 1 puff daily Continue Umeclidinium/Vilanterol 1 puff daily (2) Community acquired pneumonia: Plan: Patient with some improvement on COPD treatment as above, but continues to feel feverish with chills overnight with cough CXR shows there is a small right pleural effusion with right greater than left bibasilar consolidation. This could represent scarring/atelectasis versus pneumonia/aspiration pneumonitis. Compared with prior, increased right lower lobe opacity compared to prior, patient clinical presentation suspicious for pneumonia. Given concern for above in right lower lobe finding with potential concern for aspiration and prior speech assessment recommending aspiration precautions, will add adjunct Rocephin/Flagyl for total 5-day course and follow for clinical improvement Leukocytosis unreliable 2/2 steroids as above (3) Acute on chronic respiratory failure with hypoxia and hypercapnia: Plan: See COPD exacerbation above Procalcitonin negative, no leukocytosis (4) Permanent atrial fibrillation: Plan: Continue diltiazem 120 mg p.o. every morning Continue metoprolol tartrate 150 mg p.o. twice daily Digoxin level 2.2, slightly supratherapeutic. Dose changed to digoxin 0.125 mg 6 times weekly, single dose held. Discussed with pharmacy (5) Sleep apnea: Plan: -Tolerating BiPAP overnight in hospital Patient reports he is noncompliant with CPAP/BiPAP at home, but this is because his mask is not working properly Continue NIV qHS/when napping (6) Supratherapeutic INR: Plan: Patient previously stable on Coumadin 7.5 mg 5 times per week, 10 mg twice per week On admission patient with elevated INR greater than 10, given 5 mg of vitamin K IV, repeat INR following morning 1.2 ? Whether first measurement was an error given rapid decrease over a large absolute value Discussed with pharmacy, warfarin resumed, 12.5 mg dose given 06/23 Warfarin uptrending, continue INR checks, adjust dosing as needed (7) HTN (hypertension): Plan: Continue diltiazem Continue metoprolol (8) (HFpEF) heart failure with preserved ejection fraction: Plan: No acute exacerbation suspected Continue furosemide CXR: Cardiomegaly without evidence of congestive failure, chronic lung volume loss, small right pleural effusion with right greater than left bibasilar consolidation which could represent scarring/atelectasis versus pneumonia/pneumonitis aspiration. (9) Right shoulder pain: Plan: Suspected rotator cuff injury Not surgical candidate Again recommended PT with rehab and orthopedic follow up and more willing currently to do this (10) Hyperkalemia: Plan: Potassium 5.3 from 4.3 Creatinine normal Continue Lasix Patient appears relatively euvolemic Encourage oral free water, repeat BMP Plan: VTE Prophylaxis -on Coumadin, see above Diet - per prior SLT recommendations, regular moist diet, aspiration precautions Disposition - observation status to med/tele Admission and Anticipated Discharge Date Admission Date: June 21, 2021 Subjective Patient seen at bedside this morning. He reports he feels constipated. Also notes he had some chills and thinks he was a little sweaty but is not sure if he had a fever last night. Feels his breathing is a little better, but has a cough this morning. Denies urinary pain/retention. Continues to endorse fatigue. Is on 4 L nasal cannula, denies shortness of breath at rest but endorses some shortness of breath with exertion and moving around in bed. Review of Systems Review of Systems: Constitutional: See subjective Eyes: Denies vision change ENT: Denies ear pain, sore throat, sinus pain Cardiovascular: Denies Chest pain, chest pressure, palpitations, extremity swelling Respiratory: See subjective Gastrointestinal: Denies abdominal pain, nausea, vomiting, constipation, diarrhea Genitourinary: Denies dysuria, urinary frequency Musculoskeletal: Denies acute focal weakness, muscle aches/pain, joint aches/pain. Endorses fatigue. Integumentary:Denies acute rash, lesions, bruising Neurological: Denies headache, numbness, tingling, focal weakness Physical Exam Physical Exam: General: A&Ox3. NAD. Cooperative. HEENT: Atraumatic, normocephalic. Pulm: RRL with diminished air movement/quieted. Prolonged expiration, poor air movement globally without overt rales/rhonchi/wheezes. No acute distress, are not present today Cardiac: Irregularly irregular, -mrg. Radial pulses intact and symmetrical. Abdominal: Softly distended, nontender. Bowel sounds intact. No rebound tenderness. Extremities: Warm, dry. 5/5 career development consultant strength, ankle dorsiflexion/plantarflexion. Trace pedal edema. PT pulse intact bilaterally. Results & Data Results & Data ([facility]) Vital Signs (Past 12 Hours) Vital Signs Temp Pulse Pulse Pulse Resp BP BP 06/23/21 08:07 36.3 C L 68 20 136/78 06/23/21 07:28 70 06/23/21 04:32 67 21 06/23/21 02:53 36.5 C 83 18 143/83 H 06/22/21 23:04 87 21 06/22/21 23:00 36.6 C 87 17 136/66 Pulse Ox 06/23/21 08:07 97 06/23/21 07:28 06/23/21 04:32 97 06/23/21 02:53 94 06/22/21 23:04 100 06/22/21 23:00 100 PG Care Time/CCT Total # of Minutes Spent Total Time Spent with Patient: Total time spent is greater than 50% in coordination of care (as documented) at patient's floor/unit and/or counseling patient: Coding Level of Care Code 08506 Subseq Hosp Care Lvl 3 Diagnoses COPD exacerbation J44.1 Acute on chronic respiratory failure with hypoxia and hypercapnia J96.21; J96.22 Permanent atrial fibrillation I48.21 Sleep apnea G47.30 Supratherapeutic INR R79.1 HTN (hypertension) I10 (HFpEF) heart failure with preserved ejection fraction I50.30 Right shoulder pain M25.511 Hyperkalemia E87.5 Community acquired pneumonia J18.9
[2021-06-23] MEDS ORDERED: MAGNESIUM CITRATE 296 ML/BTL PO PRN (10:00)
[2021-06-23] MEDS: cefTRIAXone SODIUM 2,000 MG in DEXTROSE 5% 50 ML IV SCH (11:51)
[2021-06-23] MEDS: WARFARIN SOD 7.5 MG TAB PO SCH (16:27)
[2021-06-23] MEDS: ONDANSETRON INJ 2 MG/ML 2 ML VIAL IV PRN (19:47)
[2021-06-23] MEDS ORDERED: MAGNESIUM HYDROXIDE SUSP 30 ML UDC PO PRN (19:57)
[2021-06-23] MEDS: ATORVASTATIN 40 MG TAB PO SCH (20:38)
[2021-06-23] MEDS: POLYETHYLENE (MIRALAX) 17 GM PACK PO SCH (20:40)
[2021-06-24 06:34] LABS: INR 2.6 (0.9-1.1); Prothrombin Time 24.2 Seconds (9.0-12.0)
[2021-06-24 07:00] LABS: BUN Creatinine Ratio 35.8 (10-20); Calcium 8.7 mg/dl (8.5-10.1); Creatinine Clr Calc Pharmacy 69.2 ml/min; Est GFR (African American) 78.8 ml/min; Potassium 4.2 mmol/L (3.5-5.1)
[2021-06-24] MEDS: NYSTATIN POWDER 15GM BTL EXT SCH ×3 (08:39→20:39)
[2021-06-24] MEDS: LIDOCAINE 5% 1 PATCH TD SCH (08:40)
[2021-06-24] MEDS: POLYETHYLENE (MIRALAX) 17 GM PACK PO SCH ×3 (08:40→20:39)
[2021-06-24] MEDS: MULTIVITAMIN TAB PO SCH (08:40)
[2021-06-24] MEDS: PANTOprazole 40 MG TAB PO SCH ×2 (08:40→20:38)
[2021-06-24] MEDS: methylPREDNISolone 40 MG in SYRINGE 0 ML IV SCH ×2 (08:40→20:37)
[2021-06-24] MEDS: dilTIAZem HCL 120 MG CAPCR PO SCH (08:40)
[2021-06-24] MEDS: TAMSULOSIN HCL 0.4 MG CAP PO SCH (08:41)
[2021-06-24] MEDS: SENNA 8.6 MG TAB PO SCH (08:41)
[2021-06-24] MEDS: FUROSEMIDE 80 MG TAB PO SCH (08:41)
[2021-06-24] MEDS: ASPIRIN 81 MG ECTAB PO SCH (08:41)
[2021-06-24] MEDS: FLUTICASONE FUROATE 100MCG 14 PUFFS/INHALER INH SCH (08:42)
[2021-06-24] MEDS: UMECLIDINIUM/VILANTEROL 62.5/25MCG 7 PUFFS/INHALER INH SCH (08:42)
[2021-06-24] MEDS: AZITHROMYCIN 250 MG TAB PO SCH (08:42)
[2021-06-24] MEDS: CALCIUM CARBONATE 1250MG TAB PO SCH ×2 (08:42→20:38)
[2021-06-24] MEDS: METOPROLOL TARTRATE 50 MG TAB PO SCH ×2 (08:42→20:38)
[2021-06-24] MEDS: cefTRIAXone SODIUM 2,000 MG in DEXTROSE 5% 50 ML IV SCH (10:11)
--- NOTE | 2021-06-24 13:41 | Hospitalist Progress Note ---
Date of Service June 24, 2021 Assessment & Plan (1) COPD exacerbation: Plan: Acute on chronic COPD exacerbation Patient remains with increased oxygen requirement and shortness of breath not at baseline. Received Solu-Medrol 125 mg IV in ER Steroids converted to prednisone 40 mg daily BiPAP nightly/with napping Titrate nasal cannula during day 2 SPO2 goal greater than 88 % Discussed with case management, patient will require set up with working BiPAP prior to return home or is highly likely to be readmitted Continue azithromycin total 5-day course Continue fluticasone inhaled 1 puff daily Continue Umeclidinium/Vilanterol 1 puff daily (2) Community acquired pneumonia: Plan: Patient with some improvement on COPD treatment as above, but continues to feel feverish with chills overnight with cough CXR shows there is a small right pleural effusion with right greater than left bibasilar consolidation. This could represent scarring/atelectasis versus pneumonia/aspiration pneumonitis. Compared with prior, increased right lower lobe opacity compared to prior, patient clinical presentation suspicious for pneumonia. Given concern for above in right lower lobe finding with potential concern for aspiration and prior speech assessment recommending aspiration precautions, added adjunct Rocephin/Flagyl for total 5-day course and follow for clinical improvement Leukocytosis unreliable 2/2 steroids as above -Equivocal clinical status today, continue to follow. Patient remains with increased oxygen requirements MRSA nare pending (3) Acute on chronic respiratory failure with hypoxia and hypercapnia: Plan: See COPD exacerbation above Procalcitonin negative, no leukocytosis (4) Permanent atrial fibrillation: Plan: Continue diltiazem 120 mg p.o. every morning Continue metoprolol tartrate 150 mg p.o. twice daily Digoxin level 2.2, slightly supratherapeutic. Dose changed to digoxin 0.125 mg 6 times weekly, single dose held. Discussed with pharmacy (5) Sleep apnea: Plan: -Tolerating BiPAP overnight in hospital Patient reports he is noncompliant with CPAP/BiPAP at home, but this is because his mask is not working properly Continue NIV qHS/when napping (6) Supratherapeutic INR: Plan: Patient previously stable on Coumadin 7.5 mg 5 times per week, 10 mg twice per week On admission patient with elevated INR greater than 10, given 5 mg of vitamin K IV, repeat INR following morning 1.2 ? Whether first measurement was an error given rapid decrease over a large absolute value Discussed with pharmacy, warfarin resumed, 12.5 mg dose given 06/23 06/24: INR therapeutic 2.6 Continue home warfarin dosing (7) HTN (hypertension): Plan: Continue diltiazem Continue metoprolol (8) (HFpEF) heart failure with preserved ejection fraction: Plan: No acute exacerbation suspected Continue furosemide CXR: Cardiomegaly without evidence of congestive failure, chronic lung volume loss, small right pleural effusion with right greater than left bibasilar consolidation which could represent scarring/atelectasis versus pneumonia/pneumonitis aspiration. (9) Right shoulder pain: Plan: Suspected rotator cuff injury Not surgical candidate Again recommended PT with rehab and orthopedic follow up and more willing currently to do this (10) Hyperkalemia: Plan: Potassium normalized, remains normal Creatinine normal Continue Lasix Patient appears relatively euvolemic Encourage oral free water, repeat BMP Plan: VTE Prophylaxis -on Coumadin, see above Diet - per prior SLT recommendations, regular moist diet, aspiration precautions Disposition - observation status to med/tele Admission and Anticipated Discharge Date Admission Date: June 21, 2021 Subjective Brice seen at the bedside. He reports he continues to feel shortness of breath, worse than his baseline. He continues to feel very weak, and does not feel he can safely ambulate at home. He would like to engage in rehab. Continues to have fever/chills overnight, fatigue this morning. Intermittent cough productive for spit, denies mucus production. Denies nausea/vomiting/diarrhea/constipation/extremity pain this morning. Review of Systems Review of Systems: Constitutional: See subjective Eyes: Denies vision change ENT: Denies ear pain, sore throat, sinus pain Cardiovascular: Denies Chest pain, chest pressure, palpitations, extremity swelling Respiratory: See subjective Gastrointestinal: Denies abdominal pain, nausea, vomiting, constipation, diarrhea Genitourinary: Denies dysuria, urinary frequency Musculoskeletal: Denies acute focal weakness, muscle aches/pain, joint aches/pain. Endorses fatigue. Integumentary:Denies acute rash, lesions, bruising Neurological: Denies headache, numbness, tingling, focal weakness Physical Exam Physical Exam: General: A&Ox3. NAD. Cooperative. Appears fatigued. HEENT: Atraumatic, normocephalic. Visual acuity and hearing grossly intact. Pulm: RRL with diminished air movement/quieted. Prolonged expiration, poor air movement globally without overt rales/rhonchi/wheezes. No acute distress, are not present today Cardiac: Irregularly irregular, -mrg. Radial pulses intact and symmetrical. Abdominal: Softly distended, nontender. Bowel sounds intact. No rebound tenderness. Extremities: Warm, dry. 5/5 catcher filter tip strength, ankle dorsiflexion/plantarflexion. Trace pedal edema. PT pulse intact bilaterally. Results & Data Results & Data ([facility]) Vital Signs (Past 12 Hours) Vital Signs Temp Pulse Pulse Pulse Resp BP BP 06/24/21 12:16 36.3 C L 81 18 132/71 06/24/21 07:52 36.4 C L 74 18 131/71 06/24/21 02:43 35.7 C L 86 18 154/79 H 06/24/21 02:27 72 19 Pulse Ox 06/24/21 12:16 94 06/24/21 07:52 92 06/24/21 02:43 95 06/24/21 02:27 95 PG Care Time/CCT Total # of Minutes Spent Total Time Spent with Patient: Total time spent is greater than 50% in coordination of care (as documented) at patient's floor/unit and/or counseling patient: Coding Level of Care Code 57205 Subseq Hosp Care Lvl 2 Diagnoses COPD exacerbation J44.1 Community acquired pneumonia J18.9 Acute on chronic respiratory failure with hypoxia and hypercapnia J96.21; J96.22 Permanent atrial fibrillation I48.21 Sleep apnea G47.30 Supratherapeutic INR R79.1 HTN (hypertension) I10 (HFpEF) heart failure with preserved ejection fraction I50.30 Right shoulder pain M25.511 Hyperkalemia E87.5
[2021-06-24] MEDS: DIGOXIN 0.125 MG TAB PO SCH (15:56)
[2021-06-24] MEDS: WARFARIN SOD 7.5 MG TAB PO SCH (15:57)
[2021-06-24] MEDS ORDERED: INFLUENZA VACCINE HIGH DOSE PF 65+ 0.7 ML SYR IM ONE (17:16)
[2021-06-24] MEDS: ATORVASTATIN 40 MG TAB PO SCH (20:39)
[2021-06-25 06:25] LABS: INR 4.4 (0.9-1.1); Prothrombin Time 39.8 Seconds (9.0-12.0)
[2021-06-25 06:33] LABS: BUN Creatinine Ratio 39.7 (10-20); Calcium 8.7 mg/dl (8.5-10.1); Creatinine Clr Calc Pharmacy 76.6 ml/min; Est GFR (Non-African American) 76.8 ml/min; Potassium 4.5 mmol/L (3.5-5.1)
[2021-06-25] MEDS: UMECLIDINIUM/VILANTEROL 62.5/25MCG 7 PUFFS/INHALER INH SCH (10:02)
[2021-06-25] MEDS: FLUTICASONE FUROATE 100MCG 14 PUFFS/INHALER INH SCH (10:02)
[2021-06-25] MEDS: methylPREDNISolone 40 MG in SYRINGE 0 ML IV SCH ×2 (10:03→21:11)
[2021-06-25] MEDS: ASPIRIN 81 MG ECTAB PO SCH (10:04)
[2021-06-25] MEDS: dilTIAZem HCL 120 MG CAPCR PO SCH (10:04)
[2021-06-25] MEDS: FUROSEMIDE 80 MG TAB PO SCH (10:04)
[2021-06-25] MEDS: SENNA 8.6 MG TAB PO SCH (10:04)
[2021-06-25] MEDS: CALCIUM CARBONATE 1250MG TAB PO SCH ×2 (10:04→21:11)
[2021-06-25] MEDS: METOPROLOL TARTRATE 50 MG TAB PO SCH ×2 (10:04→21:11)
[2021-06-25] MEDS: MULTIVITAMIN TAB PO SCH (10:04)
[2021-06-25] MEDS: PANTOprazole 40 MG TAB PO SCH ×2 (10:04→21:11)
[2021-06-25] MEDS: TAMSULOSIN HCL 0.4 MG CAP PO SCH (10:04)
[2021-06-25] MEDS: AZITHROMYCIN 250 MG TAB PO SCH (10:04)
[2021-06-25] MEDS: NYSTATIN POWDER 15GM BTL EXT SCH ×3 (10:05→21:10)
[2021-06-25] MEDS: LIDOCAINE 5% 1 PATCH TD SCH (10:05)
[2021-06-25] MEDS: cefTRIAXone SODIUM 2,000 MG in DEXTROSE 5% 50 ML IV SCH (10:05)
[2021-06-25] MEDS: POLYETHYLENE (MIRALAX) 17 GM PACK PO SCH ×2 (10:06→21:12)
[2021-06-25] MEDS: ONDANSETRON INJ 2 MG/ML 2 ML VIAL IV PRN (14:10)
--- NOTE | 2021-06-25 16:00 | Hospitalist Progress Note ---
Date of Service June 25, 2021 Assessment & Plan (1) COPD exacerbation: Plan: Acute on chronic COPD exacerbation Patient remains with increased oxygen requirement and shortness of breath not at baseline. Received Solu-Medrol 125 mg IV in ER Steroids converted to prednisone 40 mg daily, taper on discharge BiPAP nightly/with napping, will check ABG in the morning to see morning CO2 level Titrate nasal cannula during day 2 SPO2 goal greater than 88 %, stable on 3L Discussed with case management, patient will require set up with working BiPAP prior to return home or is highly likely to be readmitted Continue azithromycin total 5-day course Continue fluticasone inhaled 1 puff daily Continue Umeclidinium/Vilanterol 1 puff daily can go home when home BIPAP is arranged (2) Community acquired pneumonia: Plan: Patient with some improvement on COPD treatment as above CXR shows possible RLL pneumonia Rocephin/Flagyl for total 5-day course and follow for clinical improvement Leukocytosis unreliable 2/2 steroids as above (3) Acute on chronic respiratory failure with hypoxia and hypercapnia: Plan: See COPD exacerbation above Procalcitonin negative, no leukocytosis treat with Prednisone, short course of steroids, use BIPAP HS and when napping oxygen saturation goal is 88-90% check morning ABG BMP shows HCO3 up at 43 (4) Permanent atrial fibrillation: Plan: Continue diltiazem 120 mg p.o. every morning Continue metoprolol tartrate 150 mg p.o. twice daily Digoxin level 2.2, slightly supratherapeutic. Dose changed to digoxin 0.125 mg 6 times weekly, single dose held. Discussed with pharmacy INR is up today (5) Sleep apnea: Plan: -Tolerating BiPAP overnight in hospital Patient reports he is noncompliant with CPAP/BiPAP at home, but this is because his mask is not working properly Continue NIV qHS/when napping (6) Supratherapeutic INR: Plan: Patient previously stable on Coumadin 7.5 mg 5 times per week, 10 mg twice per week On admission patient with elevated INR greater than 10, given 5 mg of vitamin K IV, repeat INR following morning 1.2 ? Whether first measurement was an error given rapid decrease over a large absolute value Discussed with pharmacy, warfarin resumed, 12.5 mg dose given 06/23 06/25: INR up to 4.4 resume at 5mg daily on 06/27, hold tomorrow (7) HTN (hypertension): Plan: Continue diltiazem Continue metoprolol (8) (HFpEF) heart failure with preserved ejection fraction: Plan: No acute exacerbation suspected Continue furosemide CXR: Cardiomegaly without evidence of congestive failure, chronic lung volume loss, small right pleural effusion with right greater than left bibasilar consolidation which could represent scarring/atelectasis versus pneumonia/pneumonitis aspiration. (9) Right shoulder pain: Plan: Suspected rotator cuff injury Not surgical candidate Again recommended PT with rehab and orthopedic follow up and more willing c urrently to do this (10) Hyperkalemia: Plan: Potassium normalized, remains normal Creatinine normal Continue Lasix Patient appears relatively euvolemic Encourage oral free water, repeat BMP Plan: VTE Prophylaxis -on Coumadin, see above Diet - per prior SLT recommendations, regular moist diet, aspiration precautions Disposition - full admission Admission and Anticipated Discharge Date Admission Date: June 24, 2021 Subjective patient doing fine today, only complaint is some epigastric pain, says he needs to move bowels more had a BM today but very hard, small he is breathing okay, using BIPAP when napping and all night feels comfortable on 3L when awake no chest pain, no nausea discussed that we need to set up BIPAP with mask at home Review of Systems Review of Systems: All systems reviewed & are unremarkable except as noted in Subjective Respiratory: + cough and + dyspnea on exertion Gastrointestinal: + abdominal pain (epigastric), + nausea and + constipation Physical Exam Physical Exam: General: well developed, well nourished, obese male, no acute distress, comfortable Neck: supple, trachea midline, normal thyroid Lungs: clear to auscultation bilaterally, diminished breath sounds, normal respiratory effort, mild accessory muscle use, no distress Heart: regular S1 and S2, no murmur, peripheral pulses normal, capillary refill normal, no edema Abdomen: soft, NT, ND, + BS, no hepatomegaly, normal to percussion Extremities: normal in appearance, no cyanosis, no petechiae, strength is 5/5 bilaterally Neuro: awake, cooperative, moves all extremities, no focal motor deficits, CN II-XII intact, sensation in extremities intact, normal speech Skin: warm, dry, no rash, normal turgor Psych: Awake, alert oriented x 3, euthymic affect Results & Data Results & Data ([facility]) Vital Signs (Past 12 Hours) Vital Signs Temp Pulse Pulse Resp BP BP Pulse Ox 06/25/21 14:59 36.7 C 91 H 20 150/84 H 91 06/25/21 11:16 36.4 C L 85 18 143/76 H 95 06/25/21 08:00 76 06/25/21 07:46 36.6 C 84 20 143/74 H 91 Laboratory Results Laboratory Results - last 24 hr 06/24/21 06/25/21 06/25/21 16:00 05:23 05:23 PT 39.8 H INR 4.4 H Sodium 141 Potassium 4.5 Chloride 98 Carbon Dioxide 43 H* Anion Gap 0 L BUN 37 H Creatinine 0.94 Est Cr Clr Drug Dosing 76.6 Est GFR ( Amer) 89.0 Est GFR (Non-Af Amer) 76.8 BUN/Creatinine Ratio 39.7 H Glucose 129 H Calcium 8.7 Nasal Screen MRSA (PCR) Negative Medications Administered Current Inpatient Medications Acetaminophen (Acetaminophen 325 Mg Tab) 650 mg PO Q4H PRN PRN Reason: Pain or Fever Stop: 07/21/21 14:43 Albuterol (Albut/Ipratrop 3mg/0.5mg Neb 3 Ml Vial) 3 ml NEB QIDR PRN PRN Reason: Shortness Of Breath Or Wheezing Stop: 07/21/21 14:59 Aspirin (Aspirin 81 Mg Ectab) [facility] [place] Stop: 07/22/21 08:59 Last Admin: 06/25/21 10:04 Dose: 81 mg Documented by: Atorvastatin Calcium (Atorvastatin 40 Mg Tab) 40 mg PO [facility] Stop: 07/21/21 20:59 Last Admin: 06/24/21 20:39 Dose: 40 mg Documented by: Azithromycin (Azithromycin 250 Mg Tab) 250 [facility] [place] Stop: 06/26/21 08:59 Last Admin: 06/25/21 10:04 Dose: 250 mg Documented by: Calcium Carbonate (Calcium Carbonate 1250mg Tab) 1,250 mg PO BID [facility] Stop: 07/21/21 20:59 Last Admin: 06/25/21 10:04 Dose: 1,250 mg Documented by: Digoxin (Digoxin 0.125 Mg Tab) 0.125 mg PO SuMoTuWeThSa@1600 [facility] Stop: 07/24/21 15:59 Last Admin: 06/24/21 15:56 Dose: 0.125 mg Documented by: Diltiazem HCl (Diltiazem Hcl 120 Mg Capcr) 120 mg PO QAM [facility] Stop: 07/22/21 08:59 Last Admin: 06/25/21 10:04 Dose: 120 mg Documented by: Fluticasone Furoate (Fluticasone Furoate 100mcg 14 Puffs/Inhaler) 1 puffs INH DAILY [facility] ALBERTO Stop: 07/22/21 08:59 Last Admin: 06/25/21 10:02 Dose: 1 puffs Documented by: Furosemide (Furosemide 80 Mg Tab) 80 mg PO QAM [facility] Stop: 07/22/21 08:59 Last Admin: 06/25/21 10:04 Dose: 80 mg Documented by: Methylprednisolone 40 mg/ (Syringe) 0.64 mls @ 1.5 mls/min IV BID [facility] Stop: 07/21/21 20:59 Last Admin: 06/25/21 10:03 Dose: 1.5 mls/min Documented by: Ceftriaxone Sodium 2,000 mg/ (Dextrose) 70 mls @ 100 mls/hr IV DAILY [facility]; Protocol Stop: 06/30/21 10:29 Last Infusion: 06/25/21 10:47 Dose: Infused Documented by: Lidocaine (Lidocaine 5% 1 Patch) 1 patch TD QAM [facility] Stop: 07/21/21 15:14 Last Admin: 06/25/21 10:05 Dose: 1 patch Documented by: Magnesium Citrate (Magnesium Citrate 296 Ml/Btl) 148 ml PO TODAY@ PRN PRN Reason: constipation Stop: 07/23/21 09:59 Last Admin: 06/23/21 11:50 Dose: 148 ml Documented by: Magnesium Hydroxide (Magnesium Hydroxide Susp 30 Ml Udc) 30 ml PO Q6H PRN PRN Reason: Constipation Stop: 07/23/21 19:56 Last Admin: 06/24/21 06:27 Dose: 30 ml Documented by: Metoprolol Tartrate (Metoprolol Tartrate 50 Mg Tab) 150 mg PO BID [facility] Stop: 07/21/21 20:59 Last Admin: 06/25/21 10:04 Dose: 150 mg Documented by: Miscellaneous (Remove Lidoderm Patch) 1 ea N/A DAILY@2100 [facility] Stop: 07/21/21 20:59 Last Admin: 06/24/21 20:39 Dose: 1 ea Documented by: Multivitamins (Multivitamin Tab) 1 tab PO QAM [facility] AL[facility]ERTO Stop: 07/22/21 08:59 Last Admin: 06/25/21 10:04 Dose: 1 tab Documented by: Nystatin (Nystatin Powder 15gm Btl) 1 appln EXT TID JOSE ALBERTO Stop: 07/01/21 14:44 Last Admin: 06/25/21 14:10 Dose: 1 appln Documented by: Ondansetron HCl (Ondansetron Inj 2 Mg/Ml 2 Ml Vial) 4 mg IV Q6H PRN PRN Reason: Nausea Stop: 07/21/21 14:43 Last Admin: 06/25/21 14:10 Dose: 4 mg Documented by: Pantoprazole Sodium (Pantoprazole 40 Mg Tab) 40 mg PO BID JO[facility] ALBERTO Stop: 07/21/21 20:59 Last Admin: 06/25/21 10:04 Dose: 40 mg Documented by: Polyethylene Glycol (Polyethylene (Miralax) 17 Gm Pack) 17 gm PO BID [facility] ALBERTO Stop: 07/23/21 20:59 Last Admin: 06/25/21 10:06 Dose: Not Given Documented by: Potassium Chloride (Potassium Chloride Crtab 20 Meq Tabcr) 20 meq PO BID JOSE ALBERTO Stop: 07/21/21 20:59 Last Admin: 06/22/21 08:14 Dose: 20 meq Documented by: Sennosides (Senna 8.6 Mg Tab) 17.2 mg PO QAM JOSE ALBERTO Stop: 07/22/21 08:59 Last Admin: 06/25/21 10:04 Dose: 17.2 mg Documented by: Tamsulosin HCl (Tamsulosin Hcl 0.4 Mg Cap) 0.4 mg PO DAILY JOSE ALBERTO Stop: 07/22/21 08:59 Last Admin: 06/25/21 10:04 Dose: 0.4 mg Documented by: Umeclidinium/Vilanterol (Umeclidinium/Vilanterol 62.5/25mcg 7 Puffs/Inhaler) 1 puffs INH DAILY JOSE ALBERTO Stop: 07/22/21 08:59 Last Admin: 06/25/21 10:02 Dose: 1 puffs Documented by: Warfarin Sodium (Warfarin Sod 10 Mg Tab) 10 mg PO TuTh@1600 [facility] ALBERT[facility] Stop: 07/27/21 15:59 Warfarin Sodium (Warfarin Sod 7.5 Mg Tab) 7.5 mg PO SuMoAkosua@1600 [facility] Stop: 07/23/21 15:59 Last Admin: 06/24/21 15:57 Dose: 7.5 mg Documented by: PG Care Time/CCT Total # of Minutes Spent Total Time Spent with Patient: Total time spent is greater than 50% in coordination of care (as documented) at patient's floor/unit and/or counseling patient: Coding Level of Care Code 25195 Subseq Hosp Care Lvl 3 Diagnoses COPD exacerbation J44.1 Community acquired pneumonia J18.9 Acute on chronic respiratory failure with hypoxia and hypercapnia J96.21; J96.22 Permanent atrial fibrillation I48.21 Sleep apnea G47.30 Supratherapeutic INR R79.1 HTN (hypertension) I10 (HFpEF) heart failure with preserved ejection fraction I50.30 Right shoulder pain M25.511 Hyperkalemia E87.5
[2021-06-25] MEDS: DIGOXIN 0.125 MG TAB PO SCH (16:47)
[2021-06-25] MEDS: ATORVASTATIN 40 MG TAB PO SCH (21:11)
--- NOTE | 2021-06-26 08:14 | Hospitalist Progress Note ---
Date of Service June 26, 2021 Assessment & Plan (1) COPD exacerbation: Plan: Acute on chronic COPD exacerbation -- on 2.5L chronically at home and has BiPAP at home upon questioning, however he needs a new mask and tubing. CM assisting and having call [employer] for new supplies Improving slightly, about at baseline per patient when asked Got Solumedrol 125mg IV in ER and was to have been converted to PO but this was not done and patient was on methylprednisolone 40mg BID x 8 doses --> Changed to prednisone 40mg daily today (06/26) and taper at d/c Ceftriaxone/Azithromycin -- completed 5 doses of Azithromycin today, 5th dose Rocephin for tomorrow AM To continue fluticasone, umeclidinium/vilanterol Asked RN to titrate O2 --> weaned to 2.5L today and O2 sat in 90s. Supplemental to keep goal >88% To continue BiPAP HS and with napping during the day -- he has been compliant with such PT/OT with recs for rehab. CM following --> plan for [facility] when medically stable and will aim for tomorrow if patient continues to remain stable (2) Community acquired pneumonia: Plan: Patient with some improvement on COPD treatment as above, however CXR with possible RLL pneumonia on imaging however does have effusions and could have been from some compressive atelectasis/scarring as well Cough without change in sputum color/quantity. Procalcitonin negative CXR with improvement aeration within R lung base, small b/l effusion without evidence for pulm edema. chronic post-op changed within R hemithorax Rocephin/Azithro x 5 days as above Back on baseline O2 requirement (3) Acute on chronic respiratory failure with hypoxia and hypercapnia: Plan: as above Procalcitonin negative, no leukocytosis BMP shows HCO3 up at 43 --> improved to 39 this morning. ABG with CO2 64 (was 69 on VBG on admit) treat with Prednisone, short course of steroids, use BIPAP HS and when napping oxygen saturation goal is 88-90% CPAP/BiPAP while napping, BiPAP at night. To get new tubing/mask from [employer] as already has BiPAP at home but hasn't been able to use. F/u pulm at d/c (4) Permanent atrial fibrillation: Plan: Continue diltiazem 120 mg p.o. every morning Continue metoprolol tartrate 150 mg p.o. twice daily Digoxin level 2.2, slightly supratherapeutic. --> Dose changed to digoxin 0.125 mg 6 times weekly, single dose held. Discussed with pharmacy INR is up today at 5 but no s/sx bleeding. (INR elevated to 10 earlier in stay and got dose of Vit K). Abx to be completed tomorrow and suspect will trend down (5) Sleep apnea: Plan: Tolerating BiPAP overnight in hospital Patient reports he is noncompliant with CPAP/BiPAP at home, but this is because his mask is not working properly Continue NIV qHS/when napping (6) Supratherapeutic INR: Plan: Patient previously stable on Coumadin 7.5 mg 5 times per week, 10 mg twice per week On admission patient with elevated INR greater than 10, given 5 mg of vitamin K IV, repeat INR following morning 1.2 ? Whether first measurement was an error given rapid decrease over a large absolute value Discussed with pharmacy, warfarin resumed, 12.5 mg dose given 06/23 06/25: INR up to 4.4 resume at 5mg daily on 06/27 (from prior ), hold dose for today (06/26) INR in AM (7) HTN (hypertension): Plan: Continue diltiazem Continue metoprolol BP stable (8) (HFpEF) heart failure with preserved ejection fraction: Plan: No acute exacerbation suspected Continue furosemide CXR: Cardiomegaly without evidence of congestive failure, chronic lung volume loss, small right pleural effusion with right greater than left bibasilar consolidation which could represent scarring/atelectasis versus pneumonia/pneumonitis aspiration. (9) Right shoulder pain: Plan: Suspected rotator cuff injury Not surgical candidate Again recommended PT with rehab and orthopedic follow up and more willing currently to do this (10) Hyperkalemia: Plan: Potassium normalized, remains normal Creatinine normal Continue Lasix Patient appears relatively euvolemic (trace b/l LE edema) Encourage oral free water Plan: VTE Prophylaxis -on Coumadin, see above Diet - per prior SLT recommendations, regular moist diet, aspiration precautions Possible d/c to [facility] for rehab tomorrow if remains stable Admission and Anticipated Discharge Date Admission Date: June 24, 2021 Subjective Patient evaluated this morning. Breathing about the same but when asked he notes it's about his usual level of shortness of breath. Cough productive of redman sputum at times. No further n/v or abdominal pain since moving bowels over past couple of days and much softer abd on exam per RN who's had in days past. Discussed changing to oral steroids for today and titrated back to his usual 2.5L --> sats now 94% and would keep lowest possible to maintain sats. Still awaiting placement. He states he has BiPAP at home but does not have tubing and needs new mask -- will reach out to about getting info for [employer] to request new supplies. No fever, chills, chest pain, palpitations, wheezing, dysuria reported. Legs w edema at baseline and keeps them up but unable to put on stockings. Review of Systems Review of Systems: All systems reviewed & are unremarkable except as noted in HPI & below Physical Exam Physical Exam: General: well developed, well nourished, obese male, no acute distress, comfortable Neck: supple, trachea midline, normal thyroid Lungs: clear to auscultation bilaterally, diminished breath sounds, normal respiratory effort, mild accessory muscle use, no distress, on 3L NC with sat 97% Heart: irregular, S1/S2, no murmur, peripheral pulses normal, capillary refill normal, trace b/l edema Abdomen: soft, NT, ND, + BS, no hepatomegaly, normal to percussion Extremities: normal in appearance, no cyanosis, no petechiae, strength is 5/5 bilaterally Neuro: awake, cooperative, moves all extremities, no focal motor deficits, CN II-XII intact, sensation in extremities intact, normal speech Skin: warm, dry, no rash, normal turgor Psych: Awake, alert oriented x 3, euthymic affect Results & Data Results & Data ([facility]) Vital Signs (Past 12 Hours) Vital Signs Temp Pulse Pulse Resp BP BP Pulse Ox 06/26/21 07:00 76 06/26/21 03:00 36.4 C L 64 16 136/59 L 93 06/26/21 02:28 62 16 98 06/25/21 23:48 94 H 06/25/21 23:47 06/25/21 23:00 35.6 C L 90 18 157/89 H 90 06/25/21 22:30 82 18 99 Pulse Ox 06/26/21 07:00 06/26/21 03:00 06/26/21 02:28 06/25/21 23:48 06/25/21 23:47 99 06/25/21 23:00 06/25/21 22:30 Laboratory Results 06/26/21 06/26/21 06/26/21 Range/Units 10:13 07:54 07:54 WBC 9.52 (4.8-10.8) K/uL RBC 4.21 L (4.7-6.1) M/uL Hgb 13.7 L (14.0-18.0) g/dL Hct 44.9 (42-52) % MCV 106.7 H (80-100) fL MCH 32.5 (25-34) pg MCHC 30.5 L (32-36) g/dL RDW Std Deviation 55.4 H (36.4-46.3) fL RDW Coeff of Luciano 14.2 (11.5-14.5) % Plt Count 370 (130-400) K/uL MPV 11.3 H (7.4-10.4) fL PT (9.0-12.0) Seconds INR (0.9-1.1) ABG pH 7.41 (7.35-7.45) ABG pCO2 64 H (35-46) mmHg ABG pO2 72 L (80-95) mmHg ABG HCO3 40 H (19-24) mmol/L ABG O2 Saturation 94.7 (90-95) % ABG Base Excess 12.4 H (-9-1.8) mEq/L Arun Test Pos (Pos) Barometric Pressure 729.6 mm/Hg Oxygen Given 3.5L Sodium 139 (136-145) mmol/L Potassium 4.6 (3.5-5.1) mmol/L Chloride 97 L (98-107) mmol/L Carbon Dioxide 39 H (21-32) mmol/L Anion Gap 3.0 (3-11) BUN 39 H (7-18) mg/dl Creatinine 1.04 (0.6-1.4) mg/dl Est Cr Clr Drug Dosing 69.9 ml/min Est GFR ( Amer) 78.8 ml/min Est GFR (Non-Af Amer) 68.0 ml/min BUN/Creatinine Ratio 37.7 H (10-20) Glucose 125 H (70-99) mg/dl Calcium 8.9 (8.5-10.1) mg/dl 06/26/21 Range/Units 07:54 WBC (4.8-10.8) K/uL RBC (4.7-6.1) M/uL Hgb (14.0-18.0) g/dL Hct (42-52) % MCV (80-100) fL MCH (25-34) pg MCHC (32-36) g/dL RDW Std Deviation (36.4-46.3) fL RDW Coeff of Luciano (11.5-14.5) % Plt Count (130-400) K/uL MPV (7.4-10.4) fL PT 45.0 H (9.0-12.0) Seconds INR 5.0 H (0.9-1.1) ABG pH (7.35-7.45) ABG pCO2 (35-46) mmHg ABG pO2 (80-95) mmHg ABG HCO3 (19-24) mmol/L ABG O2 Saturation (90-95) % ABG Base Excess (-9-1.8) mEq/L Arun Test (Pos) Barometric Pressure mm/Hg Oxygen Given Sodium (136-145) mmol/L Potassium (3.5-5.1) mmol/L Chloride (98-107) mmol/L Carbon Dioxide (21-32) mmol/L Anion Gap (3-11) BUN (7-18) mg/dl Creatinine (0.6-1.4) mg/dl Est Cr Clr Drug Dosing ml/min Est GFR ( Amer) ml/min Est GFR (Non-Af Amer) ml/min BUN/Creatinine Ratio (10-20) Glucose (70-99) mg/dl Calcium (8.5-10.1) mg/dl PG Care Time/CCT Total # of Minutes Spent Total Time Spent with Patient: Total time spent is greater than 50% in coordination of care (as documented) at patient's floor/unit and/or counseling patient: Coding Level of Care Code 88091 Subseq Hosp Care Lvl 3 Diagnoses COPD exacerbation J44.1 Community acquired pneumonia J18.9 Acute on chronic respiratory failure with hypoxia and hypercapnia J96.21; J96.22 Permanent atrial fibrillation I48.21 Sleep apnea G47.30 Supratherapeutic INR R79.1 HTN (hypertension) I10 (HFpEF) heart failure with preserved ejection fraction I50.30 Right shoulder pain M25.511 Hyperkalemia E87.5
[2021-06-26 08:19] LABS: Hematocrit (blood only) 44.9 % (42-52); Hemoglobin 13.7 g/dL (14.0-18.0); Mean Corpuscular Hemoglobin 32.5 pg (25-34); Mean Corpuscular Hgb Conc 30.5 g/dL (32-36); Mean Corpuscular Volume 106.7 fL (80-100); Mean Platelet Volume 11.3 fL (7.4-10.4); Platelet Count 370 K/uL (130-400); RDW Coefficient of Variation 14.2 % (11.5-14.5); RDW Standard Deviation 55.4 fL (36.4-46.3); Red Blood Count 4.21 M/uL (4.7-6.1); White Blood Count 9.52 K/uL (4.8-10.8)
[2021-06-26 08:39] LABS: Potassium 4.6 mmol/L (3.5-5.1)
[2021-06-26 08:40] LABS: BUN Creatinine Ratio 37.7 (10-20); Calcium 8.9 mg/dl (8.5-10.1); Creatinine Clr Calc Pharmacy 69.9 ml/min; Est GFR (African American) 78.8 ml/min
[2021-06-26] MEDS: FLUTICASONE FUROATE 100MCG 14 PUFFS/INHALER INH SCH (08:41)
[2021-06-26] MEDS: NYSTATIN POWDER 15GM BTL EXT SCH ×3 (08:42→21:17)
[2021-06-26] MEDS: UMECLIDINIUM/VILANTEROL 62.5/25MCG 7 PUFFS/INHALER INH SCH (08:42)
[2021-06-26] MEDS: POLYETHYLENE (MIRALAX) 17 GM PACK PO SCH ×2 (08:42→21:17)
[2021-06-26] MEDS: CALCIUM CARBONATE 1250MG TAB PO SCH ×2 (08:43→21:16)
[2021-06-26] MEDS: dilTIAZem HCL 120 MG CAPCR PO SCH (08:43)
[2021-06-26] MEDS: ASPIRIN 81 MG ECTAB PO SCH (08:43)
[2021-06-26] MEDS: METOPROLOL TARTRATE 50 MG TAB PO SCH ×2 (08:43→21:17)
[2021-06-26] MEDS: LIDOCAINE 5% 1 PATCH TD SCH (08:43)
[2021-06-26] MEDS: FUROSEMIDE 80 MG TAB PO SCH (08:43)
[2021-06-26] MEDS: SENNA 8.6 MG TAB PO SCH (08:44)
[2021-06-26] MEDS: predniSONE 20 MG TAB PO SCH (08:44)
[2021-06-26] MEDS: PANTOprazole 40 MG TAB PO SCH ×2 (08:44→21:16)
[2021-06-26] MEDS: TAMSULOSIN HCL 0.4 MG CAP PO SCH (08:44)
[2021-06-26] MEDS: MULTIVITAMIN TAB PO SCH (08:44)
[2021-06-26] MEDS: cefTRIAXone SODIUM 2,000 MG in DEXTROSE 5% 50 ML IV SCH (08:54)
--- NOTE | 2021-06-26 10:20 | XRay Report ---
XR chest 1V portable HISTORY: Shortness of breath. Pneumonia. Follow-up. COMPARISON: Chest 06/21/2021. FINDINGS: There are low lung volumes. Small bilateral pleural effusions and bibasilar densities persi st. Chronic post traumatic changes again noted within the right hemithorax with stable volume loss. T he heart remains borderline enlarged. No pneumothorax. No evidence for pulmonary edema. Slight improv ed aeration within the right lung base. IMPRESSION: 1. Slight improved aeration within the right lung base. 2. Small bilateral pleural effusions persist. No evidence for pulmonary edema. 3. Chronic postoperative changes again noted within the right hemithorax. ACT 112: Negative or not required by law. Electronically signed by: Juno Rivera M.D. 06/26/2021 10:19 AM
[2021-06-26 10:51] LABS: Base Excess ABG 12.4 mEq/L (-9-1.8); HCO3 ABG 40 mmol/L (19-24); Oxygen Saturation ABG 94.7 % (90-95); PCO2 ABG 64 mmHg (35-46); PO2 ABG 72 mmHg (80-95); pH ABG 7.41 (7.35-7.45)
[2021-06-26 10:52] LABS: Allen Test Pos (Pos)
[2021-06-26] MEDS: DIGOXIN 0.125 MG TAB PO SCH (15:59)
[2021-06-26] MEDS: ATORVASTATIN 40 MG TAB PO SCH (21:16)
[2021-06-27 05:59] LABS: Base Excess VBG 16.1 mEq/L; HCO3 VBG 45 mmol/L; PCO2 VBG 78 mmHg (38-50); PO2 VBG 26 mmHg; pH VBG 7.38 (7.36-7.41)
[2021-06-27 06:00] LABS: Hemoglobin 13.1 g/dL (14.0-18.0); Mean Corpuscular Hemoglobin 32.1 pg (25-34); Mean Corpuscular Hgb Conc 30.5 g/dL (32-36); Mean Corpuscular Volume 105.4 fL (80-100); Mean Platelet Volume 11.3 fL (7.4-10.4); Platelet Count 367 K/uL (130-400); RDW Coefficient of Variation 14.1 % (11.5-14.5); RDW Standard Deviation 54.2 fL (36.4-46.3); Red Blood Count 4.08 M/uL (4.7-6.1); White Blood Count 11.13 K/uL (4.8-10.8)
[2021-06-27 06:01] LABS: Oxygen Saturation VBG < 60.0 %
[2021-06-27 06:08] LABS: INR 4.1 (0.9-1.1); Prothrombin Time 37.2 Seconds (9.0-12.0)
[2021-06-27 06:36] LABS: BUN Creatinine Ratio 39.9 (10-20); Creatinine Clr Calc Pharmacy 69.9 ml/min; Est GFR (African American) 78.8 ml/min; Potassium 4.5 mmol/L (3.5-5.1)
--- NOTE | 2021-06-27 08:17 | Hospitalist Progress Note ---
Date of Service June 27, 2021 Assessment & Plan Admission and Anticipated Discharge Date Admission Date: June 24, 2021 Results & Data Results & Data ([facility]) Vital Signs (Past 12 Hours) Vital Signs Temp Pulse Pulse Resp BP BP Pulse Ox 06/27/21 07:58 36.4 C L 84 20 144/83 H 96 06/27/21 07:28 76 06/27/21 03:00 36.4 C L 86 16 140/81 95 06/26/21 23:38 76 06/26/21 23:06 99 06/26/21 23:05 06/26/21 22:14 36.7 C 90 18 145/65 H 94 Pulse Ox 06/27/21 07:58 06/27/21 07:28 06/27/21 03:00 06/26/21 23:38 06/26/21 23:06 06/26/21 23:05 95 06/26/21 22:14 Laboratory Results 06/27/21 06/27/21 06/27/21 Range/Units 05:33 05:33 05:33 WBC (4.8-10.8) K/uL RBC (4.7-6.1) M/uL Hgb (14.0-18.0) g/dL Hct (42-52) % MCV (80-100) fL MCH (25-34) pg MCHC (32-36) g/dL RDW Std Deviation (36.4-46.3) fL RDW Coeff of Luciano (11.5-14.5) % Plt Count (130-400) K/uL MPV (7.4-10.4) fL PT 37.2 H (9.0-12.0) Seconds INR 4.1 H (0.9-1.1) ABG pH (7.35-7.45) ABG pCO2 (35-46) mmHg ABG pO2 (80-95) mmHg ABG HCO3 (19-24) mmol/L ABG O2 Saturation (90-95) % ABG Base Excess (-9-1.8) mEq/L Arun Test (Pos) VBG pH 7.38 (7.36-7.41) VBG pCO2 78 H (38-50) mmHg VBG pO2 26 mmHg VBG HCO3 45 mmol/L VBG O2 Saturation < 60.0 % VBG Base Excess 16.1 mEq/L Barometric Pressure 734.7 mm/Hg Oxygen Given Sodium 139 (136-145) mmol/L Potassium 4.5 (3.5-5.1) mmol/L Chloride 95 L (98-107) mmol/L Carbon Dioxide 40 H (21-32) mmol/L Anion Gap 4.0 (3-11) BUN 42 H (7-18) mg/dl Creatinine 1.04 (0.6-1.4) mg/dl Est Cr Clr Drug Dosing 69.9 ml/min Est GFR ( Amer) 78.8 ml/min Est GFR (Non-Af Amer) 68.0 ml/min BUN/Creatinine Ratio 39.9 H (10-20) Glucose 117 H (70-99) mg/dl Calcium 9.0 (8.5-10.1) mg/dl 06/27/21 06/26/21 06/26/21 Range/Units 05:33 10:13 07:54 WBC 11.13 H (4.8-10.8) K/uL RBC 4.08 L (4.7-6.1) M/uL Hgb 13.1 L (14.0-18.0) g/dL Hct 43.0 (42-52) % MCV 105.4 H (80-100) fL MCH 32.1 (25-34) pg MCHC 30.5 L (32-36) g/dL RDW Std Deviation 54.2 H (36.4-46.3) fL RDW Coeff of Luciano 14.1 (11.5-14.5) % Plt Count 367 (130-400) K/uL MPV 11.3 H (7.4-10.4) fL PT (9.0-12.0) Seconds INR (0.9-1.1) ABG pH 7.41 (7.35-7.45) ABG pCO2 64 H (35-46) mmHg ABG pO2 72 L (80-95) mmHg ABG HCO3 40 H (19-24) mmol/L ABG O2 Saturation 94.7 (90-95) % ABG Base Excess 12.4 H (-9-1.8) mEq/L Arun Test Pos (Pos) VBG pH (7.36-7.41) VBG pCO2 (38-50) mmHg VBG pO2 mmHg VBG HCO3 mmol/L VBG O2 Saturation % VBG Base Excess mEq/L Barometric Pressure 729.6 mm/Hg Oxygen Given 3.5L Sodium 139 (136-145) mmol/L Potassium 4.6 (3.5-5.1) mmol/L Chloride 97 L (98-107) mmol/L Carbon Dioxide 39 H (21-32) mmol/L Anion Gap 3.0 (3-11) BUN 39 H (7-18) mg/dl Creatinine 1.04 (0.6-1.4) mg/dl Est Cr Clr Drug Dosing 69.9 ml/min Est GFR ( Amer) 78.8 ml/min Est GFR (Non-Af Amer) 68.0 ml/min BUN/Creatinine Ratio 37.7 H (10-20) Glucose 125 H (70-99) mg/dl Calcium 8.9 (8.5-10.1) mg/dl 06/26/21 06/26/21 Range/Units 07:54 07:54 WBC 9.52 (4.8-10.8) K/uL RBC 4.21 L (4.7-6.1) M/uL Hgb 13.7 L (14.0-18.0) g/dL Hct 44.9 (42-52) % MCV 106.7 H (80-100) fL MCH 32.5 (25-34) pg MCHC 30.5 L (32-36) g/dL RDW Std Deviation 55.4 H (36.4-46.3) fL RDW Coeff of Luciano 14.2 (11.5-14.5) % Plt Count 370 (130-400) K/uL MPV 11.3 H (7.4-10.4) fL PT 45.0 H (9.0-12.0) Seconds INR 5.0 H (0.9-1.1) ABG pH (7.35-7.45) ABG pCO2 (35-46) mmHg ABG pO2 (80-95) mmHg ABG HCO3 (19-24) mmol/L ABG O2 Saturation (90-95) % ABG Base Excess (-9-1.8) mEq/L Arun Test (Pos) VBG pH (7.36-7.41) VBG pCO2 (38-50) mmHg VBG pO2 mmHg VBG HCO3 mmol/L VBG O2 Saturation % VBG Base Excess mEq/L Barometric Pressure mm/Hg Oxygen Given Sodium (136-145) mmol/L Potassium (3.5-5.1) mmol/L Chloride (98-107) mmol/L Carbon Dioxide (21-32) mmol/L Anion Gap (3-11) BUN (7-18) mg/dl Creatinine (0.6-1.4) mg/dl Est Cr Clr Drug Dosing ml/min Est GFR ( Amer) ml/min Est GFR (Non-Af Amer) ml/min BUN/Creatinine Ratio (10-20) Glucose (70-99) mg/dl Calcium (8.5-10.1) mg/dl PG Care Time/CCT Total # of Minutes Spent Total Time Spent with Patient: Total time spent is greater than 50% in coordination of care (as documented) at patient's floor/unit and/or counseling patient: Coding
[2021-06-27] MEDS: TAMSULOSIN HCL 0.4 MG CAP PO SCH (08:27)
[2021-06-27] MEDS: SENNA 8.6 MG TAB PO SCH (08:27)
[2021-06-27] MEDS: METOPROLOL TARTRATE 50 MG TAB PO SCH (08:27)
[2021-06-27] MEDS: cefTRIAXone SODIUM 2,000 MG in DEXTROSE 5% 50 ML IV SCH (08:27)
[2021-06-27] MEDS: ASPIRIN 81 MG ECTAB PO SCH (08:28)
[2021-06-27] MEDS: FUROSEMIDE 80 MG TAB PO SCH (08:28)
[2021-06-27] MEDS: dilTIAZem HCL 120 MG CAPCR PO SCH (08:28)
[2021-06-27] MEDS: MULTIVITAMIN TAB PO SCH (08:28)
[2021-06-27] MEDS: UMECLIDINIUM/VILANTEROL 62.5/25MCG 7 PUFFS/INHALER INH SCH (08:28)
[2021-06-27] MEDS: CALCIUM CARBONATE 1250MG TAB PO SCH (08:28)
[2021-06-27] MEDS: PANTOprazole 40 MG TAB PO SCH (08:28)
[2021-06-27] MEDS: predniSONE 20 MG TAB PO SCH (08:28)
[2021-06-27] MEDS: NYSTATIN POWDER 15GM BTL EXT SCH (08:29)
[2021-06-27] MEDS: FLUTICASONE FUROATE 100MCG 14 PUFFS/INHALER INH SCH (08:29)
[2021-06-27] MEDS: POLYETHYLENE (MIRALAX) 17 GM PACK PO SCH (08:29)
[2021-06-27] MEDS: LIDOCAINE 5% 1 PATCH TD SCH (08:29)
--- NOTE | 2021-06-27 10:27 | Discharge Summary ---
Date of Service June 27, 2021 Admission HPI Per Admitting Provider Brice Osei is a 80 year old male who presents to the ER via EMS with three days of chest pain and shortness of breath. He reports feeling similar to when he was here last in May with shortness of breath and was diagnosed with bronchitis. He is coughing up redman sputum with left sided chest pain on coughing. He is chronically short of breath with COPD on 2.5 LPM O2. Continues to have right shoulder pain but has not done physical therapy or followed up with orthopedics as recommended previously. On discussion with his over the phone she reports his nebulizer is broken and they are waiting for the equipment company to replace it but it has been weeks. The patient is unable to tolerate the BiPAP due to secretions. They are generally not coping well. Office of aging are involved but it sound like just with finances and the patient has refused to hand over bank statements. She wishes he would go to rehabilitation as he cannot do much around the house and she is unable to take care of him as she has her own problems and falls repeatedly. In the ER he is already feeling improved after nebulizer, IV steroids and BiPAP started. He was referred to medicine for admission and ongoing management of acute respiratory failure and COPD exacerbation. Admission Exam Per Admitting Provider Constitutional: well developed and + acute distress (respiratory); + not well nourished Eyes: + anicteric sclerae; normal pupil size ENMT:L Mouth: oral mucous membranes not dry Neck: trachea midline, no thyromegaly Respiratory: + respiratory distress, + labored breath ing, + retractions, + uses accessory muscles and + prolonged expiratory phase; + not able to speak in complete sentence Auscultation: + diminished lung sounds (throughout); no crackles, no rales, no rhonchi and no wheezes Cardiovascular: Rate/Rhythm: regular rate and + irregularly irregular Heart Sounds: no murmur Vessels: no JVD Extremities: normal capillary refill and + pedal edema (trace ankles); no calf tenderness Gastrointestinal (Abdomen): normal bowel sounds, soft, nontender, no hepatosplenomegaly Musculoskeletal: no cyanosis or clubbing, extremities motor strength 5/5 Skin: no rashes, warm and dry Neurologic: moves all extremities and awake; not confused Psychiatric: A+Ox3, euthymic affect Principal Diagnosis COPD Exacerbation, Acute Respiratory Failure with Hypercapnia Discharge Exam General: well developed, well nourished, obese male, no acute distress, comfortable Neck: supple, trachea midline, normal thyroid Lungs: clear to auscultation bilaterally, diminished breath sounds, normal respiratory effort, mild accessory muscle use, no distress, on 2.5L NC with sat 95% Heart: irregular, S1/S2, no murmur, peripheral pulses normal, capillary refill normal, 1+ b/l edema Abdomen: soft, NT, ND, + BS, no hepatomegaly, normal to percussion Extremities: normal in appearance, no cyanosis, no petechiae, strength is 5/5 bilaterally Neuro: awake, cooperative, moves all extremities, no focal motor deficits, CN II-XII intact, sensation in extremities intact, normal speech Skin: warm, dry, no rash, normal turgor Psych: Awake, alert oriented x 3, euthymic affect Discharge Data Allergies Allergy/AdvReac Type Severity Reaction Status Date / Time acetazolamide Allergy Intermediate swelling Verified 05/27/21 13:09 [From Diam[employer]els] Consultations 06/21/21 11:43 ED Decision to Admit Stat Hospital Course (1) COPD exacerbation: Acute on chronic COPD exacerbation -- on 2.5L chronically at home and has BiPAP at home upon questioning, however he needs a new mask and tubing. CM assisting and having call [employer] for new supplies Improving slightly, about at baseline per patient when asked Got Solumedrol 125mg IV in ER and was to have been converted to PO but this was not done and patient was on methylprednisolone 40mg BID x 8 doses --> Changed to prednisone 40mg daily today (06/26) and taper at d/c to decrease 10mg q2 days Did give extra dose lasix day of d/c as had some increased edema and maybe little congestion. to continually monitor weights/volume status at [facility] and did discuss he may need extra dose during the course of taper if any issues with edema from steroids Ceftriaxone/Azithromycin -- completed 5 doses of Azitho/Rocephin for possible pneumonia on imaging however procal negative, cough without change in sputum/color/quanitity from baseline Continued fluticasone, umeclidinium/vilanterol while inpatient as home non-formulary--> resume home meds at d/c Remained stable on usual 2.5L NC. To continue BiPAP HS and with napping during the day -- he has been compliant with such Patient send with tubing and mask from inpatient stay in the meantime. Of note, CO2 elevated on AM labs however patient incorrectly ordered 2step overnight as thought needed set up for BiPAP and actually already had one just wasn't using because he needed new supplies and to get new mask and tubing from [employer]. PT/OT with recs for rehab--> [facility] arranged (2) Community acquired pneumonia: Patient with some improvement on COPD treatment as above, however CXR with possible RLL pneumonia on imaging however does have effusions and could have been from some compressive atelectasis/scarring as well Cough without change in sputum color/quantity. Procalcitonin negative Regardless, in pt with COPD, covered with Rocephin/Azithro x 5 days CXR with improvement aeration within R lung base, small b/l effusion without evidence for pulm edema. chronic post-op changed within R hemithorax Back on baseline O2 requirement x 2 days (3) Acute on chronic respiratory failure with hypoxia and hypercapnia: as above Procalcitonin negative, no leukocytosis BMP shows HCO3 up at 43 --> improved to 39. ABG with CO2 64 (was 69 on VBG on admit) Prednisone -- as above and taper at d/c (had been on IV for several days without decrease initially) BiPAP HS and when napping. Continued on usual 2.5L NC when up and awake to get new mask and tubing as above as patient high risk for re-admit if not compliant with such at home F/u outpatient with pulm (4) Permanent atrial fibrillation: Continue diltiazem 120 mg p.o. every morning Continue metoprolol tartrate 150 mg p.o. twice daily Digoxin level 2.2, slightly supratherapeutic. --> Dose changed to digoxin 0.125 mg 6 times weekly, single dose held --> to continue 6x/wk at d/c INR elevated to 10 earlier in stay requiring Vit K, repeat still supratherapeutic and reduction in coumadin to 5/7.5 and continued monitoring at [facility] for further adjustments if decreases too far now that abx therapy completed INR 5--> 4.1 prior to d/c and continue reduced dose (5) Sleep apnea: Tolerating BiPAP overnight in hospital Patient reports he is noncompliant with CPAP/BiPAP at home, but this is because his mask is not working properly Continue NIV qHS/when napping (6) Supratherapeutic INR: Patient previously stable on Coumadin 7.5 mg 5 times per week, 10 mg twice per week On admission patient with elevated INR greater than 10, given 5 mg of vitamin K IV, repeat INR following morning 1.2 ? Whether first measurement was an error given rapid decrease over a large absolute value Discussed with pharmacy, warfarin resumed, 12.5 mg dose given 06/23 06/25: INR up to 4.4 resume at 5mg daily on 06/27 (from prior ), hold dose for 06/26 INR decreased to 4.1, suspect further decreased tomorrow given dose held on 06/26. Continued monitoring/adjustments at rehab (7) HTN (hypertension): Continue diltiazem Continue metoprolol BP stable (8) (HFpEF) heart failure with preserved ejection fraction: No acute exacerbation suspected Continue furosemide (extra dose x 1 on 06/27 from edema from steroids) CXR: Cardiomegaly without evidence of congestive failure, chronic lung volume loss, small right pleural effusion with right greater than left bibasilar consolidation which could represent scarring/atelectasis versus pneumonia/pn eumonitis aspiration. (9) Right shoulder pain: Suspected rotator cuff injury Not surgical candidate Again recommended PT with rehab and orthopedic follow up outpatient Discharged to [facility] for rehab Total Time Total Time Spent Total Time Spent (In Minutes): 45 Discharge Plan Discharge Items Patient Disposition: Transfer [facility] Reason For Visit: COPD EXACERBATION Discharge Diagnosis: COPD Exacerbation Goals: You have been hospitalized for an acute medical problem. During your stay at [facility], we have made an effort to correct the problem that brought you to the hospital while keeping you as comfortable as possible. Medications were used to bring your condition under control and your discharge instructions will include directions for any medications you should take after leaving the hospital. Please make sure you see your Primary Care Provider as part of your follow up plan. Activity: As commented below Activity Comment: advance as tolerated with therapy at rehab Non-emergency contact: Primary Care Provider Call non-emergency contact if: you have any medication questions and your symptoms worsen Follow-up/Referrals: Andie Peace CRNP [Primary Care Provider] - Diet: Heart Healthy and Other - See Diet Comment Diet Comment: minced and moist Addtl Attending Provider Instructions: You have been hospitalized for shortness of breath. You were treated with steroids and antibiotics and completed 5 days of antibiotics while in the hospital. You will be sent with a prednisone taper at discharge: decrease to 30mg for the next two days, then decrease by 10mg every 2 days to complete taper. You haven't had signs of volume overload presently much above baseline swelling, however you may need an extra dose of lasix over the next couple of days if you have increased leg swelling. You were given an extra dose of lasix on day of discharge from multiple days of IV steroids which can cause swelling. You have been sent with the tubing and mask for BiPAP from the hospital and number has been provided with to contact your company for more supplies as this is VERY IMPORTANT to continue use with all sleeping as well as daytime napping to prevent elevations in your carbon dioxide level. Your INR was elevated from your coumadin, and likely from antibiotics which can cause elevations. Your coumadin dosing has been decreased to combat this and you should continue 5mg on tuesdays/ and continue 7.5mg on all other days. You should have daily monitoring of your INR/adjustment of coumadin if starts to decrease now that antibiotics have been completed. You digoxin level was elevated and your digoxin was decreased to 6 times weekly and you should follow up with PCP/cardiology in future for continued monitoring. Your afib remained rate controlled on monitor during hospital stay. Therapy has evaluated you and arrangements have been made for rehab at discharge to [facility]. Please follow up with your primary care provider in the next 1-2 weeks to monitor your progress. Please return to the emergency department with any fever, chest pain, increased shortness of breath, or for any other symptoms that are concerning for you. Pending Studies at Discharge: No Stand-Alone Forms: My [facility] Skilled Items Patient informed of condition?: Yes DNR: No Discharge Level of Care: Acute rehab Communicable Disease: No Discharge Prognosis: Stable Lines: None Urinary Catheter: No Medications and DC Order Prescriptions: New warfarin 5 mg Tablet 5 mg PO TuTh@1600 Qty: 20 RF: 0 warfarin [Jantoven] 7.5 mg Tablet 7.5 mg PO SuMoWeFrSa@1600 Qty: 20 RF: 0 digoxin [Digitek] 125 mcg (0.125 mg) Tablet 125 mcg PO SuMoTuWeThSa@1600 Qty: 24 RF: 0 prednisone 20 mg Tablet See Rx Instructions .ROUTE .COMPLEX Qty: 8 RF: 0 lidocaine 5 % Adhesive Patch,Medicated 1 patch transdermal QAM Qty: 1 RF: 0 (DME) BiPap Machine Misc See Rx Instructions .ROUTE Qty: 1 RF: 0 Continued aspirin [Ecotrin Low Strength] 81 mg tablet,delayed release (DR/EC) 81 mg PO QAM Qty: 30 RF: 0 furosemide [Lasix] 80 mg tablet 80 mg PO QAM Qty: 30 RF: 3 potassium chloride [Klor-Con M20] 20 mEq tablet,ER particles/crystals 20 meq PO BID Qty: 60 RF: 1 atorvastatin 40 mg tablet 40 mg PO HS Qty: 30 RF: 5 diltiazem HCl 120 mg capsule,extended release 24hr 120 mg PO QAM Qty: 30 RF: 5 tamsulosin [Flomax] 0.4 mg capsule 0.4 mg PO DAILY Qty: 30 RF: 2 multivitamin [Daily Multi-Vitamin] tablet 1 tab PO QAM RF: 0 calcium carbonate-vitamin D3 [Calcium 500 + D] 500 mg(1,250mg) -400 unit tablet 500 tab PO BID RF: 0 acetaminophen 325 mg Tablet 650 mg PO Q4H PRN (Reason: pain) Qty: 30 RF: 0 pantoprazole 40 mg Tablet,Delayed Release (Dr/Ec) 40 mg PO BID Qty: 60 RF: 2 sennosides [Senokot] 8.6 mg Tablet 17.2 mg PO QAM Qty: 60 RF: 0 nystatin [Nystop] 100,000 unit/gram Powder 1 applic EXT TID Qty: 30 RF: 1 metoprolol tartrate [Lopressor] 50 mg tablet 150 mg PO BID Qty: 0 RF: 0 ZTlido 1.8 % adhesive patch,medicated 1 patch topical DAILY Qty: 30 RF: 0 Trelegy Ellipta 100-62.5-25 mcg blister with device 1 inh inhalation DAILY Qty: 60 RF: 0 Discontinued digoxin [Digitek] 125 mcg (0.125 mg) tablet 125 mcg PO DAILY@1600 Qty: 30 RF: 5 warfarin 10 mg tablet 7.5 - 10 mg PO UD RF: 0 Discharge Orders: Discharge Order (Routine); Ordered 06/27/21 Ordered By: Roopa Dobbins Admission Data Admit Date/Time: 06/24/21 13:38 Attending Provider: Parag Hayes Admit Provider: Nick Cline Primary Care Provider: Andie Peace Other Providers: Nick Cline ; [facility] Other Interventions: Discharge Summary Assessment (RN) Last Done: 06/27/21 10:47 Supervising Physician Co-Signing Physician Notes During face to face encounter, had a brief discussion about hospital course and complted physical exam. Answered all of the patient's questions. Reviewed above note and agree with it. Discussed discharge plan with patient and BRET Dobbins. Patient will be discharged withdx of COPD exacerbation on steroids. Discharge meds below. Coding Level of Care Code D/C DAY MANAGEMENT >30 MINS Diagnoses COPD exacerbation J44.1 Community acquired pneumonia J18.9 Acute on chronic respiratory failure with hypoxia and hypercapnia J96.21; J 96.22 Permanent atrial fibrillation I48.21 Sleep apnea G47.30 Supratherapeutic INR R79.1 HTN (hypertension) I10 (HFpEF) heart failure with preserved ejection fraction I50.30 Right shoulder pain M25.511
[2021-06-27] MEDS ORDERED: FUROSEMIDE INJ 20 MG/2 ML VIAL IV ONE (10:30)
[2021-06-27] MEDS ORDERED: FUROSEMIDE 40 MG/4 ML VIAL IV ONE (10:31)
[2021-06-27] MEDS ORDERED: WARFARIN SOD 5 MG TAB PO SCH (16:00)
[2021-06-27] MEDS ORDERED: WARFARIN SOD 10 MG TAB PO SCH (16:00)
== END 2021-06-27 15:01 | DRG 193 ==
LOC: 2N 09:27 → ED 09:27 → SUATTDRO 12:18 → 2N 13:59 → SUATTDRO 06-24 13:38

== ENCOUNTER 2021-07-14 12:03 | Inpatient (IN) ==
[2021-07-14] MEDS ORDERED: STAT IV Infusion **Titration per Protocol STA (12:14)
[2021-07-14] MEDS ORDERED: dilTIAZem HCl 5 MG/ML 5 ML VIAL IV STA (12:14)
[2021-07-14 12:39] LABS: Hematocrit (blood only) 40.8 % (42-52); Hemoglobin 13.1 g/dL (14.0-18.0); Immature Granulocytes # (auto) 0.01 K/uL (0.00-0.02); Immature Granulocytes % (auto) 0.1 %; Lymphocytes # (auto) 0.79 K/uL (1.2-3.4); Lymphocytes % (auto) 10.8 %; Mean Corpuscular Hemoglobin 32.3 pg (25-34); Mean Corpuscular Hgb Conc 32.1 g/dL (32-36); Mean Corpuscular Volume 100.7 fL (80-100); Mean Platelet Volume 10.8 fL (7.4-10.4); Monocytes # (auto) 0.28 K/uL (0.11-0.59); Monocytes % (auto) 3.8 %; Neutrophils # (auto) 6.24 K/uL (1.4-6.5); Neutrophils % (auto) 85.3 %; Platelet Count 219 K/uL (130-400); RDW Coefficient of Variation 14.7 % (11.5-14.5); RDW Standard Deviation 54.5 fL (36.4-46.3); Red Blood Count 4.05 M/uL (4.7-6.1); White Blood Count 7.32 K/uL (4.8-10.8)
[2021-07-14] MEDS ORDERED: ACETAMINOPHEN 1000 MG/100 ML IV IV ONE (12:50)
--- NOTE | 2021-07-14 12:52 | Emergency Department Note ---
Impression & Plan Rapid atrial fibrillation, Hypervolemia, Respiratory failure, 2019 novel coronavirus-infected pneumonia (NCIP), Elevated INR (international normalized ratio) ED Provider Note Provider: Lopez Rios MD DATE OF SERVICE: 07/14/2021 CHIEF COMPLAINT: Shortness of breath, generalized pain HISTORY OF PRESENT ILLNESS: Patient is a 80-year-old gentleman history of end- stage COPD, CAD, diastolic heart failure, atrial fibrillation on Coumadin, and recent admission here for COPD exacerbation and pneumonia presenting from home today with worsening shortness of breath and some generalized pain. Patient evidently was home on hospice after being discharged from [facility]. Patient with a temperature upon arrival and tachypneic and rapid A. fib. Alerted by EMS prior to arrival and he did receive a gram of magnesium sulfate as well as 15 mg of diltiazem with minimal improvement. Patient evidently was on hospice but wish to revoke that and affirms that to me here that he did want everything done. Patient on a nonrebreather with sats in the low 90s. Patient denies significant focal chest pain or abdominal pain but states he is more swollen and feels generally weak and with some mild diffuse myalgias. He seems slightly drowsy but answers questions and is alert to verbal questioning easily. REVIEW OF SYSTEMS: A total of 10 review of systems was obtained and negative ex cept as stated above in the HPI. PAST MEDICAL HISTORY: As noted above MEDICATIONS: Reviewed home medication list although the patient is unable to clearly tell me what things he is currently still taking. SOCIAL HISTORY: , lives at home PHYSICAL EXAM: GENERAL: alert and oriented in no acute distress on stretcher but fatigued in appearance with nonrebreather in place Head: normocephalic and atraumatic EYES: No injection, discharge or icterus. NECK: Trachea midline. Supple. ENT: Mucous membranes pink and moist. Pharynx without erythema or exudate. LUNGS: Airway patent. No retractions but some tachypnea. Crackles in the bases HEART: Irregularly irregular rate and rhythm. No chest wall tenderness ABDOMEN: Soft and non-tender, without guarding or rebound. SKIN: Acyanotic, warm, dry, without rashes EXTREMITIES: Patient with 2+ lower extremity swelling without significant abdelrahman thema NEUROLOGICAL: No focal deficits. No aphasia. No facial droop or slurred speech. EK bpm atrial fibrillation with rapid ventricular response. Lateral and inferior diffuse ST depressions noted without clear ST segment elevation. QTc 414. CONTINUOUS CARDIAC MONITORING: was ordered and showed a heart rate of 100s-170s bpm in rapid atrial fibrillation Patient's laboratory studies and imaging reviewed. Differential includes Infection, dehydration, metabolic abnormality, hypo/hyperglycemia, electrolyte disturbance, anemia, hypoxia, cardiac sources, intracerebral event, toxicologic, neurologic, as well as other pathologies. IMPRESSION/MEDICAL DECISION MAKING: Patient received magnesium and diltiazem prior to arrival. By records he has been on digoxin and diltiazem as well as warfarin. Patient's unable to clearly, what is been on as he has been on "hospice" but wishes to revoke this status today. Given his rapid A. fib given more diltiazem here and transition to BiPAP to help with his respiratory status. Diltiazem drip ordered. Appears grossly fluid overloaded on clinical exam and his history of some diastolic heart failure. Reviewed recent hospitalization. Patient not severely anemic and without significant leukocytosis but has a low-grade temperature upon arrival. Given some IV Tylenol. Cultures and lactate obtained. Some Lasix ordered with evidence of fluid overload on chest x-ray per radiology with some pleural effusions. Renal function at baseline and anticipate giving some Lasix but blood pressure has become somewhat tenuous and will defer Lasix administration. Some hypercarbia and hypercapnia noted the patient again has been transmitted to BiPAP. proBNP somewhat elevated but less so than previous. Troponin detectable but not severely normal similar to previous values. Digoxin level therapeutic. Mild hyponatremia. Hemolyzed labs and INR redrawn. Covered empirically with cefepime given recent hospitalization for any bacterial pneumonia component. Covid test is newly positive. Question exposure to which was reportedly recently ill with this. Patient was given some dexamethasone given his hypoxia here. Patient did have [employer] Covid vaccine in January. Hospitalist will be contacted for further care. INR is elevated and noted. Symptoms began approximately 2 days ago with elevated heart rate and feeling unwell according to sister when she received a call from hospice nursing. Unsure of additional earlier onset of symptoms. DIAGNOSIS: A. fib RVR, hypoxic hypercapnic respiratory failure, fluid overload, COVID-19 pneumonia DISPOSITION: Hospitalist will evaluate Patient was agreeable with this plan. He consented me to update his Sister Geneva via phone who was contacted and updated. Critical Care I have personally spent 48 minutes of critical care time in the direct management of this patient. This includes bedside care, interpretation of diagnostic studies, and testing, discussion with consultants, patient, and family members, and other required patient management activities. These 48 m inutes is in excess of all separately billable procedures. Past Med/Surg History Medical History (Updated 07/14/21 @ 15:33 by Lopez Rios M.D.) (HFpEF) heart failure with preserved ejection fraction Aortic stenosis, mild CAD (coronary artery disease) Cancer of prostate Chronic hypoxemic respiratory failure COPD (chronic obstructive pulmonary disease) Depression DVT (deep venous thrombosis) Dyslipidemia Heart disease HTN (hypertension) Myocardial infarct Sleep apnea TIA (transient ischemic attack) Surgical History History of appendectomy Hx of tonsillectomy Hx of vasectomy Family History Family/Other Prostate cancer Myocardial infarction Denies family history of Ovarian cancer Breast cancer Colorectal cancer Social History Smoking Status: Unknown if ever smoked Tobacco Type: Cigarettes Second Hand Exposure: No; Hx Alcohol Use: Yes Alcohol type: beer Alcohol Intake Frequency: 2-4 x/Month Hx Substance Use: No Preferred Language: Armenian Communication Ability: Effective 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 Beliefs That Will Affect Care: None marital status: Current Living Situation: Spouse current occupational status: retired Feels Safe at Home: Yes caffeine: Yes Dental Care, Regularly: No Physical Activity Frequency: Does not Exercise Seatbelt Use: always Sunscreen Use: No Assistive Devices: Walker Allergies Allergies Allergy/AdvReac Type Severity Reaction Status Date / Time acetazolamide Allergy Intermediate swelling Verified 05/27/21 13:09 [From Diamox Sequels] Home Meds Home Medications Medication Instructions Recorded Confirmed multivitamin (Daily Multi-Vitamin) 1 tab PO QAM 04/11/21 06/21/21 warfarin 5 mg tablet 6 mg PO DAILY 07/14/21 07/14/21 Previous Rx's Medication Instructions Recorded metoprolol tartrate 50 mg tablet 150 mg PO BID #0 tab 04/22/21 (Lopressor) nystatin 100,000 unit/gram topical 1 applic EXT TID #30 g 04/22/21 powder (Nystop) pantoprazole 40 mg tablet,delayed 40 mg PO BID #60 tab 04/22/21 release furosemide 80 mg tablet (Lasix) 80 mg PO QAM #30 tab 05/10/21 potassium chloride 20 mEq 20 meq PO BID #60 tab 05/10/21 tablet,extended release(part/cryst) (Klor-Con M) lidocaine 1.8 % topical patch 1 patch TOPICAL DAILY #30 ea 05/25/21 (ZTlido) atorvastatin 40 mg tablet 40 mg PO HS #30 tab 06/05/21 diltiazem HCl 120 mg 120 mg PO QAM #30 cap 06/05/21 capsule,extended release 24 hr tamsulosin 0.4 mg capsule (Flomax) 0.4 mg PO DAILY #30 cap 06/05/21 BiPap Machine #1 ea 06/27/21 digoxin 125 mcg (0.125 mg) tablet 125 mcg PO SuMoTuWeThSa@1600 #24 06/27/21 (Digitek) tab warfarin 7.5 mg tablet (Jantoven) 7.5 mg PO SuMoWeFrSa@1600 #20 tab 06/27/21 Results & Data (ED) Vital Signs Vital Signs - 24 hr 07/14/21 12:15 07/14/21 12:16 07/14/21 12:17 Temperature 38.1 C H Temperature Source Oral Pulse Rate 143 H 164 H 164 H Pulse Rate from SpO2 Sensor 176 H Pulse Rhythm Irregular Irregular Pulse Strength Normal Respiratory Rate 30 H 36 H 30 H Respiratory Effort / Characteristics Spontaneous Accessory Muscle Use Respiratory Depth Respiratory Pattern Tachypnea Blood Pressure 154/84 H Blood Pressure Mean 107 Blood Pressure Position Lying Pulse Oximetry 94 95 94 Oxygen Delivery Method Non-rebreather Non-rebreather Oxygen Flow Rate 15 Fraction of Inspired Oxygen Sepsis Recent Fever Within 48 Hours Yes Sepsis New/Unexplained Change in Mental Status N/A Sepsis Action Taken by Nursing Previously Notified 07/14/21 12:20 07/14/21 12:30 07/14/21 12:32 Temperature Temperature Source Pulse Rate 159 H 162 H 178 H Pulse Rate from SpO2 Sensor 176 H 187 H Pulse Rhythm Pulse Strength Respiratory Rate 31 H 29 H 30 H Respiratory Effort / Characteristics Non-Labored Spontaneous Respiratory Depth Normal Respiratory Pattern Tachypnea Blood Pressure Blood Pressure Mean Blood Pressure Position Pulse Oximetry 95 95 94 Oxygen Delivery Method Oxygen Flow Rate Fraction of Inspired Oxygen 100 Sepsis Recent Fever Within 48 Hours Sepsis New/Unexplained Change in Mental Status Sepsis Action Taken by Nursing 07/14/21 12:40 07/14/21 12:50 07/14/21 13:00 Temperature Temperature Source Pulse Rate 157 H 130 H 149 H Pulse Rate from SpO2 Sensor 105 H 157 H 183 H Pulse Rhythm Pulse Strength Respiratory Rate 24 25 H 19 Respiratory Effort / Characteristics Respiratory Depth Respiratory Pattern Blood Pressure 121/58 L Blood Pressure Mean 79 Blood Pressure Position Pulse Oximetry 90 97 89 L Oxygen Delivery Method Oxygen Flow Rate Fraction of Inspired Oxygen Sepsis Recent Fever Within 48 Hours Sepsis New/Unexplained Change in Mental Status Sepsis Action Taken by Nursing 07/14/21 13:10 07/14/21 13:20 07/14/21 13:30 Temperature Temperature Source Pulse Rate 145 H 159 H 132 H Pulse Rate from SpO2 Sensor 135 H 142 H 89 Pulse Rhythm Pulse Strength Respiratory Rate 24 18 18 Respiratory Effort / Characteristics Respiratory Depth Respiratory Pattern Blood Pressure Blood Pressure Mean Blood Pressure Position Pulse Oximetry 98 97 96 Oxygen Delivery Method Oxygen Flow Rate Fraction of Inspired Oxygen Sepsis Recent Fever Within 48 Hours Sepsis New/Unexplained Change in Mental Status Sepsis Action Taken by Nursing 07/14/21 13:40 07/14/21 13:50 07/14/21 14:00 Temperature Temperature Source Pulse Rate 112 H 109 H 131 H Pulse Rate from SpO2 Sensor 95 H 78 116 H Pulse Rhythm Pulse Strength Respiratory Rate 21 19 23 Respiratory Effort / Characteristics Respiratory Depth Respiratory Pattern Blood Pressure Blood Pressure Mean Blood Pressure Position Pulse Oximetry 95 95 96 Oxygen Delivery Method Oxygen Flow Rate Fraction of Inspired Oxygen Sepsis Recent Fever Within 48 Hours Sepsis New/Unexplained Change in Mental Status Sepsis Action Taken by Nursing 07/14/21 14:10 07/14/21 14:14 07/14/21 14:20 Temperature Temperature Source Pulse Rate 128 H 134 H Pulse Rate from SpO2 Sensor 98 H 100 H Pulse Rhythm Pulse Strength Respiratory Rate 18 20 Respiratory Effort / Characteristics Spontaneous Accessory Muscle Use Respiratory Depth Shallow Respiratory Pattern Tachypnea Blood Pressure Blood Pressure Mean Blood Pressure Position Pulse Oximetry 96 97 Oxygen Delivery Method CPAP Oxygen Flow Rate Fraction of Inspired Oxygen Sepsis Recent Fever Within 48 Hours Sepsis New/Unexplained Change in Mental Status Sepsis Action Taken by Nursing 07/14/21 14:30 07/14/21 14:40 07/14/21 14:50 Temperature Temperature Source Pulse Rate 114 H 144 H 120 H Pulse Rate from SpO2 Sensor 95 H 104 H 86 Pulse Rhythm Pulse Strength Respiratory Rate 18 24 23 Respiratory Effort / Characteristics Respiratory Depth Respiratory Pattern Blood Pressure 106/55 L Blood Pressure Mean 72 Blood Pressure Position Pulse Oximetry 97 95 97 Oxygen Delivery Method Oxygen Flow Rate Fraction of Inspired Oxygen Sepsis Recent Fever Within 48 Hours Sepsis New/Unexplained Change in Mental Status Sepsis Action Taken by Nursing 07/14/21 15:00 07/14/21 15:10 Temperature Temperature Source Pulse Rate 116 H 111 H Pulse Rate from SpO2 Sensor 70 84 Pulse Rhythm Pulse Strength Respiratory Rate 19 17 Respiratory Effort / Characteristics Respiratory Depth Respiratory Pattern Blood Pressure 103/73 Blood Pressure Mean 83 Blood Pressure Position Pulse Oximetry 97 98 Oxygen Delivery Method Oxygen Flow Rate Fraction of Inspired Oxygen Sepsis Recent Fever Within 48 Hours Sepsis New/Unexplained Change in Mental Status Sepsis Action Taken by Nursing Laboratory Data Result diagrams: 07/14/21 12:22 07/14/21 13:56 Lab Results 07/14/21 07/14/21 07/14/21 Range/Units 12:22 12:23 12:23 WBC 7.32 (4.8-10.8) K/uL RBC 4.05 L (4.7-6.1) M/uL Hgb 13.1 L (14.0-18.0) g/dL Hct 40.8 L (42-52) % MCV 100.7 H (80-100) fL MCH 32.3 (25-34) pg MCHC 32.1 (32-36) g/dL RDW Std Deviation 54.5 H (36.4-46.3) fL RDW Coeff of Luciano 14.7 H (11.5-14.5) % Plt Count 219 (130-400) K/uL MPV 10.8 H (7.4-10.4) fL Immature Gran % (Auto) 0.1 % Neut % (Auto) 85.3 % Lymph % (Auto) 10.8 % [place] % (Auto) 3.8 % Eos % (Auto) 0.0 % Baso % (Auto) 0.0 % Neut # (Auto) 6.24 (1.4-6.5) K/uL Lymph # (Auto) 0.79 L (1.2-3.4) K/uL [place] # (Auto) 0.28 (0.11-0.59) K/uL Eos # (Auto) 0.00 (0-0.5) K/uL Baso # (Auto) 0.00 (0-0.2) K/uL Immature Gran # (Auto) 0.01 (0.00-0.02) K/uL PT Cancelled INR Cancelled APTT Cancelled PTT Ratio Cancelled VBG pH (7.36-7.41) VBG pCO2 (38-50) mmHg VBG pO2 mmHg VBG HCO3 mmol/L VBG O2 Saturation % VBG Base Excess mEq/L Barometric Pressure mm/Hg Sodium 134 L (136-145) mmol/L Potassium (3.5-5.1) mmol/L Chloride 97 L (98-107) mmol/L Carbon Dioxide 28 (21-32) mmol/L Anion Gap 9.0 (3-11) BUN 27 H (7-18) mg/dl Creatinine 1.05 (0.6-1.4) mg/dl Est Cr Clr Drug Dosing 68.2 ml/min Est GFR ( Amer) 77.9 ml/min Est GFR (Non-Af Amer) 67.2 ml/min BUN/Creatinine Ratio 25.5 H (10-20) Glucose 129 H (70-99) mg/dl Lactate (0.4-2.0) mmol/L Calcium 9.1 (8.5-10.1) mg/dl Magnesium (1.8-2.4) mg/dl Total Bilirubin 0.6 (0.2-1) mg/dl AST TNP ALT 26 (12-78) U/L Alkaline Phosphatase 86 (45-117) U/L Troponin I 0.041 (0-0.045) ng/ml C-Reactive Protein (0-0.29) mg/dl NT-Pro-B Natriuret Pep 5028 H (0-1800) pg/ml Total Protein 6.8 (6.4-8.2) gm/dl Albumin 2.3 L (3.4-5.0) gm/dl Globulin 4.5 H (2.5-4.0) gm/dl Albumin/Globulin Ratio 0.5 L (0.9-2) Procalcitonin (0-0.5) ng/ml Nasal Screen MRSA (PCR) (Negative) Digoxin (0.8-2.0) ng/ml SARS-CoV-2 (PCR) (Negative) Influenza Type A (PCR) (Neg) Influenza Type B (PCR) (Neg) RSV (RT-PCR) (Neg) 07/14/21 07/14/21 07/14/21 Range/Units 12:23 12:23 12:38 WBC (4.8-10.8) K/uL RBC (4.7-6.1) M/uL Hgb (14.0-18.0) g/dL Hct (42-52) % MCV (80-100) fL MCH (25-34) pg MCHC (32-36) g/dL RDW Std Deviation (36.4-46.3) fL RDW Coeff of Luciano (11.5-14.5) % Plt Count (130-400) K/uL MPV (7.4-10.4) fL Immature Gran % (Auto) % Neut % (Auto) % Lymph % (Auto) % [place] % (Auto) % Eos % (Auto) % Baso % (Auto) % Neut # (Auto) (1.4-6.5) K/uL Lymph # (Auto) (1.2-3.4) K/uL [place] # (Auto) (0.11-0.59) K/uL Eos # (Auto) (0-0.5) K/uL Baso # (Auto) (0-0.2) K/uL Immature Gran # (Auto) (0.00-0.02) K/uL PT INR APTT PTT Ratio VBG pH (7.36-7.41) VBG pCO2 (38-50) mmHg VBG pO2 mmHg VBG HCO3 mmol/L VBG O2 Saturation % VBG Base Excess mEq/L Barometric Pressure mm/Hg Sodium (136-145) mmol/L Potassium (3.5-5.1) mmol/L Chloride (98-107) mmol/L Carbon Dioxide (21-32) mmol/L Anion Gap (3-11) BUN (7-18) mg/dl Creatinine (0.6-1.4) mg/dl Est Cr Clr Drug Dosing ml/min Est GFR ( Amer) ml/min Est GFR (Non-Af Amer) ml/min BUN/Creatinine Ratio (10-20) Glucose (70-99) mg/dl Lactate (0.4-2.0) mmol/L Calcium (8.5-10.1) mg/dl Magnesium (1.8-2.4) mg/dl Total Bilirubin (0.2-1) mg/dl AST ALT (12-78) U/L Alkaline Phosphatase (45-117) U/L Troponin I (0-0.045) ng/ml C-Reactive Protein (0-0.29) mg/dl NT-Pro-B Natriuret Pep (0-1800) pg/ml Total Protein (6.4-8.2) gm/dl Albumin (3.4-5.0) gm/dl Globulin (2.5-4.0) gm/dl Albumin/Globulin Ratio (0.9-2) Procalcitonin (0-0.5) ng/ml Nasal Screen MRSA (PCR) (Negative) Digoxin 1.6 (0.8-2.0) ng/ml SARS-CoV-2 (PCR) (Negative) Influenza Type A (PCR) (Neg) Influenza Type B (PCR) (Neg) RSV (RT-PCR) (Neg) 07/14/21 07/14/21 07/14/21 Range/Units 12:47 12:47 13:34 WBC (4.8-10.8) K/uL RBC (4.7-6.1) M/uL Hgb (14.0-18.0) g/dL Hct (42-52) % MCV (80-100) fL MCH (25-34) pg MCHC (32-36) g/dL RDW Std Deviation (36.4-46.3) fL RDW Coeff of Luciano (11.5-14.5) % Plt Count (130-400) K/uL MPV (7.4-10.4) fL Immature Gran % (Auto) % Neut % (Auto) % Lymph % (Auto) % [place] % (Auto) % Eos % (Auto) % Baso % (Auto) % Neut # (Auto) (1.4-6.5) K/uL Lymph # (Auto) (1.2-3.4) K/uL [place] # (Auto) (0.11-0.59) K/uL Eos # (Auto) (0-0.5) K/uL Baso # (Auto) (0-0.2) K/uL Immature Gran # (Auto) (0.00-0.02) K/uL PT INR APTT PTT Ratio VBG pH 7.28 L (7.36-7.41) VBG pCO2 73 H (38-50) mmHg VBG pO2 35 mmHg VBG HCO3 33 mmol/L VBG O2 Saturation < 60.0 % VBG Base Excess 4.2 mEq/L Barometric Pressure 732.2 mm/Hg Sodium (136-145) mmol/L Potassium (3.5-5.1) mmol/L Chloride (98-107) mmol/L Carbon Dioxide (21-32) mmol/L Anion Gap (3-11) BUN (7-18) mg/dl Creatinine (0.6-1.4) mg/dl Est Cr Clr Drug Dosing ml/min Est GFR ( Amer) ml/min Est GFR (Non-Af Amer) ml/min BUN/Creatinine Ratio (10-20) Glucose (70-99) mg/dl Lactate (0.4-2.0) mmol/L Calcium (8.5-10.1) mg/dl Magnesium (1.8-2.4) mg/dl Total Bilirubin (0.2-1) mg/dl AST ALT (12-78) U/L Alkaline Phosphatase (45-117) U/L Troponin I (0-0.045) ng/ml C-Reactive Protein (0-0.29) mg/dl NT-Pro-B Natriuret Pep (0-1800) pg/ml Total Protein (6.4-8.2) gm/dl Albumin (3.4-5.0) gm/dl Globulin (2.5-4.0) gm/dl Albumin/Globulin Ratio (0.9-2) Procalcitonin (0-0.5) ng/ml Nasal Screen MRSA (PCR) Negative (Negative) Digoxin (0.8-2.0) ng/ml SARS-CoV-2 (PCR) POSITIVE A* (Negative) Influenza Type A (PCR) Negative (Neg) Influenza Type B (PCR) Negative (Neg) RSV (RT-PCR) Negative (Neg) 07/14/21 07/14/21 07/14/21 Range/Units 13:56 13:56 13:56 WBC (4.8-10.8) K/uL RBC (4.7-6.1) M/uL Hgb (14.0-18.0) g/dL Hct (42-52) % MCV (80-100) fL MCH (25-34) pg MCHC (32-36) g/dL RDW Std Deviation (36.4-46.3) fL RDW Coeff of Luciano (11.5-14.5) % Plt Count (130-400) K/uL MPV (7.4-10.4) fL Immature Gran % (Auto) % Neut % (Auto) % Lymph % (Auto) % [place] % (Auto) % Eos % (Auto) % Baso % (Auto) % Neut # (Auto) (1.4-6.5) K/uL Lymph # (Auto) (1.2-3.4) K/uL [place] # (Auto) (0.11-0.59) K/uL Eos # (Auto) (0-0.5) K/uL Baso # (Auto) (0-0.2) K/uL Immature Gran # (Auto) (0.00-0.02) K/uL PT INR APTT PTT Ratio VBG pH (7.36-7.41) VBG pCO2 (38-50) mmHg VBG pO2 mmHg VBG HCO3 mmol/L VBG O2 Saturation % VBG Base Excess mEq/L Barometric Pressure mm/Hg Sodium (136-145) mmol/L Potassium 4.6 (3.5-5.1) mmol/L Chloride (98-107) mmol/L Carbon Dioxide (21-32) mmol/L Anion Gap (3-11) BUN (7-18) mg/dl Creatinine (0.6-1.4) mg/dl Est Cr Clr Drug Dosing ml/min Est GFR ( Amer) ml/min Est GFR (Non-Af Amer) ml/min BUN/Creatinine Ratio (10-20) Glucose (70-99) mg/dl Lactate 0.9 (0.4-2.0) mmol/L Calcium (8.5-10.1) mg/dl Magnesium 2.8 H (1.8-2.4) mg/dl Total Bilirubin (0.2-1) mg/dl AST 18 ALT (12-78) U/L Alkaline Phosphatase (45-117) U/L Troponin I (0-0.045) ng/ml C-Reactive Protein (0-0.29) mg/dl NT-Pro-B Natriuret Pep (0-1800) pg/ml Total Protein (6.4-8.2) gm/dl Albumin (3.4-5.0) gm/dl Globulin (2.5-4.0) gm/dl Albumin/Globulin Ratio (0.9-2) Procalcitonin 0.46 (0-0.5) ng/ml Nasal Screen MRSA (PCR) (Negative) Digoxin (0.8-2.0) ng/ml SARS-CoV-2 (PCR) (Negative) Influenza Type A (PCR) (Neg) Influenza Type B (PCR) (Neg) RSV (RT-PCR) (Neg) 07/14/21 07/14/21 Range/Units 13:56 13:56 WBC (4.8-10.8) K/uL RBC (4.7-6.1) M/uL Hgb (14.0-18.0) g/dL Hct (42-52) % MCV (80-100) fL MCH (25-34) pg MCHC (32-36) g/dL RDW Std Deviation (36.4-46.3) fL RDW Coeff of Luciano (11.5-14.5) % Plt Count (130-400) K/uL MPV (7.4-10.4) fL Immature Gran % (Auto) % Neut % (Auto) % Lymph % (Auto) % [place] % (Auto) % Eos % (Auto) % Baso % (Auto) % Neut # (Auto) (1.4-6.5) K/uL Lymph # (Auto) (1.2-3.4) K/uL [place] # (Auto) (0.11-0.59) K/uL Eos # (Auto) (0-0.5) K/uL Baso # (Auto) (0-0.2) K/uL Immature Gran # (Auto) (0.00-0.02) K/uL PT 58.6 H INR 6.7 H* APTT 82.4 H* PTT Ratio 3.1 VBG pH (7.36-7.41) VBG pCO2 (38-50) mmHg VBG pO2 mmHg VBG HCO3 mmol/L VBG O2 Saturation % VBG Base Excess mEq/L Barometric Pressure mm/Hg Sodium (136-145) mmol/L Potassium (3.5-5.1) mmol/L Chloride (98-107) mmol/L Carbon Dioxide (21-32) mmol/L Anion Gap (3-11) BUN (7-18) mg/dl Creatinine (0.6-1.4) mg/dl Est Cr Clr Drug Dosing ml/min Est GFR ( Amer) ml/min Est GFR (Non-Af Amer) ml/min BUN/Creatinine Ratio (10-20) Glucose (70-99) mg/dl Lactate (0.4-2.0) mmol/L Calcium (8.5-10.1) mg/dl Magnesium (1.8-2.4) mg/dl Total Bilirubin (0.2-1) mg/dl AST ALT (12-78) U/L Alkaline Phosphatase (45-117) U/L Troponin I (0-0.045) ng/ml C-Reactive Protein 17.00 H (0-0.29) mg/dl NT-Pro-B Natriuret Pep (0-1800) pg/ml Total Protein (6.4-8.2) gm/dl Albumin (3.4-5.0) gm/dl Globulin (2.5-4.0) gm/dl Albumin/Globulin Ratio (0.9-2) Procalcitonin (0-0.5) ng/ml Nasal Screen MRSA (PCR) (Negative) Digoxin (0.8-2.0) ng/ml SARS-CoV-2 (PCR) (Negative) Influenza Type A (PCR) (Neg) Influenza Type B (PCR) (Neg) RSV (RT-PCR) (Neg) Administered Medications Baricitinib (4mg Daily X 14 Days (Egfr >60 Ml/Min/1.73m2)) 4 mg PO DAILY [facility]; Protocol Stop: 07/27/21 09:01 Last Admin: 07/14/21 17:02 Dose: 4 mg Documented by: [id number] Diltiazem HCl 125 mg/ Dextrose 125 mls @ 10 mls/hr IV .[id number] JOSE ALBERTO; Protocol Stop: 08/13/21 12:14 Last Titration: 07/14/21 14:02 Dose: 10 mg/hr, 10 mls/hr Documented by: [id number] Cosigned by: [id number] Admin: 07/14/21 13:01 Dose: 5 mg/hr, 5 mls/hr Documented by: [id number] Cosigned by: [id number] Sodium Chloride (Sodium Chloride 0.9% 10ml Flush) 30 ml IV DAILY@2000 JOSE ALBERTO Stop: 07/18/21 20:01 Last Admin: 07/14/21 18:39 Dose: 30 ml Documented by: [id number] Discontinued Medications Acetaminophen (Acetaminophen 1000 Mg/100 Ml Iv) 1,000 mg IV ONCE ONE Stop: 07/14/21 12:51 Last Admin: 07/14/21 13:03 Dose: 1,000 mg Documented by: [id number] Diltiazem HCl (Diltiazem Hcl 5 Mg/Ml 5 Ml Vial) 10 mg IV NOW STA Stop: 07/14/21 12:15 Last Admin: 07/14/21 12:31 Dose: 10 mg Documented by: [id number] Cosigned by: [id number] Furosemide (Furosemide 40 Mg/4 Ml Vial) 40 mg IV ONE ONE Stop: 07/14/21 13:08 Last Admin: 07/14/21 14:30 Dose: Not Given Documented by: [id number] Cefepime HCl (Maxipime) 2,000 mg in 20 mls @ 5 mls/min IV NOW STA; Protocol Stop: 07/14/21 13:00 Last Admin: 07/14/21 13:17 Dose: 5 mls/min Documented by: [id number] Dexamethasone 6 mg/ Syringe 1.5 mls @ 1 mls/min IV ONE ONE Stop: 07/14/21 14:14 Last Admin: 07/14/21 15:30 Dose: 1 mls/min Documented by: [id number] Remdesivir 200 mg/ Sodium (Chloride) 250 mls @ 125 mls/hr IV NOW ONE; Protocol Stop: 07/14/21 18:29 Last Infusion: 07/14/21 18:38 Dose: 0 mls/hr Documented by: [id number] Admin: 07/14/21 16:14 Dose: 125 mls/hr Documented by: [id number] Hyaluronidase 150 units/ (Syringe) 1 mls @ 0.017 mls/sec SQ NOW ONE; Protocol Stop: 07/14/21 17:46 Last Admin: 07/14/21 18:37 Dose: 0.017 mls/sec Documented by: [id number] Imaging Data Radiologist's Impression: Chest X-Ray 07/14/21 12:14 XR chest 1V portable CLINICAL HISTORY: Dyspnea, hypoxia, ?CHF. COMPARISON STUDY: 06/26/2021 TECHNIQUE: 1 view of the chest FINDINGS: Single frontal view of the chest demonstrates the heart to be enlarged. Compared to previous examination, there is increasing right pleural effusion with right middle lobe and right lower lobe atelectasis/collapse. Minimal left basilar atelectasis also present. There is also very minimal blunting of the left cost ophrenic angle suspicious for small left pleural effusion. There is no evidence for vascular congestion. There is no acute osseous pathology. IMPRESSION: Interval increase in right pleural effusion with right lower lobe and right middle lobe atelectasis/collapse. There is small left pleural effusion and left basilar atelectasis are also present. ACT 112: Negative or not required by law. Electronically signed by: Lucas Bai M.D. 07/14/2021 12:55 PM Discharge Plan Visit Data Chief Complaint: Tachycardia Stated Complaint: TACHYCARDIA, EDEMA ED Provider: Lopez Rios Discharge Problem: Rapid atrial fibrillation, Hypervolemia, Respiratory failure, 2019 novel coronavirus-infected pneumonia (NCIP), Elevated INR (international normalized ratio) Discharge Instructions Interventions: ED Discharge Assessment Last Done: 07/14/21 19:21 Discharge Problem: Hypervolemia Qualifiers: Hypervolemia type: other Qualified Code(s): E87.79 - Other fluid overload Respiratory failure Qualifiers: Chronicity: acute on chronic Respiratory failure complication: hypoxia and hypercapnia Qualified Code(s): J96.21 - Acute and chronic respiratory failure with hypoxia
--- NOTE | 2021-07-14 12:56 | XRay Report ---
XR chest 1V portable CLINICAL HISTORY: Dyspnea, hypoxia, ?CHF. COMPARISON STUDY: 06/26/2021 TECHNIQUE: 1 view of the chest FINDINGS: Single frontal view of the chest demonstrates the heart to be enlarged. Compared to previous examinat ion, there is increasing right pleural effusion with right middle lobe and right lower lobe atelectas is/collapse. Minimal left basilar atelectasis also present. There is also very minimal blunting of th e left costophrenic angle suspicious for small left pleural effusion. There is no evidence for vascul ar congestion. There is no acute osseous pathology. IMPRESSION: Interval increase in right pleural effusion with right lower lobe and right middle lobe a telectasis/collapse. There is small left pleural effusion and left basilar atelectasis are also prese nt. ACT 112: Negative or not required by law. Electronically signed by: Lucas Bai M.D. 07/14/2021 12:55 PM
[2021-07-14] MEDS ORDERED: CEFEPIME 2,000 MG/20 ML VIAL IV STA (12:57)
[2021-07-14] MEDS: dilTIAZem HCL 125 MG in DEXTROSE 5% 100 ML IV SCH (13:01)
[2021-07-14] MEDS ORDERED: FUROSEMIDE 40 MG/4 ML VIAL IV ONE (13:07)
[2021-07-14 13:09] LABS: Base Excess VBG 4.2 mEq/L; HCO3 VBG 33 mmol/L; Oxygen Saturation VBG < 60.0 %; PCO2 VBG 73 mmHg (38-50); PO2 VBG 35 mmHg; pH VBG 7.28 (7.36-7.41)
[2021-07-14 13:26] LABS: Alanine Aminotransferase 26 U/L (12-78); Albumin Globulin Ratio 0.5 (0.9-2); Albumin Level 2.3 gm/dl (3.4-5.0); Alkaline Phosphatase 86 U/L (45-117); BUN Creatinine Ratio 25.5 (10-20); Bilirubin,Total 0.6 mg/dl (0.2-1); Blood Urea Nitrogen 27 mg/dl (7-18); Calcium 9.1 mg/dl (8.5-10.1); Carbon Dioxide 28 mmol/L (21-32); Chloride 97 mmol/L (98-107); Creatinine Clr Calc Pharmacy 68.2 ml/min; Est GFR (African American) 77.9 ml/min; Est GFR (Non-African American) 67.2 ml/min; Globulin 4.5 gm/dl (2.5-4.0); Glucose 129 mg/dl (70-99); NT Pro B Type Natriuretic Pept 5028 pg/ml (0-1800); Sodium 134 mmol/L (136-145); Total Protein 6.8 gm/dl (6.4-8.2); Troponin I 0.041 ng/ml (0-0.045)
[2021-07-14 13:46] LABS: Influenza A virus by PCR Negative (Neg); Influenza B virus by PCR Negative (Neg); RSV by PCR Negative (Neg)
[2021-07-14] MEDS ORDERED: dexAMETHasone 6 MG in SYRINGE 0 ML IV ONE (14:13)
[2021-07-14 14:24] LABS: Potassium 4.6 mmol/L (3.5-5.1)
[2021-07-14 14:29] LABS: Magnesium 2.8 mg/dl (1.8-2.4)
[2021-07-14 14:32] LABS: Partial Thromboplastin Ratio 3.1; Prothrombin Time 58.6 Seconds (9.0-12.0)
[2021-07-14 14:54] LABS: INR 6.7 (0.9-1.1); Partial Thromboplastin Time 82.4 Seconds (21.0-31.0)
--- NOTE | 2021-07-14 15:35 | History & Physical Report ---
Date of Service July 14, 2021 Assessment & Plan (1) 2019 novel coronavirus-infected pneumonia (NCIP): Plan: Patient will be admitted to PCU On continious CPAP. Will start remdesevir/ baricitinib/dexamethasone as patient is open to all treatment and wants to be a full code. CRP is elevated. may need parentral nutrition if unable to eat due to CPAP poor prognosis (2) Rapid atrial fibrillation: Plan: Place on diltiazem drip and monitor likely from problem 1 (3) Elevated INR (international normalized ratio): Plan: INR is elevated. will hold coumadin and monitor (4) (HFpEF) heart failure with preserved ejection fraction: Plan: will check bnp in AM Will diurese overnight (40mg x1 of lasix) lasix 40 mg IV daily (5) CAD (coronary artery disease): Plan: hold home meds due to NPO from continuos BIPAP. History of Present Illness Chief Complaint: SOB Primary Care Provider: JONATHAN Russo 80 yo male presnets to the hospital after rescinding home hospice. Patient has h/oend-stage COPD, CAD, diastolic heart failure, atrial fibrilla tion on Coumadin. Patient was recently admittedfor COPD exacerbation and discharged to rehab and transitioned to home hospice. Patient reports feeling sick: with a fever, SOB. Once patient arrived, he was found to be hypoxic and in A Fib. Placed on bipap and diltiazem drip. Allergies Allergy/AdvReac Type Severity Reaction Status Date / Time acetazolamide Allergy Intermediate swelling Verified 05/27/21 13:09 [From Diamox Sequels] Home Medications Medication Instructions Recorded Confirmed Type multivitamin (Daily Multi-Vitamin) 1 tab PO QAM 04/11/21 06/21/21 History metoprolol tartrate 50 mg tablet 150 mg PO BID #0 tab 04/22/21 07/14/21 Rx (Lopressor) nystatin 100,000 unit/gram topical 1 applic EXT TID #30 g 04/22/21 07/14/21 Rx powder (Nystop) pantoprazole 40 mg tablet,delayed 40 mg PO BID #60 tab 04/22/21 07/14/21 Rx release furosemide 80 mg tablet (Lasix) 80 mg PO QAM #30 tab 05/10/21 07/14/21 Rx potassium chloride 20 mEq 20 meq PO BID #60 tab 05/10/21 07/14/21 Rx tablet,extended release(part/cryst) (Klor-Con M) lidocaine 1.8 % topical patch 1 patch TOPICAL DAILY #30 ea 05/25/21 06/21/21 Rx (ZTlido) atorvastatin 40 mg tablet 40 mg PO HS #30 tab 06/05/21 07/14/21 Rx diltiazem HCl 120 mg 120 mg PO QAM #30 cap 06/05/21 07/14/21 Rx capsule,extended release 24 hr tamsulosin 0.4 mg capsule (Flomax) 0.4 mg PO DAILY #30 cap 06/05/21 07/14/21 Rx BiPap Machine #1 ea 06/27/21 Rx digoxin 125 mcg (0.125 mg) tablet 125 mcg PO SuMoTuWeThSa@1600 #24 06/27/21 07/14/21 Rx (Digitek) tab warfarin 7.5 mg tablet (Jantoven) 7.5 mg PO SuMoWeFrSa@1600 #20 tab 06/27/21 07/14/21 Rx warfarin 5 mg tablet 6 mg PO DAILY 07/14/21 07/14/21 History Past Med/Surg History Medical History (HFpEF) heart failure with preserved ejection fraction Aortic stenosis, mild CAD (coronary artery disease) Cancer of prostate Chronic hypoxemic respiratory failure COPD (chronic obstructive pulmonary disease) Depression DVT (deep venous thrombosis) Dyslipidemia Heart disease HTN (hypertension) Myocardial infarct Sleep apnea TIA (transient ischemic attack) Surgical History History of appendectomy Hx of tonsillectomy Hx of vasectomy Family History Family/Other Prostate cancer Myocardial infarction Denies family history of Ovarian cancer Breast cancer Colorectal cancer Social History Smoking Status: Unknown if ever smoked Tobacco Type: Cigarettes Second Hand Exposure: No; Hx Alcohol Use: Yes Alcohol type: beer Alcohol Intake Frequency: 2-4 x/Month Hx Substance Use: No Preferred Language: Setswana Communication Ability: Effective Retail Visual Merchandiser Required: No Beliefs That Will Affect Care: None marital status: Current Living Situation: Spouse current occupational status: retired Feels Safe at Home: Yes caffeine: Yes Dental Care, Regularly: No Physical Activity Frequency: Does not Exercise Seatbelt Use: always Sunscreen Use: No Assistive Devices: Walker Review of Systems Review of Systems: Other (unable to obtain as patient is on BIPAP and focusing on breathing.) Physical Exam Constitutional: + ill appearing (on BIPAP) Eyes: PERRL, conjunctivae normal, anicteric sclerae ENMT: external ear and nose normal, oropharynx normal Neck: trachea midline, no thyromegaly Respiratory: + respiratory distress and + uses accessory muscles Auscultation: + diminished lung sounds and + rhonchi Cardiovascular: Rate/Rhythm: + tachycardic and + irregularly irregular Gastrointestinal (Abdomen): normal bowel sounds, soft, nontender, no hepatosplenomegaly Musculoskeletal: no cyanosis or clubbing, extremities motor strength 5/5 Skin: no rashes, warm and dry Neurologic: PERRL, EOMI, accommodation nl, no face palsy, no dysarthria Psychiatric: A+Ox3, euthymic affect Lymphatic: no cervical or axillary lymphadenopathy Results & Data Results & Data ([facility]) Vital Signs (Past 12 Hours) Vital Signs Temp Pulse Resp BP Pulse Ox 07/14/21 15:10 111 H 17 98 07/14/21 15:00 116 H 19 103/73 97 07/14/21 14:50 120 H 23 97 07/14/21 14:40 144 H 24 106/55 L 95 07/14/21 14:30 114 H 18 97 07/14/21 14:20 134 H 20 97 07/14/21 14:10 128 H 18 96 07/14/21 14:00 131 H 23 96 07/14/21 13:50 109 H 19 95 07/14/21 13:40 112 H 21 95 07/14/21 13:30 132 H 18 96 07/14/21 13:20 159 H 18 97 07/14/21 13:10 145 H 24 98 07/14/21 13:00 149 H 19 121/58 L 89 L 07/14/21 12:50 130 H 25 H 97 07/14/21 12:40 157 H 24 90 07/14/21 12:32 178 H 30 H 94 07/14/21 12:30 162 H 29 H 95 07/14/21 12:20 159 H 31 H 95 07/14/21 12:17 38.1 C H 164 H 30 H 154/84 H 94 07/14/21 12:16 164 H 36 H 95 07/14/21 12:15 143 H 30 H 94 PG Care Time/CCT Total # of Minutes Spent Total Time Spent with Patient: Total time spent is greater than 50% in coordination of care (as documented) at patient's floor/unit and/or counseling patient: Coding Level of Care Code 24160 Initial Inpt Care Lvl 3 Diagnoses 2019 novel coronavirus-infected pneumonia (NCIP) U07.1; J12.82 Elevated INR (international normalized ratio) R79.1 (HFpEF) heart failure with preserved ejection fraction I50.30 CAD (coronary artery disease) I25.10 Rapid atrial fibrillation I48.91
[2021-07-14] MEDS ORDERED: BARICITINIB COMMUNICATION ONE ×2 (15:48)
[2021-07-14] MEDS ORDERED: REMDESIVIR 200 MG in SODIUM CHLORIDE 0.9% 210 ML IV ONE (16:30)
[2021-07-14] MEDS: 4mg Daily x 14 days (eGFR >60 mL/min/1.73m2) PO SCH (17:02)
[2021-07-14] MEDS ORDERED: HYALURONIDASE SQ ONE (17:45)
[2021-07-14] MEDS: SODIUM CHLORIDE 0.9% 10ML FLUSH IV SCH (18:39)
[2021-07-15] MEDS: dilTIAZem HCL 125 MG in DEXTROSE 5% 100 ML IV SCH ×3 (00:15→22:15)
[2021-07-15 07:47] LABS: Hemoglobin 11.3 g/dL (14.0-18.0); Mean Corpuscular Hemoglobin 31.6 pg (25-34); Mean Corpuscular Hgb Conc 31.4 g/dL (32-36); Mean Corpuscular Volume 100.6 fL (80-100); Mean Platelet Volume 10.2 fL (7.4-10.4); Platelet Count 200 K/uL (130-400); RDW Coefficient of Variation 14.5 % (11.5-14.5); RDW Standard Deviation 53.8 fL (36.4-46.3); Red Blood Count 3.58 M/uL (4.7-6.1); White Blood Count 3.84 K/uL (4.8-10.8)
[2021-07-15 08:07] LABS: Prothrombin Time 80.7 Seconds (9.0-12.0)
[2021-07-15 08:11] LABS: BUN Creatinine Ratio 31.7 (10-20); Calcium 8.4 mg/dl (8.5-10.1); Creatinine Clr Calc Pharmacy 66.4 ml/min; Est GFR (African American) 75.3 ml/min; Est GFR (Non-African American) 64.9 ml/min; Potassium 4.5 mmol/L (3.5-5.1)
[2021-07-15 08:15] LABS: C Reactive Protein 18.8 mg/dl (0-0.29)
--- NOTE | 2021-07-15 09:12 | Hospitalist Progress Note ---
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/ baricitinib/dexamethasone, day 2 of treatment Lasix 40mg IV daily to keep lungs dry, Cr is stable he confirms he wants to be full code at this time I discussed that if he elects to be intubated, very unlikely that we would be able to extubate given his end stage COPD, he voiced understanding of this (2) Acute on chronic respiratory failure with hypoxia and hypercapnia: Plan: at baseline he wears 2.5L during the day and CPAP HS currently he is BIPAP dependent poor prognosis given his end stage COPD, was on hospice at home (3) Rapid atrial fibrillation: Plan: continue Diltiazem drip HR in the 80-110's this morning, BP elevated (4) Elevated INR (international normalized ratio): Plan: INR is 9.5 continue to hold Coumadin give Vitamin K 2.5mg IV (5) (HFpEF) heart failure with preserved ejection fraction: Plan: BNP elevated, continue Lasix 40mg IV daily (6) CAD (coronary artery disease): Plan: hold home meds due to NPO from continuos BIPAP. Plan: if he cannot come off BIPAP by tomorrow morning we need to either intubate or move to [employer]PER[employer] patient understands this his contact manager is his but he says she is admitted as well, will try to track her down Admission and Anticipated Discharge Date Admission Date: July 14, 2021 Subjective patient remains BIPAP dependent, this morning he is 16/8 with 50% FiO2 he is belly breathing tried to take him off BIPAP but did not last long this morning reviewed chart and labs, Cr is stable, got Lasix 40mg IV this morning, will ask RN to place pearson if needed discussed with him that if he cannot come off BIPAP by tomorrow morning then we need to discuss intubation vs comfort measures his HR is 80-110 on the Diltiazem drip he confirms he was on hospice at home, he said that hospice told him to come to the hospital he confirms that for right now he wants to be full code, but he is going to think about intubation I explained to him that with his end stage COPD it would be unlikely that we could extubate him if he wants to go that route Review of Systems Review of Systems: All systems reviewed & are unremarkable except as noted in Subjective Respiratory: + cough, + dyspnea and + dyspnea on exertion Cardiovascular: no chest pain Physical Exam Physical Exam: General: well developed, well nourished, obese elderly male, ill appearing, mild distress Neck: supple, trachea midline, normal thyroid Lungs: diminished breath sounds bilaterally, + tachypnea, + accessory muscle use on BIPAP Heart: irregular irregular S1 and S2, tachycardic, no murmur, peripheral pulses normal, capillary refill normal, + edema bilateral legs Abdomen: soft, NT, slightly distended, + BS, no hepatomegaly, normal to percussion Extremities: normal in appearance, no cyanosis, no petechiae, strength is diminished Neuro: awake, cooperative, moves all extremities, no focal motor deficits, CN II-XII intact Skin: warm, dry, no rash, normal turgor Psych: Awake, alert oriented x 3, depressed affect, tearful Results & Data Results & Data ([facility]) Vital Signs (Past 12 Hours) Vital Signs Temp Pulse Resp BP Pulse Ox 07/15/21 07:35 96 H 22 95 07/15/21 03:31 79 29 H 93 07/15/21 02:11 63 14 93 07/15/21 00:00 98 H 22 193/83 H 92 07/14/21 23:50 36.8 C 07/14/21 23:32 84 19 96 07/14/21 22:50 80 17 95 07/14/21 22:40 103 H 24 95 07/14/21 22:30 92 H 24 148/75 H 94 07/14/21 22:20 99 H 17 94 07/14/21 22:10 89 16 94 07/14/21 22:00 87 20 95 07/14/21 21:50 87 19 95 07/14/21 21:40 75 19 149/98 H 95 07/14/21 21:30 114 H 21 94 07/14/21 21:20 90 16 94 07/14/21 21:10 96 H 20 94 Laboratory Results Laboratory Results - last 24 hr 07/14/21 07/14/21 07/14/21 12:22 12:23 12:23 WBC 7.32 RBC 4.05 L Hgb 13.1 L Hct 40.8 L MCV 100.7 H MCH 32.3 MCHC 32.1 RDW Std Deviation 54.5 H RDW Coeff of Luciano 14.7 H Plt Count 219 MPV 10.8 H Immature Gran % (Auto) 0.1 Neut % (Auto) 85.3 Lymph % (Auto) 10.8 [place] % (Auto) 3.8 Eos % (Auto) 0.0 Baso % (Auto) 0.0 Neut # (Auto) 6.24 Lymph # (Auto) 0.79 L [place] # (Auto) 0.28 Eos # (Auto) 0.00 Baso # (Auto) 0.00 Immature Gran # (Auto) 0.01 PT Cancelled INR Cancelled APTT Cancelled PTT Ratio Cancelled VBG pH VBG pCO2 VBG pO2 VBG HCO3 VBG O2 Saturation VBG Base Excess Barometric Pressure Sodium 134 L Potassium Chloride 97 L Carbon Dioxide 28 Anion Gap 9.0 BUN 27 H Creatinine 1.05 Est Cr Clr Drug Dosing 68.2 Est GFR ( Amer) 77.9 Est GFR (Non-Af Amer) 67.2 BUN/Creatinine Ratio 25.5 H Glucose 129 H Lactate Calcium 9.1 Magnesium Total Bilirubin 0.6 AST TNP ALT 26 Alkaline Phosphatase 86 Troponin I 0.041 C-Reactive Protein NT-Pro-B Natriuret Pep 5028 H Total Protein 6.8 Albumin 2.3 L Globulin 4.5 H Albumin/Globulin Ratio 0.5 L Procalcitonin Nasal Screen MRSA (PCR) Digoxin SARS-CoV-2 (PCR) Influenza Type A (PCR) Influenza Type B (PCR) RSV (RT-PCR) 07/14/21 07/14/21 07/14/21 12:23 12:23 12:38 WBC RBC Hgb Hct MCV MCH MCHC RDW Std Deviation RDW Coeff of Luciano Plt Count MPV Immature Gran % (Auto) Neut % (Auto) Lymph % (Auto) [place] % (Auto) Eos % (Auto) Baso % (Auto) Neut # (Auto) Lymph # (Auto) [place] # (Auto) Eos # (Auto) Baso # (Auto) Immature Gran # (Auto) PT INR APTT PTT Ratio VBG pH VBG pCO2 VBG pO2 VBG HCO3 VBG O2 Saturation VBG Base Excess Barometric Pressure Sodium Potassium Chloride Carbon Dioxide Anion Gap BUN Creatinine Est Cr Clr Drug Dosing Est GFR ( Amer) Est GFR (Non-Af Amer) BUN/Creatinine Ratio Glucose Lactate Calcium Magnesium Total Bilirubin AST ALT Alkaline Phosphatase Troponin I C-Reactive Protein NT-Pro-B Natriuret Pep Total Protein Albumin Globulin Albumin/Globulin Ratio Procalcitonin Nasal Screen MRSA (PCR) Digoxin 1.6 SARS-CoV-2 (PCR) Influenza Type A (PCR) Influenza Type B (PCR) RSV (RT-PCR) 07/14/21 07/14/21 07/14/21 12:47 12:47 13:34 WBC RBC Hgb Hct MCV MCH MCHC RDW Std Deviation RDW Coeff of Luciano Plt Count MPV Immature Gran % (Auto) Neut % (Auto) Lymph % (Auto) [place] % (Auto) Eos % (Auto) Baso % (Auto) Neut # (Auto) Lymph # (Auto) [place] # (Auto) Eos # (Auto) Baso # (Auto) Immature Gran # (Auto) PT INR APTT PTT Ratio VBG pH 7.28 L VBG pCO2 73 H VBG pO2 35 VBG HCO3 33 VBG O2 Saturation < 60.0 VBG Base Excess 4.2 Barometric Pressure 732.2 Sodium Potassium Chloride Carbon Dioxide Anion Gap BUN Creatinine Est Cr Clr Drug Dosing Est GFR ( Amer) Est GFR (Non-Af Amer) BUN/Creatinine Ratio Glucose Lactate Calcium Magnesium Total Bilirubin AST ALT Alkaline Phosphatase Troponin I C-Reactive Protein NT-Pro-B Natriuret Pep Total Protein Albumin Globulin Albumin/Globulin Ratio Procalcitonin Nasal Screen MRSA (PCR) Negative Digoxin SARS-CoV-2 (PCR) POSITIVE A* Influenza Type A (PCR) Negative Influenza Type B (PCR) Negative RSV (RT-PCR) Negative 07/14/21 07/14/21 07/14/21 13:56 13:56 13:56 WBC RBC Hgb Hct MCV MCH MCHC RDW Std Deviation RDW Coeff of Luciano Plt Count MPV Immature Gran % (Auto) Neut % (Auto) Lymph % (Auto) [place] % (Auto) Eos % (Auto) Baso % (Auto) Neut # (Auto) Lymph # (Auto) [place] # (Auto) Eos # (Auto) Baso # (Auto) Immature Gran # (Auto) PT INR APTT PTT Ratio VBG pH VBG pCO2 VBG pO2 VBG HCO3 VBG O2 Saturation VBG Base Excess Barometric Pressure Sodium Potassium 4.6 Chloride Carbon Dioxide Anion Gap BUN Creatinine Est Cr Clr Drug Dosing Est GFR ( Amer) Est GFR (Non-Af Amer) BUN/Creatinine Ratio Glucose Lactate 0.9 Calcium Magnesium 2.8 H Total Bilirubin AST 18 ALT Alkaline Phosphatase Troponin I C-Reactive Protein NT-Pro-B Natriuret Pep Total Protein Albumin Globulin Albumin/Globulin Ratio Procalcitonin 0.46 Nasal Screen MRSA (PCR) Digoxin SARS-CoV-2 (PCR) Influenza Type A (PCR) Influenza Type B (PCR) RSV (RT-PCR) 07/14/21 07/14/21 07/15/21 13:56 13:56 07:25 WBC RBC Hgb Hct MCV MCH MCHC RDW Std Deviation RDW Coeff of Luciano Plt Count MPV Immature Gran % (Auto) Neut % (Auto) Lymph % (Auto) [place] % (Auto) Eos % (Auto) Baso % (Auto) Neut # (Auto) Lymph # (Auto) [place] # (Auto) Eos # (Auto) Baso # (Auto) Immature Gran # (Auto) PT 58.6 H Pending INR 6.7 H* Pending APTT 82.4 H* PTT Ratio 3.1 VBG pH VBG pCO2 VBG pO2 VBG HCO3 VBG O2 Saturation VBG Base Excess Barometric Pressure Sodium Potassium Chloride Carbon Dioxide Anion Gap BUN Creatinine Est Cr Clr Drug Dosing Est GFR ( Amer) Est GFR (Non-Af Amer) BUN/Creatinine Ratio Glucose Lactate Calcium Magnesium Total Bilirubin AST ALT Alkaline Phosphatase Troponin I C-Reactive Protein 17.00 H NT-Pro-B Natriuret Pep Total Protein Albumin Globulin Albumin/Globulin Ratio Procalcitonin Nasal Screen MRSA (PCR) Digoxin SARS-CoV-2 (PCR) Influenza Type A (PCR) Influenza Type B (PCR) RSV (RT-PCR) 07/15/21 07/15/21 07:25 07:25 WBC 3.84 L RBC 3.58 L Hgb 11.3 L Hct 36.0 L MCV 100.6 H MCH 31.6 MCHC 31.4 L RDW Std Deviation 53.8 H RDW Coeff of Luciano 14.5 Plt Count 200 MPV 10.2 Immature Gran % (Auto) Neut % (Auto) Lymph % (Auto) [place] % (Auto) Eos % (Auto) Baso % (Auto) Neut # (Auto) Lymph # (Auto) [place] # (Auto) Eos # (Auto) Baso # (Auto) Immature Gran # (Auto) PT INR APTT PTT Ratio VBG pH VBG pCO2 VBG pO2 VBG HCO3 VBG O2 Saturation VBG Base Excess Barometric Pressure Sodium 137 Potassium 4.5 Chloride 99 Carbon Dioxide 28 Anion Gap 9.0 BUN 34 H Creatinine 1.08 Est Cr Clr Drug Dosing 66.4 Est GFR ( Amer) 75.3 Est GFR (Non-Af Amer) 64.9 BUN/Creatinine Ratio 31.7 H Glucose 118 H Lactate Calcium 8.4 L Magnesium Total Bilirubin AST ALT Alkaline Phosphatase Troponin I C-Reactive Protein 18.80 H NT-Pro-B Natriuret Pep 2649 H Total Protein Albumin Globulin Albumin/Globulin Ratio Procalcitonin Nasal Screen MRSA (PCR) Digoxin SARS-CoV-2 (PCR) Influenza Type A (PCR) Influenza Type B (PCR) RSV (RT-PCR) Medications Administered Current Inpatient Medications Baricitinib (4mg Daily X 14 Days (Egfr >60 Ml/Min/1.73m2)) 4 mg PO DAILY [facility]; Protocol Stop: 07/27/21 09:01 Last Admin: 07/14/21 17:02 Dose: 4 mg Documented by: Furosemide (Furosemide 40 Mg/4 Ml Vial) 40 mg IV DAILY [facility] Stop: 08/14/21 08:59 Diltiazem HCl 125 mg/ Dextrose 125 mls @ 10 mls/hr IV .[id number] [facility]; Protocol Stop: 08/13/21 12:14 Last Admin: 07/15/21 00:15 Dose: 10 mg/hr, 10 mls/hr Documented by: Remdesivir 100 mg/ Sodium (Chloride) 250 mls @ 250 mls/hr IV Q24H [facility]; Protocol Stop: 07/18/21 20:59 Sodium Chloride (Sodium Chloride 0.9% 10ml Flush) 30 ml IV DAILY@2000 JOSE ALBERTO Stop: 07/18/21 20:01 Last Admin: 07/14/21 18:39 Dose: 30 ml Documented by: PG Care Time/CCT Total # of Minutes Spent Total Time Spent with Patient: Total time spent is greater than 50% in coordination of care (as documented) at patient's floor/unit and/or counseling patient: Coding Level of Care Code 99232 Subseq Hosp Care Lvl 3 Diagnoses 2019 novel coronavirus-infected pneumonia (NCIP) U07.1; J12.82 Rapid atrial fibrillation I48.91 Elevated INR (international normalized ratio) R79.1 (HFpEF) heart failure with preserved ejection fraction I50.30 CAD (coronary artery disease) I25.10 Acute on chronic respiratory failure with hypoxia and hypercapnia J96.21; J96.22
[2021-07-15 09:13] LABS: INR 9.5 (0.9-1.1)
[2021-07-15] MEDS ORDERED: PHYTONADIONE 2.5 MG in SODIUM CHLORIDE 0.9% 50 ML IV ONE (09:45)
[2021-07-15] MEDS: 4mg Daily x 14 days (eGFR >60 mL/min/1.73m2) PO SCH (10:49)
[2021-07-15] MEDS: FUROSEMIDE 40 MG/4 ML VIAL IV SCH (10:49)
[2021-07-15] MEDS: dexAMETHasone 6 MG in SYRINGE 0 ML IV SCH (10:49)
--- NOTE | 2021-07-15 12:10 | Electrocardiogram Report ---
Test Reason : Blood Pressure : / mmHG Vent. Rate : 165 BPM Atrial Rate : 192 BPM P-R Int : 000 ms QRS Dur : 088 ms QT Int : 250 ms P-R-T Axes : 000 -22 162 degrees QTc Int : 414 ms Poor data quality, interpretation may be adversely affected Atrial fibrillation with rapid ventricular response Abnormal ECG When compared with ECG of 21-JUN-2021 09:43, Vent. rate has increased BY [address] now depressed in Anterolateral leads Nonspecific T wave abnormality no longer evident in Inferior leads Confirmed by Clayton Willis ([id number]) on 07/15/2021 12:10:02 PM Referred By: REFERRED SELF Confirmed By:Clayton Willis
[2021-07-15 13:32] LABS: Appearance Urine Clear (Clear); Bacteria Urine Automated Negative (Negative); Bilirubin Urine Negative (Negative); Blood Urine Trace (Negative); Color Urine Dark Yellow; Epithelial Cell Urine Auto 20-30 /lpf (0-5); Glucose Urine UA Negative (Negative); Ketones Urine Trace (Negative); Leukocyte Esterase Urine Negative (Negative); Nitrite Urine Negative (Negative); Protein Urine Trace (Negative); Specific Gravity Urine 1.017 (1.000-1.030); Urobilinogen Urine Negative (Negative)
[2021-07-15] MEDS: REMDESIVIR 100 MG in SODIUM CHLORIDE 0.9% 230 ML IV SCH (20:03)
[2021-07-15] MEDS: SODIUM CHLORIDE 0.9% 10ML FLUSH IV SCH (21:05)
[2021-07-16] MEDS: dilTIAZem HCL 125 MG in DEXTROSE 5% 100 ML IV SCH ×4 (00:19→13:23)
[2021-07-16 08:54] LABS: INR 1.1 (0.9-1.1); Prothrombin Time 11.4 Seconds (9.0-12.0)
[2021-07-16] MEDS: 4mg Daily x 14 days (eGFR >60 mL/min/1.73m2) PO SCH (09:15)
[2021-07-16] MEDS: FUROSEMIDE 40 MG/4 ML VIAL IV SCH (09:16)
[2021-07-16] MEDS: dexAMETHasone 6 MG in SYRINGE 0 ML IV SCH (09:16)
[2021-07-16] MEDS ORDERED: METOPROLOL TARTRATE 1 MG/ML VIAL IV STA (12:43)
[2021-07-16] MEDS ORDERED: FUROSEMIDE 80 MG TAB PO SCH (12:45)
[2021-07-16] MEDS ORDERED: METOPROLOL TARTRATE 50 MG TAB PO SCH (12:45)
--- NOTE | 2021-07-16 12:50 | Hospitalist Progress Note ---
Date of Service July 16, 2021 Assessment & Plan (1) 2019 novel coronavirus-infected pneumonia (NCIP): Plan: initially on BIPAP 16/8 and 50% FiO2, accessory muscle use able to take off BIPAP this morning, stable on 6L, O2 goal is 88%, d/w RN continue remdesevir/ baricitinib/dexamethasone, day 3 of treatment Lasix 40mg IV daily to keep lungs dry, Cr is stable he confirms he wants to be full code at this time (2) Acute on chronic respiratory failure with hypoxia and hypercapnia: Plan: at baseline he wears 2.5L during the day and CPAP HS initially he was BIPAP dependent, but stable on 6L today poor prognosis given his end stage COPD, was on hospice at home wean oxygen as tolerated, saturation goal is 88% wear CPAP/BIPAP HS he told the RN he does not have CPAP at home, off for 3 weeks now (3) Rapid atrial fibrillation: Plan: continue Diltiazem drip, had to increase to 15mg/hr this morning HR up to 160, no symptoms give Lopressor 5mg IV and Digoxin 125mcg IV resume Lopressor 150mg PO BID, give dose now resume Digoxin 125mcg PO, give dose later this afternoon resume Coumadin at 6mg PO daily as INR is 1.1 this morning after Vitamin K yesterday (4) Elevated INR (international normalized ratio): Plan: INR was 9.5 on 07/15, now down to 1.1 after Vitamin K 2.5mg IV resume Coumadin, daily INR (5) (HFpEF) heart failure with preserved ejection fraction: Plan: BNP elevated, continue Lasix 40mg IV daily (6) CAD (coronary artery disease): Plan: resume all home medications Plan: get HR under control with metoprolol and digoxin keep saturations at 88% prognosis still guarded but a little better today Admission and Anticipated Discharge Date Admission Date: July 14, 2021 Subjective patient doing much better today, he is off BIPAP, stable on 6L NC, told RN to keep saturations at 88% with his severe COPD HR was okay this morning but now in RVR, rates 140-160, no chest pain, no palpitations reviewed medications, he did not get Metoprolol 150mg or Digoxin 125mcg this morning will give Lopressor 5mg IV and Digoxin 125mcg IV as well as oral meds and follow HR he is eating well he has a productive cough, will get him flutter valve INR is 1.1, will resume Coumadin today, 5mg daily Review of Systems Review of Systems: All systems reviewed & are unremarkable except as noted in Subjective Respiratory: + cough, + dyspnea and + dyspnea on exertion Cardiovascular: no chest pain Gastrointestinal: no abdominal pain, no nausea, no vomiting, no constipation and no diarrhea/loose stools Physical Exam Physical Exam: General: well developed, well nourished, obese elderly male, ill appearing, mild distress Neck: supple, trachea midline, normal thyroid Lungs: diminished breath sounds bilaterally, + tachypnea, slight accessory muscle use Heart: irregular irregular S1 and S2, tachycardic, no murmur, peripheral pulses normal, capillary refill normal, + edema bilateral legs Abdomen: soft, NT, slightly distended, + BS, no hepatomegaly, normal to percussion Extremities: normal in appearance, no cyanosis, no petechiae, strength is diminished Neuro: awake, cooperative, moves all extremities, no focal motor deficits, CN II-XII intact Skin: warm, dry, no rash, normal turgor Psych: Awake, alert oriented x 3, depressed affect, tearful Results & Data Results & Data ([facility]) Vital Signs (Past 12 Hours) Vital Signs Temp Pulse Pulse Resp BP Pulse Ox 07/16/21 12:02 36.5 C 110 H 22 133/76 89 L 07/16/21 10:00 124 H 136/87 07/16/21 08:00 36.6 C 83 110 H 24 114/69 89 L 07/16/21 04:05 65 24 96 07/16/21 02:53 36.6 C 67 18 139/67 96 Laboratory Results Laboratory Results - last 24 hr 07/14/21 07/15/21 07/16/21 12:38 Unknown 08:08 PT 11.4 INR 1.1 Urine Color Dark Yellow Urine Appearance Clear Urine pH 5.0 Ur Specific [place] 1.017 Urine Protein Trace H Urine Glucose (UA) Negative Urine Ketones Trace H Urine Blood Trace H Urine Nitrite Negative Urine Bilirubin Negative Urine Urobilinogen Negative Ur Leukocyte Esterase Negative Urine WBC (Auto) 1-5 Urine RBC (Auto) 5-10 H U Hyaline Cast (Auto) 5-10 H U Epithel Cells (Auto) 20-30 H Urine Bacteria (Auto) Negative Bld Cult Staph aureus PCR Negative Blood Culture MRSA PCR Negative Medications Administered Current Inpatient Medications Baricitinib (4mg Daily X 14 Days (Egfr >60 Ml/Min/1.73m2)) 4 mg PO DAILY [facility]; Protocol Stop: 07/27/21 09:01 Last Admin: 07/16/21 09:15 Dose: 4 mg Documented by: Digoxin (Digoxin 0.125 Mg Tab) 0.125 mg PO [id number]@1600 [facility] Stop: 08/15/21 15:59 Furosemide (Furosemide 40 Mg/4 Ml Vial) 40 mg IV DAILY [facility] Stop: 08/14/21 08:59 Last Admin: 07/16/21 09:16 Dose: 40 mg Documented by: Diltiazem HCl 125 mg/ Dextrose 125 mls @ 10 mls/hr IV .[id number] [facility]; Protocol Stop: 08/13/21 12:14 Last Admin: 07/16/21 12:35 Dose: 15 mg/hr, 15 mls/hr Documented by: Remdesivir 100 mg/ Sodium (Chloride) 250 mls @ 250 mls/hr IV Q24H [facility]; Protocol Stop: 07/18/21 20:59 Last Infusion: 07/15/21 21:05 Dose: Infused Documented by: Dexamethasone 6 mg/ Syringe 1.5 mls @ 1 mls/min IV QAM [facility] Stop: 08/14/21 09:44 Last Admin: 07/16/21 09:16 Dose: 1 mls/min Documented by: Digoxin 125 mcg/ Syringe 10 mls @ 2 mls/min IV NOW STA Stop: 07/16/21 12:47 Metoprolol Tartrate (Metoprolol Tartrate 50 Mg Tab) 150 mg PO BID [facility] Stop: 08/15/21 12:44 Metoprolol Tartrate (Metoprolol Tartrate 1 Mg/Ml Vial) 5 mg IV NOW STA Stop: 07/16/21 12:44 Sodium Chloride (Sodium Chloride 0.9% 10ml Flush) 30 ml IV DAILY@2000 [facility] Stop: 07/18/21 20:01 Last Admin: 07/15/21 21:05 Dose: 30 ml Documented by: PG Care Time/CCT Total # of Minutes Spent Total Time Spent with Patient: Total time spent is greater than 50% in coordination of care (as documented) at patient's floor/unit and/or counseling patient: Coding Level of Care Code 57377 Subseq Hosp Care Lvl 3 Diagnoses 2019 novel coronavirus-infected pneumonia (NCIP) U07.1; J12.82 Acute on chronic respiratory failure with hypoxia and hypercapnia J96.21; J96.22 Rapid atrial fibrillation I48.91 Elevated INR (international normalized ratio) R79.1 (HFpEF) heart failure with preserved ejection fraction I50.30 CAD (coronary artery disease) I25.10
[2021-07-16] MEDS ORDERED: METOPROLOL TARTRATE 1 MG/ML VIAL IV ONE (12:56)
[2021-07-16] MEDS ORDERED: DIGOXIN 125 MCG in SYRINGE 9.5 ML IV STA (13:15)
[2021-07-16] MEDS ORDERED: DIGOXIN 0.125 MG TAB PO SCH (16:00)
[2021-07-16] MEDS: WARFARIN SOD 6 MG TAB PO SCH (17:12)
[2021-07-16] MEDS: METOPROLOL TARTRATE 100 MG TAB PO SCH (19:42)
[2021-07-16] MEDS: REMDESIVIR 100 MG in SODIUM CHLORIDE 0.9% 230 ML IV SCH (19:42)
[2021-07-16] MEDS: PANTOprazole 40 MG TAB PO SCH (19:43)
[2021-07-16] MEDS: POTASSIUM CHLORIDE CRTAB 20 MEQ TABCR PO SCH (19:43)
[2021-07-16] MEDS ORDERED: ONDANSETRON INJ 2 MG/ML 2 ML VIAL IV ONE (19:53)
[2021-07-16] MEDS: SODIUM CHLORIDE 0.9% 10ML FLUSH IV SCH (20:58)
[2021-07-17] MEDS: dexAMETHasone 6 MG in SYRINGE 0 ML IV SCH (08:55)
[2021-07-17] MEDS: METOPROLOL TARTRATE 100 MG TAB PO SCH ×2 (08:56→20:13)
[2021-07-17] MEDS: POTASSIUM CHLORIDE CRTAB 20 MEQ TABCR PO SCH ×2 (08:56→20:12)
[2021-07-17] MEDS: PANTOprazole 40 MG TAB PO SCH ×2 (08:56→20:13)
[2021-07-17] MEDS: dilTIAZem ER 120 MG CAPCR PO SCH (08:57)
[2021-07-17] MEDS: TAMSULOSIN HCL 0.4 MG CAP PO SCH (08:58)
[2021-07-17] MEDS: 4mg Daily x 14 days (eGFR >60 mL/min/1.73m2) PO SCH (09:11)
[2021-07-17] MEDS: FUROSEMIDE 40 MG/4 ML VIAL IV SCH (09:11)
[2021-07-17 09:26] LABS: Hemoglobin 12.2 g/dL (14.0-18.0); Mean Corpuscular Hemoglobin 31.7 pg (25-34); Mean Corpuscular Hgb Conc 32.1 g/dL (32-36); Mean Corpuscular Volume 98.7 fL (80-100); Mean Platelet Volume 10.2 fL (7.4-10.4); Platelet Count 333 K/uL (130-400); RDW Coefficient of Variation 14.5 % (11.5-14.5); RDW Standard Deviation 52.3 fL (36.4-46.3); Red Blood Count 3.85 M/uL (4.7-6.1); White Blood Count 4.32 K/uL (4.8-10.8)
[2021-07-17 09:29] LABS: INR 1.1 (0.9-1.1); Prothrombin Time 11.2 Seconds (9.0-12.0)
[2021-07-17 09:52] LABS: BUN Creatinine Ratio 43.3 (10-20); C Reactive Protein 7.54 mg/dl (0-0.29); Calcium 8.5 mg/dl (8.5-10.1); Creatinine Clr Calc Pharmacy 61.8 ml/min; Est GFR (African American) 70.5 ml/min; Est GFR (Non-African American) 60.8 ml/min; Potassium 4.1 mmol/L (3.5-5.1)
--- NOTE | 2021-07-17 12:33 | Hospitalist Progress Note ---
Date of Service July 17, 2021 Assessment & Plan (1) 2019 novel coronavirus-infected pneumonia (NCIP): Plan: initially on BIPAP 16/8 and 50% FiO2, accessory muscle use able to take off BIPAP during the day, stable on 5L, O2 goal is 88%, d/w RN continue remdesevir/ baricitinib/dexamethasone, day 4 of treatment Lasix 40mg IV daily to keep lungs dry, Cr is stable he confirms he wants to be full code at this time (2) Acute on chronic respiratory failure with hypoxia and hypercapnia: Plan: at baseline he wears 2.5L during the day and CPAP HS initially he was BIPAP dependent, but stable on 5L today, normal respiratory effort poor prognosis given his end stage COPD, was on hospice at home surprisingly he is getting better wean oxygen as tolerated, saturation goal is 88% wear CPAP/BIPAP HS he told the RN he does not have CPAP at home, off for 3 weeks now, need to arrange this (3) Rapid atrial fibrillation: Plan: resolved on 07/16 after adding back metoprolol and digoxin to his Cardizem HR 80's today resume Cardizem 120mg daily resume Lopressor 100mg PO BID resume Digoxin 125mcg PO daily resume Coumadin at 6mg PO daily, INR is 1.1 again today if INR low tomorrow will give Lovenox (4) Elevated INR (international normalized ratio): Plan: INR was 9.5 on 07/15, now down to 1.1 after Vitamin K 2.5mg IV on 07/15 resume Coumadin, daily INR (5) (HFpEF) heart failure with preserved ejection fraction: Plan: BNP elevated, continue Lasix 40mg IV daily (6) CAD (coronary artery disease): Plan: resume all home medications Plan: keep saturations at 88% prognosis still guarded but a little better today Admission and Anticipated Discharge Date Admission Date: July 14, 2021 Subjective patient doing well, he c/o some nausea, no vomiting, had a BM a few days ago stable off of BIPAP during the day, on 5L, no distress at all, minimal cough, no fever Review of Systems Review of Systems: All systems reviewed & are unremarkable except as noted in Subjective Respiratory: + cough, + dyspnea and + dyspnea on exertion Gastrointestinal: + nausea Physical Exam Physical Exam: General: well developed, well nourished, obese elderly male, ill appearing, mild distress Neck: supple, trachea midline, normal thyroid Lungs: diminished breath sounds bilaterally, normal respiratory effort, slight accessory muscle use Heart: irregular irregular S1 and S2, tachycardic, no murmur, peripheral pulses normal, capillary refill normal, + edema bilateral legs Abdomen: soft, NT, slightly distended, + BS, no hepatomegaly, normal to percussion Extremities: normal in appearance, no cyanosis, no petechiae, strength is diminished Neuro: awake, cooperative, moves all extremities, no focal motor deficits, CN II-XII intact Skin: warm, dry, no rash, normal turgor Psych: Awake, alert oriented x 3, depressed affect Results & Data Results & Data ([facility]) Vital Signs (Past 12 Hours) Vital Signs Temp Pulse Pulse Resp BP Pulse Ox 07/17/21 11:07 36.4 C L 63 19 114/58 L 95 07/17/21 08:00 70 07/17/21 07:35 89 L 07/17/21 07:14 36.4 C L 88 22 131/68 75 L 07/17/21 03:32 76 18 95 07/17/21 03:23 36.5 C 72 16 106/56 L 92 Laboratory Results Laboratory Results - last 24 hr 07/17/21 07/17/21 07/17/21 08:54 08:54 08:54 WBC 4.32 L RBC 3.85 L Hgb 12.2 L Hct 38.0 L MCV 98.7 MCH 31.7 MCHC 32.1 RDW Std Deviation 52.3 H RDW Coeff of Luciano 14.5 Plt Count 333 MPV 10.2 PT 11.2 INR 1.1 Sodium 138 Potassium 4.1 Chloride 101 Carbon Dioxide 32 Anion Gap 6.0 BUN 49 H Creatinine 1.14 Est Cr Clr Drug Dosing 61.8 Est GFR ( Amer) 70.5 Est GFR (Non-Af Amer) 60.8 BUN/Creatinine Ratio 43.3 H Glucose 145 H Calcium 8.5 C-Reactive Protein 7.54 H Medications Administered Current Inpatient Medications Baricitinib (4mg Daily X 14 Days (Egfr >60 Ml/Min/1.73m2)) 4 mg PO DAILY [facility]; Protocol Stop: 07/27/21 09:01 Last Admin: 07/17/21 09:11 Dose: 4 mg Documented by: Diltiazem HCl (Diltiazem Er 120 Mg Capcr) 120 mg PO QAM [facility] Stop: 08/16/21 08:59 Last Admin: 07/17/21 08:57 Dose: 120 mg Documented by: Furosemide (Furosemide 40 Mg/4 Ml Vial) 40 mg IV DAILY [facility] Stop: 08/14/21 08:59 Last Admin: 07/17/21 09:11 Dose: 40 mg Documented by: Diltiazem HCl 125 mg/ Dextrose 125 mls @ 0 mls/hr IV .Q0M [facility]; Protocol Stop: 08/13/21 12:14 Last Titration: 07/16/21 15:18 Dose: 0 mg/hr, 0 mls/hr Documented by: Remdesivir 100 mg/ Sodium (Chloride) 250 mls @ 250 mls/hr IV Q24H [facility]; Protocol Stop: 07/18/21 20:59 Last Infusion: 07/16/21 20:58 Dose: Infused Documented by: Dexamethasone 6 mg/ Syringe 1.5 mls @ [facility] Stop: 08/14/21 09:44 Last Admin: 07/17/21 08:55 Dose: 1 mls/min Documented by: Metoprolol Tartrate (Metoprolol Tartrate 100 Mg Tab) 100 mg PO BID [facility] Stop: 08/15/21 20:59 Last Admin: 07/17/21 08:56 Dose: 100 mg Documented by: Pantoprazole Sodium (Pantoprazole 40 Mg Tab) 40 mg PO BID [facility] Stop: 08/15/21 20:59 Last Admin: 07/17/21 08:56 Dose: 40 mg Documented by: Potassium Chloride (Potassium Chloride Crtab 20 Meq Tabcr) 20 meq PO BID [facility] Stop: 08/15/21 20:59 Last Admin: 07/17/21 08:56 Dose: 20 meq Documented by: Sodium Chloride (Sodium Chloride 0.9% 10ml Flush) 30 ml IV DAILY@1999 [facility] Stop: 07/18/21 20:01 Last Admin: 07/16/21 20:58 Dose: 30 ml Documented by: Tamsulosin HCl (Tamsulosin Hcl 0.4 Mg Cap) 0.4 mg PO DAILY [facility] Stop: 08/16/21 08:59 Last Admin: 07/17/21 08:58 Dose: 0.4 mg Documented by: Warfarin Sodium (Warfarin Sod 6 Mg Tab) 6 mg PO DAILY@1600 [facility] Stop: 08/15/21 15:59 Last Admin: 07/16/21 17:12 Dose: 6 mg Documented by: PG Care Time/CCT Total # of Minutes Spent Total Time Spent with Patient: Total time spent is greater than 50% in coordination of care (as documented) at patient's floor/unit and/or counseling patient: Coding Level of Care Code 75133 Subseq Hosp Care Lvl 3 Diagnoses 2019 novel coronavirus-infected pneumonia (NCIP) U07.1; J12.82 Acute on chronic respiratory failure with hypoxia and hypercapnia J96.21; J96.22 Rapid atrial fibrillation I48.91 Elevated INR (international normalized ratio) R79.1 (HFpEF) heart failure with preserved ejection fraction I50.30 CAD (coronary artery disease) I25.10
[2021-07-17] MEDS: ONDANSETRON INJ 2 MG/ML 2 ML VIAL IV PRN ×2 (12:47→19:41)
[2021-07-17] MEDS: POLYETHYLENE (MIRALAX) 17 GM PACK PO SCH (12:47)
[2021-07-17] MEDS: WARFARIN SOD 6 MG TAB PO SCH (16:42)
[2021-07-17 18:05] LABS: SARS CoV2 RNA(COVID-19) InHosp POSITIVE (Negative)
[2021-07-17] MEDS ORDERED: POLYETHYLENE (MIRALAX) 17 GM PACK PO ONE (20:01)
[2021-07-17] MEDS ORDERED: MAGNESIUM HYDROXIDE SUSP 30 ML UDC PO ONE (20:12)
[2021-07-17] MEDS: REMDESIVIR 100 MG in SODIUM CHLORIDE 0.9% 230 ML IV SCH (20:20)
[2021-07-17] MEDS: SODIUM CHLORIDE 0.9% 10ML FLUSH IV SCH (21:55)
[2021-07-18] MEDS: PANTOprazole 40 MG TAB PO SCH ×2 (07:57→20:58)
[2021-07-18] MEDS: TAMSULOSIN HCL 0.4 MG CAP PO SCH (07:58)
[2021-07-18] MEDS: dilTIAZem ER 120 MG CAPCR PO SCH (07:58)
[2021-07-18] MEDS: METOPROLOL TARTRATE 100 MG TAB PO SCH ×2 (07:58→20:57)
[2021-07-18] MEDS: POTASSIUM CHLORIDE CRTAB 20 MEQ TABCR PO SCH (07:58)
[2021-07-18] MEDS: POLYETHYLENE (MIRALAX) 17 GM PACK PO SCH (07:59)
[2021-07-18] MEDS: FUROSEMIDE 40 MG/4 ML VIAL IV SCH (08:25)
[2021-07-18] MEDS: dexAMETHasone 6 MG in SYRINGE 0 ML IV SCH (08:25)
[2021-07-18] MEDS: 4mg Daily x 14 days (eGFR >60 mL/min/1.73m2) PO SCH (08:26)
[2021-07-18 08:53] LABS: INR 1.5 (0.9-1.1); Prothrombin Time 14.3 Seconds (9.0-12.0)
[2021-07-18 09:18] LABS: BUN Creatinine Ratio 44.2 (10-20); Calcium 8.6 mg/dl (8.5-10.1); Creatinine Clr Calc Pharmacy 65.4 ml/min; Est GFR (African American) 76.1 ml/min; Est GFR (Non-African American) 65.7 ml/min; Potassium 5.6 mmol/L (3.5-5.1)
--- NOTE | 2021-07-18 09:42 | Hospitalist Progress Note ---
Date of Service July 18, 2021 Assessment & Plan (1) 2019 novel coronavirus-infected pneumonia (NCIP): Plan: initially on BIPAP 16/8 and 50% FiO2, accessory muscle use able to take off BIPAP during the day, stable on 4L, O2 goal is 88%, d/w RN continue remdesevir/ baricitinib/dexamethasone, day 5 of treatment Lasix 40mg IV daily to keep lungs dry, Cr is stable can remove pearson today, change Lasix to PO move to medical floor today if there is a bed available (2) Acute on chronic respiratory failure with hypoxia and hypercapnia: Plan: at baseline he wears 2.5L during the day and CPAP HS initially he was BIPAP dependent, but stable on 4L today, normal respiratory effort surprisingly he is getting better wean oxygen as tolerated, saturation goal is 88% wear CPAP/BIPAP HS he told the RN he does not have CPAP at home, off for 3 weeks now, need to arrange this through (3) Hyperkalemia: Plan: 5.6 today, was 4.1 yesterday, might be some hemolysis? repeat at noon he got Lasix 40mg IV this morning stop potassium supplementation (4) Rapid atrial fibrillation: Plan: resolved on 07/16 after adding back metoprolol and digoxin to his Cardizem HR 80's today resume Cardizem 120mg daily resume Lopressor 100mg PO BID resume Digoxin 125mcg PO daily resume Coumadin at 6mg PO daily, INR is 1.5 today (5) Elevated INR (international normalized ratio): Plan: INR was 9.5 on 07/15, now down to 1.5 continue Coumadin 6mg daily, daily INR (6) (HFpEF) heart failure with preserved ejection fraction: Plan: BNP elevated, continue Lasix, change to PO tomorrow morning pull pearson catheter (7) CAD (coronary artery disease): Plan: resume all home medications (8) Constipation: Plan: had a small smear today continue Miralax daily increase mobility, OOB to chair, therapy Plan: get PT/OT assesments if K is back to normal we can move to medical pull pearson keep saturations at 88% prognosis still guarded but a little better today Admission and Anticipated Discharge Date Admission Date: July 14, 2021 Physical Exam Physical Exam: General: well developed, well nourished, obese elderly male, ill appearing, mild distress Neck: supple, trachea midline, normal thyroid Lungs: diminished breath sounds bilaterally, normal respiratory effort, slight accessory muscle use Heart: irregular irregular S1 and S2, tachycardic, no murmur, peripheral pulses normal, capillary refill normal, + edema bilateral legs Abdomen: soft, NT, slightly distended, + BS, no hepatomegaly, normal to percussion Extremities: normal in appearance, no cyanosis, no petechiae, strength is diminished Neuro: awake, cooperative, moves all extremities, no focal motor deficits, CN II-XII intact Skin: warm, dry, no rash, normal turgor Psych: Awake, alert oriented x 3, depressed affect Results & Data Results & Data ([facility]) Vital Signs (Past 12 Hours) Vital Signs Temp Pulse Pulse Resp BP Pulse Ox 07/18/21 07:10 35.9 C L 83 20 123/59 L 90 07/18/21 06:45 90 07/18/21 06:39 90 07/18/21 03:53 36.4 C L 53 L 18 124/62 95 07/18/21 03:07 57 L 13 94 07/17/21 23:47 57 L 19 97 07/17/21 23:43 36.4 C L 60 18 121/59 L 90 07/17/21 22:19 75 Laboratory Results Laboratory Results - last 24 hr 07/14/21 07/17/21 07/18/21 12:47 08:54 08:17 PT 14.3 H INR 1.5 H Sodium 138 Potassium 4.1 Chloride 101 Carbon Dioxide 32 Anion Gap 6.0 BUN 49 H Creatinine 1.14 Est Cr Clr Drug Dosing 61.8 Est GFR ( Amer) 70.5 Est GFR (Non-Af Amer) 60.8 BUN/Creatinine Ratio 43.3 H Glucose 145 H Calcium 8.5 C-Reactive Protein 7.54 H SARS-CoV-2 (PCR) POSITIVE A* 07/18/21 08:17 PT INR Sodium 140 Potassium 5.6 H D Chloride 102 Carbon Dioxide 36 H Anion Gap 2.0 L BUN 47 H Creatinine 1.07 Est Cr Clr Drug Dosing 65.4 Est GFR ( Amer) 76.1 Est GFR (Non-Af Amer) 65.7 BUN/Creatinine Ratio 44.2 H Glucose 131 H Calcium 8.6 C-Reactive Protein SARS-CoV-2 (PCR) Medications Administered Current Inpatient Medications Baricitinib (4mg Daily X 14 Days (Egfr >60 Ml/Min/1.73m2)) 4 mg PO DAILY [facility]; Protocol Stop: 07/27/21 09:01 Last Admin: 07/18/21 08:26 Dose: 4 mg Documented by: Digoxin (Digoxin 0.125 Mg Tab) 0.125 mg PO DAILY@1600 [facility] Stop: 08/17/21 15:59 Diltiazem HCl (Diltiazem Er 120 Mg Capcr) 120 mg PO QAM [facility] Stop: 08/16/21 08:59 Last Admin: 07/18/21 07:58 Dose: 120 mg Documented by: Furosemide (Furosemide 40 Mg/4 Ml Vial) 40 mg IV DAILY [facility] Stop: 08/14/21 08:59 Last Admin: 07/18/21 08:25 Dose: 40 mg Documented by: Remdesivir 100 mg/ Sodium (Chloride) 250 mls @ 250 mls/hr IV Q24H [facility]; Protocol Stop: 07/18/21 20:59 Last Infusion: 07/17/21 21:55 Dose: Infused Documented by: Dexamethasone 6 mg/ Syringe 1.5 mls @ 1 mls/min IV QAM [facility] Stop: 08/14/21 09:44 Last Admin: 07/18/21 08:25 Dose: 1 mls/min Documented by: Metoprolol Tartrate (Metoprolol Tartrate 100 Mg Tab) 100 mg PO BID [facility] Stop: 08/15/21 20:59 Last Admin: 07/18/21 07:58 Dose: 100 mg Documented by: Ondansetron HCl (Ondansetron Inj 2 Mg/Ml 2 Ml Vial) 4 mg IV Q4H PRN PRN Reason: Nausea Stop: 08/16/21 12:35 Last Admin: 07/17/21 19:41 Dose: 4 mg Documented by: Pantoprazole Sodium (Pantoprazole 40 Mg Tab) 40 mg PO BID [facility] Stop: 08/15/21 20:59 Last Admin: 07/18/21 07:57 Dose: 40 mg Documented by: Polyethylene Glycol (Polyethylene (Miralax) 17 Gm Pack) 17 gm PO DAILY [facility] Stop: 08/16/21 12:44 Last Admin: 07/18/21 07:59 Dose: 17 gm Documented by: Potassium Chloride (Potassium Chloride Crtab 20 Meq Tabcr) 20 meq PO BID [facility] Stop: 08/15/21 20:59 Last Admin: 07/18/21 07:58 Dose: 20 meq Documented by: Sodium Chloride (Sodium Chloride 0.9% 10ml Flush) 30 ml IV DAILY@2000 [facility] Stop: 07/18/21 20:01 Last Admin: 07/17/21 21:55 Dose: 30 ml Documented by: Tamsulosin HCl (Tamsulosin Hcl 0.4 Mg Cap) 0.4 mg PO DAILY [facility] Stop: 08/16/21 08:59 Last Admin: 07/18/21 07:58 Dose: 0.4 mg Documented by: Warfarin Sodium (Warfarin Sod 6 Mg Tab) 6 mg PO DAILY@1600 [facility] Stop: 08/15/21 15:59 Last Admin: 07/17/21 16:42 Dose: 6 mg Documented by: PG Care Time/CCT Total # of Minutes Spent Total Time Spent with Patient: Total time spent is greater than 50% in coordination of care (as documented) at patient's floor/unit and/or counseling patient: Coding Level of Care Code 38038 Subseq Hosp Care Lvl 3 Diagnoses 2019 novel coronavirus-infected pneumonia (NCIP) U07.1; J12.82 Acute on chronic respiratory failure with hypoxia and hypercapnia J96.21; J96.22 Rapid atrial fibrillation I48.91 Elevated INR (international normalized ratio) R79.1 (HFpEF) heart failure with preserved ejection fraction I50.30 CAD (coronary artery disease) I25.10 Hyperkalemia E87.5 Constipation K59.00
[2021-07-18 13:55] LABS: BUN Creatinine Ratio 46.6 (10-20); Calcium 8.7 mg/dl (8.5-10.1); Creatinine Clr Calc Pharmacy 66.6 ml/min; Est GFR (African American) 77.9 ml/min; Est GFR (Non-African American) 67.2 ml/min; Potassium 4.7 mmol/L (3.5-5.1)
[2021-07-18] MEDS: DIGOXIN 0.125 MG TAB PO SCH (16:35)
[2021-07-18] MEDS: WARFARIN SOD 6 MG TAB PO SCH (16:35)
[2021-07-18] MEDS: REMDESIVIR 100 MG in SODIUM CHLORIDE 0.9% 230 ML IV SCH (20:58)
[2021-07-18] MEDS: SODIUM CHLORIDE 0.9% 10ML FLUSH IV SCH (23:54)
[2021-07-19 07:25] LABS: INR 1.8 (0.9-1.1); Prothrombin Time 17.2 Seconds (9.0-12.0)
[2021-07-19 08:30] LABS: BUN Creatinine Ratio 50.4 (10-20); Calcium 8.3 mg/dl (8.5-10.1); Creatinine Clr Calc Pharmacy 69.9 ml/min; Est GFR (African American) 82.6 ml/min; Est GFR (Non-African American) 71.3 ml/min
[2021-07-19] MEDS: dilTIAZem ER 120 MG CAPCR PO SCH (08:40)
[2021-07-19] MEDS: POLYETHYLENE (MIRALAX) 17 GM PACK PO SCH (08:40)
[2021-07-19] MEDS: METOPROLOL TARTRATE 100 MG TAB PO SCH ×2 (08:40→21:23)
[2021-07-19] MEDS: TAMSULOSIN HCL 0.4 MG CAP PO SCH (08:41)
[2021-07-19] MEDS: PANTOprazole 40 MG TAB PO SCH ×2 (08:41→21:23)
[2021-07-19] MEDS: dexAMETHasone 6 MG in SYRINGE 0 ML IV SCH (08:41)
[2021-07-19] MEDS: FUROSEMIDE 80 MG TAB PO SCH (08:42)
[2021-07-19] MEDS: 4mg Daily x 14 days (eGFR >60 mL/min/1.73m2) PO SCH (08:54)
--- NOTE | 2021-07-19 09:37 | Hospitalist Progress Note ---
Date of Service July 19, 2021 Assessment & Plan (1) 2019 novel coronavirus-infected pneumonia (NCIP): Plan: initially on BIPAP 16/8 and 50% FiO2, accessory muscle use able to take off BIPAP during the day, still stable on 4L, O2 goal is 88%, d/w RN continue baricitinib/dexamethasone, day 6 of treatment completed course of Remdesivir Lasix 40mg IV daily to keep lungs dry, Cr is stable can remove pearson today, change Lasix to PO move to medical floor today if there is a bed available (2) Acute on chronic respiratory failure with hypoxia and hypercapnia: Plan: at baseline he wears 2.5L during the day and CPAP HS initially he was BIPAP dependent, but stable on 4L the past two days, normal respiratory effort surprisingly he is getting better wean oxygen as tolerated, saturation goal is 88% wear CPAP/BIPAP HS he told the RN he does not have CPAP at home, off for 3 weeks now, need to arrange this through (3) Hyperkalemia: Plan: repeat was 4.7 yesterday, today is 5.0 he is off replacement Lasix 80mg PO this morning (4) Rapid atrial fibrillation: Plan: resolved on 07/16 after adding back metoprolol and digoxin to his Cardizem HR 60's today continue Cardizem 120mg daily, Lopressor 100mg PO BID, Digoxin 125mcg PO daily continue Coumadin at 6mg PO daily, INR is 1.8 today move to medical floor when bed available, transfer orders in (5) Elevated INR (international normalized ratio): Plan: INR was 9.5 on 07/15, now down to 1.8 continue Coumadin 6mg daily, daily INR (6) (HFpEF) heart failure with preserved ejection fraction: Plan: BNP elevated, continue Lasix 80mg daily pulled pearson catheter (7) CAD (coronary artery disease): Plan: resume all home medications (8) Constipation: Plan: had a small smear 07/18, last good BM was 10 days ago continue Miralax daily give a dose of Lactulose today increase mobility, OOB to chair, therapy Plan: get PT/OT assesments keep saturations at 88% work to get home by Saturday, can go home on 4L if he is still at that point might need rehab if he is too weak to go home Admission and Anticipated Discharge Date Admission Date: July 14, 2021 Subjective main complaint is that he cannot poop, it's been 10 days since he had a good BM no luck with Miralax, will give him a dose of Lactulose his abdomen is soft but dull to percussion, mild nausea no dyspnea, he has a mild cough with rattle in throat, tolerating CPAP at home Review of Systems Review of Systems: All systems reviewed & are unremarkable except as noted in Subjective Respiratory: + cough and + dyspnea on exertion Gastrointestinal: + nausea and + constipation; no abdominal pain and no vomiting Physical Exam Physical Exam: General: well developed, well nourished, obese elderly male, ill appearing, mild distress Neck: supple, trachea midline, normal thyroid Lungs: diminished breath sounds bilaterally, normal respiratory effort, slight accessory muscle use Heart: irregular irregular S1 and S2, tachycardic, no murmur, peripheral pulses normal, capillary refill normal, + edema bilateral legs Abdomen: soft, NT, slightly distended, dull to percussion, + BS Extremities: normal in appearance, no cyanosis, no petechiae, strength is diminished Neuro: awake, cooperative, moves all extremities, no focal motor deficits, CN II-XII intact Skin: warm, dry, no rash, normal turgor Psych: Awake, alert oriented x 3, depressed affect Results & Data Results & Data ([facility]) Vital Signs (Past 12 Hours) Vital Signs Temp Pulse Pulse Resp BP Pulse Ox 07/19/21 07:27 36.3 C L 70 19 122/69 96 07/19/21 03:21 36.4 C L 57 L 20 119/85 98 07/19/21 02:47 50 L 24 94 07/18/21 23:05 55 L 15 94 07/18/21 22:19 38 L 07/18/21 22:00 36.7 C 42 L 20 120/78 94 Laboratory Results Laboratory Results - last 24 hr 07/18/21 07/19/21 07/19/21 13:04 06:37 06:37 PT 17.2 H INR 1.8 H Sodium 137 140 Potassium 4.7 D 5.0 Chloride 99 102 Carbon Dioxide 34 H 34 H Anion Gap 4.0 4.0 BUN 49 H 50 H Creatinine 1.05 1.00 Est Cr Clr Drug Dosing 66.6 69.9 Est GFR ( Amer) 77.9 82.6 Est GFR (Non-Af Amer) 67.2 71.3 BUN/Creatinine Ratio 46.6 H 50.4 H Glucose 150 H 142 H Calcium 8.7 8.3 L Medications Administered Current Inpatient Medications Baricitinib (4mg Daily X 14 Days (Egfr >60 Ml/Min/1.73m2)) 4 mg PO DAILY [facility]; Protocol Stop: 07/27/21 09:01 Last Admin: 07/19/21 08:54 Dose: 4 mg Documented by: Digoxin (Digoxin 0.125 Mg Tab) 0.125 mg PO DAILY@1600 [facility] Stop: 08/17/21 15:59 Last Admin: 07/18/21 16:35 Dose: 0.125 mg Documented by: Diltiazem HCl (Diltiazem Er 120 Mg Capcr) [facility] Stop: 08/16/21 08:59 Last Admin: 07/19/21 08:40 Dose: 120 mg Documented by: Furosemide (Furosemide 80 Mg Tab) [facility] Stop: 08/18/21 08:59 Last Admin: 07/19/21 08:42 Dose: 80 mg Documented by: Dexamethasone 6 mg/ Syringe 1.5 mls @ 1 mls/min [facility] Stop: 08/14/21 09:44 Last Admin: 07/19/21 08:41 Dose: 1 mls/min Documented by: Metoprolol Tartrate (Metoprolol Tartrate 100 Mg Tab) 100 mg PO BID [facility] Stop: 08/15/21 20:59 Last Admin: 07/19/21 08:40 Dose: 100 mg Documented by: Ondansetron HCl (Ondansetron Inj 2 Mg/Ml 2 Ml Vial) 4 mg IV Q4H PRN PRN Reason: Nausea Stop: 08/16/21 12:35 Last Admin: 07/17/21 19:41 Dose: 4 mg Documented by: Pantoprazole Sodium (Pantoprazole 40 Mg Tab) 40 mg PO BID [facility] Stop: 08/15/21 20:59 Last Admin: 07/19/21 08:41 Dose: 40 mg Documented by: Polyethylene Glycol (Polyethylene (Miralax) 17 Gm Pack) 17 gm PO DAILY [facility] Stop: 08/16/21 12:44 Last Admin: 07/19/21 08:40 Dose: 17 gm Documented by: Tamsulosin HCl (Tamsulosin Hcl 0.4 Mg Cap) 0.4 mg PO DAILY [facility] Stop: 08/16/21 08:59 Last Admin: 07/19/21 08:41 Dose: 0.4 mg Documented by: Warfarin Sodium (Warfarin Sod 6 Mg Tab) 6 mg PO DAILY@1600 [facility] Stop: 08/15/21 15:59 Last Admin: 07/18/21 16:35 Dose: 6 mg Documented by: PG Care Time/CCT Total # of Minutes Spent Total Time Spent with Patient: Total time spent is greater than 50% in coordination of care (as documented) at patient's floor/unit and/or counseling patient: Coding Level of Care Code 24320 Subseq Hosp Care Lvl 3 Diagnoses 2019 novel coronavirus-infected pneumonia (NCIP) U07.1; J12.82 Acute on chronic respiratory failure with hypoxia and hypercapnia J96.21; J96.22 Hyperkalemia E87.5 Rapid atrial fibrillation I48.91 Elevated INR (international normalized ratio) R79.1 (HFpEF) heart failure with preserved ejection fraction I50.30 CAD (coronary artery disease) I25.10 Constipation K59.00
[2021-07-19] MEDS ORDERED: LACTULOSE SYRUP 20 GM/30 ML UDC PO ONE (09:39)
[2021-07-19] MEDS: WARFARIN SOD 6 MG TAB PO SCH (15:30)
[2021-07-19] MEDS: DIGOXIN 0.125 MG TAB PO SCH (15:31)
[2021-07-20 06:43] LABS: INR 1.9 (0.9-1.1); Prothrombin Time 18.6 Seconds (9.0-12.0)
[2021-07-20] MEDS: 4mg Daily x 14 days (eGFR >60 mL/min/1.73m2) PO SCH (08:15)
[2021-07-20] MEDS: dexAMETHasone 6 MG in SYRINGE 0 ML IV SCH (08:15)
[2021-07-20] MEDS: TAMSULOSIN HCL 0.4 MG CAP PO SCH (08:16)
[2021-07-20] MEDS: METOPROLOL TARTRATE 100 MG TAB PO SCH ×2 (08:16→21:09)
[2021-07-20] MEDS: dilTIAZem ER 120 MG CAPCR PO SCH (08:16)
[2021-07-20] MEDS: PANTOprazole 40 MG TAB PO SCH ×2 (08:16→22:39)
[2021-07-20] MEDS: POLYETHYLENE (MIRALAX) 17 GM PACK PO SCH (08:16)
[2021-07-20] MEDS: FUROSEMIDE 80 MG TAB PO SCH (08:16)
--- NOTE | 2021-07-20 12:18 | Hospitalist Progress Note ---
Date of Service July 20, 2021 Assessment & Plan (1) 2019 novel coronavirus-infected pneumonia (NCIP): Plan: initially on BIPAP / and 50% FiO2, accessory muscle use able to take off BIPAP during the day, down to his baseline 2.5L, O2 goal is 88% continue baricitinib/dexamethasone, day 7 of treatment completed course of Remdesivir changed Lasix to PO on 07/19, pearson out move to medical floor today if there is a bed available (2) Acute on chronic respiratory failure with hypoxia and hypercapnia: Plan: at baseline he wears 2.5L during the day and CPAP HS initially he was BIPAP dependent, but stable on 2.5L today, normal respiratory effort surprisingly he is getting better wear CPAP/BIPAP HS he told the RN he does not have CPAP at home, off for 3 weeks now, need to arrange this through (3) Hyperkalemia: Plan: repeat tomorrow (4) Rapid atrial fibrillation: Plan: resolved on 07/16 after adding back metoprolol and digoxin to his Cardizem HR 60's today continue Cardizem 120mg daily, Lopressor 100mg PO BID, Digoxin 125mcg PO daily continue Coumadin at 6mg PO daily, INR is 1.9 today move to medical floor when bed available, transfer orders in (5) Elevated INR (international normalized ratio): Plan: INR was 9.5 on 07/15, now down to 1.9 continue Coumadin 6mg daily, daily INR (6) (HFpEF) heart failure with preserved ejection fraction: Plan: BNP elevated, continue Lasix 80mg daily pulled pearson catheter (7) CAD (coronary artery disease): Plan: resume all home medications (8) Constipation: Plan: had a small smear 07/18, two small BM on 07/19 per RN continue Miralax daily increase mobility, OOB to chair, therapy Plan: get PT/OT assesments keep saturations at 88% work to get home by Saturday if he is strong enough might need rehab if he is too weak to go home Admission and Anticipated Discharge Date Admission Date: July 14, 2021 Subjective patient says he does not feel very well, wants to move his bowels RN told me he had two small BM yesterday, apparently he needs to move them more no nausea or vomiting but he has a decreased appetite stable on 2.5L which is his baseline oxygen requirement, stressed that goal is 88% with his COPD no fever/chills, no chest pain, + weakness needs therapy he does not want to go to [facility] again Review of Systems Review of Systems: All systems reviewed & are unremarkable except as noted in Subjective Gastrointestinal: + bloating, + early satiety and + constipation (patient claims this, but he moved bowels twice yesterday) Physical Exam Physical Exam: General: well developed, well nourished, obese elderly male, ill appearing, mild distress Neck: supple, trachea midline, normal thyroid Lungs: diminished breath sounds bilaterally, normal respiratory effort, slight accessory muscle use Heart: irregular irregular S1 and S2, tachycardic, no murmur, peripheral pulses normal, capillary refill normal, slight edema bilaterally Abdomen: soft, NT, slightly distended, dull to percussion, + BS Extremities: normal in appearance, no cyanosis, no petechiae, strength is diminished Neuro: awake, cooperative, moves all extremities, no focal motor deficits, CN II-XII intact Skin: warm, dry, no rash, normal turgor Psych: Awake, alert oriented x 3, depressed affect Results & Data Results & Data ([facility]) Vital Signs (Past 12 Hours) Vital Signs Temp Pulse Pulse Resp BP Pulse Ox 07/20/21 11:36 36.4 C L 66 18 133/68 96 07/20/21 07:26 36.5 C 70 20 132/50 L 95 07/20/21 07:00 60 07/20/21 03:18 36.6 C 87 16 126/52 L 95 07/20/21 01:46 62 12 97 Laboratory Results Laboratory Results - last 24 hr 07/20/21 06:12 PT 18.6 H INR 1.9 H Medications Administered Current Inpatient Medications Baricitinib (4mg Daily X 14 Days (Egfr >60 Ml/Min/1.73m2)) 4 mg PO DAILY [facility]; Protocol Stop: 07/27/21 09:01 Last Admin: 07/20/21 08:15 Dose: 4 mg Documented by: Digoxin (Digoxin 0.125 Mg Tab) 0.125 mg PO DAILY@1600 [facility] Stop: 08/17/21 15:59 Last Admin: 07/19/21 15:31 Dose: 0.125 mg Documented by: Diltiazem HCl (Diltiazem Er 120 Mg Capcr) 120 mg PO QAM [facility] Stop: 08/16/21 08:59 Last Admin: 07/20/21 08:16 Dose: 120 mg Documented by: Furosemide (Furosemide 80 Mg Tab) 80 mg PO QAM [facility] Stop: 08/18/21 08:59 Last Admin: 07/20/21 08:16 Dose: 80 mg Documented by: Dexamethasone 6 mg/ Syringe 1.5 mls @ 1 mls/min IV QAM [facility] Stop: 08/14/21 09:44 Last Admin: 07/20/21 08:15 Dose: 1 mls/min Documented by: Metoprolol Tartrate (Metoprolol Tartrate 100 Mg Tab) 100 mg PO BID [facility] Stop: 08/15/21 20:59 Last Admin: 07/20/21 08:16 Dose: 100 mg Documented by: Ondansetron HCl (Ondansetron Inj 2 Mg/Ml 2 Ml Vial) 4 mg IV Q4H PRN PRN Reason: Nausea Stop: 08/16/21 12:35 Last Admin: 07/17/21 19:41 Dose: 4 mg Documented by: Pantoprazole Sodium (Pantoprazole 40 Mg Tab) 40 mg PO BID [facility] Stop: 08/15/21 20:59 Last Admin: 07/20/21 08:16 Dose: 40 mg Documented by: Polyethylene Glycol (Polyethylene (Miralax) 17 Gm Pack) 17 gm PO DAILY [facility] Stop: 08/16/21 12:44 Last Admin: 07/20/21 08:16 Dose: 17 gm Documented by: Tamsulosin HCl (Tamsulosin Hcl 0.4 Mg Cap) 0.4 mg PO DAILY [facility] Stop: 08/16/21 08:59 Last Admin: 07/20/21 08:16 Dose: 0.4 mg Documented by: Warfarin Sodium (Warfarin Sod 6 Mg Tab) 6 mg PO DAILY@1600 [facility] Stop: 08/15/21 15:59 Last Admin: 07/19/21 15:30 Dose: 6 mg Documented by: PG Care Time/CCT Total # of Minutes Spent Total Time Spent with Patient: Total time spent is greater than 50% in coordination of care (as documented) at patient's floor/unit and/or counseling patient: Coding Level of Care Code 95111 Subseq Hosp Care Lvl 2 Diagnoses 2019 novel coronavirus-infected pneumonia (NCIP) U07.1; J12.82 Acute on chronic respiratory failure with hypoxia and hypercapnia J96.21; J96.22 Hyperkalemia E87.5 Rapid atrial fibrillation I48.91 Elevated INR (international normalized ratio) R79.1 (HFpEF) heart failure with preserved ejection fraction I50.30 CAD (coronary artery disease) I25.10 Constipation K59.00
[2021-07-20] MEDS: WARFARIN SOD 6 MG TAB PO SCH (16:04)
[2021-07-20] MEDS: DIGOXIN 0.125 MG TAB PO SCH (16:04)
[2021-07-21 08:32] LABS: INR 2.4 (0.9-1.1); Prothrombin Time 22.6 Seconds (9.0-12.0)
[2021-07-21] MEDS: PANTOprazole 40 MG TAB PO SCH ×2 (08:39→20:14)
[2021-07-21] MEDS: METOPROLOL TARTRATE 100 MG TAB PO SCH ×2 (08:39→20:14)
[2021-07-21] MEDS: 4mg Daily x 14 days (eGFR >60 mL/min/1.73m2) PO SCH (08:39)
[2021-07-21] MEDS: POLYETHYLENE (MIRALAX) 17 GM PACK PO SCH (08:39)
[2021-07-21] MEDS: dilTIAZem ER 120 MG CAPCR PO SCH (08:39)
[2021-07-21] MEDS: TAMSULOSIN HCL 0.4 MG CAP PO SCH (08:39)
[2021-07-21] MEDS: FUROSEMIDE 80 MG TAB PO SCH (08:39)
[2021-07-21] MEDS: dexAMETHasone 6 MG in SYRINGE 0 ML IV SCH (08:39)
[2021-07-21] MEDS ORDERED: LACTULOSE SYRUP 30 GM/45 ML UDP PO STA (13:38)
[2021-07-21] MEDS ORDERED: SOD PHOSPHATE/SOD BIPHOSPHATE ENEMA 132 ML BTL PR STA ×2 (13:38→16:13)
--- NOTE | 2021-07-21 13:39 | Hospitalist Progress Note ---
Date of Service July 21, 2021 Assessment & Plan (1) 2019 novel coronavirus-infected pneumonia (NCIP): Plan: initially on BIPAP 16/8 and 50% FiO2, accessory muscle use able to take off BIPAP during the day, down to his baseline 2.5L, O2 goal is 88% continue baricitinib/dexamethasone, day 8 of treatment completed course of Remdesivir changed Lasix to PO on 07/19, pearson out move to medical floor today if there is a bed available (2) Acute on chronic respiratory failure with hypoxia and hypercapnia: Plan: at baseline he wears 2.5L during the day and CPAP HS initially he was BIPAP dependent, but stable on 2.5L past two days, normal respiratory effort surprisingly he is getting better wear CPAP/BIPAP HS he told the RN he does not have CPAP at home, off for 3 weeks now, need to arrange this through CM (3) Hyperkalemia: Plan: repeat tomorrow (4) Rapid atrial fibrillation: Plan: resolved on 07/16 after adding back metoprolol and digoxin to his Cardizem HR 60's today continue Cardizem 120mg daily, Lopressor 100mg PO BID, Digoxin 125mcg PO daily continue Coumadin but decrease to 5mg from 6mg daily, INR is 2.4 today move to medical floor when bed available, transfer orders in (5) Elevated INR (international normalized ratio): Plan: INR was 9.5 on 07/15, now down to 2.4 continue Coumadin 5mg daily, daily INR (6) (HFpEF) heart failure with preserved ejection fraction: Plan: BNP elevated, continue Lasix 80mg daily pulled pearson catheter (7) CAD (coronary artery disease): Plan: resume all home medications (8) Constipation: Plan: had a small smear 07/18, two small BM on 07/19 per RN continue Miralax daily, give a dose of Lactulose 30mg x 1 increase mobility, OOB to chair, therapy he was OOB to chair Plan: get PT/OT assesments keep saturations at 88% anticipate that he needs SNF, he does not want to hear that, CM is following Admission and Anticipated Discharge Date Admission Date: July 14, 2021 Subjective patient not very happy, needs to move his bowels, feels sick to his stomach, no pain breathing is stable on 2.5L, his baseline he won't participate in therapy, won't get out of bed he says his is at [facility] right now, will not be around to support him we discussed that he needs 24/7 care, likely SNF he says that he has no money to pay for SNF, he confirms he was on hospice at home but not sure he wants hospice Review of Systems Review of Systems: All systems reviewed & are unremarkable except as noted in Subjective Constitutional: + weakness Respiratory: + cough and + dyspnea Gastrointestinal: + constipation Physical Exam Physical Exam: General: well developed, well nourished, obese elderly male, ill appearing, mild distress Neck: supple, trachea midline, normal thyroid Lungs: diminished breath sounds bilaterally, normal respiratory effort, slight accessory muscle use Heart: irregular irregular S1 and S2, tachycardic, no murmur, peripheral pulses normal, capillary refill normal, slight edema bilaterally Abdomen: soft, NT, slightly distended, dull to percussion, + BS Extremities: normal in appearance, no cyanosis, no petechiae, strength is diminished Neuro: awake, cooperative, moves all extremities, no focal motor deficits, CN II-XII intact Skin: warm, dry, no rash, normal turgor Psych: Awake, alert oriented x 3, angry, irritable affect Results & Data Results & Data ([facility]) Vital Signs (Past 12 Hours) Vital Signs Temp Pulse Resp BP 07/21/21 07:16 36.6 C 68 17 136/68 Laboratory Results Laboratory Results - last 24 hr 07/21/21 07:01 PT 22.6 H INR 2.4 H Medications Administered Current Inpatient Medications Baricitinib (4mg Daily X 14 Days (Egfr >60 Ml/Min/1.73m2)) 4 mg PO DAILY [facility]; Protocol Stop: 07/27/21 09:01 Last Admin: 07/21/21 08:39 Dose: 4 mg Documented by: Digoxin (Digoxin 0.125 Mg Tab) 0.125 mg PO DAILY@1600 [facility] Stop: 08/17/21 15:59 Last Admin: 07/20/21 16:04 Dose: 0.125 mg Documented by: Diltiazem HCl (Diltiazem Er 120 Mg Capcr) 120 mg PO QAM [facility] Stop: 08/16/21 08:59 Last Admin: 07/21/21 08:39 Dose: 120 mg Documented by: Furosemide (Furosemide 80 Mg Tab) 80 mg PO QAM [facility] Stop: 08/18/21 08:59 Last Admin: 07/21/21 08:39 Dose: 80 mg Documented by: Dexamethasone 6 mg/ Syringe 1.5 mls @ 1 mls/min IV QAM [facility] Stop: 08/14/21 09:44 Last Admin: 07/21/21 08:39 Dose: 1 mls/min Documented by: Lactulose (Lactulose Syrup 30 Gm/45 Ml Udp) 30 gm PO NOW STA Stop: 07/21/21 13:39 Metoprolol Tartrate (Metoprolol Tartrate 100 Mg Tab) 100 mg PO BID [facility] Stop: 08/15/21 20:59 Last Admin: 07/21/21 08:39 Dose: 100 mg Documented by: Ondansetron HCl (Ondansetron Inj 2 Mg/Ml 2 Ml Vial) 4 mg IV Q4H PRN PRN Reason: Nausea Stop: 08/16/21 12:35 Last Admin: 07/17/21 19:41 Dose: 4 mg Documented by: Pantoprazole Sodium (Pantoprazole 40 Mg Tab) 40 mg PO BID [facility] Stop: 08/15/21 20:59 Last Admin: 07/21/21 08:39 Dose: 40 mg Documented by: Polyethylene Glycol (Polyethylene (Miralax) 17 Gm Pack) 17 gm PO DAILY [facility] Stop: 08/16/21 12:44 Last Admin: 07/21/21 08:39 Dose: 17 gm Documented by: Sodium Biphosphate/Sodium Phosphate (Sod Phosphate/Sod Biphosphate Enema 132 Ml Btl) 132 ml [facility] NOW STA Stop: 07/21/21 13:39 Tamsulosin HCl (Tamsulosin Hcl 0.4 Mg Cap) 0.4 mg PO DAILY [facility] Stop: 08/16/21 08:59 Last Admin: 07/21/21 08:39 Dose: 0.4 mg Documented by: Warfarin Sodium (Warfarin Sod 5 Mg Tab) 5 mg PO DAILY@1600 [facility] Stop: 08/20/21 15:59 PG Care Time/CCT Total # of Minutes Spent Total Time Spent with Patient: Total time spent is greater than 50% in coordination of care (as documented) at patient's floor/unit and/or counseling patient: Coding Level of Care Code 37267 Subseq Hosp Care Lvl 3 Diagnoses 2019 novel coronavirus-infected pneumonia (NCIP) U07.1; J12.82 Acute on chronic respiratory failure with hypoxia and hypercapnia J96.21; J96.22 Hyperkalemia E87.5 Rapid atrial fibrillation I48.91 Elevated INR (international normalized ratio) R79.1 (HFpEF) heart failure with preserved ejection fraction I50.30 CAD (coronary artery disease) I25.10 Constipation K59.00
[2021-07-21] MEDS: WARFARIN SOD 5 MG TAB PO SCH (16:20)
[2021-07-21] MEDS: DIGOXIN 0.125 MG TAB PO SCH (16:20)
[2021-07-22 07:21] LABS: INR 2.9 (0.9-1.1); Prothrombin Time 27.3 Seconds (9.0-12.0)
[2021-07-22] MEDS: dilTIAZem ER 120 MG CAPCR PO SCH (09:36)
[2021-07-22] MEDS: PANTOprazole 40 MG TAB PO SCH ×2 (09:37→20:33)
[2021-07-22] MEDS: METOPROLOL TARTRATE 100 MG TAB PO SCH ×2 (09:37→20:32)
[2021-07-22] MEDS: FUROSEMIDE 80 MG TAB PO SCH (09:37)
[2021-07-22] MEDS: POLYETHYLENE (MIRALAX) 17 GM PACK PO SCH (09:38)
[2021-07-22] MEDS: TAMSULOSIN HCL 0.4 MG CAP PO SCH (09:38)
[2021-07-22] MEDS: dexAMETHasone 6 MG in SYRINGE 0 ML IV SCH (09:41)
[2021-07-22] MEDS: 4mg Daily x 14 days (eGFR >60 mL/min/1.73m2) PO SCH (10:06)
[2021-07-22] MEDS: IPRATROPIUM BROMIDE NEB SOLN 0.02% 2.5 ML VIAL NEB SCH ×2 (14:44→22:18)
[2021-07-22] MEDS: LEVALBUTEROL HCL 0.63 MG/3 ML NEB NEB SCH ×2 (14:44→22:18)
--- NOTE | 2021-07-22 15:59 | Hospitalist Progress Note ---
Date of Service July 22, 2021 Assessment & Plan (1) 2019 novel coronavirus-infected pneumonia (NCIP): Plan: initially on BIPAP / and 50% FiO2, accessory muscle use Has since been taken off BIPAP during the day, down to his baseline 2.5L, O2 goal is 88% continue baricitinib/dexamethasone, day 9 of treatment completed course of Remdesivir changed Lasix to PO on 07/19, pearson out He does have some scant rhonchi. With his underlying history of COPD, will add nebulized treatments At this point, he is medically stable for discharge; however, disposition unclear given weakness (2) Acute on chronic respiratory failure with hypoxia and hypercapnia: Plan: at baseline he wears 2.5L during the day and CPAP HS initially he was BIPAP dependent, but stable on 2.5L past two days, normal respiratory effort surprisingly he is getting better wear CPAP/BIPAP HS he told the RN he does not have CPAP at home, off for 3 weeks now, need to arrange this through CM (3) Hyperkalemia: Plan: 5.6 on 07/18. Normalized without treatment (other than Lasix) 5.0 on . Follow-up labs in a.m. to trend (4) Rapid atrial fibrillation: Plan: resolved on 07/16 after adding back metoprolol and digoxin to his Cardizem HR 78 today continue Cardizem 120mg daily, Lopressor 100mg PO BID, Digoxin 125mcg PO daily continue Coumadin but decreased to 5mg from 6mg daily, INR is 2.9 today--> follow-up pro time in a.m. May need additional titration (5) Elevated INR (international normalized ratio): Plan: INR was 9.5 on 07/15, now down to 2.9 continue Coumadin 5mg daily, daily INR (6) (HFpEF) heart failure with preserved ejection fraction: Plan: BNP elevated, continue Lasix 80mg daily pulled paerson catheter (7) CAD (coronary artery disease): Plan: resume all home medications (8) Constipation: Plan: had a small smear 07/18, two small BM on 07/19 per RN continue Miralax daily, give a dose of Lactulose 30mg x 1 increase mobility, OOB to chair, therapy (9) Debility: Plan: Patient reports that he is unable to get out of bed Lives alone currently as his is at [facility] Lives in a mobile home but does have steps to get into the home Has been refusing to work with therapy Lengthy discussion with patient regarding disposition. He is adamant that he is going home but is agreeable to go to placement. I explained that he has to participate with therapy to help determine his disposition It is unsafe for him to be home alone at this point Plan: Patient encouraged to work with PT/OT. After lengthy discussion, he reports that he would be agreeable to "try" anticipate that he needs SNF, he does not want to hear that, CM is following Admission and Anticipated Discharge Date Admission Date: July 14, 2021 Subjective Patient seen on daily rounds today. Reports breathing is "terrible" but at his baseline. He is chronically on 2.5 L of supplemental oxygen. He denies fevers or chills. He seems to be back to his baseline from a respiratory standpoint but has been unwilling to work with therapy to determine if he is able to go home. Chest pain, shortness of breath, abdominal pain, nausea or vomiting. Nursing voices no significant complaints or concerns. Review of Systems Review of Systems: All systems reviewed and are unremarkable except as noted in HPI and below Denies fevers, chills, headache, nasal congestion, sore throat, cough, chest pain, shortness of breath (not outside of baseline) palpitations, orthopnea, P ND, abdominal pain, nausea, vomiting, diarrhea, constipation, dysuria, hematuria, frequency, back pain, joint pain or swelling, easy bruising or bleeding, skin lesions or rashes. Physical Exam Physical Exam: General: Resting comfortably in his/her hospital bed/bedside chair. NAD. HEENT: Head is AT/NC buccal mucosa is moist and pink Neck: No JVD. Negative hepatojugular reflex Cardiac: RRR without M/G/R Lungs: Mild conversational dyspnea (patient reports this is baseline). Does have scant rhonchi that mobilizes with coughing without wheezes or rails Abdomen: Normoactive X4. Soft and nontender in all quadrants. Extremities: No peripheral clubbing cyanosis or edema Neuro: A&O X4 cranial nerves II through XII are grossly intact no focal neuro deficits Skin: No obvious skin lesions or rashes Psych: Cantankerous but cooperative Results & Data Results & Data ([facility]) Vital Signs (Past 12 Hours) Vital Signs Pulse Resp BP Pulse Ox 07/22/21 14:45 78 18 94 07/22/21 08:44 61 16 135/67 91 PG Care Time/CCT Total # of Minutes Spent Total Time Spent with Patient: Total time spent is greater than 50% in coordination of care (as documented) at patient's floor/unit and/or counseling patient: Coding Level of Care Code 65527 Subseq Hosp Care Lvl 2 Diagnoses 2019 novel coronavirus-infected pneumonia (NCIP) U07.1; J12.82 Acute on chronic respiratory failure with hypoxia and hypercapnia J96.21; J96.22 Hyperkalemia E87.5 Rapid atrial fibrillation I48.91 Elevated INR (international normalized ratio) R79.1 (HFpEF) heart failure with preserved ejection fraction I50.30 CAD (coronary artery disease) I25.10 Constipation K59.00 Debility R53.81
[2021-07-22] MEDS: DIGOXIN 0.125 MG TAB PO SCH (19:13)
[2021-07-22] MEDS: WARFARIN SOD 5 MG TAB PO SCH (19:14)
[2021-07-23 07:26] LABS: Hematocrit (blood only) 37.7 % (42-52); Mean Corpuscular Hemoglobin 31.3 pg (25-34); Mean Corpuscular Hgb Conc 31.8 g/dL (32-36); Mean Corpuscular Volume 98.4 fL (80-100); Mean Platelet Volume 10.6 fL (7.4-10.4); Platelet Count 718 K/uL (130-400); RDW Coefficient of Variation 14.4 % (11.5-14.5); RDW Standard Deviation 51.7 fL (36.4-46.3); Red Blood Count 3.83 M/uL (4.7-6.1); White Blood Count 11.36 K/uL (4.8-10.8)
[2021-07-23 08:01] LABS: BUN Creatinine Ratio 58.2 (10-20); Calcium 8.6 mg/dl (8.5-10.1); Creatinine Clr Calc Pharmacy 76.2 ml/min; Est GFR (African American) 91.4 ml/min; Est GFR (Non-African American) 78.8 ml/min; Magnesium 2.3 mg/dl (1.8-2.4); Potassium 3.7 mmol/L (3.5-5.1)
[2021-07-23 08:04] LABS: Albumin Globulin Ratio 0.7 (0.9-2); Bilirubin,Total 0.5 mg/dl (0.2-1)
[2021-07-23 08:19] LABS: INR 3.4 (0.9-1.1); Prothrombin Time 30.9 Seconds (9.0-12.0)
[2021-07-23] MEDS: LEVALBUTEROL HCL 0.63 MG/3 ML NEB NEB SCH ×3 (08:22→21:10)
[2021-07-23] MEDS: IPRATROPIUM BROMIDE NEB SOLN 0.02% 2.5 ML VIAL NEB SCH ×3 (08:23→21:10)
[2021-07-23] MEDS: POLYETHYLENE (MIRALAX) 17 GM PACK PO SCH (10:12)
[2021-07-23] MEDS: dilTIAZem ER 120 MG CAPCR PO SCH (10:13)
[2021-07-23] MEDS: dexAMETHasone 6 MG in SYRINGE 0 ML IV SCH (10:13)
[2021-07-23] MEDS: FUROSEMIDE 80 MG TAB PO SCH (10:14)
[2021-07-23] MEDS: METOPROLOL TARTRATE 100 MG TAB PO SCH ×2 (10:15→19:56)
[2021-07-23] MEDS: PANTOprazole 40 MG TAB PO SCH ×2 (10:15→19:57)
[2021-07-23] MEDS: TAMSULOSIN HCL 0.4 MG CAP PO SCH (10:16)
[2021-07-23] MEDS: 4mg Daily x 14 days (eGFR >60 mL/min/1.73m2) PO SCH (10:32)
[2021-07-23] MEDS ORDERED: BENZONATATE 100 MG CAPSULE PO PRN (10:55)
--- NOTE | 2021-07-23 11:23 | Hospitalist Progress Note ---
Date of Service July 23, 2021 Assessment & Plan (1) 2019 novel coronavirus-infected pneumonia (NCIP): Plan: initially on BIPAP / and 50% FiO2, accessory muscle use Has since been taken off BIPAP during the day, down to his baseline 2.5L, O2 goal is 88% completed 10 days of baricitinib/dexamethasone (technically could receive additional 4 days of baricitinib but patient is no longer needing to remain in the hospital from a medical standpoint. It is now a safety/logistic issue) completed course of Remdesivir IV lasix given upfront--changed Lasix to PO (which he does take chronically). on 07/19, pearson out He does have some scant rhonchi. With his underlying history of COPD-- now on neb Tx's and able to mobilize secretion At this point, he is medically stable for discharge; however, disposition unclear given weakness-- see below (2) Acute on chronic respiratory failure with hypoxia and hypercapnia: Plan: at baseline he wears 2.5L during the day and CPAP HS initially he was BIPAP dependent, but stable on 2.5L xdays, normal respiratory effort surprisingly recovered from Covid standpoint wear CPAP/BIPAP HS he told the RN he does not have CPAP at home, off for 3 weeks now, need to arrange this through CM (3) Hyperkalemia: Plan: 5.6 on 07/18. Normalized with Lasix 3.7 today occasionally would follow as no supplementation on board and taking lasix 80mg daily (4) Rapid atrial fibrillation: Plan: resolved on 07/16 after adding back metoprolol and digoxin to his Cardizem HR 78 today continue Cardizem 120mg daily, Lopressor 100mg PO BID, Digoxin 125mcg PO daily has been back on Coumadin but supratheraeptuc today (07/23) at 3.4. ? secondary to baricitinib on board. Hold Coumadin today with follow-up INR in a.m.-> May need additional titration in coumadin (5) Elevated INR (international normalized ratio): Plan: INR was 9.5 on 07/15, Once INR down, placed back on Coumadin but home dose changed from 6 mg to 5 mg. With 5 mg daily, INR became supratherapeutic again Again, uncertain if baricitinib may be contributing to this Hold Coumadin today (07/23) with follow-up INR in a.m. May need to consider retitration of Coumadin to lower dose (6) (HFpEF) heart failure with preserved ejection fraction: Plan: BNP elevated, continue Lasix 80mg daily pulled pearson catheter (7) CAD (coronary artery disease): Plan: No evidence of ACS On metoprolol No aspirin on board but at his age, would not feel comfortable him being on both aspirin and Coumadin (8) Constipation: Plan: had a small smear 07/18, two small BM on 07/19 per RN continue Miralax daily, give a dose of Lactulose 30mg x 1 increase mobility, OOB to chair, therapy encouraged but patient refuses Reports is moving his bowels (9) Debility: Plan: Patient reports that he is unable to get out of bed Lives alone currently as his is at [facility] Lives in a mobile home but does have steps to get into the home Has been refusing to work with therapy Lengthy discussion with patient regarding disposition. He is adamant that he is going home but is agreeable to go to placement. I explained that he has to participate with therapy to help determine his disposition It is unsafe for him to be home alone at this point Again, he refuses to work with therapy to determine his needs but also admits that he cannot be independent Continues to say that he is going home despite the realization that he would not be able to get up the steps and into his home Case management on board. [facility] to get involved Saturday Case management has apparently spoken to family members for issues from the past, are unwilling to help provide additional support at this time Admission and Anticipated Discharge Date Admission Date: July 14, 2021 Subjective Patient seen on daily rounds today. Denies fevers, chills, chest pain, shortness of breath, abdominal pain, nausea or vomiting. Still continues to refuse to get out of bed to assess his physical strength. Therapy has been attempting this for days but he refuses to try. He reports that he "cannot get out of bed" but also is upset that he remains in the hospital. From a medical standpoint, he has been ready for discharge but he lives with a who is currently at [facility] for rehab. He has steps to get into the house and would be alone. When asked how he would get into the home and care for himself, he says "I would kick the damn door down". When asked what would happen if he could not get up the steps to kick the door down he says "then I would just lay there and . I am sick of you sounds of bitches keeping me here". Nursing requesting antitussive medication Review of Systems Review of Systems: All systems reviewed and are unremarkable except as noted in HPI and below Denies fevers, chills, headache, nasal congestion, sore throat, cough, chest pain, shortness of breath, palpitations, orthopnea, PND, abdominal pain, nausea, vomiting, diarrhea, constipation, dysuria, hematuria, frequency, back pain, joint pain or swelling, easy bruising or bleeding, skin lesions or rashes. Physical Exam Physical Exam: General: Resting comfortably in his hospital bed. NAD. HEENT: Head is AT/NC buccal mucosa is moist and pink Neck: No JVD. Negative hepatojugular reflex Cardiac: Irregular rhythm but controlled rate Lungs: Speaking full sentences on supplemental oxygen. Normal respiratory effort. Scattered rhonchi that clears with coughing Abdomen: Normoactive X4. Soft and nontender in all quadrants. Extremities: No peripheral clubbing cyanosis or edema Neuro: A&O X4 cranial nerves II through XII are grossly intact no focal neuro deficits Skin: No obvious skin lesions or rashes Psych: Appropriate affect pleasant and cooperative Results & Data Results & Data ([facility]) Vital Signs (Past 12 Hours) Vital Signs Temp Pulse Pulse Resp BP Pulse Ox 07/23/21 10:10 93 H 144/73 H 97 07/23/21 08:24 90 22 93 07/23/21 07:56 36.4 C L 90 18 118/57 L 93 07/23/21 03:14 56 L 16 94 PG Care Time/CCT Total # of Minutes Spent Total Time Spent with Patient: Total time spent is greater than 50% in coordination of care (as documented) at patient's floor/unit and/or counseling patient: Coding Level of Care Code 48582 Subseq Hosp Care Lvl 2 Diagnoses 2019 novel coronavirus-infected pneumonia (NCIP) U07.1; J12.82 Acute on chronic respiratory failure with hypoxia and hypercapnia J96.21; J96.22 Hyperkalemia E87.5 Rapid atrial fibrillation I48.91 Elevated INR (international normalized ratio) R79.1 (HFpEF) heart failure with preserved ejection fraction I50.30 CAD (coronary artery disease) I25.10 Constipation K59.00 Debility R53.81
[2021-07-23] MEDS: DIGOXIN 0.125 MG TAB PO SCH (16:38)
[2021-07-23] MEDS ORDERED: oxyCODONE HCL IR 5 MG TAB (IMMEDIATE RELEASE) PO STA (19:27)
[2021-07-24 06:58] LABS: INR 3.9 (0.9-1.1); Prothrombin Time 35.7 Seconds (9.0-12.0)
[2021-07-24] MEDS: dilTIAZem ER 120 MG CAPCR PO SCH (08:05)
[2021-07-24] MEDS: METOPROLOL TARTRATE 100 MG TAB PO SCH ×2 (08:06→20:18)
[2021-07-24] MEDS: TAMSULOSIN HCL 0.4 MG CAP PO SCH (08:06)
[2021-07-24] MEDS: FUROSEMIDE 80 MG TAB PO SCH (08:06)
[2021-07-24] MEDS: PANTOprazole 40 MG TAB PO SCH ×2 (08:07→20:18)
[2021-07-24] MEDS: POLYETHYLENE (MIRALAX) 17 GM PACK PO SCH (08:07)
[2021-07-24] MEDS: LEVALBUTEROL HCL 0.63 MG/3 ML NEB NEB SCH (08:29)
[2021-07-24] MEDS: IPRATROPIUM BROMIDE NEB SOLN 0.02% 2.5 ML VIAL NEB SCH (08:29)
[2021-07-24] MEDS: ONDANSETRON INJ 2 MG/ML 2 ML VIAL IV PRN ×2 (11:16→20:17)
--- NOTE | 2021-07-24 13:30 | Hospitalist Progress Note ---
Date of Service July 24, 2021 Assessment & Plan (1) 2019 novel coronavirus-infected pneumonia (NCIP): Plan: initially on BIPAP / and 50% FiO2, accessory muscle use Has since been taken off BIPAP during the day, down to his baseline 2.5L, O2 goal is 88% completed 10 days of baricitinib/dexamethasone (technically could receive additional 4 days of baricitinib but patient is no longer needing to remain in the hospital from a medical standpoint. It is now a safety/logistic issue) completed course of Remdesivir IV lasix given upfront--changed Lasix to PO (which he does take chronically). on 07/19, pearson out At this point, he is medically stable for discharge; however, disposition unclear given weakness/debility-- see below (2) Acute on chronic respiratory failure with hypoxia and hypercapnia: Plan: at baseline he wears 2.5L during the day and CPAP HS initially he was BIPAP dependent, but stable on 2.5L xdays, normal respiratory effort surprisingly recovered from Covid standpoint wear CPAP/BIPAP HS he told the RN he does not have CPAP at home, off for 3 weeks now, need to arrange this through CM (3) Hyperkalemia: Plan: 5.6 on 07/18. Normalized with Lasix WNL at 3.7 on 07/23 labs occasionally would follow as no supplementation on board and taking lasix 80mg daily (4) Rapid atrial fibrillation: Plan: resolved on 07/16 after adding back metoprolol and digoxin to his Cardizem HR 78 today continue Cardizem 120mg daily, Lopressor 100mg PO BID, Digoxin 125mcg PO daily has been back on Coumadin but supratherapeutic today (07/24) at 3.9. Hold Coumadin today with follow-up INR in a.m.-> May need to adjust Coumadin dose (5) Elevated INR (international normalized ratio): Plan: INR was 9.5 on 07/15, Once INR down, placed back on Coumadin but home dose changed from 6 mg to 5 mg. With 5 mg daily, INR became supratherapeutic again Again, uncertain if baricitinib may be contributing to this Hold Coumadin today (07/24) with follow-up INR in a.m. May need to consider adjustment of Coumadin to lower dose (6) (HFpEF) heart failure with preserved ejection fraction: Plan: BNP elevated, continue Lasix 80mg daily pulled pearson catheter (7) CAD (coronary artery disease): Plan: No evidence of ACS On metoprolol No aspirin on board but at his age, would not feel comfortable him being on both aspirin and Coumadin (8) Constipation: Plan: had a small smear 07/18, two small BM on 07/19 per RN continue Miralax daily, give a dose of Lactulose 30mg x 1 increase mobility, OOB to chair, therapy encouraged but patient refuses Reports is moving his bowels (9) Debility: Plan: Patient reports that he is unable to get out of bed due to dizziness Lives alone currently as his is at [facility] Lives in a mobile home but does have steps to get into the home Continues to refuse to work with therapy Lengthy discussion with patient regarding disposition. He is adamant that he is going home but is agreeable to go to placement. I explained that he has to participate with therapy to help determine his disposition but refuses. It is unsafe for him to be home alone at this point Again, he refuses to work with therapy to determine his needs but also admits that he cannot be independent Continues to say that he is going home despite the realization that he would not be able to get up the steps and into his home Case management on board. [facility] to get involved today 07/24 Case management has apparently spoken to family members for issues from the past, are unwilling to help provide additional support at this time. Case management spoke with patient today and he is now agreeable to [place] with hospice, referral sent. Plan: Medically stable for discharge if accepted by SNF when bed available. Admission and Anticipated Discharge Date Admission Date: July 14, 2021 Subjective Patient seen on daily rounds today. Hospitalized with COVID-19 PNA and acute on chronic hypoxic respiratory failure. He has since completed treatment with Remdesivir and Baricitinib. Weaned down to his chronic O2 requirements (2.5L). Denies fevers, chills, chest pain, abdominal pain, or vomiting. This morning c/o dizziness, cough, nausea, and shortness of breath. Still continues to refuse to get out of bed to assess his physical strength. Therapy has been attempting this for days but he refuses. He reports that he "cannot get out of bed" due to feeling dizzy/lightheaded but also is upset that he remains in the hospital. From a medical standpoint, he has been ready for discharge but he lives with a who is currently at [facility] for rehab. He states he would be willing to go to [facility] and would participate in therapy there, but will not do it here. I explained that [facility] would not take him without a therapy evaluation and he states that he will "just go home and ." He is agreeable to home with hospice. RN noted that he was having some complaints of generalized pain overnight and was medicated with Oxycontin which helped and was asking this morning if he could have it PRN. Review of Systems Review of Systems: CONSTITUTIONAL: +generalized weakness. Denies weight loss/gain, fever and chills, fatigue, malaise. HEENT: Denies changes in vision and hearing. RESPIRATORY: +SOB, cough. Denies wheezing. CV: Denies palpitations, CP, lower extremity edema, orthopnea, PND. GI: +nausea. Denies abdominal pain, vomiting and diarrhea. : Denies dysuria and urinary frequency, urgency, hesitancy. MUSCULOSKELETAL: +generalized pain. SKIN: Denies rash and pruritus. NEUROLOGICAL: +dizziness. Denies headache, syncope, focal weakness, numbness, tingling. PSYCHIATRIC: +depressed mood. Physical Exam Physical Exam: GENERAL: 80 yo obese WM. A&Ox3. NAD. LUNGS: Clear to auscultation bilaterally. No accessory muscle use. No W/R/R. CARDIOVASCULAR: Irregularly irregular. No JVD. ABDOMEN: Soft, NT. Bowel sounds normoactive x 4 quad. EXTREMITIES: No edema. Non-tender. Peripheral pulses +2/4. PSYCHIATRIC: Semi-cooperative. Agitated mood. SKIN: Warm, dry, intact. No rashes or lesions. Results & Data Results & Data ([facility]) Vital Signs (Past 12 Hours) Vital Signs Temp Pulse Pulse Resp BP Pulse Ox 07/24/21 07:16 36.6 C 54 L 16 144/68 H 98 07/24/21 02:56 76 20 94 Laboratory Results PT=35.7 INR=3.9 PG Care Time/CCT Total # of Minutes Spent Total Time Spent with Patient: Total time spent is greater than 50% in coordination of care (as documented) at patient's floor/unit and/or counseling patient: Coding Level of Care Code 70359 Subseq Hosp Care Lvl 2 Diagnoses 2019 novel coronavirus-infected pneumonia (NCIP) U07.1; J12.82 Acute on chronic respiratory failure with hypoxia and hypercapnia J96.21; J96.22 Hyperkalemia E87.5 Rapid atrial fibrillation I48.91 Elevated INR (international normalized ratio) R79.1 (HFpEF) heart failure with preserved ejection fraction I50.30 CAD (coronary artery disease) I25.10 Constipation K59.00 Debility R53.81
[2021-07-24] MEDS: DIGOXIN 0.125 MG TAB PO SCH (16:19)
[2021-07-24] MEDS ORDERED: oxyCODONE HCL IR 5 MG TAB (IMMEDIATE RELEASE) PO STA (20:21)
[2021-07-25] MEDS: LEVALBUTEROL HCL 0.63 MG/3 ML NEB NEB PRN ×2 (06:29→16:44)
[2021-07-25] MEDS: IPRATROPIUM BROMIDE NEB SOLN 0.02% 2.5 ML VIAL NEB PRN ×2 (06:29→16:44)
[2021-07-25 06:36] LABS: INR 3.2 (0.9-1.1); Prothrombin Time 29.3 Seconds (9.0-12.0)
[2021-07-25] MEDS: METOPROLOL TARTRATE 100 MG TAB PO SCH ×2 (08:34→20:22)
[2021-07-25] MEDS: dilTIAZem ER 120 MG CAPCR PO SCH (08:34)
[2021-07-25] MEDS ORDERED: SODIUM CHLORIDE 0.9% 1000ML 500 ML IV ONE (08:43)
[2021-07-25] MEDS: TAMSULOSIN HCL 0.4 MG CAP PO SCH (09:30)
[2021-07-25] MEDS: FUROSEMIDE 80 MG TAB PO SCH (09:30)
[2021-07-25] MEDS: POLYETHYLENE (MIRALAX) 17 GM PACK PO SCH (09:31)
[2021-07-25] MEDS: PANTOprazole 40 MG TAB PO SCH ×2 (09:31→20:23)
[2021-07-25] MEDS: BUDESONIDE 0.5 MG/2 ML VIAL (PULMICORT) NEB SCH ×2 (10:14→16:44)
[2021-07-25] MEDS: guaiFENesin 600 MG TABCR PO SCH ×2 (10:28→20:21)
[2021-07-25] MEDS: DIGOXIN 0.125 MG TAB PO SCH (15:21)
--- NOTE | 2021-07-25 15:54 | Hospitalist Progress Note ---
Date of Service July 25, 2021 Assessment & Plan (1) 2019 novel coronavirus-infected pneumonia (NCIP): Plan: initially on BIPAP / and 50% FiO2, accessory muscle use Has since been taken off BIPAP during the day, down to his baseline 2.5L, O2 goal is 88% completed 10 days of baricitinib/dexamethasone (technically could receive additional 4 days of baricitinib but patient is no longer needing to remain in the hospital from a medical standpoint. It is now a safety/logistic issue) completed course of Remdesivir IV lasix given upfront--changed Lasix to PO (which he does take chronically). on 07/19, pearson out After his bout this AM, added mucinex and Budesonide to his daily med regimen At this point, he is medically stable for discharge; however, disposition unclear given weakness/debility-- see below (2) Acute on chronic respiratory failure with hypoxia and hypercapnia: Plan: at baseline he wears 2.5L during the day and CPAP HS initially he was BIPAP dependent, but stable on 2.5L x days, normal respiratory effort surprisingly recovered from Covid standpoint wear CPAP/BIPAP HS he told the RN he does not have CPAP at home, off for 3 weeks now, need to arrange this through CM Wean O2 to keep sats between 88-92% (3) Hyperkalemia: Plan: 5.6 on 07/18. Normalized with Lasix WNL at 3.7 on 07/23 labs occasionally would follow as no supplementation on board and taking lasix 80mg daily (4) Rapid atrial fibrillation: Plan: resolved on 07/16 after adding back metoprolol and digoxin to his Cardizem HR 78 today continue Cardizem 120mg daily, Lopressor 100mg PO BID, Digoxin 125mcg PO daily has been back on Coumadin but supratherapeutic on 07/24 at 3.9. Hold Coumadin today with follow-up INR in a.m.-> May need to adjust Coumadin dose (5) Elevated INR (international normalized ratio): Plan: INR was 9.5 on 07/15, Once INR down, placed back on Coumadin but home dose changed from 6 mg to 5 mg. With 5 mg daily, INR became supratherapeutic again Again, uncertain if baricitinib may be contributing to this Hold Coumadin (07/24) with follow-up INR in a.m. May need to consider adjustment of Coumadin to lower dose (6) (HFpEF) heart failure with preserved ejection fraction: Plan: BNP elevated, continue Lasix 80mg daily pulled pearson catheter (7) CAD (coronary artery disease): Plan: No evidence of ACS On metoprolol No aspirin on board but at his age, would not feel comfortable him being on both aspirin and Coumadin (8) Constipation: Plan: had a small smear 07/18, two small BM on 07/19 per RN continue Miralax daily, give a dose of Lactulose 30mg x 1 increase mobility, OOB to chair, therapy encouraged but patient refuses Reports is moving his bowels (9) Debility: Plan: Patient reports that he is unable to get out of bed due to dizziness Lives alone currently as his is at [facility] Lives in a mobile home but does have steps to get into the home Continues to refuse to work with therapy Lengthy discussion with patient regarding disposition. He is adamant that he is going home and today is not agreeable to placement. I explained that he has to participate with therapy to help determine his disposition but refuses. It is unsafe for him to be home alone at this point Again, he refuses to work with therapy to determine his needs but also admits that he cannot be independent Continues to say that he is going home despite the realization that he would not be able to get up the steps and into his home Case management on board--area on aging to get involved Case management has apparently spoken to family members for issues from the past, are unwilling to help provide additional support at this time. Plan: Medically stable for SNF w/ hospice -- not safe to return home with hospice. case management working to assist in discharge plan. Admission and Anticipated Discharge Date Admission Date: July 14, 2021 Subjective Patient seen on daily rounds today. Called to the bedside by RN due to concern for his respiratory status this morning. Pt reported sx of difficulty breathing and was having trouble expectorating/clearing mucus. He was placed on Oxymask at 6L. Pt also c/o chest pain. BP checked at was 85/54. Upon recheck, his BP was 127/68 and pulse ox improved to 94% on oxymask. However, pulse ox dropped into the 70s and pt was minimally responsive. RN uptitrated O2 to 10L and was going to call code; however, then pt began responding appropriately. Upon my arrival, pt was awake/alert and able to answer questions appropriately. Pulse ox slowly improved while I was at the bedside back into the 80s and then 90s, RN was able to wearn O2 down. EKG obtained, reviewed at baseline, in afib. Trop ordered. During my visit, discussed code status with patient, he confirmed DNR/DNI status. This was conversation was witnessed by RN, Barbara Wright. Pt continues to refuse to get out of bed or to comply with PT/OT assessment. He is adamant that he is going home and is refusing placement. He wants to go home with hospice but there is no one to provide assistance for him at home ( is in rehab at [facility]). Pt remains hospitalized with COVID-19 PNA and acute on chronic hypoxic respiratory failure. He has since completed treatment with Remdesivir and Baricitinib. Chronic O2 requirements are around 2.5L NC. Review of Systems Review of Systems: CONSTITUTIONAL: +generalized weakness. Denies weight loss/gain, fever and chills, fatigue, malaise. HEENT: Denies changes in vision and hearing. RESPIRATORY: +SOB, cough. Denies wheezing. CV: Denies palpitations, CP, lower extremity edema, orthopnea, PND. GI: +nausea. Denies abdominal pain, vomiting and diarrhea. : Denies dysuria and urinary frequency, urgency, hesitancy. MUSCULOSKELETAL: +generalized pain. SKIN: Denies rash and pruritus. NEUROLOGICAL: +dizziness. Denies headache, syncope, focal weakness, numbness, tingling. PSYCHIATRIC: +depressed mood. Physical Exam Physical Exam: GENERAL: 80 yo obese WM. A&Ox3. NAD. LUNGS: Scattered rhonchi that clears with coughing. No accessory muscle use. CARDIOVASCULAR: Irregularly rhythm but CVR. No JVD. ABDOMEN: Soft, NT. Bowel sounds normoactive x 4 quad. EXTREMITIES: No edema. Non-tender. Peripheral pulses +2/4. PSYCHIATRIC: Semi-cooperative. Agitated mood. SKIN: Warm, dry, intact. No rashes or lesions. Results & Data Results & Data ([facility]) Vital Signs (Past 12 Hours) Vital Signs Temp Pulse Pulse Resp BP BP Pulse Ox 07/25/21 15:21 108 H 07/25/21 15:10 36.6 C 108 H 16 119/39 L 93 07/25/21 10:14 71 18 96 07/25/21 08:40 89 127/68 94 07/25/21 08:30 109 H 85/54 L 94 07/25/21 07:23 36.6 C 75 16 106/54 L 91 Laboratory Results Trop=0.052 INR=3.2 PG Care Time/CCT Total # of Minutes Spent Total Time Spent with Patient: Total time spent is greater than 50% in coordination of care (as documented) at patient's floor/unit and/or counseling patient: Coding Level of Care Code 80357 Subseq Hosp Care Lvl 3 Diagnoses 2019 novel coronavirus-infected pneumonia (NCIP) U07.1; J12.82 Acute on chronic respiratory failure with hypoxia and hypercapnia J96.21; J96.22 Hyperkalemia E87.5 Rapid atrial fibrillation I48.91 Elevated INR (international normalized ratio) R79.1 (HFpEF) heart failure with preserved ejection fraction I50.30 CAD (coronary artery disease) I25.10 Constipation K59.00 Debility R53.81
[2021-07-25] MEDS ORDERED: MELATONIN 3 MG TAB PO PRN (18:40)
[2021-07-25] MEDS: ONDANSETRON INJ 2 MG/ML 2 ML VIAL IV PRN (20:31)
[2021-07-25] MEDS ORDERED: oxyCODONE HCL IR 5 MG TAB (IMMEDIATE RELEASE) PO STA (20:51)
[2021-07-26] MEDS: BUDESONIDE 0.5 MG/2 ML VIAL (PULMICORT) NEB SCH ×2 (07:15→19:27)
[2021-07-26] MEDS: METOPROLOL TARTRATE 100 MG TAB PO SCH ×2 (08:46→21:54)
[2021-07-26] MEDS: TAMSULOSIN HCL 0.4 MG CAP PO SCH (08:46)
[2021-07-26] MEDS: guaiFENesin 600 MG TABCR PO SCH ×2 (08:46→21:54)
[2021-07-26] MEDS: PANTOprazole 40 MG TAB PO SCH ×2 (08:46→21:54)
[2021-07-26] MEDS: POLYETHYLENE (MIRALAX) 17 GM PACK PO SCH (08:47)
[2021-07-26] MEDS: FUROSEMIDE 80 MG TAB PO SCH (08:47)
[2021-07-26] MEDS: dilTIAZem ER 120 MG CAPCR PO SCH ×2 (08:47→08:48)
--- NOTE | 2021-07-26 13:37 | Electrocardiogram Report ---
Test Reason : Blood Pressure : / mmHG Vent. Rate : 102 BPM Atrial Rate : 080 BPM P-R Int : 000 ms QRS Dur : 098 ms QT Int : 320 ms P-R-T Axes : 000 -16 181 degrees QTc Int : 417 ms Atrial fibrillation with rapid ventricular response Minimal voltage criteria for LVH, may be normal variant Abnormal ECG When compared with ECG of 14-JUL-2021 12:10, Vent. rate has decreased BY [address] less depressed in Anterior leads Confirmed by Loki Corbin ([id number]) on 07/26/2021 1:37:05 PM Referred By: REFERRED SELF Confirmed By:Loki Corbin
[2021-07-26] MEDS: DIGOXIN 0.125 MG TAB PO SCH (15:00)
[2021-07-26] MEDS: ONDANSETRON INJ 2 MG/ML 2 ML VIAL IV PRN ×2 (15:00→19:19)
--- NOTE | 2021-07-26 15:52 | Hospitalist Progress Note ---
Date of Service July 26, 2021 Assessment & Plan (1) 2019 novel coronavirus-infected pneumonia (NCIP): Plan: initially on BIPAP / and 50% FiO2, accessory muscle use Has since been taken off BIPAP during the day, down to his baseline 2.5L, O2 goal is 88% completed 10 days of baricitinib/dexamethasone (technically could receive additional 4 days of baricitinib but patient is no longer needing to remain in the hospital from a medical standpoint. It is now a safety/logistic issue) completed course of Remdesivir IV lasix given upfront--changed Lasix to PO (which he does take chronically). on 07/19, pearson out mucinex and Budesonide added to his daily med regimen on 07/25 At this point, he is medically stable for discharge; however, disposition unclear given weakness/debility-- see below (2) Acute on chronic respiratory failure with hypoxia and hypercapnia: Plan: at baseline he wears 2.5L during the day and CPAP HS initially he was BIPAP dependent, but stable on 2.5L x days, normal respiratory effort surprisingly recovered from Covid standpoint wear CPAP/BIPAP HS he told the RN he does not have CPAP at home, off for 3 weeks now, need to arrange this through CM Wean O2 to keep sats between 88-92% (3) Hyperkalemia: Plan: 5.6 on 07/18. Normalized with Lasix WNL at 3.7 on 07/23 labs occasionally would follow as no supplementation on board and taking lasix 80mg daily (4) Rapid atrial fibrillation: Plan: resolved on 07/16 after adding back metoprolol and digoxin to his Cardizem HR 78 today continue Cardizem 120mg daily, Lopressor 100mg PO BID, Digoxin 125mcg PO daily has been back on Coumadin but supratherapeutic on 07/24 at 3.9. Hold Coumadin today with follow-up INR in a.m.-> May need to adjust Coumadin dose (5) Elevated INR (international normalized ratio): Plan: INR was 9.5 on 07/15, Once INR down, placed back on Coumadin but home dose changed from 6 mg to 5 mg. With 5 mg daily, INR became supratherapeutic again Again, uncertain if baricitinib may be contributing to this Hold Coumadin (07/24) with follow-up INR in a.m. May need to consider adjustment of Coumadin to lower dose (6) (HFpEF) heart failure with preserved ejection fraction: Plan: BNP elevated, continue Lasix 80mg daily pulled pearson catheter (7) CAD (coronary artery disease): Plan: No evidence of ACS On metoprolol No aspirin on board but at his age, would not feel comfortable him being on both aspirin and Coumadin (8) Constipation: Plan: had a small smear 07/18, two small BM on 07/19 per RN continue Miralax daily, give a dose of Lactulose 30mg x 1 increase mobility, OOB to chair, therapy encouraged but patient refuses Reports is moving his bowels (9) Debility: Plan: Patient reports that he is unable to get out of bed due to dizziness Lives [facility] Lives in a mobile home but does have steps to get into the home Continues to refuse to work with therapy Lengthy discussion with patient regarding disposition. He is adamant that he is going home and today is not agreeable to placement. I explained that he has to participate with therapy to help determine his disposition but refuses. It is unsafe for him to be home alone at this point Again, he refuses to work with therapy to determine his needs but also admits that he cannot be independent Continues to say that he is going home despite the realization that he would not be able to get up the steps and into his home Case management on board--area on aging to get involved Case management has apparently spoken to family members for issues from the past, are unwilling to help provide additional support at this time. (10) Elevated troponin: Plan: - Mild elevation in setting of acute hypoxia - Suspect represents type II demand ischemia and not true ACS due to obstructive CAD Plan: Medically stable for SNF w/ hospice -- not safe to return home with hospice. case management working to assist in discharge plan. suspect he will not comply with therapy, but will attempt. Admission and Anticipated Discharge Date Admission Date: July 14, 2021 Subjective Patient seen on daily rounds today. Remains hospitalized with COVID-19 PNA in a patient with underlying COPD and chronic respiratory failure. He has completed treatment with Remdesivir and Baricitinib. Following events of yesterday morning, pt has remained on his baseline oxygen requirements. No further hypoxic episodes. Pt continues to refuse to get out of bed or to comply with PT/OT assessment. He is adamant that he is going home and is refusing placement. He wants to go home with hospice but there is no one to provide assistance for him at home ( is in rehab at [facility]). States that his sister will be able to help him but not stay with him 24-7 to care for him. He is agreeable to [facility] referral only. Case management tried to reiterate with him today that he would have to comply with therapy assessment here and at [facility]. Continues to have only c/o shortness of breath and nausea. Review of Systems Review of Systems: CONSTITUTIONAL: +generalized weakness. Denies weight loss/gain, fever and chills, fatigue, malaise. HEENT: Denies changes in vision and hearing. RESPIRATORY: +SOB, cough. Denies wheezing. CV: Denies palpitations, CP, lower extremity edema, orthopnea, PND. GI: +nausea. Denies abdominal pain, vomiting and diarrhea. : Denies dysuria and urinary frequency, urgency, hesitancy. MUSCULOSKELETAL: +generalized pain. SKIN: Denies rash and pruritus. NEUROLOGICAL: +dizziness. Denies headache, syncope, focal weakness, numbness, tingling. PSYCHIATRIC: +depressed mood. Physical Exam Physical Exam: GENERAL: 80 yo obese WM. A&Ox3. NAD. LUNGS: Scattered rhonchi that clears with coughing. No accessory muscle use. CARDIOVASCULAR: Irregularly rhythm but CVR. No JVD. ABDOMEN: Soft, NT. Bowel sounds normoactive x 4 quad. EXTREMITIES: No edema. Non-tender. Peripheral pulses +2/4. PSYCHIATRIC: Semi-cooperative. Agitated mood. SKIN: Warm, dry, intact. No rashes or lesions. Results & Data Results & Data ([facility]) Vital Signs (Past 12 Hours) Vital Signs Temp Pulse Pulse Resp BP Pulse Ox 07/26/21 15:00 98 H 07/26/21 07:43 36.6 C 76 20 133/53 L 96 07/26/21 07:18 77 16 93 Laboratory Results Slight bump in troponin but peak was 0.08 Repeat this AM was 0.06 PG Care Time/CCT Total # of Minutes Spent Total Time Spent with Patient: Total time spent is greater than 50% in coordination of care (as documented) at patient's floor/unit and/or counseling patient: Coding Level of Care Code 67204 Subseq Hosp Care Lvl 2 Diagnoses 2019 novel coronavirus-infected pneumonia (NCIP) U07.1; J12.82 Acute on chronic respiratory failure with hypoxia and hypercapnia J96.21; J96.2 2 Hyperkalemia E87.5 Rapid atrial fibrillation I48.91 Elevated INR (international normalized ratio) R79.1 (HFpEF) heart failure with preserved ejection fraction I50.30 CAD (coronary artery disease) I25.10 Constipation K59.00 Debility R53.81 Elevated troponin R77.8
[2021-07-27 07:16] LABS: INR 1.8 (0.9-1.1); Prothrombin Time 17.4 Seconds (9.0-12.0)
[2021-07-27] MEDS: BUDESONIDE 0.5 MG/2 ML VIAL (PULMICORT) NEB SCH (07:31)
[2021-07-27] MEDS ORDERED: WARFARIN SOD 10 MG TAB PO ONE (09:00)
[2021-07-27] MEDS: PANTOprazole 40 MG TAB PO SCH (09:25)
[2021-07-27] MEDS: TAMSULOSIN HCL 0.4 MG CAP PO SCH (09:25)
[2021-07-27] MEDS: guaiFENesin 600 MG TABCR PO SCH (09:26)
[2021-07-27] MEDS: METOPROLOL TARTRATE 100 MG TAB PO SCH (09:26)
[2021-07-27] MEDS: dilTIAZem ER 120 MG CAPCR PO SCH (09:26)
[2021-07-27] MEDS: FUROSEMIDE 80 MG TAB PO SCH (09:26)
[2021-07-27] MEDS: POLYETHYLENE (MIRALAX) 17 GM PACK PO SCH (10:30)
--- NOTE | 2021-07-27 14:13 | Discharge Summary ---
Date of Service July 27, 2021 Admission HPI Per Admitting Provider 80 yo male presents to the hospital after rescinding home hospice. Patient has h/oend-stage COPD, CAD, diastolic heart failure, atrial fibrillation on Coumadin. Patient was recently admittedfor COPD exacerbation and discharged to rehab and transitioned to home hospice. Patient reports feeling sick: with a fever, SOB. Once patient arrived, he was found to be hypoxic and in A Fib. Placed on bipap and diltiazem drip. Admission Exam Per Admitting Provider Constitutional: + ill appearing (on BIPAP) Eyes: PERRL, conjunctivae normal, anicteric sclerae ENMT: external ear and nose normal, oropharynx normal Neck: trachea midline, no thyromegaly Respiratory: + respiratory distress and + uses access ory muscles Auscultation: + diminished lung sounds and + rhonchi Cardiovascular: Rate/Rhythm: + tachycardic and + irregularly irregular Gastrointestinal (Abdomen): normal bowel sounds, soft, nontender, no hepatosp lenomegaly Musculoskeletal: no cyanosis or clubbing, extremities motor strength 5/5 Skin: no rashes, warm and dry Neurologic: PERRL, EOMI, accommodation nl, no face palsy, no dysarthria Psychiatric: A+Ox3, euthymic affect Lymphatic: no cervical or axillary lymphadenopathy Principal Diagnosis COVID PNA Acute on chronic hypoxic respiratory failure Discharge Exam GENERAL: 80 yo obese WM. A&Ox3. NAD. LUNGS: Scattered rhonchi that clears with coughing. No accessory muscle use. CARDIOVASCULAR: Irregularly rhythm but CVR. No JVD. ABDOMEN: Soft, NT. Bowel sounds normoactive x 4 quad. EXTREMITIES: No edema. Non-tender. Peripheral pulses +2/4. PSYCHIATRIC: Semi-cooperative. Agitated mood. SKIN: Warm, dry, intact. No rashes or lesions. Discharge Data Allergies Allergy/AdvReac Type Severity Reaction Status Date / Time acetazolamide Allergy Intermediate swelling Verified 05/27/21 13:09 [From [employer]] Consultations None Ordered Studies Chest X-Ray 07/14/21 12:14 XR chest 1V portable CLINICAL HISTORY: Dyspnea, hypoxia, ?CHF. COMPARISON STUDY: 06/26/2021 TECHNIQUE: 1 view of the chest FINDINGS: Single frontal view of the chest demonstrates the heart to be enlarged. Compared to previous examination, there is increasing right pleural effusion with right middle lobe and right lower lobe atelectasis/collapse. Minimal left basilar atelectasis also present. There is also very minimal blunting of the left costophrenic angle suspicious for small left pleural effusion. There is no evidence for vascular congestion. There is no acute osseous pathology. IMPRESSION: Interval increase in right pleural effusion with right lower lobe and right middle lobe atelectasis/collapse. There is small left pleural effusion and left basilar atelectasis are also present. ACT 112: Negative or not required by law. Electronically signed by: Lucas Bai M.D. 07/14/2021 12:55 PM Hospital Course (1) 2019 novel coronavirus-infected pneumonia (NCIP): initially on BIPAP 27/03 and 50% FiO2, accessory muscle use Has since been taken off BIPAP during the day, down to his baseline 2.5L, O2 goal is 88% completed 10 days of baricitinib/dexamethasone (technically could receive additional 4 days of baricitinib but patient is no longer needing to remain in the hospital from a medical standpoint. It is now a safety/logistic issue) completed course of Remdesivir IV lasix given upfront--changed Lasix to PO (which he does take chronically). on 07/19, pearson out mucinex and Budesonide added to his daily med regimen on 07/25 At this point, he is medically stable for discharge; however, disposition unclear given weakness/debility-- see below (2) Acute on chronic respiratory failure with hypoxia and hypercapnia: at baseline he wears 2.5L during the day and CPAP HS initially he was BIPAP dependent, but stable on 2.5L x days, normal respiratory effort surprisingly recovered from Covid standpoint wear CPAP/BIPAP HS he told the RN he does not have CPAP at home, off for 3 weeks now, need to arrange this through CM Wean O2 to keep sats between 88-92% (3) Hyperkalemia: 5.6 on 07/18. Normalized with Lasix WNL at 3.7 on 07/23 labs occasionally would follow as no supplementation on board and taking lasix 80mg daily (4) Rapid atrial fibrillation: resolved on 07/16 after adding back metoprolol and digoxin to his Cardizem HR 78 today continue Cardizem 120mg daily, Lopressor 100mg PO BID, Digoxin 125mcg PO daily has been back on Coumadin but supratherapeutic on 07/24 at 3.9. Held Coumadin, INR this morning subtherapeutic 1.8. Given Coumadin 10mg PO x1 now (07/27) and will start on 4mg daily. PT/INR repeat 48 hours to be collected by home health RN. (5) Elevated INR (international normalized ratio): INR was 9.5 on 07/15, Once INR down, placed back on Coumadin but home dose changed from 6 mg to 5 mg. With 5 mg daily, INR became supratherapeutic again Again, uncertain if baricitinib may be contributing to this See #4 (6) (HFpEF) heart failure with preserved ejection fraction: BNP elevated, continue Lasix 80mg daily pulled pearson catheter (7) CAD (coronary artery disease): No evidence of ACS On metoprolol No aspirin on board but at his age, would not feel comfortable him being on both aspirin and Coumadin (8) Constipation: had a small smear 07/18, two small BM on 07/19 per RN continue Miralax daily, give a dose of Lactulose 30mg x 1 increase mobility, OOB to chair, therapy encouraged but patient refuses Reports is moving his bowels (9) Debility: Patient reports that he is unable to get out of bed due to dizziness Lives alone currently as his is [facility] Lives in a mobile home but does have steps to get into the home Continues to refuse to work with therapy Lengthy discussion with patient regarding disposition. He is adamant that he is going home and today is not agreeable to placement. I explained that he has to participate with therapy to help determine his disposition but refuses. It is unsafe for him to be home alone at this point Again, he refuses to work with therapy to determine his needs but also admits that he cannot be independent Continues to say that he is going home despite the realization that he would not be able to get up the steps and into his home Case management on board--[facility] to get involved Case management has apparently spoken to family members for issues from the past, are unwilling to help provide additional support at this time. (10) Elevated troponin: - Mild elevation in setting of acute hypoxia - Suspect represents type II demand ischemia and not true ACS due to obstructive CAD Medically stable for discharge. Has home O2, wears 2.5L chronically. Discussed need for him to allow therapy to do an assessment to determine appropriate disposition, but pt has been adamant throughout his stay that he will not comply with therapy assessment. Was agreeable to [facility] referral, but because he will not comply with therapy, they have declined him. He is refusing to go to a SNF. He will only go home with hospice. He states his sister will assist with his care. I have personally talked with his sister, Mehnaz, who says she is willing to help take responsibility for his care. Although she does not feel that she can provide 24/7 care, she believes she may be able to get his daughter and granddaughter involved to assist her. Case management talked with hospice, they are aware of the situation. Will also contact [facility] once patient is discharged. At this point, pt will be discharged home in company of his sister with hospice care. Total Time Total Time Spent Total Time Spent (In Minutes): >30 minutes Discharge Plan Discharge Items Patient Disposition: Hospice - Home Reason For Visit: COVID 19 PNEUMONIA Discharge Diagnosis: COVID Pneumonia Activity: Per Instructions section Activity Comment: Do not get up without assistance Non-emergency contact: Primary Care Provider Call non-emergency contact if: your symptoms worsen Follow-up/Referrals: Andie Peace CRNP [Primary Care Provider] - Diet: Regular and Heart Healthy Ambulatory Orders: Prothrombin Time INR (Routine) Timeframe: 2 Days Location: Determined by Patient Ordered By: Polina Chen Addtl Attending Provider Instructions: Hospice to follow up with patient at home Recommend home PT/OT Use oxygen as directed - 2.5L continuously Follow up PT/INR lab on 07/29/21 Pending Studies at Discharge: No Stand-Alone Forms: My [facility] [employer] Medications and DC Order Prescriptions: New warfarin 4 mg tablet 4 mg PO DAILY Qty: 30 RF: 0 Continued furosemide [Lasix] 80 mg tablet 80 mg PO QAM Qty: 30 RF: 3 atorvastatin 40 mg tablet 40 mg PO HS Qty: 30 RF: 5 diltiazem HCl 120 mg capsule,extended release 24hr 120 mg PO QAM Qty: 30 RF: 5 tamsulosin [Flomax] 0.4 mg capsule 0.4 mg PO DAILY Qty: 30 RF: 2 multivitamin [Daily Multi-Vitamin] tablet 1 tab PO QAM RF: 0 pantoprazole 40 mg Tablet,Delayed Release (Dr/Ec) 40 mg PO BID Qty: 60 RF: 2 nystatin [Nystop] 100,000 unit/gram Powder 1 applic EXT TID Qty: 30 RF: 1 ZTlido 1.8 % adhesive patch,medicated 1 patch topical DAILY Qty: 30 RF: 0 digoxin [Digitek] 125 mcg (0.125 mg) Tablet 125 mcg PO [id number]@1600 Qty: 24 RF: 0 (DME) BiPap Machine Misc See Rx Instructions .ROUTE Qty: 1 RF: 0 Changed potassium chloride [Klor-Con M20] 20 mEq tablet,ER particles/crystals 20 meq PO DAILY Qty: 60 RF: 1 metoprolol tartrate [Lopressor] 50 mg tablet 100 mg PO BID Qty: 0 RF: 0 Discontinued warfarin [Jantoven] 7.5 mg Tablet 7.5 mg PO [id number] Qty: 20 RF: 0 warfarin 5 mg tablet 6 mg PO DAILY RF: 0 Discharge Orders: Discharge Order (Routine); Ordered 07/27/21 Ordered By: Polina Chen Admission Data Admit Date/Time: 07/14/21 15:47 Attending Provider: Odell Arana Admit Provider: Parag Hayes Primary Care Provider: Andie Peace Other Providers: [facility] ; Parag Hayes ; [facility] ; [facility] Other Interventions: Discharge Summary Assessment (RN) Last Done: 07/27/21 13:26 Coding Level of Care Code D/C DAY MANAGEMENT >30 MINS Diagnoses 2019 novel coronavirus-infected pneumonia (NCIP) U07.1; J12.82 Acute on chronic respiratory failure with hypoxia and hypercapnia J96.21; J96.22 Hyperkalemia E87.5 Rapid atrial fibrillation I48.91 Elevated INR (international normalized ratio) R79.1 (HFpEF) heart failure with preserved ejection fraction I50.30 CAD (coronary artery disease) I25.10 Constipation K59.00 Debility R53.81 Elevated troponin R77.8
[2021-07-28] MEDS ORDERED: WARFARIN SOD 4 MG TAB PO SCH (16:00)
--- NOTE | 2021-08-09 10:10 | Coding Query ---
CONGESTIVE HEART FAILURE To Promote full compliance with coding requirements relating to patient care, physician participation is requested in all cases of astronomy department chair uncertainty. Please assist us with the following questions. A diagnosis of Congestive Heart Failure is documented in the patient's medical record. To accurately code this diagnosis and to compare patient severity, we ask that you specify the type of heart failure by placing an X within the parenthesis (x). DS & progress notes document diastolic HF. DS states 80 mg Lasix given daily. SYSTOLIC HEART FAILURE ( ) Acute ( ) Chronic ( ) Acute on Chronic ( ) Rheumatic ( ) Unknown DIASTOLIC HEART FAILURE ( ) Acute (x ) Chronic ( ) Acute on Chronic ( ) Rheumatic ( ) Unknown since we have clearly documented HFpEF which is also chronic diastolic heart failure equivalent, why should we document both? COMBINED SYSTOLIC AND DIASTOLIC HEART FAILURE ( ) Acute ( ) Chronic ( ) Acute on Chronic ( ) Rheumatic ( ) Unknown Was the CHF Present On Admission? Please check the appropriate box: (x ) Present on Admission ( ) Not Present On Admission ( ) Clinically undetermined Thank you Jean MCCORMICK
== END 2021-07-27 15:23 | disposition home health service (06) | DRG 177 ==
LOC: ED 12:03 → EDINP 15:47 → SUATTDRO 15:47 → 2S 19:21 → 3W 07-22 02:03

== ENCOUNTER 2021-07-31 16:57 | Inpatient (IN) ==
--- NOTE | 2021-07-31 17:20 | Emergency Department Note ---
Impression & Plan Weakness, Debilitated, Anemia, COVID-19 ED Provider Note NAME: MELANY HERZOG AGE: 80 SEX: M : 1940 ARRIVES VIA: Ambulance INFORMANT: [Patient][nursing] ED PROVIDER(S): [Humberto Mary MD] CHIEF COMPLAINT: Weakness HISTORY OF PRESENT ILLNESS: The patient is a 80-year-old male who was discharged from our hospital 4 days ago. He had been in the hospital for COVID-19. Patient has underlying lung and heart disease. He wears oxygen at all times. The patient was in a reclining chair today, this is the same chair he has been in since being discharged from the hospital 4 days ago. He is unable to walk or do anything on his own. Before his recent hospitalization, he was walking with a walker and cane. The patient was offered rehab at hospital discharge but refused. He is now reconsidered and would be willing to entertain rehab therapy. The patient's breathing is baseline. He is always short of breath but does not feel any more short of breath than normal. He has not had fever. He does not have any chest pain. The patient states that he is using a urinal as he cannot get to the bathroom. He has not had a bowel movement in 4 days since being discharged from the hospital. REVIEW OF SYSTEMS: See HPI for pertinent positives and negatives. A total of ten systems were reviewed and were otherwise negative. PMHx/PSHx: See Below SOCIAL HISTORY: See Below. PHYSICAL EXAM: GENERAL: Patient is in no acute distress. HEENT: No acute trauma, normocephalic atraumatic, mucous membranes moist, no nasal congestion, no scleral icterus. NECK: No stridor, no adenopathy, no meningismus, trachea is midline. LUNGS: Clear to auscultation bilaterally when listening anterior no wheeze, no rhonchi, breath sounds equal. HEART: Without murmurs gallops or rubs, regular rate and rhythm. ABDOMEN: Soft, nontender, bowel sounds positive, no hernias, no peritonitis. EXTREMITIES: No cyanosis, moderate bilateral pedal edema, full range of motion of all the joints without pain or difficulty, no signs for acute trauma. NEUROLOGIC: Oriented x 3, he can move both lower extremities equally but cannot lift either off the bed on his own. No speech slur or facial droop. SKIN: No rash, no jaundice, no diaphoresis. Rectal: Dark brown stool, heme-negative. DIFFERENTIAL DIAGNOSIS: Infection, dehydration, metabolic abnormality, hypo/hyperglycemia, debilitation, electrolyte disturbance, anemia, hypoxia, cardiac sources, intracerebral event, toxicologic issues, stroke, TIA, as well as other pathologies. EMERGENCY DEPARTMENT COURSE/PROCEDURES: ECG: Indication was weakness. The ECG shows atrial fibrillation with a rate of 69. There is an incomplete right bundle branch block. There are inverted T waves in the anterior and lateral leads. There is no ST elevation, no PVCs. The QTc is 413. Compared to an ECG from 25 July 2021, I see no significant change. Continuous Cardiac Monitoring: An order was placed for continuous cardiac monitoring. The monitor shows a rate of 86 with atrial fibrillation. MEDICAL DECISION MAKING: There is a mild leukocytosis, the white count is actually better than it was just a few days ago. The patient does have a mild anemia. He has a history of anemia but today's value was less than his values from recent testing. A rectal exam was performed and the stool was dark brown and heme-negative. Platelet count mildly elevated at 600. No significant electrolyte abnormality or kidney failure. No worrisome liver enzyme elevation. The patient appeared to be in a euthyroid state. ECG showed atrial fibrillation, no obvious ischemia. Cardiac enzyme testing x1 does show a slight troponin elevation although, the elevated troponin appears chronic. Urinalysis does not show infection. Covid testing returned positive-the patient was recently discharged from our hospital after an admission for Covid pneumonia. Chest x-ray shows a right effusion but the film looks better than previous films. KUB does not show significant constipation. The patient presents debilitated. He was offered rehab when he first left the hospital 4 days ago but refused. He is now willing to undergo rehab therapy as he cannot walk and has been in the same chair since discharge-- 4 days ago I did speak with case management. They talked with the patient and at this point, the patient will require a hospital stay and eventual rehab placement. The rehab transfer cannot be accomplished this evening. I did speak with the patient, the on-call hospitalist has been consulted. The patient is currently resting comfortably. Past Med/Surg History Medical History (HFpEF) heart failure with preserved ejection fraction Aortic stenosis, mild CAD (coronary artery disease) Cancer of prostate Chronic hypoxemic respiratory failure COPD (chronic obstructive pulmonary disease) Depression DVT (deep venous thrombosis) Dyslipidemia Heart disease HTN (hypertension) Myocardial infarct Sleep apnea TIA (transient ischemic attack) Surgical History History of appendectomy Hx of tonsillectomy Hx of vasectomy Family History Family/Other Prostate cancer Myocardial infarction Denies family history of Ovarian cancer Breast cancer Colorectal cancer Social History Smoking Status: Former smoker Tobacco Type: Cigarettes Second Hand Exposure: No; Hx Alcohol Use: No Hx Substance Use: No Preferred Language: Kazakh Communication Ability: Effective 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 Beliefs That Will Affect Care: None marital status: Current Living Situation: Spouse current occupational status: retired Feels Safe at Home: Yes caffeine: Yes Dental Care, Regularly: No Physical Activity Frequency: Does not Exercise Seatbelt Use: always Sunscreen Use: No Assistive Devices: Glasses and Oxygen - Continuous Allergies Allergies Allergy/AdvReac Type Severity Reaction Status Date / Time acetazolamide Allergy Intermediate swelling Verified 05/27/21 13:09 [From Diam[employer]els] Home Meds Home Medications Medication Instructions Recorded Confirmed multivitamin (Daily Multi-Vitamin) 1 tab PO QAM 04/11/21 06/21/21 Previous Rx's Medication Instructions Recorded nystatin 100,000 unit/gram topical 1 applic EXT TID #30 g 04/22/21 powder (Nystop) furosemide 80 mg tablet (Lasix) 80 mg PO QAM #30 tab 05/10/21 lidocaine 1.8 % topical patch 1 patch TOPICAL DAILY #30 ea 05/25/21 (ZTlido) atorvastatin 40 mg tablet 40 mg PO HS #30 tab 06/05/21 diltiazem HCl 120 mg 120 mg PO QAM #30 cap 06/05/21 capsule,extended release 24 hr tamsulosin 0.4 mg capsule (Flomax) 0.4 mg PO DAILY #30 cap 06/05/21 BiPap Machine #1 ea 06/27/21 warfarin 4 mg tablet 4 mg PO DAILY #30 tab 07/27/21 BiPap Machine #1 ea 07/28/21 BiPap Machine #1 ea 07/28/21 BiPap Supplies #1 ea 07/28/21 Hospital Bed Homecare (Hospital #1 ea 07/28/21 Bed) Hospital Bed Homecare (Hospital #1 ea 07/28/21 Bed) digoxin 125 mcg (0.125 mg) tablet 125 mcg PO [id number]@1600 #24 07/28/21 (Digitek) tab metoprolol tartrate 100 mg tablet 100 mg PO BID #30 tab 07/28/21 pantoprazole 40 mg tablet,delayed 40 mg PO BID #60 tab 07/28/21 release potassium chloride 20 mEq 20 meq PO DAILY #60 tab 07/28/21 tablet,extended release(part/cryst) (Klor-Con M) Results & Data (ED) Vital Signs Vital Signs - 24 hr 07/31/21 17:09 07/31/21 18:20 Temperature 36.5 C Temperature Source Oral Pulse Rate 86 71 Pulse Rhythm Regular Respiratory Rate 19 18 Respiratory Effort / Characteristics Non-Labored Blood Pressure 133/62 Blood Pressure Mean 85 Blood Pressure Position Lying Pulse Oximetry 100 100 Oxygen Delivery Method Nasal Cannula Nasal Cannula Oxygen Flow Rate 4 4 Sepsis Recent Fever Within 48 Hours No Sepsis New/Unexplained Change in Mental Status No Sepsis Action Taken by Nursing No Action Required Home Medications Current Medication List: was personally reviewed by me Laboratory Data Attestation: I reviewed the patient's lab results. Result diagrams: 07/31/21 17:40 07/31/21 17:40 Lab Results 07/31/21 07/31/21 07/31/21 Range/Units 17:40 17:40 17:50 WBC 10.87 H (4.8-10.8) K/uL RBC 3.52 L (4.7-6.1) M/uL Hgb 10.9 L (14.0-18.0) g/dL Hct 34.9 L (42-52) % MCV 99.1 (80-100) fL MCH 31.0 (25-34) pg MCHC 31.2 L (32-36) g/dL RDW Std Deviation 53.7 H (36.4-46.3) fL RDW Coeff of Luciano 14.9 H (11.5-14.5) % Plt Count 601 H (130-400) K/uL MPV 10.4 (7.4-10.4) fL Immature Gran % (Auto) 0.4 % Neut % (Auto) 75.4 % Lymph % (Auto) 14.4 % Morton % (Auto) 9.5 % Eos % (Auto) 0.2 % Baso % (Auto) 0.1 % Neut # (Auto) 8.20 H (1.4-6.5) K/uL Lymph # (Auto) 1.57 (1.2-3.4) K/uL Morton # (Auto) 1.03 H (0.11-0.59) K/uL Eos # (Auto) 0.02 (0-0.5) K/uL Baso # (Auto) 0.01 (0-0.2) K/uL Immature Gran # (Auto) 0.04 H (0.00-0.02) K/uL Sodium 139 (136-145) mmol/L Potassium 3.8 (3.5-5.1) mmol/L Chloride 98 (98-107) mmol/L Carbon Dioxide 37 H (21-32) mmol/L Anion Gap 4.0 (3-11) BUN 30 H (7-18) mg/dl Creatinine 0.97 (0.6-1.4) mg/dl Est Cr Clr Drug Dosing 73.5 ml/min Est GFR ( Amer) 85.7 ml/min Est GFR (Non-Af Amer) 73.9 ml/min BUN/Creatinine Ratio 30.6 H (10-20) Glucose 121 H (70-99) mg/dl Calcium 8.9 (8.5-10.1) mg/dl Total Bilirubin 0.5 (0.2-1) mg/dl AST 17 (15-37) U/L ALT 33 (12-78) Alkaline Phosphatase 72 (45-117) U/L Troponin I 0.058 H* (0-0.045) ng/ml Total Protein 5.6 L (6.4-8.2) gm/dl Albumin 2.3 L (3.4-5.0) gm/dl Globulin 3.3 (2.5-4.0) gm/dl Albumin/Globulin Ratio 0.7 L (0.9-2) TSH 1.510 (0.300-4.500) uIu/ml Urine Color Urine Appearance (Clear) Urine pH (4.5-7.5) Ur Specific Baldwin (1.000-1.030) Urine Protein (Negative) Urine Glucose (UA) (Negative) Urine Ketones (Negative) Urine Blood (Negative) Urine Nitrite (Negative) Urine Bilirubin (Negative) Urine Urobilinogen (Negative) Ur Leukocyte Esterase (Negative) SARS-CoV-2, RNA, NAAT POSITIVE A* (NEGATIVE) 07/31/21 Range/Units 18:34 WBC (4.8-10.8) K/uL RBC (4.7-6.1) M/uL Hgb (14.0-18.0) g/dL Hct (42-52) % MCV (80-100) fL MCH (25-34) pg MCHC (32-36) g/dL RDW Std Deviation (36.4-46.3) fL RDW Coeff of Luciano (11.5-14.5) % Plt Count (130-400) K/uL MPV (7.4-10.4) fL Immature Gran % (Auto) % Neut % (Auto) % Lymph % (Auto) % Morton % (Auto) % Eos % (Auto) % Baso % (Auto) % Neut # (Auto) (1.4-6.5) K/uL Lymph # (Auto) (1.2-3.4) K/uL Morton # (Auto) (0.11-0.59) K/uL Eos # (Auto) (0-0.5) K/uL Baso # (Auto) (0-0.2) K/uL Immature Gran # (Auto) (0.00-0.02) K/uL Sodium (136-145) mmol/L Potassium (3.5-5.1) mmol/L Chloride (98-107) mmol/L Carbon Dioxide (21-32) mmol/L Anion Gap (3-11) BUN (7-18) mg/dl Creatinine (0.6-1.4) mg/dl Est Cr Clr Drug Dosing ml/min Est GFR ( Amer) ml/min Est GFR (Non-Af Amer) ml/min BUN/Creatinine Ratio (10-20) Glucose (70-99) mg/dl Calcium (8.5-10.1) mg/dl Total Bilirubin (0.2-1) mg/dl AST (15-37) U/L ALT (12-78) Alkaline Phosphatase (45-117) U/L Troponin I (0-0.045) ng/ml Total Protein (6.4-8.2) gm/dl Albumin (3.4-5.0) gm/dl Globulin (2.5-4.0) gm/dl Albumin/Globulin Ratio (0.9-2) TSH (0.300-4.500) uIu/ml Urine Color Yellow Urine Appearance Clear (Clear) Urine pH 8.5 H (4.5-7.5) Ur Specific Baldwin 1.014 (1.000-1.030) Urine Protein Negative (Negative) Urine Glucose (UA) Negative (Negative) Urine Ketones Negative (Negative) Urine Blood Negative (Negative) Urine Nitrite Negative (Negative) Urine Bilirubin Negative (Negative) Urine Urobilinogen Negative (Negative) Ur Leukocyte Esterase Negative (Negative) SARS-CoV-2, RNA, NAAT (NEGATIVE) Imaging Data Radiologist's Impression: Chest X-Ray 07/31/21 17:13 XR chest 1V portable CLINICAL HISTORY: weakness. Evaluate cardiopulmonary status COMPARISON STUDY: 07/14/2021 TECHNIQUE: 1 view of the chest FINDINGS: Single frontal view of the chest demonstrates the heart size to again be enlarged. Compared to the previous study, only small right pleural effusion remains present. The lungs are clear of alveolar opacities. Old rib fractures are again seen on the right with scarring present. There is no evidence for left pleural effusion. There is no evidence for vascular congestion. There is no acute osseous pathology. IMPRESSION: Small residual right pleural effusion. Otherwise, no acute chest disease. ACT 112: Negative or not required by law. Electronically signed by: Lucas Bai M.D. 07/31/2021 6:24 PM KUB X-Ray 07/31/21 17:14 XR KUB/Abdomen 1 view CLINICAL HISTORY: Abdominal pain. Reported constipation. COMPARISON STUDY: 04/17/2021 TECHNIQUE: 2 views of the abdomen. FINDINGS: The bowel gas pattern is within normal limits without evidence for dilatation or obstruction. No significant fecal stasis or fecal impaction are identified. There is no evidence for organomegaly or gross intra-abdominal mass. No abnormal calcifications are seen along the course of the urinary tracts bilaterally. Radiotherapy seeds are seen within the prostate bed. No acute osseous pathology. IMPRESSION: 1.No acute intra-abdominal abnormality. ACT 112: Negative or not required by law. Electronically signed by: Lucas Bai M.D. 07/31/2021 6:30 PM Discharge Plan Visit Data Chief Complaint: Illness Stated Complaint: Unable to Ambulate ED Provider: Humberto Mary Discharge Problem: Weakness, Debilitated, Anemia, COVID-19 Patient Disposition: Admitted As Inpatient Condition: Fair Forms Stand Alone Forms: [facility] Prescriptions Prescriptions: No Action furosemide [Lasix] 80 mg tablet 80 mg PO QAM Qty: 30 RF: 3 atorvastatin 40 mg tablet 40 mg PO HS Qty: 30 RF: 5 diltiazem HCl 120 mg capsule,extended release 24hr 120 mg PO QAM Qty: 30 RF: 5 tamsulosin [Flomax] 0.4 mg capsule 0.4 mg PO DAILY Qty: 30 RF: 2 pantoprazole 40 mg tablet,delayed release (DR/EC) 40 mg PO BID Qty: 60 RF: 5 potassium chloride [Klor-Con M20] 20 mEq tablet,ER particles/crystals 20 meq PO DAILY Qty: 60 RF: 5 metoprolol tartrate 100 mg tablet 100 mg PO BID Qty: 30 RF: 5 digoxin [Digitek] 125 mcg (0.125 mg) tablet 125 mcg PO SuMoTuWeThSa@1600 Qty: 24 RF: 5 (DME) Hospital Bed Misc See Rx Instructions .ROUTE Qty: 1 RF: 0 (DME) BiPap Machine Misc See Rx Instructions .ROUTE Qty: 1 RF: 0 (DME) BiPap Supplies Misc See Rx Instructions .ROUTE Qty: 1 RF: 0 (DME) BiPap Machine Misc See Rx Instructions .Route Qty: 1 RF: 0 (DME) Hospital Bed Misc See Rx Instructions .Route Qty: 1 RF: 0 multivitamin [Daily Multi-Vitamin] tablet 1 tab PO QAM RF: 0 nystatin [Nystop] 100,000 unit/gram Powder 1 applic EXT TID Qty: 30 RF: 1 ZTlido 1.8 % adhesive patch,medicated 1 patch topical DAILY Qty: 30 RF: 0 (DME) BiPap Machine Misc See Rx Instructions .ROUTE Qty: 1 RF: 0 warfarin 4 mg tablet 4 mg PO DAILY Qty: 30 RF: 0 Referrals Referrals: Andie Peace CRNP [Primary Care Provider] -
[2021-07-31 17:51] LABS: Basophils # (auto) 0.01 K/uL (0-0.2); Basophils % (auto) 0.1 %; Eosinophils # (auto) 0.02 K/uL (0-0.5); Eosinophils % (auto) 0.2 %; Hematocrit (blood only) 34.9 % (42-52); Hemoglobin 10.9 g/dL (14.0-18.0); Immature Granulocytes # (auto) 0.04 K/uL (0.00-0.02); Immature Granulocytes % (auto) 0.4 %; Lymphocytes # (auto) 1.57 K/uL (1.2-3.4); Lymphocytes % (auto) 14.4 %; Mean Corpuscular Hgb Conc 31.2 g/dL (32-36); Mean Corpuscular Volume 99.1 fL (80-100); Mean Platelet Volume 10.4 fL (7.4-10.4); Monocytes # (auto) 1.03 K/uL (0.11-0.59); Monocytes % (auto) 9.5 %; Neutrophils % (auto) 75.4 %; Platelet Count 601 K/uL (130-400); RDW Coefficient of Variation 14.9 % (11.5-14.5); RDW Standard Deviation 53.7 fL (36.4-46.3); Red Blood Count 3.52 M/uL (4.7-6.1); White Blood Count 10.87 K/uL (4.8-10.8)
[2021-07-31 18:08] LABS: Albumin Level 2.3 gm/dl (3.4-5.0); BUN Creatinine Ratio 30.6 (10-20); Calcium 8.9 mg/dl (8.5-10.1); Creatinine Clr Calc Pharmacy 73.5 ml/min; Est GFR (African American) 85.7 ml/min; Est GFR (Non-African American) 73.9 ml/min; Potassium 3.8 mmol/L (3.5-5.1)
[2021-07-31 18:23] LABS: Albumin Globulin Ratio 0.7 (0.9-2); Bilirubin,Total 0.5 mg/dl (0.2-1); Globulin 3.3 gm/dl (2.5-4.0); Thyroid Stimulating Hormone 1.51 uIu/ml (0.300-4.500); Total Protein 5.6 gm/dl (6.4-8.2); Troponin I 0.058 ng/ml (0-0.045)
--- NOTE | 2021-07-31 18:25 | XRay Report ---
XR chest 1V portable CLINICAL HISTORY: weakness. Evaluate cardiopulmonary status COMPARISON STUDY: 07/14/2021 TECHNIQUE: 1 view of the chest FINDINGS: Single frontal view of the chest demonstrates the heart size to again be enlarged. Compared to the pr evious study, only small right pleural effusion remains present. The lungs are clear of alveolar opac ities. Old rib fractures are again seen on the right with scarring present. There is no evidence for left pleural effusion. There is no evidence for vascular congestion. There is no acute osseous pathol ogy. IMPRESSION: Small residual right pleural effusion. Otherwise, no acute chest disease. ACT 112: Negative or not required by law. Electronically signed by: Lucas Bai M.D. 07/31/2021 6:24 PM
--- NOTE | 2021-07-31 18:31 | XRay Report ---
XR KUB/Abdomen 1 view CLINICAL HISTORY: Abdominal pain. Reported constipation. COMPARISON STUDY: 04/17/2021 TECHNIQUE: 2 views of the abdomen. FINDINGS: The bowel gas pattern is within normal limits without evidence for dilatation or obstruction. No sign ificant fecal stasis or fecal impaction are identified. There is no evidence for organomegaly or hugh s intra-abdominal mass. No abnormal calcifications are seen along the course of the urinary tracts bi laterally. Radiotherapy seeds are seen within the prostate bed. No acute osseous pathology. IMPRESSION: 1.No acute intra-abdominal abnormality. ACT 112: Negative or not required by law. Electronically signed by: Lucas Bai M.D. 07/31/2021 6:30 PM
[2021-07-31 18:43] LABS: Appearance Urine Clear (Clear); Bilirubin Urine Negative (Negative); Blood Urine Negative (Negative); Color Urine Yellow; Glucose Urine UA Negative (Negative); Ketones Urine Negative (Negative); Leukocyte Esterase Urine Negative (Negative); Nitrite Urine Negative (Negative); Protein Urine Negative (Negative); Specific Gravity Urine 1.014 (1.000-1.030); Urobilinogen Urine Negative (Negative); pH Urine 8.5 (4.5-7.5)
--- NOTE | 2021-07-31 20:33 | History & Physical Report ---
Date of Service July 31, 2021 Assessment & Plan (1) Debilitated: Plan: Progressive generalized debilitation/general weakness and fatigue- Multifactorial: Recent COVID-19 infection, prolonged hospitalization, complicating underlying heart disease and COPD Consult PT/OT. (2) Weakness: Plan: See above (3) COVID-19: Plan: Patient initially tested positive for COVID-19 on 07/14, and is positive again this evening 07/31 Patient is back to his baseline oxygen status, and chest x-ray is much improved It does not appear that the patient is having active issues with COVID-19 at this time, but will require isolation per hospital protocol (4) Permanent atrial fibrillation: Plan: Atrial fibrillation/hypertension/CAD/HFpEF/mild aortic stenosis- INR mildly supratherapeutic at 2.9. Hold warfarin this evening, and recheck laboratories in a.m. Digoxin level normal at 1.3, and will continue dosing Continue diltiazem and metoprolol tartrate with hold parameters Continue furosemide and potassium (5) Dyslipidemia: Plan: Continue atorvastatin (6) CAD (coronary artery disease): Plan: See above (7) COPD (chronic obstructive pulmonary disease): (8) Chronic heart failure with preserved ejection fraction: Plan: See above (9) Aortic stenosis, mild: Plan: See above (10) Chronic hypoxemic respiratory failure: Plan: Continue nasal cannula 4 L oxygen, with target pulse ox 92% History of Present Illness Chief Complaint: The patient presents to the emergency department after continued progressive debilitation after discharge from the hospital 4 days ago, at which time he declined the option of going to inpatient rehab therapy, but has now reconsidere d. Primary Care Provider: JONATHAN Russo The patient is a 80-year-old male with past medical history including COPD, atrial fibrillation on chronic anticoagulation, prostatitis, prostate cancer, UTI, DVT history, history of acute renal insufficiency, dyslipidemia, sleep apnea, hypercholesterolemia, CAD, HFpEF, hypertension, and depression. He presently lives with his , whom he reports is in worse shape than he is. Patient was diagnosed with COVID-19 pneumonia on 07/14, had been previously admitted to the hospital from 06/21-06/27, and was then admitted from 07/14- 07/27. Upon discharge of 1215, he was advised to undergo rehab therapy, however, he wanted to go directly home. Since he has been at home, he uses been sitting in his chair, and has been too short of breath and to generally weak to be able to even get to the bathroom, and has been using a urinal instead. Significant laboratories: WBC 10.87, hemoglobin 10.9, hematocrit 34.9, platelets 601, glucose 121, troponin 0.058, albumin 2.3. Patient is COVID-19 positive this admission. The patient is chronically on 4 L nasal cannula, with pulse ox 96% in the ED Allergies Allergy/AdvReac Type Severity Reaction Status Date / Time acetazolamide Allergy Intermediate swelling Verified 07/31/21 19:21 [From [employer]] Home Medications Medication Instructions Recorded Confirmed Type multivitamin (Daily Multi-Vitamin) 1 tab PO QAM 04/11/21 07/31/21 History furosemide 80 mg tablet (Lasix) 80 mg PO QAM #30 tab 05/10/21 07/31/21 Rx atorvastatin 40 mg tablet 40 mg PO HS #30 tab 06/05/21 07/31/21 Rx diltiazem HCl 120 mg 120 mg PO QAM #30 cap 06/05/21 07/31/21 Rx capsule,extended release 24 hr tamsulosin 0.4 mg capsule (Flomax) 0.4 mg PO DAILY #30 cap 06/05/21 07/31/21 Rx BiPap Machine #1 06/27/21 07/31/21 Rx BiPap Machine #1 07/28/21 Rx BiPap Machine #1 07/28/21 07/31/21 Rx BiPap Supplies #1 07/28/21 07/31/21 Rx Hospital Bed Homecare (Hospital [facility]1 07/28/21 07/31/21 Rx Bed) Hospital Bed Homecare (Hospital #1 ea 07/28/21 07/31/21 Rx Bed) digoxin 125 mcg (0.125 mg) tablet 125 mcg PO [id number]@1600 #24 07/28/21 07/31/21 Rx (Digitek) tab metoprolol tartrate 100 mg tablet 100 mg PO BID #30 tab 07/28/21 07/31/21 Rx pantoprazole 40 mg tablet,delayed 40 mg PO BID #60 tab 07/28/21 07/31/21 Rx release potassium chloride 20 mEq 20 meq PO DAILY #60 tab 07/28/21 07/31/21 Rx tablet,extended release(part/cryst) (Klor-Con M) warfarin 4 mg tablet 0 mg PO UD 07/31/21 07/31/21 History Past Med/Surg History Medical History (Updated 08/01/21 @ 02:36 by Reji Brooke MD) (HFpEF) heart failure with preserved ejection fraction Aortic stenosis, mild CAD (coronary artery disease) Cancer of prostate Chronic hypoxemic respiratory failure COPD (chronic obstructive pulmonary disease) Depression DVT (deep venous thrombosis) Dyslipidemia Heart disease HTN (hypertension) Myocardial infarct Sleep apnea TIA (transient ischemic attack) Surgical History History of appendectomy Hx of tonsillectomy Hx of vasectomy Family History Family/Other Prostate cancer Myocardial infarction Denies family history of Ovarian cancer Breast cancer Colorectal cancer Social History Smoking Status: Former smoker Tobacco Type: Cigarettes Second Hand Exposure: No; Hx Alcohol Use: Yes Alcohol type: beer and hard liquor Alcohol Intake Frequency: 2-4 x/Month Hx Substance Use: No Preferred Language: Colombian Communication Ability: Effective [employer] 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 Beliefs That Will Affect Care: None marital status: Current Living Situation: Spouse Current Living Situation Comment: Pt states he lives at home with spouse current occupational status: retired Other Information That Helps Us Care for You: No Feels Safe at Home: Yes caffeine: Yes Dental Care, Regularly: No Physical Activity Frequency: Does not Exercise Seatbelt Use: always Sunscreen Use: No Assistive Devices: Cane, Denture - Upper, Denture - Lower, Oxygen - Continuous and Walker Review of Systems Review of Systems: The patient denies chest pain, palpitations, lower extremity swelling, sore throat, fevers, chills, sweats, nausea, vomiting, diarrhea , constipation, abdominal pain, pelvic pain, blood in urine or stool, dysuria, urinary frequency or urgency, memory loss, loss of consciousness, rash, abnormal bruising or bleeding, focal weakness, numbness or tingling in arms or legs, generalized arthralgias or myalgias, back or neck pain, or night sweats. The review of systems is otherwise negative other than for that already noted above, and at least 10 systems have been reviewed. Physical Exam Physical Exam: The patient is awake, alert and oriented 3, well developed and well nourished, normocephalic and atraumatic, lying in bed and in no acute distress. HEENT--PERRL, EOMI, mucous membranes and oropharynx mildly dry. Neck--supple. No JVD. No bruits. Thyroid normal, trachea midline, no adenopathy. Heart--normal S1 and S2. No murmurs, rubs or gallops. Lungs--overall diminished. No respiratory distress, no accessory muscle use. Abdomen--normal bowel sounds and soft. Nontender. Nondistended. Extremities--no cyanosis or clubbing. No edema. Dermatologic--normal skin turgor, normal color, no abnormal lymph nodes, no rash. Neurologic--cranial nerves II through XII grossly intact. Rheumatologic--normal range of motion. Psychiatric--normal affect. Results & Data Results & Data ([facility]) Vital Signs (Past 12 Hours) Vital Signs Temp Pulse Resp BP Pulse Ox 07/31/21 18:20 71 18 100 07/31/21 17:09 36.5 C 86 19 133/62 100 Laboratory Results Laboratory Results WBC 10.87 K/uL (4.8-10.8) H 07/31/21 17:40 RBC 3.52 M/uL (4.7-6.1) L 07/31/21 17:40 Hgb 10.9 g/dL (14.0-18.0) L 07/31/21 17:40 Hct 34.9 % (42-52) L 07/31/21 17:40 MCV 99.1 fL (80-100) 07/31/21 17:40 MCH 31.0 pg (25-34) 07/31/21 17:40 MCHC 31.2 g/dL (32-36) L 07/31/21 17:40 RDW Std Deviation 53.7 fL (36.4-46.3) H 07/31/21 17:40 RDW Coeff of Luciano 14.9 % (11.5-14.5) H 07/31/21 17:40 Plt Count 601 K/uL (130-400) H 07/31/21 17:40 MPV 10.4 fL (7.4-10.4) 07/31/21 17:40 Immature Gran % (Auto) 0.4 % 07/31/21 17:40 Neut % (Auto) 75.4 % 07/31/21 17:40 Lymph % (Auto) 14.4 % 07/31/21 17:40 [place] % (Auto) 9.5 % 07/31/21 17:40 Eos % (Auto) 0.2 % 07/31/21 17:40 Baso % (Auto) 0.1 % 07/31/21 17:40 Neut # (Auto) 8.20 K/uL (1.4-6.5) H 07/31/21 17:40 Lymph # (Auto) 1.57 K/uL (1.2-3.4) 07/31/21 17:40 [place] # (Auto) 1.03 K/uL (0.11-0.59) H 07/31/21 17:40 Eos # (Auto) 0.02 K/uL (0-0.5) 07/31/21 17:40 Baso # (Auto) 0.01 K/uL (0-0.2) 07/31/21 17:40 Immature Gran # (Auto) 0.04 K/uL (0.00-0.02) H 07/31/21 17:40 PT 26.9 Seconds (9.0-12.0) H 07/31/21 17:40 INR 2.9 (0.9-1.1) H 07/31/21 17:40 APTT 42.8 Seconds (21.0-31.0) H 07/31/21 17:40 PTT Ratio 1.6 07/31/21 17:40 Sodium 139 mmol/L (136-145) 07/31/21 17:40 Potassium 3.8 mmol/L (3.5-5.1) 07/31/21 17:40 Chloride 98 mmol/L (98-107) 07/31/21 17:40 Carbon Dioxide 37 mmol/L (21-32) H 07/31/21 17:40 Anion Gap 4.0 (3-11) 07/31/21 17:40 BUN 30 mg/dl (7-18) H 07/31/21 17:40 Creatinine 0.97 mg/dl (0.6-1.4) 07/31/21 17:40 Est Cr Clr Drug Dosing 73.5 ml/min 07/31/21 17:40 Est GFR ( Amer) 85.7 ml/min 07/31/21 17:40 Est GFR (Non-Af Amer) 73.9 ml/min 07/31/21 17:40 BUN/Creatinine Ratio 30.6 (10-20) H 07/31/21 17:40 Glucose 121 mg/dl (70-99) H 07/31/21 17:40 Calcium 8.9 mg/dl (8.5-10.1) 07/31/21 17:40 Total Bilirubin 0.5 mg/dl (0.2-1) 07/31/21 17:40 AST 17 U/L (15-37) 07/31/21 17:40 ALT 33 (12-78) 07/31/21 17:40 Alkaline Phosphatase 72 U/L (45-117) 07/31/21 17:40 Troponin I 0.058 ng/ml (0-0.045) H* 07/31/21 17:40 Total Protein 5.6 gm/dl (6.4-8.2) L 07/31/21 17:40 Albumin 2.3 gm/dl (3.4-5.0) L 07/31/21 17:40 Globulin 3.3 gm/dl (2.5-4.0) 07/31/21 17:40 Albumin/Globulin Ratio 0.7 (0.9-2) L 07/31/21 17:40 TSH 1.510 uIu/ml (0.300-4.500) 07/31/21 17:40 Urine Color Yellow 07/31/21 18:34 Urine Appearance Clear (Clear) 07/31/21 18:34 Urine pH 8.5 (4.5-7.5) H 07/31/21 18:34 Ur Specific [place] 1.014 (1.000-1.030) 07/31/21 18:34 Urine Protein Negative (Negative) 07/31/21 18:34 Urine Glucose (UA) Negative (Negative) 07/31/21 18:34 Urine Ketones Negative (Negative) 07/31/21 18:34 Urine Blood Negative (Negative) 07/31/21 18:34 Urine Nitrite Negative (Negative) 07/31/21 18:34 Urine Bilirubin Negative (Negative) 07/31/21 18:34 Urine Urobilinogen Negative (Negative) 07/31/21 18:34 Ur Leukocyte Esterase Negative (Negative) 07/31/21 18:34 Digoxin 1.3 ng/ml (0.8-2.0) 07/31/21 20:35 SARS-CoV-2, RNA, NAAT POSITIVE (NEGATIVE) A* 07/31/21 17:50 Impressions Chest X-Ray 07/31/21 17:13 XR chest 1V portable CLINICAL HISTORY: weakness. Evaluate cardiopulmonary status COMPARISON STUDY: 07/14/2021 TECHNIQUE: 1 view of the chest FINDINGS: Single frontal view of the chest demonstrates the heart size to again be enlarged. Compared to the previous study, only small right pleural effusion remains present. The lungs are clear of alveolar opacities. Old rib fractures are again seen on the right with scarring present. There is no evidence for left pleural effusion. There is no evidence for vascular congestion. There is no acute osseous pathology. IMPRESSION: Small residual right pleural effusion. Otherwise, no acute chest disease. ACT 112: Negative or not required by law. Electronically signed by: Lucas Bai M.D. 07/31/2021 6:24 PM KUB X-Ray 07/31/21 17:14 XR KUB/Abdomen 1 view CLINICAL HISTORY: Abdominal pain. Reported constipation. COMPARISON STUDY: 04/17/2021 TECHNIQUE: 2 views of the abdomen. FINDINGS: The bowel gas pattern is within normal limits without evidence for dilatation or obstruction. No significant fecal stasis or fecal impaction are identified. There is no evidence for organomegaly or gross intra-abdominal mass. No abnormal calcifications are seen along the course of the urinary tracts bilaterally. Radiotherapy seeds are seen within the prostate bed. No acute osseous pathology. IMPRESSION: 1.No acute intra-abdominal abnormality. ACT 112: Negative or not required by law. Electronically signed by: Lucas Bai M.D. 07/31/2021 6:30 PM Code Status & VTE Plan Code Status DNR/DNI VTE Prophylaxis Plan VTE Prophylaxis will be ordered: Yes PG Care Time/CCT Total # of Minutes Spent Total Time Spent with Patient: Total time spent is greater than 50% in coordination of care (as documented) at patient's floor/unit and/or counseling patient: Coding Level of Care Code 33575 Initial Inpt Care Lvl 3 Diagnoses Debilitated R53.81 Weakness R53.1 COVID-19 U07.1 Permanent atrial fibrillation I48.21 Dyslipidemia E78.5 CAD (coronary artery disease) I25.10 COPD (chronic obstructive pulmonary disease) J44.9 Chronic heart failure with preserved ejection fraction I50.32 Aortic stenosis, mild I35.0 Chronic hypoxemic respiratory failure J96.11
[2021-07-31 20:42] LABS: INR 2.9 (0.9-1.1); Partial Thromboplastin Ratio 1.6; Partial Thromboplastin Time 42.8 Seconds (21.0-31.0); Prothrombin Time 26.9 Seconds (9.0-12.0)
[2021-07-31] MEDS ORDERED: IPRATROPIUM BROMIDE/ALBUTEROL respimat INH INH SCH (22:01)
[2021-07-31] MEDS ORDERED: ACETAMINOPHEN 325 MG TAB PO PRN (22:01)
[2021-07-31] MEDS: ATORVASTATIN 40 MG TAB PO SCH (23:11)
[2021-07-31] MEDS: cefTRIAXone SODIUM 2,000 MG in DEXTROSE 5% 50 ML IV SCH (23:12)
[2021-07-31] MEDS: guaiFENesin 600 MG TABCR PO SCH (23:13)
[2021-07-31] MEDS: METOPROLOL TARTRATE 100 MG TAB PO SCH (23:13)
[2021-07-31] MEDS: PANTOprazole 40 MG TAB PO SCH (23:14)
[2021-08-01] MEDS: AZITHROMYCIN 500 MG in DEXTROSE 5% 250 ML IV SCH ×2 (00:03→23:26)
[2021-08-01 05:27] LABS: Basophils # (auto) 0.01 K/uL (0-0.2); Basophils % (auto) 0.1 %; Eosinophils # (auto) 0.06 K/uL (0-0.5); Eosinophils % (auto) 0.6 %; Hemoglobin 10.4 g/dL (14.0-18.0); Immature Granulocytes # (auto) 0.04 K/uL (0.00-0.02); Immature Granulocytes % (auto) 0.4 %; Lymphocytes % (auto) 16.9 %; Mean Corpuscular Hemoglobin 31.7 pg (25-34); Mean Corpuscular Hgb Conc 31.5 g/dL (32-36); Mean Corpuscular Volume 100.6 fL (80-100); Mean Platelet Volume 10.3 fL (7.4-10.4); Monocytes # (auto) 1.02 K/uL (0.11-0.59); Monocytes % (auto) 9.6 %; Neutrophils # (auto) 7.71 K/uL (1.4-6.5); Neutrophils % (auto) 72.4 %; Platelet Count 514 K/uL (130-400); RDW Standard Deviation 54.6 fL (36.4-46.3); Red Blood Count 3.28 M/uL (4.7-6.1); White Blood Count 10.64 K/uL (4.8-10.8)
[2021-08-01 05:56] LABS: BUN Creatinine Ratio 29.5 (10-20); Calcium 8.7 mg/dl (8.5-10.1); Creatinine Clr Calc Pharmacy 81.5 ml/min; Est GFR (African American) 95.1 ml/min; Est GFR (Non-African American) 82.1 ml/min; Potassium 3.3 mmol/L (3.5-5.1)
[2021-08-01 06:18] LABS: Albumin Globulin Ratio 0.6 (0.9-2); Bilirubin,Total 0.7 mg/dl (0.2-1); Globulin 3.3 gm/dl (2.5-4.0); Total Protein 5.3 gm/dl (6.4-8.2); Troponin I 0.051 ng/ml (0-0.045)
[2021-08-01] MEDS: MULTIVITAMIN TAB PO SCH (08:36)
[2021-08-01] MEDS: POTASSIUM CHLORIDE CRTAB 20 MEQ TABCR PO SCH (08:37)
[2021-08-01] MEDS: IPRATROPIUM BROMIDE HFA INHALER INH SCH ×4 (08:37→19:20)
[2021-08-01] MEDS: TAMSULOSIN HCL 0.4 MG CAP PO SCH (08:37)
[2021-08-01] MEDS: ALBUTEROL HFA 8 GM INHALER INH SCH ×4 (08:37→19:20)
[2021-08-01] MEDS: FUROSEMIDE 80 MG TAB PO SCH (08:37)
[2021-08-01] MEDS: METOPROLOL TARTRATE 100 MG TAB PO SCH ×2 (08:38→20:50)
[2021-08-01] MEDS: guaiFENesin 600 MG TABCR PO SCH ×2 (08:38→20:49)
[2021-08-01] MEDS ORDERED: dilTIAZem HCL 120 MG CAPCR PO SCH (09:00)
[2021-08-01] MEDS: PANTOprazole 40 MG TAB PO SCH ×2 (09:08→20:48)
--- NOTE | 2021-08-01 14:06 | Hospitalist Progress Note ---
Date of Service August 01, 2021 Assessment & Plan (1) Debilitated: Plan: Progressive generalized debilitation/general weakness and fatigue: Multifactorial: Recent COVID-19 infection, prolonged hospitalization, complicating underlying heart disease and COPD. - Consulted PT/OT; plan for placement. (2) Weakness: Plan: See above (3) COVID-19: Plan: Patient initially tested positive for COVID-19 on 07/14 and was positive again on 07/31. Patient is back to his baseline oxygen status, and chest x-ray is much improved. - Will continue isolation until 08/02 to complete 21 days per infection control. (4) Permanent atrial fibrillation: Plan: Atrial fibrillation/hypertension/CAD/HFpEF/mild aortic stenosis. - Continue digoxin - Continue home warfarin - Continue diltiazem and metoprolol tartrate with hold parameters - Continue furosemide and potassium (5) Dyslipidemia: Plan: - Continue atorvastatin (6) CAD (coronary artery disease): Plan: See above (7) COPD (chronic obstructive pulmonary disease): Plan: At baseline presently. - Continue home albuterol/ipratropium standing (8) Chronic heart failure with preserved ejection fraction: Plan: See above (9) Aortic stenosis, mild: Plan: See above (10) Chronic hypoxemic respiratory failure: Plan: - Continue nasal cannula 4 L oxygen, with target pulse ox 92%. Admission and Anticipated Discharge Date Admission Date: July 31, 2021 Subjective Reports some constipation. Reports no fevers/chills, chest pain, shortness of breath, abdominal pain, nausea, or vomiting. Physical Exam Constitutional: WD/WN, vitals as above Eyes: EOM intact bilaterally; no conjunctival abnormality ENMT: external ear and nose normal, oropharynx normal Neck: trachea midline, no thyromegaly normal visual inspection Respiratory: normal respiratory effort, lungs clear to auscultation no respiratory distress Cardiovascular: RRR, no murmur, no edema Gastrointestinal (Abdomen): Inspection/Auscultation: abdomen normal to inspection; abdomen not distended Musculoskeletal: no cyanosis or clubbing, extremities motor strength 5/5 Skin: no rashes, warm and dry Neurologic: moves all extremities and awake Psychiatric: Orientation: alert, oriented to person and cooperative Results & Data Results & Data ([facility]) Vital Signs (Past 12 Hours) Vital Signs Temp Pulse Pulse Pulse Resp BP Pulse Ox 08/01/21 11:32 75 18 120/54 L 99 08/01/21 10:58 74 18 97 08/01/21 08:47 81 20 98 08/01/21 08:03 70 20 140/72 99 08/01/21 04:15 36.5 C 59 L 15 150/83 H 97 08/01/21 03:10 60 15 97 PG Care Time/CCT Total # of Minutes Spent Total Time Spent with Patient: Total time spent is greater than 50% in coordination of care (as documented) at patient's floor/unit and/or counseling patient: Coding Level of Care Code 74531 Subseq Hosp Care Lvl 2 Diagnoses Debilitated R53.81 Weakness R53.1 COVID-19 U07.1 Permanent atrial fibrillation I48.21 Dyslipidemia E78.5 CAD (coronary artery disease) I25.10 COPD (chronic obstructive pulmonary disease) J44.9 Chronic heart failure with preserved ejection fraction I50.32 Aortic stenosis, mild I35.0 Chronic hypoxemic respiratory failure J96.11
[2021-08-01 15:18] LABS: INR 2.8 (0.9-1.1)
[2021-08-01] MEDS: WARFARIN SOD 4 MG TAB PO SCH (16:00)
[2021-08-01] MEDS: POLYETHYLENE (MIRALAX) 17 GM PACK PO SCH (16:00)
[2021-08-01] MEDS: ATORVASTATIN 40 MG TAB PO SCH (20:49)
[2021-08-01] MEDS: cefTRIAXone SODIUM 2,000 MG in DEXTROSE 5% 50 ML IV SCH (22:41)
[2021-08-02] MEDS ORDERED: LORazepam 0.5 MG/1 ML VIAL IV STA (01:33)
[2021-08-02 06:58] LABS: Basophils # (auto) 0.01 K/uL (0-0.2); Basophils % (auto) 0.1 %; Eosinophils # (auto) 0.02 K/uL (0-0.5); Eosinophils % (auto) 0.2 %; Hematocrit (blood only) 33.5 % (42-52); Hemoglobin 10.4 g/dL (14.0-18.0); Immature Granulocytes # (auto) 0.04 K/uL (0.00-0.02); Immature Granulocytes % (auto) 0.4 %; Lymphocytes # (auto) 1.78 K/uL (1.2-3.4); Lymphocytes % (auto) 16.4 %; Mean Platelet Volume 10.8 fL (7.4-10.4); Monocytes # (auto) 1.19 K/uL (0.11-0.59); Neutrophils # (auto) 7.81 K/uL (1.4-6.5); Neutrophils % (auto) 71.9 %; Platelet Count 448 K/uL (130-400); RDW Coefficient of Variation 15.3 % (11.5-14.5); RDW Standard Deviation 56.1 fL (36.4-46.3); Red Blood Count 3.35 M/uL (4.7-6.1); White Blood Count 10.85 K/uL (4.8-10.8)
[2021-08-02 07:21] LABS: INR 2.7 (0.9-1.1); Prothrombin Time 25.4 Seconds (9.0-12.0)
[2021-08-02] MEDS: ALBUTEROL HFA 8 GM INHALER INH SCH (07:25)
[2021-08-02] MEDS: IPRATROPIUM BROMIDE HFA INHALER INH SCH (07:26)
[2021-08-02 07:44] LABS: Albumin Globulin Ratio 0.6 (0.9-2); BUN Creatinine Ratio 23.4 (10-20); Bilirubin,Total 0.4 mg/dl (0.2-1); Calcium 8.7 mg/dl (8.5-10.1); Creatinine Clr Calc Pharmacy 71.8 ml/min; Est GFR (African American) 83.6 ml/min; Est GFR (Non-African American) 72.1 ml/min; Globulin 3.2 gm/dl (2.5-4.0); Potassium 3.9 mmol/L (3.5-5.1); Total Protein 5.2 gm/dl (6.4-8.2)
[2021-08-02] MEDS ORDERED: METOPROLOL TARTRATE 50 MG TAB PO SCH (09:00)
[2021-08-02] MEDS: MULTIVITAMIN TAB PO SCH (09:26)
[2021-08-02] MEDS: guaiFENesin 600 MG TABCR PO SCH ×2 (09:26→21:28)
[2021-08-02] MEDS: PANTOprazole 40 MG TAB PO SCH ×2 (09:26→21:27)
[2021-08-02] MEDS: POTASSIUM CHLORIDE CRTAB 20 MEQ TABCR PO SCH (09:27)
[2021-08-02] MEDS: FUROSEMIDE 80 MG TAB PO SCH (09:27)
[2021-08-02] MEDS: POLYETHYLENE (MIRALAX) 17 GM PACK PO SCH (09:27)
[2021-08-02] MEDS: TAMSULOSIN HCL 0.4 MG CAP PO SCH (09:27)
[2021-08-02] MEDS ORDERED: IPRATROPIUM BROMIDE HFA INHALER INH PRN (09:33)
[2021-08-02] MEDS ORDERED: ALBUTEROL HFA 8 GM INHALER INH PRN (09:33)
[2021-08-02] MEDS ORDERED: bisacodyL 10 MG SUPP PR STA (13:38)
--- NOTE | 2021-08-02 13:42 | Hospitalist Progress Note ---
Date of Service August 02, 2021 Assessment & Plan (1) Debilitated: Plan: Progressive generalized debilitation/general weakness and fatigue: Multifactorial: Recent COVID-19 infection, prolonged hospitalization, complicating underlying heart disease, and COPD. - Consulted PT/OT; plan for placement. (2) Weakness: Plan: See above (3) COVID-19: Plan: Patient initially tested positive for COVID-19 on 07/14 and was positive again on 07/31. Patient is back to his baseline oxygen status, and chest x-ray is much improved. - Finished isolation on 08/02 (4) Permanent atrial fibrillation: Plan: Atrial fibrillation/hypertension/CAD/HFpEF/mild aortic stenosis. Had episode of bradycardia (up to 3 sec pauses) on 08/01. - Hold home digoxin and diltiazem. - Continue home warfarin - INR was 2.7 on 08/02 - Restarted metoprolol at 50% dosing from home (50 mg PO BID) as HR returned to high normal (80 - 100 bpm) after holding all agents overnight. - Continue furosemide and potassium (5) Dyslipidemia: Plan: - Continue atorvastatin (6) CAD (coronary artery disease): Plan: See above (7) COPD (chronic obstructive pulmonary disease): Plan: At baseline presently. - Continue home albuterol/ipratropium standing (8) Chronic heart failure with preserved ejection fraction: Plan: See above (9) Aortic stenosis, mild: Plan: See above (10) Chronic hypoxemic respiratory failure: Plan: - Continue nasal cannula 4 L oxygen, with target pulse ox 92%. Admission and Anticipated Discharge Date Admission Date: July 31, 2021 Subjective Had episode of agitation requiring benzos last night. Now more alert though he slept most of the morning. Reports some constipation. Reports no fevers/chills, chest pain, shortness of breath, abdominal pain, nausea, or vomiting. Physical Exam Constitutional: WD/WN, vitals as above Eyes: EOM intact bilaterally; no conjunctival abnormality ENMT: external ear and nose normal, oropharynx normal Neck: trachea midline, no thyromegaly normal visual inspection Respiratory: normal respiratory effort, lungs clear to auscultation no respiratory distress Cardiovascular: RRR, no murmur, no edema Gastrointestinal (Abdomen): Inspection/Auscultation: abdomen normal to inspection; abdomen not distended Musculoskeletal: no cyanosis or clubbing, extremities motor strength 5/5 Skin: no rashes, warm and dry Neurologic: moves all extremities and awake Psychiatric: Orientation: alert, oriented to person and cooperative Results & Data Results & Data ([facility]) Vital Signs (Past 12 Hours) Vital Signs Temp Pulse Pulse Resp BP Pulse Ox 08/02/21 11:34 36.3 C L 81 21 113/50 L 88 L 08/02/21 09:35 48 L 08/02/21 07:36 36.5 C 76 22 126/56 L 94 08/02/21 07:26 62 18 96 08/02/21 04:11 36.8 C 53 L 20 111/69 90 PG Care Time/CCT Total # of Minutes Spent Total Time Spent with Patient: Total time spent is greater than 50% in coordination of care (as documented) at patient's floor/unit and/or counseling patient: Coding Level of Care Code 20404 Subseq Hosp Care Lvl 2 Diagnoses Debilitated R53.81 Weakness R53.1 COVID-19 U07.1 Permanent atrial fibrillation I48.21 Dyslipidemia E78.5 CAD (coronary artery disease) I25.10 COPD (chronic obstructive pulmonary disease) J44.9 Chronic heart failure with preserved ejection fraction I50.32 Aortic stenosis, mild I35.0 Chronic hypoxemic respiratory failure J96.11
[2021-08-02] MEDS: WARFARIN SOD 4 MG TAB PO SCH (16:20)
[2021-08-02] MEDS: METOPROLOL TARTRATE 1 MG/ML VIAL IV PRN (16:52)
[2021-08-02] MEDS ORDERED: METOPROLOL TARTRATE 25 MG TAB PO SCH (21:00)
[2021-08-02] MEDS: METOPROLOL TARTRATE 50 MG TAB PO SCH (21:26)
[2021-08-02] MEDS: ATORVASTATIN 40 MG TAB PO SCH (21:28)
[2021-08-02] MEDS: cefTRIAXone SODIUM 2,000 MG in DEXTROSE 5% 50 ML IV SCH (22:28)
[2021-08-02] MEDS: AZITHROMYCIN 500 MG in DEXTROSE 5% 250 ML IV SCH (23:14)
--- NOTE | 2021-08-03 05:51 | Electrocardiogram Report ---
Test Reason : Blood Pressure : / mmHG Vent. Rate : 069 BPM Atrial Rate : 092 BPM P-R Int : 000 ms QRS Dur : 106 ms QT Int : 386 ms P-R-T Axes : 000 -04 212 degrees QTc Int : 413 ms Atrial fibrillation Minimal voltage criteria for LVH, may be normal variant Abnormal ECG When compared with ECG of 25-JUL-2021 08:56, No significant change was found Confirmed by Lionel De La Cruz ([id number]) on 08/03/2021 5:50:53 AM Referred By: REFERRED SELF Confirmed By:Lionel De La Cruz
--- NOTE | 2021-08-03 06:24 | Electrocardiogram Report ---
Test Reason : Blood Pressure : / mmHG Vent. Rate : 081 BPM Atrial Rate : 120 BPM P-R Int : 000 ms QRS Dur : 108 ms QT Int : 350 ms P-R-T Axes : 000 012 212 degrees QTc Int : 406 ms Atrial fibrillation with premature ventricular or aberrantly conducted complexes Abnormal ECG When compared with ECG of 31-JUL-2021 17:43, T wave inversion no longer evident in Anterior leads Confirmed by Lionel De La Cruz ([id number]) on 08/03/2021 6:23:30 AM Referred By: REFERRED SELF Confirmed By:Lionel De La Cruz
[2021-08-03 06:39] LABS: Basophils # (auto) 0.01 K/uL (0-0.2); Basophils % (auto) 0.1 %; Eosinophils # (auto) 0.07 K/uL (0-0.5); Eosinophils % (auto) 0.7 %; Hematocrit (blood only) 32.1 % (42-52); Immature Granulocytes # (auto) 0.03 K/uL (0.00-0.02); Immature Granulocytes % (auto) 0.3 %; Lymphocytes # (auto) 1.83 K/uL (1.2-3.4); Lymphocytes % (auto) 17.2 %; Mean Corpuscular Hemoglobin 31.6 pg (25-34); Mean Corpuscular Hgb Conc 31.2 g/dL (32-36); Mean Corpuscular Volume 101.6 fL (80-100); Mean Platelet Volume 10.5 fL (7.4-10.4); Monocytes # (auto) 1.11 K/uL (0.11-0.59); Monocytes % (auto) 10.4 %; Neutrophils # (auto) 7.58 K/uL (1.4-6.5); Neutrophils % (auto) 71.3 %; Platelet Count 365 K/uL (130-400); RDW Coefficient of Variation 15.4 % (11.5-14.5); Red Blood Count 3.16 M/uL (4.7-6.1); White Blood Count 10.63 K/uL (4.8-10.8)
[2021-08-03 07:01] LABS: INR 2.5 (0.9-1.1); Prothrombin Time 23.9 Seconds (9.0-12.0)
[2021-08-03 07:13] LABS: Albumin Globulin Ratio 0.6 (0.9-2); Albumin Level 1.9 gm/dl (3.4-5.0); Bilirubin,Total 0.3 mg/dl (0.2-1); Calcium 8.9 mg/dl (8.5-10.1); Creatinine Clr Calc Pharmacy 77.5 ml/min; Est GFR (African American) 94.3 ml/min; Est GFR (Non-African American) 81.3 ml/min; Globulin 3.3 gm/dl (2.5-4.0); Total Protein 5.2 gm/dl (6.4-8.2)
[2021-08-03] MEDS: guaiFENesin 600 MG TABCR PO SCH ×2 (07:55→20:01)
[2021-08-03] MEDS: METOPROLOL TARTRATE 50 MG TAB PO SCH ×2 (07:56→20:01)
[2021-08-03] MEDS: FUROSEMIDE 80 MG TAB PO SCH (07:56)
[2021-08-03] MEDS: MULTIVITAMIN TAB PO SCH (07:56)
[2021-08-03] MEDS: PANTOprazole 40 MG TAB PO SCH ×2 (07:56→20:00)
[2021-08-03] MEDS: TAMSULOSIN HCL 0.4 MG CAP PO SCH (07:56)
[2021-08-03] MEDS: POTASSIUM CHLORIDE CRTAB 20 MEQ TABCR PO SCH (08:01)
[2021-08-03] MEDS: POLYETHYLENE (MIRALAX) 17 GM PACK PO SCH (08:01)
--- NOTE | 2021-08-03 10:52 | Electrocardiogram Report ---
Test Reason : Blood Pressure : / mmHG Vent. Rate : 062 BPM Atrial Rate : 092 BPM P-R Int : 000 ms QRS Dur : 110 ms QT Int : 416 ms P-R-T Axes : 000 -01 199 degrees QTc Int : 422 ms Atrial fibrillation Abnormal ECG When compared with ECG of 01-AUG-2021 10:08, Premature ventricular complexes are no longer Present Confirmed by Lionel De La Cruz ([id number]) on 08/03/2021 10:52:26 AM Referred By: REFERRED SELF Confirmed By:Lionel De La Cruz
--- NOTE | 2021-08-03 17:16 | Hospitalist Progress Note ---
Date of Service August 03, 2021 Assessment & Plan (1) Debilitated: Plan: Progressive generalized debilitation/general weakness and fatigue: Multifactorial: Recent COVID-19 infection, prolonged hospitalization, complicating underlying heart disease, and COPD. - Consulted PT/OT; plan for placement. 1) For left ankle pain, will get simple set of x-rays to start. No erythema or warmth to suggest gout or infection. 2) For dizziness, will get MRI. No recent brain imaging, and he reports dizziness that seems less postural. (2) Weakness: Plan: See above (3) COVID-19: Plan: Patient initially tested positive for COVID-19 on 07/14 and was positive again on 07/31. Patient is back to his baseline oxygen status, and chest x-ray is much improved. - Finished isolation on 08/02 - Admitting provider started ceftriaxone and azithromycin on admission. Lower concern for bacterial pneumonia with clear CXR and negative procalcitonin. Stop abx. (4) Permanent atrial fibrillation: Plan: Atrial fibrillation/hypertension/CAD/HFpEF/mild aortic stenosis. Had episode of bradycardia (up to 3 sec pauses) on 08/01. - Holding home digoxin and diltiazem. - Continue home warfarin - INR was 2.5 on 08/03 - Restarted metoprolol at 50% dosing from home (50 mg PO BID). Presently in normal rate. - Continue furosemide and potassium (5) Dyslipidemia: Plan: - Continue atorvastatin (6) CAD (coronary artery disease): Plan: See above (7) COPD (chronic obstructive pulmonary disease): Plan: At baseline presently. - Continue home albuterol/ipratropium standing (8) Chronic heart failure with preserved ejection fraction: Plan: See above (9) Aortic stenosis, mild: Plan: See above (10) Chronic hypoxemic respiratory failure: Plan: - Continue nasal cannula 4 L oxygen, with target pulse ox 92%. Admission and Anticipated Discharge Date Admission Date: July 31, 2021 Subjective Still reports difficulty with standing for multiple reasons. Left ankle pain; dizziness. Feels breathing is not good. Reports no fevers/chills, chest pain, abdominal pain, nausea, or vomiting. Physical Exam Constitutional: WD/WN, vitals as above Eyes: EOM intact bilaterally; no conjunctival abnormality ENMT: external ear and nose normal, oropharynx normal Neck: trachea midline, no thyromegaly normal visual inspection Respiratory: normal respiratory effort, lungs clear to auscultation no respiratory distress Cardiovascular: RRR, no murmur, no edema Gastrointestinal (Abdomen): Inspection/Auscultation: abdomen normal to inspection; abdomen not distended Musculoskeletal: no cyanosis or clubbing, extremities motor strength 5/5 Skin: no rashes, warm and dry Neurologic: moves all extremities and awake Psychiatric: Orientation: alert, oriented to person and cooperative Results & Data Results & Data ([facility]) Vital Signs (Past 12 Hours) Vital Signs Temp Pulse Pulse Pulse Resp BP Pulse Ox 08/03/21 16:08 36.5 C 69 22 103/56 L 94 08/03/21 16:03 36.4 C L 75 20 197/84 H 97 08/03/21 14:59 90 08/03/21 11:40 36.5 C 85 18 152/80 H 99 08/03/21 07:18 71 08/03/21 06:55 36.4 C L 74 20 134/55 L 94 PG Care Time/CCT Total # of Minutes Spent Total Time Spent with Patient: Total time spent is greater than 50% in coordination of care (as documented) at patient's floor/unit and/or counseling patient: Coding Level of Care Code 32351 Subseq Hosp Care Lvl 2 Diagnoses Debilitated R53.81 Weakness R53.1 COVID-19 U07.1 Permanent atrial fibrillation I48.21 Dyslipidemia E78.5 CAD (coronary artery disease) I25.10 COPD (chronic obstructive pulmonary disease) J44.9 Chronic heart failure with preserved ejection fraction I50.32 Aortic stenosis, mild I35.0 Chronic hypoxemic respiratory failure J96.11
[2021-08-03] MEDS: WARFARIN SOD 4 MG TAB PO SCH (17:39)
[2021-08-03] MEDS: ATORVASTATIN 40 MG TAB PO SCH (20:01)
--- NOTE | 2021-08-03 20:16 | XRay Report ---
XR foot LT 2V CLINICAL HISTORY: Left foot pain TECHNIQUE: 2 views of the left foot were obtained. Comparison: None available at the time of this dictation. FINDINGS: No fractures are present. The alignment is anatomic. There is deformity of multiple metatarsophalange al joints most prominently at the second and fifth digits. No soft tissue abnormality is identified. IMPRESSION: No evidence of acute abnormality. Chronic degenerative changes are seen with deformity of multiple me tatarsophalangeal joints. ACT 112: Negative or not required by law. Electronically signed by: Jeevan Acosta M.D. 08/03/2021 8:15 PM
[2021-08-04] MEDS ORDERED: LORazepam 1 MG TAB PO PRN (02:59)
[2021-08-04 06:35] LABS: Hematocrit (blood only) 32.3 % (42-52); Hemoglobin 9.8 g/dL (14.0-18.0); Mean Corpuscular Hemoglobin 31.4 pg (25-34); Mean Corpuscular Hgb Conc 30.3 g/dL (32-36); Mean Corpuscular Volume 103.5 fL (80-100); Mean Platelet Volume 10.4 fL (7.4-10.4); Platelet Count 309 K/uL (130-400); RDW Coefficient of Variation 15.5 % (11.5-14.5); RDW Standard Deviation 58.4 fL (36.4-46.3); Red Blood Count 3.12 M/uL (4.7-6.1); White Blood Count 8.34 K/uL (4.8-10.8)
[2021-08-04 06:46] LABS: INR 1.8 (0.9-1.1); Prothrombin Time 17.6 Seconds (9.0-12.0)
[2021-08-04 07:06] LABS: Calcium 8.7 mg/dl (8.5-10.1); Creatinine Clr Calc Pharmacy 92.8 ml/min; Est GFR (African American) 101.1 ml/min; Est GFR (Non-African American) 87.2 ml/min; Magnesium 2.4 mg/dl (1.8-2.4)
--- NOTE | 2021-08-04 07:24 | Hospitalist Progress Note ---
Date of Service August 04, 2021 Assessment & Plan (1) Debilitated: Plan: Progressive generalized debilitation/general weakness and fatigue: Multifactorial: Recent COVID-19 infection, prolonged hospitalization, complicating underlying heart disease, and COPD. - Consulted PT/OT; plan for placement. 1) For left ankle pain, will get simple set of x-rays to start. No erythema or warmth to suggest gout or infection. 2) For dizziness, pt refused MRI. No recent brain imaging, add low dose aspirin to regimen (2) Weakness: Plan: See above (3) COVID-19: Plan: Patient initially tested positive for COVID-19 on 07/14 and was positive again on 07/31. Patient is back to his baseline oxygen status, and chest x-ray is much improved. - Finished isolation on 08/02 - Admitting provider started ceftriaxone and azithromycin on admission. Lower concern for bacterial pneumonia with clear CXR and negative procalcitonin. Stop abx. (4) Permanent atrial fibrillation: Plan: Atrial fibrillation/hypertension/CAD/HFpEF/mild aortic stenosis. Had episode of bradycardia (up to 3 sec pauses) on 08/01. - Holding home digoxin and diltiazem. - Continue home warfarin - INR was 2.5 on 08/03 - Restarted metoprolol at 50% dosing from home (50 mg PO BID). Presently periodic high rates, did give additional digoxin 0.25 total dose today, bp limits increase in metoprolol, if need be may need amiodarone - Continue furosemide and potassium (5) Dyslipidemia: Plan: - Continue atorvastatin (6) CAD (coronary artery disease): Plan: See above (7) COPD (chronic obstructive pulmonary disease): Plan: At baseline presently. - Continue home albuterol/ipratropium standing (8) Chronic heart failure with preserved ejection fraction: Plan: See above (9) Aortic stenosis, mild: Plan: See above (10) Chronic hypoxemic respiratory failure: Plan: - Continue nasal cannula 4 L oxygen, with target pulse ox 92%. Admission and Anticipated Discharge Date Admission Date: July 31, 2021 Subjective pt now is reconsidering if he needs to go to a [facility], but is being picky in regard to were he wants to go Review of Systems Review of Systems: Mild distress and fatigue no headache, no visual changes no speech or swallowing issues no chest pain, pressure or palpitations baseline shortness of breath, cough or wheezes no abdominal pain, nausea or vomiting, diarrhea or constipation no dysuria, hematuria or frequency no focal joint pain or swelling no back pain, CVA tenderness or radicular pain no bruising, bleeding or rashes no focal signs of weakness or numbness or altered sensation no complaints of anxiety or depression.. Physical Exam Physical Exam: The patient appeared chronically ill and be debilitated Vital signs as documented. Head exam is normocephalic atraumatic Neck is without JVD, thyromegaly, or carotid bruits. Lungs are clear to auscultation, no focal loss of breath sounds Cardiac exam, Rhythm is regular.. No murmurs, rubs or gallops. Abdominal exam reveals normal bowel sounds, soft non tender, no masses Extremities are nonedematous and both pedal pulses are present Neurologic exam is alert and oriented, no focal loss of strength or sensation Skin is without bruises or rashes Psychologically is without concerns for anxiety or depression.. Results & Data Results & Data ([facility]) Vital Signs (Past 12 Hours) Vital Signs Temp Pulse Pulse Resp BP Pulse Ox Pulse Ox 08/04/21 03:55 97.3 F L 81 24 112/51 L 98 08/03/21 22:54 79 24 106/62 95 08/03/21 22:00 95 08/03/21 20:20 98.2 F 84 20 118/51 L 93 08/03/21 19:57 77 117/57 L 96 PG Care Time/CCT Total # of Minutes Spent Total Time Spent with Patient: Total time spent is greater than 50% in coordination of care (as documented) at patient's floor/unit and/or counseling patient: Coding Level of Care Code 60121 Subseq Hosp Care Lvl 3 Diagnoses Debilitated R53.81 Weakness R53.1 COVID-19 U07.1 Permanent atrial fibrillation I48.21 Dyslipidemia E78.5 CAD (coronary artery disease) I25.10 COPD (chronic obstructive pulmonary disease) J44.9 Chronic heart failure with preserved ejection fraction I50.32 Aortic stenosis, mild I35.0 Chronic hypoxemic respiratory failure J96.11
[2021-08-04] MEDS: METOPROLOL TARTRATE 1 MG/ML VIAL IV PRN (07:54)
[2021-08-04] MEDS: guaiFENesin 600 MG TABCR PO SCH ×2 (08:30→21:38)
[2021-08-04] MEDS: FUROSEMIDE 80 MG TAB PO SCH (08:30)
[2021-08-04] MEDS: PANTOprazole 40 MG TAB PO SCH ×2 (08:31→21:39)
[2021-08-04] MEDS: MULTIVITAMIN TAB PO SCH (08:31)
[2021-08-04] MEDS: METOPROLOL TARTRATE 50 MG TAB PO SCH ×2 (08:31→21:40)
[2021-08-04] MEDS: TAMSULOSIN HCL 0.4 MG CAP PO SCH (08:32)
[2021-08-04] MEDS: POLYETHYLENE (MIRALAX) 17 GM PACK PO SCH (08:34)
[2021-08-04] MEDS: POTASSIUM CHLORIDE CRTAB 20 MEQ TABCR PO SCH (08:34)
[2021-08-04] MEDS ORDERED: DIGOXIN 125 MCG in SYRINGE 9.5 ML IV STA (08:46)
[2021-08-04] MEDS: WARFARIN SOD 4 MG TAB PO SCH (16:52)
[2021-08-04] MEDS: ONDANSETRON INJ 2 MG/ML 2 ML VIAL IV PRN ×2 (16:55→21:48)
[2021-08-04] MEDS ORDERED: METOPROLOL TARTRATE 1 MG/ML VIAL IV PRN (17:44)
[2021-08-04] MEDS ORDERED: DIGOXIN 125 MCG in SYRINGE 9.5 ML IV ONE (17:45)
[2021-08-04] MEDS: ATORVASTATIN 40 MG TAB PO SCH (21:38)
--- NOTE | 2021-08-05 08:12 | Hospitalist Progress Note ---
Date of Service August 05, 2021 Assessment & Plan (1) Debilitated: Plan: Progressive generalized debilitation/general weakness and fatigue: Multifactorial: Recent COVID-19 infection, prolonged hospitalization, complicating underlying heart disease, and COPD. - Consulted PT/OT; plan for placement. left ankle pain, x-rays negative for fracture, clinically does not appear to be gout or infection. For dizziness, pt refused MRI. No recent brain imaging, add low dose aspirin to regimen (2) Weakness: Plan: See above (3) COVID-19: Plan: Patient initially tested positive for COVID-19 on 07/14 and was positive again on 07/31. Patient is back to his baseline oxygen status, and chest x-ray is much improved. - Finished isolation on 08/02 - Admitting provider started ceftriaxone and azithromycin on admission. Lower concern for bacterial pneumonia with clear CXR and negative procalcitonin. Stopped abx. (4) Permanent atrial fibrillation: Plan: Atrial fibrillation/hypertension/CAD/HFpEF/mild aortic stenosis. Had episode of bradycardia (up to 3 sec pauses) on 08/01. - Continue home warfarin - INR was 2.5 on 08/03 - Restarted metoprolol at 50% dosing from home (50 mg PO BID). Presently periodic high rates, did give additional digoxin 0.25 total dose today, started 0.125 daily with better rate control - Continue furosemide and potassium (5) Dyslipidemia: Plan: - Continue atorvastatin (6) CAD (coronary artery disease): Plan: See above (7) COPD (chronic obstructive pulmonary disease): Plan: At baseline presently. - Continue home albuterol/ipratropium standing (8) Chronic heart failure with preserved ejection fraction: Plan: See above (9) Aortic stenosis, mild: Plan: See above (10) Chronic hypoxemic respiratory failure: Plan: - Continue to titrate [place] oxygen Admission and Anticipated Discharge Date Admission Date: July 31, 2021 Subjective Pt has no new complaints or concerns, has had better heart rate control with restarting digoxin pt now is considering if he needs to go to a [facility], but is being picky in regard to were he wants to go as he feels some are not an option due to issues with his in the past Review of Systems Review of Systems: Mild distress and fatigue no headache, no visual changes no speech or swallowing issues no chest pain, pressure or palpitations baseline shortness of breath, cough or wheezes no abdominal pain, nausea or vomiting, diarrhea or constipation no dysuria, hematuria or frequency no focal joint pain or swelling no back pain, CVA tenderness or radicular pain no bruising, bleeding or rashes no focal signs of weakness or numbness or altered sensation no complaints of anxiety or depression.. Physical Exam Physical Exam: The patient appeared chronically ill and be debilitated Vital signs as documented. Head exam is normocephalic atraumatic Neck is without JVD, thyromegaly, or carotid bruits. Lungs are clear to auscultation, no focal loss of breath sounds Cardiac exam, Rhythm is regular.. No murmurs, rubs or gallops. Abdominal exam reveals normal bowel sounds, soft non tender, no masses Extremities are nonedematous and both pedal pulses are present Neurologic exam is alert and oriented, no focal loss of strength or sensation Skin is without bruises or rashes Psychologically is without concerns for anxiety or depression.. Results & Data Results & Data ([facility]) Vital Signs (Past 12 Hours) Vital Signs Temp Pulse Pulse Resp BP Pulse Ox 08/05/21 07:00 97.9 F 94 H 22 125/78 97 08/05/21 02:51 97.5 F L 67 18 134/70 98 08/05/21 00:00 73 08/04/21 22:00 98.4 F 95 H 20 128/58 L 98 08/04/21 21:44 98 H 129/66 PG Care Time/CCT Total # of Minutes Spent Total Time Spent with Patient: Total time spent is greater than 50% in coordination of care (as documented) at patient's floor/unit and/or counseling patient: Coding Level of Care Code 11993 Subseq Hosp Care Lvl 2 Diagnoses Debilitated R53.81 Weakness R53.1 COVID-19 U07.1 Permanent atrial fibrillation I48.21 Dyslipidemia E78.5 CAD (coronary artery disease) I25.10 COPD (chronic obstructive pulmonary disease) J44.9 Chronic heart failure with preserved ejection fraction I50.32 Aortic stenosis, mild I35.0 Chronic hypoxemic respiratory failure J96.11
[2021-08-05] MEDS: guaiFENesin 600 MG TABCR PO SCH ×2 (08:27→21:32)
[2021-08-05] MEDS: FUROSEMIDE 80 MG TAB PO SCH (08:27)
[2021-08-05] MEDS: MULTIVITAMIN TAB PO SCH (08:28)
[2021-08-05] MEDS: METOPROLOL TARTRATE 50 MG TAB PO SCH ×2 (08:28→21:32)
[2021-08-05] MEDS: PANTOprazole 40 MG TAB PO SCH ×2 (08:29→21:32)
[2021-08-05] MEDS: POLYETHYLENE (MIRALAX) 17 GM PACK PO SCH (08:29)
[2021-08-05] MEDS: TAMSULOSIN HCL 0.4 MG CAP PO SCH (08:30)
[2021-08-05] MEDS: POTASSIUM CHLORIDE CRTAB 20 MEQ TABCR PO SCH (08:32)
[2021-08-05] MEDS: ONDANSETRON INJ 2 MG/ML 2 ML VIAL IV PRN ×2 (11:54→16:32)
[2021-08-05] MEDS: WARFARIN SOD 4 MG TAB PO SCH (16:29)
[2021-08-05] MEDS: DIGOXIN 0.125 MG TAB PO SCH (16:29)
[2021-08-05] MEDS: ATORVASTATIN 40 MG TAB PO SCH (21:32)
[2021-08-06] MEDS: POLYETHYLENE (MIRALAX) 17 GM PACK PO SCH (09:11)
[2021-08-06] MEDS: POTASSIUM CHLORIDE CRTAB 20 MEQ TABCR PO SCH (09:13)
[2021-08-06] MEDS: FUROSEMIDE 80 MG TAB PO SCH (09:14)
[2021-08-06] MEDS: TAMSULOSIN HCL 0.4 MG CAP PO SCH (09:14)
[2021-08-06] MEDS: guaiFENesin 600 MG TABCR PO SCH ×2 (09:14→21:08)
[2021-08-06] MEDS: METOPROLOL TARTRATE 50 MG TAB PO SCH ×2 (09:14→21:07)
[2021-08-06] MEDS: PANTOprazole 40 MG TAB PO SCH ×2 (09:14→21:07)
[2021-08-06] MEDS: MULTIVITAMIN TAB PO SCH (09:15)
--- NOTE | 2021-08-06 13:59 | Hospitalist Progress Note ---
Date of Service August 06, 2021 Assessment & Plan (1) Debilitated: Plan: Progressive generalized debilitation/general weakness and fatigue: Multifactorial: Recent COVID-19 infection, prolonged hospitalization, complicating underlying heart disease, and COPD. - Consulted PT/OT; plan for placement. left ankle pain, x-rays negative for fracture, clinically does not appear to be gout or infection. For dizziness, pt refused MRI. No recent brain imaging, add low dose aspirin to regimen with cough concern for bronchitis with recent history of lung issues, will start doxycycline and check cxr (2) Weakness: Plan: See above (3) COVID-19: Plan: Patient initially tested positive for COVID-19 on 07/14 and was positive again on 07/31. Patient is back to his baseline oxygen status, and chest x-ray is much improved. - Finished isolation on 08/02 - Admitting provider started ceftriaxone and azithromycin on admission. Lower concern for bacterial pneumonia with clear CXR and negative procalcitonin. Stopped abx. (4) Permanent atrial fibrillation: Plan: Atrial fibrillation/hypertension/CAD/HFpEF/mild aortic stenosis. Had episode of bradycardia (up to 3 sec pauses) on 08/01. - Continue home warfarin - INR was 2.5 on 08/03 - Restarted metoprolol at 50% dosing from home (50 mg PO BID). Presently periodic high rates, did give additional digoxin 0.25 total dose today, started 0.125 daily with better rate control - Continue furosemide and potassium (5) Dyslipidemia: Plan: - Continue atorvastatin (6) CAD (coronary artery disease): Plan: See above (7) COPD (chronic obstructive pulmonary disease): Plan: At baseline presently. - Continue home albuterol/ipratropium standing possible bronchitis, check CXR start doxycycline (8) Chronic heart failure with preserved ejection fraction: Plan: See above (9) Aortic stenosis, mild: Plan: See above (10) Chronic hypoxemic respiratory failure: Plan: - Continue to titrate [place] oxygen Admission and Anticipated Discharge Date Admission Date: July 31, 2021 Subjective Pt now complaints of increased cough and brown productive sputum, has had better heart rate control with restarting digoxin pt now is considering if [facility] needs [facility], but is being picky in regard to were he wants to go as he feels some are not an option due to issues with his in the past Review of Systems Review of Systems: Mild distress and fatigue no headache, no visual changes no speech or swallowing issues no chest pain, pressure or palpitations baseline shortness of breath,now productive cough no abdominal pain, nausea or vomiting, diarrhea or constipation no dysuria, hematuria or frequency no focal joint pain or swelling no back pain, CVA tenderness or radicular pain no bruising, bleeding or rashes no focal signs of weakness or numbness or altered sensation no complaints of anxiety or depression.. Physical Exam Physical Exam: The patient appeared chronically ill and be debilitated Vital signs as documented. Head exam is normocephalic atraumatic Neck is without JVD, thyromegaly, or carotid bruits. Lungs are coarse but no focal loss of breath sounds Cardiac exam, Rhythm is regular.. No murmurs, rubs or gallops. Abdominal exam reveals normal bowel sounds, soft non tender, no masses Extremities are nonedematous and both pedal pulses are present Neurologic exam is alert and oriented, no focal loss of strength or sensation Skin is without bruises or rashes Psychologically is without concerns for anxiety or depression.. Results & Data Results & Data ([facility]) Vital Signs (Past 12 Hours) Vital Signs Temp Pulse Pulse Pulse Resp BP BP 08/06/21 10:48 97.5 F L 60 19 103/57 L 08/06/21 10:00 08/06/21 08:00 97 H 08/06/21 06:53 97.9 F 81 16 118/56 L 08/06/21 03:00 98.2 F 90 18 112/65 Pulse Ox Pulse Ox 08/06/21 10:48 96 08/06/21 10:00 94 08/06/21 08:00 08/06/21 06:53 97 08/06/21 03:00 97 PG Care Time/CCT Total # of Minutes Spent Total Time Spent with Patient: Total time spent is greater than 50% in coordination of care (as documented) at patient's floor/unit and/or counseling patient: Coding Level of Care Code 85429 Subseq Hosp Care Lvl 2 Diagnoses Debilitated R53.81 Weakness R53.1 COVID-19 U07.1 Permanent atrial fibrillation I48.21 Dyslipidemia E78.5 CAD (coronary artery disease) I25.10 COPD (chronic obstructive pulmonary disease) J44.9 Chronic heart failure with preserved ejection fraction I50.32 Aortic stenosis, mild I35.0 Chronic hypoxemic respiratory failure J96.11
--- NOTE | 2021-08-06 14:54 | XRay Report ---
XR chest 1V portable CLINICAL HISTORY: eval for pneumonia. COMPARISON STUDY: 07/31/2021 TECHNIQUE: 1 view of the chest FINDINGS: Single frontal view of the chest demonstrates the cardiomediastinal silhouette to be within normal li mits. The patient is now slightly rotated to the right with interval development of a confluent alveo lar opacity involving the right lower lobe. Findings are most characteristic of pneumonia. Left hemit horax is clear. There is also evidence of right pleural effusion. There is no evidence for vascular c ongestion. There is no acute osseous pathology. IMPRESSION: Interval development of right lower lobe opacity and small right pleural effusion suspici ous for the presence of pneumonia. ACT 112: Negative or not required by law. Electronically signed by: Lucas Bai M.D. 08/06/2021 2:53 PM
[2021-08-06] MEDS: DIGOXIN 0.125 MG TAB PO SCH (16:41)
[2021-08-06] MEDS: WARFARIN SOD 4 MG TAB PO SCH (16:42)
[2021-08-06] MEDS: ATORVASTATIN 40 MG TAB PO SCH (21:07)
[2021-08-06] MEDS: FAMOTIDINE 20 MG TAB PO SCH (21:32)
[2021-08-06] MEDS: DOXYCYCLINE HYCLATE 100 MG CAP PO SCH (21:32)
[2021-08-07 06:25] LABS: INR 1.8 (0.9-1.1); Prothrombin Time 17.4 Seconds (9.0-12.0)
[2021-08-07 06:58] LABS: Hematocrit (blood only) 34.5 % (42-52); Hemoglobin 10.1 g/dL (14.0-18.0); Mean Corpuscular Hemoglobin 31.1 pg (25-34); Mean Corpuscular Hgb Conc 29.3 g/dL (32-36); Mean Corpuscular Volume 106.2 fL (80-100); Mean Platelet Volume 10.3 fL (7.4-10.4); Platelet Count 229 K/uL (130-400); RDW Coefficient of Variation 15.2 % (11.5-14.5); RDW Standard Deviation 58.8 fL (36.4-46.3); Red Blood Count 3.25 M/uL (4.7-6.1); White Blood Count 6.88 K/uL (4.8-10.8)
[2021-08-07 06:59] LABS: Calcium 8.7 mg/dl (8.5-10.1); Creatinine Clr Calc Pharmacy 110.5 ml/min; Est GFR (African American) 108.6 ml/min; Est GFR (Non-African American) 93.7 ml/min; Potassium 4.1 mmol/L (3.5-5.1)
[2021-08-07] MEDS: guaiFENesin 600 MG TABCR PO SCH ×2 (08:10→20:09)
[2021-08-07] MEDS: FAMOTIDINE 20 MG TAB PO SCH ×2 (08:10→20:09)
[2021-08-07] MEDS: PANTOprazole 40 MG TAB PO SCH ×2 (08:11→20:09)
[2021-08-07] MEDS: DOXYCYCLINE HYCLATE 100 MG CAP PO SCH (08:11)
[2021-08-07] MEDS: FUROSEMIDE 80 MG TAB PO SCH (08:12)
[2021-08-07] MEDS: METOPROLOL TARTRATE 50 MG TAB PO SCH ×2 (08:12→20:09)
[2021-08-07] MEDS: TAMSULOSIN HCL 0.4 MG CAP PO SCH (08:12)
[2021-08-07] MEDS: POTASSIUM CHLORIDE CRTAB 20 MEQ TABCR PO SCH (08:17)
[2021-08-07] MEDS: ONDANSETRON INJ 2 MG/ML 2 ML VIAL IV PRN ×2 (08:17→20:09)
[2021-08-07] MEDS: POLYETHYLENE (MIRALAX) 17 GM PACK PO SCH (08:17)
[2021-08-07] MEDS: MULTIVITAMIN TAB PO SCH (08:29)
--- NOTE | 2021-08-07 10:32 | Hospitalist Progress Note ---
Date of Service August 07, 2021 Assessment & Plan (1) Debilitated: Plan: Progressive generalized debilitation/general weakness and fatigue: Multifactorial: Recent COVID-19 infection, prolonged hospitalization, complicating underlying heart disease, and COPD. - Consulted PT/OT; plan for placement. Case management consulted. - left ankle pain, x-rays negative for fracture, clinically does not appear to be gout or infection. - For dizziness, pt refused MRI. No recent brain imaging; however, this has been an ongoing complaint. Low dose aspirin added to regimen. (2) Right lower lobe pneumonia: Plan: - CXR demonstrated interval development of RLL opacity c/f PNA - Empirically started on Doxycycline, will d/c and start on Augmentin 875mg BID w/ meals - Sputum cx if able to produce - Scheduled Duonebs QID - Add mucolytics (3) Weakness: Plan: - See above (4) COVID-19: Plan: Patient initially tested positive for COVID-19 on 07/14 and was positive again on 07/31. Patient is back to his baseline oxygen status, and chest x-ray is much improved. - Finished isolation on 08/02 - Admitting provider started ceftriaxone and azithromycin on admission which was discontinued d/t normal CXR on admission (5) Permanent atrial fibrillation: Plan: Atrial fibrillation/hypertension/CAD/HFpEF/mild aortic stenosis. Had episode of bradycardia (up to 3 sec pauses) on 08/01. - Continue home warfarin - INR was 2.5 on 08/03 - Restarted metoprolol at 50% dosing from home (50 mg PO BID). Presently period ic high rates, did give additional digoxin 0.25 total dose today, started 0.125 daily with better rate control - Continue furosemide and potassium (6) Dyslipidemia: Plan: - Continue atorvastatin (7) CAD (coronary artery disease): Plan: See above (8) COPD (chronic obstructive pulmonary disease): Plan: At baseline presently. - Continue home albuterol/ipratropium standing - Now w/ RLL pneumonia, change Doxy to Augmentin (9) Chronic heart failure with preserved ejection fraction: Plan: - See above (10) Aortic stenosis, mild: Plan: - See above (11) Chronic hypoxemic respiratory failure: Plan: - Chronically wears 2.5L at home - At his baseline Admission and Anticipated Discharge Date Admission Date: July 31, 2021 Subjective Pt seen on daily rounds this morning. Pt continues to c/o cough with brown productive sputum. Heart rate controlled with restarting digoxin. Pt was recently hospitalized with COVID-19 and acute on chronic respiratory failure. A ttempted to get him to a SNF during that admission but pt adamantly refused and went home with his sister on 07/27 who had agreed to assist in his care. Pt now readmitted with debility on 07/31. Pt now is considering if he needs to go to a residential, but is being picky in regard to were he wants to go as he feels some are not an option due to issues with his in the past. Review of Systems Review of Systems: CONSTITUTIONAL: Denies weight loss/gain, fever and chills, fatigue, malaise, generalized weakness. HEENT: Denies changes in vision and hearing. RESPIRATORY: +SOB and cough. Denies wheezing. CV: Denies palpitations, CP, lower extremity edema, orthopnea, PND. GI: +nausea. Denies abdominal pain, vomiting and diarrhea. : Denies dysuria and urinary frequency, urgency, hesitancy. MUSCULOSKELETAL: Denies myalgia and joint pain. SKIN: Denies rash and pruritus. NEUROLOGICAL: Denies headache, syncope, focal weakness, numbness, tingling. PSYCHIATRIC: Denies recent changes in mood. Denies anxiety and depression. Physical Exam Physical Exam: GENERAL: 80 yo Well-developed, well-nourished elderly WM. NAD. LUNGS: Nonlabored. RLL fine crackles. No wheezes or rhonchi. CARDIOVASCULAR: Irregular rhythm w/ CVR. No JVD. ABDOMEN: Soft, NT. Normal BS x 4 quad. EXTREMITIES: No edema. Non-tender. Peripheral pulses +2/4. NEUROLOGIC: A&O x3. PSYCHIATRIC: Cooperative. Appropriate mood and affect. SKIN: Warm, dry, intact. No rashes or lesions. Results & Data Results & Data ([facility]) Vital Signs (Past 12 Hours) Vital Signs Temp Pulse Resp BP Pulse Ox 08/07/21 07:31 36.3 C L 72 16 133/70 97 08/06/21 22:51 36.8 C 83 16 118/59 L 99 Laboratory Results 08/07/21 05:49 08/07/21 05:49 Diagnostic Findings Chest X-Ray 08/06/21 14:00 XR chest 1V portable CLINICAL HISTORY: eval for pneumonia. COMPARISON STUDY: 07/31/2021 TECHNIQUE: 1 view of the chest FINDINGS: Single frontal view of the chest demonstrates the cardiomediastinal silhouette to be within normal limits. The patient is now slightly rotated to the right with interval development of a confluent alveolar opacity involving the right lower lobe. Findings are most characteristic of pneumonia. Left hemithorax is clear. There is also evidence of right pleural effusion. There is no evidence for vascular congestion. There is no acute osseous pathology. IMPRESSION: Interval development of right lower lobe opacity and small right pleural effusion suspicious for the presence of pneumonia. ACT 112: Negative or not required by law. Electronically signed by: Lucas Bai M.D. 08/06/2021 2:53 PM PG Care Time/CCT Total # of Minutes Spent Total Time Spent with Patient: Total time spent is greater than 50% in coordination of care (as documented) at patient's floor/unit and/or counseling patient: Coding Level of Care Code 66247 Subseq Hosp Care Lvl 2 Diagnoses Debilitated R53.81 Weakness R53.1 COVID-19 U07.1 Permanent atrial fibrillation I48.21 Dyslipidemia E78.5 CAD (coronary artery disease) I25.10 COPD (chronic obstructive pulmonary disease) J44.9 Chronic heart failure with preserved ejection fraction I50.32 Aortic stenosis, mild I35.0 Chronic hypoxemic respiratory failure J96.11 Right lower lobe pneumonia J18.9
[2021-08-07] MEDS: AMOXICILLIN/CLAVULANATE 875 MG TAB PO SCH ×2 (10:35→16:14)
[2021-08-07] MEDS: ALBUT/IPRATROP 3MG/0.5MG NEB 3 ML VIAL NEB SCH ×3 (11:03→21:04)
[2021-08-07] MEDS: CALCIUM CARBONATE 500 MG CHEWABLE TAB PO PRN ×2 (12:38→20:09)
[2021-08-07] MEDS: WARFARIN SOD 4 MG TAB PO SCH (16:14)
[2021-08-07] MEDS: DIGOXIN 0.125 MG TAB PO SCH (16:14)
[2021-08-07] MEDS: ATORVASTATIN 40 MG TAB PO SCH (20:09)
[2021-08-07] MEDS ORDERED: guaiFENesin 600 MG TABCR PO SCH (21:00)
[2021-08-08] MEDS: ONDANSETRON INJ 2 MG/ML 2 ML VIAL IV PRN ×2 (07:15→15:07)
[2021-08-08] MEDS: ALBUT/IPRATROP 3MG/0.5MG NEB 3 ML VIAL NEB SCH (07:28)
[2021-08-08] MEDS ORDERED: ALBUT/IPRATROP 3MG/0.5MG NEB 3 ML VIAL NEB PRN (07:43)
[2021-08-08] MEDS: AMOXICILLIN/CLAVULANATE 875 MG TAB PO SCH ×2 (08:13→17:01)
[2021-08-08] MEDS: METOPROLOL TARTRATE 50 MG TAB PO SCH ×2 (08:14→19:59)
[2021-08-08] MEDS: guaiFENesin 600 MG TABCR PO SCH ×2 (08:14→19:59)
[2021-08-08] MEDS: PANTOprazole 40 MG TAB PO SCH ×2 (08:14→19:58)
[2021-08-08] MEDS: FUROSEMIDE 80 MG TAB PO SCH (08:14)
[2021-08-08] MEDS: FAMOTIDINE 20 MG TAB PO SCH ×2 (08:14→20:00)
[2021-08-08] MEDS: TAMSULOSIN HCL 0.4 MG CAP PO SCH (08:15)
[2021-08-08] MEDS: POLYETHYLENE (MIRALAX) 17 GM PACK PO SCH (08:16)
[2021-08-08] MEDS: MULTIVITAMIN TAB PO SCH (10:14)
[2021-08-08] MEDS: POTASSIUM CHLORIDE CRTAB 20 MEQ TABCR PO SCH (10:14)
--- NOTE | 2021-08-08 11:28 | Hospitalist Progress Note ---
Date of Service August 08, 2021 Assessment & Plan (1) Debilitated: Plan: Progressive generalized debilitation/general weakness and fatigue: Multifactorial: Recent COVID-19 infection, prolonged hospitalization, complicating underlying heart disease, and COPD. - Consulted PT/OT; plan for placement. Case management consulted. - left ankle pain, x-rays negative for fracture, clinically does not appear to be gout or infection. - For dizziness, pt refused MRI. No recent brain imaging; however, this has been an ongoing complaint. Low dose aspirin added to regimen. (2) Right lower lobe pneumonia: Plan: - CXR demonstrated interval development of RLL opacity c/f PNA - Empirically started Augmentin 875mg BID w/ meals on 08/07 - Sputum cx if able to produce - Scheduled Duonebs have been changed to PRN - Continue mucolytics (3) Weakness: Plan: - See above (4) COVID-19: Plan: Patient initially tested positive for COVID-19 on 07/14 and was positive again on 07/31. Patient is back to his baseline oxygen status, and chest x-ray is much improved. - Finished isolation on 08/02 - Admitting provider started ceftriaxone and azithromycin on admission which was discontinued d/t normal CXR on admission (5) Permanent atrial fibrillation: Plan: Atrial fibrillation/hypertension/CAD/HFpEF/mild aortic stenosis. Had episode of bradycardia (up to 3 sec pauses) on 08/01. - Continue home warfarin - INR was 2.5 on 08/03 - Restarted metoprolol at 50% dosing from home (50 mg PO BID). Presently periodic high rates, did give additional digoxin 0.25 total dose today, started 0.125 daily with better rate control - Continue furosemide and potassium (6) Dyslipidemia: Plan: - Continue atorvastatin (7) CAD (coronary artery disease): Plan: See above (8) COPD (chronic obstructive pulmonary disease): Plan: At baseline presently. - Continue home albuterol/ipratropium standing (9) Chronic heart failure with preserved ejection fraction: Plan: - See above (10) Aortic stenosis, mild: Plan: - See above (11) Chronic hypoxemic respiratory failure: Plan: - Chronically wears 2.5L at home - At his baseline Plan: Continue interventions as above Case management on board for discharge planning --> SNF w/ rehab Admission and Anticipated Discharge Date Admission Date: July 31, 2021 Subjective Pt seen on daily rounds this morning. Pt continues to state that his breathing is "terrible." RT messaged me this morning that he refused his neb treatment. Heart rate has been controlled since restarting digoxin. Pt was recently hospitalized with COVID-19 and acute on chronic respiratory failure. Attempted to get him to a SNF during that admission but pt adamantly refused and went home with his sister on 07/27 who had agreed to assist in his care. Pt now readmitted with debility on 07/31. Pt now is considering if he needs to go to a [facility], but is being picky in regard to were he wants to go as he feels some are not an option due to issues with his in the past. Review of Systems Review of Systems: CONSTITUTIONAL: Denies weight loss/gain, fever and chills, fatigue, malaise, generalized weakness. HEENT: Denies changes in vision and hearing. RESPIRATORY: +SOB and cough. Denies wheezing. CV: Denies palpitations, CP, lower extremity edema, orthopnea, PND. GI: +nausea. Denies abdominal pain, vomiting and diarrhea. : Denies dysuria and urinary frequency, urgency, hesitancy. MUSCULOSKELETAL: Denies myalgia and joint pain. SKIN: Denies rash and pruritus. NEUROLOGICAL: Denies headache, syncope, focal weakness, numbness, tingling. PSYCHIATRIC: Denies recent changes in mood. Denies anxiety and depression. Physical Exam Physical Exam: GENERAL: 80 yo Well-developed, well-nourished elderly WM. NAD. LUNGS: Nonlabored. CTAB. No wheezes or rhonchi. CARDIOVASCULAR: Irregular rhythm w/ CVR. No JVD. ABDOMEN: Soft, NT. Normal BS x 4 quad. EXTREMITIES: No edema. Non-tender. Peripheral pulses +2/4. NEUROLOGIC: A&O x3. PSYCHIATRIC: Cooperative. Appropriate mood and affect. SKIN: Warm, dry, intact. No rashes or lesions. Results & Data Results & Data ([facility]) Vital Signs (Past 12 Hours) Vital Signs Temp Pulse Resp BP Pulse Ox 08/08/21 07:44 36.4 C L 73 16 127/73 93 PG Care Time/CCT Total # of Minutes Spent Total Time Spent with Patient: Total time spent is greater than 50% in coordination of care (as documented) at patient's floor/unit and/or counseling patient: Coding Level of Care Code 76634 Subseq Hosp Care Lvl 1 Diagnoses Debilitated R53.81 Right lower lobe pneumonia J18.9 Weakness R53.1 COVID-19 U07.1 Permanent atrial fibrillation I48.21 Dyslipidemia E78.5 CAD (coronary artery disease) I25.10 COPD (chronic obstructive pulmonary disease) J44.9 Chronic heart failure with preserved ejection fraction I50.32 Aortic stenosis, mild I35.0 Chronic hypoxemic respiratory failure J96.11
[2021-08-08] MEDS: DIGOXIN 0.125 MG TAB PO SCH (17:00)
[2021-08-08] MEDS: WARFARIN SOD 4 MG TAB PO SCH (17:01)
[2021-08-08] MEDS: ATORVASTATIN 40 MG TAB PO SCH (19:58)
[2021-08-09 07:52] LABS: Hematocrit (blood only) 34.7 % (42-52); Hemoglobin 10.6 g/dL (14.0-18.0); Mean Corpuscular Hemoglobin 31.5 pg (25-34); Mean Corpuscular Hgb Conc 30.5 g/dL (32-36); Mean Corpuscular Volume 103.3 fL (80-100); Mean Platelet Volume 10.1 fL (7.4-10.4); Platelet Count 192 K/uL (130-400); RDW Coefficient of Variation 15.3 % (11.5-14.5); RDW Standard Deviation 57.3 fL (36.4-46.3); Red Blood Count 3.36 M/uL (4.7-6.1); White Blood Count 5.77 K/uL (4.8-10.8)
[2021-08-09] MEDS: AMOXICILLIN/CLAVULANATE 875 MG TAB PO SCH (07:54)
[2021-08-09] MEDS: ONDANSETRON INJ 2 MG/ML 2 ML VIAL IV PRN (07:59)
[2021-08-09 08:27] LABS: BUN Creatinine Ratio 24.2 (10-20); Calcium 9.5 mg/dl (8.5-10.1); Creatinine Clr Calc Pharmacy 101.3 ml/min; Est GFR (African American) 105.3 ml/min; Est GFR (Non-African American) 90.8 ml/min; Potassium 3.9 mmol/L (3.5-5.1)
[2021-08-09] MEDS: POLYETHYLENE (MIRALAX) 17 GM PACK PO SCH (09:44)
[2021-08-09] MEDS: PANTOprazole 40 MG TAB PO SCH (09:45)
[2021-08-09] MEDS: METOPROLOL TARTRATE 50 MG TAB PO SCH (09:45)
[2021-08-09] MEDS: TAMSULOSIN HCL 0.4 MG CAP PO SCH (09:45)
[2021-08-09] MEDS: guaiFENesin 600 MG TABCR PO SCH (09:45)
[2021-08-09] MEDS: FAMOTIDINE 20 MG TAB PO SCH (09:45)
[2021-08-09] MEDS: FUROSEMIDE 80 MG TAB PO SCH (09:46)
[2021-08-09] MEDS: MULTIVITAMIN TAB PO SCH (09:46)
[2021-08-09] MEDS: POTASSIUM CHLORIDE CRTAB 20 MEQ TABCR PO SCH (09:52)
[2021-08-09] MEDS ORDERED: PROCHLORPERAZINE 10 MG in SYRINGE 4 ML IV PRN (11:17)
--- NOTE | 2021-08-09 12:58 | Discharge Summary ---
Date of Service August 09, 2021 Admission HPI Per Admitting Provider The patient is a 80-year-old male with past medical history including COPD, atrial fibrillation on chronic anticoagulation, prostatitis, prostate cancer, UTI, DVT history, history of acute renal insufficiency, dyslipidemia, sleep apnea, hypercholesterolemia, CAD, HFpEF, hypertension, and depression. He presently lives with his , whom he reports is in worse shape than he is. Patient was diagnosed with COVID-19 pneumonia on 07/14, had been previously admitted to the hospital from 06/21-06/27, and was then admitted from 07/14- 07/27. Upon discharge of 1215, he was advised to undergo rehab therapy, however, he wanted to go directly home. Since he has been at home, he uses been sitting in his chair, and has been too short of breath and to generally weak to be able to even get to the bathroom, and has been using a urinal instead. Significant laboratories: WBC 10.87, hemoglobin 10.9, hematocrit 34.9, platelets 601, glucose 121, troponin 0.058, albumin 2.3. Patient is COVID-19 positive this admission. The patient is chronically on 2.5 L nasal cannula, with pulse ox 96% in the ED Principal Diagnosis 1. Debility 2. RLL pneumonia 3. Recent COVID-19 infection Discharge Exam GENERAL: 80 yo Well-developed, well-nourished elderly WM. NAD. LUNGS: Nonlabored. CTAB. No wheezes or rhonchi. CARDIOVASCULAR: Irregular rhythm w/ CVR. No JVD. ABDOMEN: Soft, NT. Normal BS x 4 quad. EXTREMITIES: No edema. Non-tender. Peripheral pulses +2/4. NEUROLOGIC: A&O x3. PSYCHIATRIC: Cooperative. Appropriate mood and affect. SKIN: Warm, dry, intact. No rashes or lesions. Discharge Data Allergies Allergy/AdvReac Type Severity Reaction Status Date / Time acetazolamide Allergy Intermediate swelling Verified 07/31/21 19:21 [From Diamox [employer]els] Consultations None Procedures Performed None Ordered Studies Chest X-Ray 07/31/21 17:13 XR chest 1V portable CLINICAL HISTORY: weakness. Evaluate cardiopulmonary status COMPARISON STUDY: 07/14/2021 TECHNIQUE: 1 view of the chest FINDINGS: Single frontal view of the chest demonstrates the heart size to again be enlarged. Compared to the previous study, only small right pleural effusion r emains present. The lungs are clear of alveolar opacities. Old rib fractures are again seen on the right with scarring present. There is no evidence for left pleural effusion. There is no evidence for vascular congestion. There is no acute osseous pathology. IMPRESSION: Small residual right pleural effusion. Otherwise, no acute chest disease. ACT 112: Negative or not required by law. Electronically signed by: Lucas Bai M.D. 07/31/2021 6:24 PM KUB X-Ray 07/31/21 17:14 XR KUB/Abdomen 1 view CLINICAL HISTORY: Abdominal pain. Reported constipation. COMPARISON STUDY: 04/17/2021 TECHNIQUE: 2 views of the abdomen. FINDINGS: The bowel gas pattern is within normal limits without evidence for dilatation or obstruction. No significant fecal stasis or fecal impaction are identified. There is no evidence for organomegaly or gross intra-abdominal mass. No abnormal calcifications are seen along the course of the urinary tracts bilaterally. Ra diotherapy seeds are seen within the prostate bed. No acute osseous pathology. IMPRESSION: 1.No acute intra-abdominal abnormality. ACT 112: Negative or not required by law. Electronically signed by: Lucas Bai M.D. 07/31/2021 6:30 PM Foot X-Ray 08/03/21 17:16 XR foot LT 2V CLINICAL HISTORY: Left foot pain TECHNIQUE: 2 views of the left foot were obtained. Comparison: None available at the time of this dictation. FINDINGS: No fractures are present. The alignment is anatomic. There is deformity of multiple metatarsophalangeal joints most prominently at the second and fifth digits. No soft tissue abnormality is identified. IMPRESSION: No evidence of acute abnormality. Chronic degenerative changes are seen with deformity of multiple metatarsophalangeal joints. ACT 112: Negative or not required by law. Electronically signed by: Jeevan Acosta M.D. 08/03/2021 8:15 PM Chest X-Ray 08/06/21 14:00 XR chest 1V portable CLINICAL HISTORY: eval for pneumonia. COMPARISON STUDY: 07/31/2021 TECHNIQUE: 1 view of the chest FINDINGS: Single frontal view of the chest demonstrates the cardiomediastinal silhouette to be within normal limits. The patient is now slightly rotated to the right wit h interval development of a confluent alveolar opacity involving the right lower lobe. Findings are most characteristic of pneumonia. Left hemithorax is clear. There is also evidence of right pleural effusion. There is no evidence for vascular congestion. There is no acute osseous pathology. IMPRESSION: Interval development of right lower lobe opacity and small right pleural effusion suspicious for the presence of pneumonia. ACT 112: Negative or not required by law. Electronically signed by: Lucas Bai M.D. 08/06/2021 2:53 PM 08/09/21 07:41 08/09/21 07:41 Hospital Course (1) Debilitated: Progressive generalized debilitation/general weakness and fatigue: Multifactorial: Recent COVID-19 infection, prolonged hospitalization, complicating underlying heart disease, and COPD. - Consulted PT/OT; plan for placement. Case management consulted. - left ankle pain, x-rays negative for fracture, clinically does not appear to be gout or infection. - For dizziness, pt refused MRI. No recent brain imaging; however, this has been an ongoing complaint. Low dose aspirin added to regimen. (2) Right lower lobe pneumonia: - CXR demonstrated interval development of RLL opacity c/f PNA - Empirically started Augmentin 875mg BID w/ meals on 08/07 - Sputum cx ordered but not collected - Scheduled Duonebs have been changed to PRN - Continue mucolytics (3) Weakness: - See above (4) COVID-19: Patient initially tested positive for COVID-19 on 07/14 and was positive again on 07/31. Patient is back to his baseline oxygen status, and chest x-ray is much improved. - Finished isolation on 08/02 - Admitting provider started ceftriaxone and azithromycin on admission which was discontinued d/t normal CXR on admission (5) Permanent atrial fibrillation: Atrial fibrillation/hypertension/CAD/HFpEF/mild aortic stenosis. Had episode of bradycardia (up to 3 sec pauses) on 08/01. - Continue home warfarin - INR was 2.5 on 08/03 - Restarted metoprolol at 50% dosing from home (50 mg PO BID). Presently periodic high rates, did give additional digoxin 0.25 total dose today, started 0.125 daily with better rate control - Continue furosemide and potassium (6) Dyslipidemia: - Continue atorvastatin (7) CAD (coronary artery disease): See above (8) COPD (chronic obstructive pulmonary disease): At baseline presently. - Continue home albuterol/ipratropium standing (9) Chronic heart failure with preserved ejection fraction: - See above (10) Aortic stenosis, mild: - See above (11) Chronic hypoxemic respiratory failure: - Chronically wears 2.5L at home - At his baseline Patient is medically stable for discharge to SNF. Notified by Case management that a bed is available at [facility] and they are able to take the patient today. Will continue Augmentin x 4 more days (will also require a dose this evening 08/09) for his RLL pneumonia. Also rx Compazine to use as needed for nausea (this has been ongoing the last couple days and could be d/t the antibiotic). Recommend daily Total Time Total Time Spent Total Time Spent (In Minutes): >30 minutes Discharge Plan Discharge Items Patient Disposition: Transfer Detention [facility] Reason For Visit: LLE CELLULITIS, ELEVATED TROP, COVID-19, SACRAL DE Discharge Diagnosis: Debility/weakness pneumonia Condition on Discharge: Fair Activity: Per Instructions section Activity Comment: As tolerated w/ assistance of staff at SNF Non-emergency contact: Primary Care Provider Call non-emergency contact if: you have any medication questions Follow-up/Referrals: Andie Peace CRNP [Primary Care Provider] - Diet: Regular and Low Sodium (2gm) Addtl Attending Provider Instructions: 1. Take all medications as directed. 2. Complete course of Augmentin for pneumonia. 3. Use oxygen - 2.5L continuously 4. You were previously active with hospice prior to admission, uncertain if you want to resume these services at the senior living. If this is the case, this would need to be arranged by the house physician at the long-term [facility]. 5. Therapy services will work with you at the senior living. 6. The house provider at [place] should follow up to evaluate you in the next 48-72 hours. 7. Would advise rechecking a PT/INR (which determines if your Coumadin is at the right dose) at the long-term facility in the next 48 hours. Pending Studies at Discharge: No Stand-Alone Forms: My [facility] Skilled Items Patient informed of condition?: Yes DNR: Yes Discharge Level of Care: Skilled Communicable Disease: No Discharge Prognosis: Stable Lines: None Urinary Catheter: No Medications and DC Order Prescriptions: New metoprolol tartrate 50 mg Tablet 50 mg PO BID Qty: 60 RF: 0 amoxicillin-pot clavulanate [Augmentin] 875-125 mg Tablet 1 tab PO BIDM Qty: 9 RF: 0 prochlorperazine maleate [Compazine] 10 mg tablet 10 mg PO TID PRN (Reason: nausea and vomiting) Qty: 20 RF: 0 Continued furosemide [Lasix] 80 mg tablet 80 mg PO QAM Qty: 30 RF: 3 atorvastatin 40 mg tablet 40 mg PO HS Qty: 30 RF: 5 tamsulosin [Flomax] 0.4 mg capsule 0.4 mg PO DAILY Qty: 30 RF: 2 pantoprazole 40 mg tablet,delayed release (DR/EC) 40 mg PO BID Qty: 60 RF: 5 potassium chloride [Klor-Con M20] 20 mEq tablet,ER particles/crystals 20 meq PO DAILY Qty: 60 RF: 5 digoxin [Digitek] 125 mcg (0.125 mg) tablet 125 mcg PO [id number] Qty: 24 RF: 5 warfarin 4 mg tablet 0 mg PO UD RF: 0 Discontinued diltiazem HCl 120 mg capsule,extended release 24hr 120 mg PO QAM Qty: 30 RF: 5 metoprolol tartrate 100 mg tablet 100 mg PO BID Qty: 30 RF: 5 (DME) Hospital Bed Misc See Rx Instructions .ROUTE Qty: 1 RF: 0 (DME) BiPap Machine Misc See Rx Instructions .ROUTE Qty: 1 RF: 0 (DME) BiPap Supplies Misc See Rx Instructions .ROUTE Qty: 1 RF: 0 (DME) BiPap Machine Misc See Rx Instructions .Route Qty: 1 RF: 0 (DME) Hospital Bed Misc See Rx Instructions .Route Qty: 1 RF: 0 multivitamin [Daily Multi-Vitamin] tablet 1 tab PO QAM RF: 0 (DME) BiPap Machine Misc See Rx Instructions .ROUTE Qty: 1 RF: 0 Discharge Orders: Discharge Order (Routine); Ordered 08/09/21 Ordered By: Polina Chen Admission Data Admit Date/Time: 07/31/21 20:32 Attending Provider: Jeevan Bain Admit Provider: Reji Brooke Primary Care Provider: Andie Peace Other Providers: Gary Garay ; [facility] ; [facility] ; [facility] ; Reji Brooke Other Interventions: Discharge Summary Assessment (RN) Last Done: 08/09/21 16:13 Supervising Physician Co-Signing Physician Notes Patient seen and examined on the day of discharge. I agree with the discharge summary by Polina TELLEZ. I have reviewed the chart including labs, imaging and plans for discharge. patient is eating well, doing therapy, breathing is stable found him a bed at [place], he is not thrilled about going there but no other option - Deconditioning from recent hospitalization for COVID pneumonia, acute on chronic hypoxic respiratory failure PT/OT evaluations, he will go to [place] for more care and rehabilitation, his goal is to get back home Coding Level of Care Code D/C DAY MANAGEMENT >30 MINS Diagnoses Debilitated R53.81 Right lower lobe pneumonia J18.9 Weakness R53.1 COVID-19 U07.1 Permanent atrial fibrillation I48.21 Dyslipidemia E78.5 CAD (coronary artery disease) I25.10 COPD (chronic obstructive pulmonary disease) J44.9 Chronic heart failure with preserved ejection fraction I50.32 Aortic stenosis, mild I35.0 Chronic hypoxemic respiratory failure J96.11
[2021-08-09] MEDS: DIGOXIN 0.125 MG TAB PO SCH (15:51)
[2021-08-09] MEDS: WARFARIN SOD 4 MG TAB PO SCH (15:51)
== END 2021-08-09 16:04 | DRG 177 ==
LOC: ED 16:57 → SUATTDRO 20:32 → EDINP 20:32 → 2S 08-01 16:05 → 3E 08-06 18:42